=== PATIENT | male | born 1995 | race Caucasian/White ===

== ENCOUNTER 2018-03-30 19:15 | Emergency (ER) | payer OTHER ==
[~2018-03-30] VITALS: Ht 190.5 cm; Wt 133.8 kg
--- OUTSIDE RECORDS SUMMARY | 2018-03-30 19:21 | XMS REPORT ---
Author Author ARMANI KEITH [facility] Address [address] [place] [address] Care Team Providers Care Mail Technician Name Role Phone ARMANI KEITH Unavailable PROBLEMS Type Condition ICD9-CM Code VXO87-RC Code Onset Dates Condition Status SNOMED Code Problem Pain in thoracic spine 724.1 Active 696801299 Problem Sprain and strain of unspecified site of foot 845.10 Active 78333690 Problem Redness or discharge of eye 379.93 Active 75202748 Problem Encounter for removal of sutures V58.32 Active 37997907 Problem Personal history of other allergy, other than to medicinal agents V15.09 Active 132724540 Problem Other malaise and fatigue 780.79 Active 341383447 Problem Allergic rhinitis due to pollen 477.0 Active 55023662 Problem Acute tonsillitis 463 Active 74251609 Problem Need for prophylactic vaccination and inoculation, Influenza V04.81 Active 371449074 Problem Unspecified 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 Active 363595679 Problem Sprain and strain of unspecified site of hand 842.10 Active 50612949 Problem Lipoma of 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.0 Active 10780064 Problem Injury, other and unspecified, knee, leg, ankle, and foot 959.7 Active 465691627 Problem Insomnia, unspecified 780.52 Active 503515643 Problem Dehydration 276.51 Active 80914555 Problem Postnasal drip 784.91 Active 33105103 Problem Allergic rhinitis, unspecified allergic rhinitis trigger, unspecified rhinitis seasonality J30.9 Active 03277089 Problem Other chronic pain G89.29 Active 11149689 Problem Unspecified disorder of skin and subcutaneous tissue 709.9 Active 71914915 Problem Other accident caused by striking against or being struck accidentally by objects or persons E917.9 Active Problem Hip, thigh, leg, and ankle, abrasion or friction burn, infected 916.1 Active Problem Acute pharyngitis 462 Active 710897720 Problem Acute sinusitis, unspecified 461.9 Active 36820365 Problem 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 97441655 Problem Screening examination for venereal disease V74.5 Active 567108753 Problem Esophageal reflux 530.81 Active 504067111 Problem Other acne 706.1 Active 46367525 Problem Other convulsions 780.39 Active 05132117 Problem Sebaceous cyst 706.2 Active 432731281 Problem Pain in soft tissues of limb 729.5 Active 10452691 Problem Allergic rhinitis, due to food 477.1 Active 687298584 Problem Intestinal infection due to other organism, NEC 008.8 Active 87159043 Problem Pain in joint, site unspecified 719.40 Active 63728305 Problem Allergy, unspecified not elsewhere classified 995.3 Active 253312730 ALLERGIES No Known Allergies SOCIAL HISTORY No smoking Hx information available PLAN OF CARE VITAL SIGNS MEDICATIONS No Known Medications RESULTS No Results PROCEDURES No Known procedures IMMUNIZATIONS No Known Immunizations
--- OUTSIDE RECORDS SUMMARY | 2018-03-30 19:22 | XMS REPORT ---
Author ARMAIN Ruiz [facility] e[employer] Address Unknown Phone Unavailable Care Team Providers Care Director Of Outpatient Services Name Role Phone ARMANI KEITH CP Unavailable Allergies, Adverse Reactions, Alerts Substance Reaction Event Type Cephalexin rash Drug Allergy Aspirin dizziness Drug Allergy Amoxicillin Info Not Available Drug Allergy Problems Problem Type Condition Code Onset Dates Condition Status Problem Sprain and strain of unspecified site of foot 845.10 Active Problem Other acne 706.1 Active Problem Encounter for removal of sutures V58.32 Active Problem Pain in thoracic spine 724.1 Active Problem Redness or discharge of eye 379.93 Active Problem Personal history of other allergy, other than to medicinal agents V15.09 Active Problem Other malaise and fatigue 780.79 Active Problem Allergic rhinitis due to pollen 477.0 Active Problem Acute tonsillitis 463 Active Problem Intestinal infection due to other organism, NEC 008.8 Active Problem Need for prophylactic vaccination and inoculation, Influenza V04.81 Active Problem Unspecified 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 Active Problem Sprain and strain of unspecified site of hand 842.10 Active Problem Lipoma of 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.0 Active Problem Postnasal drip 784.91 Active Problem Insomnia, unspecified 780.52 Active Problem Other chronic pain G89.29 Active Problem 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 Problem Other accident caused by striking against or being struck accidentally by objects or persons E917.9 Active Problem Hip, thigh, leg, and ankle, abrasion or friction burn, infected 916.1 Active Problem Allergic rhinitis, unspecified allergic rhinitis trigger, unspecified rhinitis seasonality J30.9 Active Problem Injury, other and unspecified, knee, leg, ankle, and foot 959.7 Active Problem Acute sinusitis, unspecified 461.9 Active Problem Dehydration 276.51 Active Problem Screening examination for venereal disease V74.5 Active Problem Acute pharyngitis 462 Active Assessment Low back pain M54.5 Active Problem Pain in soft tissues of limb 729.5 Active Assessment Allergic rhinitis, unspecified allergic rhinitis trigger, unspecified rhinitis seasonality J30.9 Active Problem Esophageal reflux 530.81 Active Problem Unspecified disorder of skin and subcutaneous tissue 709.9 Active Assessment Other chronic pain G89.29 Active Problem Sebaceous cyst 706.2 Active Problem Allergy, unspecified not elsewhere classified 995.3 Active Problem Allergic rhinitis, due to food 477.1 Active Problem Other convulsions 780.39 Active Problem Pain in joint, site unspecified 719.40 Active Medications Medication Code System Code Instructions Start Date End Date Status Dosage Depakote ER [facility] [address]-72 500 MG Orally 3 times a day 1 tablet Xyzal [facility] [address]-09 5 mg Orally Once a day Aug 28, 2016 Oct 27, 2016 1 tablet in the evening PredniSONE [facility] [address]-04 20 mg Orally Once a day Aug 28, 2016 Sep 02, 2016 2 tablets Naproxen [facility] [address]-14 500 MG Orally every 12 hrs Aug 28, 2016 1 tablet as needed Procedures Procedure Coding System Code Date Office Visit, Est Pt., Level 3 CPT-4 77117 Aug 28, 2016 Vital Signs Date/Time: Aug 28, 2016 Cardiac Monitoring Heart Rate 80 bpm Weight 274.0 lbs Height 74 in BMI 35.18 Index Blood Pressure Diastolic 74 mmHg Blood Pressure Systolic 124 mmHg Results No Known Results Summary Purpose eClinical[employer] Submission
--- OUTSIDE RECORDS SUMMARY | 2018-03-30 19:22 | XMS REPORT ---
Author Author NILE MOELLER Organization [employer] Address Unknown Phone Unavailable Care Team Providers Care Video Game Animator Name Role Phone NILE MOELLER CP Unavailable Allergies, Adverse Reactions, Alerts Substance Reaction Event Type Cephalexin rash Drug Allergy Aspirin dizziness Drug Allergy Amoxicillin Info Not Available Drug Allergy Problems Problem Type Condition Code Onset Dates Condition Status Assessment Acute pharyngitis, unspecified J02.9 Active Assessment Acute upper respiratory infection, unspecified J06.9 Active Problem Sprain and strain of unspecified site of foot 845.10 Active Problem Other acne 706.1 Active Problem Pain in thoracic spine 724.1 Active Problem Encounter for removal of sutures V58.32 Active Problem Redness or discharge of eye 379.93 Active Problem Personal history of other allergy, other than to medicinal agents V15.09 Active Problem Other malaise and fatigue 780.79 Active Problem Allergy, unspecified not elsewhere classified 995.3 Active Problem Allergic rhinitis due to pollen 477.0 Active Problem Allergic rhinitis, due to food 477.1 Active Problem Acute tonsillitis 463 Active Problem Intestinal infection due to other organism, NEC 008.8 Active Problem Lipoma of 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.0 Active Problem Unspecified 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 Active Problem Screening examination for venereal disease V74.5 Active Problem Acute pharyngitis 462 Active Problem Injury, other and unspecified, knee, leg, ankle, and foot 959.7 Active Problem Sprain and strain of unspecified site of hand 842.10 Active Problem 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 Problem Need for prophylactic vaccination and inoculation, Influenza V04.81 Active Problem Postnasal drip 784.91 Active Problem Insomnia, unspecified 780.52 Active Problem Acute sinusitis, unspecified 461.9 Active Problem Dehydration 276.51 Active Assessment Allergic rhinitis J30.9 Active Problem Unspecified disorder of skin and subcutaneous tissue 709.9 Active Assessment Other viral agents as the cause of diseases classified elsewhere B97.89 Active Problem Sebaceous cyst 706.2 Active Problem Hip, thigh, leg, and ankle, abrasion or friction burn, infected 916.1 Active Problem Other accident caused by striking against or being struck accidentally by objects or persons E917.9 Active Problem Other convulsions 780.39 Active Problem Pain in joint, site unspecified 719.40 Active Problem Pain in soft tissues of limb 729.5 Active Problem Esophageal reflux 530.81 Active Medications Medication Code System Code Instructions Start Date End Date Status Dosage Xyzal [facility] [address]-92 5 MG Orally Once a day 1 tablet in the evening Flonase [facility] [address]-43 50 MCG/ACT Nasally 2 times a day for allergies Aug 07, 2015 1 spray in each nostril Depakote ER [facility] [address]-81 500 MG Orally 3 times a day 1 tablet Procedures Procedure Coding System Code Date Office Visit, Est Pt., Level 3 CPT-4 39473 Nov 26, 2015 STREP A ASSAY W/OPTIC CPT-4 43254 Nov 26, 2015 Vital Signs Date/Time: Nov 26, 2015 Temperature 98.2 F Weight 269.6 lbs Height 74 in BMI 34.61 Index Blood Pressure Diastolic 80 mmHg Blood Pressure Systolic 142 mmHg Cardiac Monitoring Heart Rate 86 bpm Results No Known Results Summary Purpose eClinicalWorks Submission
--- OUTSIDE RECORDS SUMMARY | 2018-03-30 19:22 | XMS REPORT ---
Author Author ARMANI KEITH Organization [facility] Address [address] [place] [address] Care Team Providers Care Android Developer Name Role Phone ARMANI KEITH Unavailable PROBLEMS Type Condition ICD9-CM Code ATA22-GC Code Onset Dates Condition Status SNOMED Code Problem Bladder spasms N32.89 Active [id number] ALLERGIES Substance Reaction Event Type Date Status Wasp Venom Unknown Drug Allergy Jul, Active Cephalexin rash Drug Allergy Jul, Active Bactrim DS Unknown Drug Allergy Jul, Active Aspirin dizziness Drug Allergy Jul, Active Amoxicillin Unknown Drug Allergy Jul, Active ENCOUNTERS Encounter Location Date Diagnosis [facility] [address] [address] March, [facility] [address] [address] Feb, Pharyngitis due to other organism J02.8 [facility] [address] [place] [address] Feb, Pharyngitis due to other organism J02.8 [facility] [id number] [place] [address] Feb, Sore throat J02.9 ; Fatigue, unspecified type R53.83 and Strep pharyngitis J02.0 [facility] [id number] [place] [address]72 Feb, Acute nasopharyngitis J00 [facility] [id number] [place] [address]37 -[address]605 Feb, Lower abdominal pain R10.30 [facility] [address] [address] Feb, Bladder spasms N32.89 and Urinary frequency R35.0 [facility] [place] [address] [address] Jan, Strep throat J02.0 [facility] [place] [address] [address] -[address]60 Dec, Seasonal allergic rhinitis, unspecified trigger J30.2 [place] [address] [address] Nov, Acute suppurative otitis media of both ears without spontaneous rupture of tympanic membranes, recurrence not specified H66.003 [facility] [place] [address] [address] Nov, Acute suppurative otitis media of both ears without spontaneous rupture of tympanic membranes, recurrence not specified H66.003 [facility] [place] [address] [address] Nov, Acute suppurative otitis media of both ears without spontaneous rupture of tympanic membranes, recurrence not specified H66.003 [place] [address] [address] Oct, [place] [address] [address] Jul, Seizures R56.9 [place] [address] [address]- [address] 14 Jul, 2017 Seizures R56.9 ; Other chronic pain G89.29 ; Pain in left ankle and joints of left foot M25.572 and Allergic rhinitis, unspecified allergic rhinitis trigger, unspecified rhinitis seasonality J30.9 [facility] [place] [address] 24[address] -9811 07 Jul, 2017 Acute seasonal allergic rhinitis due to other allergen J30.89 [facility] [place] [address] 61362 -[address] Jun, Left foot pain M79.672 and Left lateral ankle pain M25.[address] [address] Aug, Allergic rhinitis, unspecified allergic rhinitis trigger, unspecified rhinitis seasonality J30.9 ; Low back pain M54.5 and Other chronic pain G89.29 [facility] [address] [place] [address]76 Jul, [facility] [address] [place] [address] 46584 -4512 Jul, Low back pain M54.5 and Other chronic pain G89.29 [facility] [address] [address] Jul, Acute maxillary sinusitis, recurrence not specified J01.00 [facility] [address] [address] Jun, Cellulitis of left lower extremity L03.116 [facility] [address] [address]68 -1194 Apr, Wrist pain, left M25.532 [facility] [address] [address]87 March, Low back pain M54.5 ; Fever, unspecified R50.9 and Strep pharyngitis J02.0 [facility] [address] [address] March, Hordeolum externum of left upper eyelid H00.014 and Acute follicular conjunctivitis of left eye H10.[address] [address]67 Jan, Folliculitis L73.9 [facility] [address] 28[address] -[address]67 Jan, Screen for sexually transmitted diseases Z11.3 [place] [id number] [place] [address] 38157- 2480 Nov, [facility] [id number] [place] [address] 63460- 1685 Nov, Gen idiopathic epilepsy, not intractable, 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 [facility] [address] [place] [address] 0[address]01 -2885 Nov, Malaise R53.81 ; Upper respiratory infection J06.9 and Pharyngitis J02.9 [facility] [id number] [place] [address] 14216 -6916 Nov, Acute pharyngitis, unspecified J02.9 ; Acute upper respiratory infection, unspecified J06.9 ; Other viral agents as the cause of diseases classified elsewhere B97.89 and Allergic rhinitis J30.9 [facility] [id number] [place] [address] 59670 -8044 Oct, Testicular pain N50.8 [place] [address] [place] [address] [id number] [place] [address] 87154- 5113 15 Jul, 2015 Sinusitis 473.9 [place] [address] [place] [address] [id number] [place] [address] 75918- 9015 12 Apr, 2015 Back pain 724.5 [place] [address] [place] [id number] [place] [address] 14604- 9475 11 Apr, 2015 [place] [address] [place] [address] [id number] [place] [address] 19842- 0269 14 Feb, 2015 [facility] [id number] [place] [address] 22252- 0929 Feb, [facility] [id number] [place] [address] 94026- 3931 04 Jan, 2015 [facility] [id number] [place] [address] 08942- 9211 Nov, [facility] [id number] [place] [address] 77653- 6961 Nov, [facility] [place] [facility] [address] [id number] [place] [address]- 8533 Nov, [facility] [place] [facility] [address] [id number] [place] [address]- 6582 Nov, [facility] [place] [facility] [address] [facility] [id number] [place] [address]- 8803 Oct, [facility] [place] [facility] [address] [id number] [place] [address]- 3604 Oct, [facility] [place] [facility] [address] [id number] [place] [address]- 4332 Aug, [facility] [place] [facility] [address] [id number] [place] [address]- 0913 Aug, [facility] [place] [facility] [address] [id number] [place] [address]- 9861 Aug, [facility] [place] [facility] [address] [id number] [place] [address]- 2933 Aug, [facility] [place] [facility] [address] [id number] [place] [address]- 5635 Aug, [facility] [place] [facility] [address] [facility] [id number] [place] [address]- 5095 Aug, [facility] [place] [facility] [address] [id number] [place] [address]- 6524 Aug, [facility] [place] [facility] [address] [id number] [place] [address]- 9000 Aug, [facility] [place] [facility] [address] [id number] [place] [address]- 8216 Jun, [facility] [place] [facility] [address] [id number] [place] [address]- 9747 Jun, [facility] [place] [facility] [address] [facility] [id number] [place] [address]- 0088 Jun, [facility] [place] [facility] [address] [id number] [place] [address]- 1926 Jun, [facility] [place] [facility] [address] [id number] [place] [address]- 7031 Jun, [facility] [place] [facility] [address] [id number] [place] [address]- 8935 Jun, [facility] [place] [facility] [address] [id number] [place] [address]- 0208 Jun, [facility] [place] [facility] [address] [id number] [place] [address]- 0010 Jun, [facility] [place] [facility] [address] [id number] [place] [address]- 5240 Jun, [facility] [place] [facility] [address] [id number] [place] [address]- 2322 Jun, [facility] [place] [facility] [address] [id number] [place] [address]- 7030 May, [facility] [place] [facility] [address] [id number] [place] [address]- 3098 May, [facility] [place] [facility] [address] [id number] [place] [address]- 4373 March, [facility] [place] [facility] [address] [id number] [place] [address]- 0253 March, [facility] [place] [facility] [address] [id number] [place] [address]- 5335 March, [facility] [place] [facility] [address] [id number] [place] [address]- 3931 March, [facility] [place] [facility] [address] [id number] [place] [address]27 Feb, [facility] [place] [facility] [address] [id number] [place] 2115 Feb, [facility] [place] [facility] [address] [id number] [place] [address]- 3649 Jan, [facility] [place] [facility] [address] [id number] [place] [address]- 1739 Jan, [facility] [place] [facility] [address] [id number] [place] [address]- 3676 Jan, [facility] [place] [facility] [address] [id number] [place] [address]- 8489 Jan, [facility] [place] [facility] [address] [id number] [place] [address]- 3199 Dec, [facility] [place] [facility] [address] [id number] [place] [address]- 7101 Dec, [facility] [place] [facility] [address] [id number] [place] [address]- 6610 Dec, [facility] [place] [facility] [address] [id number] [place] [address]- 9892 Dec, [facility] [place] [facility] [address] [id number] [place] [address]- 3535 Dec, [facility] [place] [facility] [address] [id number] [place] [address]- 7421 Dec, [facility] [place] [facility] [address] [id number] [place] [address]- 8003 Nov, [facility] [place] [facility] [address] [id number] [place] [address]- 2961 Nov, [facility] [place] [facility] [address] [id number] [place] [address]- 7409 Nov, [facility] [place] [facility] [address] [id number] [place] [address]- 3472 Nov, [facility] [place] [facility] [address] [id number] [place] [address]- 4938 Nov, [facility] [place] [facility] [address] [id number] [place] [address]- 2647 Nov, [facility] [place] [facility] [address] [id number] [place] [address]- 9164 Nov, [facility] [address] [id number] [place] [address]- 7776 Nov, [facility] [address] [id number] [place] [address]- 6293 Nov, [facility] [address] [id number] [place] [address]- 0952 Nov, [facility] [address] [id number] [place] [address]- 7983 Nov, [facility] [address] [id number] [place] [address]- 6282 Nov, [facility] [address] [id number] [place] [address]- 7771 Oct, [facility] [address] [id number] [place] [address]- 9973 Oct, [facility] [address] [id number] [place] [address]- 2243 Oct, [facility] [address] [id number] [place] [address]- 4090 Oct, [facility] [address] [id number] [place] [address]- 4168 Sep, [facility] [address] [id number] [place] [address]- 7216 Sep, [facility] [address] [id number] [place] [address]- 1741 Sep, [facility] [place] [facility] [address] [id number] [place] [address]- 6164 Sep, [facility] [address] [id number] [place] [address]- 9573 Sep, [facility] [address] [id number] [place] [address]- 4193 Sep, [facility] [place] [facility] [address] [id number] [place] [address]- 4558 Sep, [facility] [place] [facility] [address] [id number] [place] [address]- 7346 Sep, [facility] [place] [facility] [address] [id number] [place] [address]- 7905 30 Jul, 2013 [facility] [place] [facility] [address] [id number] [place] [address]- 7679 Jul, [facility] [place] [facility] [address] [id number] [place] [address]- 4538 May, [facility] [place] [facility] [address] [id number] [place] [address]- 8669 Apr, [facility] [place] [facility] [address] [id number] [place] [address]- 4543 Apr, [facility] [place] [facility] [address] [id number] [place] [address]- 2220 Apr, [facility] [place] [facility] [address] [id number] [place] [address]- 1383 Apr, [facility] [place] [facility] [address] [id number] [place] [address]- 0874 Apr, [facility] [place] [facility] [address] [id number] [place] [address]- 7872 Apr, [facility] [place] [facility] [address] [id number] [place] [address]- 0619 Apr, [facility] [place] [facility] [address] [id number] [place] [address]- 9677 March, [facility] [place] [facility] [address] [id number] [place] [address]- 1954 March, [facility] [place] [facility] [address] [id number] [place] [address]- 9176 Jan, [facility] [place] [facility] [address] [id number] [place] [address]- 9336 28 Dec, 2012 [facility] [address] [id number] [place] [address]- 9210 17 Nov, 2012 [facility] [place] [facility] [address] [id number] [place] [address]- 0334 Nov, [facility] [address] [id number] [place] [address]- 3437 Oct, [facility] [place] [facility] [address] [id number] [place] [address]- 1721 Oct, [facility] [place] [facility] [address] [id number] [place] [address]- 2806 Oct, [facility] [place] [facility] [address] [id number] [place] [address]- 6179 Oct, [facility] [address] [id number] [place] [address]- 2397 Oct, [facility] [place] [facility] [address] [id number] [place] [address]- 7882 Oct, [facility] [place] [facility] [address] [id number] [place] [address]- 3952 Sep, [facility] [place] [facility] [address] [id number] [place] [address]- 5846 Sep, [facility] [place] [facility] [address] [id number] [place] [address]- 5539 Sep, [facility] [place] [facility] [address] [id number] [place] [address]- 3848 Sep, [facility] [place] [facility] [address] [id number] [place] [address]- 3162 Sep, [facility] [place] [facility] [address] [id number] [place] [address]- 8676 Sep, [facility] [place] [facility] [address] [id number] [place] [address]- 4749 Sep, [facility] [place] [facility] [address] [id number] [place] [address]- 8880 Sep, [facility] [place] [facility] [address] [id number] [place] [address]- 2375 Sep, [facility] [place] [facility] [address] [id number] [place] 8936 Sep, [facility] [place] [facility] [address] [id number] [place] [address]- 1874 Sep, [facility] [place] [facility] [address] [id number] [place] [address]- 0870 Sep, [facility] [place] [facility] [address] [id number] [place] [address]- 5050 Aug, [facility] [place] [facility] [address] [id number] [place] [address]- 1430 Aug, [facility] [place] [facility] [address] [id number] [place] [address]- 8944 Aug, [facility] [place] [facility] [address] [id number] [place] [address]- 4863 Aug, [facility] [place] [facility] [address] [id number] [place] [address]- 5661 Aug, [facility] [place] [facility] [address] [id number] [place] [address]- 7026 Aug, [facility] [place] [facility] [address] [id number] [place] [address]- 5469 Aug, [facility] [place] [facility] [address] [id number] [place] [address]- 3518 Aug, [facility] [place] [facility] [address] [id number] [place] [address]- 8184 Aug, [facility] [place] [facility] [address] [id number] [place] 4007 Aug, [facility] [place] [facility] [address] [id number] [place] [address]- 1659 Jul, [facility] [place] [facility] [address] [id number] [place] [address]- 2093 Jul, [facility] [place] [facility] [address] [id number] [place] [address]- 3196 Jun, [facility] [place] [facility] [address] [id number] [place] [address]- 3709 Jun, [facility] [place] [facility] [address] [id number] [place] [address]- 9797 Jun, [facility] [place] [facility] [address] [id number] [place] [address]- 2903 May, [facility] [place] [facility] [address] [id number] [place] [address]- 6378 May, [facility] [place] [facility] [address] [id number] [place] [address]- 0568 May, [facility] [place] [facility] [address] [id number] [place] [address]- 5990 May, [facility] [place] [facility] [address] [id number] [place] [address]- 0717 Apr, [facility] [place] [facility] [address] [id number] [place] [address]- 7275 Apr, [facility] [place] [facility] [address] [id number] [place] [address]- 0386 Apr, [facility] [place] [facility] [address] [id number] [place] [address]- 9705 Apr, [facility] [place] [facility] [address] [id number] [place] [address]- 8442 March, [facility] [place] [facility] [address] [id number] [place] [address]- 9776 Jan, [facility] [place] [facility] [address] [id number] [place] [address]- 0776 Dec, [facility] [place] [facility] [address] [address]- 9408 Dec, [facility] [address] [address]- 3067 Oct, [facility] [address] [address]- 9165 Oct, [facility] [id number] [place] [address]- 6196 Oct, [facility] [address] [id number] [address]- 1944 Oct, [facility] [id number] [place] [address], [place] [address]- 8505 Oct, [facility] [address] [address]- 5637 Oct, [facility] [id number] [place] [address]53- 5806 Oct, [facility] [address] [address]- 2595 Oct, [facility] [address] [address]- 1279 Sep, [facility] [address] [address]- 8319 Sep, [facility] [address] [address]- 6063 Sep, [facility] ([facility] [id number] [address] Sep, [facility] ([facility] [id number] [address] Aug, [facility] ([facility] [id number] [address] Jul, 2011 IMMUNIZATIONS Vaccine Route Administration Date Status SOLUMEDROL (UP TO 125 MG) Unknown Aug 06, 2017 Administered SOCIAL HISTORY Never Assessed REASON FOR VISIT CHM f/u, medication refilled, needs neurologist referral, toes and ankle still in pain from previous injury--Fidelia Hernandez MA PLAN OF CARE VITAL SIGNS Height 74 in 2017-08-06 Weight 292.6 lbs 2017-08-06 Temperature 97.7 degrees Fahrenheit 2017-08-06 Heart Rate 82 bpm 2017-08-06 Respiratory Rate 20 2017-08-06 BMI 37.56 kg/m2 2017-08-06 Blood pressure systolic 124 mmHg 2017-08-06 Blood pressure diastolic 86 mmHg 2017-08-06 MEDICATIONS Medication Instructions Dosage Frequency Start Date End Date Duration Status Depakote ER 500 mg Orally 2 times a day 2 tablets 12h Active Naproxen 500 MG Orally every 12 hrs 1 tablet as needed 12h Aug, Active EPINEPHrine 0.3 MG/0.3ML Injection 1 time as needed 0.3 mg IM Active Flonase 50 MCG/ACT Nasally 2 times a day for allergies 1 spray in each nostril Jul, Active Keppra XR 500 mg Orally Once a day 2 tablets 24h Active Xyzal 5 mg Orally Once a day 1 tablet in the evening 24h Jun, Nov, 30 day(s) Active RESULTS No Results PROCEDURES Procedure Date Ordered Result Body Site SOLUMEDROL (UP TO 125 MG) Aug 06, 2017 THER/PROPH/DIAG INJ, SC/IM Aug 06, 2017 INSTRUCTIONS MEDICATIONS ADMINISTERED No Known Medications MEDICAL (GENERAL) HISTORY Type Description Date Medical History seizures Medical History allergic rhinitis Medical History mood disorder Medical History back pain
--- OUTSIDE RECORDS SUMMARY | 2018-03-30 19:22 | XMS REPORT ---
Author Author GUILLERMINA Ortiz [facility] Address [address] [place] [address] Care Team Providers Care Crab Steamer Name Role Phone jeffSALENAGUILLERMINA IRENE Unavailable PROBLEMS Type Condition ICD9-CM Code PLM44-YQ Code Onset Dates Condition Status SNOMED Code Problem Bladder spasms N32.89 Active 599765702 ALLERGIES Substance Reaction Event Type Date Status Cephalexin rash Drug Allergy Jul, Active Aspirin dizziness Drug Allergy Jul, Active Amoxicillin Unknown Drug Allergy Jul, Active ENCOUNTERS Encounter Location Date Diagnosis [place] [address] [address] March, [facility] [address] [address] Feb, Pharyngitis due to other organism J02.8 [facility] [address] [address] Feb, Pharyngitis due to other organism J02.8 [facility] [address] [place] [id number] [place] [address]90 Feb, Sore throat J02.9 ; Fatigue, unspecified type R53.83 and Strep pharyngitis J02.0 [facility] [address] [place] [id number] [place] [address]6625 Feb, Acute nasopharyngitis J00 [facility] [address] [address] Feb, Lower abdominal pain R10.30 [facility] [address] [place] [id number] [place] [address]25 -2431 02 Apr, 2018 Bladder spasms N32.89 and Urinary frequency R35.0 [facility] [address] [place] [id number] [place] [address] -1088 Jan, Strep throat J02.0 [facility] WALK [facility] [place] [address] [address] [place] [id number] [place] [address]28 -1358 Dec, Seasonal allergic rhinitis, unspecified trigger J30.2 [place] [address] [address] Nov, Acute suppurative otitis media of both ears without spontaneous rupture of tympanic membranes, recurrence not specified H66.003 [facility] WALK [place] [address] [address] Nov, Acute suppurative otitis media of both ears without spontaneous rupture of tympanic membranes, recurrence not specified H66.003 [facility] WALK IN [place] [address] [address] Nov, Acute suppurative otitis media of both ears without spontaneous rupture of tympanic membranes, recurrence not specified H66.003 [place] [address] [address] [place] [id number] [place] [address] 22790- 1596 Oct, [place] [address] [address] 21 Jul, 2017 Seizures R56.9 [place] [address] [address] [place] [id number] [place] [address] 25905- 6787 14 Jul, 2017 Seizures R56.9 ; Other chronic pain G89.29 ; Pain in left ankle and joints of left foot M25.572 and Allergic rhinitis, unspecified allergic rhinitis trigger, unspecified rhinitis seasonality J30.9 [facility] WALK [place] [address] 46[address] -[address]42 07 Jul, 2017 Acute seasonal allergic rhinitis due to other allergen J30.89 [facility] WALK [place] [address] [address] [place] [id number] [place] [address]19 -1797 Jun, Left foot pain M79.672 and Left lateral ankle pain M25.572 [place] [id number] [place] [address]98- 4286 Aug, Allergic rhinitis, unspecified allergic rhinitis trigger, unspecified rhinitis seasonality J30.9 ; Low back pain M54.5 and Other chronic pain G89.29 [facility] [address] [place] [address]8 Jul, [facility] [address] [place] [address] 53598 -2570 Jul, Low back pain M54.5 and Other chronic pain G89.29 [facility] [address] [address] Jul, Acute maxillary sinusitis, recurrence not specified J01.00 [facility] [address] [address] Jun, Cellulitis of left lower extremity L03.116 [facility] [address] [address]60 Apr, Wrist pain, left M25.532 [facility] [address] [address] March, Low back pain M54.5 ; Fever, unspecified R50.9 and Strep pharyngitis J02.0 [facility] WALK IN [address] [address] March, Hordeolum externum of left upper eyelid H00.014 and Acute follicular conjunctivitis of left eye H10.[address] [address] Jan, Folliculitis L73.9 [facility] [address] [address]6 Jan, Screen for sexually transmitted diseases Z11.[address] [address]- [address]79 Nov, [facility] [address] [place] [id number] [place] [address] 14413- 4640 Nov, Gen idiopathic epilepsy, not intractable, 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 [facility] WALK IN [facility] [id number] [place] [address]61 -5766 Nov, Malaise R53.81 ; Upper respiratory infection J06.9 and Pharyngitis J02.9 [facility] [address] [place] [id number] [place] [address]127 -5695 Nov, Acute pharyngitis, unspecified J02.9 ; Acute upper respiratory infection, unspecified J06.9 ; Other viral agents as the cause of diseases classified elsewhere B97.89 and Allergic rhinitis J30.9 [facility] [address] [place] [id number] [place] [address] 88429 -1886 Oct, Testicular pain N50.8 [place] [address] [address] [place] [id number] [place] [address] 66184- 9855 15 Jul, 2015 Sinusitis 473.9 [place] [address] [address] [place] [id number] [place] [address] 81192- 2698 12 Apr, 2015 Back pain 724.5 [place] [address] [address] [place] [id number] [place] [address] 33557- 3393 11 Apr, 2015 [place] [address] [place] [id number] [place] [address] 02558- 3550 14 Feb, 2015 [place] [address] [address] [place] [id number] [place] [address] 28954- 3916 13 Feb, 2015 [place] [address] [address]- 2701 04 Jan, 2015 [facility] [address] [place] [id number] [place] [address] 83400- 2676 14 Nov, 2014 [place] [address] [address] [place] [id number] [place] [address] 83394- 7062 Nov, [facility] [place] [facility] [address] [id number] [place] [address]- 1826 Nov, [facility] [place] [facility] [address] [id number] [place] [address]- 3692 Nov, [facility] [place] [facility] [address] [id number] [place] [address]- 6696 Oct, [facility] [place] [facility] [address] [id number] [place] [address]- 7509 Oct, [facility] [place] [facility] [address] [id number] [place] [address]- 9483 Aug, [facility] [place] [facility] [address] [id number] [place] [address]- 9115 Aug, [facility] [place] [facility] [address] [id number] [place] [address]- 0775 Aug, [facility] [place] [facility] [address] [id number] [place] [address]- 4874 Aug, [facility] [place] [facility] [address] [id number] [place] [address]- 0788 Aug, [facility] [place] [facility] [address] [id number], [place] [address]- 8503 Aug, [facility] [place] [facility] [address] [id number], [place] [address]- 1041 Aug, [facility] [place] [facility] [address] [id number], [place] [address]- 4127 Aug, [facility] [place] [facility] [address] [id number] [place] [address]- 7103 Jun, [facility] [place] [facility] [address] [id number], [place] [address]- 0643 Jun, [facility] [place] [facility] [address] [id number], [place] [address]- 1794 Jun, [facility] [place] [facility] [address] [id number], [place] [address]- 3873 Jun, [facility] [place] [facility] [address] [id number] [place] [address]- 4501 Jun, [facility] [place] [facility] [address] [id number] [place] [address]- 5674 Jun, [facility] [place] [facility] [address] [id number] [place] [address]- 5499 Jun, [facility] [place] [facility] [address] [id number] [place] [address]- 0412 Jun, [facility] [place] [facility] [address] [id number] [place] [address]- 2577 Jun, [facility] [place] [facility] [address] [id number] [place] [address]- 2071 Jun, [facility] [place] [facility] [address] [id number] [place] [address]- 8610 May, [facility] [place] [facility] [address] [id number] [place] [address]- 9924 May, [facility] [place] [facility] [address] [id number] [place] [address]- 6750 March, [facility] [place] [facility] [address] [id number] [place] [address]- 9587 March, [facility] [place] [facility] [address] [id number] [place] [address]- 7031 March, [facility] [place] [facility] [address] [id number] [place] [address]- 7542 March, [facility] [place] [facility] [address] [id number] [place] [address]- 1264 Feb, [facility] [place] [facility] [address] [id number] [place] [address]- 4150 Feb, [facility] [place] [facility] [address] [id number] [place] [address]- 5406 Jan, [facility] [place] [facility] [address] [id number] [place] [address]- 7596 Jan, [facility] [place] [facility] [address] [id number] [place] [address]- 3083 Jan, [facility] [place] [facility] [address] [id number] [place] [address]- 8042 Jan, [facility] [place] [facility] [address] [id number] [place] [address]- 1010 Dec, [facility] [place] [facility] [address] [id number] [place] [address]- 2446 Dec, [facility] [place] [facility] [address] [id number] [place] [address]- 3895 Dec, [facility] [place] [facility] [address] [id number] [place] [address]- 8103 Dec, [facility] [place] [facility] [address] [id number] [place] [address]- 4192 Dec, [facility] [place] [facility] [address] [id number] [place] [address]- 9820 Dec, [facility] [place] [facility] [address] [id number] [place] [address]- 6442 Nov, [facility] [place] [facility] [address] [id number] [place] [address]- 7716 Nov, [facility] [place] [facility] [address] [id number] [place] [address]- 3625 Nov, [facility] [place] [facility] [address] [id number] [place] [address]- 4159 Nov, [facility] [place] [facility] [address] [id number] [place] [address]- 2379 Nov, [facility] [place] [facility] [address] [id number] [place] [address]- 5719 Nov, [facility] [place] [facility] [address] [id number], [place] [address]- 8818 Nov, [facility] [address] [id number] [place] [address]- 8296 Nov, [facility] [place] [facility] [address] [id number] [place] 0884 Nov, [facility] [place] [facility] [address] [id number] [place] [address]- 2146 Nov, [facility] [place] [facility] [address] [id number] [place] [address]- 3174 Nov, [facility] [place] [facility] [address] [id number] [place] [address]- 8870 Nov, [facility] [place] [facility] [address] [id number] [place] [address]- 7526 Oct, [facility] [address] [id number] [place] [address]- 2152 Oct, [facility] [place] [facility] [address] [id number] [place] [address]- 6960 Oct, [facility] [place] [facility] [address] [id number] [place] [address]- 4937 Oct, [facility] [place] [facility] [address] [id number] [place] [address]- 8842 Sep, [facility] [place] [facility] [address] [id number] [place] [address]- 3170 Sep, [facility] [place] [facility] [address] [id number] [place] [address]- 7081 Sep, [facility] [place] [facility] [address] [id number] [place] [address]- 3047 Sep, [facility] [place] [facility] [address] [id number] [place] [address]- 2475 Sep, [facility] [place] [facility] [address] [id number] [place] [address]- 8067 Sep, [facility] [place] [facility] [address] [id number] [place] [address]- 5964 Sep, [facility] [address] [id number] [place] [address]- 9838 Sep, [facility] [place] [facility] [address] [id number] [place] [address]- 7317 30 Jul, 2013 [facility] [place] [facility] [address] [id number] [place] [address]- 2839 Jul, [facility] [place] [facility] [address] [id number] [place] [address]- 8958 May, [facility] [address] [id number] [place] [address]- 7037 Apr, [facility] [place] [facility] [address] [id number] [place] [address]- 4516 Apr, [facility] [place] [facility] [address] [id number] [place] [address]- 8953 Apr, [facility] [address] [id number] [place] [address]- 8135 Apr, [facility] [place] [facility] [address] [id number] [place] [address]- 0801 Apr, [facility] [place] [facility] [address] [id number] [place] [address]- 7891 Apr, [facility] [place] [facility] [address] [id number] [place] [address]- 0720 Apr, [facility] [place] [facility] [address] [id number] [place] [address]- 5400 March, [facility] [place] [facility] [address] [id number] [place] [address]- 1287 March, [facility] [place] [facility] [address] [id number] [place] [address]- 2546 Jan, [facility] [place] [facility] [address] [id number] [place] [address]- 0644 Dec, [facility] [place] [facility] [address] [id number] [place] [address]- 6647 Nov, [facility] [place] [facility] [address] [id number] [place] [address]- 1533 Nov, [facility] [place] [facility] [address] [id number] [place] [address]- 7400 Oct, [facility] [place] [facility] [address] [id number] [place] [address]- 0572 Oct, [facility] [place] [facility] [address] [id number] [place] [address]- 4134 Oct, [facility] [place] [facility] [address] [id number] [place] [address]- 2441 Oct, [facility] [place] [facility] [address] [id number] [place] [address]- 3270 Oct, [facility] [place] [facility] [address] [id number] [place] [address]- 4257 Oct, [facility] [place] [facility] [address] [id number] [place] [address]- 4224 Sep, [facility] [place] [facility] [address] [id number] [place] [address]- 0651 Sep, [facility] [place] [facility] [address] [id number], [place] [address]- 7086 Sep, [facility] [place] [facility] [address] [id number], [place] [address]- 5337 Sep, [facility] [place] [facility] [address] [id number] [place] [address]- 6960 Sep, [facility] [place] [facility] [address] [id number] [place] [address]- 5837 Sep, [facility] [place] [facility] [address] [id number] [place] [address]- 0904 Sep, [facility] [place] [facility] [address] [id number] [place] [address]- 0558 Sep, [facility] [place] [facility] [address] [id number] [place] [address]- 6346 Sep, [facility] [place] [facility] [address] [id number] [place] 3616 Sep, [facility] [place] [facility] [address] [id number] [place] [address]- 2749 Sep, [facility] [place] [facility] [address] [id number] [place] [address]- 2299 Sep, [facility] [place] [facility] [address] [id number] [place] [address]- 7290 Aug, [facility] [place] [facility] [address] [id number] [place] [address]- 7785 Aug, [facility] [place] [facility] [address] [id number] [place] [address]- 0416 Aug, [facility] [place] [facility] [address] [id number] [place] [address]- 4421 Aug, [facility] [place] [facility] [address] [id number] [place] [address]- 9242 Aug, [facility] [place] [facility] [address] [facility] [id number] [place] [address]- 9763 Aug, [facility] [place] [facility] [address] [id number] [place] [address]- 5556 Aug, [facility] [place] [facility] [address] [id number], [place] [address]- 0468 Aug, [facility] [place] [facility] [address] [id number] [place] [address]- 8205 Aug, [facility] [place] [facility] [address] [facility] [id number] [place] [address]- 3719 Aug, [facility] [place] [facility] [address] [id number], [place] [address]- 2369 24 Jul, 2012 [facility] [place] [facility] [address] [id number] [place] [address]- 1159 Jul, [facility] [place] [facility] [address] [id number] [place] [address]- 2859 Jun, [facility] [place] [facility] [address] [id number] [place] [address]- 1664 Jun, [facility] [place] [facility] [address] [id number] [place] [address]- 9215 Jun, [facility] [place] [facility] [address] [id number] [place] [address]- 0947 May, [facility] [place] [facility] [address] [id number] [place] [address]- 6883 May, [facility] [place] [facility] [address] [id number] [place] [address]- 3873 May, [facility] [place] [facility] [address] [id number] [place] [address]- 7870 May, [facility] [place] [facility] [address] [id number] [place] [address]- 8196 Apr, [facility] [place] [facility] [address] [id number] [place] [address]- 9823 Apr, [facility] [place] [facility] [address] [id number] [place] [address]- 9802 Apr, [facility] [place] [facility] [address] [id number] [place] [address]- 9948 Apr, [facility] [place] [facility] [address] [id number] [place] [address]- 2365 March, [facility] [place] [facility] [address] [id number] [place] [address]- 8229 Jan, [facility] [place] [facility] [address] [id number] [place] [address]- 9791 Dec, [facility] [place] [facility] [address] [id number], [place] [address]- 8583 Dec, [facility] [address] [facility] [id number], [place] [address]- 6847 Oct, [facility] [address] [facility] [id number][place]- 6136 Oct, [facility] [id number], [place] [address]- 3559 Oct, [facility] [address] [facility] [id number][place] 8679 Oct, [facility] [address] [facility] [id number], [place] [address]- 0548 15 Oct, 2011 [facility] [address] [facility] [id number][place] 3133 Oct, [facility] [id number] 9979 Oct, [facility] [id number], [place] [address]- 4567 Oct, [facility] [id number], [place] [address]- 5962 Sep, [facility] [address] [id number], [place] [address]- 7690 Sep, [facility] [id number], [place] [address]- 0704 Sep, [facility] [address] [id number], [place] [address]- 9423 Sep, [facility] [address] [id number] 3084 Aug, [facility] [id number] 5383 15 Jul, 2011 IMMUNIZATIONS Vaccine Route Administration Date Status DEXAMETHASONE 4MG/ML (PER 1 MG) IM Intramuscular Jul 30, 2017 Administered DEPO MEDROL 40 MG/ML IM Intramuscular Jul 30, 2017 Administered SOCIAL HISTORY Never Assessed REASON FOR VISIT complaining of cough, watery itchy eyes for the past 3 weeks. [email or web address] PLAN OF CARE Activity Details Follow Up prn Reason: VITAL SIGNS Height 74 in 2017-07-30 Weight 293.0 lbs 2017-07-30 Temperature 98.5 degrees Fahrenheit 2017-07-30 Heart Rate 88 bpm 2017-07-30 Respiratory Rate 20 2017-07-30 BMI 37.61 kg/m2 2017-07-30 Blood pressure systolic 134 mmHg 2017-07-30 Blood pressure diastolic 78 mmHg 2017-07-30 MEDICATIONS Medication Instructions Dosage Frequency Start Date End Date Duration Status Xyzal 5 mg Orally Once a day 1 tablet in the evening 24h Jun, Nov, 30 day(s) Active Keppra XR 500 mg Orally Once a day 2 tablets 24h Active Naproxen 500 MG Orally every 12 hrs 1 tablet as needed 12h Aug, Active Depakote ER 500 mg Orally 2 times a day 2 tablets 12h Active RESULTS No Results PROCEDURES Procedure Date Ordered Result Body Site DEPO MEDROL 40 MG/ML Jul 30, 2017 DEXAMETHASONE 4MG/ML (PER 1 MG) Jul 30, 2017 THER/PROPH/DIAG INJ, SC/IM Jul 30, 2017 INSTRUCTIONS MEDICATIONS ADMINISTERED No Known Medications MEDICAL (GENERAL) HISTORY Type Description Date Medical History seizures Medical History allergic rhinitis Medical History mood disorder Medical History back pain
--- OUTSIDE RECORDS SUMMARY | 2018-03-30 19:22 | XMS REPORT ---
Author Author ARMANI KEITH [facility] eClinicalWorks Address Unknown Phone Unavailable Care Team Providers Care Nitroglycerin Nitrator Operator Batch Name Role Phone ARMANI KEITH CP Unavailable Allergies, Adverse Reactions, Alerts Substance Reaction Event Type Cephalexin rash Drug Allergy Aspirin dizziness Drug Allergy Amoxicillin Info Not Available Drug Allergy Problems Problem Type Condition Code Onset Dates Condition Status Assessment Cellulitis of left lower extremity L03.116 Active Problem Sprain and strain of unspecified [...] 461.9 Active Problem Dehydration 276.51 Active Problem Unspecified disorder of skin and subcutaneous tissue 709.9 Active Problem Sebaceous cyst 706.2 Active Problem [...] Instructions Start Date End Date Status Dosage Naproxen Sodium [facility] [address]-51 not defined Flonase [facility] [address]-27 50 MCG/ACT Nasally 2 times a day for allergies Aug 07, 2015 1 spray in each nostril Doxycycline Hyclate [facility] [address]-44 100 MG Orally every 12 hrs Jun 25, 2016 Jul 05, 2016 1 capsule Xyzal [facility] [address]-62 5 MG Orally Once a day 1 tablet in the evening Depakote ER [facility] [address]-93 500 MG Orally 3 times a day 1 tablet Procedures Procedure Coding System Code Date Office Visit, Est Pt., Level 3 CPT-4 28041 Jun 25, 2016 Vital Signs Date/Time: Jun 25, 2016 Cardiac Monitoring Heart Rate 80 bpm Weight 273.0 lbs Height 74 in BMI 35.05 Index Blood Pressure Diastolic 82 mmHg Blood Pressure Systolic 128 mmHg Results No Known Results Summary Purpose eClinicalWorks Submission
--- OUTSIDE RECORDS SUMMARY | 2018-03-30 19:22 | XMS REPORT ---
Author Author MOELLERNILE Mueller Organization [facility] Address [address] [place] [address] Care Team Providers Care Cancer Genetics Assistant Name Role Phone MOELLERMELISSA MuellerELE Unavailable PROBLEMS Type Condition ICD9-CM Code [id number] Code Onset Dates Condition Status SNOMED Code Problem Other acne 706.1 Active 99277906 Assessment Low back pain M54.5 12 Jul, 2016 Active 915685599 Problem Pain in thoracic spine 724.1 Active 765972975 Problem Sprain and strain of unspecified site of foot 845.10 Active 19718182 Problem Encounter for removal of sutures V58.32 Active 66259481 Problem Redness or discharge of eye 379.93 Active 47812144 Problem Personal history of other allergy, other than to medicinal agents V15.09 Active 253077891 Problem Other malaise and fatigue 780.79 Active 174942051 Problem Allergic rhinitis due to pollen 477.0 Active 23784059 Problem Allergic rhinitis, due to food 477.1 Active 582624874 Problem Acute tonsillitis 463 Active 16498351 Problem Intestinal infection due to other organism, NEC 008.8 Active 36099051 Problem Need for prophylactic vaccination and inoculation, Influenza V04.81 Active 721979729 Problem Unspecified 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 Active 323216189 Problem Insomnia, unspecified 780.52 Active 960215204 Problem Lipoma of 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.0 Active 07756456 Problem 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 50359528 Problem Screening examination for venereal disease V74.5 Active 815615891 Problem Hip, thigh, leg, and ankle, abrasion or friction burn, infected 916.1 Active Problem Injury, other and unspecified, knee, leg, ankle, and foot 959.7 Active 246293462 Problem Sprain and strain of unspecified site of hand 842.10 Active 43788487 Problem Dehydration 276.51 Active 93719297 Problem Postnasal drip 784.91 Active 65675786 Problem Acute pharyngitis 462 Active 301091024 Problem Acute sinusitis, unspecified 461.9 Active 43777087 Problem Sebaceous cyst 706.2 Active 932949812 Assessment Other chronic pain G89.29 Jul, Active 83157242 Problem Pain in soft tissues of limb 729.5 Active 73653048 Problem Other accident caused by striking against or being struck accidentally by objects or persons E917.9 Active Problem Unspecified disorder of skin and subcutaneous tissue 709.9 Active 17752236 Problem Pain in joint, site unspecified 719.40 Active 05313335 Problem Allergy, unspecified not elsewhere classified 995.3 Active 015172800 Problem Esophageal reflux 530.81 Active 993129208 Problem Other convulsions 780.39 Active 82213618 ALLERGIES Substance Reaction Event Type Date Status Cephalexin rash Drug Allergy Jul, Active Aspirin dizziness Drug Allergy Jul, Active Amoxicillin Unknown Drug Allergy Jul, Active SOCIAL HISTORY No smoking Hx information available PLAN OF CARE VITAL SIGNS Height 74 in 2016-08-04 Weight 269 lbs 2016-08-04 Heart Rate 88 bpm 2016-08-04 Respiratory Rate 22 2016-08-04 BMI 34.53 kg/m2 2016-08-04 Blood pressure systolic 132 mmHg 2016-08-04 Blood pressure diastolic 88 mmHg 2016-08-04 MEDICATIONS Medication Instructions Dosage Frequency Start Date End Date Duration Status Xyzal 5 MG Orally Once a day 1 tablet in the evening 24h Active PredniSONE 20 mg Orally Once a day 1 tablet 24h Jul, Jul, 05 days Active RESULTS No Results PROCEDURES Procedure Date Ordered Related Diagnosis Body Site Office Visit, Est Pt., Level 3 Aug 04, 2016 IMMUNIZATIONS No Known Immunizations
--- OUTSIDE RECORDS SUMMARY | 2018-03-30 19:23 | XMS REPORT ---
Author Author ANTON MERINO [facility] eClinicalWorks Address Unknown Phone Unavailable Care Team Providers Care Forester Silviculture Name Role Phone ANTON MERINO CP Unavailable Allergies, Adverse Reactions, Alerts Substance Reaction Event Type Cephalexin rash Drug Allergy Aspirin dizziness Drug Allergy Amoxicillin Info Not Available Drug Allergy Problems Problem Type Condition ICD-9 Code Onset Dates Condition Status Assessment Sinusitis 473.9 Active Problem Sprain and strain of unspecified [...] Instructions Start Date End Date Status Dosage Flonase [facility] [address]-33 50 MCG/ACT Nasally 2 times a day for allergies Aug 07, 2015 1 spray in each nostril Doxycycline Hyclate [facility] [address]-57 100 MG Orally every 12 hrs Aug 07, 2015 Aug 17, 2015 1 capsule Xyzal [facility] [address]-31 5 MG Orally Once a day 1 tablet in the evening Depakote ER [facility] [address]-81 500 MG Orally 3 times a day 1 tablet PredniSONE [facility] [address]-13 40 mg Orally Once a day start 08/08/15JulAug 11, 2015 1 tablet with food or milk Procedures Procedure Coding System Code Date SOLUMEDROL (UP TO 125 MG) CPT-4 J2930 Aug 07, 2015 THER/PROPH/DIAG INJ, SC/IM CPT-4 94024 Aug 07, 2015 Office Visit, Est Pt., Level 3 CPT-4 01263 Aug 07, 2015 Vital Signs Date/Time: Aug 07, 2015 Temperature 97.6 F Weight 267.2 lbs Height 74 in BMI 34.30 Index Blood Pressure Diastolic 84 mmHg Blood Pressure Systolic 132 mmHg Cardiac Monitoring Heart Rate 76 bpm Results No Known Results Summary Purpose eClinicalWorks Submission
--- OUTSIDE RECORDS SUMMARY | 2018-03-30 19:23 | XMS REPORT ---
Author Author MARIN GORDON Organization [facility] Address [address] [place] [address] Care Team Providers Care Psychiatric Arnp Name Role Phone MARIN GORDON Unavailable PROBLEMS Type Condition ICD9-CM Code NRS05-VA Code Onset Dates Condition Status SNOMED Code Problem Other acne 706.1 Active 99541126 Assessment Acute maxillary sinusitis, recurrence not specified J01.00 Jul, Active 52506892 Problem Pain in thoracic spine 724.1 Active 633309081 Problem Sprain and strain of unspecified site of foot 845.10 Active 08842799 Problem Encounter for removal of sutures V58.32 Active 12270084 Problem Redness or discharge of eye 379.93 Active 03658875 Problem Personal history of other allergy, other than to medicinal agents V15.09 Active 325136941 Problem Other malaise and fatigue 780.79 Active 978548944 Problem Allergic rhinitis due to pollen 477.0 Active 74424950 Problem Allergic rhinitis, due to food 477.1 Active 481129670 Problem Acute tonsillitis 463 Active 25395663 Problem Intestinal infection due to other organism, NEC 008.8 Active 85680482 Problem Need for prophylactic vaccination and inoculation, Influenza V04.81 Active 392134637 Problem Unspecified 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 Active 627319135 Problem Insomnia, unspecified 780.52 Active 636368168 Problem Lipoma of 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.0 Active 20202323 Problem 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 93639281 Problem Screening examination for venereal disease V74.5 Active 008893824 Problem Hip, thigh, leg, and ankle, abrasion or friction burn, infected 916.1 Active Problem Injury, other and unspecified, knee, leg, ankle, and foot 959.7 Active 846616774 Problem Sprain and strain of unspecified site of hand 842.10 Active 19077946 Problem Dehydration 276.51 Active 45039327 Problem Postnasal drip 784.91 Active 59462734 Problem Acute pharyngitis 462 Active 478153371 Problem Acute sinusitis, unspecified 461.9 Active 54909793 Problem Sebaceous cyst 706.2 Active 988635050 Problem Pain in soft tissues of limb 729.5 Active 81067990 Problem Other accident caused by striking against or being struck accidentally by objects or persons E917.9 Active Problem Unspecified disorder of skin and subcutaneous tissue 709.9 Active 11145068 Problem Pain in joint, site unspecified 719.40 Active 79404084 Problem Allergy, unspecified not elsewhere classified 995.3 Active 487290881 Problem Esophageal reflux 530.81 Active 898603344 Problem Other convulsions 780.39 Active 91642982 ALLERGIES Substance Reaction Event Type Date Status Cephalexin rash Drug Allergy Jul, Active Aspirin dizziness Drug Allergy Jul, Active Amoxicillin Unknown Drug Allergy Jul, Active SOCIAL HISTORY No smoking Hx information available PLAN OF CARE VITAL SIGNS Height 74 in 2016-08-01 Weight 265.0 lbs 2016-08-01 Heart Rate 78 bpm 2016-08-01 Respiratory Rate 22 2016-08-01 BMI 34.02 kg/m2 2016-08-01 Blood pressure systolic 130 mmHg 2016-08-01 Blood pressure diastolic 86 mmHg 2016-08-01 MEDICATIONS Medication Instructions Dosage Frequency Start Date End Date Duration Status Xyzal 5 MG Orally Once a day 1 tablet in the evening 24h Active Azithromycin 250 MG Orally Once a day 2 tablets on the first day, then 1 tablet daily for 4 days 24h Jul, Jul, 5 day(s) Active Depakote ER 500 MG Orally 3 times a day 1 tablet 8h Active Naproxen Sodium Active RESULTS No Results PROCEDURES Procedure Date Ordered Related Diagnosis Body Site Office Visit, Est Pt., Level 3 Aug 01, 2016 SOLUMEDROL (UP TO 125 MG) Aug 01, 2016 THER/PROPH/DIAG INJ, SC/IM Aug 01, 2016 IMMUNIZATIONS Vaccine Route Administration Date Status SOLUMEDROL (UP TO 125 MG) IM Intramuscular Aug 01, 2016 Administered
--- OUTSIDE RECORDS SUMMARY | 2018-03-30 19:23 | XMS REPORT ---
Author Author BELLE GUERRA Organization [employer] Address Unknown Phone Unavailable Care Team Providers Care Building Cleaner Name Role Phone BELLE GUERRA CP Unavailable Allergies, Adverse Reactions, Alerts Substance Reaction Event Type Cephalexin rash Drug Allergy Aspirin dizziness Drug Allergy Amoxicillin Info Not Available Drug Allergy Problems Problem Type Condition Code Onset Dates Condition Status Assessment Malaise R53.81 Active Assessment Upper respiratory infection J06.9 Active Problem Sprain and strain of [...] skin and subcutaneous tissue 709.9 Active Assessment Pharyngitis J02.9 Active Problem Sebaceous cyst 706.2 Active Problem [...] Start Date End Date Status Dosage Flonase [facility] [address]-02 50 MCG/ACT Nasally 2 times a day for allergies Aug 07, 2015 1 spray in each nostril Xyzal [facility] [address]-71 5 MG Orally Once a day 1 tablet in the evening Azithromycin [facility] [address]-32 250 MG Orally Once a day Nov 27, 2015 Dec 02, 2015 2 tablets on the first day, then 1 tablet daily for 4 days Depakote ER [facility] [address]-20 500 MG Orally 3 times a day 1 tablet Procedures Procedure Coding System Code Date Office Visit, Est Pt., Level 3 CPT-4 30742 Nov 27, 2015 STREP A ASSAY W/OPTIC CPT-4 34943 Nov 27, 2015 INFLUENZA ASSAY W/OPTIC CPT-4 76909 Nov 27, 2015 CULTURE, BACTERIA, OTHER CPT-4 41137 Nov 27, 2015 Vital Signs Date/Time: Nov 27, 2015 Temperature 96.7 F Weight 268.6 lbs Height 74 in BMI 34.48 Index Blood Pressure Diastolic 86 mmHg Blood Pressure Systolic 132 mmHg Cardiac Monitoring Heart Rate 100 bpm Results Name Result Date Reference Range Unit Abnormality Flag INFLUENZA A & B (IN HOUSE) ----Exp date [id number] ----INFLUENZA A negative [id number] ----INFLUENZA B negative 20151127 ----Control + [id number] ----Lot # [id number] STREP A (IN HOUSE) ----Exp date [id number] ----Control + [id number] ----Lot # [id number] ----STREP A negative 20151127 Summary Purpose eClinicalWorks Submission
--- OUTSIDE RECORDS SUMMARY | 2018-03-30 19:23 | XMS REPORT ---
Author Author VICKI ASHRAF [facility] eClinicalWorks Address Unknown Phone Unavailable Care Team Providers Care Instructor Of Sociology Name Role Phone VICKI ASHRAF CP Unavailable Allergies, Adverse Reactions, Alerts Substance Reaction Event Type Cephalexin rash Drug Allergy Aspirin dizziness Drug Allergy Amoxicillin Info Not Available Drug Allergy Problems Problem Type Condition Code Onset Dates Condition Status Assessment Testicular pain N50.8 Active Problem Sprain and strain of unspecified [...] Instructions Start Date End Date Status Dosage EPINEPHrine [facility] [address]-23 0.3 MG/0.3ML Injection 1 time as needed 0.3 mg IM Naprosyn [facility] [address]-54 500 MG Orally every 12 hrs Oct 26, 2015Nov 1 tablet as needed Flonase [facility] [address]-61 50 MCG/ACT Nasally 2 times a day for allergies Aug 07, 2015 1 spray in each nostril Naproxen Sodium [facility] [address]-81 not defined Xyzal [facility] [address]-63 5 MG Orally Once a day 1 tablet in the evening Depakote ER [facility] [address]-67 500 MG Orally 3 times a day 1 tablet Procedures Procedure Coding System Code Date Office Visit, Est Pt., Level 3 CPT-4 43052 Oct 26, 2015 URINALYSIS, AUTO, W/O SCOPE CPT-4 40172 Oct 26, 2015 Vital Signs Date/Time: Oct 26, 2015 Temperature 97.3 F Weight 281.0 lbs Height 74 in BMI 36.07 Index Blood Pressure Diastolic 86 mmHg Blood Pressure Systolic 130 mmHg Cardiac Monitoring Heart Rate 64 bpm Results Name Result Date Reference Range Unit Abnormality Flag UA LONG DIP (IN HOUSE) ----CARMEN negative 20151026 ----NIT negative 20151026 ----Exp date 20151026 ----Lot # [id number] ----SG 1.015 20151026 ----KET negative 20151026 ----KIM negative 20151026 ----GLU negative 20151026 ----Odor none 20151026 ----pH 7.5 20151026 ----BLO negative 20151026 ----URO 0.2 20151026 ----Protein negative 20151026 ----Lot # [id number] [id number] ----Exp date 20151026 ----Clarity clear 20151026 ----Color yellow 20151026 Summary Purpose eClinicalWorks Submission
--- OUTSIDE RECORDS SUMMARY | 2018-03-30 19:23 | XMS REPORT ---
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
--- OUTSIDE RECORDS SUMMARY | 2018-03-30 19:25 | XMS REPORT | Continuity of Care Document ---
Author Author [facility] Address Unknown Phone Unavailable Allergies Active Description Code Type Severity Reaction Onset Reported/Identified Relationship to Patient Clinical Status Yes amoxicillin Drug Allergy N/A N/A 08/07/2011 Yes amoxicillin Drug Allergy 08/07/2011 Yes aspirin Drug Allergy 09/27/2012 Yes cephilasporians Drug Allergy 09/27/2012 Medications There is no data. 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 08/07/2011 THANIA WEBB MD.9 ALLERGIC RHINITIS 08/07/2011 JOCELYNN POE DO K 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 08/07/2011 POE JOCELYNN JIMENEZ K 477.9 ALLERGIC RHINITIS 08/07/2011 THANIA WEBB MD 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 08/07/2011 THANIA WEBB MD.9 ALLERGIC RHINITIS 08/07/2011 JOEL CHAN APRNINA R 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 08/07/2011 AMI CHAN APRN R 477.9 ALLERGIC RHINITIS 08/07/2011 THANIA WEBB MD 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 08/07/2011 THANIA WEBB MD.9 ALLERGIC RHINITIS 08/07/2011 ARMANI KEITH APRN 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 08/07/2011 ARMANI KEITH APRN 477.9 ALLERGIC RHINITIS 08/07/2011 ARMANI KEITH APRN 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 08/07/2011 ARMANI KEITH APRN 477.9 ALLERGIC RHINITIS 08/07/2011 THANIA WEBB MD 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 08/07/2011 THANIA WEBB MD.9 ALLERGIC RHINITIS 08/07/2011 THANIA WEBB MD 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 08/07/2011 THANIA WEBB MD.9 ALLERGIC RHINITIS 08/07/2011 ANTON MERINO APRN R 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 08/07/2011 ANTON MERINO APRN 477.9 ALLERGIC RHINITIS 08/07/2011 JOCELYNN POE DO K 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 08/07/2011 ROMÁN POE DOA K 477.9 ALLERGIC RHINITIS 08/07/2011 JOCELYNN POE DO K 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 08/07/2011 JOCELYNN POE DO K 477.9 ALLERGIC RHINITIS 08/07/2011 ARMANI KEITH APRN 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 08/07/2011 ARMANI KEITH APRN 477.9 ALLERGIC RHINITIS 08/07/2011 JOCELYNN POE DO 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 08/07/2011 JOCELYNN POE DO 477.9 ALLERGIC RHINITIS 08/07/2011 THANIA WEBB MD 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 08/07/2011 THANIA EWBB MD 477.9 ALLERGIC RHINITIS 10/07/2011 THANIA WEBB MD 461.9 SINUSITIS ACUTE 10/07/2011 THANIA WEBB MD 466.0 BRONCHITIS, ACUTE 10/07/2011 THANIA WEBB MD 461.9 SINUSITIS ACUTE 10/07/2011 THANIA WEBB MD 466.0 BRONCHITIS, ACUTE 10/07/2011 THANIA WEBB MD 461.9 SINUSITIS ACUTE 10/07/2011 THANIA WEBB MD 466.0 BRONCHITIS, ACUTE 10/07/2011 461.9 SINUSITIS ACUTE 10/07/2011 466.0 BRONCHITIS, ACUTE 10/07/2011 461.9 SINUSITIS ACUTE 10/07/2011 466.0 BRONCHITIS, ACUTE 10/07/2011 461.9 SINUSITIS ACUTE 10/07/2011 466.0 BRONCHITIS, ACUTE 10/07/2011 461.9 SINUSITIS ACUTE 10/07/2011 466.0 BRONCHITIS, ACUTE 10/07/2011 461.9 SINUSITIS ACUTE 10/07/2011 466.0 BRONCHITIS, ACUTE 10/07/2011 JOCELYNN POE DO K 461.9 SINUSITIS ACUTE 10/07/2011 JOCELYNN POE DO K 466.0 BRONCHITIS, ACUTE 10/07/2011 ROMÁN POE DOA K 461.9 SINUSITIS ACUTE 10/07/2011 ROMÁN POE DOA K 466.0 BRONCHITIS, ACUTE 10/07/2011 THANIA WEBB MD 461.9 SINUSITIS ACUTE 10/07/2011 THANIA WEBB MD 466.0 BRONCHITIS, ACUTE 10/07/2011 JOCELYNN POE DO K 461.9 SINUSITIS ACUTE 10/07/2011 JOCELYNN POE DO K 466.0 BRONCHITIS, ACUTE 10/07/2011 THANIA WEBB MD 461.9 SINUSITIS ACUTE 10/07/2011 THANIA WEBB MD 466.0 BRONCHITIS, ACUTE 10/07/2011 DUSTIN CHAHALN, AMI R 461.9 SINUSITIS ACUTE 10/07/2011 DUSTIN HAWKINS, AMI R 466.0 BRONCHITIS, ACUTE 10/07/2011 JON GÓMEZ, THANIA 461.9 SINUSITIS ACUTE 10/07/2011 THANIA WEBB MD 466.0 BRONCHITIS, ACUTE 10/07/2011 ARMANI KEITH APRN 461.9 SINUSITIS ACUTE 10/07/2011 ARMANI KEITH APRN T 466.0 BRONCHITIS, ACUTE 10/07/2011 ARMANI KEITH APRN T 461.9 SINUSITIS ACUTE 10/07/2011 ARMANI KEITH APRN T 466.0 BRONCHITIS, ACUTE 10/07/2011 THANIA WEBB MD 461.9 SINUSITIS ACUTE 10/07/2011 THANIA WEBB MD 466.0 BRONCHITIS, ACUTE 10/07/2011 THANIA WEBB MD 461.9 SINUSITIS ACUTE 10/07/2011 THANIA WEBB MD 466.0 BRONCHITIS, ACUTE 10/07/2011 WILBER HAWKINS ANTON R 461.9 SINUSITIS ACUTE 10/07/2011 WILBER HAWKINS ANTON R 466.0 BRONCHITIS, ACUTE 10/07/2011 POE DO, JOCELYNN K 461.9 SINUSITIS ACUTE 10/07/2011 POE DO, JOCELYNN K 466.0 BRONCHITIS, ACUTE 10/07/2011 POE DO, JOCELYNN K 461.9 SINUSITIS ACUTE 10/07/2011 POE DO, JOCELYNN K 466.0 BRONCHITIS, ACUTE 10/07/2011 ARMANI KEITH APRN T 461.9 SINUSITIS ACUTE 10/07/2011 ARMANI KEITH APRN T 466.0 BRONCHITIS, ACUTE 10/07/2011 POE DO, JOCELYNN K 461.9 SINUSITIS ACUTE 10/07/2011 POE , JOCELYNN K 466.0 BRONCHITIS, ACUTE 10/07/2011 THANIA WEBB MD 461.9 SINUSITIS ACUTE 10/07/2011 THANIA WEBB MD 466.0 BRONCHITIS, ACUTE 10/20/2011 THANIA WEBB MD 462 sore throat 10/20/2011 THANIA WEBB MD 462 sore throat 10/20/2011 THANIA WEBB MD 462 sore throat 10/20/2011 462 sore throat 10/20/2011 462 sore throat 10/20/2011 462 sore throat 10/20/2011 462 sore throat 10/20/2011 462 sore throat 10/20/2011 POE DO, JOCELYNN K 462 sore throat 10/20/2011 POE DO, JOCELYNN K 462 sore throat 10/20/2011 THANIA WEBB MD 462 SORE THROAT 10/20/2011 POE , JOCELYNN K 462 sore throat 10/20/2011 THANIA WEBB MD 462 SORE THROAT 10/20/2011 AMI CHAN APRN R 462 SORE THROAT 10/20/2011 THANIA WEBB MD 462 SORE THROAT 10/20/2011 ARMANI KEITH APRN 462 SORE THROAT 10/20/2011 ARMANI KEITH APRN 462 SORE THROAT 10/20/2011 THANIA WEBB MD 462 SORE THROAT 10/20/2011 THANIA WEBB MD 462 SORE THROAT 10/20/2011 ANTON MERINO APRN R 462 SORE THROAT 10/20/2011 POE DO, JOCELYNN K 462 SORE THROAT 10/20/2011 POE DO, JOCELYNN K 462 SORE THROAT 10/20/2011 ARMANI KEITH APRN 462 SORE THROAT 10/20/2011 POE DO, JOCELYNN K 462 SORE THROAT 10/20/2011 THANIA WEBB MD 462 sore throat 04/20/2012 THANIA WEBB MD 706.1 ACNE 04/20/2012 THANIA WEBB MD 706.1 ACNE 04/20/2012 THANIA WEBB MD 706.1 ACNE 04/20/2012 706.1 ACNE 04/20/2012 706.1 ACNE 04/20/2012 706.1 ACNE 04/20/2012 706.1 ACNE 04/20/2012 706.1 ACNE 04/20/2012 JOCELYNN POE DO 706.1 ACNE 04/20/2012 POE DO JOCELYNN K 706.1 ACNE 04/20/2012 THANIA WEBB MD 706.1 ACNE 04/20/2012 POE JOCELYNN JIMENEZ 706.1 ACNE 04/20/2012 JON GÓMEZ, THANIA 706.1 ACNE 04/20/2012 DUSTIN CRAFT COORDINATOR, AMI R 706.1 ACNE 04/20/2012 JON GÓMEZ, THANIA 706.1 ACNE 04/20/2012 SAGAR HAWKINS, ARMANI Doss 706.1 ACNE 04/20/2012 SAGAR HAWKINS, ARMANI Doss 706.1 ACNE 04/20/2012 THANIA WEBB MD 706.1 ACNE 04/20/2012 JON GÓMEZ, THANIA 706.1 ACNE 04/20/2012 WILBER CRAFT COORDINATOR, ANTON R 706.1 ACNE 04/20/2012 POE , JOCELYNN [place] 706.1 ACNE 04/20/2012 JOCELYNN POE DO 706.1 ACNE 04/20/2012 ARMANI KEITH APRN 706.1 ACNE 04/20/2012 POE JOCELYNN JIMENEZ 706.1 ACNE 04/20/2012 THANIA WEBB MD 706.1 ACNE 04/30/2012 THANIA WEBB MD 276.51 DEHYDRATION 04/30/2012 THANIA WEBB MD 784.91 POSTNASAL DRIP 04/30/2012 THANIA WEBB MD 276.51 DEHYDRATION 04/30/2012 THANIA WEBB MD 784.91 POSTNASAL DRIP 04/30/2012 THANIA WEBB MD 276.51 DEHYDRATION 04/30/2012 THANIA WEBB MD 784.91 POSTNASAL DRIP 04/30/2012 276.51 DEHYDRATION 04/30/2012 784.91 POSTNASAL DRIP 04/30/2012 276.51 DEHYDRATION 04/30/2012 784.91 POSTNASAL DRIP 04/30/2012 276.51 DEHYDRATION 04/30/2012 784.91 POSTNASAL DRIP 04/30/2012 276.51 DEHYDRATION 04/30/2012 784.91 POSTNASAL DRIP 04/30/2012 276.51 DEHYDRATION 04/30/2012 784.91 POSTNASAL DRIP 04/30/2012 JOCELYNN POE DO 276.51 DEHYDRATION 04/30/2012 JOCELYNN POE DO 784.91 POSTNASAL DRIP 04/30/2012 JOCELYNN POE DO 276.51 DEHYDRATION 04/30/2012 JOCELYNN POE DO 784.91 POSTNASAL DRIP 04/30/2012 THANIA WEBB MD 276.51 DEHYDRATION 04/30/2012 THANIA WEBB MD 784.91 POSTNASAL DRIP 04/30/2012 POE DO, JOCELYNN K 276.51 DEHYDRATION 04/30/2012 POE DO, JOCELYNN K 784.91 POSTNASAL DRIP 04/30/2012 THANIA WEBB MD 276.51 DEHYDRATION 04/30/2012 THANIA WEBB MD 784.91 POSTNASAL DRIP 04/30/2012 DUSTIN HAWKINS AMI R 276.51 DEHYDRATION 04/30/2012 DUSTIN HAWKINS AMI R 784.91 POSTNASAL DRIP 04/30/2012 THANIA WEBB MD 276.51 DEHYDRATION 04/30/2012 THANIA WEBB MD 784.91 POSTNASAL DRIP 04/30/2012 ARMANI KEITH APRN 276.51 DEHYDRATION 04/30/2012 ARMANI KEITH APRN 784.91 POSTNASAL DRIP 04/30/2012 ARMANI KEITH APRN 276.51 DEHYDRATION 04/30/2012 ARMANI KEITH APRN 784.91 POSTNASAL DRIP 04/30/2012 THANIA WEBB MD 276.51 DEHYDRATION 04/30/2012 THANIA WEBB MD 784.91 POSTNASAL DRIP 04/30/2012 THANIA WEBB MD 276.51 DEHYDRATION 04/30/2012 THANIA WEBB MD 784.91 POSTNASAL DRIP 04/30/2012 ANTON MERINO APRN R 276.51 DEHYDRATION 04/30/2012 GRAZYNA MERINO APRNIA R 784.91 POSTNASAL DRIP 04/30/2012 POE DO, JOCELYNN K 276.51 DEHYDRATION 04/30/2012 POE DO, JOCELYNN K 784.91 POSTNASAL DRIP 04/30/2012 POE DO, JOCELYNN K 276.51 DEHYDRATION 04/30/2012 POE DO, JOCELYNN K 784.91 POSTNASAL DRIP 04/30/2012 ARMANI KEITH APRN 276.51 DEHYDRATION 04/30/2012 ARMANI KEITH APRN 784.91 POSTNASAL DRIP 04/30/2012 POE DO, JOCELYNN K 276.51 DEHYDRATION 04/30/2012 POE DO, JOCELYNN K 784.91 POSTNASAL DRIP 04/30/2012 THANIA WEBB MD 276.51 DEHYDRATION 04/30/2012 THANIA WEBB MD 784.91 POSTNASAL DRIP 05/31/2012 THANIA WEBB MD 780.52 INSOMNIA UNSPECIFIED 05/31/2012 THANIA WEBB MD 780.52 INSOMNIA UNSPECIFIED 05/31/2012 THANIA WEBB MD 780.52 INSOMNIA UNSPECIFIED 05/31/2012 780.52 INSOMNIA UNSPECIFIED 05/31/2012 780.52 INSOMNIA UNSPECIFIED 05/31/2012 780.52 INSOMNIA UNSPECIFIED 05/31/2012 780.52 INSOMNIA UNSPECIFIED 05/31/2012 780.52 INSOMNIA UNSPECIFIED 05/31/2012 POE DO, JOCELYNN K 780.52 INSOMNIA UNSPECIFIED 05/31/2012 POE DO, JOCELYNN K 780.52 INSOMNIA UNSPECIFIED 05/31/2012 THANIA WEBB MD 780.52 INSOMNIA UNSPECIFIED 05/31/2012 POE DO JOCELYNN K 780.52 INSOMNIA UNSPECIFIED 05/31/2012 THANIA WEBB MD 780.52 INSOMNIA UNSPECIFIED 05/31/2012 AMI CHAN APRN 780.52 INSOMNIA UNSPECIFIED 05/31/2012 THANIA WEBB MD 780.52 INSOMNIA UNSPECIFIED 05/31/2012 ARMANI KEITH APRN 780.52 INSOMNIA UNSPECIFIED 05/31/2012 ARMANI KEITH APRN 780.52 INSOMNIA UNSPECIFIED 05/31/2012 THANIA WEBB MD 780.52 INSOMNIA UNSPECIFIED 05/31/2012 THANIA WEBB MD 780.52 INSOMNIA UNSPECIFIED 05/31/2012 ANTON MERINO APRN 780.52 INSOMNIA UNSPECIFIED 05/31/2012 POE DO JOCELYNN K 780.52 INSOMNIA UNSPECIFIED 05/31/2012 POE DO JCOELYNN K 780.52 INSOMNIA UNSPECIFIED 05/31/2012 ARMANI KEITH APRN 780.52 INSOMNIA UNSPECIFIED 05/31/2012 POE DO, JOCELYNN K 780.52 INSOMNIA UNSPECIFIED 05/31/2012 THANIA WEBB MD 780.52 INSOMNIA UNSPECIFIED 06/18/2012 THANIA WEBB MD 724.1 PAIN IN THORACIC SPINE 06/18/2012 THANIA WEBB MD 724.1 PAIN IN THORACIC SPINE 06/18/2012 THANIA WEBB MD 724.1 PAIN IN THORACIC SPINE 06/18/2012 724.1 PAIN IN THORACIC SPINE 06/18/2012 724.1 PAIN IN THORACIC SPINE 06/18/2012 724.1 PAIN IN THORACIC SPINE 06/18/2012 724.1 PAIN IN THORACIC SPINE 06/18/2012 724.1 PAIN IN THORACIC SPINE 06/18/2012 JOCELYNN POE DO K 724.1 PAIN IN THORACIC SPINE 06/18/2012 POE ROMÁN JIMENEZA K 724.1 PAIN IN THORACIC SPINE 06/18/2012 THANIA WEBB MD 724.1 PAIN IN THORACIC SPINE 06/18/2012 JOCELYNN POE DO K 724.1 PAIN IN THORACIC SPINE 06/18/2012 THANIA WEBB MD 724.1 PAIN IN THORACIC SPINE 06/18/2012 AMI CHAN APRN R 724.1 PAIN IN THORACIC SPINE 06/18/2012 THANIA WEBB MD 724.1 PAIN IN THORACIC SPINE 06/18/2012 ARMANI KEITH APRN 724.1 PAIN IN THORACIC SPINE 06/18/2012 ARMANI KEITH APRN 724.1 PAIN IN THORACIC SPINE 06/18/2012 THANIA WEBB MD 724.1 PAIN IN THORACIC SPINE 06/18/2012 THANIA WEBB MD 724.1 PAIN IN THORACIC SPINE 06/18/2012 ANTON MERINO APRN R 724.1 PAIN IN THORACIC SPINE 06/18/2012 POE ROMÁN JIMENEZA K 724.1 PAIN IN THORACIC SPINE 06/18/2012 JOCELYNN POE DO K 724.1 PAIN IN THORACIC SPINE 06/18/2012 ARMANI KEITH APRN 724.1 PAIN IN THORACIC SPINE 06/18/2012 JOCELYNN POE DO K 724.1 PAIN IN THORACIC SPINE 06/18/2012 THANIA WEBB MD 724.1 PAIN IN THORACIC SPINE 07/13/2012 THANIA WEBB MD 842.10 SPRAIN/STRAIN HAND 07/13/2012 THANIA WEBB MD 842.10 SPRAIN/STRAIN HAND 07/13/2012 THANIA WEBB MD 842.10 SPRAIN/STRAIN HAND 07/13/2012 842.10 SPRAIN/ STRAIN HAND 07/13/2012 842.10 SPRAIN/ STRAIN HAND 07/13/2012 842.10 SPRAIN/ STRAIN HAND 07/13/2012 842.10 SPRAIN/ STRAIN HAND 07/13/2012 842.10 SPRAIN/ STRAIN HAND 07/13/2012 JOCELYNN POE DO 842.10 SPRAIN/STRAIN HAND 07/13/2012 JOCELYNN POE DO 842.10 SPRAIN/STRAIN HAND 07/13/2012 THANIA WEBB MD 842.10 SPRAIN/STRAIN HAND 07/13/2012 JOCELYNN POE DO 842.10 SPRAIN/STRAIN HAND 07/13/2012 THANIA WEBB MD 842.10 SPRAIN/STRAIN HAND 07/13/2012 AMI CHAN APRN R 842.10 SPRAIN/STRAIN HAND 07/13/2012 THANIA WEBB MD 842.10 SPRAIN/STRAIN HAND 07/13/2012 ARMANI KEITH APRN 842.10 SPRAIN/STRAIN HAND 07/13/2012 ARMANI KEITH APRN 842.10 SPRAIN/STRAIN HAND 07/13/2012 THANIA WEBB MD 842.10 SPRAIN/STRAIN HAND 07/13/2012 THANIA WEBB MD 842.10 SPRAIN/STRAIN HAND 07/13/2012 ANTON MERINO APRN 842.10 SPRAIN/STRAIN HAND 07/13/2012 JOCELYNN POE DO 842.10 SPRAIN/STRAIN HAND 07/13/2012 JOCELYNN POE DO 842.10 SPRAIN/STRAIN HAND 07/13/2012 ARMANI KEITH APRN 842.10 SPRAIN/STRAIN HAND 07/13/2012 JOCELYNN POE DO 842.10 SPRAIN/STRAIN HAND 07/13/2012 THANIA WEBB MD 842.10 SPRAIN/STRAIN HAND 07/21/2012 THANIA WEBB MD 845.10 SPRAIN/STRAIN FOOT 07/21/2012 THANIA WEBB MD 845.10 SPRAIN/STRAIN FOOT 07/21/2012 THANIA WEBB MD 845.10 SPRAIN/STRAIN FOOT 07/21/2012 845.10 SPRAIN/ STRAIN FOOT 07/21/2012 845.10 SPRAIN/ STRAIN FOOT 07/21/2012 845.10 SPRAIN/ STRAIN FOOT 07/21/2012 845.10 SPRAIN/ STRAIN FOOT 07/21/2012 845.10 SPRAIN/ STRAIN FOOT 07/21/2012 JOCELYNN POE DO 845.10 SPRAIN/STRAIN FOOT 07/21/2012 JOCELYNN POE DO 845.10 SPRAIN/STRAIN FOOT 07/21/2012 THANIA WEBB MD 845.10 SPRAIN/STRAIN FOOT 07/21/2012 POE DO, JOCELYNN [place] 845.10 SPRAIN/STRAIN FOOT 07/21/2012 THANIA WEBB MD 845.10 SPRAIN/STRAIN FOOT 07/21/2012 AMI CHAN APRN R 845.10 SPRAIN/STRAIN FOOT 07/21/2012 THANIA WEBB MD 845.10 SPRAIN/STRAIN FOOT 07/21/2012 ARMANI KEITH APRN 845.10 SPRAIN/STRAIN FOOT 07/21/2012 ARMANI KEITH APRN 845.10 SPRAIN/STRAIN FOOT 07/21/2012 THANIA WEBB MD 845.10 SPRAIN/STRAIN FOOT 07/21/2012 THANIA WEBB MD 845.10 SPRAIN/STRAIN FOOT 07/21/2012 ANTON MERINO APRN 845.10 SPRAIN/STRAIN FOOT 07/21/2012 POE DO, JOCELYNN [place] 845.10 SPRAIN/STRAIN FOOT 07/21/2012 POE DO, JOCELYNN [place] 845.10 SPRAIN/STRAIN FOOT 07/21/2012 ARMANI KEITH APRN 845.10 SPRAIN/STRAIN FOOT 07/21/2012 POE DO, JOCELYNN [place] 845.10 SPRAIN/STRAIN FOOT 07/21/2012 THANIA WEBB MD 845.10 SPRAIN/STRAIN FOOT 08/16/2012 THANIA WEBB MD 477.0 ALLERGIC RHINITIS DUE TO POLLEN 08/16/2012 THANIA WEBB MD 477.0 ALLERGIC RHINITIS DUE TO POLLEN 08/16/2012 THANIA WEBB MD 477.0 ALLERGIC RHINITIS DUE TO POLLEN 08/16/2012 477.0 ALLERGIC RHINITIS DUE TO POLLEN 08/16/2012 477.0 ALLERGIC RHINITIS DUE TO POLLEN 08/16/2012 477.0 ALLERGIC RHINITIS DUE TO POLLEN 08/16/2012 477.0 ALLERGIC RHINITIS DUE TO POLLEN 08/16/2012 477.0 ALLERGIC RHINITIS DUE TO POLLEN 08/16/2012 JOCELYNN POE DO 477.0 ALLERGIC RHINITIS DUE TO POLLEN 08/16/2012 JOCELYNN POE DO 477.0 ALLERGIC RHINITIS DUE TO POLLEN 08/16/2012 THANIA WEBB MD 477.0 ALLERGIC RHINITIS DUE TO POLLEN 08/16/2012 POE DO, JOCELYNN K 477.0 ALLERGIC RHINITIS DUE TO POLLEN 08/16/2012 JON GÓMEZ, THANIA 477.0 ALLERGIC RHINITIS DUE TO POLLEN 08/16/2012 AMI CHAN APRN 477.0 ALLERGIC RHINITIS DUE TO POLLEN 08/16/2012 JON GÓMEZ, THANIA 477.0 ALLERGIC RHINITIS DUE TO POLLEN 08/16/2012 ARMANI KEITH APRN 477.0 ALLERGIC RHINITIS DUE TO POLLEN 08/16/2012 ARMANI KEITH APRN 477.0 ALLERGIC RHINITIS DUE TO POLLEN 08/16/2012 THANIA WEBB MD 477.0 ALLERGIC RHINITIS DUE TO POLLEN 08/16/2012 JON GÓMEZ, THANIA 477.0 ALLERGIC RHINITIS DUE TO POLLEN 08/16/2012 ANTON MERINO APRN 477.0 ALLERGIC RHINITIS DUE TO POLLEN 08/16/2012 POE DO, JOCELYNN K 477.0 ALLERGIC RHINITIS DUE TO POLLEN 08/16/2012 POE DO, JOCELYNN K 477.0 ALLERGIC RHINITIS DUE TO POLLEN 08/16/2012 ARMANI KEITH APRN 477.0 ALLERGIC RHINITIS DUE TO POLLEN 08/16/2012 POE DO, JOCELYNN K 477.0 ALLERGIC RHINITIS DUE TO POLLEN 08/16/2012 JON GÓMEZ, THANIA 477.0 ALLERGIC RHINITIS DUE TO POLLEN 09/07/2012 THANIA WEBB MD 530.81 GERD 09/07/2012 THANIA WEBB MD 530.81 GERD 09/07/2012 THANIA WEBB MD 530.81 GERD 09/07/2012 530.81 GERD 09/07/2012 530.81 GERD 09/07/2012 530.81 GERD 09/07/2012 530.81 GERD 09/07/2012 530.81 GERD 09/07/2012 POE DO, JOCLEYNN K 530.81 GERD 09/07/2012 POE DO, OJCELYNN K 530.81 GERD 09/07/2012 THANIA WEBB MD 530.81 GERD 09/07/2012 POE DO, JOCELYNN K 530.81 GERD 09/07/2012 THANIA WEBB MD 530.81 GERD 09/07/2012 AMI CHAN APRN R 530.81 GERD 09/07/2012 THANIA WEBB MD 530.81 GERD 09/07/2012 ARMANI KEITH APRN 530.81 GERD 09/07/2012 ARMANI KEITH APRN 530.81 GERD 09/07/2012 THANIA WEBB MD 530.81 GERD 09/07/2012 THANIA WEBB MD 530.81 GERD 09/07/2012 ANTON MERINO APRN 530.81 GERD 09/07/2012 JOCELYNN POE DO K 530.81 GERD 09/07/2012 DEEPIKA JIMENEZ, JOCELYNN K 530.81 GERD 09/07/2012 ARMANI KEITH APRN 530.81 GERD 09/07/2012 DEEPIKA JIMENEZ, JOCELYNN K 530.81 GERD 09/07/2012 THANIA WEBB MD 530.81 GERD 09/14/2012 THANIA WEBB MD V04.81 FLU DX (3 YRS AND ABOVE, IM) 09/14/2012 THANIA WEBB MD V04.81 FLU DX (3 YRS AND ABOVE, IM) 09/14/2012 THANIA WEBB MD V04.81 FLU DX (3 YRS AND ABOVE, IM) 09/14/2012 V04.81 FLU DX (3 YRS AND ABOVE, IM) 09/14/2012 V04.81 FLU DX (3 YRS AND ABOVE, IM) 09/14/2012 V04.81 FLU DX (3 YRS AND ABOVE, IM) 09/14/2012 V04.81 FLU DX (3 YRS AND ABOVE, IM) 09/14/2012 V04.81 FLU DX (3 YRS AND ABOVE, IM) 09/14/2012 JOCELYNN POE DO K V04.81 FLU DX (3 YRS AND ABOVE, IM) 09/14/2012 JOCELYNN POE DO K V04.81 FLU DX (3 YRS AND ABOVE, IM) 09/14/2012 THANIA WEBB MD V04.81 FLU DX (3 YRS AND ABOVE, IM) 09/14/2012 JOCELYNN POE DO V04.81 FLU DX (3 YRS AND ABOVE, IM) 09/14/2012 THANIA WEBB MD V04.81 FLU DX (3 YRS AND ABOVE, IM) 09/14/2012 AMI CHAN APRN V04.81 FLU DX (3 YRS AND ABOVE, IM) 09/14/2012 THANIA WEBB MD V04.81 FLU DX (3 YRS AND ABOVE, IM) 09/14/2012 ARMANI KEITH APRN V04.81 FLU DX (3 YRS AND ABOVE, IM) 09/14/2012 ARMANI KEITH APRN V04.81 FLU DX (3 YRS AND ABOVE, IM) 09/14/2012 THANIA WEBB MD V04.81 FLU DX (3 YRS AND ABOVE, IM) 09/14/2012 THANIA WEBB MD V04.81 FLU DX (3 YRS AND ABOVE, IM) 09/14/2012 WILBER HAWKINS, ANTON Pope V04.81 FLU DX (3 YRS AND ABOVE, IM) 09/14/2012 POE DOROMÁNA K V04.81 FLU DX (3 YRS AND ABOVE, IM) 09/14/2012 POE DO, JOCELYNN K V04.81 FLU DX (3 YRS AND ABOVE, IM) 09/14/2012 SAGAR HAWKINS, ARMANI Doss V04.81 FLU DX (3 YRS AND ABOVE, IM) 09/14/2012 JOCELYNN POE DO K V04.81 FLU DX (3 YRS AND ABOVE, IM) 09/14/2012 THANIA WEBB MD V04.81 FLU DX (3 YRS AND ABOVE, IM) 09/16/2012 THANIA WEBB MD 780.79 fatigue 09/16/2012 THANIA WEBB MD V15.09 PERSONAL HISTORY OF OTHER ALLERGY OTHER THAN TO MEDICINAL AGENTS 09/16/2012 THANIA WEBB MD 780.79 fatigue 09/16/2012 THANIA WEBB MD V15.09 PERSONAL HISTORY OF OTHER ALLERGY OTHER THAN TO MEDICINAL AGENTS 09/16/2012 THANIA WEBB MD 780.79 fatigue 09/16/2012 THANIA WEBB MD V15.09 PERSONAL HISTORY OF OTHER ALLERGY OTHER THAN TO MEDICINAL AGENTS 09/16/2012 780.79 fatigue 09/16/2012 V15.09 PERSONAL HISTORY OF OTHER ALLERGY OTHER THAN TO MEDICINAL AGENTS 09/16/2012 780.79 fatigue 09/16/2012 V15.09 PERSONAL HISTORY OF OTHER ALLERGY OTHER THAN TO MEDICINAL AGENTS 09/16/2012 780.79 fatigue 09/16/2012 V15.09 PERSONAL HISTORY OF OTHER ALLERGY OTHER THAN TO MEDICINAL AGENTS 09/16/2012 780.79 fatigue 09/16/2012 V15.09 PERSONAL HISTORY OF OTHER ALLERGY OTHER THAN TO MEDICINAL AGENTS 09/16/2012 780.79 fatigue 09/16/2012 V15.09 PERSONAL HISTORY OF OTHER ALLERGY OTHER THAN TO MEDICINAL AGENTS 09/16/2012 JOCELYNN POE DO K 780.79 fatigue 09/16/2012 JOCELYNN POE DO K V15.09 PERSONAL HISTORY OF OTHER ALLERGY OTHER THAN TO MEDICINAL AGENTS 09/16/2012 JOCELYNN POE DO 780.79 fatigue 09/16/2012 JOCELYNN POE DO K V15.09 PERSONAL HISTORY OF OTHER ALLERGY OTHER THAN TO MEDICINAL AGENTS 09/16/2012 THANIA WEBB MD 780.79 FATIGUE 09/16/2012 THANIA WEBB MD V15.09 PERSONAL HISTORY OF OTHER ALLERGY OTHER THAN TO MEDICINAL AGENTS 09/16/2012 JOCELYNN POE DO 780.79 fatigue 09/16/2012 JOCELYNN POE DO K V15.09 PERSONAL HISTORY OF OTHER ALLERGY OTHER THAN TO MEDICINAL AGENTS 09/16/2012 THANIA WEBB MD 780.79 FATIGUE 09/16/2012 THANIA WEBB MD V15.09 PERSONAL HISTORY OF OTHER ALLERGY OTHER THAN TO MEDICINAL AGENTS 09/16/2012 AMI CHAN APRN 780.79 FATIGUE 09/16/2012 AMI CHAN APRN V15.09 PERSONAL HISTORY OF OTHER ALLERGY OTHER THAN TO MEDICINAL AGENTS 09/16/2012 THANIA WEBB MD 780.79 FATIGUE 09/16/2012 THANIA WEBB MD V15.09 PERSONAL HISTORY OF OTHER ALLERGY OTHER THAN TO MEDICINAL AGENTS 09/16/2012 ARMANI KEITH APRN 780.79 FATIGUE 09/16/2012 ARMANI KEITH APRN V15.09 PERSONAL HISTORY OF OTHER ALLERGY OTHER THAN TO MEDICINAL AGENTS 09/16/2012 ARMANI KEITH APRN 780.79 FATIGUE 09/16/2012 ARMANI KEITH APRN V15.09 PERSONAL HISTORY OF OTHER ALLERGY OTHER THAN TO MEDICINAL AGENTS 09/16/2012 THANIA WEBB MD 780.79 FATIGUE 09/16/2012 THANIA WEBB MD V15.09 PERSONAL HISTORY OF OTHER ALLERGY OTHER THAN TO MEDICINAL AGENTS 09/16/2012 THANIA WEBB MD 780.79 FATIGUE 09/16/2012 THANIA WEBB MD V15.09 PERSONAL HISTORY OF OTHER ALLERGY OTHER THAN TO MEDICINAL AGENTS 09/16/2012 ANTON MERINO APRN 780.79 FATIGUE 09/16/2012 ANTON MERINO APRN V15.09 PERSONAL HISTORY OF OTHER ALLERGY OTHER THAN TO MEDICINAL AGENTS 09/16/2012 JOCELYNN POE DO 780.79 FATIGUE 09/16/2012 JOCELYNN POE DO V15.09 PERSONAL HISTORY OF OTHER ALLERGY OTHER THAN TO MEDICINAL AGENTS 09/16/2012 JOCELYNN POE DO K 780.79 FATIGUE 09/16/2012 POE DO JOCELYNN K V15.09 PERSONAL HISTORY OF OTHER ALLERGY OTHER THAN TO MEDICINAL AGENTS 09/16/2012 ARMANI KEITH APRN 780.79 FATIGUE 09/16/2012 ARMANI KEITH APRN V15.09 PERSONAL HISTORY OF OTHER ALLERGY OTHER THAN TO MEDICINAL AGENTS 09/16/2012 JOCELYNN POE DO K 780.79 FATIGUE 09/16/2012 ROMÁN POE DOA K V15.09 PERSONAL HISTORY OF OTHER ALLERGY OTHER THAN TO MEDICINAL AGENTS 09/16/2012 THANIA WEBB MD 780.79 fatigue 09/16/2012 THANIA WEBB MD V15.09 PERSONAL HISTORY OF OTHER ALLERGY OTHER THAN TO MEDICINAL AGENTS 09/17/2012 THANIA WEBB MD 379.93 REDNESS OR DISCHARGE OF EYE 09/17/2012 THANIA WEBB MD 379.93 REDNESS OR DISCHARGE OF EYE 09/17/2012 THANIA WEBB MD 379.93 REDNESS OR DISCHARGE OF EYE 09/17/2012 379.93 REDNESS OR DISCHARGE OF EYE 09/17/2012 379.93 REDNESS OR DISCHARGE OF EYE 09/17/2012 379.93 REDNESS OR DISCHARGE OF EYE 09/17/2012 379.93 REDNESS OR DISCHARGE OF EYE 09/17/2012 379.93 REDNESS OR DISCHARGE OF EYE 09/17/2012 JOCELYNN POE DO K 379.93 REDNESS OR DISCHARGE OF EYE 09/17/2012 ROMÁN POE DOA K 379.93 REDNESS OR DISCHARGE OF EYE 09/17/2012 THANIA WEBB MD 379.93 REDNESS OR DISCHARGE OF EYE 09/17/2012 JOCELYNN POE DO 379.93 REDNESS OR DISCHARGE OF EYE 09/17/2012 THANIA WEBB MD 379.93 REDNESS OR DISCHARGE OF EYE 09/17/2012 AMI CHAN APRN 379.93 REDNESS OR DISCHARGE OF EYE 09/17/2012 THANIA WEBB MD 379.93 REDNESS OR DISCHARGE OF EYE 09/17/2012 ARMANI KEITH APRN 379.93 REDNESS OR DISCHARGE OF EYE 09/17/2012 ARMANI KEITH APRN 379.93 REDNESS OR DISCHARGE OF EYE 09/17/2012 THANIA WEBB MD 379.93 REDNESS OR DISCHARGE OF EYE 09/17/2012 THANIA WEBB MD 379.93 REDNESS OR DISCHARGE OF EYE 09/17/2012 ANTON MERINO APRN 379.93 REDNESS OR DISCHARGE OF EYE 09/17/2012 JOCELYNN POE DO K 379.93 REDNESS OR DISCHARGE OF EYE 09/17/2012 ROMÁN POE DOA K 379.93 REDNESS OR DISCHARGE OF EYE 09/17/2012 ARMANI KEITH APRN 379.93 REDNESS OR DISCHARGE OF EYE 09/17/2012 JOCELYNN POE DO K 379.93 REDNESS OR DISCHARGE OF EYE 09/17/2012 THANIA WEBB MD 379.93 REDNESS OR DISCHARGE OF EYE 09/27/2012 THANIA WEBB MD 345.10 GENERALIZED CONVULSIVE EPILEPSY WITHOUT INTRACTABLE EPILEPSY 09/27/2012 THANIA WEBB MD 345.10 GENERALIZED CONVULSIVE EPILEPSY WITHOUT INTRACTABLE EPILEPSY 09/27/2012 THANIA WEBB MD 345.10 GENERALIZED CONVULSIVE EPILEPSY WITHOUT INTRACTABLE EPILEPSY 09/27/2012 345.10 GENERALIZED CONVULSIVE EPILEPSY WITHOUT INTRACTABLE EPILEPSY 09/27/2012 345.10 GENERALIZED CONVULSIVE EPILEPSY WITHOUT INTRACTABLE EPILEPSY 09/27/2012 345.10 GENERALIZED CONVULSIVE EPILEPSY WITHOUT INTRACTABLE EPILEPSY 09/27/2012 345.10 GENERALIZED CONVULSIVE EPILEPSY WITHOUT INTRACTABLE EPILEPSY 09/27/2012 345.10 GENERALIZED CONVULSIVE EPILEPSY WITHOUT INTRACTABLE EPILEPSY 09/27/2012 JOCELYNN POE DO K 345.10 GENERALIZED CONVULSIVE EPILEPSY WITHOUT INTRACTABLE EPILEPSY 09/27/2012 JOCELYNN POE DO K 345.10 GENERALIZED CONVULSIVE EPILEPSY WITHOUT INTRACTABLE EPILEPSY 09/27/2012 THANIA WEBB MD 345.10 GENERALIZED CONVULSIVE EPILEPSY WITHOUT INTRACTABLE EPILEPSY 09/27/2012 JOCELYNN POE DO K 345.10 GENERALIZED CONVULSIVE EPILEPSY WITHOUT INTRACTABLE EPILEPSY 09/27/2012 THANIA WEBB MD 345.10 GENERALIZED CONVULSIVE EPILEPSY WITHOUT INTRACTABLE EPILEPSY 09/27/2012 AMI CHAN APRN 345.10 GENERALIZED CONVULSIVE EPILEPSY WITHOUT INTRACTABLE EPILEPSY 09/27/2012 THANIA WEBB MD 345.10 GENERALIZED CONVULSIVE EPILEPSY WITHOUT INTRACTABLE EPILEPSY 09/27/2012 ARMANI KEITH APRN 345.10 GENERALIZED CONVULSIVE EPILEPSY WITHOUT INTRACTABLE EPILEPSY 09/27/2012 ARMANI KEITH APRN 345.10 GENERALIZED CONVULSIVE EPILEPSY WITHOUT INTRACTABLE EPILEPSY 09/27/2012 THANIA WEBB MD 345.10 GENERALIZED CONVULSIVE EPILEPSY WITHOUT INTRACTABLE EPILEPSY 09/27/2012 THANIA WEBB MD 345.10 GENERALIZED CONVULSIVE EPILEPSY WITHOUT INTRACTABLE EPILEPSY 09/27/2012 ANTON MERINO APRN R 345.10 GENERALIZED CONVULSIVE EPILEPSY WITHOUT INTRACTABLE EPILEPSY 09/27/2012 ROMÁN POE DOA K 345.10 GENERALIZED CONVULSIVE EPILEPSY WITHOUT INTRACTABLE EPILEPSY 09/27/2012 DEEPIKA JIMENEZ, JOCELYNN K 345.10 GENERALIZED CONVULSIVE EPILEPSY WITHOUT INTRACTABLE EPILEPSY 09/27/2012 ARMANI KEITH APRN 345.10 GENERALIZED CONVULSIVE EPILEPSY WITHOUT INTRACTABLE EPILEPSY 09/27/2012 DEEPIKA JIMENEZ JOCELYNN [place] 345.10 GENERALIZED CONVULSIVE EPILEPSY WITHOUT INTRACTABLE EPILEPSY 09/27/2012 THANIA WEBB MD 345.10 GENERALIZED CONVULSIVE EPILEPSY WITHOUT INTRACTABLE EPILEPSY 04/07/2013 719.40 ARTHRAIGIA UNSPEC 04/07/2013 780.39 SEIZURES OTHER 04/07/2013 719.40 ARTHRAIGIA UNSPEC 04/07/2013 780.39 SEIZURES OTHER 04/07/2013 719.40 ARTHRAIGIA UNSPEC 04/07/2013 780.39 SEIZURES OTHER 04/07/2013 719.40 ARTHRAIGIA UNSPEC 04/07/2013 780.39 SEIZURES OTHER 04/07/2013 JOCELYNN POE DO K 719.40 ARTHRAIGIA UNSPEC 04/07/2013 POE JOCELYNN JIMENEZ K 780.39 SEIZURES OTHER 04/07/2013 POE JOCELYNN JIMENEZ K 719.40 ARTHRAIGIA UNSPEC 04/07/2013 POE JOCELYNN JIMENEZ K 780.39 SEIZURES OTHER 04/07/2013 THANIA WEBB MD 719.40 ARTHRAIGIA UNSPEC 04/07/2013 THANIA WEBB MD 780.39 SEIZURES OTHER 04/07/2013 POE JOCELYNN JIMENEZ 719.40 ARTHRAIGIA UNSPEC 04/07/2013 POE OJCELYNN JIMENEZ K 780.39 SEIZURES OTHER 04/07/2013 THANIA WEBB MD 719.40 ARTHRAIGIA UNSPEC 04/07/2013 THANIA WEBB MD 780.39 SEIZURES OTHER 04/07/2013 AMI CHAN APRN 719.40 ARTHRAIGIA UNSPEC 04/07/2013 AMI CHAN APRN 780.39 SEIZURES OTHER 04/07/2013 THANIA WEBB MD 719.40 ARTHRAIGIA UNSPEC 04/07/2013 THANIA WEBB MD 780.39 SEIZURES OTHER 04/07/2013 ARMANI KEITH APRN 719.40 ARTHRAIGIA UNSPEC 04/07/2013 ARMANI KEITH APRN 780.39 SEIZURES OTHER 04/07/2013 ARMANI KEITH APRN 719.40 ARTHRAIGIA UNSPEC 04/07/2013 ARMANI KEITH APRN 780.39 SEIZURES OTHER 04/07/2013 THANIA WEBB MD 719.40 ARTHRAIGIA UNSPEC 04/07/2013 THANIA WEBB MD 780.39 SEIZURES OTHER 04/07/2013 THANIA WEBB MD 719.40 ARTHRAIGIA UNSPEC 04/07/2013 THANIA WEBB MD 780.39 SEIZURES OTHER 04/07/2013 WILBER HAWKINS ANTON R 719.40 ARTHRAIGIA UNSPEC 04/07/2013 WILBER HAWKINS ANTON R 780.39 SEIZURES OTHER 04/07/2013 POE DO, JOCELYNN K 719.40 ARTHRAIGIA UNSPEC 04/07/2013 POE DO, JOCELYNN K 780.39 SEIZURES OTHER 04/07/2013 POE DO, JOCELYNN K 719.40 ARTHRAIGIA UNSPEC 04/07/2013 POE DO, JOCELYNN K 780.39 SEIZURES OTHER 04/07/2013 ARMANI KEITH APRN 719.40 ARTHRAIGIA UNSPEC 04/07/2013 ARMANI KEITH APRN 780.39 SEIZURES OTHER 04/07/2013 POE DO, JOCELYNN K 719.40 ARTHRAIGIA UNSPEC 04/07/2013 POE DO, JOCELYNN K 780.39 SEIZURES OTHER 05/02/2013 008.8 INTESTINAL INFECTION DUE TO OTHER ORGANISM NOT ELSEWHERE CLASSIFIED 05/02/2013 008.8 INTESTINAL INFECTION DUE TO OTHER ORGANISM NOT ELSEWHERE CLASSIFIED 05/02/2013 008.8 INTESTINAL INFECTION DUE TO OTHER ORGANISM NOT ELSEWHERE CLASSIFIED 05/02/2013 POE DO, JOCELYNN K 008.8 INTESTINAL INFECTION DUE TO OTHER ORGANISM NOT ELSEWHERE CLASSIFIED 05/02/2013 POE DO, JOCELYNN K 008.8 INTESTINAL INFECTION DUE TO OTHER ORGANISM NOT ELSEWHERE CLASSIFIED 05/02/2013 THANIA WEBB MD 008.8 INTESTINAL INFECTION DUE TO OTHER ORGANISM NOT ELSEWHERE CLASSIFIED 05/02/2013 POE DO, JOCELYNN K 008.8 INTESTINAL INFECTION DUE TO OTHER ORGANISM NOT ELSEWHERE CLASSIFIED 05/02/2013 THANIA WEBB MD 008.8 INTESTINAL INFECTION DUE TO OTHER ORGANISM NOT ELSEWHERE CLASSIFIED 05/02/2013 AMI CHAN APRN 008.8 INTESTINAL INFECTION DUE TO OTHER ORGANISM NOT ELSEWHERE CLASSIFIED 05/02/2013 THANIA WEBB MD 008.8 INTESTINAL INFECTION DUE TO OTHER ORGANISM NOT ELSEWHERE CLASSIFIED 05/02/2013 ARMANI KEITH APRN 008.8 INTESTINAL INFECTION DUE TO OTHER ORGANISM NOT ELSEWHERE CLASSIFIED 05/02/2013 ARMANI KEITH APRN 008.8 INTESTINAL INFECTION DUE TO OTHER ORGANISM NOT ELSEWHERE CLASSIFIED 05/02/2013 THANIA WEBB MD 008.8 INTESTINAL INFECTION DUE TO OTHER ORGANISM NOT ELSEWHERE CLASSIFIED 05/02/2013 THANIA WEBB MD 008.8 INTESTINAL INFECTION DUE TO OTHER ORGANISM NOT ELSEWHERE CLASSIFIED 05/02/2013 ANTON MERINO APRN 008.8 INTESTINAL INFECTION DUE TO OTHER ORGANISM NOT ELSEWHERE CLASSIFIED 05/02/2013 POE DO, JOCELYNN K 008.8 INTESTINAL INFECTION DUE TO OTHER ORGANISM NOT ELSEWHERE CLASSIFIED 05/02/2013 POE DO, JOCELYNN K 008.8 INTESTINAL INFECTION DUE TO OTHER ORGANISM NOT ELSEWHERE CLASSIFIED 05/02/2013 ARMANI KEITH APRN 008.8 INTESTINAL INFECTION DUE TO OTHER ORGANISM NOT ELSEWHERE CLASSIFIED 05/02/2013 POE DO, JOCELYNN K 008.8 INTESTINAL INFECTION DUE TO OTHER ORGANISM NOT ELSEWHERE CLASSIFIED 05/05/2013 995.3 ALLERGY UNSPECIFIED NOT ELSEWHERE CLASSIFIED 05/05/2013 995.3 ALLERGY UNSPECIFIED NOT ELSEWHERE CLASSIFIED 05/05/2013 POE DO, JOCELYNN K 995.3 ALLERGY UNSPECIFIED NOT ELSEWHERE CLASSIFIED 05/05/2013 POE DO, JOCELYNN K 995.3 ALLERGY UNSPECIFIED NOT ELSEWHERE CLASSIFIED 05/05/2013 THANIA WEBB MD 995.3 ALLERGY UNSPECIFIED NOT ELSEWHERE CLASSIFIED 05/05/2013 POE DO, JOCELYNN K 995.3 ALLERGY UNSPECIFIED NOT ELSEWHERE CLASSIFIED 05/05/2013 TAHNIA WEBB MD 995.3 ALLERGY UNSPECIFIED NOT ELSEWHERE CLASSIFIED 05/05/2013 AMI CHAN APRN 995.3 ALLERGY UNSPECIFIED NOT ELSEWHERE CLASSIFIED 05/05/2013 THANIA WEBB MD 995.3 ALLERGY UNSPECIFIED NOT ELSEWHERE CLASSIFIED 05/05/2013 ARMANI KEITH APRN 995.3 ALLERGY UNSPECIFIED NOT ELSEWHERE CLASSIFIED 05/05/2013 ARMANI KEITH APRN 995.3 ALLERGY UNSPECIFIED NOT ELSEWHERE CLASSIFIED 05/05/2013 THANIA WEBB MD 995.3 ALLERGY UNSPECIFIED NOT ELSEWHERE CLASSIFIED 05/05/2013 THANIA WEBB MD 995.3 ALLERGY UNSPECIFIED NOT ELSEWHERE CLASSIFIED 05/05/2013 LISA MERINO APRNRO [place] 995.3 ALLERGY UNSPECIFIED NOT ELSEWHERE CLASSIFIED 05/05/2013 POE DO, JOCELYNN K 995.3 ALLERGY UNSPECIFIED NOT ELSEWHERE CLASSIFIED 05/05/2013 POE DO, JOCELYNN K 995.3 ALLERGY UNSPECIFIED NOT ELSEWHERE CLASSIFIED 05/05/2013 SAGAR CRAFT COORDINATOR, ARMANI Selam 995.3 ALLERGY UNSPECIFIED NOT ELSEWHERE CLASSIFIED 05/05/2013 POE DO, JOCELYNN K 995.3 ALLERGY UNSPECIFIED NOT ELSEWHERE CLASSIFIED 05/12/2013 916.1 ABRASION OR FRICTION BURN OF HIP THIGH LEG AND ANKLE INFECTED 05/12/2013 959.7 OTHER AND UNSPECIFIED INJURY TO KNEE LEG ANKLE AND FOOT 05/12/2013 E917.9 OTHER ACCIDENT CAUSED BY STRIKING AGAINST OR BEING STRUCK ACCIDENTALLY BY OBJECTS OR PERSONS WITH/WITHOUT SUBSEQUENT FALL 05/12/2013 POE DO, JOCELYNN K 916.1 ABRASION OR FRICTION BURN OF HIP THIGH LEG AND ANKLE INFECTED 05/12/2013 POE DO, JOCELYNN K 959.7 OTHER AND UNSPECIFIED INJURY TO KNEE LEG ANKLE AND FOOT 05/12/2013 POE DO JOCELYNN K E917.9 OTHER ACCIDENT CAUSED BY STRIKING AGAINST OR BEING STRUCK ACCIDENTALLY BY OBJECTS OR PERSONS WITH/WITHOUT SUBSEQUENT FALL 05/12/2013 POE DO, JOCELYNN K 916.1 ABRASION OR FRICTION BURN OF HIP THIGH LEG AND ANKLE INFECTED 05/12/2013 POE DOROMÁNA K 959.7 OTHER AND UNSPECIFIED INJURY TO KNEE LEG ANKLE AND FOOT 05/12/2013 POE DO, JOCELYNN K E917.9 OTHER ACCIDENT CAUSED BY STRIKING AGAINST OR BEING STRUCK ACCIDENTALLY BY OBJECTS OR PERSONS WITH/WITHOUT SUBSEQUENT FALL 05/12/2013 THANIA WEBB MD 916.1 ABRASION OR FRICTION BURN OF HIP THIGH LEG AND ANKLE INFECTED 05/12/2013 THANIA WEBB MD 959.7 OTHER AND UNSPECIFIED INJURY TO KNEE LEG ANKLE AND FOOT 05/12/2013 THANIA WEBB MD E917.9 OTHER ACCIDENT CAUSED BY STRIKING AGAINST OR BEING STRUCK ACCIDENTALLY BY OBJECTS OR PERSONS WITH/WITHOUT SUBSEQUENT FALL 05/12/2013 POE DO JOCELYNN K 916.1 ABRASION OR FRICTION BURN OF HIP THIGH LEG AND ANKLE INFECTED 05/12/2013 OPE ROMÁN JIMENEZA K 959.7 OTHER AND UNSPECIFIED INJURY TO KNEE LEG ANKLE AND FOOT 05/12/2013 POE DO, JOCELYNN K E917.9 OTHER ACCIDENT CAUSED BY STRIKING AGAINST OR BEING STRUCK ACCIDENTALLY BY OBJECTS OR PERSONS WITH/WITHOUT SUBSEQUENT FALL 05/12/2013 THANIA WEBB MD 916.1 ABRASION OR FRICTION BURN OF HIP THIGH LEG AND ANKLE INFECTED 05/12/2013 THANIA WEBB MD 959.7 OTHER AND UNSPECIFIED INJURY TO KNEE LEG ANKLE AND FOOT 05/12/2013 THANIA WEBB MD E917.9 OTHER ACCIDENT CAUSED BY STRIKING AGAINST OR BEING STRUCK ACCIDENTALLY BY OBJECTS OR PERSONS WITH/WITHOUT SUBSEQUENT FALL 05/12/2013 AMI CHAN APRN R 916.1 ABRASION OR FRICTION BURN OF HIP THIGH LEG AND ANKLE INFECTED 05/12/2013 AMI CHAN APRN R 959.7 OTHER AND UNSPECIFIED INJURY TO KNEE LEG ANKLE AND FOOT 05/12/2013 AMI CHAN APRN R E917.9 OTHER ACCIDENT CAUSED BY STRIKING AGAINST OR BEING STRUCK ACCIDENTALLY BY OBJECTS OR PERSONS WITH/WITHOUT SUBSEQUENT FALL 05/12/2013 THANIA WEBB MD 916.1 ABRASION OR FRICTION BURN OF HIP THIGH LEG AND ANKLE INFECTED 05/12/2013 THANIA WEBB MD 959.7 OTHER AND UNSPECIFIED INJURY TO KNEE LEG ANKLE AND FOOT 05/12/2013 THANIA WEBB MD E917.9 OTHER ACCIDENT CAUSED BY STRIKING AGAINST OR BEING STRUCK ACCIDENTALLY BY OBJECTS OR PERSONS WITH/WITHOUT SUBSEQUENT FALL 05/12/2013 ARMANI KEITH APRN 916.1 ABRASION OR FRICTION BURN OF HIP THIGH LEG AND ANKLE INFECTED 05/12/2013 ARMANI KEITH APRN 959.7 OTHER AND UNSPECIFIED INJURY TO KNEE LEG ANKLE AND FOOT 05/12/2013 ARMANI KEITH APRN E917.9 OTHER ACCIDENT CAUSED BY STRIKING AGAINST OR BEING STRUCK ACCIDENTALLY BY OBJECTS OR PERSONS WITH/WITHOUT SUBSEQUENT FALL 05/12/2013 ARMANI KEITH APRN 916.1 ABRASION OR FRICTION BURN OF HIP THIGH LEG AND ANKLE INFECTED 05/12/2013 ARMANI KEITH APRN 959.7 OTHER AND UNSPECIFIED INJURY TO KNEE LEG ANKLE AND FOOT 05/12/2013 ARMANI KEITH APRN E917.9 OTHER ACCIDENT CAUSED BY STRIKING AGAINST OR BEING STRUCK ACCIDENTALLY BY OBJECTS OR PERSONS WITH/WITHOUT SUBSEQUENT FALL 05/12/2013 THANIA WEBB MD 916.1 ABRASION OR FRICTION BURN OF HIP THIGH LEG AND ANKLE INFECTED 05/12/2013 THANIA WEBB MD 959.7 OTHER AND UNSPECIFIED INJURY TO KNEE LEG ANKLE AND FOOT 05/12/2013 THANIA WEBB MD E917.9 OTHER ACCIDENT CAUSED BY STRIKING AGAINST OR BEING STRUCK ACCIDENTALLY BY OBJECTS OR PERSONS WITH/WITHOUT SUBSEQUENT FALL 05/12/2013 THANIA WEBB MD 916.1 ABRASION OR FRICTION BURN OF HIP THIGH LEG AND ANKLE INFECTED 05/12/2013 THANIA WEBB MD 959.7 OTHER AND UNSPECIFIED INJURY TO KNEE LEG ANKLE AND FOOT 05/12/2013 THANIA WEBB MD E917.9 OTHER ACCIDENT CAUSED BY STRIKING AGAINST OR BEING STRUCK ACCIDENTALLY BY OBJECTS OR PERSONS WITH/WITHOUT SUBSEQUENT FALL 05/12/2013 ANTON MERINO APRN R 916.1 ABRASION OR FRICTION BURN OF HIP THIGH LEG AND ANKLE INFECTED 05/12/2013 ANTON MERINO APRN R 959.7 OTHER AND UNSPECIFIED INJURY TO KNEE LEG ANKLE AND FOOT 05/12/2013 ANTON MERINO APRN E917.9 OTHER ACCIDENT CAUSED BY STRIKING AGAINST OR BEING STRUCK ACCIDENTALLY BY OBJECTS OR PERSONS WITH/WITHOUT SUBSEQUENT FALL 05/12/2013 DEEPIKA DO, JOCELYNN K 916.1 ABRASION OR FRICTION BURN OF HIP THIGH LEG AND ANKLE INFECTED 05/12/2013 DEEPIKA JIMENEZ, JOCELYNN K 959.7 OTHER AND UNSPECIFIED INJURY TO KNEE LEG ANKLE AND FOOT 05/12/2013 DEEPIKA DO, JOCELYNN K E917.9 OTHER ACCIDENT CAUSED BY STRIKING AGAINST OR BEING STRUCK ACCIDENTALLY BY OBJECTS OR PERSONS WITH/WITHOUT SUBSEQUENT FALL 05/12/2013 POE DO, JOCELYNN K 916.1 ABRASION OR FRICTION BURN OF HIP THIGH LEG AND ANKLE INFECTED 05/12/2013 DEEPIKA JIMENEZ, JOCELYNN K 959.7 OTHER AND UNSPECIFIED INJURY TO KNEE LEG ANKLE AND FOOT 05/12/2013 POE DO, JOCELYNN K E917.9 OTHER ACCIDENT CAUSED BY STRIKING AGAINST OR BEING STRUCK ACCIDENTALLY BY OBJECTS OR PERSONS WITH/WITHOUT SUBSEQUENT FALL 05/12/2013 ARMANI KEITH APRN 916.1 ABRASION OR FRICTION BURN OF HIP THIGH LEG AND ANKLE INFECTED 05/12/2013 ARMANI KEITH APRN 959.7 OTHER AND UNSPECIFIED INJURY TO KNEE LEG ANKLE AND FOOT 05/12/2013 ARMANI KEITH APRN E917.9 OTHER ACCIDENT CAUSED BY STRIKING AGAINST OR BEING STRUCK ACCIDENTALLY BY OBJECTS OR PERSONS WITH/WITHOUT SUBSEQUENT FALL 05/12/2013 ROMÁN POE DOA K 916.1 ABRASION OR FRICTION BURN OF HIP THIGH LEG AND ANKLE INFECTED 05/12/2013 POE DO, JOCELYNN K 959.7 OTHER AND UNSPECIFIED INJURY TO KNEE LEG ANKLE AND FOOT 05/12/2013 POE DO, JOCELYNN K E917.9 OTHER ACCIDENT CAUSED BY STRIKING AGAINST OR BEING STRUCK ACCIDENTALLY BY OBJECTS OR PERSONS WITH/WITHOUT SUBSEQUENT FALL 06/08/2013 POE DO, JOCELYNN K 729.5 PAIN IN LIMB 06/08/2013 POE DO, JOCELYNN K 729.5 PAIN IN LIMB 06/08/2013 THANIA WEBB MD 729.5 PAIN IN LIMB 06/08/2013 POE DO, JOCELYNN K 729.5 PAIN IN LIMB 06/08/2013 THANIA WEBB MD 729.5 PAIN IN LIMB 06/08/2013 AMI CHAN APRN R 729.5 PAIN IN LIMB 06/08/2013 THANIA WEBB MD 729.5 PAIN IN LIMB 06/08/2013 ARMANI KEITH APRN 729.5 PAIN IN LIMB 06/08/2013 ARMANI KEITH APRN 729.5 PAIN IN LIMB 06/08/2013 THANIA WEBB MD 729.5 PAIN IN LIMB 06/08/2013 THANIA WEBB MD 729.5 PAIN IN LIMB 06/08/2013 ANTON MERINO APRN R 729.5 PAIN IN LIMB 06/08/2013 POE DO, JOCELYNN K 729.5 PAIN IN LIMB 06/08/2013 POE DO, JOCELYNN K 729.5 PAIN IN LIMB 06/08/2013 ARMANI KEITH APRN T 729.5 PAIN IN LIMB 06/08/2013 POE DO, JCOELYNN K 729.5 PAIN IN LIMB 10/11/2013 DEEPIKA JIMENEZ JOCELYNN K 709.9 UNSPECIFIED DISORDER OF SKIN AND SUBCUTANEOUS TISSUE 10/11/2013 THANIA WEBB MD 70Josh.9 UNSPECIFIED DISORDER OF SKIN AND SUBCUTANEOUS TISSUE 10/11/2013 DEEPIKA JIMENEZ JOCELYNN K 709.9 UNSPECIFIED DISORDER OF SKIN AND SUBCUTANEOUS TISSUE 10/11/2013 THANIA WEBB MD.9 UNSPECIFIED DISORDER OF SKIN AND SUBCUTANEOUS TISSUE 10/11/2013 AMI CHAN APRN R 709.9 UNSPECIFIED DISORDER OF SKIN AND SUBCUTANEOUS TISSUE 10/11/2013 THANIA WEBB MD 709.9 UNSPECIFIED DISORDER OF SKIN AND SUBCUTANEOUS TISSUE 10/11/2013 ARMANI KEITH APRN 709.9 UNSPECIFIED DISORDER OF SKIN AND SUBCUTANEOUS TISSUE 10/11/2013 ARMANI KEITH APRN 709.9 UNSPECIFIED DISORDER OF SKIN AND SUBCUTANEOUS TISSUE 10/11/2013 THANIA WEBB MD 709.9 UNSPECIFIED DISORDER OF SKIN AND SUBCUTANEOUS TISSUE 10/11/2013 THANIA WEBB MD 709.9 UNSPECIFIED DISORDER OF SKIN AND SUBCUTANEOUS TISSUE 10/11/2013 ANTON MERINO APRN R 709.9 UNSPECIFIED DISORDER OF SKIN AND SUBCUTANEOUS TISSUE 10/11/2013 DEEPIKA JIMENEZ JOCELYNN K 709.9 UNSPECIFIED DISORDER OF SKIN AND SUBCUTANEOUS TISSUE 10/11/2013 ROMÁN POE DOA K 709.9 UNSPECIFIED DISORDER OF SKIN AND SUBCUTANEOUS TISSUE 10/11/2013 ARMANI KEITH APRN 709.9 UNSPECIFIED DISORDER OF SKIN AND SUBCUTANEOUS TISSUE 10/11/2013 ROMÁN POE DOA K 709.9 UNSPECIFIED DISORDER OF SKIN AND SUBCUTANEOUS TISSUE 11/28/2013 THANIA WBEB MD 461.9 ACUTE SINUSITIS UNSPECIFIED 11/28/2013 AMI CHAN APRN R 461.9 ACUTE SINUSITIS UNSPECIFIED 11/28/2013 THANIA WEBB MD 461.9 ACUTE SINUSITIS UNSPECIFIED 11/28/2013 ARMANI KEITH APRN 461.9 ACUTE SINUSITIS UNSPECIFIED 11/28/2013 ARMANI KEITH APRN 461.9 ACUTE SINUSITIS UNSPECIFIED 11/28/2013 THANIA WEBB MD 461.9 ACUTE SINUSITIS UNSPECIFIED 11/28/2013 THANIA WEBB MD 461.9 ACUTE SINUSITIS UNSPECIFIED 11/28/2013 ANTON MERINO APRN R 461.9 ACUTE SINUSITIS UNSPECIFIED 11/28/2013 ROMÁN POE DOA K 461.9 ACUTE SINUSITIS UNSPECIFIED 11/28/2013 ROMÁN POE DOA K 461.9 ACUTE SINUSITIS UNSPECIFIED 11/28/2013 ARMANI KEITH APRN 461.9 ACUTE SINUSITIS UNSPECIFIED 11/28/2013 ROMÁN POE DOA K 461.9 ACUTE SINUSITIS UNSPECIFIED 01/03/2014 DUSTIN CRAFT COORDINATOR, AMI R 477.1 ALLERGIC RHINITIS DUE TO FOOD 01/03/2014 THANIA WEBB MD 477.1 ALLERGIC RHINITIS DUE TO FOOD 01/03/2014 ARMANI KEITH APRN 477.1 ALLERGIC RHINITIS DUE TO FOOD 01/03/2014 ARMANI KEITH APRN 477.1 ALLERGIC RHINITIS DUE TO FOOD 01/03/2014 THANIA WEBB MD 477.1 ALLERGIC RHINITIS DUE TO FOOD 01/03/2014 THANIA WEBB MD 477.1 ALLERGIC RHINITIS DUE TO FOOD 01/03/2014 ANTON MERINO APRN 477.1 ALLERGIC RHINITIS DUE TO FOOD 01/03/2014 POE DOROMÁNA K 477.1 ALLERGIC RHINITIS DUE TO FOOD 01/03/2014 POE DO JOCELYNN K 477.1 ALLERGIC RHINITIS DUE TO FOOD 01/03/2014 ARMANI KEITH APRN 477.1 ALLERGIC RHINITIS DUE TO FOOD 01/03/2014 POE JOCELYNN JIMENEZ K 477.1 ALLERGIC RHINITIS DUE TO FOOD 05/31/2014 THANIA WEBB MD 214.0 LIPOMA OF SKIN AND SUBCUTANEOUS TISSUE OF FACE 05/31/2014 THANIA WEBB MD 296.90 MOOD DISORDER 05/31/2014 ARMANI KEITH APRN 214.0 LIPOMA OF SKIN AND SUBCUTANEOUS TISSUE OF FACE 05/31/2014 ARMANI KEITH APRN 296.90 MOOD DISORDER 05/31/2014 ARMANI KEITH APRN 214.0 LIPOMA OF SKIN AND SUBCUTANEOUS TISSUE OF FACE 05/31/2014 ARMANI KEITH APRN 296.90 MOOD DISORDER 05/31/2014 THANIA WEBB MD 214.0 LIPOMA OF SKIN AND SUBCUTANEOUS TISSUE OF FACE 05/31/2014 THANIA WEBB MD 296.90 MOOD DISORDER 05/31/2014 THANIA WEBB MD 214.0 LIPOMA OF SKIN AND SUBCUTANEOUS TISSUE OF FACE 05/31/2014 THANIA WEBB MD 296.90 MOOD DISORDER 05/31/2014 ANTON MERINO APRN 214.0 LIPOMA OF SKIN AND SUBCUTANEOUS TISSUE OF FACE 05/31/2014 ANTON MERINO APRN 296.90 MOOD DISORDER 05/31/2014 POE DO, JOCELYNN K 214.0 LIPOMA OF SKIN AND SUBCUTANEOUS TISSUE OF FACE 05/31/2014 POE DO JOCELYNN K 296.90 MOOD DISORDER 05/31/2014 POE DO, JOCELYNN K 214.0 LIPOMA OF SKIN AND SUBCUTANEOUS TISSUE OF FACE 05/31/2014 POE DO, JOCELYNN K 296.90 MOOD DISORDER 05/31/2014 ARMANI KEITH APRN 214.0 LIPOMA OF SKIN AND SUBCUTANEOUS TISSUE OF FACE 05/31/2014 ARMANI KEITH APRN 296.90 MOOD DISORDER 05/31/2014 POE DO, JOCELYNN K 214.0 LIPOMA OF SKIN AND SUBCUTANEOUS TISSUE OF FACE 05/31/2014 POE DO, JOCELYNN K 296.90 MOOD DISORDER 06/28/2014 ARMANI KEITH APRN V74.5 STD SCREEN 06/28/2014 ARMANI KEITH APRN V74.5 STD SCREEN 06/28/2014 THANIA WEBB MD V74.5 STD SCREEN 06/28/2014 THANIA WEBB MD V74.5 STD SCREEN 06/28/2014 ANTON MERINO APRN R V74.5 STD SCREEN 06/28/2014 POE DO, JOCELYNN K V74.5 STD SCREEN 06/28/2014 POE DO, JOCELYNN K V74.5 STD SCREEN 06/28/2014 ARMANI KEITH APRN V74.5 STD SCREEN 06/28/2014 POE DO, JOCELYNN K V74.5 STD SCREEN 07/11/2014 ARMANI KEITH APRN 706.2 SEBACEOUS CYST 07/11/2014 THANIA WEBB MD 706.2 SEBACEOUS CYST 07/11/2014 THANIA WEBB MD 706.2 SEBACEOUS CYST 07/11/2014 ANTON MERINO APRN R 706.2 SEBACEOUS CYST 07/11/2014 POE DO, JOCELYNN K 706.2 SEBACEOUS CYST 07/11/2014 POE DO, JOCELYNN K 706.2 SEBACEOUS CYST 07/11/2014 ARMANI KEITH APRN 706.2 SEBACEOUS CYST 07/11/2014 POE DO, JOCELYNN K 706.2 SEBACEOUS CYST 07/19/2014 THANIA WEBB MD V58.32 SUTURE REMOVAL 07/19/2014 THANIA WEBB MD V58.32 SUTURE REMOVAL 07/19/2014 ANTON MERINO APRN V58.32 SUTURE REMOVAL 07/19/2014 POE DO, JOCELYNN K V58.32 SUTURE REMOVAL 07/19/2014 POE DO, JOCELYNN K V58.32 SUTURE REMOVAL 07/19/2014 ARMANI KEITH APRN V58.32 SUTURE REMOVAL 07/19/2014 JOCELYNN POE DO V58.32 SUTURE REMOVAL 09/14/2014 JON GÓMEZ, THANIA 463 ACUTE TONSILLITIS 09/14/2014 ANTON MERINO APRN 463 ACUTE TONSILLITIS 09/14/2014 JOCELYNN POE DO 463 ACUTE TONSILLITIS 09/14/2014 JOCELYNN POE DO 463 ACUTE TONSILLITIS 09/14/2014 ARMANI KEITH APRN 463 ACUTE TONSILLITIS 09/14/2014 JOCELYNN POE DO 463 ACUTE TONSILLITIS 10/28/2014 JOCELYNN POE DO 462 ACUTE PHARYNGITIS 10/28/2014 ARMANI KEITH APRN 462 ACUTE PHARYNGITIS 10/28/2014 JOCELYNN POE DO 462 ACUTE PHARYNGITIS 02/26/2015 JOCELYNN POE DO V06.1 TDAP DX Procedures Code Description Performed By Performed On Otolaryng Anant Garsia 09/20/2012 [id number] ROUTINE VENIPUNCTURE 09/28/2012 [id number] EEG 09/28/2012 61965 CMP 09/28/2012 [id number] GFR CALC (RESULT ONLY) 09/28/2012 15651 TSH 09/29/[address] HEAD/BRAIN W/O & W/DYE 10/04/2012 02418 ROUTINE VENIPUNCTURE 10/15/2012 38966 DILANTIN 10/16/2012 96787 CMP 10/16/2012 [id number] GFR CALC (RESULT ONLY) 10/16/2012 83891 ROUTINE VENIPUNCTURE 10/18/2012 57225 HEPATITIS PROFILE 10/19/2012 70374 VALPROIC ACID / DEPAKOTE 10/26/2012 13920 ROUTINE VENIPUNCTURE 11/12/2012 26303 CMP 11/12/2012 5148047 GFR CALC (RESULT ONLY) 11/12/2012 06807 VALPROIC ACID / DEPAKOTE 11/13/2012 75786 ROUTINE VENIPUNCTURE 12/06/2012 64619 VALPROIC ACID / DEPAKOTE 12/07/2012 37612 ROUTINE VENIPUNCTURE 04/25/2013 80025 VALPROIC ACID / DEPAKOTE 04/25/2013 50155 THERAPUTIC INJ SQ/IM 05/05/2013 J1040 DEPO MEDROL 80 MG INJ 05/05/2013 39734 XRAY TIBULA FIBULA LEFT 05/12/2013 45905 ROUTINE VENIPUNCTURE 10/11/2013 83171 CBC 10/11/2013 3323141 GFR CALC (RESULT ONLY) 10/11/2013 20640 CMP 10/11/2013 90907 VALPROIC ACID / DEPAKOTE 10/11/2013 Neurology Zach Ford 11/15/2013 47968 ROUTINE VENIPUNCTURE 06/28/2014 06393 SYPHILLIS-[facility] 06/28/2014 91696 HIV ([facility]) 06/28/2014 14093 HEP B SURFACE ANTIGEN ([facility] ) 06/28/2014 41668 GC/CHLAM PROBE ([facility]) 06/28/2014 61531 ROUTINE VENIPUNCTURE 07/11/2014 86587 EXCISION BENIGN LESION 0.6- 1 cm (spcify location in [facility] description) 07/11/2014 21357 VALPROIC ACID / DEPAKOTE 07/11/2014 54179 EXCISION BENIGN LESION 0.6- 1 cm (spcify location in [facility] description) 07/11/2014 12813 VALPROIC ACID / DEPAKOTE 07/11/2014 23325 ROUTINE VENIPUNCTURE 07/19/2014 0414264 GFR CALC (RESULT ONLY) 07/19/2014 36935 CMP 07/19/2014 06412 OXIMETRY 09/18/2014 17377 ROUTINE VENIPUNCTURE 12/01/2014 73688 VALPROIC ACID / DEPAKOTE 12/01/2014 13123 CBC W/MANUAL DIF (order) 12/01/2014 4366768 GFR CALC (RESULT ONLY) 12/01/2014 25794 CMP 12/01/2014 Results There is no data. Encounters ACCT No. Visit Date/Time Discharge Status Pt. Type Provider Facility Loc./Unit Complaint [id number] 02/26/2015 08:30:00 02/26/2015 23:59:59 CLS Outpatient JOCELYNN POE DO [id number] 12/01/2014 12:19:00 12/01/2014 23:59:59 CLS Outpatient ARMANI KEITH APRN [id number] 10/28/2014 12:12:00 10/28/2014 23:59:59 CLS Outpatient JOCELYNN POE DO [id number] 09/18/2014 12:53:00 09/18/2014 23:59:59 CLS Outpatient JOCELYNN POE DO [id number] 09/18/2014 12:09:00 09/18/2014 23:59:59 CLS Outpatient ANTON MERINO APRN [id number] 09/14/2014 09:30:00 09/14/2014 23:59:59 CLS Outpatient THANIA WEBB MD [id number] 07/19/2014 15:33:00 07/19/2014 23:59:59 CLS Outpatient THANIA WEBB MD [id number] 07/11/2014 16:23:00 07/11/2014 23:59:59 CLS Outpatient ARMANI KEITH APRN [id number] 06/28/2014 18:07:00 06/28/2014 23:59:59 CLS Outpatient ARMANI KEITH APRN [id number] 05/31/2014 18:23:00 05/31/2014 23:59:59 CLS Outpatient THANIA WEBB MD [id number] 01/06/2014 10:43:00 01/06/2014 23:59:59 CLS Outpatient DUSTIN HAWKINSAMI [id number] 11/28/2013 15:19:00 11/28/2013 23:59:59 CLS Outpatient THANIA WEBB MD [id number] 11/14/2013 10:21:00 11/14/2013 23:59:59 CLS Outpatient JOCELYNN POE DO [id number] 11/14/2013 08:35:00 11/14/2013 23:59:59 CLS Outpatient THANIA WEBB MD [id number] 10/11/2013 08:28:00 10/11/2013 23:59:59 CLS Outpatient JOCELYNN POE DO [id number] 06/08/2013 17:58:00 06/08/2013 23:59:59 CLS Outpatient JOCELYNN POE DO [id number] 02/18/2013 08:58:00 02/18/2013 23:59:59 CLS Outpatient [id number] 12/06/2012 13:31:00 12/06/2012 23:59:59 CLS Outpatient THANIA WEBB MD [id number] 11/12/2012 13:13:00 11/12/2012 23:59:59 CLS Outpatient THANIA WEBB MD [id number] 10/25/2012 09:18:00 10/25/2012 23:59:59 [place] [id number] 09/17/2012 14:59:00 09/17/2012 23:59:59 CLS Outpatient THANIA WEBB MD [id number] 05/12/2013 09:42:00 Document Registration [id number] 05/05/2013 11:41:00 Document Registration [id number] 05/02/2013 10:33:00 Document Registration [id number] 04/07/2013 13:58:00 Document Registration [id number] 03/25/2018 08:20:00 03/25/2018 23:59:59 CLS Outpatient ARMANI KEITH APRN [facility]
[2018-03-30] MEDS ORDERED: LEVE500T76 (19:56)
[2018-03-30] MEDS ORDERED: LEVO5TAB12 (19:56)
[2018-03-30] MEDS ORDERED: PSEU60TA20 (19:56)
[2018-03-30] MEDS ORDERED: PANT40SU PO (19:56)
[2018-03-30] MEDS ORDERED: DIVA500T7 (19:56)
--- NOTE | 2018-03-30 21:39 | Diagnostic Imaging Report ---
INDICATION: No history available. FINDINGS: The lungs are clear. The heart and vessels normal. There is no effusion or pneumothorax. IMPRESSION: Negative. Dictated by: Dictated on workstation # [id number]
[2018-03-30 21:45] LABS: BASOPHILS # (AUTO) 0.1 10^3/uL (0.0-0.1); BASOPHILS % (AUTO) 1 % (0-10); EOSINOPHILS # (AUTO) 0.2 10^3/uL (0.0-0.3); EOSINOPHILS % (AUTO) 2 % (0-10); HEMATOCRIT 42 % (40-54); HEMOGLOBIN 14.8 G/DL (13.3-17.7); LYMPHOCYTES # (AUTO) 3.2 X 10^3 (1.0-4.0); LYMPHOCYTES % (AUTO) 29 % (12-44); MEAN CORPUSCULAR HEMOGLOBIN 31 PG (25-34); MEAN CORPUSCULAR HGB CONC 35 G/DL (32-36); MEAN CORPUSCULAR VOLUME 88 FL (80-99); MEAN PLATELET VOLUME 10.3 FL (7.4-10.4); MONOCYTES % (AUTO) 9 % (0-12); NEUTROPHILS # (AUTO) 6.5 X 10^3 (1.8-7.8); NEUTROPHILS % (AUTO) 59 % (42-75); PLATELET COUNT 302 10^3/uL (130-400); RED CELL DISTRIBUTION WIDTH 12.2 % (10.0-14.5); WHITE BLOOD COUNT 10.9 10^3/uL (4.3-11.0)
[2018-03-30 21:47] LABS: BILIRUBIN,URINE NEGATIVE (NEGATIVE); CLARITY,URINE CLEAR; COLOR,URINE YELLOW; GLUCOSE, URINE (UA) NEGATIVE (NEGATIVE); KETONES,URINE NEGATIVE (NEGATIVE); LEUKOCYTE ESTERASE ,URINE NEGATIVE (NEGATIVE); NITRITE,URINE NEGATIVE (NEGATIVE); PH,URINE 6 (5-9); PROTEIN,URINE 1+ (NEGATIVE); UROBILINOGEN,URINE NORMAL (NORMAL)
[2018-03-30 21:54] LABS: PROTHROMBIN TIME PATIENT 12.9 SEC (12.2-14.7)
[2018-03-30 21:55] LABS: BACTERIA,URINE NEGATIVE /HPF; WBC,URINE RARE /HPF
[2018-03-30 22:01] LABS: ALANINE AMINOTRANSFERASE 87 U/L (0-55); ALBUMIN 4.6 GM/DL (3.2-4.5); ALKALINE PHOSPHATASE 138 U/L (40-136); BILIRUBIN,TOTAL 0.2 MG/DL (0.1-1.0); BUN/CREATININE RATIO 20; CALCIUM 9.2 MG/DL (8.5-10.1); CARBON DIOXIDE 19 MMOL/L (21-32); CHLORIDE 106 MMOL/L (98-107); GFR ESTIMATED > 60; GLUCOSE 142 MG/DL (70-105); MAGNESIUM 2.4 MG/DL (1.8-2.4); POTASSIUM 4.1 MMOL/L (3.6-5.0); SODIUM 138 MMOL/L (135-145); TOTAL PROTEIN 7.4 GM/DL (6.4-8.2)
[2018-03-30 22:03] LABS: AMPHETAMINE SCREEN, URINE NEGATIVE (NEGATIVE); BARBITURATE SCREEN URINE NEGATIVE (NEGATIVE); BENZODIAZEPINES SCREEN URINE NEGATIVE (NEGATIVE); CANNABINOID SCREEN, URINE NEGATIVE (NEGATIVE); COCAINE SCREEN URINE NEGATIVE (NEGATIVE); METHADONE STAT NEGATIVE (NEGATIVE); METHAMPHETAMINE SCREEN URINE S NEGATIVE (NEGATIVE); OPIATE SCREEN URINE NEGATIVE (NEGATIVE); OXYCODONE STAT NEGATIVE (NEGATIVE); PROPOXYPHENE STAT NEGATIVE (NEGATIVE); TRICYCLIC ANTIDEPRESSANTS SCRE POSITIVE (NEGATIVE)
[2018-03-30 22:18] LABS: VALPROIC ACID 44.8 UG/ML (50.0-100.0)
[2018-03-30 22:21] LABS: TSH (THYROID ANALYZER) 1.41 UIU/ML (0.35-4.94)
--- NOTE | 2018-03-30 22:42 | ED General ---
General Chief Complaint: Psych/Social Disorder Stated Complaint: POSSIBLE ANXIETY Nursing Triage Note: C/O 3-4 ANXIETY EPIZODES OVER LAST WEEK. REPORTS INCREASED STRESS. Nursing Sepsis Screen: No Definite Risk Source of Information: Patient, Family Exam Limitations: No Limitations History of Present Illness Date Seen by Provider: March 30, 2018 Time Seen by Provider: 20:47 Initial Comments This 23-year-old gentleman presents to the emergency room accompanied by his with complaints of feeling dizzy, disoriented, shaky, palpitations and chest pain with accompanied memory deficit. Patient has had 4 of these similar events since March 20. He has a history of "nocturnal seizures" and describes these as an absence type seizure. He does not typically have these while awake and is wondering if his symptoms may be related to seizure. Patient was with his at a childbirth class this evening. He was not feeling well and left the room. He then ended up in the ER waiting room unaware of how he got there. He actually states he does not remember anything between leaving the classroom and arriving in the exam room of the ER. His cognition seems a bit dull at the beginning of the interview and clearing with time. He is feeling a little dizzy, shaking, and disoriented. He is technically alert and oriented 3. He states for a brief time this evening he felt like his hands were not working properly. He does see Dr. Ford, neurologist, and has an appointment within the next few weeks. He is on medications including Depakote. believes he has generally been anxious about the impending of their child. Patient does not know if he has had any true syncope. has not witnessed any true syncope. Patient denies any drug or alcohol use. Allergies and Home Medications Allergies Coded Allergies: Cephalosporins (Verified Allergy, Unknown, 03/30/18) Penicillins (Verified Allergy, Unknown, 03/30/18) Home Medications Pantoprazole Sodium 40 Mg , 40 MG PO DAILY, (Reported) Patient Home Medication List Home Medication List Reviewed: Yes Review of Systems Constitutional: see HPI EENTM: no symptoms reported Respiratory: no symptoms reported Cardiovascular: see HPI Gastrointestinal: no symptoms reported Genitourinary: no symptoms reported Musculoskeletal: no symptoms reported Skin: no symptoms reported Psychiatric/Neurological: See HPI Hematologic/Lymphatic: No Symptoms Reported Past Ccurggf-Vydakt-Ztmrle Hx Patient Social History Alcohol Use: Denies Use Recreational Drug Use: No Smoking Status: Current Everyday Smoker Type Used: Electronic/Vapor 2nd Hand Smoke Exposure: Yes Recent Foreign Travel: No Contact w/Someone Who Travel: No Recent Infectious Disease Expo: No Recent Hopitalizations: No Immunizations Up To Date Tetanus Booster (TDap): Unknown Seasonal Allergies Seasonal Allergies: Yes Past Medical History Surgeries: No Respiratory: No Cardiac: No Neurological: Yes Seizure Disorder Genitourinary: No Gastrointestinal: Yes Gastroesophageal Reflux Musculoskeletal: No Endocrine: No HEENT: No Cancer: No Psychosocial: Yes Anxiety Integumentary: No Blood Disorders: No Physical Exam Vital Signs Vital Signs - First Documented 03/30/18 19:35 Temp 97.8 Pulse 95 Resp 18 B/P (MAP) 146/74 (98) Pulse Ox 99 O2 Delivery Room Air Capillary Refill : Less Than 3 Seconds General Appearance: No Apparent Distress, WD/WN, Obese HEENT: PERRL/EOMI, TMs Normal, Normal ENT Inspection, Pharynx Normal Neck: Normal Inspection Respiratory: Lungs Clear, Normal Breath Sounds, No Accessory Muscle Use, No Respiratory Distress Cardiovascular: Regular Rate, Rhythm, No Edema, No Murmur Gastrointestinal: Normal Bowel Sounds, Non Tender, Soft Extremity: Normal Inspection, No Pedal Edema Neurologic/Psychiatric: Alert, Oriented x3, No Motor/Sensory Deficits, Normal Mood/Affect, captain/check airman II-XII Norm as Tested, Other (Admission initially dulled. Finger to nose normal. No focal neurologic deficits) Skin: Normal Color, Warm/Dry Progress/Results/Core Measures Suspected Sepsis Recent Fever Within 48 Hours: No Infection Criteria Present: None New/Unexplained Altered Menta: No Sepsis Screen: No Definite Risk SIRS Temperature:97.8 Pulse: 95 Respiratory Rate: 18 Laboratory Tests 03/30/18 21:35: White Blood Count 10.9 Blood Pressure 146 /74 Mean: 98 Laboratory Tests 03/30/18 21:35: Creatinine 0.80, INR Comment 1.0, Platelet Count 302, Total Bilirubin 0.2 Results/Orders Lab Results Laboratory Tests Test 03/30/18 21:35 Range/Units White Blood Count 10.9 4.3-11.0 10^3/uL Red Blood Count 4.80 4.35-5.85 10^6/uL Hemoglobin 14.8 13.3-17.7 G/DL Hematocrit 42 40-54 % Mean Corpuscular Volume 88 80-99 FL Mean Corpuscular Hemoglobin 31 25-34 PG Mean Corpuscular Hemoglobin Concent 35 32-36 G/DL Red Cell Distribution Width 12.2 10.0-14.5 % Platelet Count 302 130-400 10^3/uL Mean Platelet Volume 10.3 7.4-10.4 FL Neutrophils (%) (Auto) 59 42-75 % Lymphocytes (%) (Auto) 29 12-44 % Monocytes (%) (Auto) 9 0-12 % Eosinophils (%) (Auto) 2 0-10 % Basophils (%) (Auto) 1 0-10 % Neutrophils # (Auto) 6.5 1.8-7.8 X 10^3 Lymphocytes # (Auto) 3.2 1.0-4.0 X 10^3 Monocytes # (Auto) 1.0 0.0-1.0 X 10^3 Eosinophils # (Auto) 0.2 0.0-0.3 10^3/uL Basophils # (Auto) 0.1 0.0-0.1 10^3/uL Prothrombin Time 12.9 12.2-14.7 SEC INR Comment 1.0 0.8-1.4 Activated Partial Thromboplast Time 24 24-35 SEC Urine Color YELLOW Urine Clarity CLEAR Urine pH 6 5-9 Urine Specific [place] 1.025 H 1.016-1.022 Urine Protein 1+ H NEGATIVE Urine Glucose (UA) NEGATIVE NEGATIVE Urine Ketones NEGATIVE NEGATIVE Urine Nitrite NEGATIVE NEGATIVE Urine Bilirubin NEGATIVE NEGATIVE Urine Urobilinogen NORMAL NORMAL MG/DL Urine Leukocyte Esterase NEGATIVE NEGATIVE Urine RBC (Auto) NEGATIVE NEGATIVE Urine RBC NONE /HPF Urine WBC RARE /HPF Urine Crystals NONE /LPF Urine Bacteria NEGATIVE /HPF Urine Casts NONE /LPF Urine Mucus NEGATIVE /LPF Urine Culture Indicated NO Sodium Level 138 135-145 MMOL/L Potassium Level 4.1 3.6-5.0 MMOL/L Chloride Level 106 98-107 MMOL/L Carbon Dioxide Level 19 L 21-32 MMOL/L Anion Gap 13 5-14 MMOL/L Blood Urea Nitrogen 16 7-18 MG/DL Creatinine 0.80 0.60-1.30 MG/DL Estimat Glomerular Filtration Rate > 60 BUN/Creatinine Ratio 20 Glucose Level 142 H 70-105 MG/DL Calcium Level 9.2 8.5-10.1 MG/DL Magnesium Level 2.4 1.8-2.4 MG/DL Total Bilirubin 0.2 0.1-1.0 MG/DL Aspartate Amino Transf (AST/SGOT) 51 H 5-34 U/L Alanine Aminotransferase (ALT/SGPT) 87 H 0-55 U/L Alkaline Phosphatase 138 H 40-136 U/L Myoglobin 44.0 10.0-92.0 NG/ML Troponin I < 0.30 <0.30 NG/ML Total Protein 7.4 6.4-8.2 GM/DL Albumin 4.6 H 3.2-4.5 GM/DL TSH [place] Testing 1.41 0.35-4.94 UIU/ML Urine Opiates Screen NEGATIVE NEGATIVE Urine Oxycodone Screen NEGATIVE NEGATIVE Urine Methadone Screen NEGATIVE NEGATIVE Urine Propoxyphene Screen NEGATIVE NEGATIVE Urine Barbiturates Screen NEGATIVE NEGATIVE Valproic Acid (Depakene) Level 44.8 L 50.0-100.0 UG/ML Ur Tricyclic Antidepressants Screen POSITIVE H NEGATIVE Urine Phencyclidine Screen NEGATIVE NEGATIVE Urine Amphetamines Screen NEGATIVE NEGATIVE Urine Methamphetamines Screen NEGATIVE NEGATIVE Urine Benzodiazepines Screen NEGATIVE NEGATIVE Urine Cocaine Screen NEGATIVE NEGATIVE Urine Cannabinoids Screen NEGATIVE NEGATIVE Serum Alcohol < 10 <10 MG/DL My Orders Orders - STANISLAV JOE MD Cbc With Automated Diff (03/30/18 21:04) Magnesium (03/30/18 21:04) Chest 1 View, Ap/Pa Only (03/30/18 21:04) Ekg Tracing (03/30/18 21:04) Cardiac Profile 1 (03/30/18 21:04) Comprehensive Metabolic Panel (03/30/18 21:04) Myoglobin Serum (03/30/18 21:04) Protime With Inr (03/30/18 21:04) Partial Thromboplastin Time (03/30/18 21:04) O2 (03/30/18 21:04) Monitor-Rhythm Ecg Trace Only (03/30/18 21:04) Saline Lock/Iv-Start (03/30/18 21:04) Alcohol (03/30/18 21:04) Drug Screen Stat (Urine) (03/30/18 21:04) Thyroid Analyzer (03/30/18 21:10) Ua Culture If Indicated (03/30/18 21:10) Valproic Acid (03/30/18 21:10) Vital Signs/I&O Capillary Refill : Less Than 3 Seconds Blood Pressure Mean: 98 Progress Note : Progress Note Workup was unremarkable. Patient remained alert and oriented throughout the ER stay and dulled cognition improved. The exact cause of his symptoms is uncertain but may be related to an atypical seizure. Close follow-up with his primary care provider and neurologist was recommended. ECG Initial ECG Impression Date: March 30, 2018 Initial ECG Impression Time: 21:39 Initial ECG Rate: 86 Initial ECG Rhythm: Normal Sinus Initial ECG Intervals: Normal Initial ECG Impression: Normal Comment Normal sinus rhythm with no ST elevation or depression. No abnormal intervals or axis deviation. Diagnostic Imaging Diagonstic Imaging: Xray Plain Films/CT/US/NM/MRI: chest Comments Chest x-ray viewed by me and report reviewed. See report below: NAME: SD [facility] REC#: [id number] PT STATUS: REG ER : 1995 PHYSICIAN: STANISLAV JOE MD ADMIT DATE: 03/30/18/ER Signed Date of Exam: 03/30/18 CHEST 1 VIEW, AP/PA ONLY INDICATION: No history available. FINDINGS: The lungs are clear. The heart and vessels normal. There is no effusion or pneumothorax. IMPRESSION: Negative. Dictated by: Dictated on workstation # [id number] Dict: 03/30/182131 Trans: 03/30/182201 Interpreted by: SRUTHI YBARRA Electronically signed by: SRUTHI YBARRA 03/30/182201 Departure Impression Primary Impression: Altered mental status Qualified Codes: R41.82 - Altered mental status, unspecified Additional Impressions: Palpitations Chest discomfort Seizure disorder Elevated liver enzymes Disposition: HOME, SELF-CARE Condition: Improved Departure-Patient Inst. Decision time for Depature: 22:40 Referrals: [facility] ([place]P/Family) Primary Care Physician Patient Instructions: Palpitations Add. Discharge Instructions: Continue your current medications as prescribed. Follow-up with your neurologist as soon as possible. Return to the emergency room if symptoms worsen. Follow up with your primary care provider soon as possible. Discuss the possibility of a cardiac workup including quality assurance monitor final to evaluate your palpitations. Have your liver markers monitored by your primary care provider. Communicate your low Depakote level with your neurologist. All discharge instructions reviewed with patient and/or family. Voiced understanding. Copy Copies To 1: JOCELYNN POE JOSHUA T MD March 30, 2018 22:42
[2018-03-30 22:47] VITALS: BP 139/89
== END 2018-03-30 22:47 | disposition home or self-care (01) ==
LOC: EDUNIT# 19:15 → ER 19:18
DX: R41.82 Altered mental status, unspecified (principal); R00.2 Palpitations; R07.89 Other chest pain; G40.909 Epilepsy, unspecified, not intractable, without status epilepticus; R94.5 Abnormal results of liver function studies; K21.9 Gastro-esophageal reflux disease without esophagitis; F41.9 Anxiety disorder, unspecified; F17.290 Nicotine dependence, other tobacco product, uncomplicated; Z88.0 Allergy status to penicillin
CPT/HCPCS: 36415; 71045; 80053; 80164; 80306; 80320; 81000; 83735; 83874; 84443; 84484; 85025; 85610; 85730; 93005; 93041

== ENCOUNTER 2018-04-13 14:59 | Emergency (ER) | payer OTHER ==
[~2018-04-13] VITALS: Ht 195.6 cm; Wt 133.8 kg
[~2018-04-13 14:59] MED LIST: DIVA500T7; LEVE500T76; LEVO5TAB12; PANT40SU PO; PSEU60TA20
--- OUTSIDE RECORDS SUMMARY | 2018-04-13 15:09 | XMS REPORT | Continuity of Care Document ---
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 fraction) 42 % 40-54 Automated erythrocyte mean corpuscular volume 88 [foz_us] 80-99 Automated erythrocyte mean corpuscular hemoglobin (mass per erythrocyte) 31 pg 25-34 Automated erythrocyte mean corpuscular hemoglobin concentration measurement ( mass/volume) 35 g/dL 32-36 Automated erythrocyte distribution width ratio 12.2 % 10.0-14.5 Automated blood platelet count (count/volume) 302 10*3/uL 130-400 Automated blood platelet mean volume measurement 10.3 [foz_us] 7.4-10.4 Automated blood neutrophils/100 leukocytes 59 % 42-75 Automated blood lymphocytes/100 leukocytes 29 % 12-44 Blood monocytes/100 leukocytes 9 % 0-12 Automated blood eosinophils/100 leukocytes 2 % 0-10 Automated blood basophils/100 leukocytes 1 % 0-10 Blood neutrophils automated count (number/volume) 6.5 10*3 1.8-7.8 Blood lymphocytes automated count (number/volume) 3.2 10*3 1.0-4.0 Blood monocytes automated count (number/volume) 1.0 10*3 0.0-1.0 Automated eosinophil count 0.2 10*3/uL 0.0-0.3 Automated blood basophil count (count/volume) 0.1 10*3/uL 0.0-0.1 PT panel in platelet poor plasma by coagulation assay - 03/30/18 21:35 Prothrombin time (PT) in platelet poor plasma by coagulation assay 12.9 s 12.2-14.7 INR in platelet poor plasma or blood by coagulation assay 1.0 0.8-1.4 Complete urinalysis with reflex to culture - 03/30/18 21:35 Urine color determination YELLOW NRG Urine clarity determination CLEAR NRG Urine pH measurement by test strip 6 5-9 Specific gravity of urine by test strip 1.025 1.016- 1.022 Urine protein assay by test strip, semi-quantitative 1+ NEGATIVE Urine glucose detection by automated test strip NEGATIVE NEGATIVE Erythrocytes detection in urine sediment by light microscopy NEGATIVE NEGATIVE Urine ketones detection by automated test strip NEGATIVE NEGATIVE Urine nitrite detection by test strip NEGATIVE NEGATIVE Urine total bilirubin detection by test strip NEGATIVE NEGATIVE Urine urobilinogen measurement by automated test strip (mass/volume) NORMAL NORMAL Urine leukocyte esterase detection by dipstick NEGATIVE NEGATIVE Automated urine sediment erythrocyte count by microscopy (number/high power field) NONE NRG Automated urine sediment leukocyte count by microscopy (number/high power field ) RARE NRG Bacteria detection in urine sediment by light microscopy NEGATIVE NRG Crystals detection in urine sediment by light microscopy NONE NRG Casts detection in urine sediment by light microscopy NONE NRG Mucus detection in urine sediment by light microscopy NEGATIVE NRG Complete urinalysis with reflex to culture NO NRG Activated partial thromboplastin time (aPTT) in platelet poor plasma bycoagulation assay - 03/30/18 21:35 Activated partial thromboplastin time (aPTT) in platelet poor plasma bycoagulation assay 24 s 24-35 Comprehensive metabolic panel - 03/30/18 21:35 Serum or plasma sodium measurement (moles/volume) 138 mmol/L 135-145 Serum or plasma potassium measurement (moles/volume) 4.1 mmol/L 3.6-5.0 Serum or plasma chloride measurement (moles/volume) 106 mmol/L 98-107 Carbon dioxide 19 mmol/L 21-32 Serum or plasma anion gap determination (moles/volume) 13 mmol/L 5-14 Serum or plasma urea nitrogen measurement (mass/volume) 16 mg/dL 7-18 Serum or plasma creatinine measurement (mass/volume) 0.80 mg/dL 0.60-1.30 Serum or plasma urea nitrogen/creatinine mass ratio 20 NRG Serum or plasma creatinine measurement with calculation of estimated glomerular filtration rate > NRG Serum or plasma glucose measurement (mass/volume) 142 mg/dL 70-105 Serum or plasma calcium measurement (mass/volume) 9.2 mg/dL 8.5-10.1 Serum or plasma total bilirubin measurement (mass/volume) 0.2 mg/dL 0.1-1.0 Serum or plasma alkaline phosphatase measurement (enzymatic activity/volume) 138 U/L 40-136 Serum or plasma aspartate aminotransferase measurement (enzymatic activity/ volume) 51 U/L 5-34 Serum or plasma alanine aminotransferase measurement (enzymatic activity/volume ) 87 U/L 0-55 Serum or plasma protein measurement (mass/volume) 7.4 g/dL 6.4-8.2 Serum or plasma albumin measurement (mass/volume) 4.6 g/dL 3.2-4.5 Magnesium - 03/30/18 21:35 Magnesium 2.4 mg/dL 1.8-2.4 Urine drug screening test - 03/30/18 21:35 Urine phencyclidine detection by screening method NEGATIVE NEGATIVE Urine benzodiazepines detection by screening method NEGATIVE NEGATIVE Urine cocaine detection NEGATIVE NEGATIVE Urine amphetamines detection by screening method NEGATIVE NEGATIVE Urine methamphetamine detection by screening method NEGATIVE NEGATIVE Urine cannabinoids detection by screening method NEGATIVE NEGATIVE Urine opiates detection by screening method NEGATIVE NEGATIVE Urine barbiturates detection NEGATIVE NEGATIVE Screening urine tricyclic antidepressants detection POSITIVE NEGATIVE Urine methadone detection by screening method NEGATIVE NEGATIVE Urine oxycodone detection NEGATIVE NEGATIVE Urine propoxyphene detection NEGATIVE NEGATIVE Serum or plasma thyrotropin measurement by detection limit <=0.05 miu/l (units/ volume) - 03/30/18 21:35 Serum or plasma thyrotropin measurement by detection limit <=0.05 miu/l (units/ volume) 1.41 u[iU]/mL 0.35-4.94 [id number] - 03/30/18 21:35 [id number] 44.8 ug/mL 50.0-100.0 Serum or plasma troponin i.cardiac measurement (mass/volume) - 03/30/18 21:35 Serum or plasma troponin i.cardiac measurement (mass/volume) < ng/ mL <0.30 Serum or plasma ethanol measurement (mass/volume) - 05/08/18 21:35 Serum or plasma ethanol measurement (mass/volume) < mg/dL <10 Myoglobin, serum - 03/30/18 21:35 Myoglobin, serum 44.0 ng/mL 10.0-92.0 Encounters ACCT No. Visit Date/Time Discharge Status Pt. Type Provider Facility Loc./Unit Complaint [id number] 02/26/2015 08:30:00 02/26/2015 23:59:59 CLS Outpatient JOCELYNN POE DO [id number] 12/01/2014 12:19:00 12/01/2014 23:59:59 CLS Outpatient ARMANI KEITH APRN [id number] 10/28/2014 12:12:00 10/28/2014 23:59:59 CLS Outpatient JOCELYNN POE DO [id number] 09/18/2014 12:53:00 09/18/2014 23:59:59 CLS Outpatient JOCELYNN POE DO [id number] 09/18/2014 12:09:00 09/18/2014 23:59:59 CLS Outpatient ANTON MERINO APRN [id number] 09/14/2014 09:30:00 09/14/2014 23:59:59 CLS Outpatient THANIA WEBB MD [id number] 07/19/2014 15:33:00 07/19/2014 23:59:59 CLS Outpatient THANIA WEBB MD [id number] 07/11/2014 16:23:00 07/11/2014 23:59:59 CLS Outpatient ARMANI KEITH APRN [id number] 06/28/2014 18:07:00 06/28/2014 23:59:59 CLS Outpatient ARMANI KEITH APRN [id number] 05/31/2014 18:23:00 05/31/2014 23:59:59 CLS Outpatient THANIA WEBB MD [id number] 01/06/2014 10:43:00 01/06/2014 23:59:59 CLS Outpatient AMI CHAN APRN [id number] 11/28/2013 15:19:00 11/28/2013 23:59:59 CLS Outpatient THANIA WEBB MD [id number] 11/14/2013 10:21:00 11/14/2013 23:59:59 CLS Outpatient JOCELYNN POE DO [id number] 11/14/2013 08:35:00 11/14/2013 23:59:59 CLS Outpatient THANIA WEBB MD [id number] 10/11/2013 08:28:00 10/11/2013 23:59:59 CLS Outpatient JOCELYNN POE DO [id number] 06/08/2013 17:58:00 06/08/2013 23:59:59 CLS Outpatient JOCELYNN POE DO [id number] 02/18/2013 08:58:00 02/18/2013 23:59:59 CLS Outpatient [id number] 12/06/2012 13:31:00 12/06/2012 23:59:59 CLS Outpatient THANIA WEBB MD [id number] 11/12/2012 13:13:00 11/12/2012 23:59:59 CLS Outpatient THANIA WEBB MD [id number] 10/25/2012 09:18:00 10/25/2012 23:59:59 [place] [id number] 09/17/2012 14:59:00 09/17/2012 23:59:59 CLS Outpatient THANIA WEBB MD [id number] 05/12/2013 09:42:00 Document Registration [id number] 05/05/2013 11:41:00 Document Registration [id number] 05/02/2013 10:33:00 Document Registration [id number] 04/07/2013 13:58:00 Document Registration [id number] 03/30/2018 19:18:00 03/30/2018 22:47:00 DIS Outpatient HEATH GÓMEZ, STANISLAV Doss [facility] ER POSSIBLE ANXIETY [id number] 03/25/2018 08:20:00 03/25/2018 23:59:59 CLS Outpatient ARMANI KEITH APRN [facility]
[2018-04-13] MEDS ORDERED: PROP10TA8 PO (16:00)
[2018-04-13] MEDS ORDERED: FEXO-14 PO (16:00)
[2018-04-13] MEDS ORDERED: NORT10CA PO (16:00)
--- NOTE | 2018-04-13 16:22 | ED General ---
General Chief Complaint: Respiratory Problems Stated Complaint: POSS ALLERGIC REACTION/SOA Nursing Triage Note: PATIENT STATES THAT LAST NIGHT AFTER WORK HIS THROAT HURT. IT WAS WRSE THIS MORNIGN SO HE CALED INTO WORK. HE WOKE UP FROM A [place] THIS AFTERNOON AND STATES TAHT IT FELT LIKE HIS "THROAT WAS SWELLING UP." HE STATES HE WAS WHEEZING AND COUGHED UP PHELGM WITH BLOODY STREAKS. HE HAS BEEN USING PROAIR FOR THE LAST HOUR AND DENIES STRUGGLING TO BREATHE AT THIS TIME. Nursing Sepsis Screen: No Definite Risk Source of Information: Patient Exam Limitations: No Limitations History of Present Illness Date Seen by Provider: April 13, 2018 Time Seen by Provider: 15:07 Initial Comments Patient presents to the emergency room with fear that he is having some type of allergic reaction. He reports having swollen and sore throat today. He was also having some difficulty breathing. He noted some wheezing. He does have history of bronchitis and he is a smoker. He contacted staff at [facility] who prompted him to use his inhaler and present for evaluation. Patient states inhaler has helped significantly with the shortness of air. He still feels like his throat is swollen and sore. He is afebrile. He denies any itching or rash. Patient reports he has had multiple cases of strep pharyngitis in the past and is considered a carrier. He has used a variety of antibiotics to treat strep infections. Allergies and Home Medications Allergies Coded Allergies: Cephalosporins (Verified Allergy, Unknown, 03/30/18) Penicillins (Verified Allergy, Unknown, 03/30/18) Home Medications Pantoprazole Sodium 40 Mg , 40 MG PO DAILY, (Reported) Propranolol HCl Unknown Strength Tablet, Unknown Dose PO BID, (Reported) Patient Home Medication List Home Medication List Reviewed: Yes Review of Systems Constitutional: no symptoms reported EENTM: see HPI Respiratory: see HPI Cardiovascular: no symptoms reported Gastrointestinal: no symptoms reported Genitourinary: no symptoms reported Musculoskeletal: no symptoms reported Skin: no symptoms reported Psychiatric/Neurological: No Symptoms Reported Hematologic/Lymphatic: No Symptoms Reported Immunological/Allergic: no symptoms reported Past Gcojzbc-Yxnisc-Ullcvb Hx Patient Social History Alcohol Use: Denies Use Recreational Drug Use: No Smoking Status: Current Everyday Smoker Type Used: Electronic/Vapor 2nd Hand Smoke Exposure: Yes Recent Foreign Travel: No Contact w/Someone Who Travel: No Recent Infectious Disease Expo: No Recent Hopitalizations: No Physical Abuse: No Sexual Abuse: No Immunizations Up To Date Tetanus Booster (TDap): Unknown Seasonal Allergies Seasonal Allergies: Yes Past Medical History Surgeries: No Respiratory: Yes (ASTHMA A KID, episodes of bronchitis) Asthma Cardiac: No Neurological: Yes Seizure Disorder Genitourinary: No Gastrointestinal: Yes Gastroesophageal Reflux Musculoskeletal: No Endocrine: No HEENT: No Cancer: No Psychosocial: Yes Anxiety Nursing Suicide Risk Score: 0 Integumentary: No Blood Disorders: No Physical Exam Vital Signs Vital Signs - First Documented 04/13/18 15:01 Temp 97.1 Pulse 89 Resp 18 B/P (MAP) 138/99 (112) Pulse Ox 99 Capillary Refill : Less Than 3 Seconds General Appearance: No Apparent Distress, WD/WN HEENT: PERRL/EOMI, TMs Normal, Normal ENT Inspection, Tonsillar Enlargement Neck: Normal Inspection, Supple Respiratory: Lungs Clear, Normal Breath Sounds, No Accessory Muscle Use, No Respiratory Distress Cardiovascular: Regular Rate, Rhythm, No Edema, No Murmur Gastrointestinal: Non Tender, Soft Extremity: Normal Inspection, No Pedal Edema Neurologic/Psychiatric: Alert, Oriented x3, No Motor/Sensory Deficits, thread clipper II- XII Norm as Tested, Other (Mildly anxious) Skin: Normal Color, Warm/Dry; No Rash Progress/Results/Core Measures Suspected Sepsis Recent Fever Within 48 Hours: No Infection Criteria Present: Suspected New Infection New/Unexplained Altered Menta: No Sepsis Screen: No Definite Risk SIRS Temperature:97.1 Pulse: 89 Respiratory Rate: 18 Blood Pressure 138 /99 Mean: 112 Results/Orders Lab Results Laboratory Tests Test 04/13/18 15:19 Range/Units Group A Streptococcus Screen NEGATIVE NEGATIVE Micro Results Microbiology 04/13/18 Throat Culture - Preliminary, Resulted No Beta Strep isolated My Orders Orders - STANISLAV JOE MD Rapid Strep A Screen (04/13/18 15:22) Vital Signs/I&O Capillary Refill : Less Than 3 Seconds Blood Pressure Mean: 112 Progress Note : Progress Note Rapid strep test was negative. Departure Impression Primary Impression: Dyspnea Qualified Codes: R06.00 - Dyspnea, unspecified Additional Impression: Sore throat Disposition: 01 HOME, SELF-CARE Condition: Improved Departure-Patient Inst. Decision time for Depature: 16:10 Referrals: [facility] (PCP/Family) Primary Care Physician Patient Instructions: Sore Throat in Adults Add. Discharge Instructions: Discontinue smoking completely as soon as possible. You may continue to use your inhaler up to 4 puffs and a four-hour period of time as needed for wheezing and shortness of breath. Please follow-up with your primary care provider within the next couple of weeks. Return to care more promptly if you have worsening symptoms. If your suspicious allergies may be contributing to your symptoms, try an over- the-counter allergy medication such as Claritin (loratadine) or Zyrtec ( cetirizine). A throat culture will be performed as a backup to your rapid strep test. Results should be available by Thursday morning. You may contact your doctor or the ER to obtain results. All discharge instructions reviewed with patient and/or family. Voiced understanding. STANISLAV JOE MD April 13, 2018 16:22
[2018-04-13 16:44] VITALS: BP 138/99
== END 2018-04-13 16:43 | disposition home or self-care (01) ==
LOC: EDUNIT# 14:59 → ER 15:01
DX: R06.00 Dyspnea, unspecified (principal); J02.9 Acute pharyngitis, unspecified; J45.909 Unspecified asthma, uncomplicated; G40.909 Epilepsy, unspecified, not intractable, without status epilepticus; K21.9 Gastro-esophageal reflux disease without esophagitis; F41.9 Anxiety disorder, unspecified; F17.210 Nicotine dependence, cigarettes, uncomplicated; Z88.0 Allergy status to penicillin; Z88.5 Allergy status to narcotic agent
CPT/HCPCS: 87430; 99282

== ENCOUNTER 2018-04-28 05:36 | Outpatient (CLI) | payer OTHER ==
[~2018-04-28] VITALS: Ht 195.6 cm; Wt 133.8 kg
[~2018-04-28 05:36] MED LIST changes: +FEXO-14 PO; +NORT10CA PO; +PROP10TA8 PO
[2018-04-28] MEDS ORDERED: DIVA500T PO (13:25)
[2018-04-28] MEDS ORDERED: FEXO-46 PO (13:36)
[2018-04-28] MEDS ORDERED: PANT20TA3 PO (13:36)
[2018-04-28] MEDS ORDERED: NORT25CA PO (13:36)
== END 2018-04-28 13:42 ==
LOC: PREOP 05:36
PROVIDERS: ATTEND Otolaryngology Otolaryngology/Facial Plastic Surgery
DX: Z01.818 Encounter for other preprocedural examination (principal)

== ENCOUNTER 2018-04-30 06:59 | Day surgery (SDC) | payer OTHER ==
[~2018-04-30] VITALS: Ht 190.5 cm; Wt 133.8 kg
[~2018-04-30 06:59] MED LIST changes: +DIVA500T PO; +FEXO-46 PO; +NORT25CA PO; +PANT20TA3 PO
[2018-04-30 07:10] VITALS: BP 141/93
[2018-04-30] MEDS: LACTATED RINGERS 1,000 ML IV PRN ×2 (07:30→09:00)
[2018-04-30] MEDS ORDERED: FAMOTIDINE 20MG/2ML IV (PEPCID) IV ONE (08:00)
--- NOTE | 2018-04-30 08:16 | Progress Note-Pre Operative ---
Pre-Operative Progress Note H&P Reviewed The H&P was reviewed, patient examined and no changes noted. Date Seen by Provider: Apr 30, 2018 Time Seen by Provider: 08:00 Date H&P Reviewed: Apr 30, 2018 Time H&P Reviewed: 08:00 Pre-Operative Diagnosis: t/a hyper with uas, rec tons JHONNY KAUR MD Apr 30, 2018 8:16 am
[2018-04-30] MEDS ORDERED: proPOfol 200 MG/20 ML (DIPRIVAN) VIAL IV ONE ×2 (08:31→09:46)
[2018-04-30] MEDS ORDERED: fentaNYL INJECTION 100 MCG/2 ML AMP ONE (08:31)
[2018-04-30] MEDS ORDERED: MIDAZOLAM 2 MG/2 ML (VERSED) VIAL ONE (08:31)
[2018-04-30] MEDS ORDERED: DEXAMETHASONE 10 MG/ML (DECADRON) 1 ML VIAL ONE (08:31)
[2018-04-30] MEDS ORDERED: ONDANSETRON 4 MG/2 ML (SDV) Z0FRAN ONE (08:31)
[2018-04-30] MEDS ORDERED: LIDOCAINE PF 2% 5 ML (XYLOCAINE) VIAL ONE (08:31)
[2018-04-30] MEDS ORDERED: SEVOFLURANE (ULTANE) 15 ML INHAL SOLN ONE ×2 (08:31→09:46)
[2018-04-30] MEDS ORDERED: NS IV 1000 ML 1,000 ML IV SCH (09:31)
--- NOTE | 2018-04-30 09:31 | Progress Note-Post Operative ---
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 Specimen(s) collected/removed tonsils JHONNY KAUR MD Apr 30, 2018 9:31 am
[2018-04-30] MEDS ORDERED: morphine INJ 10 MG/ML 1ML (SYR OR VIAL) ONE (09:37)
[2018-04-30] MEDS ORDERED: HYDROcodone/APAP 7.5MG-325 MG/15 ML (LORTAB) UDC PO PRN (09:45)
[2018-04-30] MEDS ORDERED: APAP 325 MG/10.15 ML LIQ (TYLENOL) UDC PO PRN (09:45)
[2018-04-30] MEDS ORDERED: SUCCINYLCHOLINE INJ 100 MG/5 ML SYR ONE (09:46)
[2018-04-30] MEDS ORDERED: KETOROLAC 30 MG/ML VIAL ONE (09:47)
--- NOTE | 2018-04-30 10:15 | Anesthesia-General Post-Op ---
General Patient Condition Mental Status/LOC: Same as Preop Cardiovascular: Satisfactory Nausea/Vomiting: Absent Respiratory: Satisfactory Pain: Controlled Complications: Absent Post Op Complications Complications None Follow Up Care/Instructions Patient Instructions None needed. Anesthesia/Patient Condition Patient Condition Patient is doing well, no complaints, stable vital signs, no apparent adverse anesthesia problems. No complications reported per nursing. D/C home per [facility] Criteria: Yes RADHA PIMENTEL CRNA Apr 30, 2018 10:15
[2018-04-30 10:35] VITALS: BP 127/74
[2018-04-30 11:05] VITALS: BP 131/87
[2018-04-30 11:35] VITALS: BP 145/78
[2018-04-30] MEDS ORDERED: AZIT200S47 PO (12:44)
[2018-04-30] MEDS ORDERED: HYDR15SO8 PO (12:44)
[2018-04-30] MEDS ORDERED: TETRACAINESUCKERS MT (12:44)
[2018-04-30] MEDS ORDERED: DEXAINTSOL PO (12:44)
[2018-04-30 13:15] VITALS: BP 145/78
== END 2018-04-30 13:15 | disposition home or self-care (01) ==
LOC: SDC 06:59
PROVIDERS: ATTEND Otolaryngology Otolaryngology/Facial Plastic Surgery
DX: J35.01 Chronic tonsillitis (principal); R56.9 Unspecified convulsions; Z79.899 Other long term (current) drug therapy
CPT/HCPCS: 87081; 88304

== ENCOUNTER 2019-01-06 08:02 | Outpatient (RCR) | payer OTHER ==
[~2019-01-06 08:02] MED LIST changes: +AZIT200S47 PO; +DEXAINTSOL PO; +DIVA-76; -DIVA500T7; +HYDR15SO8 PO; -LEVE500T76; +LEVE500T95; +TETRACAINESUCKERS MT
== END 2019-04-06 | disposition home or self-care (01) ==
LOC: CARD 08:02
PROVIDERS: ATTEND Family Medicine
DX: G40.A09 Absence epileptic syndrome, not intractable, without status epilepticus (principal)
CPT/HCPCS: 93225; 93226

== ENCOUNTER 2020-02-01 16:00 | Emergency (ER) | payer SELFPAY ==
[~2020-02-01] VITALS: Ht 190 cm; Wt 127.0 kg
[~2020-02-01 16:00] MED LIST changes: -NORT10CA PO; +NRT10C PO; -PSEU60TA20; +PSEU60TA21
[2020-02-01] MEDS ORDERED: [UNRECOGNIZED DRUG - REMARK] (16:28)
[2020-02-01] MEDS ORDERED: PRD10T (16:28)
--- NOTE | 2020-02-01 16:29 | NUR ---
TAKING MUCINEX AND CHLORTABS OTC MED. STATES TAKES EYE GTTS AND NOSE SPRAY
--- NOTE | 2020-02-01 16:34 | ED Cough/URI ---
General Chief Complaint: Cough/Cold/Flu Symptoms Stated Complaint: FEVER, COUGH, BODY ACHES Nursing Triage Note: PT TO ED FROM [facility] HAS HAD FEVER, COUGH, SORE THROAT AND BODY ACHES FOR APPROX 2 WEEKS, WAS SEEN BY DR RIBEIRO AT [facility] ON THURSDAY AND PRESCRIBED PREDNISONE AND ZYZOL. HAS HAD INTERMITTENT FEVER. HAD VISIT BY MOTHER IN LAW ON 01/05/2020-01/08/2020 MOTHER IN LAW FROM [facility]. PT STATES HAS SOME SOA Sepsis Screen: No Definite Risk Source: patient History of Present Illness Date Seen by Provider: Feb 01, 2020 Time Seen by Provider: 16:00 Initial Comments PT ARRIVES VIA POV--DROVE HIMSELF HERE FROM WORK, WHERE HE HAS BEEN ALL DAY AND ALL WEEK PT REPORTEDLY WAS SENT HERE BY THE HEALTH DEPT FOR POSSIBLE CORONAVIRUS PT STATES HE HAS BEEN SICK FOR ABOUT 12-14 DAYS WITH "SINUS INFECTION" SYMPTOMS--INITIALLY HAD A LOW GRADE SUBJECTIVE FEVER, SORE THROAT, BODY ACHES SINUS PRESSURE, NASAL CONGESTION AND COLORED DRAINAGE, ALONG WITH A PRODUCTIVE COUGH WITH YELLOW-GREEN SPUTUM. HAS NOT HAD FEVER IN OVER A WEEK NO LONGER HAS A SORE THROAT STILL WITH BODY ACHES AND SWEATS STATES HE FELT A LITTLE SHORT OF BREATH LAST NIGHT, AND HAS A HISTORY OF ASTHMA, BUT HAS NOT USED AN INHALER IN A LONG TIME, AND COULD NOT FIND HIS OLD INHALER. DOES NOT FEEL SHORT OF BREATH NOW NO CHEST PAIN WENT TO SEE DR. RIBEIRO ON THURSDAY FOR THESE SYMPTOMS, AND WAS GIVEN RX FOR PREDNISONE AND ZYZAL. ALL FAMILY MEMBERS ARE ILL WITH SORE THROATS, AND MILDER SYMPTOMS PT'S GIRLFRIEND'S MOTHER CAME "JUST TO VISIT" LAST MONTH--WAS HERE FROM 01/05- 01/08/20 VISITING FROM [facility] ( IN AN [place] TO HIGH NUMBER OF ZHANG VIRUS CASES) SHE WAS SICK WITH COLD SYMPTOMS--COUGH, CONGESTION AND FEVER --WAS SICK BEFORE SHE LEFT [place]--HAD BEEN SICK SINCE AROUND THE FIRST OF DECEMBER. SHE WAS SICK THE ENTIRE TIME SHE WAS HERE. SHE WAS NOT TESTED FOR ANYTHING. ALL PT'S FAMILY ARE NOW ILL, AND THEY HAVE "SELF QUARANTINED" THEMSELVES, AND ONLY HAVE MILD SYMPTOMS PT HAS CONTINUED TO WORK EVERY DAY THROUGHOUT ILLNESS PT CALLED HIS MOTHER TODAY, AND INFORMED HER OF THE ABOVE, WHO THEN CALLED THE HEALTH DEPARTMENT, AND TOLD PT TO COME HERE. PT WAS NOT SEEN BY ANYONE AT THE HEALTH DEPT, ONLY TALKED TO THEM ON THE PHONE. PT STATES THAT MOST OF THE CONTACT WITH THE HEALTH DEPT WAS BY HIS MOTHER. PCP: DR. RIBEIRO Allergies and Home Medications Allergies Coded Allergies: Cephalosporins (Verified Allergy, Unknown, 03/30/18) Penicillins (Verified Allergy, Unknown, 03/30/18) aspirin (Verified Allergy, Unknown, 04/28/18) cephalexin (Verified Allergy, Unknown, 04/28/18) sulfamethoxazole (Verified Allergy, Unknown, 04/28/18) trimethoprim (Verified Allergy, Unknown, 04/28/18) Home Medications Divalproex Sodium 500 Mg Tablet.dr, 1,000 MG PO BID, (Reported) take 2 (500mg) tabs Doxycycline Hyclate 100 Mg Tablet, 100 MG PO BID Prescribed by: LYN NAVAS on 02/01/201736 Nortriptyline HCl 25 Mg Capsule, 25 MG PO HS, (Reported) Pantoprazole Sodium 20 Mg Tablet.dr, 20 MG PO DAILY, (Reported) Prednisone 10 Mg Tab, 10 MG DAILY, (Reported) Triamcinolone Acetonide 10.8 Ml Riga, 2 SPRAYS NS BID Prescribed by: LYN NAVAS on 02/01/201736 Patient Home Medication List Home Medication List Reviewed: Yes Review of Systems Review of Systems Constitutional: see HPI, diaphoresis, fever EENTM: see HPI, nose congestion, throat pain Respiratory: see HPI, cough, phlegm, short of breath (VERY MILD YESTERDAY, NOT TODAY ); No wheezing Cardiovascular: no symptoms reported; No chest pain Gastrointestinal: no symptoms reported Genitourinary: no symptoms reported Musculoskeletal: see HPI (BODY ACHES) Skin: no symptoms reported Psychiatric/Neurological: No Symptoms Reported; Denies Headache Hematologic/Lymphatic: No Symptoms Reported Immunological/Allergic: no symptoms reported Past Qzpeizd-[id number]-[id number] Hx Past Med/Social Hx: Reviewed and Corrections made Patient Social History Smoking Status: Former Smoker Type Used: Cigarettes, Electronic/Vapor Former Smoker, Quit: Nov 23, 2017 2nd Hand Smoke Exposure: Yes Recent Foreign Travel: No Contact w/Someone Who Travel: No Recent Infectious Disease Expo: Yes (POSSIBLE) Recent Hopitalizations: No Immunizations Up To Date Tetanus Booster (TDap): Unknown Seasonal Allergies Seasonal Allergies: Yes Past Medical History Surgeries: No Respiratory: Yes (ASTHMA A KID, episodes of bronchitis) Asthma Cardiac: No Neurological: Yes Seizure Disorder Reproductive Disorders: No Genitourinary: No Gastrointestinal: Yes Gastroesophageal Reflux Musculoskeletal: Yes Fractures Endocrine: No 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 0.0oz. [id number]; 35.00 BMI Method:Stated General Appearance: WD/WN, no apparent distress, other (PT IS VERY NON-CHALANT, CONSTANTLY TEXTING ON PHONE THROUGHOUT HISTORY AND EXAM, DOES NOT APPEAR ILL AT ALL, NO COUGH AT ANY TIME. NO DYSPNEA. ) HEENT: PERRL/EOMI, TMs normal, pharynx normal; No photophobia, No pharyngeal erythema, No tonsillar exudate; other (NASAL CONGESTION, MILD CLEAR POST NASAL DRAINAGE. 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, no motor/sensory deficits, alert, normal mood/affect, oriented x 3 Skin: normal color, warm/dry Progress/Results/Core Measures Suspected Sepsis Recent Fever Within 48 Hours: No Infection Criteria Present: Suspected New Infection New/Unexplained Altered Menta: No Sepsis Screen: No Definite Risk SIRS Temperature: Pulse: 96 Respiratory Rate: 18 Laboratory Tests 02/01/20 16:30: White Blood Count 7.7 Blood Pressure 149 /97 Mean: 114 Laboratory Tests 02/01/20 16:30: Creatinine 0.87, Platelet Count 214, Total Bilirubin 0.3 Results/Orders Lab Results Laboratory Tests Test 02/01/20 16:12 02/01/20 16:30 Range/Units Group A Streptococcus Screen NEGATIVE NEGATIVE White Blood Count 7.7 4.3-11.0 10^3/uL Red Blood Count 5.08 4.35-5.85 10^6/uL Hemoglobin 15.3 13.3-17.7 G/DL Hematocrit 45 40-54 % Mean Corpuscular Volume 89 80-99 FL Mean Corpuscular Hemoglobin 30 25-34 PG Mean Corpuscular Hemoglobin Concent 34 32-36 G/DL Red Cell Distribution Width 12.7 10.0-14.5 % Platelet Count 214 130-400 10^3/uL Mean Platelet Volume 11.3 H 7.4-10.4 FL Neutrophils (%) (Auto) 73 42-75 % Lymphocytes (%) (Auto) 22 12-44 % Monocytes (%) (Auto) 4 0-12 % Eosinophils (%) (Auto) 0 0-10 % Basophils (%) (Auto) 1 0-10 % Neutrophils # (Auto) 5.7 1.8-7.8 X 10^3 Lymphocytes # (Auto) 1.7 1.0-4.0 X 10^3 Monocytes # (Auto) 0.3 0.0-1.0 X 10^3 Eosinophils # (Auto) 0.0 0.0-0.3 10^3/uL Basophils # (Auto) 0.0 0.0-0.1 10^3/uL Sodium Level 138 135-145 MMOL/L Potassium Level 4.8 3.6-5.0 MMOL/L Chloride Level 104 98-107 MMOL/L Carbon Dioxide Level 24 21-32 MMOL/L Anion Gap 10 5-14 MMOL/L Blood Urea Nitrogen 11 7-18 MG/DL Creatinine 0.87 0.60-1.30 MG/DL Estimat Glomerular Filtration Rate > 60 BUN/Creatinine Ratio 13 Glucose Level 96 70-105 MG/DL Calcium Level 9.5 8.5-10.1 MG/DL Corrected Calcium 8.5-10.1 MG/DL Total Bilirubin 0.3 0.1-1.0 MG/DL Aspartate Amino Transf (AST/SGOT) 37 H 5-34 U/L Alanine Aminotransferase (ALT/SGPT) 81 H 0-55 U/L Alkaline Phosphatase 129 40-136 U/L Total Protein 7.3 6.4-8.2 GM/DL Albumin 4.7 H 3.2-4.5 GM/DL Monoscreen NEGATIVE NEGATIVE Micro Results Microbiology 02/01/20 Influenza Types A,B Antigen (LOI) - Final, Complete My Orders Orders - ELOISELYN Toledo DO Cbc With Automated Diff (02/01/20 16:20) Comprehensive Metabolic Panel (02/01/20 16:20) Monotest (02/01/20 16:20) Rapid Strep A Screen (02/01/20 16:20) Influenza A And B Antigens (02/01/20 16:20) Vital Signs/I&O 02/01/20 02/01/20 16:00 17:51 Temp 36.8 Pulse 96 83 Resp 18 18 B/P (MAP) 149/97 (114) 120/89 (114) Pulse Ox 99 99 O2 Delivery Room Air Capillary Refill : Less Than 3 Seconds Blood Pressure Mean: 114 Progress Note : Progress Note ALL CDC RECOMMENDED PRECAUTIONS TAKEN PRIOR TO AND IMMEDIATELY AFTER ENTERING PT'S ROOM. EDER PETERSON WITH INFECTION CONTROL, WAS HERE PRIOR TO AND THROUGHOUT PT'S ER STAY, TO ENSURE THAT PROPER TESTING WAS DONE AND PROTOCOLS WERE FOLLOWED. SHE MAINTAINED CONTACT WITH [facility] THROUGHOUT PT'S VISIT. VITALS ALL STABLE, O2 SATS 98-99% ON ROOM AIR NO COUGH OR DYSPNEA AT ANY TIME NO DETERIORATION IN PT'S CONDITION DURING ER STAY Diagnostic Imaging Comments CXR-- Departure Communication (Admissions) 1715--KRISTEN RN ON PHONE WITH TICKET DISPATCHER FROM [facility]. 1725-- I SPOKE WITH [facility] TICKET DISPATCHER WELL, AND HE AND I AGREE, THAT PT DOES NOT WARRANT ANY ADDITIONAL TESTING, PT'S SYMPTOMS ARE VERY MILD, PT HAS BEEN FEVER FREE FOR OVER A WEEK, AND PT'S GIRLFRIEND'S MOTHER DID NOT HAVE A CONFIRMED CASE OF CORONAVIRUS. OFFERED ADDITIONAL TESTING TO PT, AND HE DECLINES--DOES NOT FEEL THAT IT IS NECESSARY. [facility] TICKET DISPATCHER ON SPEAKER PHONE WITH PT DURING THIS CONVERSATION. PT STATES HE IS ONLY HERE BECAUSE HIS MOTHER MADE HIM COME HERE. Impression Primary Impression: Upper respiratory infection Disposition: HOME, SELF-CARE Condition: Stable Departure-Patient Inst. Referrals: [facility] (PCP/Family) Primary Care Physician Patient Instructions: Bacterial Upper Respiratory Infection, Adult (DC), Viral Upper Respiratory Infection, Adult (DC) Add. Discharge Instructions: HOME, REST TYLENOL 1 GRAM/ MOTRIN 800 MG 4 TIMES A DAY NEEDED FOR PAIN OR FEVER CONTINUE PREDNISONE PRESCRIBED, AND CONTINUE ZYZAL DAILY. FOLLOW UP WITH DR. RIBEIRO IN 4-5 DAYS IF NO BETTER, RETURN TO ER IF WORSE All discharge instructions reviewed with patient and/or family. Voiced understanding. Scripts Triamcinolone Acetonide (Nasacort) 10.8 Ml Riga 2 SPRAYS NS BID, #1 SPRAY Prov: LYN NAVAS DO 02/01/20 Doxycycline Hyclate (Doxycycline Hyclate) 100 Mg Tablet 100 MG PO BID, #30 TAB 0 Refills Prov: LYN NAVAS DO 02/01/20 LYN NAVAS DO Feb 01, 2020 16:34
[2020-02-01 16:43] LABS: BASOPHILS % (AUTO) 1 % (0-10); EOSINOPHILS % (AUTO) 0 % (0-10); HEMATOCRIT 45 % (40-54); HEMOGLOBIN 15.3 G/DL (13.3-17.7); LYMPHOCYTES # (AUTO) 1.7 X 10^3 (1.0-4.0); LYMPHOCYTES % (AUTO) 22 % (12-44); MEAN CORPUSCULAR HEMOGLOBIN 30 PG (25-34); MEAN CORPUSCULAR HGB CONC 34 G/DL (32-36); MEAN CORPUSCULAR VOLUME 89 FL (80-99); MEAN PLATELET VOLUME 11.3 FL (7.4-10.4); MONOCYTES # (AUTO) 0.3 X 10^3 (0.0-1.0); MONOCYTES % (AUTO) 4 % (0-12); NEUTROPHILS # (AUTO) 5.7 X 10^3 (1.8-7.8); NEUTROPHILS % (AUTO) 73 % (42-75); PLATELET COUNT 214 10^3/uL (130-400); RED CELL DISTRIBUTION WIDTH 12.7 % (10.0-14.5); WHITE BLOOD COUNT 7.7 10^3/uL (4.3-11.0)
[2020-02-01 17:06] LABS: ALANINE AMINOTRANSFERASE 81 U/L (0-55); ALBUMIN 4.7 GM/DL (3.2-4.5); ALKALINE PHOSPHATASE 129 U/L (40-136); BILIRUBIN,TOTAL 0.3 MG/DL (0.1-1.0); BUN/CREATININE RATIO 13; CALCIUM 9.5 MG/DL (8.5-10.1); CARBON DIOXIDE 24 MMOL/L (21-32); CHLORIDE 104 MMOL/L (98-107); CREATININE SERUM 0.87 MG/DL (0.60-1.30); GFR ESTIMATED > 60; GLUCOSE 96 MG/DL (70-105); POTASSIUM 4.8 MMOL/L (3.6-5.0); SODIUM 138 MMOL/L (135-145); TOTAL PROTEIN 7.3 GM/DL (6.4-8.2)
[2020-02-01] MEDS ORDERED: DOXY100T2 PO (17:37)
[2020-02-01] MEDS ORDERED: TRIA10.8 NS (17:37)
--- NOTE | 2020-02-01 17:47 | NUR ---
Notified prior to patient arrival that patient was suspect of Coronavirus. Patient instructed to wait in car and call hospital and notify us before coming in to get a mask. Patient presented to Registration. Registration handed him a mask and notified me. His chair he sat in was cleaned with Vyrox wipes. Patient was escorted to Room 10 and placed in isolation. After testing and history gathered, [facility] was called to screen for testing for Coronavirus. Due to Patient history and lack of symptoms consistent with Coronavirus it was determined this was not a suspected case of Coronavirus and did not require further testing. Patient notified of this by myself, Dr Rai and Nicko Miner from [facility] (on phone) Patient verbalized understanding and he did not want further testing.
[2020-02-01 17:51] VITALS: BP 120/89
--- OUTSIDE RECORDS SUMMARY | 2020-02-03 17:02 | XMS REPORT ---
Author Author Derek KEITH Organization [facility] Address [address] [place] [address] Care Team Providers Care Wafer Fab Technician Name Role Phone ARMANI KEITH Unavailable PROBLEMS Type Condition ICD9-CM Code SSQ99-EM Code Onset Dates Condition S tatus SNOMED Code Problem Bladder spasms N32.89 Active 85898 7006 Problem Seasonal allergic rhinitis due to other allergic trigger J30.89 Active 049064945 Problem Anxiety F41.9 Active 55759039 Problem Seasonal allergic rhinitis, unspecified trigger J3 0.2 Active 986087452 Problem Seasonal allergic rhinitis, unspecified trigger J3 0.2 Active 974257373 Problem Mood disorder F39 Active 842147 05 Problem 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 12570049 Problem Migraine with aura and without status migrainosu s, not intractable G43.109 Active 9709817 Problem Migraine with aura and without status migrainosu s, not intractable G43.109 Active 5655068 ALLERGIES No Information ENCOUNTERS Encounter Location Date Diagnosis [place] [address] [address] Nov, [facility] IN [facility] [address] [place] [id number] [address] [place] [address] Nov, Acute non-recurrent frontal sinusitis J01.10 [facility] [address] [address] Oct, [facility] WALK IN [facility] [address] [place] [id number] [address] [place] [address] Aug, Seasonal allergic rhinitis, unspecified trigger J30.2 [facility] [address] [address] 03 Aug, 2019 Sore throat J02.9 and Obesity, Class II, BMI 35-39.9, no comorbidity E66.9 [facility] [address] [address] May, 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 and Migraine with aura and without status migrainosus, not intractable G43.109 [place] [address] [address] Apr, [place] [address] [address] March, [facility] WALK IN [facility] [address] [place] [id number] [place] [address] Feb, Acute midline low back pain without sciatica M54.5 [place] [address] [address] Feb, Seizures R56.9 [place] [address] [address] Jan, [place] [address] [address] Jan, Bronchitis J40 and Pleurisy R09.1 [facility] WALK IN [facility] [address] [place] [id number] [address] [place] [address] Jan, Acute bronchitis, unspecifie d organism J20.9 and Fever R50.9 [place] [address] [address] Jan, [place] [address] [address] Jan, Seizures R56.9 [place] [address] [address] Nov, [place] [address] [address] Nov, [place] [address] [address] Nov, 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 and Palpitations R00.2 [facility] [address] [address] Nov, [facility] [address] [place] [address] Oct, [facility] [address] [address] Sep, [facility] [address] [address] Aug, Seizures R56.9 and Mood disorder F39 [place] [address] [address] Jul, Dysuria R30.0 and Bladder spasms N32.89 [place] [address] [address] Jul, [facility] [address] [address] March, Elevated liver enzymes R74.8 and Abnorma l CBC R79.89 [facility] [address] [address] March, Encounter for immunization Z23 [facility] [address] [address] March, [facility] [address] [address] March, [facility] [address] [address] March, Elevated liver enzymes R74.8 and Abnorma l CBC R79.89 [facility] [address] [address] March, Anxiety F41.9 ; Bronchitis J40 and Seaso nal allergic rhinitis due to other allergic trigger J30.89 [facility] [address] [address] March, [facility] [address] [place] [address] Feb, [facility] [address] [address] Feb, Pharyngitis due to other organism J02.8 [place] [address] [address] Feb, Pharyngitis due to other organism J02.8 [facility] [place] [address] [address] Feb, Sore throat J02.9 ; Fatigue, unspecified type R53.83 and Strep pharyngitis J02.0 [facility] N [address] [address] Feb, Acute nasopharyngitis J00 [facility] N [address] [address] Feb, Lower abdominal pain R10.30 [facility] N [address] [address] Feb, Bladder spasms N32.89 and Ur inary frequency R35.0 [facility] N [address] [address] Jan, Strep throat J02.0 [facility] N [address] [address] Dec, Seasonal allergic rhinitis, unspecified trigger J30.2 [place] [address] [id number] [place] [address] Nov, Acute suppurative otitis media of both e ars without spontaneous rupture of tympanic membranes, recurrence not specified H66.003 [facility] N [address] [address] Nov, Acute suppurative otitis med ia of both ears without spontaneous rupture of tympanic membranes, recurrence not specified H66.003 [facility] [address] [address] Nov, Acute suppurative otitis med ia of both ears without spontaneous rupture of tympanic membranes, recurrence not specified H66.003 [place] [address] [address] Oct, [place] [address] [address] 21 Jul, 2017 Seizures R56.9 [place] [address] [address] 14 Jul, 2017 Seizures R56.9 ; Other chronic pain G89. 29 ; Pain in left ankle and joints of left foot M25.572 and Allergic rhinitis, unspecified allergic rhinitis trigger, unspecified rhinitis seasonality J30.9 [facility] [place] [address] [address] 07 Jul, 2017 Acute seasonal allergic rhin itis due to other allergen J30.89 [facility] [place] [address] [address] Jun, Left foot pain M79.672 and L eft lateral ankle pain M25.572 [place] [address] [address] Aug, Allergic rhinitis, unspecified allergic rhinitis trigger, unspecified rhinitis seasonality J30.9 ; Low back pain M54.5 and Other chronic pain G89.29 [facility] [place] [id number] [place] [address] Jul, [facility] IN [address] [address] 12 Jul, 2016 Low back pain M54.5 and Othe r chronic pain G89.29 [facility] IN [address] [address] 09 Jul, 2016 Acute maxillary sinusitis, r ecurrence not specified J01.00 [facility] [place] [address] [address] Jun, Cellulitis of left lower ext remity L03.116 [facility] WALK IN [address] [address] Apr, Wrist pain, left M25.532 [facility] WALK IN [address] [address] March, Low back pain M54.5 ; Fever, unspecified R50.9 and Strep pharyngitis J02.0 [facility] WALK IN [address] [address] March, Hordeolum externum of left u pper eyelid H00.014 and Acute follicular conjunctivitis of left eye H10.012 [place] [address] [address] Jan, Folliculitis L73.9 [facility] IN [address] [address] Jan, Screen for sexually transmit yayo diseases Z11.3 [place] [address] [address] Nov, [place] [address] [address] Nov, Gen idiopathic epilepsy, not intractable , 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 [facility] IN [address] [address] Nov, Malaise R53.81 ; Upper respi ratory infection J06.9 and Pharyngitis J02.9 [facility] IN [address] [address] Nov, Acute pharyngitis, unspecifi ed J02.9 ; Acute upper respiratory infection, unspecified J06.9 ; Other viral agents as the cause of diseases classified elsewhere B97.89 and Allergic rhinitis J30.9 [facility] WALK IN [address] [place] [address] 04 Oct, 2015 Testicular pain N50.8 [facility] [address] [address] 15 Jul, 2015 Sinusitis 473.9 [facility] [address] [place] [id number] [place] [address] 12 Apr, 2015 Back pain 724.5 [facility] [address] [address] 11 Apr[facility] [address] [facility] [address] [place] [id number] [place] [address] Feb, [facility] [address] [address] Feb, [facility] [address] [address] Jan, [facility] [address] [address] Nov, [facility] [address] [place] [id number] [place] [address] Nov, [facility] [address] [address] Nov, [facility] [address] [address] Nov, [facility] [address] [address] Oct, [facility] [address] [place] [id number] [place] [address] Oct, [facility] [address] [address] Aug, [facility] [address] [address] Aug, [facility] [address] [address] Aug, [facility] [address] [address] Aug, [facility] [place] [facility] [address] [facility] [id number] [facility] [address] Aug, [facility] [place] [facility] [address] [facility] [id number] [facility] [place] [address] Aug, [facility] [place] [facility] [address] [facility] [id number] [facility] [address] Aug, [facility] [place] [facility] [address] [facility] [id number] [place] [address] Aug, [facility] [place] [facility] [address] [facility] [id number] [facility] [address] Jun, [facility] [place] [facility] [address] [facility] [id number] [place] [address] Jun, [facility] [place] [facility] [address] [id number] [place] [address] Jun, [facility] [place] [facility] [address] [id number] [place] [address] Jun, [facility] [place] [facility] [address] [facility] [id number] [facility] [address] Jun, [facility] [place] [facility] [address] [id number] [facility] [address] Jun, [facility] [place] [facility] [address] [id number] [place] [address] Jun, [facility] [place] [facility] [address] [id number] [facility] [place] [address] Jun, [facility] [place] [facility] [address] [facility] [id number] [facility] [address] Jun, [facility] [place] [facility] [address] [id number] [place] [address] Jun, [facility] [place] [facility] [address] [facility] [id number] [facility] [address] May, [facility] [place] [facility] [address] [id number] [facility] [address] May, [facility] [place] [facility] [address] [id number] [place] [address] March, [facility] [place] [facility] [address] [id number] [place] [address] March, [facility] [place] [facility] [address] [id number] [place] [address] March, [facility] [place] [facility] [address] [id number] [place] [address] March, [facility] [place] [facility] [address] [id number] [place] [address] Feb, [facility] [place] [facility] [address] [id number] [place] [address] Feb, [facility] [place] [facility] [address] [id number] [place] [address] Jan, [facility] [place] [facility] [address] [id number] [place] [address] Jan, [facility] [place] [facility] [address] [id number] [place] [address] Jan, [facility] [place] [facility] [address] [id number] [place] [address] Jan, [facility] [place] [facility] [address] [id number] [place] [address] Dec, [facility] [place] [facility] [address] [id number] [place] [address] Dec, [facility] [place] [facility] [address] [id number] [place] [address] Dec, [facility] [place] [facility] [address] [id number] [place] [address] Dec, [facility] [place] [facility] [address] [id number] [place] [address] Dec, [facility] [place] [facility] [address] [id number] [place] [address] Dec, [facility] [place] [facility] [address] [id number] [place] [address] Nov, [facility] [place] [facility] [address] [id number] [place] [address] Nov, [facility] [place] [facility] [address] [id number] [place] [address] Nov, [facility] [place] [facility] [address] [id number] [place] [address] Nov, [facility] [place] [facility] [address] [id number] [place] [address] Nov, [facility] [place] [facility] [address] [id number] [place] [address] Nov, [facility] [place] [facility] [address] [id number] [place] [address] Nov, [facility] [place] [facility] [address] [id number] [place] [address] Nov, [facility] [place] [facility] [address] [id number] [place] [address] Nov, [facility] [place] [facility] [address] [id number] [place] [address] Nov, [facility] [place] [facility] [address] [id number] [place] [address] Nov, [facility] [place] [facility] [address] [id number] [place] [address] Nov, [facility] [place] [facility] [address] [id number] [place] [address] Oct, [facility] [place] [facility] [address] [id number] [place] [address] Oct, [facility] [place] [facility] [address] [id number] [place] [address] Oct, [facility] [place] [facility] [address] [id number] [place] [address] Oct, [facility] [place] [facility] [address] [id number] [place] [address] Sep, [facility] [place] [facility] [address] [id number] [place] [address] 29 Sep, 2013 [facility] [place] [facility] [address] [id number] [place] [address] Sep, [facility] [place] [facility] [address] [id number] [place] [address] Sep, [facility] [place] [facility] [address] [id number] [place] [address] Sep, [facility] [place] [facility] [address] [id number] [place] [address] Sep, [facility] [place] [facility] [address] [id number] [place] [address] Sep, [facility] [place] [facility] [address] [id number] [place] [address] Sep, [facility] [place] [facility] [address] [id number] [place] [address] 30 Jul, 2013 [facility] [place] [facility] [address] [id number] [place] [address] Jul, [facility] [place] [facility] [address] [id number] [place] [address] May, [facility] [place] [facility] [address] [id number] [place] [address] Apr, [facility] [place] [facility] [address] [id number] [place] [address] 24 Apr, 2013 [facility] [place] [facility] [address] [id number] [place] [address] Apr, [facility] [place] [facility] [address] [id number] [place] [address] Apr, [facility] [place] [facility] [address] [place] [id number] [place] [address] Apr, [facility] [place] [facility] [address] [id number] [place] [address] 10 Apr, 2013 [facility] [place] [facility] [address] [id number] [place] [address] Apr, [facility] [place] [facility] [address] [id number] [place] [address] March, [facility] [address] [id number] [place] [address] March, [facility] [place] [facility] [address] [id number] [place] [address] Jan, [facility] [address] [id number] [place] [address] Dec, [facility] [place] [facility] [address] [id number] [place] [address] Nov, [facility] [place] [address] [id number] [place] [address] Nov, [facility] [place] [facility] [address] [id number] [place] [address] Oct, [facility] [address] [place] [id number] [place] [address] Oct, [facility] [place] [facility] [address] [id number] [place] [address] Oct, [facility] [address] [place] [id number] [place] [address] Oct, [facility] [place] [facility] [address] [id number] [place] [address] Oct, [facility] [address] [id number] [place] [address] Oct, [facility] [place] [facility] [address] [id number] [place] [address] Sep, [facility] [place] [facility] [address] [id number] [place] [address] Sep, [facility] [place] [facility] [address] [id number] [place] [address] Sep, [facility] [place] [facility] [address] [id number] [place] [address] Sep, [facility] [place] [facility] [address] [id number] [place] [address] Sep, [facility] [place] [facility] [address] [id number] [place] [address] Sep, [facility] [place] [facility] [address] [id number] [place] [address] Sep, [facility] [place] [facility] [address] [id number] [place] [address] Sep, [facility] [place] [facility] [address] [id number] [place] [address] Sep, [facility] [place] [facility] [address] [id number] [place] [address] Sep, [facility] [place] [facility] [address] [id number] [place] [address] Sep, [facility] [place] [facility] [address] [id number] [place] [address] Sep, [facility] [place] [facility] [address] [id number] [place] [address] Aug, [facility] [place] [facility] [address] [id number] [place] [address] Aug, [facility] [place] [facility] [address] [id number] [place] [address] Aug, [facility] [place] [facility] [address] [id number] [place] [address] Aug, [facility] [place] [facility] [address] [id number] [place] [address] Aug, [facility] [place] [facility] [address] [id number] [place] [address] Aug, [facility] [address] [id number] [place] [address] Aug, [facility] [address] [id number] [place] [address] Aug, [facility] [address] [id number] [place] [address] Aug, [facility] [address] [id number] [place] [address] Aug, [facility] [id number] [place] [address] Jul, [facility] [address] [id number] [place] [address] Jul, [facility] [address] [id number] [place] [address] Jun, [facility] [address] [id number] [place] [address] Jun, [facility] [address] [id number] [place] [address] Jun, [facility] [address] [id number] [place] [address] May, [facility] [address] [id number] [place] [address] May, [facility] [address] [id number] [place] [address] May, [facility] [address] [id number] [place] [address] May, [facility] [address] [id number] [place] [address] Apr, [facility] [address] [id number] [place] [address] Apr, [facility] [address] [id number] [place] [address] Apr, [facility] [address] [id number] [place] [address] Apr, [facility] [address] [id number] [place] [address] March, [facility] [address] [id number] [place] [address] Jan, [facility] [address] [id number] [place] [address] Dec, [facility] [id number] [place] [address] Dec, [facility] [address] [address] Oct, [facility] [id number] [place] [address] Oct, [facility] [address] [address] Oct, [facility] [address] [address] Oct, [facility] [address] [address] Oct, [facility] [address] [address] Oct, [facility] [address] [address] Oct, [facility] [address] [address] Oct, [facility] [address] [address] Sep, [facility] [address] [address] Sep, [facility] [address] [address] Sep, [facility] [address] [address] Sep, [facility] [address] [address] Aug, [facility] [address] [address] 15 Jul, 2011 IMMUNIZATIONS No Known Immunizations SOCIAL HISTORY Never Assessed REASON FOR VISIT PLAN OF CARE VITAL SIGNS MEDICATIONS Unknown Medications RESULTS No Results PROCEDURES No Known procedures INSTRUCTIONS MEDICATIONS ADMINISTERED No Known Medications MEDICAL (GENERAL) HISTORY Type Description Date Medical History seizures Medical History allergic rhinitis Medical History mood disorder Medical History back pain Surgical History tonsillectomy Hospitalization History Seizure activity - [facility]. 07/2018
--- OUTSIDE RECORDS SUMMARY | 2020-02-03 17:02 | XMS REPORT ---
Author Author Derek KEITH Organization [facility] Address [address] [place] [address] Care Team Providers Care Gatekeeper Name Role Phone ARMANI KEITH Unavailable PROBLEMS Type Condition ICD9-CM Code ADI86-QM Code Onset Dates Condition S tatus SNOMED Code Problem Bladder spasms N32.89 Active 81164 7006 Problem Seasonal allergic rhinitis due to other allergic trigger J30.89 Active 166037290 Problem Anxiety F41.9 Active 21671096 Problem Seasonal allergic rhinitis, unspecified trigger J3 0.2 Active 488920536 Problem Seasonal allergic rhinitis, unspecified trigger J3 0.2 Active 889202328 Problem Mood disorder F39 Active 989093 05 Problem 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 IN [facility] [address] [place] [id number] [address] [place] [address] Nov, Acute non-recurrent frontal sinusitis J01.10 [facility] [address] [address] Oct, [facility] [address] [place] [id number] [address] [place] [address] Aug, Seasonal allergic rhinitis, unspecified trigger J30.2 [facility] [address] [address] Aug, Sore throat J02.9 and Obesity, Class II, BMI 35-39.9, no comorbidity E66.9 [facility] [address] [address] May, 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 and Migraine with aura and without status migrainosus, not intractable G43.109 [place] [address] [address] Apr, [place] [address] [address] March, [facility] [address] [place] [id number] [address] [place] [address] Feb, Acute midline low back pain without sciatica M54.5 [place] [address] [address] Feb, Seizures R56.9 [place] [address] [address] Jan, [place] [address] [address] Jan, Bronchitis J40 and Pleurisy R09.1 [facility] [address] [place] [id number] [address] [place] [address] Jan, Acute bronchitis, unspecifie d organism J20.9 and Fever R50.9 [place] [address] [address] Jan, [place] [address] [address] Jan, Seizures R56.9 [place] [address] [address] Nov, [place] [address] [address] Nov, [place] [address] [address] Nov, 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 and Palpitations R00.2 [facility] [address] [address] Nov, [facility] [address] [place] [address] Oct, [facility] [address] [address] Sep, [facility] [address] [address] Aug, Seizures R56.9 and Mood disorder F39 [place] [address] [address] Jul, Dysuria R30.0 and Bladder spasms N32.89 [place] [address] [address] Jul, [facility] [address] [address] March, Elevated liver enzymes R74.8 and Abnorma l CBC R79.89 [facility] [address] [address] March, Encounter for immunization Z23 [facility] [address] [address] March, [facility] [address] [address] March, [facility] [address] [address] March, Elevated liver enzymes R74.8 and Abnorma l CBC R79.89 [facility] [address] [address] March, Anxiety F41.9 ; Bronchitis J40 and Seaso nal allergic rhinitis due to other allergic trigger J30.89 [facility] [address] [address] March, [facility] [address] [place] [address] Feb, [facility] [address] [address] Feb, Pharyngitis due to other organism J02.8 [place] [address] [address] Feb, Pharyngitis due to other organism J02.8 [facility] [address] [address] Feb, Sore throat J02.9 ; Fatigue, unspecified type R53.83 and Strep pharyngitis J02.0 [facility] N [address] [address] Feb, Acute nasopharyngitis J00 [facility] N [address] [address] Feb, Lower abdominal pain R10.30 [facility] N [address] [address] Feb, Bladder spasms N32.89 and Ur inary frequency R35.0 [facility] N [address] [address] Jan, Strep throat J02.0 [facility] N [address] [address] Dec, Seasonal allergic rhinitis, unspecified trigger J30.2 [place] [address] [id number] [place] [address] Nov, Acute suppurative otitis media of both e ars without spontaneous rupture of tympanic membranes, recurrence not specified H66.003 [facility] N [address] [address] Nov, Acute suppurative otitis med ia of both ears without spontaneous rupture of tympanic membranes, recurrence not specified H66.003 [facility] [address] [address] Nov, Acute suppurative otitis med ia of both ears without spontaneous rupture of tympanic membranes, recurrence not specified H66.003 [place] [address] [address] Oct, [place] [address] [address] 21 Jul, 2017 Seizures R56.9 [place] [address] [address] 14 Jul, 2017 Seizures R56.9 ; Other chronic pain G89. 29 ; Pain in left ankle and joints of left foot M25.572 and Allergic rhinitis, unspecified allergic rhinitis trigger, unspecified rhinitis seasonality J30.[address] [facility] [place] [address] [address] 07 Jul, 2017 Acute seasonal allergic rhin itis due to other allergen J30.89 [facility] [place] [address] [address] Jun, Left foot pain M79.672 and L eft lateral ankle pain M25.572 [place] [address] [address] Aug, Allergic rhinitis, unspecified allergic rhinitis trigger, unspecified rhinitis seasonality J30.9 ; Low back pain M54.5 and Other chronic pain G89.29 [facility] N [place] [id number] [place] [address] Jul, [facility] [address] [address] 12 Jul, 2016 Low back pain M54.5 and Othe r chronic pain G89.29 [facility] [address] [address] 09 Jul, 2016 Acute maxillary sinusitis, r ecurrence not specified J01.[address] [facility] [place] [address] [address] Jun, Cellulitis of left lower ext remity L03.116 [facility] W[facility] IN [address] [address] Apr, Wrist pain, left M25.532 [facility] IN [address] [address] March, Low back pain M54.5 ; Fever, unspecified R50.9 and Strep pharyngitis J02.0 [facility] IN [address] [address] March, Hordeolum externum of left u pper eyelid H00.014 and Acute follicular conjunctivitis of left eye H10.012 [place] [address] [address] Jan, Folliculitis L73.[address] [facility] IN [address] [address] Jan, Screen for sexually transmit yayo diseases Z11.3 [place] [address] [address] Nov, [place] [address] [address] Nov, Gen idiopathic epilepsy, not intractable , 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 [facility] IN [address] [address] Nov, Malaise R53.81 ; Upper respi ratory infection J06.9 and Pharyngitis J02.[address] [facility] IN [address] [address] Nov, Acute pharyngitis, unspecifi ed J02.9 ; Acute upper respiratory infection, unspecified J06.9 ; Other viral agents as the cause of diseases classified elsewhere B97.89 and Allergic rhinitis J30.9 [facility] IN [address] [place] [address] 04 Oct, 2015 Testicular pain N50.8 [facility] [address] [address] 15 Jul, 2015 Sinusitis 473.9 [facility] [address] [place] [id number] [place] [address] 12 Apr, 2015 Back pain 724.5 [facility] [address] [address] 11 Apr, 2015 [facility] [address] [place] [id number] [place] [address] Feb, [facility] [address] [address] Feb, [facility] [address] [address] Jan, [facility] [address] [address] Nov, [facility] [address] [place] [id number] [place] [address] Nov, [facility] [address] [address] Nov, [facility] [address] [address] Nov, [facility] [address] [address] Oct, [facility] [address] [place] [id number] [place] [address] Oct, [facility] [address] [address] Aug, [facility] [address] [address] Aug, [facility] [address] [address] Aug, [facility] [address] [address] Aug, [facility] [place] [facility] [address] [facility] [id number] [facility] [place] [address] Aug, [facility] [place] [facility] [address] [facility] [id number] [facility] [place] [address] Aug, [facility] [place] [facility] [address] [facility] [id number] [facility] [place] [address] Aug, [facility] [place] [facility] [address] [facility] [id number] [place] [address] Aug, [facility] [place] [facility] [address] [facility] [id number] [facility] [place] [address] Jun, [facility] [place] [facility] [address] [facility] [id number] [place] [address] Jun, [facility] [place] [facility] [address] [id number] [place] [address] Jun, [facility] [place] [facility] [address] [id number] [place] [address] Jun, [facility] [place] [facility] [address] [facility] [id number] [facility] [place] [address] Jun, [facility] [place] [facility] [address] [id number] [facility] [place] [address] Jun, [facility] [place] [facility] [address] [id number] [place] [address] Jun, [facility] [place] [facility] [address] [id number] [facility] [place] [address] Jun, [facility] [place] [facility] [address] [facility] [id number] [facility] [place] [address] Jun, [facility] [place] [facility] [address] [id number] [place] [address] Jun, [facility] [place] [facility] [address] [facility] [id number] [facility] [place] [address] May, [facility] [place] [facility] [address] [id number] [facility] [place] [address] May, [facility] [place] [facility] [address] [id number] [place] [address] March, [facility] [place] [facility] [address] [id number] [place] [address] March, [facility] [place] [facility] [address] [id number] [place] [address] March, [facility] [place] [facility] [address] [id number] [place] [address] March, [facility] [place] [facility] [address] [id number] [place] [address] Feb, [facility] [place] [facility] [address] [id number] [place] [address] Feb, [facility] [place] [facility] [address] [id number] [place] [address] Jan, [facility] [place] [facility] [address] [id number] [place] [address] Jan, [facility] [place] [facility] [address] [id number] [place] [address] Jan, [facility] [place] [facility] [address] [id number] [place] [address] Jan, [facility] [place] [facility] [address] [id number] [place] [address] Dec, [facility] [place] [facility] [address] [id number] [place] [address] Dec, [facility] [place] [facility] [address] [id number] [place] [address] Dec, [facility] [place] [facility] [address] [id number] [place] [address] Dec, [facility] [place] [facility] [address] [id number] [place] [address] Dec, [facility] [place] [facility] [address] [id number] [place] [address] Dec, [facility] [place] [facility] [address] [id number] [place] [address] Nov, [facility] [place] [facility] [address] [id number] [place] [address] Nov, [facility] [place] [facility] [address] [id number] [place] [address] Nov, [facility] [place] [facility] [address] [id number] [place] [address] Nov, [facility] [place] [facility] [address] [id number] [place] [address] Nov, [facility] [place] [facility] [address] [id number] [place] [address] Nov, [facility] [place] [facility] [address] [id number] [place] [address] Nov, [facility] [place] [facility] [address] [id number] [place] [address] Nov, [facility] [place] [facility] [address] [id number] [place] [address] Nov, [facility] [place] [facility] [address] [id number] [place] [address] Nov, [facility] [place] [facility] [address] [id number] [place] [address] Nov, [facility] [place] [facility] [address] [id number] [place] [address] Nov, [facility] [place] [facility] [address] [id number] [place] [address] Oct, [facility] [place] [facility] [address] [id number] [place] [address] Oct, [facility] [place] [facility] [address] [id number] [place] [address] Oct, [facility] [place] [facility] [address] [id number] [place] [address] Oct, [facility] [place] [facility] [address] [id number] [place] [address] Sep, [facility] [place] [facility] [address] [id number] [place] [address] 29 Sep, 2013 [facility] [place] [facility] [address] [id number] [place] [address] Sep, [facility] [place] [facility] [address] [id number] [place] [address] Sep, [facility] [place] [facility] [address] [id number] [place] [address] Sep, [facility] [place] [facility] [address] [id number] [place] [address] Sep, [facility] [place] [facility] [address] [id number] [place] [address] Sep, [facility] [place] [facility] [address] [id number] [place] [address] Sep, [facility] [place] [facility] [address] [id number] [place] [address] 30 Jul, 2013 [facility] [place] [facility] [address] [id number] [place] [address] Jul, [facility] [place] [facility] [address] [id number] [place] [address] May, [facility] [place] [facility] [address] [id number] [place] [address] Apr, [facility] [place] [facility] [address] [id number] [place] [address] 24 Apr, 2013 [facility] [place] [facility] [address] [id number] [place] [address] Apr, [facility] [place] [facility] [address] [id number] [place] [address] Apr, [facility] [place] [facility] [address] [place] [id number] [place] [address] Apr, [facility] [place] [facility] [address] [id number] [place] [address] 10 Apr, 2013 [facility] [place] [facility] [address] [id number] [place] [address] Apr, [facility] [place] [facility] [address] [id number] [place] [address] March, [facility] [address] [id number] [place] [address] March, [facility] [place] [facility] [address] [id number] [place] [address] Jan, [facility] [address] [id number] [place] [address] Dec, [facility] [place] [facility] [address] [id number] [place] [address] Nov, [facility] [address] [id number] [place] [address] Nov, [facility] [place] [facility] [address] [id number] [place] [address] Oct, [facility] [address] [place] [id number] [place] [address] Oct, [facility] [place] [facility] [address] [id number] [place] [address] Oct, [facility] [address] [place] [id number] [place] [address] Oct, [facility] [place] [facility] [address] [id number] [place] [address] Oct, [facility] [address] [id number] [place] [address] Oct, [facility] [place] [facility] [address] [id number] [place] [address] Sep, [facility] [place] [facility] [address] [id number] [place] [address] Sep, [facility] [place] [facility] [address] [id number] [place] [address] Sep, [facility] [place] [facility] [address] [id number] [place] [address] Sep, [facility] [place] [facility] [address] [id number] [place] [address] Sep, [facility] [place] [facility] [address] [id number] [place] [address] Sep, [facility] [place] [facility] [address] [id number] [place] [address] Sep, [facility] [place] [facility] [address] [id number] [place] [address] Sep, [facility] [place] [facility] [address] [id number] [place] [address] Sep, [facility] [place] [facility] [address] [id number] [place] [address] Sep, [facility] [place] [facility] [address] [id number] [place] [address] Sep, [facility] [place] [facility] [address] [id number] [place] [address] Sep, [facility] [place] [facility] [address] [id number] [place] [address] Aug, [facility] [place] [facility] [address] [id number] [place] [address] Aug, [facility] [place] [facility] [address] [id number] [place] [address] Aug, [facility] [place] [facility] [address] [id number] [place] [address] Aug, [facility] [place] [facility] [address] [id number] [place] [address] Aug, [facility] [place] [facility] [address] [id number] [place] [address] Aug, [facility] [place] [facility] [address] [id number] [place] [address] Aug, [facility] [place] [facility] [address] [id number] [place] [address] Aug, [facility] [place] [facility] [address] [id number] [place] [address] Aug, [facility] [place] [facility] [address] [id number] [place] [address] Aug, [facility] [place] [facility] [address] [id number] [place] [address] Jul, [facility] [place] [facility] [address] [id number] [place] [address] Jul, [facility] [place] [facility] [address] [id number] [place] [address] Jun, [facility] [place] [facility] [address] [id number] [place] [address] Jun, [facility] [place] [facility] [address] [id number] [place] [address] Jun, [facility] [place] [facility] [address] [id number] [place] [address] May, [facility] [place] [facility] [address] [id number] [place] [address] May, [facility] [place] [facility] [address] [id number] [place] [address] May, [facility] [address] [id number] [place] [address] May, [facility] [address] [id number] [place] [address] Apr, [facility] [address] [id number] [place] [address] Apr, [facility] [address] [id number] [place] [address] Apr, [facility] [address] [id number] [place] [address] Apr, [facility] [address] [id number] [place] [address] March, [facility] [address] [id number] [place] [address] Jan, [facility] [address] [id number] [place] [address] Dec, [facility] [id number] [place] [address] Dec, [facility] [address] [address] Oct, [facility] [id number] [place] [address] Oct, [facility] [address] [address] Oct, [facility] [address] [address] Oct, [facility] [address] [address] Oct, [facility] [address] [address] Oct, [facility] [address] [address] Oct, [facility] [address] [address] Oct, [facility] [address] [address] Sep, [facility] [address] [address] Sep, [facility] [address] [address] Sep, [facility] [address] [address] Sep, [facility] [address] [address] Aug, [facility] [address] [address] 15 Jul, 2011 IMMUNIZATIONS No Known Immunizations [...] History tonsillectomy Hospitalization History Seizure activity - [facility]. 07/2018
--- OUTSIDE RECORDS SUMMARY | 2020-02-03 17:02 | XMS REPORT ---
Author Author Derek Ramirez Organization [facility] Address [address] [place] [address] Care Team Providers Care Plastic And Reconstructive Surgeon Name Role Phone AMI Ramirez Unavailable PROBLEMS Type Condition ICD9-CM Code [id number] Code Onset Dates Condition S tatus SNOMED Code Problem Bladder spasms N32.89 Active 08073 7006 Problem Seasonal allergic rhinitis due to other allergic trigger J30.89 Active 343555940 Problem Anxiety F41.9 Active 48651516 Problem Seasonal allergic rhinitis, unspecified trigger J3 0.2 Active 956276329 Problem Seasonal allergic rhinitis, unspecified trigger J3 0.2 Active 988218604 Problem Mood disorder F39 Active 117287 05 Problem 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 12031346 Problem Migraine with aura and without status migrainosu s, not intractable G43.109 Active 8336940 Problem Migraine with aura and without status migrainosu s, not intractable G43.109 Active 7950734 ALLERGIES No Information ENCOUNTERS Encounter Location Date Diagnosis [facility] [address] [address] Nov, [facility] WALK IN [facility] [address] [facility] [id number] [address] [place] [address] Nov, Acute non-recurrent frontal sinusitis J01.10 [facility] [address] [place] [id number] [place] [address] Oct, [facility] WALK IN [facility] [address] [facility] [id number] [address] [place] [address] Aug, Seasonal allergic rhinitis, unspecified trigger J30.2 [facility] [address] [address] Aug, Sore throat J02.9 and Obesity, Class II, BMI 35-39.9, no comorbidity E66.9 [place] [address] [address] May, 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 and Migraine with aura and without status migrainosus, not intractable G43.109 [place] [address] [address] Apr, [place] [address] [address] March, [facility] WALK IN [place] [address] [address] Feb, Acute midline low back pain without sciatica M54.5 [place] [address] [address] Feb, Seizures R56.9 [place] [address] [address] Jan, [place] [address] [address] Jan, Bronchitis J40 and Pleurisy R09.1 [facility] WALK IN [place] [address] [address] [place] [id number] [address] [place] [address] Jan, Acute bronchitis, unspecifie d organism J20.9 and Fever R50.9 [place] [address] [address] Jan, [place] [address] [address] Jan, Seizures R56.9 [place] [address] [address] Nov, [place] [address] [address] Nov, [place] [address] [address] Nov, 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 and Palpitations R00.2 [place] [address] [address] Nov, [facility] [address] [address] Oct, [place] [address] [address] Sep, [place] [address] [address] Aug, Seizures R56.9 and Mood disorder F39 [address] [address] Jul, Dysuria R30.0 and Bladder spasms N32.89 [place] [address] [address] Jul, [place] [address] [address] March, Elevated liver enzymes R74.8 and Abnorma l CBC R79.[address] [address] March, Encounter for immunization Z23 [address] [address] March, [place] [address] [address] March, [place] [address] [address] March, Elevated liver enzymes R74.8 and Abnorma l CBC R79.[address] [address] March, Anxiety F41.9 ; Bronchitis J40 and Seaso nal allergic rhinitis due to other allergic trigger J30.[address] [address] March, [place] [address] [id number] [place] [address] Feb, [place] [address] [address] Feb, Pharyngitis due to other organism J02.8 [place] [address] [address] Feb, Pharyngitis due to other organism J02.8 [facility] [address] [place] [id number] [place] [address] Feb, Sore throat J02.9 ; Fatigue, unspecified type R53.83 and Strep pharyngitis J02.0 [facility] [address] [place] [id number] [place] [address] Feb, Acute nasopharyngitis J00 [facility] N [address] [address] Feb, Lower abdominal pain R10.30 [facility] N [address] [address] Feb, Bladder spasms N32.89 and Ur inary frequency R35.0 [facility] [address] [place] [id number] [place] [address] Jan, Strep throat J02.0 [facility] [address] [place] [id number] [place] [address] Dec, Seasonal allergic rhinitis, unspecified trigger J30.2 [place] [address] [id number] [place] [address] Nov, Acute suppurative otitis media of both e ars without spontaneous rupture of tympanic membranes, recurrence not specified H66.003 [facility] [address] [place] [id number] [place] [address] Nov, Acute suppurative otitis med ia of both ears without spontaneous rupture of tympanic membranes, recurrence not specified H66.003 [facility] [place] [address] [address] [place] [id number] [place] [address] Nov, Acute suppurative otitis med ia of both ears without spontaneous rupture of tympanic membranes, recurrence not specified H66.003 [place] [address] [address] Oct, [place] [address] [address] 21 Jul, 2017 Seizures R56.9 [place] [address] [address] 14 Jul, 2017 Seizures R56.9 ; Other chronic pain G89. 29 ; Pain in left ankle and joints of left foot M25.572 and Allergic rhinitis, unspecified allergic rhinitis trigger, unspecified rhinitis seasonality J30.9 [facility] [address] [address] 07 Jul, 2017 Acute seasonal allergic rhin itis due to other allergen J30.89 [facility] IN [place] [address] [address] Jun, Left foot pain M79.672 and L eft lateral ankle pain M25.572 [place] [address] [address] Aug, Allergic rhinitis, unspecified allergic rhinitis trigger, unspecified rhinitis seasonality J30.9 ; Low back pain M54.5 and Other chronic pain G89.29 [facility] N [address] [address] Jul, [facility] [address] [place] [address] 12 Jul, 2016 Low back pain M54.5 and Othe r chronic pain G89.29 [facility] [address] [place] [address] 09 Jul, 2016 Acute maxillary sinusitis, r ecurrence not specified J01.00 [facility] [address] [place] [id number] [place] [address] Jun, Cellulitis of left lower ext remity L03.116 [facility] WALK IN [address] [address] Apr, Wrist pain, left M25.532 [facility] WALK IN [address] [address] March, Low back pain M54.5 ; Fever, unspecified R50.9 and Strep pharyngitis J02.0 [facility] WALK IN [address] [address] March, Hordeolum externum of left u pper eyelid H00.014 and Acute follicular conjunctivitis of left eye H10.[address] [address] Jan, Folliculitis L73.9 [facility] [place] [address] [address] Jan, Screen for sexually transmit yayo diseases Z11.3 [place] [address] [address] Nov, [address] [address] Nov, Gen idiopathic epilepsy, not intractable , 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 [facility] [place] [address] [address] Nov, Malaise R53.81 ; Upper respi ratory infection J06.9 and Pharyngitis J02.9 [facility] IN [address] [address] Nov, Acute pharyngitis, unspecifi ed J02.9 ; Acute upper respiratory infection, unspecified J06.9 ; Other viral agents as the cause of diseases classified elsewhere B97.89 and Allergic rhinitis J30.9 [facility] [address] [facility] [id number] [address] [place] [address] 04 Oct, 2015 Testicular pain N50.8 [facility] [address] [place] [id number] [place] [address] 15 Jul, 2015 Sinusitis 473.9 [facility] [address] [place] [id number] [place] [address] 12 Apr, 2015 Back pain 724.5 [facility] [address] [address] Apr, [facility] [address] [place] [id number] [place] [address] Feb, [facility] [address] [address] Feb, [facility] [address] [place] [id number] [place] [address] Jan, [facility] [address] [address] Nov, [facility] [address] [place] [id number] [place] [address] Nov, [facility] [address] [place] [id number] [place] [address] Nov, [facility] [address] [place] [id number] [place] [address] Nov, [facility] [address] [place] [id number] [place] [address] Oct, [facility] [address] [place] [id number] [place] [address] Oct, [facility] [address] [place] [id number] [place] [address] Aug, [facility] [address] [place] [id number] [place] [address] Aug, [facility] [address] [place] [id number] [place] [address] Aug, [facility] [address] [id number] [place] [address] Aug, [facility] [address] [facility] [id number] [place] [address] Aug, [facility] [address] [facility] [id number] [place] [address] Aug, [facility] [address] [facility] [id number] [place] [address] Aug, [facility] [address] [facility] [id number] [place] [address] Aug, [facility] [address] [facility] [id number] [place] [address] Jun, [facility] [address] [id number] [place] [address] Jun, [facility] [address] [id number] [place] [address] Jun, [facility] [address] [id number] [place] [address] Jun, [facility] [address] [facility] [id number] [place] [address] Jun, [facility] [address] [id number] [place] [address] Jun, [facility] [address] [id number] [place] [address] Jun, [facility] [address] [facility] [id number] [place] [address] Jun, [facility] [address] [facility] [id number] [place] [address] Jun, [facility] [address] [id number] [place] [address] Jun, [facility] [address] [id number] [place] [address] May, [facility] [address] [id number] [place] [address] May, [facility] [address] [facility] [id number] [place] [address] March, [facility] [address] [facility] [id number] [facility] [address] March, [facility] [address] [facility] [id number] [place] [address] March, [facility] [address] [id number] [place] [address] March, [facility] [address] [facility] [id number] [place] [address] Feb, [facility] [address] [id number] [place] [address] Feb, [facility] [address] [id number] [place] [address] Jan, [facility] [address] [id number] [place] [address] Jan, [facility] [address] [id number] [place] [address] Jan, [facility] [address] [id number] [place] [address] Jan, [facility] [address] [id number] [place] [address] Dec, [facility] [address] [id number] [place] [address] Dec, [facility] [address] [id number] [place] [address] Dec, [facility] [address] [id number] [place] [address] Dec, [facility] [address] [id number] [place] [address] Dec, [facility] [address] [id number] [place] [address] Dec, [facility] [address] [id number] [place] [address] Nov, [facility] [address] [id number] [place] [address] Nov, [facility] [address] [id number] [place] [address] Nov, [facility] [address] [id number] [place] [address] Nov, [facility] [address] [id number] [place] [address] Nov, [facility] [address] [id number] [place] [address] Nov, [facility] [address] [id number] [place] [address] Nov, [facility] [address] [id number] [place] [address] Nov, [facility] [address] [id number] [place] [address] Nov, [facility] [address] [id number] [place] [address] Nov, [facility] [address] [id number] [place] [address] Nov, [facility] [address] [id number] [place] [address] Nov, [facility] [address] [id number] [place] [address] Oct, [facility] [address] [id number] [place] [address] Oct, [facility] [address] [id number] [place] [address] Oct, [facility] [address] [id number] [place] [address] Oct, [facility] [address] [id number] [place] [address] Sep, [facility] [address] [id number] [place] [address] Sep, [facility] [address] [id number] [place] [address] Sep, [facility] [address] [id number] [place] [address] Sep, [facility] [address] [id number] [place] [address] Sep, [facility] [address] [id number] [place] [address] Sep, [facility] [address] [id number] [place] [address] Sep, [facility] [address] [id number] [place] [address] Sep, [facility] [address] [id number] [place] [address] 30 Jul, 2013 [facility] [address] [id number] [place] [address] Jul, [facility] [address] [id number] [place] [address] 17 May, 2013 [facility] [address] [id number] [place] [address] Apr, [facility] [address] [id number] [place] [address] 24 Apr, 2013 [facility] [address] [id number] [place] [address] Apr, [facility] [address] [id number] [place] [address] Apr, [facility] [address] [id number] [place] [address] Apr, [facility] [address] [id number] [place] [address] 10 Apr, 2013 [facility] [address] [id number] [place] [address] Apr, [facility] [address] [id number] [place] [address] March, [facility] [address] [id number] [place] [address] March, [facility] [address] [id number] [place] [address] Jan, [facility] [address] [id number] [place] [address] Dec, [facility] [address] [id number] [place] [address] Nov, [facility] [address] [id number] [place] [address] Nov, [facility] [address] [id number] [place] [address] Oct, [facility] [address] [id number] [place] [address] Oct, [facility] [address] [id number] [place] [address] Oct, [facility] [address] [id number] [place] [address] Oct, [facility] [address] [id number] [place] [address] Oct, [facility] [address] [id number] [place] [address] Oct, [facility] [address] [id number] [place] [address] Sep, [facility] [address] [id number] [place] [address] Sep, [facility] [address] [id number] [place] [address] Sep, [facility] [address] [id number] [place] [address] Sep, [facility] [address] [id number] [place] [address] Sep, [facility] [address] [id number] [place] [address] Sep, [facility] [address] [id number] [place] [address] Sep, [facility] [address] [id number] [place] [address] Sep, [facility] [address] [id number] [place] [address] Sep, [facility] [address] [id number] [place] [address] Sep, [facility] [address] [id number] [place] [address] Sep, [facility] [address] [id number] [place] [address] Sep, [facility] [address] [id number] [place] [address] Aug, [facility] [address] [id number] [place] [address] Aug, [facility] [address] [id number] [place] [address] Aug, [facility] [address] [id number] [place] [address] Aug, [facility] [address] [id number] [place] [address] Aug, [facility] [address] [id number] [place] [address] Aug, [facility] [id number] [place] [address] Aug, [facility] [address] [id number] [place] [address] Aug, [facility] [address] [id number] [place] [address] Aug, [facility] [address] [id number] [place] [address] Aug, [facility] [address] [id number] [place] [address] Jul, [facility] [address] [id number] [place] [address] Jul, [facility] [address] [id number] [place] [address] Jun, [facility] [address] [id number] [place] [address] Jun, [facility] [address] [id number] [place] [address] Jun, [facility] [address] [id number] [place] [address] May, [facility] [address] [id number] [place] [address] May, [facility] [address] [id number] [place] [address] May, [facility] [address] [id number] [place] [address] May, [facility] [address] [id number] [place] [address] Apr, [facility] [address] [id number] [place] [address] Apr, [facility] [address] [id number] [place] [address] Apr, [facility] [address] [id number] [place] [address] Apr, [facility] [address] [id number] [place] [address] March, [facility] [address] [id number] [place] [address] Jan, [facility] [address] [id number] [place] [address] Dec, [facility] [id number] [place] [address] Dec, [facility] [id number] [place] [address] Oct, [facility] [id number] [place] [address] Oct, [facility] [id number] [place] [address] Oct, [facility] [id number] [place] [address] Oct, [facility] [id number] [place] [address] Oct, [facility] [id number] [place] [address] Oct, [facility] [id number] [place] [address] Oct, [facility] [id number] [place] [address] Oct, [facility] [id number] [place] [address] Sep, [facility] [id number] [place] [address] Sep, [facility] [id number] [place] [address] 15 Sep, 2011 [facility] [id number] [place] [address] 15 Sep, 2011 [facility] [id number] [place] [address] Aug, [facility] [id number] [place] [address] 15 Jul, 2011 IMMUNIZATIONS No Known Immunizations SOCIAL HISTORY Never Assessed REASON FOR VISIT PLAN OF CARE VITAL SIGNS Height 74 in 2014-01-06 Weight 244.6 lbs 2014-01-06 Temperature 98.3 degrees Fahrenheit 2014-01-06 Heart Rate 72 bpm 2014-01-06 Respiratory Rate 18 2014-01-06 Blood pressure systolic 136 mmHg 2014-01-06 Blood pressure diastolic 78 mmHg 2014-01-06 MEDICATIONS Unknown Medications RESULTS No Results PROCEDURES No Known procedures INSTRUCTIONS MEDICATIONS ADMINISTERED No Known Medications MEDICAL (GENERAL) HISTORY Type Description Date Medical History seizures Medical History allergic rhinitis Medical History mood disorder Medical History back pain Surgical History tonsillectomy Hospitalization History Seizure activity - [facility] ER. 07/2018
--- OUTSIDE RECORDS SUMMARY | 2020-02-03 17:02 | XMS REPORT ---
Author Author Derek MULLER Organization [facility] Address [address] [place] [address] Care Team Providers Care Prover Name Role Phone DYLAN MULLER Unavailable PROBLEMS Type Condition ICD9-CM Code CTH30-YT Code Onset Dates Condition S tatus SNOMED Code Problem Bladder spasms N32.89 Active 74119 7006 Problem Seasonal allergic rhinitis due to other allergic trigger J30.89 Active 612328488 Problem Anxiety F41.9 Active 51314032 Problem Seasonal allergic rhinitis, unspecified trigger J3 0.2 Active 377057834 Problem Seasonal allergic rhinitis, unspecified trigger J3 0.2 Active 498693691 Problem Mood disorder F39 Active 170090 05 Problem 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 IN [facility] [address] [place] [id number] [address] [place] [address] Nov, Acute non-recurrent frontal sinusitis J01.10 [facility] [address] [address] Oct, 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 and Migraine with aura and without status migrainosus, not intractable G43.109 [place] [address] [address] Apr, [place] [address] [address] March, [facility] WALK IN [facility] [address] [address] Feb, Acute midline low back pain without sciatica M54.5 [place] [address] [address] Feb, Seizures R56.9 [place] [address] [address] Jan, [place] [address] [address] Jan, Bronchitis J40 and Pleurisy R09.1 [facility] WALK IN [facility] [address] [place] [address] Jan, Acute bronchitis, unspecifie d organism J20.9 and Fever R50.9 [place] [address] [address] Jan, [place] [address] [address] Jan, Seizures R56.9 [place] [address] [address] Nov, [place] [address] [address] Nov, [place] [address] [address] Nov, 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 and Palpitations R00.2 [facility] [address] [address] Nov, [facility] [address] [address] Oct, [facility] [address] [address] Sep, [facility] [address] [place] [address] Aug, Seizures R56.9 and Mood disorder F39 [place] [address] [address] Jul, Dysuria R30.0 and Bladder spasms N32.89 [place] [address] [address] Jul, [place] [address] [address] March, Elevated liver enzymes R74.8 and Abnorma l CBC R79.89 [place] [address] [address] March, Encounter for immunization Z23 [place] [address] [address] March, [facility] [address] [address] March, [facility] [address] [address] March, Elevated liver enzymes R74.8 and Abnorma l CBC R79.89 [place] [address] [address] March, Anxiety F41.9 ; Bronchitis J40 and Seaso nal allergic rhinitis due to other allergic trigger J30.89 [facility] [address] [address] March, [place] [address] [id number] [place] [address] Feb, [place] [address] [address] Feb, Pharyngitis due to other organism J02.8 [place] [address] [place] [id number] [place] [address] Feb, Pharyngitis due to other organism J02.8 [facility] [place] [address] [address] Feb, Sore throat J02.9 ; Fatigue, unspecified type R53.83 and Strep pharyngitis J02.0 [facility] [place] [id number] [place] [address] Feb, Acute nasopharyngitis J00 [facility] [place] [address] [address] Feb, Lower abdominal pain R10.30 [facility] [place] [address] [address] Feb, Bladder spasms N32.89 and Ur inary frequency R35.0 [facility] W[facility] IN [place] [address] [address] [place] [id number] [place] [address] Jan, Strep throat J02.0 [facility] [place] [address] [address] Dec, Seasonal allergic rhinitis, unspecified trigger J30.2 [place] [address] [id number] [place] [address] Nov, Acute suppurative otitis media of both e ars without spontaneous rupture of tympanic membranes, recurrence not specified H66.003 [facility] [place] [id number] [place] [address] Nov, Acute suppurative otitis med ia of both ears without spontaneous rupture of tympanic membranes, recurrence not specified H66.003 [facility] [address] [place] [id number] [place] [address] Nov, Acute suppurative otitis med ia of both ears without spontaneous rupture of tympanic membranes, recurrence not specified H66.003 [place] [address] [address] Oct, [place] [address] [address] 21 Jul, 2017 Seizures R56.9 [place] [address] [address] 14 Jul, 2017 Seizures R56.9 ; Other chronic pain G89. 29 ; Pain in left ankle and joints of left foot M25.572 and Allergic rhinitis, unspecified allergic rhinitis trigger, unspecified rhinitis seasonality J30.9 [facility] IN [place] [address] [address] 07 Jul, 2017 Acute seasonal allergic rhin itis due to other allergen J30.89 [facility] IN [place] [address] [address] Jun, Left foot pain M79.672 and L eft lateral ankle pain M25.572 [place] [address] [address] Aug, Allergic rhinitis, unspecified allergic rhinitis trigger, unspecified rhinitis seasonality J30.9 ; Low back pain M54.5 and Other chronic pain G89.29 [facility] [place] [id number] [place] [address] Jul, [facility] W[facility] IN [address] [address] 12 Jul, 2016 Low back pain M54.5 and Othe r chronic pain G89.29 [facility] IN [address] [address] 09 Jul, 2016 Acute maxillary sinusitis, r ecurrence not specified J01.00 [facility] IN [address] [address] Jun, Cellulitis of left lower ext remity L03.116 [facility] WALK IN [address] [address] Apr, Wrist pain, left M25.532 [facility] WALK IN [address] [address] March, Low back pain M54.5 ; Fever, unspecified R50.9 and Strep pharyngitis J02.[address] [facility] IN [address] [address] March, Hordeolum externum of left u pper eyelid H00.014 and Acute follicular conjunctivitis of left eye H10.[address] [address] Jan, Folliculitis L73.[address] [facility] IN [address] [address] Jan, Screen for sexually transmit yayo diseases Z11.[address] [address] Nov, [address] [address] Nov, Gen idiopathic epilepsy, not intractable , 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 [facility] IN [address] [address] Nov, Malaise R53.81 ; Upper respi ratory infection J06.9 and Pharyngitis J02.[address] [facility] IN [address] [address] Nov, Acute pharyngitis, unspecifi ed J02.9 ; Acute upper respiratory infection, unspecified J06.9 ; Other viral agents as the cause of diseases classified elsewhere B97.89 and Allergic rhinitis J30.9 [facility] [address] [facility] [id number] [address] [place] [address] 04 Oct, 2015 Testicular pain N50.8 [facility] [address] [place] [id number] [place] [address] 15 Jul, 2015 Sinusitis 473.9 [facility] [address] [place] [id number] [place] [address] 12 Apr, 2015 Back pain 724.5 [facility] [address] [place] [id number] [place] [address] 11 Apr, 2015 [facility] [address] [place] [id number] [place] [address] Feb, [facility] [address] [place] [id number] [place] [address] Feb, [facility] [address] [place] [id number] [place] [address] Jan, [facility] [address] [place] [id number] [place] [address] Nov, [facility] [address] [place] [id number] [place] [address] Nov, [facility] [address] [place] [id number] [place] [address] Nov, [facility] [address] [place] [id number] [place] [address] Nov, [facility] [address] [place] [id number] [place] [address] Oct, [facility] [address] [place] [id number] [place] [address] Oct, [facility] [address] [place] [id number] [place] [address] Aug, [facility] [address] [place] [id number] [place] [address] Aug, [facility] [address] [place] [id number] [place] [address] Aug, [facility] [address] [id number] [facility] [place] [address] Aug, [facility] [address] [id number] [place] [address] Aug, [facility] [address] [facility] [id number] [place] [address] Aug, [facility] [address] [facility] [id number] [place] [address] Aug, [facility] [address] [facility] [id number] [facility] [place] [address] Aug, [facility] [address] [facility] [id number] [place] [address] Jun, [facility] [address] [facility] [id number] [place] [address] Jun, [facility] [address] [id number] [place] [address] Jun, [facility] [address] [facility] [id number] [place] [address] Jun, [facility] [address] [facility] [id number] [place] [address] Jun, [facility] [address] [facility] [id number] [place] [address] Jun, [facility] [address] [id number] [place] [address] Jun, [facility] [address] [facility] [id number] [place] [address] Jun, [facility] [address] [facility] [id number] [place] [address] Jun, [facility] [address] [id number] [place] [address] Jun, [facility] [address] [facility] [id number] [place] [address] May, [facility] [address] [id number] [place] [address] May, [facility] [address] [id number] [place] [address] March, [facility] [address] [id number] [place] [address] March, [facility] [address] [id number] [place] [address] March, [facility] [address] [id number] [place] [address] March, [facility] [address] [id number] [place] [address] Feb, [facility] [address] [id number] [place] [address] Feb, [facility] [address] [id number] [place] [address] Jan, [facility] [address] [id number] [place] [address] Jan, [facility] [address] [id number] [place] [address] Jan, [facility] [address] [id number] [place] [address] Jan, [facility] [address] [id number] [place] [address] Dec, [facility] [address] [id number] [place] [address] Dec, [facility] [address] [id number] [place] [address] Dec, [facility] [address] [id number] [place] [address] Dec, [facility] [address] [id number] [place] [address] Dec, [facility] [address] [id number] [place] [address] Dec, [facility] [address] [id number] [place] [address] Nov, [facility] [address] [id number] [place] [address] Nov, [facility] [address] [id number] [place] [address] Nov, [facility] [address] [id number] [place] [address] Nov, [facility] [address] [id number] [place] [address] Nov, [facility] [address] [id number] [place] [address] Nov, [facility] [address] [id number] [place] [address] Nov, [facility] [address] [id number] [place] [address] Nov, [facility] [address] [id number] [place] [address] Nov, [facility] [address] [id number] [place] [address] Nov, [facility] [address] [id number] [place] [address] Nov, [facility] [address] [id number] [place] [address] Nov, [facility] [address] [id number] [place] [address] Oct, [facility] [address] [id number] [place] [address] Oct, [facility] [address] [id number] [place] [address] Oct, [facility] [address] [id number] [place] [address] Oct, [facility] [address] [id number] [place] [address] Sep, [facility] [address] [id number] [place] [address] Sep, [facility] [address] [id number] [place] [address] Sep, [facility] [address] [id number] [place] [address] Sep, [facility] [address] [id number] [place] [address] Sep, [facility] [address] [id number] [place] [address] Sep, [facility] [address] [id number] [place] [address] Sep, [facility] [address] [id number] [place] [address] Sep, [facility] [address] [id number] [place] [address] 30 Jul, 2013 [facility] [address] [id number] [place] [address] Jul, [facility] [address] [id number] [place] [address] May, [facility] [address] [id number] [place] [address] Apr, [facility] [address] [id number] [place] [address] 24 Apr, 2013 [facility] [address] [id number] [place] [address] 20 Apr, 2013 [facility] [address] [id number] [place] [address] Apr, [facility] [address] [place] [id number] [place] [address] 13 Apr, 2013 [facility] [address] [id number] [place] [address] 10 Apr, 2013 [facility] [address] [id number] [place] [address] Apr, [facility] [address] [id number] [place] [address] March, [facility] [address] [id number] [place] [address] March, [facility] [address] [id number] [place] [address] Jan, [facility] [address] [id number] [place] [address] Dec, [facility] [address] [id number] [place] [address] Nov, [facility] [address] [id number] [place] [address] Nov, [facility] [address] [id number] [place] [address] Oct, [facility] [address] [id number] [place] [address] Oct, [facility] [address] [id number] [place] [address] Oct, [facility] [address] [id number] [place] [address] Oct, [facility] [address] [id number] [place] [address] Oct, [facility] [address] [id number] [place] [address] Oct, [facility] [address] [id number] [place] [address] Sep, [facility] [address] [id number] [place] [address] Sep, [facility] [address] [id number] [place] [address] Sep, [facility] [address] [id number] [place] [address] Sep, [facility] [address] [id number] [place] [address] Sep, [facility] [address] [id number] [place] [address] Sep, [facility] [address] [id number] [place] [address] Sep, [facility] [address] [id number] [place] [address] Sep, [facility] [address] [id number] [place] [address] Sep, [facility] [address] [id number] [place] [address] Sep, [facility] [address] [id number] [place] [address] Sep, [facility] [address] [id number] [place] [address] Sep, [facility] [address] [id number] [place] [address] Aug, [facility] [address] [id number] [place] [address] Aug, [facility] [address] [id number] [place] [address] Aug, [facility] [address] [id number] [place] [address] Aug, [facility] [address] [id number] [place] [address] Aug, [facility] [address] [id number] [place] [address] Aug, [facility] [address] [place] [id number] [place] [address] Aug, [facility] [address] [id number] [place] [address] Aug, [facility] [address] [id number] [place] [address] Aug, [facility] [address] [id number] [place] [address] Aug, [facility] [address] [id number] [place] [address] Jul, [facility] [address] [id number] [place] [address] Jul, [facility] [address] [id number] [place] [address] Jun, [facility] [address] [id number] [place] [address] Jun, [facility] [address] [id number] [place] [address] Jun, [facility] [address] [id number] [place] [address] May, [facility] [address] [id number] [place] [address] May, [facility] [address] [id number] [place] [address] May, [facility] [address] [id number] [place] [address] May, [facility] [address] [id number] [place] [address] Apr, [facility] [address] [id number] [place] [address] Apr, [facility] [address] [id number] [place] [address] Apr, [facility] [address] [id number] [place] [address] Apr, [facility] [address] [id number] [place] [address] March, [facility] [address] [id number] [place] [address] Jan, [facility] [address] [id number] [place] [address] Dec, [facility] [id number] [place] [address] Dec, [facility] [id number] [place] [address] Oct, [facility] [id number] [place] [address] Oct, [facility] [address] [address] Oct, [facility] [address] [address] Oct, [facility] [address] [address] Oct, [facility] [address] [address] Oct, [facility] [address] [address] Oct, [facility] [address] [address] Oct, [facility] [address] [address] Sep, [facility] [address] [address] Sep, [facility] [address] [address] Sep, [facility] [address] [address] Sep, [facility] [address] [address] Aug, [facility] [address] [address] 15 Jul, 2011 IMMUNIZATIONS No Known Immunizations [...] History tonsillectomy Hospitalization History Seizure activity - [facility]. 07/2018
--- OUTSIDE RECORDS SUMMARY | 2020-02-03 17:03 | XMS REPORT ---
Author Author Derek KEITH Organization [facility] Address [address] [place] [address] Care Team Providers Care Superintendent Distribution Name Role Phone ARMANI KEITH Unavailable PROBLEMS Type Condition ICD9-CM Code [id number] Code Onset Dates Condition S tatus SNOMED Code Problem Bladder spasms N32.89 Active 37947 7006 Problem Seasonal allergic rhinitis due to other allergic trigger J30.89 Active 628842279 Problem Anxiety F41.9 Active 75238921 Problem Seasonal allergic rhinitis, unspecified trigger J3 0.2 Active 308036454 Problem Seasonal allergic rhinitis, unspecified trigger J3 0.2 Active 168116839 Problem Mood disorder F39 Active 828240 05 Problem 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 78321267 Problem Migraine with aura and without status migrainosu s, not intractable G43.109 Active 9088490 Problem Migraine with aura and without status migrainosu s, not intractable G43.109 Active 4500317 ALLERGIES No Information ENCOUNTERS Encounter Location Date Diagnosis [facility] [id number] [place] [address] Oct, [facility] [address] [facility] [id number] [address] [place] [address] Aug, Seasonal allergic rhinitis, unspecified trigger J30.2 [facility] [id number] [place] [address] Aug, Sore throat J02.9 and Obesity, Class II, BMI 35-39.9, no comorbidity E66.9 [facility] [id number] [place] [address] May, 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 [address] [facility] [id number] [address] [place] [address] Feb, Acute midline low back pain without sciatica M54.5 [facility] [address] [address] Feb, Seizures R56.9 [facility] [address] [address] Jan, [facility] [address] [address] Jan, Bronchitis J40 and Pleurisy R09.[address] 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 and Palpitations R00.2 [facility] [address] [address] Nov, [facility] [address] [address] Oct, [facility] [address] [address] Sep, [facility] [address] [address] Aug, Seizures R56.9 and Mood disorder F39 [facility] [address] [address] Jul, Dysuria R30.0 and Bladder spasms N32.89 [facility] [address] [address] Jul, [facility] [address] [address] March, Elevated liver enzymes R74.8 and Abnorma l CBC R79.89 [place] [address] [address] March, Encounter for immunization Z23 [facility] [address] [address] March, [facility] [address] [address] March, [facility] [address] [address] March, Elevated liver enzymes R74.8 and Abnorma l CBC R79.89 [place] [address] [address] March, Anxiety F41.9 ; Bronchitis J40 and Seaso nal allergic rhinitis due to other allergic trigger J30.89 [facility] [address] [address] March, [facility] [address] [address] Feb, [facility] [address] [address] Feb, Pharyngitis due to other organism J02.8 [facility] [address] [address] Feb, Pharyngitis due to other organism J02.8 [facility] [address] [address] Feb, Sore throat J02.9 ; Fatigue, unspecified type R53.83 and Strep pharyngitis J02.0 [facility] [address] [address] Feb, Acute nasopharyngitis J00 [facility] [address] [address] Feb, Lower abdominal pain R10.30 [facility] N [address] [address] Feb, Bladder spasms N32.89 and Ur inary frequency R35.0 [facility] [address] [address] Jan, Strep throat J02.0 [facility] [address] [address] Dec, Seasonal allergic rhinitis, unspecified trigger J30.2 [place] [address] [address] Nov, Acute suppurative otitis media of both e ars without spontaneous rupture of tympanic membranes, recurrence not specified H66.003 [facility] N [address] [address] Nov, Acute suppurative otitis med ia of both ears without spontaneous rupture of tympanic membranes, recurrence not specified H66.003 [facility] N [address] [address] Nov, Acute suppurative otitis med ia of both ears without spontaneous rupture of tympanic membranes, recurrence not specified H66.003 [place] [address] [address] Oct, [place] [address] [address] 21 Jul, 2017 Seizures R56.9 [place] [address] [address] 14 Jul, 2017 Seizures R56.9 ; Other chronic pain G89. 29 ; Pain in left ankle and joints of left foot M25.572 and Allergic rhinitis, unspecified allergic rhinitis trigger, unspecified rhinitis seasonality J30.9 [facility] [address] [address] 07 Jul, 2017 Acute seasonal allergic rhin itis due to other allergen J30.89 [facility] [address] [address] Jun, Left foot pain M79.672 and L eft lateral ankle pain M25.[address] [address] Aug, Allergic rhinitis, unspecified allergic rhinitis trigger, unspecified rhinitis seasonality J30.9 ; Low back pain M54.5 and Other chronic pain G89.29 [facility] [address] [address] Jul, [facility] [address] [address] 12 Jul, 2016 Low back pain M54.5 and Othe r chronic pain G89.29 [facility] [address] [address] Jul, Acute maxillary sinusitis, r ecurrence not specified J01.00 [facility] [address] [address] Jun, Cellulitis of left lower ext remity L03.116 [facility] [address] [address] Apr, Wrist pain, left M25.532 [facility] [address] [id number] [address] [place] [address] March, Low back pain M54.5 ; Fever, unspecified R50.9 and Strep pharyngitis J02.[address] [facility] [place] [address] [address] March, Hordeolum externum of left u pper eyelid H00.014 and Acute follicular conjunctivitis of left eye H10.012 [place] [address] [address] Jan, Folliculitis L73.[address] [facility] [place] [address] [address] Jan, Screen for sexually transmit yayo diseases Z11.3 [place] [address] [address] Nov, [place] [address] [address] Nov, Gen idiopathic epilepsy, not intractable , 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 [facility] [place] [address] [address] Nov, Malaise R53.81 ; Upper respi ratory infection J06.9 and Pharyngitis J02.9 [facility] [place] [address] [address] Nov, Acute pharyngitis, unspecifi ed J02.9 ; Acute upper respiratory infection, unspecified J06.9 ; Other viral agents as the cause of diseases classified elsewhere B97.89 and Allergic rhinitis J30.9 [facility] [address] [address] 04 Oct, 2015 Testicular pain N50.8 [place] [address] [address] 15 Jul, 2015 Sinusitis 473.9 [place] [address] [address] Apr, Back pain 724.5 [facility] [address] [id number] [place] [address] Apr, [facility] [id number] [place] [address] 14 Feb, 2015 [facility] [id number] [place] [address] Feb, [facility] [id number] [place] [address] Jan, [facility] [address] [id number] [place] [address] Nov, [facility] [id number] [place] [address] Nov, [facility] [id number] [place] [address] Nov, [facility] [id number] [place] [address] Nov, [facility] [id number] [place] [address] Oct, [facility] [id number] [place] [address] Oct, [facility] [id number] [place] [address] Aug, [facility] [id number] [place] [address] Aug, [facility] [id number] [place] [address] Aug, [facility] [id number] [place] [address] Aug, [facility] [id number] [place] [address] Aug, [facility] [id number] [place] [address] Aug, [facility] [address] [id number] [place] [address] Aug, [facility] [address] [facility] [id number] [place] [address] Aug, [facility] [address] [facility] [id number] [place] [address] Jun, [facility] [address] [facility] [id number] [place] [address] Jun, [facility] [address] [facility] [id number] [place] [address] Jun, [facility] [address] [id number] [place] [address] Jun, [facility] [address] [id number] [place] [address] Jun, [facility] [address] [id number] [place] [address] Jun, [facility] [address] [facility] [id number] [place] [address] Jun, [facility] [address] [id number] [place] [address] Jun, [facility] [address] [id number] [place] [address] Jun, [facility] [address] [id number] [place] [address] Jun, [facility] [address] [facility] [id number] [place] [address] May, [facility] [address] [facility] [id number] [place] [address] May, [facility] [address] [id number] [place] [address] March, [facility] [address] [id number] [place] [address] March, [facility] [address] [id number] [place] [address] March, [facility] [address] [id number] [place] [address] March, [facility] [address] [id number] [place] [address] Feb, [facility] [address] [id number] [place] [address] Feb, [facility] [address] [id number] [place] [address] Jan, [facility] [address] [id number] [place] [address] Jan, [facility] [address] [id number] [place] [address] Jan, [facility] [address] [id number] [place] [address] Jan, [facility] [address] [id number] [place] [address] Dec, [facility] [address] [id number] [place] [address] Dec, [facility] [address] [id number] [place] [address] Dec, [facility] [address] [id number] [place] [address] Dec, [facility] [address] [id number] [place] [address] Dec, [facility] [address] [id number] [place] [address] Dec, [facility] [address] [id number] [place] [address] Nov, [facility] [address] [id number] [place] [address] Nov, [facility] [address] [id number] [place] [address] Nov, [facility] [address] [id number] [place] [address] Nov, [facility] [address] [id number] [place] [address] Nov, [facility] [address] [id number] [place] [address] Nov, [facility] [address] [id number] [place] [address] Nov, [facility] [address] [id number] [place] [address] Nov, [facility] [address] [id number] [place] [address] Nov, [facility] [address] [id number] [place] [address] Nov, [facility] [address] [id number] [place] [address] Nov, [facility] [address] [id number] [place] [address] Nov, [facility] [address] [id number] [place] [address] Oct, [facility] [address] [id number] [place] [address] Oct, [facility] [address] [id number] [place] [address] Oct, [facility] [address] [id number] [place] [address] Oct, [facility] [address] [id number] [place] [address] Sep, [facility] [address] [id number] [place] [address] Sep, [facility] [address] [id number] [place] [address] Sep, [facility] [address] [id number] [place] [address] Sep, [facility] [address] [id number] [place] [address] Sep, [facility] [address] [id number] [facility] [address] Sep, [facility] [address] [id number] [place] [address] Sep, [facility] [address] [id number] [facility] [address] Sep, [facility] [address] [facility] [id number] [facility] [address] 30 Jul, 2013 [facility] [address] [id number] [place] [address] Jul, [facility] [address] [id number] [place] [address] May, [facility] [address] [id number] [place] [address] Apr, [facility] [address] [id number] [place] [address] 24 Apr, 2013 [facility] [address] [id number] [place] [address] Apr, [facility] [address] [id number] [place] [address] Apr, [facility] [address] [id number] [place] [address] Apr, [facility] [address] [id number] [place] [address] Apr, [facility] [address] [id number] [place] [address] Apr, [facility] [address] [id number] [place] [address] March, [facility] [address] [id number] [place] [address] March, [facility] [address] [id number] [place] [address] Jan, [facility] [address] [id number] [place] [address] Dec, [facility] [address] [id number] [place] [address] Nov, [facility] [address] [id number] [place] [address] Nov, [facility] [address] [id number] [place] [address] Oct, [facility] [address] [id number] [place] [address] Oct, [facility] [address] [id number] [place] [address] Oct, [facility] [address] [id number] [place] [address] Oct, [facility] [address] [id number] [place] [address] Oct, [facility] [address] [id number] [place] [address] Oct, [facility] [address] [id number] [place] [address] Sep, [facility] [address] [id number] [place] [address] Sep, [facility] [address] [id number] [place] [address] Sep, [facility] [address] [id number] [place] [address] Sep, [facility] [id number] [place] [address] Sep, [facility] [address] [id number] [place] [address] Sep, [facility] [address] [id number] [place] [address] Sep, [facility] [address] [id number] [place] [address] Sep, [facility] [address] [id number] [place] [address] Sep, [facility] [address] [id number] [place] [address] Sep, [facility] [address] [id number] [place] [address] Sep, [facility] [address] [id number] [place] [address] Sep, [facility] [address] [id number] [place] [address] Aug, [facility] [address] [id number] [place] [address] Aug, [facility] [id number] [place] [address] Aug, [facility] [address] [id number] [place] [address] Aug, [facility] [address] [id number] [place] [address] Aug, [facility] [address] [id number] [place] [address] Aug, [facility] [address] [id number] [place] [address] Aug, [facility] [address] [id number] [place] [address] Aug, [facility] [address] [id number] [place] [address] Aug, [facility] [id number] [place] [address] 16 Aug, 2012 [facility] [address] [id number] [place] [address] 24 Jul, 2012 [facility] [address] [id number] [place] [address] Jul, [facility] [address] [facility] [id number] [place] [address] Jun, [facility] [address] [id number] [place] [address] Jun, [facility] [address] [id number] [place] [address] Jun, [facility] [address] [id number] [place] [address] May, [facility] [address] [facility] [id number] [place] [address] May, [facility] [address] [id number] [place] [address] May, [facility] [address] [id number] [place] [address] May, [facility] [address] [id number] [place] [address] Apr, [facility] [address] [id number] [place] [address] Apr, [facility] [address] [id number] [place] [address] Apr, [facility] [address] [id number] [place] [address] Apr, [facility] [address] [id number] [place] [address] March, [facility] [address] [id number] [place] [address] Jan, [facility] [address] [id number] [place] [address] Dec, [facility] [address] [id number] [place] [address] Dec, [facility] [address] [id number] [place] [address] Oct, [facility] [id number] [place] [address] 27 Oct, 2011 [facility] [id number] [place] [address] Oct, [facility] [id number] [place] [address] Oct, [facility] [address] [address] 15 Oct, 2011 [facility] [address] [address] 15 Oct, 2011 [facility] [address] [address] Oct, [facility] [address] [address] Oct, [facility] [address] [address] Sep, [facility] [address] [address] Sep, [facility] [id number] [place] [address] Sep, [facility] [address] [address] Sep, [facility] [address] [address] Aug, [facility] [address] [address] 15 Jul, 2011 IMMUNIZATIONS No Known Immunizations SOCIAL HISTORY Never Assessed REASON FOR VISIT PLAN OF CARE VITAL SIGNS Height 74 in 2014-05-31 Weight 248.7 lbs 2014-05-31 Temperature 97.6 degrees Fahrenheit 2014-05-31 Heart Rate 84 bpm 2014-05-31 Respiratory Rate 18 2014-05-31 Blood pressure systolic 124 mmHg 2014-05-31 Blood pressure diastolic 74 mmHg 2014-05-31 MEDICATIONS Unknown Medications RESULTS No Results PROCEDURES No Known procedures INSTRUCTIONS MEDICATIONS ADMINISTERED No Known Medications MEDICAL (GENERAL) HISTORY Type Description Date Medical History seizures Medical History allergic rhinitis Medical History mood disorder Medical History back pain Surgical History tonsillectomy Hospitalization History Seizure activity - [facility]. 07/2018
--- OUTSIDE RECORDS SUMMARY | 2020-02-03 17:03 | XMS REPORT ---
Author Author Derek KEITH Organization [facility] Address [address] [place] [address] Care Team Providers Care Program Evaluator Name Role Phone ARMANI KEITH Unavailable PROBLEMS Type Condition ICD9-CM Code [id number] Code Onset Dates Condition S tatus SNOMED Code Problem Bladder spasms N32.89 Active 34478 7006 Problem Seasonal allergic rhinitis due to other allergic trigger J30.89 Active 188221047 Problem Anxiety F41.9 Active 58503584 Problem Seasonal allergic rhinitis, unspecified trigger J3 0.2 Active 831106445 Problem Seasonal allergic rhinitis, unspecified trigger J3 0.2 Active 213900857 Problem Mood disorder F39 Active 970937 05 Problem 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 64671325 Problem Migraine with aura and without status migrainosu s, not intractable G43.109 Active 2584641 Problem Migraine with aura and without status migrainosu s, not intractable G43.109 Active 5157833 ALLERGIES No Information ENCOUNTERS Encounter Location Date Diagnosis [place] [address] [place] [address] Dec, [facility] [address] [id number] [place] [address] Nov, [facility] IN [facility] [address] [facility] [id number] [address] [place] [address] Nov, Acute non-recurrent frontal sinusitis J01.10 [facility] [address] [id number] [place] [address] Oct, [facility] [address] [facility] [id number] [address] [place] [address] Aug, Seasonal allergic rhinitis, unspecified trigger J30.2 [facility] [address] [address] Aug, Sore throat J02.9 and Obesity, Class II, BMI 35-39.9, no comorbidity E66.9 [place] [address] [address] May, 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 and Migraine with aura and without status migrainosus, not intractable G43.109 [place] [address] [address] Apr, [place] [address] [address] March, [facility] [place] [address] [address] Feb, Acute midline low back pain without sciatica M54.5 [place] [address] [address] Feb, Seizures R56.9 [place] [address] [address] Jan, [place] [address] [address] Jan, Bronchitis J40 and Pleurisy R09.1 [facility] [place] [address] [address] [place] [id number] [place] [address] Jan, Acute bronchitis, unspecifie d organism J20.9 and Fever R50.9 [place] [address] [address] Jan, [place] [address] [address] Jan, Seizures R56.9 [place] [address] [address] Nov, [place] [address] [address] Nov, [place] [address] [place] [id number] Nov, 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 and Palpitations R00.2 [place] [address] [place] [id number] Nov, [facility] [address] [address] Oct, [place] [address] [address] Sep, [place] [address] [place] [address] Aug, Seizures R56.9 and Mood disorder F39 [place] [address] [address] Jul, Dysuria R30.0 and Bladder spasms N32.89 [place] [address] [address] Jul, [place] [address] [address] March, Elevated liver enzymes R74.8 and Abnorma l CBC R79.89 [place] [address] [address] March, Encounter for immunization Z23 [address] [address] March, [place] [address] [address] March, [place] [address] [address] March, Elevated liver enzymes R74.8 and Abnorma l CBC R79.89 [place] [address] [address] March, Anxiety F41.9 ; Bronchitis J40 and Seaso nal allergic rhinitis due to other allergic trigger J30.89 [place] [address] [place] [id number] [place] [address] March, [facility] [address] [address] Feb, [facility] [address] [address] Feb, Pharyngitis due to other organism J02.8 [facility] [address] [address] Feb, Pharyngitis due to other organism J02.8 [facility] N [place] [id number] [place] [address] Feb, Sore throat J02.9 ; Fatigue, unspecified type R53.83 and Strep pharyngitis J02.0 [facility] N [place] [id number] [address] [place] [address] Feb, Acute nasopharyngitis J00 [facility] N [place] [id number] [place] [address] Feb, Lower abdominal pain R10.30 [facility] [address] [place] [address] Feb, Bladder spasms N32.89 and Ur inary frequency R35.0 [facility] [address] [place] [id number] [place] [address] Jan, Strep throat J02.0 [facility] [address] [place] [id number] [place] [address] Dec, Seasonal allergic rhinitis, unspecified trigger J30.2 [place] [address] [address] Nov, Acute suppurative otitis media of both e ars without spontaneous rupture of tympanic membranes, recurrence not specified H66.003 [facility] N [place] [id number] [place] [address] Nov, Acute suppurative otitis med ia of both ears without spontaneous rupture of tympanic membranes, recurrence not specified H66.003 [facility] [place] [address] [address] Nov, Acute suppurative otitis med ia of both ears without spontaneous rupture of tympanic membranes, recurrence not specified H66.003 [place] [address] [address] Oct, [place] [address] [address] 21 Jul, 2017 Seizures R56.9 [place] [address] [address] 14 Jul, 2017 Seizures R56.9 ; Other chronic pain G89. 29 ; Pain in left ankle and joints of left foot M25.572 and Allergic rhinitis, unspecified allergic rhinitis trigger, unspecified rhinitis seasonality J30.9 [facility] [address] [address] 07 Jul, 2017 Acute seasonal allergic rhin itis due to other allergen J30.89 [facility] [address] [address] Jun, Left foot pain M79.672 and L eft lateral ankle pain M25.572 [place] [address] [address] Aug, Allergic rhinitis, unspecified allergic rhinitis trigger, unspecified rhinitis seasonality J30.9 ; Low back pain M54.5 and Other chronic pain G89.29 [facility] N [place] [id number] [place] [address] Jul, [facility] [address] [place] [address] 12 Jul, 2016 Low back pain M54.5 and Othe r chronic pain G89.29 [facility] [address] [place] [address] 09 Jul, 2016 Acute maxillary sinusitis, r ecurrence not specified J01.00 [facility] [address] [address] Jun, Cellulitis of left lower ext remity L03.116 [facility] [address] [address] Apr, Wrist pain, left M25.532 [facility] [address] [address] March, Low back pain M54.5 ; Fever, unspecified R50.9 and Strep pharyngitis J02.0 [facility] IN [address] [address] March, Hordeolum externum of left u pper eyelid H00.014 and Acute follicular conjunctivitis of left eye H10.012 [place] [address] [address] Jan, Folliculitis L73.9 [facility] IN [address] [address] Jan, Screen for sexually transmit yayo diseases Z11.3 [place] [address] [address] Nov, [place] [address] [address] Nov, Gen idiopathic epilepsy, not intractable , 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 [facility] [place] [id number] [address] [place] [address] Nov, Malaise R53.81 ; Upper respi ratory infection J06.9 and Pharyngitis J02.9 [facility] [place] [id number] [address] [place] [address] Nov, Acute pharyngitis, unspecifi ed J02.9 ; Acute upper respiratory infection, unspecified J06.9 ; Other viral agents as the cause of diseases classified elsewhere B97.89 and Allergic rhinitis J30.9 [facility] [address] [facility] [id number] [address] [place] [address] Oct, Testicular pain N50.8 [facility] [address] [place] [id number] [place] [address] 15 Jul, 2015 Sinusitis 473.9 [facility] [address] [address] 12 Apr, 2015 Back pain 724.5 [facility] [address] [address] 11 Apr, 2015 [facility] [address] [address] Feb, [facility] [address] [address] Feb, [facility] [address] [address] Jan, [facility] [address] [address] Nov, [facility] [address] [address] Nov, [facility] [address] [address] Nov, [facility] [address] [address] Nov, [facility] [address] [address] Oct, [facility] [address] [address] Oct, [facility] [address] [address] Aug, [facility] [address] [address] Aug, [facility] [address] [place] [address] Aug, [facility] [address] [id number] [facility] [address] Aug, [facility] [address] [facility] [id number] [facility] [address] Aug, [facility] [address] [id number] [place] [address] Aug, [facility] [address] [facility] [id number] [place] [address] Aug, [facility] [address] [facility] [id number] [facility] [address] Aug, [facility] [address] [id number] [place] [address] Jun, [facility] [address] [id number] [place] [address] Jun, [facility] [address] [id number] [place] [address] Jun, [facility] [address] [facility] [id number] [place] [address] Jun, [facility] [address] [id number] [place] [address] Jun, [facility] [address] [id number] [place] [address] Jun, [facility] [address] [id number] [place] [address] Jun, [facility] [address] [facility] [id number] [place] [address] Jun, [facility] [address] [id number] [place] [address] Jun, [facility] [address] [facility] [id number] [place] [address] Jun, [facility] [address] [id number] [place] [address] May, [facility] [address] [id number] [place] [address] May, [facility] [address] [id number] [place] [address] March, [facility] [address] [id number] [place] [address] March, [facility] [address] [id number] [place] [address] March, [facility] [address] [id number] [place] [address] March, [facility] [address] [id number] [place] [address] Feb, [facility] [address] [id number] [place] [address] Feb, [facility] [address] [id number] [place] [address] Jan, [facility] [address] [id number] [place] [address] Jan, [facility] [address] [id number] [place] [address] Jan, [facility] [address] [id number] [place] [address] Jan, [facility] [address] [id number] [place] [address] Dec, [facility] [address] [id number] [place] [address] Dec, [facility] [address] [id number] [place] [address] Dec, [facility] [address] [id number] [place] [address] Dec, [facility] [address] [id number] [place] [address] Dec, [facility] [address] [id number] [place] [address] Dec, [facility] [address] [id number] [place] [address] Nov, [facility] [address] [id number] [place] [address] Nov, [facility] [address] [id number] [place] [address] Nov, [facility] [address] [id number] [place] [address] Nov, [facility] [address] [id number] [place] [address] Nov, [facility] [address] [id number] [place] [address] Nov, [facility] [address] [id number] [place] [address] Nov, [facility] [address] [id number] [place] [address] Nov, [facility] [address] [id number] [place] [address] Nov, [facility] [address] [id number] [place] [address] Nov, [facility] [address] [id number] [place] [address] Nov, [facility] [address] [id number] [place] [address] Nov, [facility] [address] [id number] [place] [address] Oct, [facility] [address] [id number] [place] [address] Oct, [facility] [address] [id number] [place] [address] Oct, [facility] [address] [id number] [place] [address] Oct, [facility] [address] [id number] [place] [address] Sep, [facility] [address] [id number] [place] [address] Sep, [facility] [address] [id number] [place] [address] Sep, [facility] [address] [id number] [place] [address] Sep, [facility] [address] [id number] [place] [address] Sep, [facility] [address] [id number] [place] [address] Sep, [facility] [address] [id number] [place] [address] Sep, [facility] [address] [id number] [place] [address] Sep, [facility] [address] [id number] [place] [address] 30 Jul, 2013 [facility] [address] [id number] [place] [address] Jul, [facility] [address] [id number] [place] [address] May, [facility] [address] [id number] [place] [address] Apr, [facility] [address] [id number] [place] [address] 24 Apr, 2013 [facility] [address] [id number] [place] [address] Apr, [facility] [address] [id number] [place] [address] Apr, [facility] [address] [id number] [place] [address] Apr, [facility] [address] [id number] [place] [address] Apr, [facility] [address] [id number] [place] [address] Apr, [facility] [address] [id number] [place] [address] March, [facility] [address] [id number] [place] [address] March, [facility] [address] [id number] [place] [address] Jan, [facility] [address] [id number] [place] [address] Dec, [facility] [address] [id number] [place] [address] Nov, [facility] [address] [id number] [place] [address] Nov, [facility] [address] [place] [id number] [place] [address] Oct, [facility] [address] [id number] [place] [address] Oct, [facility] [address] [place] [id number] [place] [address] Oct, [facility] [address] [id number] [place] [address] Oct, [facility] [address] [place] [id number] [place] [address] Oct, [facility] [address] [id number] [place] [address] Oct, [facility] [address] [id number] [place] [address] Sep, [facility] [address] [id number] [place] [address] Sep, [facility] [address] [id number] [place] [address] Sep, [facility] [address] [id number] [place] [address] Sep, [facility] [address] [id number] [place] [address] Sep, [facility] [address] [id number] [place] [address] Sep, [facility] [address] [id number] [place] [address] Sep, [facility] [address] [id number] [place] [address] Sep, [facility] [address] [id number] [place] [address] Sep, [facility] [address] [id number] [place] [address] Sep, [facility] [address] [id number] [place] [address] Sep, [facility] [address] [id number] [place] [address] Sep, [facility] [address] [id number] [place] [address] Aug, [facility] [address] [id number] [place] [address] Aug, [facility] [address] [id number] [place] [address] Aug, [facility] [address] [id number] [place] [address] Aug, [facility] [address] [id number] [place] [address] Aug, [facility] [address] [id number] [place] [address] Aug, [facility] [address] [id number] [place] [address] Aug, [facility] [address] [id number] [place] [address] Aug, [facility] [address] [facility] [id number] [place] [address] Aug, [facility] [address] [id number] [place] [address] Aug, [facility] [address] [id number] [place] [address] Jul, [facility] [address] [id number] [place] [address] Jul, [facility] [address] [id number] [place] [address] Jun, [facility] [address] [id number] [place] [address] Jun, [facility] [address] [id number] [place] [address] Jun, [facility] [address] [id number] [place] [address] May, [facility] [address] [id number] [place] [address] May, [facility] [address] [id number] [place] [address] May, [facility] [address] [id number] [place] [address] May, [facility] [address] [id number] [place] [address] Apr, [facility] [address] [id number] [place] [address] Apr, [facility] [address] [id number] [place] [address] Apr, [facility] [address] [id number] [place] [address] Apr, [facility] [address] [id number] [place] [address] March, [facility] [address] [id number] [place] [address] Jan, [facility] [id number] [place] [address] Dec, [facility] [id number] [place] [address] Dec, [facility] [id number] [place] [address] Oct, [facility] [id number] [place] [address] Oct, [facility] [id number] [place] [address] Oct, [facility] [id number] [place] [address] Oct, [facility] [id number] [place] [address] Oct, [facility] [id number] [place] [address] 15 Oct, 2011 [facility] [id number] [place] [address] Oct, [facility] [id number] [place] [address] 05 Oct, 2011 [facility] [id number] [place] [address] Sep, [facility] [id number] [place] [address] 28 Sep, 2011 [facility] [id number] [place] [address] 15 Sep, 2011 [facility] [id number] [place] [address] 15 Sep, 2011 [facility] [id number] [place] [address] Aug, [facility] [id number] [place] [address] 15 Jul, 2011 IMMUNIZATIONS No Known Immunizations [...] History tonsillectomy Hospitalization History Seizure activity - [facility] ER. 07/2018
--- OUTSIDE RECORDS SUMMARY | 2020-02-03 17:03 | XMS REPORT ---
Author Author Derek KEITH Organization [facility] Address [address] [place] [address] Care Team Providers Care Bowl Turner Name Role Phone ARMANI KEITH Unavailable PROBLEMS Type Condition ICD9-CM Code VJT08-LV Code Onset Dates Condition S tatus SNOMED Code Problem Bladder spasms N32.89 Active 17739 7006 Problem Migraine with aura and without status migrainosu s, not intractable G43.109 Active 3106601 Problem Migraine with aura and without status migrainosu s, not intractable G43.109 Active 2373899 Problem Seasonal allergic rhinitis due to other allergic trigger J30.89 Active 749162724 Problem Anxiety F41.9 Active 05875468 Problem Mood disorder F39 Active 918459 05 Problem 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 [id number] [address] [place] [address] Apr, [facility] [address] [facility] [id number] [address] [place] [address] March, [facility] [address] [facility] [id number] [address] [place] [address] Feb, Acute midline low back pain without sciatica M54.5 [facility] [address] [facility] [id number] [address] [place] [address] Feb, Seizures R56.9 [facility] [address] [place] [id number] [address] [place] [address] Jan, [facility] [address] [place] [id number] [place] [address] 14 Jan, 2019 Bronchitis J40 and Pleurisy R09.1 [facility] [address] [facility] [id number] [address] [place] [address] 12 Jan, 2019 Acute bronchitis, unspecifie d organism J20.9 and Fever R50.9 [facility] [address] [address] Jan, [facility] [address] [address] Jan, Seizures R56.9 [facility] [address] [place] [id number] [place] [address] Nov, [facility] [address] [address] Nov, [facility] [address] [address] Nov, Nonintractable absence epile psy without status epilepticus G40.A09 and Palpitations R00.2 [place] [address] [address] Nov, [facility] [address] [address] Oct, [facility] [address] [address] Sep, [facility] [address] [address] Aug, Seizures R56.9 and Mood diso rder F39 [facility] [address] [place] [id number] [address] [place] [address] 18 Jul, 2018 Dysuria R30.0 and Bladder sp asms N32.89 [place] [address] [place] [address] Jul, [facility] [address] [id number] [address] [place] [address] March, Elevated liver enzymes R74.8 and Abnormal CBC R79.89 [facility] [address] [facility] [id number] [address] [place] [address] March, Encounter for immunization Z 23 [facility] [address] [facility] [id number] [address] [place] [address] March, [facility] [address] [facility] [id number] [address] [place] [address] March, [facility] [address] [facility] [id number] [address] [place] [address] March, Elevated liver enzymes R74.8 and Abnormal CBC R79.89 [facility] [address] [facility] [id number] [address] [place] [address] March, Anxiety F41.9 ; Bronchitis J 40 and Seasonal allergic rhinitis due to other allergic trigger J30.89 [facility] [address] [facility] [id number] [address] [place] [address] March, [facility] [address] [facility] [id number] [address] [place] [address] Feb, [facility] [address] [facility] [id number] [address] [place] [address] Feb, Pharyngitis due to other org anism J02.8 [facility] [address] [facility] [id number] [address] [place] [address] Feb, Pharyngitis due to other org anism J02.8 [facility] [address] [facility] [id number] [address] [place] [address] Feb, Sore throat J02.9 ; Fatigue, unspecified type R53.83 and Strep pharyngitis J02.0 [facility] [address] [facility] [id number] [address] [place] [address] Feb, Acute nasopharyngitis J00 [facility] [address] [address] Feb, Lower abdominal pain R10.30 [facility] [place] [address] [address] Feb, Bladder spasms N32.89 and Ur inary frequency R35.0 [facility] [address] [address] Jan, Strep throat J02.0 [facility] [place] [address] [address] Dec, Seasonal allergic rhinitis, unspecified trigger J30.2 [place] [address] [address] Nov, Acute suppurative otitis med ia of both ears without spontaneous rupture of tympanic membranes, recurrence not specified H66.003 [facility] [place] [address] [address] Nov, Acute suppurative otitis med ia of both ears without spontaneous rupture of tympanic membranes, recurrence not specified H66.003 [facility] [place] [address] [address] Nov, Acute suppurative otitis med ia of both ears without spontaneous rupture of tympanic membranes, recurrence not specified H66.003 [place] [address] [place] [id number] [address] [place] [address] Oct, [place] [address] [address] Jul, Seizures R56.9 [place] [address] [address] 14 Jul, 2017 Seizures R56.9 ; Other chron ic pain G89.29 ; Pain in left ankle and joints of left foot M25.572 and Allergic rhinitis, unspecified allergic rhinitis trigger, unspecified rhinitis seasonality J30.9 [facility] [address] [address] 07 Jul, 2017 Acute seasonal allergic rhin itis due to other allergen J30.89 [facility] [address] [place] [id number] [place] [address] Jun, Left foot pain M79.672 and L eft lateral ankle pain M25.572 [facility] [address] [address] Aug, Allergic rhinitis, unspecifi ed allergic rhinitis trigger, unspecified rhinitis seasonality J30.9 ; Low back pain M54.5 and Other chronic pain G89.29 [facility] [address] [place] [address] Jul, [facility] [address] [place] [address] Jul, Low back pain M54.5 and Othe r chronic pain G89.29 [facility] [address] [place] [address] Jul, Acute maxillary sinusitis, r ecurrence not specified J01.00 [facility] [address] [place] [address] Jun, Cellulitis of left lower ext remity L03.116 [facility] [address] [place] [address] Apr, Wrist pain, left M25.532 [facility] [address] [place] [address] March, Low back pain M54.5 ; Fever, unspecified R50.9 and Strep pharyngitis J02.0 [facility] [address] [place] [address] March, Hordeolum externum of left u pper eyelid H00.014 and Acute follicular conjunctivitis of left eye H10.012 [place] [address] [address] Jan, Folliculitis L73.9 [facility] [place] [address] [address] Jan, Screen for sexually transmit yayo diseases Z11.3 [place] [address] [address] Nov, [place] [address] [address] Nov, Gen idiopathic epilepsy, not intractable, 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 [place] [address] [address] Nov, Malaise R53.81 ; Upper respi ratory infection J06.9 and Pharyngitis J02.9 [place] [address] [address] Nov, Acute pharyngitis, unspecifi ed J02.9 ; Acute upper respiratory infection, unspecified J06.9 ; Other viral agents as the cause of diseases classified elsewhere B97.89 and Allergic rhinitis J30.9 [place] [address] [address] Oct, Testicular pain N50.8 [place] [address] [address] 15 Jul, 2015 Sinusitis 473.9 [place] [address] [address] 12 Apr, 2015 Back pain 724.5 [place] [address] [address] 11 Apr, 2015 [place] [address] [address] 14 Feb, 2015 [facility] [address] [id number] [address] [place] [address], [place] [address] Feb, [facility] [address] [id number] [address] [place] [address], [place] [address] Jan, [facility] [address] [id number] [address] [place] [address], [place] [address] Nov, [facility] [address] [id number] [address] [place] [address], [place] [address] Nov, [facility] [address] [id number] [address] [place] [address], [place] [address] Nov, [facility] [address] [id number] [address] [place] [address], [place] [address] Nov, [facility] [address] [id number] [address] [place] [address], [place] [address] Oct, [facility] [address] [id number] [address] [place] [address], [place] [address] Oct, [facility] [address] [id number] [address] [place] [address], [place] [address] Aug, [facility] [address] [id number] [address] [place] [address] Aug, [facility] [address] [id number] [address] [place] [address] Aug, [facility] [address] [id number] [address] [place] [address] Aug, [facility] [address] [id number] [address] [place] [address], [place] [address] Aug, [facility] [address] [id number] [address] [place] [address], [place] [address] Aug, [facility] [address] [id number] [address] [place] [address] Aug, [facility] [address] [id number] [address] [place] [address] Aug, [facility] [address] [id number] [address] [place] [address], [place] [address] Jun, [facility] [address] [id number] [address] [place] [address], [place] [address] Jun, [facility] [address] [id number] [address] [place] [address], [place] [address] Jun, [facility] [address] [id number] [address] [place] [address], [place] [address] Jun, [facility] [address] [id number] [address] [place] [address], [place] [address] Jun, [facility] [address] [id number] [address] [place] [address], [place] [address] Jun, [facility] [address] [id number] [address] [place] [address], [place] [address] Jun, [facility] [address] [id number] [address] [place] [address], [place] [address] Jun, [facility] [address] [id number] [address] [place] [address], [place] [address] Jun, [facility] [address] [id number] [address] [place] [address], [place] [address] Jun, [facility] [address] [id number] [address] [place] [address], [place] [address] May, [facility] [address] [id number] [address] [place] [address], [place] [address] May, [facility] [address] [id number] [address] [place] [address], [place] [address] March, [facility] [place] [facility] [address] [id number] [address] [place] [address], [place] [address] March, [facility] [address] [id number] [address] [place] [address], [place] [address] March, [facility] [place] [facility] [address] [id number] [address] [place] [address], [place] [address] March, [facility] [address] [id number] [address] [place] [address], [place] [address] Feb, [facility] [place] [facility] [address] [id number] [address] [place] [address], [place] [address] Feb, [facility] [address] [id number] [address] [place] [address], [place] [address] Jan, [facility] [address] [id number] [address] [place] [address], [place] [address] Jan, [facility] [address] [id number] [address] [place] [address], [place] [address] Jan, [facility] [address] [id number] [address] [place] [address], [place] [address] Jan, [facility] [address] [id number] [address] [place] [address], [place] [address] Dec, [facility] [address] [id number] [address] [place] [address], [place] [address] Dec, [facility] [address] [id number] [address] [place] [address], [place] [address] Dec, [facility] [address] [id number] [address] [place] [address], [place] [address] Dec, [facility] [address] [id number] [address] [place] [address], [place] [address] Dec, [facility] [address] [id number] [address] [place] [address], [place] [address] Dec, [facility] [place] [facility] [address] [id number] [address] [place] [address], [place] [address] Nov, [facility] [place] [facility] [address] [id number] [address] [place] [address], [place] [address] Nov, [facility] [place] [facility] [address] [id number] [address] [place] [address], [place] [address] Nov, [facility] [address] [id number] [address] [place] [address], [place] [address] Nov, [facility] [address] [id number] [address] [place] [address], [place] [address] Nov, [facility] [address] [id number] [address] [place] [address], [place] [address] Nov, [facility] [address] [id number] [address] [place] [address], [place] [address] Nov, [facility] [address] [id number] [address] [place] [address], [place] [address] Nov, [facility] [address] [id number] [address] [place] [address], [place] [address] Nov, [facility] [address] [id number] [address] [place] [address], [place] [address] Nov, [facility] [address] [id number] [address] [place] [address], [place] [address] Nov, [facility] [address] [id number] [address] [place] [address], [place] [address] Nov, [facility] [address] [id number] [address] [place] [address], [place] [address] Oct, [facility] [address] [id number] [address] [place] [address], [place] [address] Oct, [facility] [address] [id number] [address] [place] [address], [place] [address] Oct, [facility] [address] [id number] [address] [place] [address], [place] [address] Oct, [facility] [address] [id number] [address] [place] [address], [place] [address] Sep, [facility] [address] [id number] [address] [place] [address], [place] [address] Sep, [facility] [address] [id number] [address] [place] [address], [place] [address] Sep, [facility] [address] [id number] [address] [place] [address], [place] [address] Sep, [facility] [address] [id number] [address] [place] [address], [place] [address] Sep, [facility] [address] [id number] [address] [place] [address], [place] [address] Sep, [facility] [address] [id number] [address] [place] [address], [place] [address] Sep, [facility] [address] [id number] [address] [place] [address], [place] [address] 18 Sep, 2013 [facility] [address] [id number] [address] [place] [address], [place] [address] 30 Jul, 2013 [facility] [address] [id number] [address] [place] [address], [place] [address] 26 Jul, 2013 [facility] [address] [id number] [address] [place] [address], [place] [address] 17 May, 2013 [facility] [address] [id number] [address] [place] [address], [place] [address] 26 Apr, 2013 [facility] [address] [id number] [address] [place] [address], [place] [address] 24 Apr, 2013 [facility] [address] [id number] [address] [place] [address], [place] [address] 20 Apr, 2013 [facility] [address] [id number] [address] [place] [address], [place] [address] Apr, [facility] [address] [id number] [address] [place] [address], [place] [address] 13 Apr, 2013 [facility] [address] [id number] [address] [place] [address], [place] [address] 10 Apr, 2013 [facility] [address] [id number] [address] [place] [address], [place] [address] Apr, [facility] [address] [id number] [address] [place] [address], [place] [address] March, [facility] [address] [id number] [address] [place] [address], [place] [address] March, [facility] [address] [id number] [address] [place] [address], [place] [address] Jan, [facility] [address] [id number] [address] [place] [address], [place] [address] Dec, [facility] [address] [id number] [address] [place] [address], [place] [address] Nov, [facility] [address] [id number] [address] [place] [address], [place] [address] Nov, [facility] [address] [id number] [address] [place] [address], [place] [address] Oct, [facility] [address] [id number] [address] [place] [address], [place] [address] Oct, [facility] [address] [id number] [address] [place] [address], [place] [address] Oct, [facility] [address] [id number] [address] [place] [address], [place] [address] Oct, [facility] [address] [id number] [address] [place] [address], [place] [address] Oct, [facility] [address] [id number] [address] [place] [address], [place] [address] Oct, [facility] [address] [id number] [address] [place] [address], [place] [address] Sep, [facility] [address] [id number] [address] [place] [address], [place] [address] Sep, [facility] [address] [id number] [address] [place] [address], [place] [address] Sep, [facility] [address] [id number] [address] [place] [address], [place] [address] Sep, [facility] [address] [id number] [address] [place] [address], [place] [address] Sep, [facility] [address] [id number] [address] [place] [address], [place] [address] Sep, [facility] [address] [id number] [address] [place] [address], [place] [address] Sep, [facility] [address] [id number] [address] [place] [address], [place] [address] Sep, [facility] [address] [id number] [address] [place] [address], [place] [address] Sep, [facility] [address] [id number] [address] [place] [address], [place] [address] Sep, [facility] [address] [id number] [address] [place] [address], [place] [address] Sep, [facility] [address] [id number] [address] [place] [address], [place] [address] Sep, [facility] [address] [id number] [address] [place] [address], [place] [address] Aug, [facility] [address] [id number] [address] [place] [address] Aug, [facility] [address] [id number] [address] [place] [address], [place] [address] Aug, [facility] [address] [id number] [address] [place] [id number] Aug, [facility] [address] [id number] [address] [place] [address] Aug, [facility] [address] [id number] [address] [place] [address] Aug, [facility] [address] [id number] [address] [place] [id number] Aug, [facility] [address] [id number] [address] [place] [address], [place] [address] Aug, [facility] [address] [id number] [address] [place] [address], [place] [address] Aug, [facility] [address] [id number] [address] [place] [address], [place] [address] Aug, [facility] [address] [id number] [address] [place] [address], [place] [address] 24 Jul, 2012 [facility] [address] [id number] [address] [place] [address], [place] [address] Jul, [facility] [address] [id number] [address] [place] [address], [place] [address] Jun, [facility] [address] [id number] [address] [place] [address], [place] [address] Jun, [facility] [address] [id number] [address] [place] [address], [place] [address] Jun, [facility] [address] [id number] [address] [place] [address], [place] [address] May, [facility] [address] [id number] [address] [place] [address], [place] [address] May, [facility] [address] [id number] [address] [place] [address], [place] [address] May, [facility] [address] [id number] [address] [place] [address], [place] [address] May, [facility] [address] [id number] [address] [place] [address], [place] [address] Apr, [facility] [address] [id number] [address] [place] [address], [place] [address] Apr, [facility] [address] [id number] [address] [place] [address], [place] [address] Apr, [facility] [address] [id number] [address] [place] [address], [place] [address] Apr, [facility] [address] [id number] [address] [place] [address], [place] [address] March, [facility] [address] [id number] [address] [place] [address], [place] [address] Jan, [facility] [address] [id number] [address] [place] [address], [place] [address] Dec, [facility] [address] [id number] [address] [place] [address], [place] [address] Dec, [facility] [address] [id number] [address] [place] [address], [place] [address] Oct, [facility] [address] [id number] [address] [place] [address], [place] [address] Oct, [facility] [address] [id number] [address] [place] [address], [place] [address] Oct, [facility] [address] [id number] [address] [place] [address], [place] [address] Oct, [facility] [address] [id number] [address] [place] [address], [place] [address] 15 Oct, 2011 [facility] [address] [id number] [address] [place] [address], [place] [address] Oct, [facility] [address] [id number] [address] [place] [address], [place] [address] Oct, [facility] [address] [id number] [address] [place] [address], [place] [address] 05 Oct, 2011 [facility] [address] [id number] [address] [place] [address], [place] [address] Sep, [facility] [address] [id number] [address] [place] [address], [place] [address] 28 Sep, 2011 [facility] [address] [id number] [address] [place] [address], [place] [address] 15 Sep, 2011 [facility] [address] [id number] [address] [place] [id number] 15 Sep, 2011 [facility] [address] [facility] [id number] [address] [place] [phone] 11 Aug, 2011 [facility] [address] [facility] [id number] [address] [place] [phone] 15 Jul, 2011 IMMUNIZATIONS No Known Immunizations SOCIAL HISTORY Never Assessed REASON FOR VISIT PLAN OF CARE VITAL SIGNS MEDICATIONS No Known Medications RESULTS No Results PROCEDURES No Known procedures INSTRUCTIONS MEDICATIONS ADMINISTERED No Known Medications MEDICAL (GENERAL) HISTORY Type Description Date Medical History seizures Medical History allergic rhinitis Medical History mood disorder Medical History back pain Surgical History tonsillectomy Hospitalization History Seizure activity - [facility]. 07/2018
--- OUTSIDE RECORDS SUMMARY | 2020-02-03 17:03 | XMS REPORT ---
Author Author Derek RIBEIRO Organization [facility] Address [address] [place] [address] Care Team Providers Care Loan Representative Name Role Phone HOSSEIN RIBEIRO Unavailable PROBLEMS Type Condition ICD9-CM Code FAZ85-YR Code Onset Dates Condition S tatus SNOMED Code Problem Bladder spasms N32.89 Active 07947 7006 Problem Seasonal allergic rhinitis due to other allergic trigger J30.89 Active 422659788 Problem Anxiety F41.9 Active 67863706 Problem Seasonal allergic rhinitis, unspecified trigger J3 0.2 Active 257705461 Problem Seasonal allergic rhinitis, unspecified trigger J3 0.2 Active 306775546 Problem Mood disorder F39 Active 976339 05 Problem 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 83964416 Problem Migraine with aura and without status migrainosu s, not intractable G43.109 Active 3367494 Problem Migraine with aura and without status migrainosu s, not intractable G43.109 Active 3383102 ALLERGIES No Information ENCOUNTERS Encounter Location Date Diagnosis [facility] [address] [address] Nov, [facility] [address] [facility] [id number] [address] [place] [address] Nov, Acute non-recurrent frontal sinusitis J01.10 [facility] [address] [id number] [place] [address] Oct, [facility] [address] [facility] [id number] [address] [place] [address] Aug, Seasonal allergic rhinitis, unspecified trigger J30.2 [facility] [address] [address] Aug, Sore throat J02.9 and Obesity, Class II, BMI 35-39.9, no comorbidity E66.9 [place] [address] [address] May, 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 and Migraine with aura and without status migrainosus, not intractable G43.109 [place] [address] [address] Apr, [place] [address] [address] March, [facility] [address] [place] [address] Feb, Acute midline low back pain without sciatica M54.5 [place] [address] [address] Feb, Seizures R56.9 [place] [address] [address] Jan, [place] [address] [address] Jan, Bronchitis J40 and Pleurisy R09.1 [facility] [address] [place] [id number] [address] [place] [address] Jan, Acute bronchitis, unspecifie d organism J20.9 and Fever R50.9 [place] [address] [address] Jan, [place] [address] [address] Jan, Seizures R56.9 [place] [address] [address] Nov, [place] [address] [address] Nov, [place] [address] [address] Nov, 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 and Palpitations R00.2 [facility] [address] [address] Nov, [facility] [address] [place] [id number] Oct, [facility] [address] [address] Sep, [facility] [address] [place] [address] Aug, Seizures R56.9 and Mood disorder F39 [place] [address] [address] Jul, Dysuria R30.0 and Bladder spasms N32.89 [place] [address] [address] Jul, [place] [address] [address] March, Elevated liver enzymes R74.8 and Abnorma l CBC R79.89 [place] [address] [address] March, Encounter for immunization Z23 [place] [address] [address] March, [place] [address] [address] March, [facility] [address] [address] March, Elevated liver enzymes R74.8 and Abnorma l CBC R79.89 [place] [address] [address] March, Anxiety F41.9 ; Bronchitis J40 and Seaso nal allergic rhinitis due to other allergic trigger J30.89 [facility] [address] [address] March, [place] [address] [id number] [place] [address] Feb, [place] [address] [address] Feb, Pharyngitis due to other organism J02.8 [place] [address] [address] Feb, Pharyngitis due to other organism J02.8 [facility] [address] [address] Feb, Sore throat J02.9 ; Fatigue, unspecified type R53.83 and Strep pharyngitis J02.0 [facility] [address] [address] Feb, Acute nasopharyngitis J00 [facility] [address] [address] Feb, Lower abdominal pain R10.30 [facility] [address] [address] Feb, Bladder spasms N32.89 and Ur inary frequency R35.0 [facility] N [place] [id number] [address] [place] [address] Jan, Strep throat J02.0 [facility] [address] [address] Dec, Seasonal allergic rhinitis, unspecified trigger J30.2 [place] [address] [id number] [place] [address] Nov, Acute suppurative otitis media of both e ars without spontaneous rupture of tympanic membranes, recurrence not specified H66.003 [facility] N [place] [id number] [address] [place] [address] Nov, Acute suppurative otitis med ia of both ears without spontaneous rupture of tympanic membranes, recurrence not specified H66.003 [facility] [address] [address] Nov, Acute suppurative otitis med ia of both ears without spontaneous rupture of tympanic membranes, recurrence not specified H66.003 [place] [address] [address] Oct, [place] [address] [address] 21 Jul, 2017 Seizures R56.9 [place] [address] [address] 14 Jul, 2017 Seizures R56.9 ; Other chronic pain G89. 29 ; Pain in left ankle and joints of left foot M25.572 and Allergic rhinitis, unspecified allergic rhinitis trigger, unspecified rhinitis seasonality J30.9 [facility] [place] [address] [address] 07 Jul, 2017 Acute seasonal allergic rhin itis due to other allergen J30.89 [facility] [place] [address] [address] Jun, Left foot pain M79.672 and L eft lateral ankle pain M25.572 [place] [address] [address] Aug, Allergic rhinitis, unspecified allergic rhinitis trigger, unspecified rhinitis seasonality J30.9 ; Low back pain M54.5 and Other chronic pain G89.29 [facility] N [address] [address] Jul, [facility] [address] [address] 12 Jul, 2016 Low back pain M54.5 and Othe r chronic pain G89.29 [facility] [address] [address] 09 Jul, 2016 Acute maxillary sinusitis, r ecurrence not specified J01.00 [facility] [place] [address] [place] [address] Jun, Cellulitis of left lower ext remity L03.116 [facility] [address] [address] Apr, Wrist pain, left M25.532 [facility] [address] [address] March, Low back pain M54.5 ; Fever, unspecified R50.9 and Strep pharyngitis J02.0 [facility] [place] [address] [address] March, Hordeolum externum of left u pper eyelid H00.014 and Acute follicular conjunctivitis of left eye H10.012 [place] [address] [address] Jan, Folliculitis L73.9 [facility] [place] [address] [address] Jan, Screen for sexually transmit yayo diseases Z11.3 [place] [address] [address] Nov, [place] [address] [address] Nov, Gen idiopathic epilepsy, not intractable , 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 [facility] [address] [address] Nov, Malaise R53.81 ; Upper respi ratory infection J06.9 and Pharyngitis J02.9 [facility] [address] [address] Nov, Acute pharyngitis, unspecifi ed J02.9 ; Acute upper respiratory infection, unspecified J06.9 ; Other viral agents as the cause of diseases classified elsewhere B97.89 and Allergic rhinitis J30.9 [facility] [address] [place] [address] [place] [address] 04 Oct, 2015 Testicular pain N50.8 [facility] [address] [address] 15 Jul, 2015 Sinusitis 473.9 [facility] [address] [place] [id number] [place] [address] 12 Apr, 2015 Back pain 724.5 [facility] [address] [address] 11 Apr, 2015 [facility] [address] [place] [id number] [place] [address] Feb, [facility] [address] [address] Feb, [facility] [address] [place] [id number] [place] [address] Jan, [facility] [address] [address] Nov, [facility] [address] [place] [id number] [place] [address] Nov, [facility] [address] [address] Nov, [facility] [address] [place] [id number] [place] [address] Nov, [facility] [address] [place] [id number] [place] [address] Oct, [facility] [address] [place] [id number] [place] [address] Oct, [facility] [address] [place] [id number] [place] [address] Aug, [facility] [address] [place] [id number] [place] [address] Aug, [facility] [address] [place] [id number] [place] [address] Aug, [facility] [address] [place] [address] Aug, [facility] [address] [id number] [place] [address] Aug, [facility] [address] [facility] [id number] [place] [address] Aug, [facility] [address] [id number] [place] [address] Aug, [facility] [address] [facility] [id number] [place] [address] Aug, [facility] [address] [id number] [place] [address] Jun, [facility] [address] [id number] [place] [address] Jun, [facility] [address] [id number] [place] [address] Jun, [facility] [address] [id number] [place] [address] Jun, [facility] [address] [facility] [id number] [place] [address] Jun, [facility] [address] [id number] [place] [address] Jun, [facility] [address] [id number] [place] [address] Jun, [facility] [address] [id number] [place] [address] Jun, [facility] [address] [id number] [place] [address] Jun, [facility] [address] [id number] [place] [address] Jun, [facility] [address] [id number] [place] [address] May, [facility] [address] [id number] [place] [address] May, [facility] [address] [id number] [place] [address] March, [facility] [address] [id number] [place] [address] March, [facility] [address] [id number] [place] [address] March, [facility] [address] [id number] [place] [address] March, [facility] [address] [id number] [place] [address] Feb, [facility] [address] [id number] [place] [address] Feb, [facility] [address] [id number] [place] [address] Jan, [facility] [address] [id number] [place] [address] Jan, [facility] [address] [id number] [place] [address] Jan, [facility] [address] [id number] [place] [address] Jan, [facility] [address] [id number] [place] [address] Dec, [facility] [address] [id number] [place] [address] Dec, [facility] [address] [id number] [place] [address] Dec, [facility] [address] [id number] [place] [address] Dec, [facility] [address] [id number] [place] [address] Dec, [facility] [address] [id number] [place] [address] Dec, [facility] [address] [id number] [place] [address] Nov, [facility] [address] [facility] [id number] [place] [address] Nov, [facility] [address] [id number] [place] [address] Nov, [facility] [address] [id number] [place] [address] Nov, [facility] [address] [id number] [place] [address] Nov, [facility] [address] [id number] [place] [address] Nov, [facility] [address] [id number] [place] [address] Nov, [facility] [address] [id number] [place] [address] Nov, [facility] [address] [id number] [place] [address] Nov, [facility] [address] [id number] [place] [address] Nov, [facility] [address] [id number] [place] [address] Nov, [facility] [address] [id number] [place] [address] Nov, [facility] [address] [id number] [place] [address] Oct, [facility] [address] [id number] [place] [address] Oct, [facility] [address] [id number] [place] [address] Oct, [facility] [address] [id number] [place] [address] Oct, [facility] [address] [id number] [place] [address] Sep, [facility] [address] [id number] [place] [address] 29 Sep, 2013 [facility] [address] [id number] [place] [address] Sep, [facility] [address] [id number] [place] [address] Sep, [facility] [address] [id number] [place] [address] Sep, [facility] [address] [id number] [place] [address] Sep, [facility] [address] [id number] [place] [address] Sep, [facility] [address] [id number] [place] [address] Sep, [facility] [address] [id number] [place] [address] 30 Jul, 2013 [facility] [address] [id number] [place] [address] Jul, [facility] [address] [id number] [place] [address] May, [facility] [address] [id number] [place] [address] Apr, [facility] [address] [id number] [place] [address] 24 Apr, 2013 [facility] [address] [id number] [place] [address] Apr, [facility] [address] [id number] [place] [address] Apr, [facility] [address] [place] [id number] [place] [address] Apr, [facility] [address] [id number] [place] [address] 10 Apr, 2013 [facility] [address] [id number] [place] [address] Apr, [facility] [address] [id number] [place] [address] March, [facility] [address] [id number] [place] [address] March, [facility] [address] [id number] [place] [address] Jan, [facility] [address] [id number] [place] [address] Dec, [facility] [address] [id number] [place] [address] Nov, [facility] [address] [id number] [place] [address] Nov, [facility] [address] [id number] [place] [address] Oct, [facility] [address] [place] [id number] [place] [address] Oct, [facility] [address] [id number] [place] [address] Oct, [facility] [address] [place] [id number] [place] [address] Oct, [facility] [address] [id number] [place] [address] Oct, [facility] [address] [place] [id number] [place] [address] Oct, [facility] [address] [id number] [place] [address] Sep, [facility] [address] [id number] [place] [address] Sep, [facility] [address] [id number] [place] [address] Sep, [facility] [address] [place] [id number] [place] [address] Sep, [facility] [address] [id number] [place] [address] Sep, [facility] [address] [id number] [place] [address] Sep, [facility] [address] [id number] [place] [address] Sep, [facility] [address] [id number] [place] [address] Sep, [facility] [address] [id number] [place] [address] Sep, [facility] [address] [id number] [place] [address] Sep, [facility] [address] [id number] [place] [address] Sep, [facility] [address] [id number] [place] [address] Sep, [facility] [address] [id number] [place] [address] Aug, [facility] [address] [id number] [place] [address] Aug, [facility] [address] [id number] [place] [address] Aug, [facility] [address] [id number] [place] [address] Aug, [facility] [address] [id number] [place] [address] Aug, [facility] [address] [id number] [place] [address] Aug, [facility] [address] [id number] [place] [address] Aug, [facility] [address] [id number] [place] [address] Aug, [facility] [address] [id number] [place] [address] Aug, [facility] [address] [id number] [place] [address] Aug, [facility] [address] [id number] [place] [address] Jul, [facility] [address] [id number] [place] [address] Jul, [facility] [address] [id number] [place] [address] Jun, [facility] [address] [id number] [place] [address] Jun, [facility] [address] [id number] [place] [address] Jun, [facility] [address] [id number] [place] [address] May, [facility] [address] [id number] [place] [address] May, [facility] [address] [id number] [place] [address] May, [facility] [address] [id number] [place] [address] May, [facility] [address] [id number] [place] [address] Apr, [facility] [address] [id number] [place] [address] Apr, [facility] [address] [id number] [place] [address] Apr, [facility] [address] [id number] [place] [address] Apr, [facility] [address] [id number] [place] [address] March, [facility] [address] [id number] [place] [address] Jan, [facility] [address] [id number] [place] [address] Dec, [facility] [id number] [place] [address] Dec, [facility] [id number] [place] [address] Oct, [facility] [id number] [place] [address] Oct, [facility] [id number] [place] [address] Oct, [facility] [id number] [place] [address] Oct, [facility] [address] [address] Oct, [facility] [id number] [place] [address] Oct, [facility] [address] [address] Oct, [facility] [id number] [place] [address] Oct, [facility] [address] [address] Sep, [facility] [id number] [place] [address] Sep, [facility] [address] [address] Sep, [facility] [id number] [place] [address] Sep, [facility] [address] [address] Aug, [facility] [id number] [place] [address] 15 Jul, 2011 IMMUNIZATIONS No Known Immunizations [...] History tonsillectomy Hospitalization History Seizure activity - [facility]. 07/2018
--- OUTSIDE RECORDS SUMMARY | 2020-02-03 17:04 | XMS REPORT ---
Author Author Derek KEITH Organization [facility] Address [address] [place] [address] Care Team Providers Care Senior Compensation Analyst Name Role Phone ARMANI KEITH Unavailable PROBLEMS Type Condition ICD9-CM Code COV32-JZ Code Onset Dates Condition S tatus SNOMED Code Problem Bladder spasms N32.89 Active 58824 7006 Problem Migraine with aura and without status migrainosu s, not intractable G43.109 Active 6964255 Problem Migraine with aura and without status migrainosu s, not intractable G43.109 Active 8853189 Problem Seasonal allergic rhinitis due to other allergic trigger J30.89 Active 011757709 Problem Anxiety F41.9 Active 96823278 Problem Mood disorder F39 Active 037433 05 Problem 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 13646743 ALLERGIES No Information ENCOUNTERS Encounter Location Date Diagnosis [facility] [address] [address] May, Nonintractable absence epile psy without status epilepticus G40.A09 and Migraine with aura and without status migrainosus, not intractable G43.109 [facility] [address] [facility] [id number] [address] [place] [address] Apr, [facility] [address] [facility] [id number] [address] [place] [phone] March, [facility] [address] [facility] [id number] [address] [place] [address] Feb, Acute midline low back pain without sciatica M54.5 [facility] [address] [facility] [id number] [address] [place] [address] Feb, Seizures R56.9 [facility] [address] [place] [id number] [address] [place] [id number] Jan, [facility] [address] [place] [id number] [place] [id number] 14 Jan, 2019 Bronchitis J40 and Pleurisy R09.1 [facility] [address] [facility] [id number] [address] [place] [address] 12 Jan, 2019 Acute bronchitis, unspecifie d organism J20.9 and Fever R50.9 [facility] [address] [address] Jan, [facility] [address] [address] Jan, Seizures R56.9 [facility] [address] [place] [id number] [place] [address] Nov, [facility] [address] [address] Nov, [facility] [address] [address] Nov, Nonintractable absence epile psy without status epilepticus G40.A09 and Palpitations R00.2 [place] [address] [address] Nov, [facility] [address] [address] Oct, [facility] [address] [address] Sep, [facility] [address] [address] Aug, Seizures R56.9 and Mood diso rder F39 [facility] [address] [place] [id number] [address] [place] [id number] 18 Jul, 2018 Dysuria R30.0 and Bladder sp asms N32.89 [place] [address] [place] [address] Jul, [facility] [address] [id number] [address] [place] [address] March, Elevated liver enzymes R74.8 and Abnormal CBC R79.89 [facility] [address] [facility] [id number] [address] [place] [address] March, Encounter for immunization Z 23 [facility] [address] [facility] [id number] [address] [place] [address] March, [facility] [address] [facility] [id number] [address] [place] [address] March, [facility] [address] [facility] [id number] [address] [place] [address] March, Elevated liver enzymes R74.8 and Abnormal CBC R79.89 [facility] [address] [facility] [id number] [address] [place] [address] March, Anxiety F41.9 ; Bronchitis J 40 and Seasonal allergic rhinitis due to other allergic trigger J30.89 [facility] [address] [facility] [id number] [address] [place] [address] March, [facility] [address] [facility] [id number] [address] [place] [address] Feb, [facility] [address] [facility] [id number] [address] [place] [address] Feb, Pharyngitis due to other org anism J02.8 [facility] [address] [facility] [id number] [address] [place] [address] Feb, Pharyngitis due to other org anism J02.8 [facility] [address] [facility] [id number] [address] [place] [address] Feb, Sore throat J02.9 ; Fatigue, unspecified type R53.83 and Strep pharyngitis J02.0 [facility] [address] [facility] [id number] [address] [place] [address] Feb, Acute nasopharyngitis J00 [facility] [address] [address] Feb, Lower abdominal pain R10.30 [facility] [place] [address] [address] Feb, Bladder spasms N32.89 and Ur inary frequency R35.0 [facility] [address] [address] Jan, Strep throat J02.0 [facility] [place] [address] [address] Dec, Seasonal allergic rhinitis, unspecified trigger J30.2 [place] [address] [address] Nov, Acute suppurative otitis med ia of both ears without spontaneous rupture of tympanic membranes, recurrence not specified H66.003 [facility] [place] [address] [address] Nov, Acute suppurative otitis med ia of both ears without spontaneous rupture of tympanic membranes, recurrence not specified H66.003 [facility] [place] [address] [address] Nov, Acute suppurative otitis med ia of both ears without spontaneous rupture of tympanic membranes, recurrence not specified H66.003 [place] [address] [place] [id number] [place] [address] Oct, [place] [address] [address] Jul, Seizures R56.9 [place] [address] [address] 14 Jul, 2017 Seizures R56.9 ; Other chron ic pain G89.29 ; Pain in left ankle and joints of left foot M25.572 and Allergic rhinitis, unspecified allergic rhinitis trigger, unspecified rhinitis seasonality J30.9 [facility] [address] [address] 07 Jul, 2017 Acute seasonal allergic rhin itis due to other allergen J30.89 [facility] [address] [place] [id number] [place] [address] Jun, Left foot pain M79.672 and L eft lateral ankle pain M25.572 [facility] [address] [address] Aug, Allergic rhinitis, unspecifi ed allergic rhinitis trigger, unspecified rhinitis seasonality J30.9 ; Low back pain M54.5 and Other chronic pain G89.29 [facility] [address] [place] [address] Jul, [facility] [address] [place] [address] Jul, Low back pain M54.5 and Othe r chronic pain G89.[address] [facility] [address] [place] [address] Jul, Acute maxillary sinusitis, r ecurrence not specified J01.00 [facility] [address] [place] [address] Jun, Cellulitis of left lower ext remity L03.116 [facility] [address] [place] [address] Apr, Wrist pain, left M25.532 [facility] [address] [place] [address] March, Low back pain M54.5 ; Fever, unspecified R50.9 and Strep pharyngitis J02.0 [facility] [address] [place] [address] March, Hordeolum externum of left u pper eyelid H00.014 and Acute follicular conjunctivitis of left eye H10.012 [place] [address] [address] Jan, Folliculitis L73.9 [facility] [place] [address] [address] Jan, Screen for sexually transmit yayo diseases Z11.3 [place] [address] [address] Nov, [place] [address] [address] Nov, Gen idiopathic epilepsy, not intractable, 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 [place] [address] [address] Nov, Malaise R53.81 ; Upper respi ratory infection J06.9 and Pharyngitis J02.9 [place] [address] [address] Nov, Acute pharyngitis, unspecifi ed J02.9 ; Acute upper respiratory infection, unspecified J06.9 ; Other viral agents as the cause of diseases classified elsewhere B97.89 and Allergic rhinitis J30.9 [place] [address] [address] Oct, Testicular pain N50.8 [place] [address] [address] 15 Jul, 2015 Sinusitis 473.9 [place] [address] [address] 12 Apr, 2015 Back pain 724.5 [place] [address] [address] 11 Apr, 2015 [place] [address] [address] 14 Feb, 2015 [facility] [address] [id number] [address] [place] [address], [place] [address] Feb, [facility] [address] [id number] [address] [place] [address], [place] [address] Jan, [facility] [address] [id number] [address] [place] [address], [place] [address] Nov, [facility] [address] [id number] [address] [place] [address], [place] [address] Nov, [facility] [address] [id number] [address] [place] [address], [place] [address] Nov, [facility] [address] [id number] [address] [place] [address], [place] [address] Nov, [facility] [address] [id number] [address] [place] [address], [place] [address] Oct, [facility] [address] [id number] [address] [place] [address], [place] [address] Oct, [facility] [address] [id number] [address] [place] [address], [place] [address] Aug, [facility] [address] [id number] [address] [place] [address] Aug, [facility] [address] [id number] [address] [place] [address] Aug, [facility] [address] [id number] [address] [place] [address] Aug, [facility] [address] [id number] [address] [place] [address], [place] [address] Aug, [facility] [address] [id number] [address] [place] [address], [place] [address] Aug, [facility] [address] [id number] [address] [place] [address] Aug, [facility] [address] [id number] [address] [place] [address] Aug, [facility] [address] [id number] [address] [place] [address], [place] [address] Jun, [facility] [address] [id number] [address] [place] [address], [place] [address] Jun, [facility] [address] [id number] [address] [place] [address], [place] [address] Jun, [facility] [address] [id number] [address] [place] [address], [place] [address] Jun, [facility] [address] [id number] [address] [place] [address], [place] [address] Jun, [facility] [address] [id number] [address] [place] [address], [place] [address] Jun, [facility] [address] [id number] [address] [place] [address], [place] [address] Jun, [facility] [address] [id number] [address] [place] [address], [place] [address] Jun, [facility] [address] [id number] [address] [place] [address], [place] [address] Jun, [facility] [address] [id number] [address] [place] [address], [place] [address] Jun, [facility] [address] [id number] [address] [place] [address], [place] [address] May, [facility] [address] [id number] [address] [place] [address], [place] [address] May, [facility] [address] [id number] [address] [place] [address], [place] [address] March, [facility] [place] [facility] [address] [id number] [address] [place] [address], [place] [address] March, [facility] [address] [id number] [address] [place] [address], [place] [address] March, [facility] [place] [facility] [address] [id number] [address] [place] [address], [place] [address] March, [facility] [address] [id number] [address] [place] [address], [place] [address] Feb, [facility] [place] [facility] [address] [id number] [address] [place] [address], [place] [address] Feb, [facility] [address] [id number] [address] [place] [address], [place] [address] Jan, [facility] [address] [id number] [address] [place] [address], [place] [address] Jan, [facility] [address] [id number] [address] [place] [address], [place] [address] Jan, [facility] [address] [id number] [address] [place] [address], [place] [address] Jan, [facility] [address] [id number] [address] [place] [address], [place] [address] Dec, [facility] [address] [id number] [address] [place] [address], [place] [address] Dec, [facility] [address] [id number] [address] [place] [address], [place] [address] Dec, [facility] [address] [id number] [address] [place] [address], [place] [address] Dec, [facility] [address] [id number] [address] [place] [address], [place] [address] Dec, [facility] [address] [id number] [address] [place] [address], [place] [address] Dec, [facility] [place] [facility] [address] [id number] [address] [place] [address], [place] [address] Nov, [facility] [place] [facility] [address] [id number] [address] [place] [address], [place] [address] Nov, [facility] [place] [facility] [address] [id number] [address] [place] [address], [place] [address] Nov, [facility] [address] [id number] [address] [place] [address], [place] [address] Nov, [facility] [address] [id number] [address] [place] [address], [place] [address] Nov, [facility] [address] [id number] [address] [place] [address], [place] [address] Nov, [facility] [address] [id number] [address] [place] [address], [place] [address] Nov, [facility] [address] [id number] [address] [place] [address], [place] [address] Nov, [facility] [address] [id number] [address] [place] [address], [place] [address] Nov, [facility] [address] [id number] [address] [place] [address], [place] [address] Nov, [facility] [address] [id number] [address] [place] [address], [place] [address] Nov, [facility] [address] [id number] [address] [place] [address], [place] [address] Nov, [facility] [address] [id number] [address] [place] [address], [place] [address] Oct, [facility] [address] [id number] [address] [place] [address], [place] [address] Oct, [facility] [address] [id number] [address] [place] [address], [place] [address] Oct, [facility] [address] [id number] [address] [place] [address], [place] [address] Oct, [facility] [address] [id number] [address] [place] [address], [place] [address] Sep, [facility] [address] [id number] [address] [place] [address], [place] [address] Sep, [facility] [address] [id number] [address] [place] [address], [place] [address] Sep, [facility] [address] [id number] [address] [place] [address], [place] [address] Sep, [facility] [address] [id number] [address] [place] [address], [place] [address] Sep, [facility] [address] [id number] [address] [place] [address], [place] [address] Sep, [facility] [address] [id number] [address] [place] [address], [place] [address] Sep, [facility] [address] [id number] [address] [place] [address], [place] [address] 18 Sep, 2013 [facility] [address] [id number] [address] [place] [address], [place] [address] 30 Jul, 2013 [facility] [address] [id number] [address] [place] [address], [place] [address] 26 Jul, 2013 [facility] [address] [id number] [address] [place] [address], [place] [address] 17 May, 2013 [facility] [address] [id number] [address] [place] [address], [place] [address] 26 Apr, 2013 [facility] [address] [id number] [address] [place] [address], [place] [address] 24 Apr, 2013 [facility] [address] [id number] [address] [place] [address], [place] [address] 20 Apr, 2013 [facility] [address] [id number] [address] [place] [address], [place] [address] Apr, [facility] [address] [id number] [address] [place] [address], [place] [address] 13 Apr, 2013 [facility] [address] [id number] [address] [place] [address], [place] [address] 10 Apr, 2013 [facility] [address] [id number] [address] [place] [address], [place] [address] Apr, [facility] [address] [id number] [address] [place] [address], [place] [address] March, [facility] [address] [id number] [address] [place] [address], [place] [address] March, [facility] [address] [id number] [address] [place] [address], [place] [address] Jan, [facility] [address] [id number] [address] [place] [address], [place] [address] Dec, [facility] [address] [id number] [address] [place] [address], [place] [address] Nov, [facility] [address] [id number] [address] [place] [address], [place] [address] Nov, [facility] [address] [id number] [address] [place] [address], [place] [address] Oct, [facility] [address] [id number] [address] [place] [address], [place] [address] Oct, [facility] [address] [id number] [address] [place] [address], [place] [address] Oct, [facility] [address] [id number] [address] [place] [address], [place] [address] Oct, [facility] [address] [id number] [address] [place] [address], [place] [address] Oct, [facility] [address] [id number] [address] [place] [address], [place] [address] Oct, [facility] [address] [id number] [address] [place] [address], [place] [address] Sep, [facility] [address] [id number] [address] [place] [address], [place] [address] Sep, [facility] [address] [id number] [address] [place] [address], [place] [address] Sep, [facility] [address] [id number] [address] [place] [address], [place] [address] Sep, [facility] [address] [id number] [address] [place] [address], [place] [address] Sep, [facility] [address] [id number] [address] [place] [address], [place] [address] Sep, [facility] [address] [id number] [address] [place] [address], [place] [address] Sep, [facility] [address] [id number] [address] [place] [address], [place] [id number] Sep, [facility] [address] [id number] [address] [place] [address], [place] [id number] Sep, [facility] [address] [id number] [address] [place] [address], [place] [id number] Sep, [facility] [address] [id number] [address] [place] [address], [place] [id number] Sep, [facility] [address] [id number] [address] [place] [address], [place] [id number] Sep, [facility] [address] [id number] [address] [place] [address], [place] [id number] Aug, [facility] [address] [id number] [address] [place] [id number] Aug, [facility] [address] [id number] [address] [place] [address], [place] [id number] Aug, [facility] [address] [id number] [address] [place] [id number] Aug, [facility] [address] [id number] [address] [place] [id number] Aug, [facility] [address] [id number] [address] [place] [id number] Aug, [facility] [address] [id number] [address] [place] [id number] Aug, [facility] [address] [id number] [address] [place] [address], [place] [id number] Aug, [facility] [address] [id number] [address] [place] [address], [place] [id number] Aug, [facility] [address] [id number] [address] [place] [address], [place] [id number] Aug, [facility] [address] [id number] [address] [place] [address], [place] [id number] 24 Jul, 2012 [facility] [address] [id number] [address] [place] [address], [place] [id number] Jul, [facility] [address] [id number] [address] [place] [address], [place] [id number] Jun, [facility] [address] [id number] [address] [place] [address], [place] [id number] Jun, [facility] [address] [id number] [address] [place] [address], [place] [id number] Jun, [facility] [address] [id number] [address] [place] [address], [place] [id number] May, [facility] [address] [id number] [address] [place] [address], [place] [id number] May, [facility] [address] [id number] [address] [place] [address], [place] [id number] May, [facility] [address] [id number] [address] [place] [address], [place] [id number] May, [facility] [address] [id number] [address] [place] [address], [place] [id number] Apr, [facility] [address] [id number] [address] [place] [address], [place] [id number] Apr, [facility] [address] [id number] [address] [place] [address], [place] [id number] Apr, [facility] [address] [id number] [address] [place] [address], [place] [id number] Apr, [facility] [address] [id number] [address] [place] [address], [place] [id number] March, [facility] [address] [id number] [address] [place] [address], [place] [id number] Jan, [facility] [address] [id number] [address] [place] [address], [place] [id number] Dec, [facility] [address] [id number] [address] [place] [address], [place] [id number] Dec, [facility] [address] [id number] [address] [place] [address], [place] [id number] Oct, [facility] [address] [id number] [address] [place] [address], [place] [id number] Oct, [facility] [address] [id number] [address] [place] [address], [place] [id number] Oct, [facility] [address] [id number] [address] [place] [address], [place] [id number] Oct, [facility] [address] [id number] [address] [place] [address], [place] [id number] 15 Oct, 2011 [facility] [address] [id number] [address] [place] [address], [place] [id number] Oct, [facility] [address] [id number] [address] [place] [address], [place] [id number] Oct, [facility] [address] [id number] [address] [place] [address], [place] [id number] 05 Oct, 2011 [facility] [address] [id number] [address] [place] [address], [place] [id number] Sep, [facility] [address] [id number] [address] [place] [address], [place] [id number] 28 Sep, 2011 [facility] [address] [id number] [address] [place] [address], [place] [id number] 15 Sep, 2011 [facility] [address] [id number] [address] [place] [id number] 15 Sep, 2011 [facility] [address] [facility] [id number] [address] [place] [id number] 11 Aug, 2011 [facility] [address] [facility] [id number] [address] [place] [id number] 15 Jul, 2011 IMMUNIZATIONS Vaccine Route Administration Date Status FLU Vaccine (History) Unknown Sep 18, 2014 Administer ed SOCIAL HISTORY Never Assessed REASON FOR VISIT PLAN OF CARE VITAL SIGNS Height 74 in 2014-09-18 Weight 251.69 lbs 2014-09-18 Temperature 98.4 degrees Fahrenheit 2014-09-18 Heart Rate 77 bpm 2014-09-18 Respiratory Rate 16 2014-09-18 Blood pressure systolic 102 mmHg 2014-09-18 Blood pressure diastolic 70 mmHg 2014-09-18 MEDICATIONS No Known Medications RESULTS No Results PROCEDURES Procedure Date Ordered Result Body Site MEASURE BLOOD OXYGEN LEVEL Sep 18, 2014 INSTRUCTIONS MEDICATIONS ADMINISTERED No Known Medications MEDICAL (GENERAL) HISTORY Type Description Date Medical History seizures Medical History allergic rhinitis Medical History mood disorder Medical History back pain Surgical History tonsillectomy Hospitalization History Seizure activity - [facility]. 07/2018
--- OUTSIDE RECORDS SUMMARY | 2020-02-03 17:04 | XMS REPORT ---
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 Design Engineer Name Role Phone ARMANI KEITH Unavailable PROBLEMS Type Condition ICD9-CM Code [id number] Code Onset Dates Condition S tatus SNOMED Code Problem Bladder spasms N32.89 Active 54882 7006 Problem Migraine with aura and without status migrainosu s, not intractable G43.109 Active 5788537 Problem Migraine with aura and without status migrainosu s, not intractable G43.109 Active 2567685 Problem Seasonal allergic rhinitis due to other allergic trigger J30.89 Active 010552926 Problem Anxiety F41.9 Active 35211924 Problem Mood disorder F39 Active 542626 05 Problem 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 [id number] ALLERGIES No Information ENCOUNTERS Encounter Location Date Diagnosis [facility] [address] [address] May, Nonintractable absence epile psy without status epilepticus G40.A09 and Migraine with aura and without status migrainosus, not intractable G43.109 [facility] [address] [facility]] [id number] [address] [place] [address] Apr, [facility] [address] [facility]] [id number] [address] [place] [address] March, [facility] [address] [facility]NOTE [facility]] [id number] [address] [place] [address] Feb, Acute midline low back pain without sciatica M54.5 [facility] [address] [facility]] [id number] [address] [place] [address] Feb, Seizures R56.9 [facility] [address] [place] [id number] [address] [place] [address] Jan, [facility] [address] [place] [id number] [place] [address] 14 Jan, 2019 Bronchitis J40 and Pleurisy R09.1 [facility] [address] [facility]] [id number] [address] [place] [address] 12 Jan, 2019 Acute bronchitis, unspecifie d organism J20.9 and Fever R50.9 [facility] [address] [address] Jan, [facility] [address] [address] Jan, Seizures R56.9 [facility] [address] [place] [id number] [place] [address] Nov, [facility] [address] [address] Nov, [facility] [address] [address] Nov, Nonintractable absence epile psy without status epilepticus G40.A09 and Palpitations R00.2 [place] [address] [address] Nov, [facility] [address] [address] Oct, [facility] [address] [address] Sep, [facility] [address] [address] Aug, Seizures R56.9 and Mood diso rder F39 [facility] [address] [place] [id number] [address] [place] [address] 18 Jul, 2018 Dysuria R30.0 and Bladder sp asms N32.89 [place] [address] [place] [address] Jul, [facility] [address] [id number] [address] [place] [address] March, Elevated liver enzymes R74.8 and Abnormal CBC R79.89 [facility] [address] [facility]] [id number] [address] [place] [address] March, Encounter for immunization Z 23 [facility] [address] [facility]] [id number] [address] [place] [address] March, [facility] [address] [facility]] [id number] [address] [place] [address] March, [facility] [address] [facility]] [id number] [address] [place] [address] March, Elevated liver enzymes R74.8 and Abnormal CBC R79.89 [facility] [address] [facility]] [id number] [address] [place] [address] March, Anxiety F41.9 ; Bronchitis J 40 and Seasonal allergic rhinitis due to other allergic trigger J30.89 [facility] [address] [facility] 3] [id number] [address] [place] [address] March, [facility] [address] [facility]] [id number] [address] [place] [address] Feb, [facility] [address] [facility]] [id number] [address] [place] [address] Feb, Pharyngitis due to other org anism J02.8 [facility] [address] [facility]] [id number] [address] [place] [address] Feb, Pharyngitis due to other org anism J02.8 [facility] [address] [facility]] [id number] [address] [place] [address] Feb, Sore throat J02.9 ; Fatigue, unspecified type R53.83 and Strep pharyngitis J02.0 [facility] [address] [facility]] [id number] [address] [place] [address] Feb, Acute nasopharyngitis J00 [facility] [address] [address] Feb, Lower abdominal pain R10.30 [facility] WALK IN [place] [address] [address] Feb, Bladder spasms N32.89 and Ur inary frequency R35.0 [facility] [address] [address] Jan, Strep throat J02.0 [facility] WALK IN [place] [address] [address] Dec, Seasonal allergic rhinitis, unspecified trigger J30.2 [place] [address] [address] Nov, Acute suppurative otitis med ia of both ears without spontaneous rupture of tympanic membranes, recurrence not specified H66.003 [facility] WALK IN [place] [address] [address] Nov, Acute suppurative otitis med ia of both ears without spontaneous rupture of tympanic membranes, recurrence not specified H66.003 [facility] WALK IN [place] [address] [address] Nov, Acute suppurative otitis med ia of both ears without spontaneous rupture of tympanic membranes, recurrence not specified H66.003 [place] [address] [place] [id number] [address] [place] [address] Oct, [place] [address] [address] Jul, Seizures R56.9 [place] [address] [address] 14 Jul, 2017 Seizures R56.9 ; Other chron ic pain G89.29 ; Pain in left ankle and joints of left foot M25.572 and Allergic rhinitis, unspecified allergic rhinitis trigger, unspecified rhinitis seasonality J30.9 [facility] [place] [facility] [address] [address] 07 Jul, 2017 Acute seasonal allergic rhin itis due to other allergen J30.89 [facility] [place] [facility] N [place] [id number] [place] [address] Jun, Left foot pain M79.672 and L eft lateral ankle pain M25.572 [facility] [address] [address] Aug, Allergic rhinitis, unspecifi ed allergic rhinitis trigger, unspecified rhinitis seasonality J30.9 ; Low back pain M54.5 and Other chronic pain G89.29 [facility] [place] [facility] [address] [place] [address] Jul, [facility] [place] [facility] [address] [place] [address] Jul, Low back pain M54.5 and Othe r chronic pain G89.29 [facility] [facility] [address] [place] [address] Jul, Acute maxillary sinusitis, r ecurrence not specified J01.00 [facility] [place] [facility] [address] [place] [address] Jun, Cellulitis of left lower ext remity L03.116 [facility] [facility] [address] [place] [address] Apr, Wrist pain, left M25.532 [facility] [facility] [address] [place] [address] March, Low back pain M54.5 ; Fever, unspecified R50.9 and Strep pharyngitis J02.0 [facility] [place] [facility] [address] [place] [address] March, Hordeolum externum of left u pper eyelid H00.014 and Acute follicular conjunctivitis of left eye H10.012 [place] [address] [address] Jan, Folliculitis L73.9 [facility] IN [place] [address] [address] Jan, Screen for sexually transmit yayo diseases Z11.3 [place] [address] [address] Nov, [place] [address] [address] Nov, Gen idiopathic epilepsy, not intractable, 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 [place] [address] [address] Nov, Malaise R53.81 ; Upper respi ratory infection J06.9 and Pharyngitis J02.9 [place] [address] [address] Nov, Acute pharyngitis, unspecifi ed J02.9 ; Acute upper respiratory infection, unspecified J06.9 ; Other viral agents as the cause of diseases classified elsewhere B97.89 and Allergic rhinitis J30.9 [place] [address] [address] Oct, Testicular pain N50.8 [place] [address] [address] 15 Jul, 2015 Sinusitis 473.9 [place] [address] [address] 12 Apr, 2015 Back pain 724.5 [place] [address] [address] 11 Apr, 2015 [place] [address] [address] 14 Feb, 2015 [facility] [address] [id number] [address] [place] [address], [place] [address] Feb, [facility] [address] [id number] [address] [place] [address], [place] [address] Jan, [facility] [address] [id number] [address] [place] [address], [place] [address] Nov, [facility] [address] [id number] [address] [place] [address], [place] [address] Nov, [facility] [address] [id number] [address] [place] [address], [place] [address] Nov, [facility] [address] [id number] [address] [place] [address], [place] [address] Nov, [facility] [address] [id number] [address] [place] [address], [place] [address] Oct, [facility] [address] [id number] [address] [place] [address], [place] [address] Oct, [facility] [address] [id number] [address] [place] [address], [place] [address] Aug, [facility] [address] [id number] [address] [place] [address] Aug, [facility] [address] [id number] [address] [place] [address] Aug, [facility] [address] [id number] [address] [place] [address] Aug, [facility] [address] [id number] [address] [place] [address], [place] [address] Aug, [facility] [address] [id number] [address] [place] [address], [place] [address] Aug, [facility] [address] [id number] [address] [place] [address] Aug, [facility] [address] [id number] [address] [place] [address] Aug, [facility] [address] [id number] [address] [place] [address], [place] [address] Jun, [facility] [address] [id number] [address] [place] [address], [place] [address] Jun, [facility] [address] [id number] [address] [place] [address], [place] [address] Jun, [facility] [address] [id number] [address] [place] [address], [place] [address] Jun, [facility] [address] [id number] [address] [place] [address], [place] [address] Jun, [facility] [address] [id number] [address] [place] [address], [place] [address] Jun, [facility] [address] [id number] [address] [place] [address], [place] [address] Jun, [facility] [address] [id number] [address] [place] [address], [place] [address] Jun, [facility] [address] [id number] [address] [place] [address], [place] [address] Jun, [facility] [address] [id number] [address] [place] [address], [place] [address] Jun, [facility] [address] [id number] [address] [place] [address], [place] [address] May, [facility] [address] [id number] [address] [place] [address], [place] [address] May, [facility] [address] [id number] [address] [place] [address], [place] [address] March, [facility] [place] [facility] [address] [id number] [address] [place] [address], [place] [address] March, [facility] [address] [id number] [address] [place] [address], [place] [address] March, [facility] [place] [facility] [address] [id number] [address] [place] [address], [place] [address] March, [facility] [address] [id number] [address] [place] [address], [place] [address] Feb, [facility] [place] [facility] [address] [id number] [address] [place] [address], [place] [address] Feb, [facility] [address] [id number] [address] [place] [address], [place] [address] Jan, [facility] [address] [id number] [address] [place] [address], [place] [address] Jan, [facility] [address] [id number] [address] [place] [address], [place] [address] Jan, [facility] [address] [id number] [address] [place] [address], [place] [address] Jan, [facility] [address] [id number] [address] [place] [address], [place] [address] Dec, [facility] [address] [id number] [address] [place] [address], [place] [address] Dec, [facility] [address] [id number] [address] [place] [address], [place] [address] Dec, [facility] [address] [id number] [address] [place] [address], [place] [address] Dec, [facility] [address] [id number] [address] [place] [address], [place] [address] Dec, [facility] [address] [id number] [address] [place] [address], [place] [address] Dec, [facility] [place] [facility] [address] [id number] [address] [place] [address], [place] [address] Nov, [facility] [place] [facility] [address] [id number] [address] [place] [address], [place] [address] Nov, [facility] [place] [facility] [address] [id number] [address] [place] [address], [place] [address] Nov, [facility] [address] [id number] [address] [place] [address], [place] [address] Nov, [facility] [address] [id number] [address] [place] [address], [place] [address] Nov, [facility] [address] [id number] [address] [place] [address], [place] [address] Nov, [facility] [address] [id number] [address] [place] [address], [place] [address] Nov, [facility] [address] [id number] [address] [place] [address], [place] [address] Nov, [facility] [address] [id number] [address] [place] [address], [place] [address] Nov, [facility] [address] [id number] [address] [place] [address], [place] [address] Nov, [facility] [address] [id number] [address] [place] [address], [place] [address] Nov, [facility] [address] [id number] [address] [place] [address], [place] [address] Nov, [facility] [address] [id number] [address] [place] [address], [place] [address] Oct, [facility] [address] [id number] [address] [place] [address], [place] [address] Oct, [facility] [address] [id number] [address] [place] [address], [place] [address] Oct, [facility] [address] [id number] [address] [place] [address], [place] [address] Oct, [facility] [address] [id number] [address] [place] [address], [place] [address] Sep, [facility] [address] [id number] [address] [place] [address], [place] [address] Sep, [facility] [address] [id number] [address] [place] [address], [place] [address] Sep, [facility] [address] [id number] [address] [place] [address], [place] [address] Sep, [facility] [address] [id number] [address] [place] [address], [place] [address] Sep, [facility] [address] [id number] [address] [place] [address], [place] [address] Sep, [facility] [address] [id number] [address] [place] [address], [place] [address] Sep, [facility] [address] [id number] [address] [place] [address], [place] [address] 18 Sep, 2013 [facility] [address] [id number] [address] [place] [address], [place] [address] 30 Jul, 2013 [facility] [address] [id number] [address] [place] [address], [place] [address] 26 Jul, 2013 [facility] [address] [id number] [address] [place] [address], [place] [address] 17 May, 2013 [facility] [address] [id number] [address] [place] [address], [place] [address] 26 Apr, 2013 [facility] [address] [id number] [address] [place] [address], [place] [address] 24 Apr, 2013 [facility] [address] [id number] [address] [place] [address], [place] [address] 20 Apr, 2013 [facility] [address] [id number] [address] [place] [address], [place] [address] Apr, [facility] [address] [id number] [address] [place] [address], [place] [address] 13 Apr, 2013 [facility] [address] [id number] [address] [place] [address], [place] [address] 10 Apr, 2013 [facility] [address] [id number] [address] [place] [address], [place] [address] Apr, [facility] [address] [id number] [address] [place] [address], [place] [address] March, [facility] [address] [id number] [address] [place] [address], [place] [address] March, [facility] [address] [id number] [address] [place] [address], [place] [address] Jan, [facility] [address] [id number] [address] [place] [address], [place] [address] Dec, [facility] [address] [id number] [address] [place] [address], [place] [address] Nov, [facility] [address] [id number] [address] [place] [address], [place] [address] Nov, [facility] [address] [id number] [address] [place] [address], [place] [address] Oct, [facility] [address] [id number] [address] [place] [address], [place] [address] Oct, [facility] [address] [id number] [address] [place] [address], [place] [id number] Oct, [facility] [address] [id number] [address] [place] [address], [place] [id number] Oct, [facility] [address] [id number] [address] [place] [address], [place] [id number] Oct, [facility] [address] [id number] [address] [place] [address], [place] [id number] Oct, [facility] [address] [id number] [address] [place] [address], [place] [id number] Sep, [facility] [address] [id number] [address] [place] [address], [place] [id number] Sep, [facility] [address] [id number] [address] [place] [address], [place] [id number] Sep, [facility] [address] [id number] [address] [place] [address], [place] [id number] Sep, [facility] [address] [id number] [address] [place] [address], [place] [id number] Sep, [facility] [address] [id number] [address] [place] [address], [place] [id number] Sep, [facility] [address] [id number] [address] [place] [address], [place] [id number] Sep, [facility] [address] [id number] [address] [place] [address], [place] [id number] Sep, [facility] [address] [id number] [address] [place] [address], [place] [id number] Sep, [facility] [address] [id number] [address] [place] [address], [place] [address] Sep, [facility] [address] [id number] [address] [place] [address], [place] [address] Sep, [facility] [address] [id number] [address] [place] [address], [place] [id number] Sep, [facility] [address] [id number] [address] [place] [address], [place] [id number] Aug, [facility] [address] [id number] [address] [place] [id number] Aug, [facility] [address] [id number] [address] [place] [address], [place] [id number] Aug, [facility] [address] [id number] [address] [place] [id number] Aug, [facility] [address] [id number] [address] [place] [id number] Aug, [facility] [address] [id number] [address] [place] [id number] Aug, [facility] [address] [id number] [address] [place] [id number] Aug, [facility] [address] [id number] [address] [place] [address], [place] [address] Aug, [facility] [address] [id number] [address] [place] [address], [place] [id number] Aug, [facility] [address] [id number] [address] [place] [address], [place] [id number] Aug, [facility] [address] [id number] [address] [place] [address], [place] [id number] 24 Jul, 2012 [facility] [address] [id number] [address] [place] [address], [place] [id number] Jul, [facility] [address] [id number] [address] [place] [address], [place] [id number] Jun, [facility] [address] [id number] [address] [place] [address], [place] [id number] Jun, [facility] [address] [id number] [address] [place] [address], [place] [id number] Jun, [facility] [address] [id number] [address] [place] [address], [place] [id number] May, [facility] [address] [id number] [address] [place] [address], [place] [id number] May, [facility] [address] [id number] [address] [place] [address], [place] [id number] May, [facility] [address] [id number] [address] [place] [address], [place] [id number] May, [facility] [address] [id number] [address] [place] [address], [place] [id number] Apr, [facility] [address] [id number] [address] [place] [address], [place] [address] Apr, [facility] [address] [id number] [address] [place] [address], [place] [id number] Apr, [facility] [address] [id number] [address] [place] [address], [place] [id number] Apr, [facility] [address] [id number] [address] [place] [address], [place] [id number] March, [facility] [address] [id number] [address] [place] [address], [place] [id number] Jan, [facility] [address] [id number] [address] [place] [address], [place] [id number] Dec, [facility] [address] [id number] [address] [place] [address], [place] [id number] Dec, [facility] [address] [id number] [address] [place] [address], [place] [id number] Oct, [facility] [address] [id number] [address] [place] [address], [place] [id number] Oct, [facility] [address] [id number] [address] [place] [address], [place] [id number] Oct, [facility] [address] [id number] [address] [place] [address], [place] [id number] Oct, [facility] [address] [id number] [address] [place] [address], [place] [id number] 15 Oct, 2011 [facility] [address] [id number] [address] [place] [address], [place] [id number] Oct, [facility] [address] [id number] [address] [place] [address], [place] [id number] Oct, [facility] [address] [id number] [address] [place] [address], [place] [id number] 05 Oct, 2011 [facility] [address] [id number] [address] [place] [address], [place] [id number] Sep, [facility] [address] [id number] [address] [place] [address], [place] [id number] 28 Sep, 2011 [facility] [address] [id number] [address] [place] [address], [place] [id number] 15 Sep, 2011 [facility] [address] [id number] [address] [place] [id number] 15 Sep, 2011 [facility] [address] [facility]NOTE 3] [id number] [address] [place] [id number] 11 Aug, 2011 [facility] [address] [facility]NOTE 3] [id number] [address] [place] [id number] 15 Jul, 2011 IMMUNIZATIONS No Known Immunizations SOCIAL HISTORY Never Assessed REASON FOR VISIT PLAN OF CARE VITAL SIGNS Height 74 in 2014-07-11 Weight 246 lbs 2014-07-11 Temperature 97.4 degrees Fahrenheit 2014-07-11 Heart Rate 84 bpm 2014-07-11 Respiratory Rate 18 2014-07-11 Blood pressure systolic 112 mmHg 2014-07-11 Blood pressure diastolic 80 mmHg 2014-07-11 MEDICATIONS No Known Medications RESULTS No Results PROCEDURES Procedure Date Ordered Result Body Site ASSAY, DIPROPYLACETIC ACID Jul 11, 2014 EXC TR-EXT B9 DASH 0.6-1 CM Jul 11, 2014 VENIPUNCT, ROUTINE* Jul 11, 2014 INSTRUCTIONS MEDICATIONS ADMINISTERED No Known Medications MEDICAL (GENERAL) HISTORY Type Description Date Medical History seizures Medical History allergic rhinitis Medical History mood disorder Medical History back pain Surgical History tonsillectomy Hospitalization History Seizure activity - [facility]. 07/2018
--- OUTSIDE RECORDS SUMMARY | 2020-02-03 17:04 | XMS REPORT ---
Author Author Derek Marley Doctor Organization [facility] Address Unknown Phone Unavailable Care Team Providers Care Fishing Guide Name Role Phone Migration, Doctor Unavailable Unavailable PROBLEMS Type Condition ICD9-CM Code YYS67-EN Code Onset Dates Condition S tatus SNOMED Code Problem Bladder spasms N32.89 Active 32133 7006 Problem Migraine with aura and without status migrainosu s, not intractable G43.109 Active 3869600 Problem Migraine with aura and without status migrainosu s, not intractable G43.109 Active 1639590 Problem Seasonal allergic rhinitis due to other allergic trigger J30.89 Active 496363185 Problem Anxiety F41.9 Active 97469066 Problem Mood disorder F39 Active 452256 05 Problem 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 90721805 ALLERGIES No Information ENCOUNTERS Encounter Location Date Diagnosis [facility] [place] [address] [facility] [id number] [address] [place] [address] May, Nonintractable absence epile psy without status epilepticus G40.A09 and Migraine with aura and without status migrainosus, not intractable G43.109 [facility] [place] [address] [facility] [id number] [address] [place] [address] Apr, [facility] [place] [address] [facility] [id number] [address] [place] [address] March, [facility] [address] [facility] [id number] [address] [place] [address] Feb, Acute midline low back pain without sciatica M54.5 [facility] [place] [address] [facility] [id number] [address] [place] [address] Feb, Seizures R56.9 [facility] [place] [address] [facility] [id number] [address] [place] [address] Jan, [facility] [place] [address] [address] 14 Jan, 2019 Bronchitis J40 and Pleurisy R09.1 [facility] [address] [place] [id number] [place] [address] 12 Jan, 2019 Acute bronchitis, unspecifie d organism J20.9 and Fever R50.9 [facility] [place] [address] [address] Jan, [facility] [place] [address] [address] Jan, Seizures R56.9 [place] [address] [address] Nov, [facility] [place] [address] [address] Nov, [facility] [place] [address] [address] Nov, Nonintractable absence epile psy without status epilepticus G40.A09 and Palpitations R00.2 [place] [address] [address] Nov, [facility] [place] [address] [address] Oct, [facility] [place] [address] [address] Sep, [facility] [place] [address] [address] Aug, Seizures R56.9 and Mood diso rder F39 [place] [address] [address] 18 Jul, 2018 Dysuria R30.0 and Bladder sp asms N32.89 [facility] [place] [address] [address] Jul, [place] [address] [id number] [address] [place] [address] March, Elevated liver enzymes R74.8 and Abnormal CBC R79.89 [facility] [place] [address] [facility] [id number] [address] [place] [address] March, Encounter for immunization Z 23 [facility] [place] [address] [facility] [id number] [address] [place] [address] March, [facility] [place] [address] [facility] [id number] [address] [place] [address] March, [facility] [place] [address] [facility] [id number] [address] [place] [address] March, Elevated liver enzymes R74.8 and Abnormal CBC R79.89 [facility] [place] [address] [facility] [id number] [address] [place] [address] March, Anxiety F41.9 ; Bronchitis J 40 and Seasonal allergic rhinitis due to other allergic trigger J30.89 [facility] [place] [address] [facility] [id number] [address] [place] [address] March, [facility] [place] [address] [facility] [id number] [address] [place] [address] Feb, [facility] [place] [address] [facility] [id number] [address] [place] [address] Feb, Pharyngitis due to other org anism J02.8 [facility] [place] [address] [facility] [id number] [address] [place] [address] Feb, Pharyngitis due to other org anism J02.8 [facility] [address] [facility] [id number] [address] [place] [address] Feb, Sore throat J02.9 ; Fatigue, unspecified type R53.83 and Strep pharyngitis J02.0 [facility] [address] [facility] [id number] [address] [place] [address] Feb, Acute nasopharyngitis J00 [facility] [address] [address] Feb, Lower abdominal pain R10.30 [facility] [place] [address] [address] Feb, Bladder spasms N32.89 and Ur inary frequency R35.0 [facility] [place] [address] [address] Jan, Strep throat J02.0 [facility] [place] [address] [address] Dec, Seasonal allergic rhinitis, unspecified trigger J30.2 [place] [address] [address] Nov, Acute suppurative otitis med ia of both ears without spontaneous rupture of tympanic membranes, recurrence not specified H66.003 [facility] [place] [address] [address] Nov, Acute suppurative otitis med ia of both ears without spontaneous rupture of tympanic membranes, recurrence not specified H66.003 [facility] [place] [address] [address] Nov, Acute suppurative otitis med ia of both ears without spontaneous rupture of tympanic membranes, recurrence not specified H66.003 [place] [address] [address] Oct, [place] [address] [address] Jul, Seizures R56.9 [place] [address] [address] 14 Jul, 2017 Seizures R56.9 ; Other chron ic pain G89.29 ; Pain in left ankle and joints of left foot M25.572 and Allergic rhinitis, unspecified allergic rhinitis trigger, unspecified rhinitis seasonality J30.9 [facility] [address] [address] 07 Jul, 2017 Acute seasonal allergic rhin itis due to other allergen J30.89 [facility] N [address] [address] Jun, Left foot pain M79.672 and L eft lateral ankle pain M25.[address] [address] Aug, Allergic rhinitis, unspecifi ed allergic rhinitis trigger, unspecified rhinitis seasonality J30.9 ; Low back pain M54.5 and Other chronic pain G89.29 [facility] [address] [place] [address] Jul, [facility] [address] [address] Jul, Low back pain M54.5 and Othe r chronic pain G89.29 [facility] [address] [place] [address] Jul, Acute maxillary sinusitis, r ecurrence not specified J01.00 [facility] [address] [place] [address] Jun, Cellulitis of left lower ext remity L03.116 [facility] [address] [address] Apr, Wrist pain, left M25.532 [facility] [address] [address] March, Low back pain M54.5 ; Fever, unspecified R50.9 and Strep pharyngitis J02.0 [facility] [address] [place] [address] March, Hordeolum externum of left u pper eyelid H00.014 and Acute follicular conjunctivitis of left eye H10.012 [facility] [place] [address] [address] Jan, Folliculitis L73.9 [facility] [place] [address] [address] Jan, Screen for sexually transmit yayo diseases Z11.3 [place] [address] [address] Nov, [place] [address] [address] Nov, Gen idiopathic epilepsy, not intractable, 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 [place] [address] [address] Nov, Malaise R53.81 ; Upper respi ratory infection J06.9 and Pharyngitis J02.9 [place] [address] [address] Nov, Acute pharyngitis, unspecifi ed J02.9 ; Acute upper respiratory infection, unspecified J06.9 ; Other viral agents as the cause of diseases classified elsewhere B97.89 and Allergic rhinitis J30.9 [place] [address] [address] 04 Oct, 2015 Testicular pain N50.8 [place] [address] [address] 15 Jul, 2015 Sinusitis 473.9 [place] [address] [address] 12 Apr, 2015 Back pain 724.5 [place] [address] [address] 11 Apr, 2015 [place] [address] [address] 14 Feb, 2015 [place] [address] [address] Feb, [facility] [address] [id number] [address] [place] [address], [place] [address] Jan, [facility] [address] [id number] [address] [place] [address], [place] [address] Nov, [facility] [address] [id number] [address] [place] [address], [place] [address] Nov, [facility] [address] [id number] [address] [place] [address] Nov, [facility] [address] [id number] [address] [place] [address], [place] [address] Nov, [facility] [address] [id number] [address] [place] [address], [place] [address] Oct, [facility] [address] [id number] [address] [place] [address], [place] [address] Oct, [facility] [address] [id number] [address] [place] [address], [place] [address] Aug, [facility] [address] [id number] [address] [place] [address], [place] [address] Aug, [facility] [address] [id number] [address] [place] [address], [place] [address] Aug, [facility] [address] [id number] [address] [place] [address], [place] [address] Aug, [facility] [address] [id number] [address] [place] [address] Aug, [facility] [address] [id number] [address] [place] [address], [place] [address] Aug, [facility] [address] [id number] [address] [place] [address], [place] [address] Aug, [facility] [address] [id number] [address] [place] [address], [place] [address] Aug, [facility] [address] [id number] [facility] [place] [address] Jun, [facility] [address] [id number] [address] [place] [address], [place] [address] Jun, [facility] [address] [id number] [facility] [place] [address] Jun, [facility] [address] [id number] [address] [place] [address], [place] [address] Jun, [facility] [address] [id number] [address] [place] [address], [place] [address] Jun, [facility] [address] [id number] [address] [place] [address], [place] [address] Jun, [facility] [address] [id number] [address] [place] [address], [place] [address] Jun, [facility] [address] [id number] [address] [place] [address], [place] [address] Jun, [facility] [address] [id number] [address] [place] [address], [place] [address] Jun, [facility] [address] [id number] [address] [place] [address], [place] [address] Jun, [facility] [address] [id number] [address] [place] [address], [place] [address] May, [facility] [address] [id number] [address] [place] [address], [place] [address] May, [facility] [address] [id number] [address] [place] [address], [place] [address] March, [facility] [address] [id number] [address] [place] [address], [place] [address] March, [facility] [address] [id number] [address] [place] [address], [place] [address] March, [facility] [address] [id number] [address] [place] [address], [place] [address] March, [facility] [address] [id number] [address] [place] [address], [place] [address] Feb, [facility] [address] [id number] [address] [place] [address], [place] [address] Feb, [facility] [address] [id number] [address] [place] [address], [place] [address] Jan, [facility] [address] [id number] [address] [place] [address], [place] [address] Jan, [facility] [address] [id number] [address] [place] [address], [place] [address] Jan, [facility] [address] [id number] [address] [place] [address], [place] [address] Jan, [facility] [address] [id number] [address] [place] [address], [place] [address] 18 Dec, 2013 [facility] [address] [id number] [address] [place] [address], [place] [address] 18 Dec, 2013 [facility] [address] [id number] [address] [place] [address], [place] [address] 14 Dec, 2013 [facility] [address] [id number] [address] [place] [address], [place] [address] Dec, [facility] [address] [id number] [address] [place] [address], [place] [address] Dec, [facility] [address] [id number] [address] [place] [address], [place] [address] Dec, [facility] [address] [id number] [address] [place] [address], [place] [address] Nov, [facility] [address] [id number] [address] [place] [address], [place] [address] Nov, [facility] [address] [id number] [address] [place] [address], [place] [address] Nov, [facility] [address] [id number] [address] [place] [address], [place] [address] Nov, [facility] [address] [id number] [address] [place] [address], [place] [address] Nov, [facility] [address] [id number] [address] [place] [address], [place] [address] Nov, [facility] [address] [id number] [address] [place] [address], [place] [address] Nov, [facility] [address] [id number] [address] [place] [address], [place] [address] Nov, [facility] [address] [id number] [address] [place] [address], [place] [address] Nov, [facility] [address] [id number] [address] [place] [address], [place] [address] Nov, [facility] [address] [id number] [address] [place] [address], [place] [address] Nov, [facility] [address] [id number] [address] [place] [address], [place] [address] Nov, [facility] [address] [id number] [address] [place] [address], [place] [address] Oct, [facility] [address] [id number] [address] [place] [address], [place] [address] Oct, [facility] [address] [id number] [address] [place] [address], [place] [address] Oct, [facility] [address] [id number] [address] [place] [address], [place] [address] Oct, [facility] [address] [id number] [address] [place] [address], [place] [address] Sep, [facility] [address] [id number] [address] [place] [address], [place] [address] Sep, [facility] [address] [id number] [address] [place] [address], [place] [address] Sep, [facility] [address] [id number] [address] [place] [address], [place] [address] Sep, [facility] [address] [id number] [address] [place] [address], [place] [address] Sep, [facility] [address] [id number] [address] [place] [address], [place] [address] Sep, [facility] [address] [id number] [address] [place] [address], [place] [address] Sep, [facility] [address] [id number] [address] [place] [address], [place] [address] Sep, [facility] [address] [id number] [address] [place] [address], [place] [address] 30 Jul, 2013 [facility] [address] [id number] [address] [place] [address], [place] [address] 26 Jul, 2013 [facility] [address] [id number] [address] [place] [address], [place] [address] May, [facility] [address] [id number] [address] [place] [address], [place] [address] Apr, [facility] [address] [id number] [address] [place] [address], [place] [address] 24 Apr, 2013 [facility] [address] [id number] [address] [place] [address], [place] [address] Apr, [facility] [address] [id number] [address] [place] [address] Apr, [facility] [address] [id number] [address] [place] [address], [place] [address] Apr, [facility] [address] [id number] [address] [place] [address] 10 Apr, 2013 [facility] [address] [id number] [address] [place] [address] 03 Apr, 2013 [facility] [address] [id number] [address] [place] [address] March, [facility] [address] [id number] [address] [place] [address], [place] [address] March, [facility] [address] [id number] [address] [place] [address], [place] [address] Jan, [facility] [address] [id number] [address] [place] [address], [place] [address] Dec, [facility] [address] [id number] [address] [place] [address], [place] [address] Nov, [facility] [address] [id number] [address] [place] [address], [place] [address] Nov, [facility] [address] [id number] [address] [place] [address], [place] [address] Oct, [facility] [address] [id number] [address] [place] [address], [place] [address] Oct, [facility] [address] [id number] [address] [place] [address], [place] [address] Oct, [facility] [address] [id number] [address] [place] [address], [place] [address] Oct, [facility] [address] [id number] [address] [place] [address], [place] [address] Oct, [facility] [address] [id number] [address] [place] [address], [place] [address] Oct, [facility] [address] [id number] [address] [place] [address], [place] [address] Sep, [facility] [address] [id number] [address] [place] [address], [place] [address] Sep, [facility] [address] [id number] [address] [place] [address], [place] [address] Sep, [facility] [address] [id number] [address] [place] [address], [place] [address] Sep, [facility] [address] [id number] [address] [place] [address], [place] [address] Sep, [facility] [address] [id number] [address] [place] [address], [place] [address] Sep, [facility] [address] [id number] [address] [place] [address], [place] [address] Sep, [facility] [address] [id number] [address] [place] [address], [place] [address] Sep, [facility] [address] [id number] [address] [place] [address], [place] [address] Sep, [facility] [address] [id number] [address] [place] [address], [place] [address] Sep, [facility] [address] [id number] [address] [place] [address], [place] [address] Sep, [facility] [address] [id number] [address] [place] [address], [place] [address] Sep, [facility] [address] [id number] [address] [place] [address], [place] [address] Aug, [facility] [address] [id number] [address] [place] [address], [place] [address] Aug, [facility] [address] [id number] [address] [place] [address], [place] [address] Aug, [facility] [address] [id number] [address] [place] [address], [place] [address] Aug, [facility] [address] [id number] [address] [place] [address], [place] [address] Aug, [facility] [address] [id number] [address] [place] [address], [place] [address] Aug, [facility] [address] [id number] [address] [place] [address], [place] [address] Aug, [facility] [address] [id number] [address] [place] [address], [place] [address] Aug, [facility] [address] [id number] [address] [place] [address], [place] [address] Aug, [facility] [address] [id number] [address] [place] [address], [place] [address] Aug, [facility] [address] [id number] [address] [place] [address], [place] [address] Jul, [facility] [address] [id number] [address] [place] [address], [place] [address] Jul, [facility] [address] [id number] [address] [place] [address], [place] [address] Jun, [facility] [address] [id number] [address] [place] [address], [place] [address] Jun, [facility] [address] [id number] [address] [place] [address], [place] [address] Jun, [facility] [address] [id number] [address] [place] [address], [place] [address] May, [facility] [address] [id number] [address] [place] [address], [place] [address] May, [facility] [address] [id number] [address] [place] [address], [place] [address] May, [facility] [address] [id number] [address] [place] [address], [place] [address] May, [facility] [address] [id number] [address] [place] [address], [place] [address] Apr, [facility] [address] [id number] [address] [place] [address], [place] [address] Apr, [facility] [address] [id number] [address] [place] [address], [place] [address] Apr, [facility] [address] [id number] [address] [place] [address], [place] [address] Apr, [facility] [address] [id number] [address] [place] [address], [place] [address] March, [facility] [address] [id number] [address] [place] [address], [place] [address] Jan, [facility] [address] [id number] [address] [place] [address], [place] [address] Dec, [facility] [address] [id number] [address] [place] [address], [place] [id number] Dec, [facility] [address] [id number] [address] [place] [address], [place] [address] Oct, [facility] [address] [id number] [address] [place] [address], [place] [address] 27 Oct, 2011 [facility] [address] [id number] [address] [place] [address], [place] [address] 23 Oct, 2011 [facility] [address] [id number] [address] [place] [address], [place] [address] Oct, [facility] [address] [id number] [address] [place] [address], [place] [address] 15 Oct, 2011 [facility] [address] [id number] [address] [place] [address], [place] [address] 15 Oct, 2011 [facility] [address] [id number] [address] [place] [address], [place] [address] 13 Oct, 2011 [facility] [address] [id number] [address] [place] [address], [place] [address] 05 Oct, 2011 [facility] [address] [id number] [address] [place] [address], [place] [address] 28 Sep, 2011 [facility] [address] [id number] [address] [place] [address], [place] [address] 28 Sep, 2011 [facility] [address] [id number] [address] [place] [address], [place] [address] 15 Sep, 2011 [facility] [address] [id number] [address] [place] [address], [place] [address] Sep, [facility] [place] [address] [facility] [id number] [address] [place] [id number] Aug, [facility] [place] [address] [facility] [id number] [address] [place] [id number] 15 Jul, 2011 IMMUNIZATIONS Vaccine Route Administration [...] History tonsillectomy Hospitalization History Seizure activity - [facility]. 07/2018
--- OUTSIDE RECORDS SUMMARY | 2020-02-03 17:04 | XMS REPORT ---
Author Author Derek MERINO Organization [facility] Address [address] [place] [address] Care Team Providers Care Mat Machine Tender Name Role Phone ANTON MERINO Unavailable PROBLEMS Type Condition ICD9-CM Code JFI40-CE Code Onset Dates Condition S tatus SNOMED Code Problem Bladder spasms N32.89 Active 63372 7006 Problem Migraine with aura and without status migrainosu s, not intractable G43.109 Active 8704675 Problem Migraine with aura and without status migrainosu s, not intractable G43.109 Active 6465631 Problem Seasonal allergic rhinitis due to other allergic trigger J30.89 Active 448093843 Problem Anxiety F41.9 Active 41165610 Problem Mood disorder F39 Active 266248 05 Problem 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 [id number] [address] [place] [address] May, Nonintractable absence epile psy without status epilepticus G40.A09 and Migraine with aura and without status migrainosus, not intractable G43.109 [facility] [address] [facility] [id number] [address] [place] [address] Apr, [facility] [address] [facility] [id number] [address] [place] [address] March, [facility] [address] [facility] [id number] [address] [place] [address] Feb, Acute midline low back pain without sciatica M54.5 [facility] [address] [facility] [id number] [address] [place] [address] Feb, Seizures R56.9 [facility] [address] [place] [id number] [address] [place] [address] Jan, [facility] [address] [address] 14 Jan, 2019 Bronchitis J40 and Pleurisy R09.1 [facility] [address] [place] [id number] [address] [place] [address] 12 Jan, 2019 Acute bronchitis, unspecifie d organism J20.9 and Fever R50.9 [facility] [address] [address] Jan, [facility] [address] [address] Jan, Seizures R56.9 [facility] [address] [address] Nov, [facility] [address] [address] Nov, [facility] [address] [address] Nov, Nonintractable absence epile psy without status epilepticus G40.A09 and Palpitations R00.2 [facility] [address] [place] [id number] [address] [place] [address] Nov, [facility] [address] [address] Oct, [facility] [address] [address] Sep, [facility] [address] [address] Aug, Seizures R56.9 and Mood diso rder F39 [facility] [address] [place] [id number] [address] [place] [address] 18 Jul, 2018 Dysuria R30.0 and Bladder sp asms N32.89 [facility] [address] [place] [address] Jul, [facility] [address] [facility] [id number] [address] [place] [address] March, Elevated liver enzymes R74.8 and Abnormal CBC R79.89 [facility] [address] [facility] [id number] [address] [place] [address] March, Encounter for immunization Z 23 [facility] [address] [facility] [id number] [address] [place] [address] March, [facility] [address] [facility] [id number] [address] [place] [address] March, [facility] [address] [facility] [id number] [address] [place] [address] March, Elevated liver enzymes R74.8 and Abnormal CBC R79.89 [facility] [address] [facility] [id number] [address] [place] [address] March, Anxiety F41.9 ; Bronchitis J 40 and Seasonal allergic rhinitis due to other allergic trigger J30.89 [facility] [address] [facility] [id number] [address] [place] [address] March, [facility] [address] [facility] [id number] [address] [place] [address] Feb, [facility] [address] [facility] [id number] [address] [place] [address] Feb, Pharyngitis due to other org anism J02.8 [facility] [address] [facility] [id number] [address] [place] [address] Feb, Pharyngitis due to other org anism J02.8 [facility] [address] [facility] [id number] [address] [place] [address] Feb, Sore throat J02.9 ; Fatigue, unspecified type R53.83 and Strep pharyngitis J02.0 [facility] [address] [place] [id number] [address] [place] [address] 07 Feb, 2018 Acute nasopharyngitis J00 [facility] [address] [address] 04 Feb, 2018 Lower abdominal pain R10.30 [facility] [place] [address] [address] 02 Feb, 2018 Bladder spasms N32.89 and Ur inary frequency R35.0 [facility] [address] [address] Jan, Strep throat J02.0 [facility] [place] [address] [address] Dec, Seasonal allergic rhinitis, unspecified trigger J30.2 [place] [address] [address] Nov, Acute suppurative otitis med ia of both ears without spontaneous rupture of tympanic membranes, recurrence not specified H66.003 [facility] [place] [address] [address] Nov, Acute suppurative otitis med ia of both ears without spontaneous rupture of tympanic membranes, recurrence not specified H66.003 [facility] [place] [address] [address] Nov, Acute suppurative otitis med ia of both ears without spontaneous rupture of tympanic membranes, recurrence not specified H66.003 [place] [address] [place] [id number] [address] [place] [address] Oct, [place] [address] [address] 21 Jul, 2017 Seizures R56.9 [place] [address] [place] [id number] [place] [address] 14 Jul, 2017 Seizures R56.9 ; Other chron ic pain G89.29 ; Pain in left ankle and joints of left foot M25.572 and Allergic rhinitis, unspecified allergic rhinitis trigger, unspecified rhinitis seasonality J30.9 [facility] [place] [address] [place] [address] 07 Jul, 2017 Acute seasonal allergic rhin itis due to other allergen J30.89 [facility] [place] [facility] [address] [place] [address] Jun, Left foot pain M79.672 and L eft lateral ankle pain M25.572 [facility] [address] [address] Aug, Allergic rhinitis, unspecifi ed allergic rhinitis trigger, unspecified rhinitis seasonality J30.9 ; Low back pain M54.5 and Other chronic pain G89.29 [facility] [place] [facility] [address] [place] [address] Jul, [facility] [address] [place] [address] Jul, Low back pain M54.5 and Othe r chronic pain G89.29 [facility] [place] [facility] [address] [place] [address] Jul, Acute maxillary sinusitis, r ecurrence not specified J01.00 [facility] [place] [facility] [address] [place] [address] Jun, Cellulitis of left lower ext remity L03.116 [facility] [address] [place] [address] Apr, Wrist pain, left M25.532 [facility] [address] [place] [address] March, Low back pain M54.5 ; Fever, unspecified R50.9 and Strep pharyngitis J02.0 [facility] [address] [place] [address] 06 May, 2016 Hordeolum externum of left u pper eyelid H00.014 and Acute follicular conjunctivitis of left eye H10.012 [place] [address] [address] Jan, Folliculitis L73.9 [facility] [place] [address] [address] Jan, Screen for sexually transmit yayo diseases Z11.3 [place] [address] [address] Nov, [place] [address] [address] Nov, Gen idiopathic epilepsy, not intractable, 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 [facility] [place] [address] [address] Nov, Malaise R53.81 ; Upper respi ratory infection J06.9 and Pharyngitis J02.9 [facility] [place] [address] [address] Nov, Acute pharyngitis, unspecifi ed J02.9 ; Acute upper respiratory infection, unspecified J06.9 ; Other viral agents as the cause of diseases classified elsewhere B97.89 and Allergic rhinitis J30.9 [facility] [place] [address] [address] 04 Oct, 2015 Testicular pain N50.8 [place] [address] [address] 15 Jul, 2015 Sinusitis 473.9 [place] [address] [address] 12 Apr, 2015 Back pain 724.5 [place] [address] [address] 11 Apr, 2015 [place] [address] [address] Feb, [facility] [address] [id number] [address] [place] [address], [place] [address] Feb, [facility] [address] [id number] [address] [place] [address], [place] [address] Jan, [facility] [address] [id number] [address] [place] [address], [place] [address] Nov, [facility] [address] [id number] [address] [place] [address], [place] [address] Nov, [facility] [address] [id number] [address] [place] [address], [place] [address] Nov, [facility] [address] [id number] [address] [place] [address], [place] [address] Nov, [facility] [address] [id number] [address] [place] [address], [place] [address] Oct, [facility] [address] [id number] [address] [place] [address], [place] [address] Oct, [facility] [address] [id number] [address] [place] [address], [place] [address] Aug, [facility] [address] [id number] [address] [place] [address] Aug, [facility] [address] [id number] [address] [place] [address], [place] [address] Aug, [facility] [address] [id number] [address] [place] [address] Aug, [facility] [address] [id number] [address] [place] [address], [place] [address] Aug, [facility] [address] [id number] [address] [place] [address], [place] [address] Aug, [facility] [address] [id number] [address] [place] [address], [place] [address] Aug, [facility] [address] [id number] [address] [place] [address], [place] [address] Aug, [facility] [address] [id number] [address] [place] [address], [place] [address] Jun, [facility] [address] [id number] [address] [place] [address], [place] [address] Jun, [facility] [address] [id number] [address] [place] [address], [place] [address] Jun, [facility] [address] [id number] [address] [place] [address], [place] [address] Jun, [facility] [address] [id number] [address] [place] [address], [place] [address] Jun, [facility] [address] [id number] [address] [place] [address], [place] [address] Jun, [facility] [address] [id number] [address] [place] [address], [place] [address] Jun, [facility] [address] [id number] [address] [place] [address], [place] [address] Jun, [facility] [address] [id number] [address] [place] [address], [place] [address] Jun, [facility] [address] [id number] [address] [place] [address], [place] [address] Jun, [facility] [address] [id number] [address] [place] [address], [place] [address] May, [facility] [address] [id number] [address] [place] [address], [place] [address] May, [facility] [address] [id number] [address] [place] [address], [place] [address] March, [facility] [address] [id number] [address] [place] [address], [place] [address] March, [facility] [address] [id number] [address] [place] [address], [place] [address] March, [facility] [address] [id number] [address] [place] [address], [place] [address] March, [facility] [address] [id number] [address] [place] [address], [place] [address] Feb, [facility] [address] [id number] [address] [place] [address], [place] [address] Feb, [facility] [address] [id number] [address] [place] [address], [place] [address] Jan, [facility] [address] [id number] [address] [place] [address], [place] [address] Jan, [facility] [address] [id number] [address] [place] [address], [place] [address] Jan, [facility] [address] [id number] [address] [place] [address], [place] [address] Jan, [facility] [address] [id number] [address] [place] [address], [place] [address] Dec, [facility] [address] [id number] [address] [place] [address], [place] [address] Dec, [facility] [address] [id number] [address] [place] [address], [place] [address] Dec, [facility] [address] [id number] [address] [place] [address], [place] [address] Dec, [facility] [address] [id number] [address] [place] [address], [place] [address] Dec, [facility] [address] [id number] [address] [place] [address], [place] [address] Dec, [facility] [address] [id number] [address] [place] [address], [place] [address] Nov, [facility] [address] [id number] [address] [place] [address], [place] [address] Nov, [facility] [address] [id number] [address] [place] [address] Nov, [facility] [address] [id number] [address] [place] [address], [place] [address] Nov, [facility] [address] [id number] [address] [place] [address], [place] [address] Nov, [facility] [address] [id number] [address] [place] [address], [place] [address] Nov, [facility] [address] [id number] [address] [place] [address], [place] [address] Nov, [facility] [address] [id number] [address] [place] [address], [place] [address] Nov, [facility] [address] [id number] [address] [place] [address], [place] [address] Nov, [facility] [address] [id number] [address] [place] [address], [place] [address] Nov, [facility] [address] [id number] [address] [place] [address], [place] [address] Nov, [facility] [address] [id number] [address] [place] [address], [place] [address] Nov, [facility] [address] [id number] [address] [place] [address], [place] [address] Oct, [facility] [address] [id number] [address] [place] [address], [place] [address] Oct, [facility] [address] [id number] [address] [place] [address], [place] [address] Oct, [facility] [address] [id number] [address] [place] [address], [place] [address] Oct, [facility] [address] [id number] [address] [place] [address], [place] [address] Sep, [facility] [address] [id number] [address] [place] [address], [place] [address] Sep, [facility] [address] [id number] [address] [place] [address], [place] [address] Sep, [facility] [address] [id number] [address] [place] [address], [place] [address] Sep, [facility] [address] [id number] [address] [place] [address], [place] [address] Sep, [facility] [address] [id number] [address] [place] [address], [place] [address] Sep, [facility] [address] [id number] [address] [place] [address], [place] [address] Sep, [facility] [address] [id number] [address] [place] [address], [place] [address] Sep, [facility] [address] [id number] [address] [place] [address], [place] [address] 30 Jul, 2013 [facility] [address] [id number] [address] [place] [address], [place] [address] Jul, [facility] [address] [id number] [address] [place] [address], [place] [address] May, [facility] [address] [id number] [address] [place] [address], [place] [address] Apr, [facility] [address] [id number] [address] [place] [address], [place] [address] 24 Apr, 2013 [facility] [address] [id number] [address] [place] [address], [place] [address] Apr, [facility] [address] [id number] [address] [place] [address], [place] [address] Apr, [facility] [address] [id number] [address] [place] [address], [place] [address] Apr, [facility] [address] [id number] [address] [place] [address], [place] [address] 10 Apr, 2013 [facility] [address] [id number] [address] [place] [address] [address] Apr, [facility] [address] [id number] [address] [place] [address], [place] [address] March, [facility] [address] [id number] [address] [place] [address], [place] [address] March, [facility] [address] [id number] [address] [place] [address], [place] [address] Jan, [facility] [address] [id number] [address] [place] [address], [place] [address] Dec, [facility] [address] [id number] [address] [place] [address], [place] [address] Nov, [facility] [address] [id number] [address] [place] [address], [place] [address] Nov, [facility] [address] [id number] [address] [place] [address], [place] [address] Oct, [facility] [address] [id number] [address] [place] [address], [place] [address] Oct, [facility] [address] [id number] [address] [place] [address], [place] [address] Oct, [facility] [address] [id number] [address] [place] [address], [place] [address] Oct, [facility] [place] [address] [id number] [address] [place] [address], [place] [address] Oct, [facility] [address] [id number] [address] [place] [address], [place] [address] Oct, [facility] [address] [id number] [address] [place] [address], [place] [address] Sep, [facility] [address] [id number] [address] [place] [address], [place] [address] Sep, [facility] [address] [id number] [address] [place] [address], [place] [address] Sep, [facility] [address] [id number] [address] [place] [address], [place] [address] Sep, [facility] [address] [id number] [address] [place] [address], [place] [address] Sep, [facility] [address] [id number] [address] [place] [address], [place] [address] Sep, [facility] [address] [id number] [address] [place] [address], [place] [address] Sep, [facility] [address] [id number] [address] [place] [address], [place] [address] Sep, [facility] [address] [id number] [address] [place] [address], [place] [address] Sep, [facility] [address] [id number] [address] [place] [address], [place] [address] Sep, [facility] [address] [id number] [address] [place] [address], [place] [address] Sep, [facility] [address] [id number] [address] [place] [address], [place] [address] Sep, [facility] [address] [id number] [address] [place] [address], [place] [address] Aug, [facility] [address] [id number] [address] [place] [address], [place] [address] Aug, [facility] [address] [id number] [address] [place] [address], [place] [address] Aug, [facility] [address] [id number] [address] [place] [address], [place] [address] Aug, [facility] [address] [id number] [address] [place] [address], [place] [address] Aug, [facility] [address] [id number] [address] [place] [address], [place] [address] Aug, [facility] [address] [id number] [address] [place] [address], [place] [address] Aug, [facility] [address] [id number] [address] [place] [address], [place] [address] Aug, [facility] [facility] [address] [id number] [address] [place] [address], [place] [address] Aug, [facility] [address] [id number] [address] [place] [address], [place] [address] Aug, [facility] [address] [id number] [address] [place] [address], [place] [address] Jul, [facility] [address] [id number] [address] [place] [address], [place] [address] Jul, [facility] [address] [id number] [address] [place] [address], [place] [address] Jun, [facility] [address] [id number] [address] [place] [address], [place] [address] Jun, [facility] [address] [id number] [address] [place] [address], [place] [address] Jun, [facility] [address] [id number] [address] [place] [address], [place] [address] May, [facility] [address] [id number] [address] [place] [address], [place] [address] May, [facility] [address] [id number] [address] [place] [address], [place] [address] May, [facility] [address] [id number] [address] [place] [address], [place] [address] May, [facility] [address] [id number] [address] [place] [address], [place] [address] Apr, [facility] [address] [id number] [address] [place] [address], [place] [address] Apr, [facility] [address] [id number] [address] [place] [address], [place] [address] Apr, [facility] [address] [id number] [address] [place] [address], [place] [address] Apr, [facility] [address] [id number] [address] [place] [address], [place] [address] March, [facility] [address] [id number] [address] [place] [address], [place] [address] Jan, [facility] [address] [id number] [address] [place] [address], [place] [address] Dec, [facility] [address] [id number] [address] [place] [address], [place] [address] Dec, [facility] [address] [id number] [address] [place] [address], [place] [address] Oct, [facility] [address] [id number] [address] [place] [address], [place] [address] Oct, [facility] [address] [id number] [address] [place] [address], [place] [address] Oct, [facility] [address] [id number] [address] [place] [address], [place] [address] Oct, [facility] [address] [id number] [address] [place] [address], [place] [address] 15 Oct, 2011 [facility] [address] [id number] [address] [place] [address], [place] [address] 15 Oct, 2011 [facility] [address] [id number] [address] [place] [address], [place] [address] Oct, [facility] [address] [id number] [address] [place] [address], [place] [address] 05 Oct, 2011 [facility] [address] [id number] [address] [place] [address], [place] [address] Sep, [facility] [address] [id number] [address] [place] [address], [place] [address] 28 Sep, 2011 [facility] [address] [id number] [address] [place] [address], [place] [address] 15 Sep, 2011 [facility] [place] [address] [facility] [id number] [address] [place] [address] 15 Sep, 2011 [facility] [address] [facility] [id number] [address] [place] [id number] 11 Aug, 2011 [facility] [address] [facility] [id number] [address] [place] [id number] 15 Jul, 2011 IMMUNIZATIONS Vaccine Route Administration [...] History tonsillectomy Hospitalization History Seizure activity - [facility]. 07/2018
--- OUTSIDE RECORDS SUMMARY | 2020-02-03 17:05 | XMS REPORT ---
Author Author Derek KEITH Organization [facility] Address [address] [place] [address] Care Team Providers Care Night Guard Name Role Phone ARMANI KEITH Unavailable PROBLEMS Type Condition ICD9-CM Code XBR38-CH Code Onset Dates Condition S tatus SNOMED Code Problem Bladder spasms N32.89 Active 13278 7006 Problem Migraine with aura and without status migrainosu s, not intractable G43.109 Active 1953035 Problem Migraine with aura and without status migrainosu s, not intractable G43.109 Active 1116597 Problem Seasonal allergic rhinitis due to other allergic trigger J30.89 Active 457201476 Problem Anxiety F41.9 Active 65514725 Problem Mood disorder F39 Active 047453 05 Problem 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 02569942 ALLERGIES No Information ENCOUNTERS Encounter Location Date Diagnosis [facility] [address] [address] May, Nonintractable absence epile psy without status epilepticus G40.A09 and Migraine with aura and without status migrainosus, not intractable G43.109 [facility] [address] [facility] [id number] [address] [place] [id number] Apr, [facility] [address] [facility] [id number] [address] [place] [id number] March, [facility] [address] [facility] [id number] [address] [place] [address] Feb, Acute midline low back pain without sciatica M54.5 [facility] [address] [facility] [id number] [address] [place] [address] Feb, Seizures R56.9 [facility] [address] [place] [id number] [address] [place] [id number] Jan, [facility] [address] [place] [id number] [place] [id number] 14 Jan, 2019 Bronchitis J40 and Pleurisy R09.1 [facility] [address] [facility] [id number] [address] [place] [id number] 12 Jan, 2019 Acute bronchitis, unspecifie d organism J20.9 and Fever R50.9 [facility] [address] [address] Jan, [facility] [address] [address] Jan, Seizures R56.9 [facility] [address] [place] [id number] [place] [address] Nov, [facility] [address] [address] Nov, [facility] [address] [address] Nov, Nonintractable absence epile psy without status epilepticus G40.A09 and Palpitations R00.2 [place] [address] [address] Nov, [facility] [address] [address] Oct, [facility] [address] [address] Sep, [facility] [address] [address] Aug, Seizures R56.9 and Mood diso rder F39 [facility] [address] [place] [id number] [address] [place] [id number] 18 Jul, 2018 Dysuria R30.0 and Bladder sp asms N32.89 [place] [address] [place] [address] Jul, [facility] [address] [id number] [address] [place] [address] March, Elevated liver enzymes R74.8 and Abnormal CBC R79.89 [facility] [address] [facility] [id number] [address] [place] [address] March, Encounter for immunization Z 23 [facility] [address] [facility] [id number] [address] [place] [id number] March, [facility] [address] [facility] [id number] [address] [place] [address] March, [facility] [address] [facility] [id number] [address] [place] [id number] March, Elevated liver enzymes R74.8 and Abnormal CBC R79.89 [facility] [address] [facility] [id number] [address] [place] [address] March, Anxiety F41.9 ; Bronchitis J 40 and Seasonal allergic rhinitis due to other allergic trigger J30.89 [facility] [address] [facility] [id number] [address] [place] [id number] March, [facility] [address] [facility] [id number] [address] [place] [id number] Feb, [facility] [address] [facility] [id number] [address] [place] [id number] Feb, Pharyngitis due to other org anism J02.8 [facility] [address] [facility] [id number] [address] [place] [id number] Feb, Pharyngitis due to other org anism J02.8 [facility] [address] [facility] [id number] [address] [place] [id number] Feb, Sore throat J02.9 ; Fatigue, unspecified type R53.83 and Strep pharyngitis J02.0 [facility] [address] [facility] [id number] [address] [place] [address] Feb, Acute nasopharyngitis J00 [facility] [address] [address] Feb, Lower abdominal pain R10.30 [facility] [place] [address] [address] Feb, Bladder spasms N32.89 and Ur inary frequency R35.0 [facility] [address] [address] Jan, Strep throat J02.0 [facility] [place] [address] [address] Dec, Seasonal allergic rhinitis, unspecified trigger J30.2 [place] [address] [address] Nov, Acute suppurative otitis med ia of both ears without spontaneous rupture of tympanic membranes, recurrence not specified H66.003 [facility] [place] [address] [address] Nov, Acute suppurative otitis med ia of both ears without spontaneous rupture of tympanic membranes, recurrence not specified H66.003 [facility] [place] [address] [address] Nov, Acute suppurative otitis med ia of both ears without spontaneous rupture of tympanic membranes, recurrence not specified H66.003 [place] [address] [place] [id number] [address] [place] [address] Oct, [place] [address] [address] Jul, Seizures R56.9 [place] [address] [address] 14 Jul, 2017 Seizures R56.9 ; Other chron ic pain G89.29 ; Pain in left ankle and joints of left foot M25.572 and Allergic rhinitis, unspecified allergic rhinitis trigger, unspecified rhinitis seasonality J30.9 [facility] [address] [address] 07 Jul, 2017 Acute seasonal allergic rhin itis due to other allergen J30.89 [facility] [address] [place] [id number] [place] [address] Jun, Left foot pain M79.672 and L eft lateral ankle pain M25.572 [facility] [address] [address] Aug, Allergic rhinitis, unspecifi ed allergic rhinitis trigger, unspecified rhinitis seasonality J30.9 ; Low back pain M54.5 and Other chronic pain G89.29 [facility] [address] [place] [address] Jul, [facility] [address] [place] [address] Jul, Low back pain M54.5 and Othe r chronic pain G89.[address] [facility] [address] [place] [address] Jul, Acute maxillary sinusitis, r ecurrence not specified J01.[address] [facility] [address] [place] [address] Jun, Cellulitis of left lower ext remity L03.[address] [facility] [address] [place] [address] Apr, Wrist pain, left M25.[address] [facility] [address] [place] [address] March, Low back pain M54.5 ; Fever, unspecified R50.9 and Strep pharyngitis J02.[address] [facility] [address] [place] [address] March, Hordeolum externum of left u pper eyelid H00.014 and Acute follicular conjunctivitis of left eye H10.012 [place] [address] [address] Jan, Folliculitis L73.9 [facility] [place] [address] [address] Jan, Screen for sexually transmit yayo diseases Z11.3 [place] [address] [address] Nov, [place] [address] [address] Nov, Gen idiopathic epilepsy, not intractable, 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 [place] [address] [address] Nov, Malaise R53.81 ; Upper respi ratory infection J06.9 and Pharyngitis J02.9 [place] [address] [address] Nov, Acute pharyngitis, unspecifi ed J02.9 ; Acute upper respiratory infection, unspecified J06.9 ; Other viral agents as the cause of diseases classified elsewhere B97.89 and Allergic rhinitis J30.9 [place] [address] [address] Oct, Testicular pain N50.8 [place] [address] [address] 15 Jul, 2015 Sinusitis 473.9 [place] [address] [address] 12 Apr, 2015 Back pain 724.5 [place] [address] [address] 11 Apr, 2015 [place] [address] [address] 14 Feb, 2015 [facility] [address] [id number] [address] [place] [address], [place] [address] Feb, [facility] [address] [id number] [address] [place] [address], [place] [address] Jan, [facility] [address] [id number] [address] [place] [address], [place] [address] Nov, [facility] [address] [id number] [address] [place] [address], [place] [address] Nov, [facility] [address] [id number] [address] [place] [address], [place] [address] Nov, [facility] [address] [id number] [address] [place] [address], [place] [address] Nov, [facility] [address] [id number] [address] [place] [address], [place] [address] Oct, [facility] [address] [id number] [address] [place] [address], [place] [address] Oct, [facility] [address] [id number] [address] [place] [address], [place] [address] Aug, [facility] [address] [id number] [address] [place] [phone] Aug, [facility] [address] [id number] [address] [place] [phone] Aug, [facility] [address] [id number] [address] [place] [phone] Aug, [facility] [address] [id number] [address] [place] [address], [place] [address] Aug, [facility] [address] [id number] [address] [place] [address], [place] [address] Aug, [facility] [address] [id number] [address] [place] [phone] Aug, [facility] [address] [id number] [address] [place] [id number] Aug, [facility] [address] [id number] [address] [place] [address], [place] [address] Jun, [facility] [address] [id number] [address] [place] [address], [place] [address] Jun, [facility] [address] [id number] [address] [place] [address], [place] [address] Jun, [facility] [address] [id number] [address] [place] [address], [place] [address] Jun, [facility] [address] [id number] [address] [place] [address], [place] [address] Jun, [facility] [address] [id number] [address] [place] [address], [place] [address] Jun, [facility] [address] [id number] [address] [place] [address], [place] [address] Jun, [facility] [address] [id number] [address] [place] [address], [place] [address] Jun, [facility] [address] [id number] [address] [place] [address], [place] [address] Jun, [facility] [address] [id number] [address] [place] [address], [place] [address] Jun, [facility] [address] [id number] [address] [place] [address], [place] [address] May, [facility] [address] [id number] [address] [place] [address], [place] [address] May, [facility] [address] [id number] [address] [place] [address], [place] [address] March, [facility] [place] [facility] [address] [id number] [address] [place] [address], [place] [address] March, [facility] [address] [id number] [address] [place] [address], [place] [address] March, [facility] [place] [facility] [address] [id number] [address] [place] [address], [place] [address] March, [facility] [address] [id number] [address] [place] [address], [place] [address] Feb, [facility] [place] [facility] [address] [id number] [address] [place] [address], [place] [address] Feb, [facility] [address] [id number] [address] [place] [address], [place] [address] Jan, [facility] [address] [id number] [address] [place] [address], [place] [address] Jan, [facility] [address] [id number] [address] [place] [address], [place] [address] Jan, [facility] [address] [id number] [address] [place] [address], [place] [address] Jan, [facility] [address] [id number] [address] [place] [address], [place] [address] Dec, [facility] [address] [id number] [address] [place] [address], [place] [address] Dec, [facility] [address] [id number] [address] [place] [address], [place] [address] Dec, [facility] [address] [id number] [address] [place] [address], [place] [address] Dec, [facility] [address] [id number] [address] [place] [address], [place] [address] Dec, [facility] [address] [id number] [address] [place] [address], [place] [address] Dec, [facility] [place] [facility] [address] [id number] [address] [place] [address], [place] [address] Nov, [facility] [place] [facility] [address] [id number] [address] [place] [address], [place] [address] Nov, [facility] [place] [facility] [address] [id number] [address] [place] [address], [place] [address] Nov, [facility] [address] [id number] [address] [place] [address], [place] [address] Nov, [facility] [address] [id number] [address] [place] [address], [place] [address] Nov, [facility] [address] [id number] [address] [place] [address], [place] [address] Nov, [facility] [address] [id number] [address] [place] [address], [place] [address] Nov, [facility] [address] [id number] [address] [place] [address], [place] [address] Nov, [facility] [address] [id number] [address] [place] [address], [place] [address] Nov, [facility] [address] [id number] [address] [place] [address], [place] [address] Nov, [facility] [address] [id number] [address] [place] [address], [place] [address] Nov, [facility] [address] [id number] [address] [place] [address], [place] [address] Nov, [facility] [address] [id number] [address] [place] [address], [place] [address] Oct, [facility] [address] [id number] [address] [place] [address], [place] [address] Oct, [facility] [address] [id number] [address] [place] [address], [place] [address] Oct, [facility] [address] [id number] [address] [place] [address], [place] [address] Oct, [facility] [address] [id number] [address] [place] [address], [place] [address] Sep, [facility] [address] [id number] [address] [place] [address], [place] [address] Sep, [facility] [address] [id number] [address] [place] [address], [place] [address] Sep, [facility] [address] [id number] [address] [place] [address], [place] [address] Sep, [facility] [address] [id number] [address] [place] [address], [place] [address] Sep, [facility] [address] [id number] [address] [place] [address], [place] [address] Sep, [facility] [address] [id number] [address] [place] [address], [place] [address] Sep, [facility] [address] [id number] [address] [place] [address], [place] [address] 18 Sep, 2013 [facility] [address] [id number] [address] [place] [address], [place] [address] 30 Jul, 2013 [facility] [address] [id number] [address] [place] [address], [place] [address] 26 Jul, 2013 [facility] [address] [id number] [address] [place] [address], [place] [address] 17 May, 2013 [facility] [address] [id number] [address] [place] [address], [place] [address] 26 Apr, 2013 [facility] [address] [id number] [address] [place] [address], [place] [address] 24 Apr, 2013 [facility] [address] [id number] [address] [place] [address], [place] [address] 20 Apr, 2013 [facility] [address] [id number] [address] [place] [address], [place] [address] Apr, [facility] [address] [id number] [address] [place] [address], [place] [address] 13 Apr, 2013 [facility] [address] [id number] [address] [place] [address], [place] [address] 10 Apr, 2013 [facility] [address] [id number] [address] [place] [address], [place] [address] Apr, [facility] [address] [id number] [address] [place] [address], [place] [address] March, [facility] [address] [id number] [address] [place] [address], [place] [address] March, [facility] [address] [id number] [address] [place] [address], [place] [address] Jan, [facility] [address] [id number] [address] [place] [address], [place] [address] Dec, [facility] [address] [id number] [address] [place] [address], [place] [address] Nov, [facility] [address] [id number] [address] [place] [address], [place] [address] Nov, [facility] [address] [id number] [address] [place] [address], [place] [address] Oct, [facility] [address] [id number] [address] [place] [address], [place] [address] Oct, [facility] [address] [id number] [address] [place] [address], [place] [address] Oct, [facility] [address] [id number] [address] [place] [address], [place] [address] Oct, [facility] [address] [id number] [address] [place] [address], [place] [address] Oct, [facility] [address] [id number] [address] [place] [address], [place] [address] Oct, [facility] [address] [id number] [address] [place] [address], [place] [address] Sep, [facility] [address] [id number] [address] [place] [address], [place] [address] Sep, [facility] [address] [id number] [address] [place] [address], [place] [address] Sep, [facility] [address] [id number] [address] [place] [address], [place] [address] Sep, [facility] [address] [id number] [address] [place] [address], [place] [address] Sep, [facility] [address] [id number] [address] [place] [address], [place] [address] Sep, [facility] [address] [id number] [address] [place] [address], [place] [address] Sep, [facility] [address] [id number] [address] [place] [address], [place] [address] Sep, [facility] [address] [id number] [address] [place] [address], [place] [address] Sep, [facility] [address] [id number] [address] [place] [address], [place] [address] Sep, [facility] [address] [id number] [address] [place] [address], [place] [address] Sep, [facility] [address] [id number] [address] [place] [address], [place] [address] Sep, [facility] [address] [id number] [address] [place] [address], [place] [address] Aug, [facility] [address] [id number] [address] [place] [id number] Aug, [facility] [address] [id number] [address] [place] [address], [place] [address] Aug, [facility] [address] [id number] [address] [place] [id number] Aug, [facility] [address] [id number] [address] [place] [id number] Aug, [facility] [address] [id number] [address] [place] [address] Aug, [facility] [address] [id number] [address] [place] [id number] Aug, [facility] [address] [id number] [address] [place] [address], [place] [address] Aug, [facility] [address] [id number] [address] [place] [address], [place] [address] Aug, [facility] [address] [id number] [address] [place] [address], [place] [address] Aug, [facility] [address] [id number] [address] [place] [address], [place] [address] 24 Jul, 2012 [facility] [address] [id number] [address] [place] [address], [place] [address] Jul, [facility] [address] [id number] [address] [place] [address], [place] [address] Jun, [facility] [address] [id number] [address] [place] [address], [place] [address] Jun, [facility] [address] [id number] [address] [place] [address], [place] [address] Jun, [facility] [address] [id number] [address] [place] [address], [place] [address] May, [facility] [address] [id number] [address] [place] [address], [place] [address] May, [facility] [address] [id number] [address] [place] [address], [place] [address] May, [facility] [address] [id number] [address] [place] [address], [place] [address] May, [facility] [address] [id number] [address] [place] [address], [place] [address] Apr, [facility] [address] [id number] [address] [place] [address], [place] [address] Apr, [facility] [address] [id number] [address] [place] [address], [place] [address] Apr, [facility] [address] [id number] [address] [place] [address], [place] [address] Apr, [facility] [address] [id number] [address] [place] [address], [place] [address] March, [facility] [address] [id number] [address] [place] [address], [place] [address] Jan, [facility] [address] [id number] [address] [place] [address], [place] [address] Dec, [facility] [address] [id number] [address] [place] [address], [place] [address] Dec, [facility] [address] [id number] [address] [place] [address], [place] [address] Oct, [facility] [address] [id number] [address] [place] [address], [place] [address] Oct, [facility] [address] [id number] [address] [place] [address], [place] [address] Oct, [facility] [address] [id number] [address] [place] [address], [place] [address] Oct, [facility] [address] [id number] [address] [place] [address], [place] [address] 15 Oct, 2011 [facility] [address] [id number] [address] [place] [address], [place] [id number] Oct, [facility] [address] [id number] [address] [place] [address], [place] [address] Oct, [facility] [address] [id number] [address] [place] [address], [place] [id number] 05 Oct, 2011 [facility] [address] [id number] [address] [place] [address], [place] [address] Sep, [facility] [address] [id number] [address] [place] [address], [place] [address] 28 Sep, 2011 [facility] [address] [id number] [address] [place] [address], [place] [address] 15 Sep, 2011 [facility] [address] [id number] [address] [place] [id number] 15 Sep, 2011 [facility] [address] [facility] [id number] [address] [place] [id number] Aug, [facility] [address] [facility] [id number] [address] [place] [id number] 15 Jul, 2011 IMMUNIZATIONS No Known Immunizations SOCIAL HISTORY Never Assessed REASON FOR VISIT PLAN OF CARE VITAL SIGNS MEDICATIONS No Known Medications RESULTS No Results PROCEDURES Procedure Date Ordered Result Body Site BL SMEAR W/DIFF WBC COUNT Dec 01, 2014 ASSAY, DIPROPYLACETIC ACID Dec 01, 2014 COMPREHEN METABOLIC PANEL Dec 01, 2014 MANUAL CELL COUNT, EACH Dec 01, 2014 VENIPUNCT, ROUTINE* Dec 01, 2014 INSTRUCTIONS MEDICATIONS ADMINISTERED No Known Medications MEDICAL (GENERAL) HISTORY Type Description Date Medical History seizures Medical History allergic rhinitis Medical History mood disorder Medical History back pain Surgical History tonsillectomy Hospitalization History Seizure activity - [facility]. 07/2018
--- OUTSIDE RECORDS SUMMARY | 2020-02-03 17:05 | XMS REPORT ---
Author Author Derek KEITH Organization [facility] Address [address] [place] [address] Care Team Providers Care Aviation Consultant Name Role Phone ARMANI KEITH Unavailable PROBLEMS Type Condition ICD9-CM Code KEG48-UT Code Onset Dates Condition S tatus SNOMED Code Problem Bladder spasms N32.89 Active 06136 7006 Problem Migraine with aura and without status migrainosu s, not intractable G43.109 Active 6797537 Problem Migraine with aura and without status migrainosu s, not intractable G43.109 Active 5935616 Problem Seasonal allergic rhinitis due to other allergic trigger J30.89 Active 255802595 Problem Anxiety F41.9 Active 31019920 Problem Mood disorder F39 Active 145878 05 Problem 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 10524632 ALLERGIES No Information ENCOUNTERS Encounter Location Date Diagnosis [facility] [address] [address] May, Nonintractable absence epile psy without status epilepticus G40.A09 and Migraine with aura and without status migrainosus, not intractable G43.109 [facility] [address] [facility] [id number] [address] [place] [address] Apr, [facility] [address] [facility] [id number] [address] [place] [address] March, [facility] [address] [facility] [id number] [address] [place] [address] Feb, Acute midline low back pain without sciatica M54.5 [facility] [address] [facility] [id number] [address] [place] [address] Feb, Seizures R56.9 [facility] [address] [place] [id number] [address] [place] [address] Jan, [facility] [address] [place] [id number] [place] [id number] 14 Jan, 2019 Bronchitis J40 and Pleurisy R09.1 [facility] [address] [facility] [id number] [address] [place] [address] 12 Jan, 2019 Acute bronchitis, unspecifie d organism J20.9 and Fever R50.9 [facility] [address] [address] Jan, [facility] [address] [address] Jan, Seizures R56.9 [facility] [address] [place] [id number] [place] [address] Nov, [facility] [address] [address] Nov, [facility] [address] [address] Nov, Nonintractable absence epile psy without status epilepticus G40.A09 and Palpitations R00.2 [place] [address] [address] Nov, [facility] [address] [address] Oct, [facility] [address] [address] Sep, [facility] [address] [address] Aug, Seizures R56.9 and Mood diso rder F39 [facility] [address] [place] [id number] [address] [place] [address] 18 Jul, 2018 Dysuria R30.0 and Bladder sp asms N32.89 [place] [address] [place] [address] Jul, [facility] [address] [id number] [address] [place] [address] March, Elevated liver enzymes R74.8 and Abnormal CBC R79.89 [facility] [address] [facility] [id number] [address] [place] [address] March, Encounter for immunization Z 23 [facility] [address] [facility] [id number] [address] [place] [address] March, [facility] [address] [facility] [id number] [address] [place] [address] March, [facility] [address] [facility] [id number] [address] [place] [address] March, Elevated liver enzymes R74.8 and Abnormal CBC R79.89 [facility] [address] [facility] [id number] [address] [place] [address] March, Anxiety F41.9 ; Bronchitis J 40 and Seasonal allergic rhinitis due to other allergic trigger J30.89 [facility] [address] [facility] [id number] [address] [place] [address] March, [facility] [address] [facility] [id number] [address] [place] [address] Feb, [facility] [address] [facility] [id number] [address] [place] [address] Feb, Pharyngitis due to other org anism J02.8 [facility] [address] [facility] [id number] [address] [place] [address] Feb, Pharyngitis due to other org anism J02.8 [facility] [address] [facility] [id number] [address] [place] [address] Feb, Sore throat J02.9 ; Fatigue, unspecified type R53.83 and Strep pharyngitis J02.0 [facility] [address] [facility] [id number] [address] [place] [address] Feb, Acute nasopharyngitis J00 [facility] [address] [address] Feb, Lower abdominal pain R10.30 [facility] [place] [address] [address] Feb, Bladder spasms N32.89 and Ur inary frequency R35.0 [facility] [address] [address] Jan, Strep throat J02.0 [facility] [place] [address] [address] Dec, Seasonal allergic rhinitis, unspecified trigger J30.2 [place] [address] [address] Nov, Acute suppurative otitis med ia of both ears without spontaneous rupture of tympanic membranes, recurrence not specified H66.003 [facility] [place] [address] [address] Nov, Acute suppurative otitis med ia of both ears without spontaneous rupture of tympanic membranes, recurrence not specified H66.003 [facility] [place] [address] [address] Nov, Acute suppurative otitis med ia of both ears without spontaneous rupture of tympanic membranes, recurrence not specified H66.003 [place] [address] [place] [id number] [address] [place] [address] Oct, [place] [address] [address] Jul, Seizures R56.9 [place] [address] [address] 14 Jul, 2017 Seizures R56.9 ; Other chron ic pain G89.29 ; Pain in left ankle and joints of left foot M25.572 and Allergic rhinitis, unspecified allergic rhinitis trigger, unspecified rhinitis seasonality J30.9 [facility] N [address] [address] 07 Jul, 2017 Acute seasonal allergic rhin itis due to other allergen J30.89 [facility] [address] [place] [id number] [place] [address] Jun, Left foot pain M79.672 and L eft lateral ankle pain M25.572 [facility] [address] [address] Aug, Allergic rhinitis, unspecifi ed allergic rhinitis trigger, unspecified rhinitis seasonality J30.9 ; Low back pain M54.5 and Other chronic pain G89.29 [facility] [address] [place] [address] Jul, [facility] [address] [place] [address] Jul, Low back pain M54.5 and Othe r chronic pain G89.29 [facility] [address] [place] [address] Jul, Acute maxillary sinusitis, r ecurrence not specified J01.00 [facility] [address] [place] [address] Jun, Cellulitis of left lower ext remity L03.116 [facility] [address] [place] [address] Apr, Wrist pain, left M25.532 [facility] [address] [place] [address] March, Low back pain M54.5 ; Fever, unspecified R50.9 and Strep pharyngitis J02.0 [facility] [address] [place] [address] March, Hordeolum externum of left u pper eyelid H00.014 and Acute follicular conjunctivitis of left eye H10.012 [place] [address] [address] Jan, Folliculitis L73.9 [facility] [place] [address] [address] Jan, Screen for sexually transmit yayo diseases Z11.3 [place] [address] [address] Nov, [place] [address] [address] Nov, Gen idiopathic epilepsy, not intractable, 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 [place] [address] [address] Nov, Malaise R53.81 ; Upper respi ratory infection J06.9 and Pharyngitis J02.9 [place] [address] [address] Nov, Acute pharyngitis, unspecifi ed J02.9 ; Acute upper respiratory infection, unspecified J06.9 ; Other viral agents as the cause of diseases classified elsewhere B97.89 and Allergic rhinitis J30.9 [place] [address] [address] Oct, Testicular pain N50.8 [place] [address] [address] 15 Jul, 2015 Sinusitis 473.9 [place] [address] [address] 12 Apr, 2015 Back pain 724.5 [place] [address] [address] 11 Apr, 2015 [place] [address] [address] 14 Feb, 2015 [facility] [address] [id number] [address] [place] [address], [place] [address] Feb, [facility] [address] [id number] [address] [place] [address], [place] [address] Jan, [facility] [address] [id number] [address] [place] [address], [place] [address] Nov, [facility] [address] [id number] [address] [place] [address], [place] [address] Nov, [facility] [address] [id number] [address] [place] [address], [place] [address] Nov, [facility] [address] [id number] [address] [place] [address], [place] [address] Nov, [facility] [address] [id number] [address] [place] [address], [place] [address] Oct, [facility] [address] [id number] [address] [place] [address], [place] [address] Oct, [facility] [address] [id number] [address] [place] [address], [place] [address] Aug, [facility] [address] [id number] [address] [place] [address] Aug, [facility] [address] [id number] [address] [place] [address] Aug, [facility] [address] [id number] [address] [place] [address] Aug, [facility] [address] [id number] [address] [place] [address], [place] [address] Aug, [facility] [address] [id number] [address] [place] [address], [place] [address] Aug, [facility] [address] [id number] [address] [place] [address] Aug, [facility] [address] [id number] [address] [place] [address] Aug, [facility] [address] [id number] [address] [place] [address], [place] [address] Jun, [facility] [address] [id number] [address] [place] [address], [place] [address] Jun, [facility] [address] [id number] [address] [place] [address], [place] [address] Jun, [facility] [address] [id number] [address] [place] [address], [place] [address] Jun, [facility] [address] [id number] [address] [place] [address], [place] [address] Jun, [facility] [address] [id number] [address] [place] [address], [place] [address] Jun, [facility] [address] [id number] [address] [place] [address], [place] [address] Jun, [facility] [address] [id number] [address] [place] [address], [place] [address] Jun, [facility] [address] [id number] [address] [place] [address], [place] [address] Jun, [facility] [address] [id number] [address] [place] [address], [place] [address] Jun, [facility] [address] [id number] [address] [place] [address], [place] [address] May, [facility] [address] [id number] [address] [place] [address], [place] [address] May, [facility] [address] [id number] [address] [place] [address], [place] [address] March, [facility] [place] [facility] [address] [id number] [address] [place] [address], [place] [address] March, [facility] [address] [id number] [address] [place] [address], [place] [address] March, [facility] [place] [facility] [address] [id number] [address] [place] [address], [place] [address] March, [facility] [address] [id number] [address] [place] [address], [place] [address] Feb, [facility] [place] [facility] [address] [id number] [address] [place] [address], [place] [address] Feb, [facility] [address] [id number] [address] [place] [address], [place] [address] Jan, [facility] [address] [id number] [address] [place] [address], [place] [address] Jan, [facility] [address] [id number] [address] [place] [address], [place] [address] Jan, [facility] [address] [id number] [address] [place] [address], [place] [address] Jan, [facility] [address] [id number] [address] [place] [address], [place] [address] Dec, [facility] [address] [id number] [address] [place] [address], [place] [address] Dec, [facility] [address] [id number] [address] [place] [address], [place] [address] Dec, [facility] [address] [id number] [address] [place] [address], [place] [address] Dec, [facility] [address] [id number] [address] [place] [address], [place] [address] Dec, [facility] [address] [id number] [address] [place] [address], [place] [address] Dec, [facility] [place] [facility] [address] [id number] [address] [place] [address], [place] [address] Nov, [facility] [place] [facility] [address] [id number] [address] [place] [address], [place] [address] Nov, [facility] [place] [facility] [address] [id number] [address] [place] [address], [place] [address] Nov, [facility] [address] [id number] [address] [place] [address], [place] [address] Nov, [facility] [address] [id number] [address] [place] [address], [place] [address] Nov, [facility] [address] [id number] [address] [place] [address], [place] [address] Nov, [facility] [address] [id number] [address] [place] [address], [place] [address] Nov, [facility] [address] [id number] [address] [place] [address], [place] [address] Nov, [facility] [address] [id number] [address] [place] [address], [place] [address] Nov, [facility] [address] [id number] [address] [place] [address], [place] [address] Nov, [facility] [address] [id number] [address] [place] [address], [place] [address] Nov, [facility] [address] [id number] [address] [place] [address], [place] [address] Nov, [facility] [address] [id number] [address] [place] [address], [place] [address] Oct, [facility] [address] [id number] [address] [place] [address], [place] [address] Oct, [facility] [address] [id number] [address] [place] [address], [place] [address] Oct, [facility] [address] [id number] [address] [place] [address], [place] [address] Oct, [facility] [address] [id number] [address] [place] [address], [place] [address] Sep, [facility] [address] [id number] [address] [place] [address], [place] [address] Sep, [facility] [address] [id number] [address] [place] [address], [place] [address] Sep, [facility] [address] [id number] [address] [place] [address], [place] [address] Sep, [facility] [address] [id number] [address] [place] [address], [place] [address] Sep, [facility] [address] [id number] [address] [place] [address], [place] [address] Sep, [facility] [address] [id number] [address] [place] [address], [place] [address] Sep, [facility] [address] [id number] [address] [place] [address], [place] [address] 18 Sep, 2013 [facility] [address] [id number] [address] [place] [address], [place] [address] 30 Jul, 2013 [facility] [address] [id number] [address] [place] [address], [place] [address] 26 Jul, 2013 [facility] [address] [id number] [address] [place] [address], [place] [address] 17 May, 2013 [facility] [address] [id number] [address] [place] [address], [place] [address] 26 Apr, 2013 [facility] [address] [id number] [address] [place] [address], [place] [address] 24 Apr, 2013 [facility] [address] [id number] [address] [place] [address], [place] [address] 20 Apr, 2013 [facility] [address] [id number] [address] [place] [address], [place] [address] Apr, [facility] [address] [id number] [address] [place] [address], [place] [address] 13 Apr, 2013 [facility] [address] [id number] [address] [place] [address], [place] [address] 10 Apr, 2013 [facility] [address] [id number] [address] [place] [address], [place] [address] Apr, [facility] [address] [id number] [address] [place] [address], [place] [address] March, [facility] [address] [id number] [address] [place] [address], [place] [address] March, [facility] [address] [id number] [address] [place] [address], [place] [address] Jan, [facility] [address] [id number] [address] [place] [address], [place] [address] Dec, [facility] [address] [id number] [address] [place] [address], [place] [address] Nov, [facility] [address] [id number] [address] [place] [address], [place] [address] Nov, [facility] [address] [id number] [address] [place] [address], [place] [address] Oct, [facility] [address] [id number] [address] [place] [address], [place] [address] Oct, [facility] [address] [id number] [address] [place] [address], [place] [address] Oct, [facility] [address] [id number] [address] [place] [address], [place] [address] Oct, [facility] [address] [id number] [address] [place] [address], [place] [address] Oct, [facility] [address] [id number] [address] [place] [address], [place] [address] Oct, [facility] [address] [id number] [address] [place] [address], [place] [address] Sep, [facility] [address] [id number] [address] [place] [address], [place] [address] Sep, [facility] [address] [id number] [address] [place] [address], [place] [address] Sep, [facility] [address] [id number] [address] [place] [address], [place] [address] Sep, [facility] [address] [id number] [address] [place] [address], [place] [address] Sep, [facility] [address] [id number] [address] [place] [address], [place] [address] Sep, [facility] [address] [id number] [address] [place] [address], [place] [address] Sep, [facility] [address] [id number] [address] [place] [address], [place] [address] Sep, [facility] [address] [id number] [address] [place] [address], [place] [address] Sep, [facility] [address] [id number] [address] [place] [address], [place] [address] Sep, [facility] [address] [id number] [address] [place] [address], [place] [address] Sep, [facility] [address] [id number] [address] [place] [address], [place] [address] Sep, [facility] [address] [id number] [address] [place] [address], [place] [address] Aug, [facility] [address] [id number] [address] [place] [id number] Aug, [facility] [address] [id number] [address] [place] [address], [place] [address] Aug, [facility] [address] [id number] [address] [place] [id number] Aug, [facility] [address] [id number] [address] [place] [id number] Aug, [facility] [address] [id number] [address] [place] [id number] Aug, [facility] [address] [id number] [address] [place] [id number] Aug, [facility] [address] [id number] [address] [place] [address], [place] [address] Aug, [facility] [address] [id number] [address] [place] [address], [place] [address] Aug, [facility] [address] [id number] [address] [place] [address], [place] [address] Aug, [facility] [address] [id number] [address] [place] [address], [place] [address] 24 Jul, 2012 [facility] [address] [id number] [address] [place] [address], [place] [address] Jul, [facility] [address] [id number] [address] [place] [address], [place] [address] Jun, [facility] [address] [id number] [address] [place] [address], [place] [address] Jun, [facility] [address] [id number] [address] [place] [address], [place] [address] Jun, [facility] [address] [id number] [address] [place] [address], [place] [address] May, [facility] [address] [id number] [address] [place] [address], [place] [address] May, [facility] [address] [id number] [address] [place] [address], [place] [address] May, [facility] [address] [id number] [address] [place] [address], [place] [address] May, [facility] [address] [id number] [address] [place] [address], [place] [address] Apr, [facility] [address] [id number] [address] [place] [address], [place] [address] Apr, [facility] [address] [id number] [address] [place] [address], [place] [id number] Apr, [facility] [address] [id number] [address] [place] [address], [place] [address] Apr, [facility] [address] [id number] [address] [place] [address], [place] [address] March, [facility] [address] [id number] [address] [place] [address], [place] [address] Jan, [facility] [address] [id number] [address] [place] [address], [place] [address] Dec, [facility] [address] [id number] [address] [place] [address], [place] [address] Dec, [facility] [address] [id number] [address] [place] [address], [place] [address] Oct, [facility] [address] [id number] [address] [place] [address], [place] [address] Oct, [facility] [address] [id number] [address] [place] [address], [place] [address] Oct, [facility] [address] [id number] [address] [place] [address], [place] [address] Oct, [facility] [address] [id number] [address] [place] [address], [place] [address] 15 Oct, 2011 [facility] [address] [id number] [address] [place] [address], [place] [address] Oct, [facility] [address] [id number] [address] [place] [address], [place] [address] Oct, [facility] [address] [id number] [address] [place] [address], [place] [address] 05 Oct, 2011 [facility] [address] [id number] [address] [place] [address], [place] [address] Sep, [facility] [address] [id number] [address] [place] [address], [place] [address] 28 Sep, 2011 [facility] [address] [id number] [address] [place] [address], [place] [address] 15 Sep, 2011 [facility] [address] [id number] [address] [place] [id number] 15 Sep, 2011 [facility] [address] [facility] [id number] [address] [place] [id number] 11 Aug, 2011 [facility] [address] [facility] [id number] [address] [place] [id number] 15 Jul, 2011 IMMUNIZATIONS No Known Immunizations SOCIAL HISTORY Never Assessed REASON FOR VISIT PLAN OF CARE VITAL SIGNS Height 74 in 2012-05-31 Weight 189 lbs 2012-05-31 Temperature 98.3 degrees Fahrenheit 2012-05-31 Heart Rate 64 bpm 2012-05-31 Respiratory Rate 16 2012-05-31 Blood pressure systolic 112 mmHg 2012-05-31 Blood pressure diastolic 70 mmHg 2012-05-31 MEDICATIONS No Known Medications RESULTS No Results PROCEDURES No Known procedures INSTRUCTIONS MEDICATIONS ADMINISTERED No Known Medications MEDICAL (GENERAL) HISTORY Type Description Date Medical History seizures Medical History allergic rhinitis Medical History mood disorder Medical History back pain Surgical History tonsillectomy Hospitalization History Seizure activity - [facility] ER. 07/2018
--- OUTSIDE RECORDS SUMMARY | 2020-02-03 17:05 | XMS REPORT ---
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 Name Role Phone Migration, Doctor Unavailable Unavailable PROBLEMS Type Condition ICD9-CM Code [id number] Code Onset Dates Condition S tatus SNOMED Code Problem Bladder spasms N32.89 Active 01745 7006 Problem Migraine with aura and without status migrainosu s, not intractable G43.109 Active 7547727 Problem Migraine with aura and without status migrainosu s, not intractable G43.109 Active 3139184 Problem Seasonal allergic rhinitis due to other allergic trigger J30.89 Active 620774345 Problem Anxiety F41.9 Active 27011203 Problem Mood disorder F39 Active 818384 05 Problem 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 32409801 ALLERGIES No Information ENCOUNTERS Encounter Location Date Diagnosis [facility] [address] [facility] [id number] [address] [place] [address] May, Nonintractable absence epile psy without status epilepticus G40.A09 and Migraine with aura and without status migrainosus, not intractable G43.109 [facility] [address] [facility] [id number] [address] [place] [address] Apr, [facility] [address] [facility] [id number] [address] [place] [address] March, [facility] [address] [facility] [id number] [address] [place] [address] Feb, Acute midline low back pain without sciatica M54.5 [facility] [address] [facility] [id number] [address] [place] [address] Feb, Seizures R56.9 [facility] [address] [facility] [id number] [address] [place] [address] Jan, [facility] [address] [address] 14 Jan, 2019 Bronchitis J40 and Pleurisy R09.1 [facility] [address] [place] [id number] [place] [address] 12 Jan, 2019 Acute bronchitis, unspecifie d organism J20.9 and Fever R50.9 [facility] [address] [address] Jan, [facility] [address] [address] Jan, Seizures R56.9 [place] [address] [address] Nov, [facility] [address] [address] Nov, [facility] [address] [address] Nov, Nonintractable absence epile psy without status epilepticus G40.A09 and Palpitations R00.2 [place] [address] [address] Nov, [facility] [address] [address] Oct, [facility] [address] [address] Sep, [facility] [address] [address] Aug, Seizures R56.9 and Mood diso rder F39 [place] [address] [address] 18 Jul, 2018 Dysuria R30.0 and Bladder sp asms N32.89 [facility] [address] [address] Jul, [place] [address] [id number] [address] [place] [address] March, Elevated liver enzymes R74.8 and Abnormal CBC R79.89 [facility] [address] [facility] [id number] [address] [place] [address] March, Encounter for immunization Z 23 [facility] [address] [facility] [id number] [address] [place] [address] March, [facility] [address] [facility] [id number] [address] [place] [address] March, [facility] [address] [facility] [id number] [address] [place] [address] March, Elevated liver enzymes R74.8 and Abnormal CBC R79.89 [facility] [address] [facility] [id number] [address] [place] [address] March, Anxiety F41.9 ; Bronchitis J 40 and Seasonal allergic rhinitis due to other allergic trigger J30.89 [facility] [address] [facility] [id number] [address] [place] [address] March, [facility] [address] [facility] [id number] [address] [place] [address] Feb, [facility] [address] [facility] [id number] [address] [place] [address] Feb, Pharyngitis due to other org anism J02.8 [facility] [address] [facility] [id number] [address] [place] [address] Feb, Pharyngitis due to other org anism J02.8 [facility] [address] [facility] [id number] [address] [place] [address] Feb, Sore throat J02.9 ; Fatigue, unspecified type R53.83 and Strep pharyngitis J02.0 [facility] [address] [facility] [id number] [address] [place] [address] Feb, Acute nasopharyngitis J00 [facility] [address] [address] Feb, Lower abdominal pain R10.30 [facility] [place] [address] [address] Feb, Bladder spasms N32.89 and Ur inary frequency R35.0 [facility] [place] [address] [address] Jan, Strep throat J02.0 [facility] [place] [address] [address] Dec, Seasonal allergic rhinitis, unspecified trigger J30.2 [place] [address] [address] Nov, Acute suppurative otitis med ia of both ears without spontaneous rupture of tympanic membranes, recurrence not specified H66.003 [facility] [place] [address] [address] Nov, Acute suppurative otitis med ia of both ears without spontaneous rupture of tympanic membranes, recurrence not specified H66.003 [facility] [place] [address] [address] Nov, Acute suppurative otitis med ia of both ears without spontaneous rupture of tympanic membranes, recurrence not specified H66.003 [place] [address] [address] Oct, [place] [address] [address] Jul, Seizures R56.9 [place] [address] [address] 14 Jul, 2017 Seizures R56.9 ; Other chron ic pain G89.29 ; Pain in left ankle and joints of left foot M25.572 and Allergic rhinitis, unspecified allergic rhinitis trigger, unspecified rhinitis seasonality J30.9 [facility] [address] [address] 07 Jul, 2017 Acute seasonal allergic rhin itis due to other allergen J30.89 [facility] N [address] [address] Jun, Left foot pain M79.672 and L eft lateral ankle pain M25.[address] [address] Aug, Allergic rhinitis, unspecifi ed allergic rhinitis trigger, unspecified rhinitis seasonality J30.9 ; Low back pain M54.5 and Other chronic pain G89.29 [facility] [address] [place] [address] Jul, [facility] [address] [address] Jul, Low back pain M54.5 and Othe r chronic pain G89.29 [facility] [address] [place] [address] Jul, Acute maxillary sinusitis, r ecurrence not specified J01.00 [facility] [address] [place] [address] Jun, Cellulitis of left lower ext remity L03.116 [facility] [address] [address] Apr, Wrist pain, left M25.532 [facility] [address] [address] March, Low back pain M54.5 ; Fever, unspecified R50.9 and Strep pharyngitis J02.0 [facility] [address] [place] [address] March, Hordeolum externum of left u pper eyelid H00.014 and Acute follicular conjunctivitis of left eye H10.012 [facility] [address] [address] Jan, Folliculitis L73.9 [facility] [place] [address] [address] Jan, Screen for sexually transmit yayo diseases Z11.3 [place] [address] [address] Nov, [place] [address] [address] Nov, Gen idiopathic epilepsy, not intractable, 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 [place] [address] [address] Nov, Malaise R53.81 ; Upper respi ratory infection J06.9 and Pharyngitis J02.9 [place] [address] [address] Nov, Acute pharyngitis, unspecifi ed J02.9 ; Acute upper respiratory infection, unspecified J06.9 ; Other viral agents as the cause of diseases classified elsewhere B97.89 and Allergic rhinitis J30.9 [place] [address] [address] 04 Oct, 2015 Testicular pain N50.8 [place] [address] [address] 15 Jul, 2015 Sinusitis 473.9 [place] [address] [address] 12 Apr, 2015 Back pain 724.5 [place] [address] [address] 11 Apr, 2015 [place] [address] [address] 14 Feb, 2015 [place] [address] [address] Feb, [facility] [address] [id number] [address] [place] [address], [place] [address] Jan, [facility] [address] [id number] [address] [place] [address], [place] [address] Nov, [facility] [address] [id number] [address] [place] [address], [place] [address] Nov, [facility] [address] [id number] [address] [place] [address] Nov, [facility] [address] [id number] [address] [place] [address], [place] [address] Nov, [facility] [address] [id number] [address] [place] [address], [place] [address] Oct, [facility] [address] [id number] [address] [place] [address], [place] [address] Oct, [facility] [address] [id number] [address] [place] [address], [place] [address] Aug, [facility] [address] [id number] [address] [place] [address], [place] [address] Aug, [facility] [address] [id number] [address] [place] [address], [place] [address] Aug, [facility] [address] [id number] [address] [place] [address], [place] [address] Aug, [facility] [address] [id number] [address] [place] [address] Aug, [facility] [address] [id number] [address] [place] [address], [place] [address] Aug, [facility] [address] [id number] [address] [place] [address], [place] [address] Aug, [facility] [address] [id number] [address] [place] [address], [place] [address] Aug, [facility] [address] [id number] [facility] [place] [address] Jun, [facility] [address] [id number] [address] [place] [address], [place] [address] Jun, [facility] [address] [id number] [facility] [place] [address] Jun, [facility] [address] [id number] [address] [place] [address], [place] [address] Jun, [facility] [address] [id number] [address] [place] [address], [place] [address] Jun, [facility] [address] [id number] [address] [place] [address], [place] [address] Jun, [facility] [address] [id number] [address] [place] [address], [place] [address] Jun, [facility] [address] [id number] [address] [place] [address], [place] [address] Jun, [facility] [address] [id number] [address] [place] [address], [place] [address] Jun, [facility] [address] [id number] [address] [place] [address], [place] [address] Jun, [facility] [address] [id number] [address] [place] [address], [place] [address] May, [facility] [address] [id number] [address] [place] [address], [place] [address] May, [facility] [address] [id number] [address] [place] [address], [place] [address] March, [facility] [address] [id number] [address] [place] [address], [place] [address] March, [facility] [address] [id number] [address] [place] [address], [place] [address] March, [facility] [address] [id number] [address] [place] [address], [place] [address] March, [facility] [address] [id number] [address] [place] [address], [place] [address] Feb, [facility] [address] [id number] [address] [place] [address], [place] [address] Feb, [facility] [address] [id number] [address] [place] [address], [place] [address] Jan, [facility] [address] [id number] [address] [place] [address], [place] [address] Jan, [facility] [address] [id number] [address] [place] [address], [place] [address] Jan, [facility] [address] [id number] [address] [place] [address], [place] [address] Jan, [facility] [address] [id number] [address] [place] [address], [place] [address] 18 Dec, 2013 [facility] [address] [id number] [address] [place] [address], [place] [address] 18 Dec, 2013 [facility] [address] [id number] [address] [place] [address], [place] [address] 14 Dec, 2013 [facility] [address] [id number] [address] [place] [address], [place] [address] Dec, [facility] [address] [id number] [address] [place] [address], [place] [address] Dec, [facility] [address] [id number] [address] [place] [address], [place] [address] Dec, [facility] [address] [id number] [address] [place] [address], [place] [address] Nov, [facility] [address] [id number] [address] [place] [address], [place] [address] Nov, [facility] [address] [id number] [address] [place] [address], [place] [address] Nov, [facility] [address] [id number] [address] [place] [address], [place] [address] Nov, [facility] [address] [id number] [address] [place] [address], [place] [address] Nov, [facility] [address] [id number] [address] [place] [address], [place] [address] Nov, [facility] [address] [id number] [address] [place] [address], [place] [address] Nov, [facility] [address] [id number] [address] [place] [address], [place] [address] Nov, [facility] [address] [id number] [address] [place] [address], [place] [address] Nov, [facility] [address] [id number] [address] [place] [address], [place] [address] Nov, [facility] [address] [id number] [address] [place] [address], [place] [address] Nov, [facility] [address] [id number] [address] [place] [address], [place] [address] Nov, [facility] [address] [id number] [address] [place] [address], [place] [address] Oct, [facility] [address] [id number] [address] [place] [address], [place] [address] Oct, [facility] [address] [id number] [address] [place] [address], [place] [address] Oct, [facility] [address] [id number] [address] [place] [address], [place] [address] Oct, [facility] [address] [id number] [address] [place] [address], [place] [address] Sep, [facility] [address] [id number] [address] [place] [address], [place] [address] Sep, [facility] [address] [id number] [address] [place] [address], [place] [address] Sep, [facility] [address] [id number] [address] [place] [address], [place] [address] Sep, [facility] [address] [id number] [address] [place] [address], [place] [address] Sep, [facility] [address] [id number] [address] [place] [address], [place] [address] Sep, [facility] [address] [id number] [address] [place] [address], [place] [address] Sep, [facility] [address] [id number] [address] [place] [address], [place] [address] Sep, [facility] [address] [id number] [address] [place] [address], [place] [address] 30 Jul, 2013 [facility] [address] [id number] [address] [place] [address], [place] [address] 26 Jul, 2013 [facility] [address] [id number] [address] [place] [address], [place] [address] May, [facility] [address] [id number] [address] [place] [address], [place] [address] Apr, [facility] [address] [id number] [address] [place] [address], [place] [address] 24 Apr, 2013 [facility] [address] [id number] [address] [place] [address], [place] [address] Apr, [facility] [address] [id number] [address] [place] [address] Apr, [facility] [address] [id number] [address] [place] [address], [place] [address] Apr, [facility] [address] [id number] [address] [place] [address] 10 Apr, 2013 [facility] [address] [id number] [address] [place] [address] 03 Apr, 2013 [facility] [address] [id number] [address] [place] [address] March, [facility] [address] [id number] [address] [place] [address], [place] [address] March, [facility] [address] [id number] [address] [place] [address], [place] [address] Jan, [facility] [address] [id number] [address] [place] [address], [place] [address] Dec, [facility] [address] [id number] [address] [place] [address], [place] [address] Nov, [facility] [address] [id number] [address] [place] [address], [place] [address] Nov, [facility] [address] [id number] [address] [place] [address], [place] [address] Oct, [facility] [address] [id number] [address] [place] [address], [place] [address] Oct, [facility] [address] [id number] [address] [place] [address], [place] [address] Oct, [facility] [address] [id number] [address] [place] [address], [place] [address] Oct, [facility] [address] [id number] [address] [place] [address], [place] [address] Oct, [facility] [address] [id number] [address] [place] [address], [place] [address] Oct, [facility] [address] [id number] [address] [place] [address], [place] [address] Sep, [facility] [address] [id number] [address] [place] [address], [place] [address] Sep, [facility] [address] [id number] [address] [place] [address], [place] [address] Sep, [facility] [address] [id number] [address] [place] [address], [place] [address] Sep, [facility] [address] [id number] [address] [place] [address], [place] [address] Sep, [facility] [address] [id number] [address] [place] [address], [place] [id number] Sep, [facility] [address] [id number] [address] [place] [address], [place] [id number] Sep, [facility] [address] [id number] [address] [place] [address], [place] [address] Sep, [facility] [address] [id number] [address] [place] [address], [place] [id number] Sep, [facility] [address] [id number] [address] [place] [address], [place] [address] Sep, [facility] [address] [id number] [address] [place] [address], [place] [address] Sep, [facility] [address] [id number] [address] [place] [address], [place] [address] Sep, [facility] [address] [id number] [address] [place] [address], [place] [id number] Aug, [facility] [address] [id number] [address] [place] [address], [place] [address] Aug, [facility] [address] [id number] [address] [place] [address], [place] [id number] Aug, [facility] [address] [id number] [address] [place] [address], [place] [id number] Aug, [facility] [address] [id number] [address] [place] [address], [place] [id number] Aug, [facility] [address] [id number] [address] [place] [address], [place] [id number] Aug, [facility] [address] [id number] [address] [place] [address], [place] [id number] Aug, [facility] [address] [id number] [address] [place] [address], [place] [id number] Aug, [facility] [address] [id number] [address] [place] [address], [place] [id number] Aug, [facility] [address] [id number] [address] [place] [address], [place] [id number] Aug, [facility] [address] [id number] [address] [place] [address], [place] [id number] Jul, [facility] [address] [id number] [address] [place] [address], [place] [address] Jul, [facility] [address] [id number] [address] [place] [address], [place] [id number] Jun, [facility] [address] [id number] [address] [place] [address], [place] [id number] Jun, [facility] [address] [id number] [address] [place] [address], [place] [id number] Jun, [facility] [address] [id number] [address] [place] [address], [place] [id number] May, [facility] [address] [id number] [address] [place] [address], [place] [address] May, [facility] [address] [id number] [address] [place] [address], [place] [address] May, [facility] [address] [id number] [address] [place] [address], [place] [id number] May, [facility] [address] [id number] [address] [place] [address], [place] [address] Apr, [facility] [address] [id number] [address] [place] [address], [place] [id number] Apr, [facility] [address] [id number] [address] [place] [address], [place] [id number] Apr, [facility] [address] [id number] [address] [place] [address], [place] [id number] Apr, [facility] [address] [id number] [address] [place] [address], [place] [id number] March, [facility] [address] [id number] [address] [place] [address], [place] [address] Jan, [facility] [address] [id number] [address] [place] [address], [place] [address] Dec, [facility] [address] [id number] [address] [place] [address], [place] [address] Dec, [facility] [address] [id number] [address] [place] [address], [place] [id number] Oct, [facility] [address] [id number] [address] [place] [address], [place] [id number] 27 Oct, 2011 [facility] [address] [id number] [address] [place] [address], [place] [id number] 23 Oct, 2011 [facility] [address] [id number] [address] [place] [address], [place] [id number] Oct, [facility] [address] [id number] [address] [place] [address], [place] [id number] 15 Oct, 2011 [facility] [address] [id number] [address] [place] [address], [place] [id number] 15 Oct, 2011 [facility] [address] [id number] [address] [place] [address], [place] [id number] 13 Oct, 2011 [facility] [address] [id number] [address] [place] [address], [place] [id number] 05 Oct, 2011 [facility] [address] [id number] [address] [place] [address], [place] [id number] 28 Sep, 2011 [facility] [address] [id number] [address] [place] [address], [place] [id number] 28 Sep, 2011 [facility] [address] [id number] [address] [place] [address], [place] [id number] 15 Sep, 2011 [facility] [address] [id number] [address] [place] [address], [place] [id number] Sep, [facility] [address] [facility] [id number] [address] [place] [id number] Aug, [facility] [address] [facility] [id number] [address] [place] [id number] 15 Jul, 2011 IMMUNIZATIONS No Known Immunizations [...] History tonsillectomy Hospitalization History Seizure activity - [facility]. 07/2018
--- OUTSIDE RECORDS SUMMARY | 2020-02-03 17:05 | XMS REPORT ---
Author Author Derek GRANADOS Organization [facility] Address [address] [place] [address] Care Team Providers Care Supervisor Machine Workers Name Role Phone THANIA GRANADOS Unavailable PROBLEMS Type Condition ICD9-CM Code XMH30-QD Code Onset Dates Condition S tatus SNOMED Code Problem Bladder spasms N32.89 Active 58201 7006 Problem Migraine with aura and without status migrainosu s, not intractable G43.109 Active 9375729 Problem Migraine with aura and without status migrainosu s, not intractable G43.109 Active 4902268 Problem Seasonal allergic rhinitis due to other allergic trigger J30.89 Active 306537813 Problem Anxiety F41.9 Active 89682191 Problem Mood disorder F39 Active 522330 05 Problem 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 39676774 ALLERGIES Substance Reaction Event Type Date Status Sulfamethoxazole-TMP DS other Drug Allergy Jan, Acti ve Cephalexin rash Drug Allergy Jan, Active Amoxicillin Unknown Drug Allergy Jan, Active ENCOUNTERS Encounter Location Date Diagnosis [facility] [address] [place] [place] [id number] [address] [place] [address] May, Nonintractable absence epile psy without status epilepticus G40.A09 and Migraine with aura and without status migrainosus, not intractable G43.109 [facility] [address] [facility] [id number] [address] [place] [address] Apr, [facility] [address] [id number] [address] [place] [address] March, [facility] [address] [facility] [id number] [address] [place] [address] Feb, Acute midline low back pain without sciatica M54.5 [facility] [address] [facility] [id number] [address] [place] [address] Feb, Seizures R56.9 [facility] [address] [facility] [id number] [address] [place] [address] Jan, [facility] [address] [facility] [id number] [address] [place] [address] 14 Jan, 2019 Bronchitis J40 and Pleurisy R09.1 [facility] [address] [facility] [id number] [address] [place] [address] 12 Jan, 2019 Acute bronchitis, unspecifie d organism J20.9 and Fever R50.9 [facility] [address] [facility] [id number] [address] [place] [address] Jan, [facility] [address] [facility] [id number] [address] [place] [address] Jan, Seizures R56.9 [facility] [address] [facility] [id number] [address] [place] [address] Nov, [facility] [address] [facility] [id number] [address] [place] [address] Nov, [facility] [address] [id number] [address] [place] [address] Nov, Nonintractable absence epile psy without status epilepticus G40.A09 and Palpitations R00.2 [facility] [address] [facility] [id number] [address] [place] [address] Nov, [facility] [address] [facility] [id number] [address] [place] [address] Oct, [facility] [address] [place] [id number] [address] [place] [address] Sep, [facility] [address] [facility] [id number] [address] [place] [address] Aug, Seizures R56.9 and Mood diso rder F39 [facility] [address] [facility] [id number] [address] [place] [address] Jul, Dysuria R30.0 and Bladder sp asms N32.89 [facility] [address] [facility] [id number] [address] [place] [address] Jul, [facility] [address] [facility] [id number] [address] [place] [address] March, Elevated liver enzymes R74.8 and Abnormal CBC R79.89 [facility] [address] [facility] [id number] [address] [place] [address] March, Encounter for immunization Z 23 [facility] [address] [facility] [id number] [place] [address] March, [facility] [address] [facility] [id number] [address] [place] [address] March, [facility] [address] [place] [id number] [place] [address] March, Elevated liver enzymes R74.8 and Abnormal CBC R79.89 [facility] [address] [facility] [id number] [address] [place] [address] March, Anxiety F41.9 ; Bronchitis J 40 and Seasonal allergic rhinitis due to other allergic trigger J30.89 [facility] [address] [facility] [id number] [address] [place] [address] March, [facility] [address] [facility] [id number] [address] [place] [address] Feb, [facility] [address] [facility] [id number] [address] [place] [address] Feb, Pharyngitis due to other org anism J02.8 [facility] [address] [facility] [id number] [address] [place] [address] Feb, Pharyngitis due to other org anism J02.8 [facility] [address] [facility] [id number] [address] [place] [address] Feb, Sore throat J02.9 ; Fatigue, unspecified type R53.83 and Strep pharyngitis J02.0 [facility] [address] [address] Feb, Acute nasopharyngitis J00 [facility] [address] [address] Feb, Lower abdominal pain R10.30 [facility] [address] [address] Feb, Bladder spasms N32.89 and Ur inary frequency R35.0 [facility] [address] [address] Jan, Strep throat J02.0 [facility] [address] [address] Dec, Seasonal allergic rhinitis, unspecified trigger J30.2 [place] [address] [address] Nov, Acute suppurative otitis med ia of both ears without spontaneous rupture of tympanic membranes, recurrence not specified H66.003 [facility] [address] [address] Nov, Acute suppurative otitis med ia of both ears without spontaneous rupture of tympanic membranes, recurrence not specified H66.003 [facility] [address] [address] Nov, Acute suppurative otitis med ia of both ears without spontaneous rupture of tympanic membranes, recurrence not specified H66.003 [place] [address] [address] Oct, [place] [address] [address] Jul, Seizures R56.9 [place] [address] [address] 14 Jul, 2017 Seizures R56.9 ; Other chron ic pain G89.29 ; Pain in left ankle and joints of left foot M25.572 and Allergic rhinitis, unspecified allergic rhinitis trigger, unspecified rhinitis seasonality J30.9 [facility] [address] [place] [address] 07 Jul, 2017 Acute seasonal allergic rhin itis due to other allergen J30.89 [facility] [address] [place] [address] Jun, Left foot pain M79.672 and L eft lateral ankle pain M25.[address] [address] Aug, Allergic rhinitis, unspecifi ed allergic rhinitis trigger, unspecified rhinitis seasonality J30.9 ; Low back pain M54.5 and Other chronic pain G89.29 [facility] [address] [place] [address] Jul, [facility] [address] [address] Jul, Low back pain M54.5 and Othe r chronic pain G89.29 [facility] [address] [address] Jul, Acute maxillary sinusitis, r ecurrence not specified J01.00 [facility] [address] [place] [address] Jun, Cellulitis of left lower ext remity L03.116 [facility] [address] [address] Apr, Wrist pain, left M25.532 [facility] [address] [address] March, Low back pain M54.5 ; Fever, unspecified R50.9 and Strep pharyngitis J02.0 [facility] [place] [id number] [address] March, Hordeolum externum of left u pper eyelid H00.014 and Acute follicular conjunctivitis of left eye H10.012 [place] [address] [address] Jan, Folliculitis L73.[address] [facility] [place] [address] [address] Jan, Screen for sexually transmit yayo diseases Z11.3 [place] [address] [address] Nov, [place] [address] [address] Nov, Gen idiopathic epilepsy, not intractable, 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 [place] [address] [address] Nov, Malaise R53.81 ; Upper respi ratory infection J06.9 and Pharyngitis J02.9 [place] [address] [address] Nov, Acute pharyngitis, unspecifi ed J02.9 ; Acute upper respiratory infection, unspecified J06.9 ; Other viral agents as the cause of diseases classified elsewhere B97.89 and Allergic rhinitis J30.9 [place] [address] [address] 04 Oct, 2015 Testicular pain N50.8 [place] [address] [address] 15 Jul, 2015 Sinusitis 473.9 [place] [address] [address] 12 Apr, 2015 Back pain 724.5 [place] [address] [address] Apr, [facility] [address] [id number] [address] [place] [address], [place] [address] Feb, [facility] [address] [id number] [address] [place] [address] Feb, [facility] [address] [id number] [address] [place] [address], [place] [address] Jan, [facility] [address] [id number] [address] [place] [address] Nov, [facility] [address] [id number] [address] [place] [address], [place] [address] Nov, [facility] [address] [id number] [address] [place] [address] Nov, [facility] [address] [id number] [address] [place] [address] Nov, [facility] [address] [id number] [address] [place] [address] Oct, [facility] [address] [id number] [address] [place] [address] Oct, [facility] [address] [id number] [address] [place] [address] Aug, [facility] [address] [id number] [address] [place] [address] Aug, [facility] [address] [id number] [address] [place] [address] Aug, [facility] [address] [id number] [address] [place] [address] Aug, [facility] [address] [id number] [address] [place] [address] Aug, [facility] [address] [id number] [address] [place] [address], [place] [address] Aug, [facility] [address] [id number] [facility] [place] [address] Aug, [facility] [address] [id number] [address] [place] [address], [place] [address] Aug, [facility] [address] [id number] [address] [place] [address], [place] [address] Jun, [facility] [address] [id number] [address] [place] [address], [place] [address] Jun, [facility] [address] [id number] [address] [place] [address], [place] [address] Jun, [facility] [address] [id number] [address] [place] [address], [place] [address] Jun, [facility] [address] [id number] [address] [place] [address], [place] [address] Jun, [facility] [address] [id number] [address] [place] [address], [place] [address] Jun, [facility] [address] [id number] [address] [place] [address], [place] [address] Jun, [facility] [address] [id number] [address] [place] [address], [place] [address] Jun, [facility] [address] [id number] [address] [place] [address], [place] [address] Jun, [facility] [address] [id number] [address] [place] [address], [place] [address] Jun, [facility] [address] [id number] [address] [place] [address], [place] [address] May, [facility] [address] [id number] [address] [place] [address], [place] [address] May, [facility] [address] [id number] [address] [place] [address], [place] [address] March, [facility] [address] [id number] [address] [place] [address], [place] [address] March, [facility] [address] [id number] [address] [place] [address], [place] [address] March, [facility] [address] [id number] [address] [place] [address], [place] [address] March, [facility] [address] [id number] [address] [place] [address], [place] [address] Feb, [facility] [address] [id number] [address] [place] [address], [place] [address] Feb, [facility] [address] [id number] [address] [place] [address], [place] [address] Jan, [facility] [address] [id number] [address] [place] [address], [place] [address] Jan, [facility] [address] [id number] [address] [place] [address], [place] [address] Jan, [facility] [address] [id number] [address] [place] [address], [place] [address] Jan, [facility] [address] [id number] [address] [place] [address], [place] [address] Dec, [facility] [address] [id number] [address] [place] [address], [place] [address] Dec, [facility] [address] [id number] [address] [place] [address], [place] [address] Dec, [facility] [address] [id number] [address] [place] [address], [place] [address] Dec, [facility] [address] [id number] [address] [place] [address], [place] [address] Dec, [facility] [address] [id number] [address] [place] [address], [place] [address] Dec, [facility] [address] [id number] [address] [place] [address], [place] [address] Nov, [facility] [address] [id number] [address] [place] [address], [place] [address] Nov, [facility] [address] [id number] [address] [place] [address], [place] [address] Nov, [facility] [address] [id number] [address] [place] [address], [place] [address] Nov, [facility] [address] [id number] [address] [place] [address], [place] [address] Nov, [facility] [address] [id number] [address] [place] [address], [place] [address] Nov, [facility] [address] [id number] [address] [place] [address], [place] [address] Nov, [facility] [address] [id number] [address] [place] [address], [place] [address] Nov, [facility] [address] [id number] [address] [place] [address], [place] [address] Nov, [facility] [address] [id number] [address] [place] [address], [place] [address] Nov, [facility] [address] [id number] [address] [place] [address], [place] [address] Nov, [facility] [address] [id number] [address] [place] [address], [place] [address] Nov, [facility] [address] [id number] [address] [place] [address], [place] [address] Oct, [facility] [address] [id number] [address] [place] [address], [place] [address] Oct, [facility] [address] [id number] [address] [place] [address], [place] [address] Oct, [facility] [address] [id number] [address] [place] [address], [place] [address] Oct, [facility] [address] [id number] [address] [place] [address], [place] [address] Sep, [facility] [address] [id number] [address] [place] [address], [place] [address] Sep, [facility] [address] [id number] [address] [place] [address], [place] [address] Sep, [facility] [address] [id number] [address] [place] [address], [place] [address] Sep, [facility] [address] [id number] [address] [place] [address], [place] [address] Sep, [facility] [address] [id number] [address] [place] [address], [place] [address] Sep, [facility] [address] [id number] [address] [place] [address], [place] [address] Sep, [facility] [address] [id number] [address] [place] [address], [place] [address] Sep, [facility] [address] [id number] [address] [place] [address], [place] [address] 30 Jul, 2013 [facility] [address] [id number] [address] [place] [address], [place] [address] Jul, [facility] [address] [id number] [address] [place] [address] May, [facility] [address] [id number] [address] [place] [address] Apr, [facility] [address] [id number] [address] [place] [address] 24 Apr, 2013 [facility] [address] [id number] [address] [place] [address], [place] [address] Apr, [facility] [address] [id number] [address] [place] [address] Apr, [facility] [address] [id number] [address] [place] [address] Apr, [facility] [address] [id number] [address] [place] [address] Apr, [facility] [address] [id number] [address] [place] [address], [place] [address] Apr, [facility] [address] [id number] [address] [place] [address], [place] [address] March, [facility] [address] [id number] [address] [place] [address], [place] [address] March, [facility] [address] [id number] [address] [place] [address], [place] [address] Jan, [facility] [address] [id number] [address] [place] [address], [place] [address] Dec, [facility] [address] [id number] [address] [place] [address], [place] [address] Nov, [facility] [address] [id number] [address] [place] [address], [place] [address] Nov, [facility] [address] [id number] [address] [place] [address], [place] [address] Oct, [facility] [address] [id number] [address] [place] [address], [place] [address] Oct, [facility] [address] [id number] [address] [place] [address], [place] [address] Oct, [facility] [address] [id number] [address] [place] [address], [place] [address] Oct, [facility] [address] [id number] [address] [place] [address], [place] [address] Oct, [facility] [address] [id number] [address] [place] [address], [place] [address] Oct, [facility] [address] [id number] [address] [place] [address], [place] [address] Sep, [facility] [address] [id number] [address] [place] [address], [place] [address] Sep, [facility] [address] [id number] [address] [place] [address], [place] [address] Sep, [facility] [address] [id number] [address] [place] [address], [place] [address] Sep, [facility] [address] [id number] [address] [place] [address], [place] [address] Sep, [facility] [address] [id number] [address] [place] [address], [place] [address] Sep, [facility] [address] [id number] [address] [place] [address], [place] [address] Sep, [facility] [address] [id number] [address] [place] [address], [place] [address] Sep, [facility] [address] [id number] [address] [place] [address], [place] [address] Sep, [facility] [address] [id number] [address] [place] [address], [place] [address] Sep, [facility] [address] [id number] [address] [place] [address], [place] [address] Sep, [facility] [address] [id number] [address] [place] [address], [place] [address] Sep, [facility] [address] [id number] [address] [place] [address], [place] [address] Aug, [facility] [address] [id number] [address] [place] [address], [place] [address] Aug, [facility] [address] [id number] [address] [place] [address], [place] [address] Aug, [facility] [address] [id number] [address] [place] [address], [place] [address] Aug, [facility] [address] [id number] [address] [place] [address], [place] [address] Aug, [facility] [address] [id number] [address] [place] [address], [place] [address] Aug, [facility] [address] [id number] [address] [place] [address], [place] [address] Aug, [facility] [address] [id number] [address] [place] [address], [place] [address] Aug, [facility] [address] [id number] [address] [place] [address], [place] [address] Aug, [facility] [address] [id number] [address] [place] [address], [place] [address] Aug, [facility] [address] [id number] [address] [place] [address], [place] [address] Jul, [facility] [address] [id number] [address] [place] [address], [place] [address] Jul, [facility] [address] [id number] [address] [place] [address], [place] [address] Jun, [facility] [address] [id number] [address] [place] [address], [place] [address] Jun, [facility] [address] [id number] [address] [place] [address], [place] [address] Jun, [facility] [address] [id number] [address] [place] [address], [place] [address] May, [facility] [address] [id number] [address] [place] [address], [place] [address] May, [facility] [address] [id number] [place] [id number] May, [facility] [address] [id number] [address] [place] [address], [place] [address] May, [facility] [address] [id number] [address] [place] [address], [place] [address] Apr, [facility] [address] [id number] [address] [place] [address], [place] [address] Apr, [facility] [address] [id number] [address] [place] [address], [place] [address] Apr, [facility] [address] [id number] [address] [place] [address], [place] [address] Apr, [facility] [address] [id number] [address] [place] [address], [place] [address] March, [facility] [address] [id number] [address] [place] [address], [place] [address] Jan, [facility] [address] [id number] [address] [place] [address], [place] [address] Dec, [facility] [address] [id number] [address] [place] [address], [place] [address] Dec, [facility] [address] [id number] [address] [place] [address], [place] [address] Oct, [facility] [address] [id number] [address] [place] [address], [place] [address] Oct, [facility] [address] [id number] [address] [place] [address], [place] [address] Oct, [facility] [address] [id number] [address] [place] [address], [place] [address] Oct, [facility] [address] [id number] [address] [place] [address], [place] [address] 15 Oct, 2011 [facility] [address] [id number] [address] [place] [address], [place] [address] 15 Oct, 2011 [facility] [address] [id number] [address] [place] [address], [place] [address] 13 Oct, 2011 [facility] [address] [id number] [address] [place] [address], [place] [address] 05 Oct, 2011 [facility] [address] [id number] [address] [place] [address], [place] [address] Sep, [facility] [address] [id number] [address] [place] [address], [place] [address] Sep, [facility] [address] [facility] [id number] [address] [place] [id number] Sep, [facility] [address] [facility] [id number] [address] [place] [phone] Sep, [facility] [address] [facility] [id number] [address] [place] [id number] Aug, [facility] [address] [facility] [id number] [address] [place] [id number] Jul, IMMUNIZATIONS No Known Immunizations SOCIAL HISTORY Never Assessed REASON FOR VISIT Congestion, Coughing up thick yellow mucous, Shortness of breath, wheezing, Chil ls, Fever, Body aches. Symptoms started yesterday. Has taken over the counter [place] cold and flu medication. PLAN OF CARE Activity Details Follow Up if not improving with PCP or reg follow up Reason: VITAL SIGNS Height 74 in 2019-02-01 Weight 311 lbs 2019-02-01 Temperature 98.3 degrees Fahrenheit 2019-02-01 Heart Rate 107 bpm 2019-02-01 Respiratory Rate 20 2019-02-01 Oximetry on room air:98 % 2019-02-01 BMI 39.93 kg/m2 2019-02-01 Blood pressure systolic 123 mmHg 2019-02-01 Blood pressure diastolic 81 mmHg 2019-02-01 MEDICATIONS Medication Instructions Dosage Frequency Start Date End Date Duration S tatus ProAir HFA 108 (90 Base) MCG/ACT Inhalation every 6 hrs 2 puffs as needed 6h March, Active Depakote ER 500 mg Orally 2 times a day 2 tablets 12h Active Pantoprazole Sodium 20 mg Orally Once a day 1 tablet 24h 30 Active Nortriptyline HCl 25 MG Orally Once a day 1 capsule 24h Aug, 30 day(s) Active PredniSONE 20 MG Orally Once a day 2 tablet 24h Jan, 5 days Active Azithromycin 500 MG Orally Once a day 1 tablet 24h Jan, 3 days Active Flonase 50 MCG/ACT Nasally Once a day 1 spray in each nostril 24h 30 Active RESULTS Name Result Date Reference Range INFLUENZA A & B (IN HOUSE) INFLUENZA A negative INFLUENZA B negative Control + Lot # [id number] Exp date 2021-09-07 PROCEDURES Procedure Date Ordered Result Body Site INFLUENZA ASSAY W/OPTIC February 01, 2019 INSTRUCTIONS MEDICATIONS ADMINISTERED No Known Medications MEDICAL (GENERAL) HISTORY Type Description Date Medical History seizures Medical History allergic rhinitis Medical History mood disorder Medical History back pain Surgical History tonsillectomy Hospitalization History Seizure activity - [facility]. 07/2018
--- OUTSIDE RECORDS SUMMARY | 2020-02-03 17:06 | XMS REPORT ---
Author Author Derek KEITH Organization [facility] Address [address] [place] [address] Care Team Providers Care Is Support Analyst Name Role Phone ARMANI KEITH Unavailable PROBLEMS Type Condition ICD9-CM Code QIH90-VR Code Onset Dates Condition S tatus SNOMED Code Problem Bladder spasms N32.89 Active 14607 7006 Problem Migraine with aura and without status migrainosu s, not intractable G43.109 Active 8996655 Problem Migraine with aura and without status migrainosu s, not intractable G43.109 Active 8292173 Problem Seasonal allergic rhinitis due to other allergic trigger J30.89 Active 082287842 Problem Anxiety F41.9 Active 47989265 Problem Mood disorder F39 Active 735781 05 Problem 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 94005206 ALLERGIES No Information ENCOUNTERS Encounter Location Date Diagnosis [facility] [address] [address] May, Nonintractable absence epile psy without status epilepticus G40.A09 and Migraine with aura and without status migrainosus, not intractable G43.109 [facility] [address] [facility] [id number] [address] [place] [address] Apr, [facility] [address] [facility] [id number] [address] [place] [address] March, [facility] [address] [facility] [id number] [address] [place] [address] Feb, Acute midline low back pain without sciatica M54.5 [facility] [address] [facility] [id number] [address] [place] [address] Feb, Seizures R56.9 [facility] [address] [place] [id number] [address] [place] [address] Jan, [facility] [address] [place] [id number] [place] [address] 14 Jan, 2019 Bronchitis J40 and Pleurisy R09.1 [facility] [address] [facility] [id number] [address] [place] [address] 12 Jan, 2019 Acute bronchitis, unspecifie d organism J20.9 and Fever R50.9 [facility] [address] [address] Jan, [facility] [address] [address] Jan, Seizures R56.9 [facility] [address] [place] [id number] [place] [address] Nov, [facility] [address] [address] Nov, [facility] [address] [address] Nov, Nonintractable absence epile psy without status epilepticus G40.A09 and Palpitations R00.2 [place] [address] [address] Nov, [facility] [address] [address] Oct, [facility] [address] [address] Sep, [facility] [address] [address] Aug, Seizures R56.9 and Mood diso rder F39 [facility] [address] [place] [id number] [address] [place] [address] 18 Jul, 2018 Dysuria R30.0 and Bladder sp asms N32.89 [place] [address] [place] [address] Jul, [facility] [address] [id number] [address] [place] [address] March, Elevated liver enzymes R74.8 and Abnormal CBC R79.89 [facility] [address] [facility] [id number] [address] [place] [address] March, Encounter for immunization Z 23 [facility] [address] [facility] [id number] [address] [place] [address] March, [facility] [address] [facility] [id number] [address] [place] [address] March, [facility] [address] [facility] [id number] [address] [place] [address] March, Elevated liver enzymes R74.8 and Abnormal CBC R79.89 [facility] [address] [facility] [id number] [address] [place] [address] March, Anxiety F41.9 ; Bronchitis J 40 and Seasonal allergic rhinitis due to other allergic trigger J30.89 [facility] [address] [facility] [id number] [address] [place] [address] March, [facility] [address] [facility] [id number] [address] [place] [address] Feb, [facility] [address] [facility] [id number] [address] [place] [address] Feb, Pharyngitis due to other org anism J02.8 [facility] [address] [facility] [id number] [address] [place] [address] Feb, Pharyngitis due to other org anism J02.8 [facility] [address] [facility] [id number] [address] [place] [address] Feb, Sore throat J02.9 ; Fatigue, unspecified type R53.83 and Strep pharyngitis J02.0 [facility] [address] [facility] [id number] [address] [place] [address] Feb, Acute nasopharyngitis J00 [facility] [address] [address] Feb, Lower abdominal pain R10.30 [facility] [place] [address] [address] Feb, Bladder spasms N32.89 and Ur inary frequency R35.0 [facility] [address] [address] Jan, Strep throat J02.0 [facility] [place] [address] [address] Dec, Seasonal allergic rhinitis, unspecified trigger J30.2 [place] [address] [address] Nov, Acute suppurative otitis med ia of both ears without spontaneous rupture of tympanic membranes, recurrence not specified H66.003 [facility] [place] [address] [address] Nov, Acute suppurative otitis med ia of both ears without spontaneous rupture of tympanic membranes, recurrence not specified H66.003 [facility] [place] [address] [address] Nov, Acute suppurative otitis med ia of both ears without spontaneous rupture of tympanic membranes, recurrence not specified H66.003 [place] [address] [place] [id number] [address] [place] [address] Oct, [place] [address] [address] Jul, Seizures R56.9 [place] [address] [address] 14 Jul, 2017 Seizures R56.9 ; Other chron ic pain G89.29 ; Pain in left ankle and joints of left foot M25.572 and Allergic rhinitis, unspecified allergic rhinitis trigger, unspecified rhinitis seasonality J30.9 [facility] [address] [address] 07 Jul, 2017 Acute seasonal allergic rhin itis due to other allergen J30.89 [facility] N [place] [id number] [place] [address] Jun, Left foot pain M79.672 and L eft lateral ankle pain M25.572 [facility] [address] [address] Aug, Allergic rhinitis, unspecifi ed allergic rhinitis trigger, unspecified rhinitis seasonality J30.9 ; Low back pain M54.5 and Other chronic pain G89.29 [facility] [address] [place] [address] Jul, [facility] [address] [place] [address] Jul, Low back pain M54.5 and Othe r chronic pain G89.29 [facility] [address] [place] [address] Jul, Acute maxillary sinusitis, r ecurrence not specified J01.00 [facility] [address] [place] [address] Jun, Cellulitis of left lower ext remity L03.116 [facility] [address] [place] [address] Apr, Wrist pain, left M25.532 [facility] [address] [place] [address] March, Low back pain M54.5 ; Fever, unspecified R50.9 and Strep pharyngitis J02.0 [facility] [address] [place] [address] March, Hordeolum externum of left u pper eyelid H00.014 and Acute follicular conjunctivitis of left eye H10.012 [place] [address] [address] Jan, Folliculitis L73.9 [facility] [place] [address] [address] Jan, Screen for sexually transmit yayo diseases Z11.3 [place] [address] [address] Nov, [place] [address] [address] Nov, Gen idiopathic epilepsy, not intractable, 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 [place] [address] [address] Nov, Malaise R53.81 ; Upper respi ratory infection J06.9 and Pharyngitis J02.9 [place] [address] [address] Nov, Acute pharyngitis, unspecifi ed J02.9 ; Acute upper respiratory infection, unspecified J06.9 ; Other viral agents as the cause of diseases classified elsewhere B97.89 and Allergic rhinitis J30.9 [place] [address] [address] Oct, Testicular pain N50.8 [place] [address] [address] 15 Jul, 2015 Sinusitis 473.9 [place] [address] [address] 12 Apr, 2015 Back pain 724.5 [place] [address] [address] 11 Apr, 2015 [place] [address] [address] 14 Feb, 2015 [facility] [address] [id number] [address] [place] [address], [place] [address] Feb, [facility] [address] [id number] [address] [place] [address], [place] [address] Jan, [facility] [address] [id number] [address] [place] [address], [place] [address] Nov, [facility] [address] [id number] [address] [place] [address], [place] [address] Nov, [facility] [address] [id number] [address] [place] [address], [place] [address] Nov, [facility] [address] [id number] [address] [place] [address], [place] [address] Nov, [facility] [address] [id number] [address] [place] [address], [place] [address] Oct, [facility] [address] [id number] [address] [place] [address], [place] [address] Oct, [facility] [address] [id number] [address] [place] [address], [place] [address] Aug, [facility] [address] [id number] [address] [place] [address] Aug, [facility] [address] [id number] [address] [place] [address] Aug, [facility] [address] [id number] [address] [place] [address] Aug, [facility] [address] [id number] [address] [place] [address], [place] [address] Aug, [facility] [address] [id number] [address] [place] [address], [place] [address] Aug, [facility] [address] [id number] [address] [place] [address] Aug, [facility] [address] [id number] [address] [place] [address] Aug, [facility] [address] [id number] [address] [place] [address], [place] [address] Jun, [facility] [address] [id number] [address] [place] [address], [place] [address] Jun, [facility] [address] [id number] [address] [place] [address], [place] [address] Jun, [facility] [address] [id number] [address] [place] [address], [place] [address] Jun, [facility] [address] [id number] [address] [place] [address], [place] [address] Jun, [facility] [address] [id number] [address] [place] [address], [place] [address] Jun, [facility] [address] [id number] [address] [place] [address], [place] [address] Jun, [facility] [address] [id number] [address] [place] [address], [place] [address] Jun, [facility] [address] [id number] [address] [place] [address], [place] [address] Jun, [facility] [address] [id number] [address] [place] [address], [place] [address] Jun, [facility] [address] [id number] [address] [place] [address], [place] [address] May, [facility] [address] [id number] [address] [place] [address], [place] [address] May, [facility] [address] [id number] [address] [place] [address], [place] [address] March, [facility] [place] [facility] [address] [id number] [address] [place] [address], [place] [address] March, [facility] [address] [id number] [address] [place] [address], [place] [address] March, [facility] [place] [facility] [address] [id number] [address] [place] [address], [place] [address] March, [facility] [address] [id number] [address] [place] [address], [place] [address] Feb, [facility] [place] [facility] [address] [id number] [address] [place] [address], [place] [address] Feb, [facility] [address] [id number] [address] [place] [address], [place] [address] Jan, [facility] [address] [id number] [address] [place] [address], [place] [address] Jan, [facility] [address] [id number] [address] [place] [address], [place] [address] Jan, [facility] [address] [id number] [address] [place] [address], [place] [address] Jan, [facility] [address] [id number] [address] [place] [address], [place] [address] Dec, [facility] [address] [id number] [address] [place] [address], [place] [address] Dec, [facility] [address] [id number] [address] [place] [address], [place] [address] Dec, [facility] [address] [id number] [address] [place] [address], [place] [address] Dec, [facility] [address] [id number] [address] [place] [address], [place] [address] Dec, [facility] [address] [id number] [address] [place] [address], [place] [address] Dec, [facility] [place] [facility] [address] [id number] [address] [place] [address], [place] [address] Nov, [facility] [place] [facility] [address] [id number] [address] [place] [address], [place] [address] Nov, [facility] [place] [facility] [address] [id number] [address] [place] [address], [place] [address] Nov, [facility] [address] [id number] [address] [place] [address], [place] [address] Nov, [facility] [address] [id number] [address] [place] [address], [place] [address] Nov, [facility] [address] [id number] [address] [place] [address], [place] [address] Nov, [facility] [address] [id number] [address] [place] [address], [place] [address] Nov, [facility] [address] [id number] [address] [place] [address], [place] [address] Nov, [facility] [address] [id number] [address] [place] [address], [place] [address] Nov, [facility] [address] [id number] [address] [place] [address], [place] [address] Nov, [facility] [address] [id number] [address] [place] [address], [place] [address] Nov, [facility] [address] [id number] [address] [place] [address], [place] [address] Nov, [facility] [address] [id number] [address] [place] [address], [place] [address] Oct, [facility] [address] [id number] [address] [place] [address], [place] [address] Oct, [facility] [address] [id number] [address] [place] [address], [place] [address] Oct, [facility] [address] [id number] [address] [place] [address], [place] [address] Oct, [facility] [address] [id number] [address] [place] [address], [place] [address] Sep, [facility] [address] [id number] [address] [place] [address], [place] [address] Sep, [facility] [address] [id number] [address] [place] [address], [place] [address] Sep, [facility] [address] [id number] [address] [place] [address], [place] [address] Sep, [facility] [address] [id number] [address] [place] [address], [place] [address] Sep, [facility] [address] [id number] [address] [place] [address], [place] [address] Sep, [facility] [address] [id number] [address] [place] [address], [place] [address] Sep, [facility] [address] [id number] [address] [place] [address], [place] [address] 18 Sep, 2013 [facility] [address] [id number] [address] [place] [address], [place] [address] 30 Jul, 2013 [facility] [address] [id number] [address] [place] [address], [place] [address] 26 Jul, 2013 [facility] [address] [id number] [address] [place] [address], [place] [address] 17 May, 2013 [facility] [address] [id number] [address] [place] [address], [place] [address] 26 Apr, 2013 [facility] [address] [id number] [address] [place] [address], [place] [address] 24 Apr, 2013 [facility] [address] [id number] [address] [place] [address], [place] [address] 20 Apr, 2013 [facility] [address] [id number] [address] [place] [address], [place] [address] Apr, [facility] [address] [id number] [address] [place] [address], [place] [address] 13 Apr, 2013 [facility] [address] [id number] [address] [place] [address], [place] [address] 10 Apr, 2013 [facility] [address] [id number] [address] [place] [address], [place] [address] Apr, [facility] [address] [id number] [address] [place] [address], [place] [address] March, [facility] [address] [id number] [address] [place] [address], [place] [address] March, [facility] [address] [id number] [address] [place] [address], [place] [address] Jan, [facility] [address] [id number] [address] [place] [address], [place] [address] Dec, [facility] [address] [id number] [address] [place] [address], [place] [address] Nov, [facility] [address] [id number] [address] [place] [address], [place] [address] Nov, [facility] [address] [id number] [address] [place] [address], [place] [address] Oct, [facility] [address] [id number] [address] [place] [address], [place] [address] Oct, [facility] [address] [id number] [address] [place] [address], [place] [address] Oct, [facility] [address] [id number] [address] [place] [address], [place] [id number] Oct, [facility] [address] [id number] [address] [place] [address], [place] [id number] Oct, [facility] [address] [id number] [address] [place] [address], [place] [address] Oct, [facility] [address] [id number] [address] [place] [address], [place] [address] Sep, [facility] [address] [id number] [address] [place] [address], [place] [id number] Sep, [facility] [address] [id number] [address] [place] [address], [place] [address] Sep, [facility] [address] [id number] [address] [place] [address], [place] [address] Sep, [facility] [address] [id number] [address] [place] [address], [place] [address] Sep, [facility] [address] [id number] [address] [place] [address], [place] [address] Sep, [facility] [address] [id number] [address] [place] [address], [place] [address] Sep, [facility] [address] [id number] [address] [place] [address], [place] [address] Sep, [facility] [address] [id number] [address] [place] [address], [place] [address] Sep, [facility] [address] [id number] [address] [place] [address], [place] [address] Sep, [facility] [address] [id number] [address] [place] [address], [place] [address] Sep, [facility] [address] [id number] [address] [place] [address], [place] [address] Sep, [facility] [address] [id number] [address] [place] [address], [place] [address] Aug, [facility] [address] [id number] [address] [place] [id number] Aug, [facility] [address] [id number] [address] [place] [address], [place] [address] Aug, [facility] [address] [id number] [address] [place] [id number] Aug, [facility] [address] [id number] [address] [place] [id number] Aug, [facility] [address] [id number] [address] [place] [id number] Aug, [facility] [address] [id number] [address] [place] [id number] Aug, [facility] [address] [id number] [address] [place] [address], [place] [address] Aug, [facility] [address] [id number] [address] [place] [address], [place] [address] Aug, [facility] [address] [id number] [address] [place] [address], [place] [address] Aug, [facility] [address] [id number] [address] [place] [address], [place] [id number] 24 Jul, 2012 [facility] [address] [id number] [address] [place] [address], [place] [address] Jul, [facility] [address] [id number] [address] [place] [address], [place] [address] Jun, [facility] [address] [id number] [address] [place] [address], [place] [address] Jun, [facility] [address] [id number] [address] [place] [address], [place] [address] Jun, [facility] [address] [id number] [address] [place] [address], [place] [address] May, [facility] [address] [id number] [address] [place] [address], [place] [address] May, [facility] [address] [id number] [address] [place] [address], [place] [address] May, [facility] [address] [id number] [address] [place] [address], [place] [address] May, [facility] [address] [id number] [address] [place] [address], [place] [address] Apr, [facility] [address] [id number] [address] [place] [address], [place] [id number] Apr, [facility] [address] [id number] [address] [place] [address], [place] [id number] Apr, [facility] [address] [id number] [address] [place] [address], [place] [id number] Apr, [facility] [address] [id number] [address] [place] [address], [place] [id number] March, [facility] [address] [id number] [address] [place] [address], [place] [id number] Jan, [facility] [address] [id number] [address] [place] [address], [place] [id number] Dec, [facility] [address] [id number] [address] [place] [address], [place] [id number] Dec, [facility] [address] [id number] [address] [place] [address], [place] [id number] Oct, [facility] [address] [id number] [address] [place] [address], [place] [id number] Oct, [facility] [address] [id number] [address] [place] [address], [place] [id number] Oct, [facility] [address] [id number] [address] [place] [address], [place] [id number] Oct, [facility] [address] [id number] [address] [place] [address], [place] [id number] 15 Oct, 2011 [facility] [address] [id number] [address] [place] [address], [place] [id number] Oct, [facility] [address] [id number] [address] [place] [address], [place] [address] Oct, [facility] [address] [id number] [address] [place] [address], [place] [id number] 05 Oct, 2011 [facility] [address] [id number] [address] [place] [address], [place] [id number] Sep, [facility] [address] [id number] [address] [place] [address], [place] [id number] 28 Sep, 2011 [facility] [address] [id number] [address] [place] [address], [place] [id number] 15 Sep, 2011 [facility] [address] [id number] [address] [place] [id number] 15 Sep, 2011 [facility] [address] [facility] [id number] [address] [place] [id number] 11 Aug, 2011 [facility] [address] [facility] [id number] [address] [place] [id number] 15 Jul, 2011 IMMUNIZATIONS No Known Immunizations [...] History tonsillectomy Hospitalization History Seizure activity - [facility]. 07/2018
--- OUTSIDE RECORDS SUMMARY | 2020-02-03 17:06 | XMS REPORT ---
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 47532142 Problem Bladder spasms N32.89 Active 86912 7006 Problem Anxiety F41.9 Active 61297339 Problem Seasonal allergic rhinitis due to other allergic trigger J30.89 Active 732442572 ALLERGIES Substance Reaction Event Type Date Status Aspirin Unknown Drug Allergy Feb, Active Cephilasporians Unknown Non Drug Allergy Feb, Active ENCOUNTERS Encounter Location Date Diagnosis [facility] [address] [id number] [address] [place] [address] Apr, [facility] [address] [id number] [address] [place] [address] March, [facility] [address] [id number] [address] [place] [address] Feb, Acute midline low back pain without sciatica M54.5 [facility] [address] [id number] [address] [place] [address] Feb, Seizures R56.9 [facility] [address] [facility] [id number] [address] [place] [address] Jan, [facility] [address] [id number] [address] [place] [address] Jan, Bronchitis J40 and Pleurisy R09.1 [facility] [address] [facility] [id number] [address] [place] [address] Jan, Acute bronchitis, unspecifie d organism J20.9 and Fever R50.9 [facility] [address] [facility] [id number] [address] [place] [address] Jan, [facility] [id number] [place] [phone] Jan, Seizures R56.9 [facility] [address] [id number] [address] [place] [address] Nov, [facility] [id number] [place] [phone] Nov, [facility] [address] [id number] [address] [place] [address] Nov, Nonintractable absence epile psy without status epilepticus G40.A09 and Palpitations R00.2 [facility] [address] [id number] [address] [place] [address] Nov, [facility] [id number] [place] [address] Oct, [facility] [address] [id number] [address] [place] [address] Sep, [facility] [id number] [place] [address] Aug, Seizures R56.9 and Mood diso rder F39 [facility] [address] [id number] [address] [place] [address] Jul, Dysuria R30.0 and Bladder sp asms N32.89 [facility] [address] [id number] [address] [place] [address] Jul, [facility] [address] [address] March, Elevated liver enzymes R74.8 and Abnormal CBC R79.89 [facility] [address] [id number] [address] [place] [address] March, Encounter for immunization Z 23 [facility] [address] [id number] [address] [place] [address] March, [facility] [address] [address] March, [facility] [id number] [place] [address] March, Elevated liver enzymes R74.8 and Abnormal CBC R79.89 [place] [address] [address] March, Anxiety F41.9 ; Bronchitis J 40 and Seasonal allergic rhinitis due to other allergic trigger J30.89 [place] [address] [address] March, [facility] [id number] [place] [address] Feb, [facility] [address] [address] Feb, Pharyngitis due to other org anism J02.8 [facility] [address] [id number] [address] [place] [address] Feb, Pharyngitis due to other org anism J02.8 [facility] [address] [id number] [address] [place] [address] Feb, Sore throat J02.9 ; Fatigue, unspecified type R53.83 and Strep pharyngitis J02.0 [facility] [address] [id number] [address] [place] [address] Feb, Acute nasopharyngitis J00 [facility] [address] [id number] [address] [place] [address] Feb, Lower abdominal pain R10.30 [facility] [address] [facility] [id number] [address] [place] [address] Feb, Bladder spasms N32.89 and Ur inary frequency R35.0 [facility] [place] [id number] [place] [address] Jan, Strep throat J02.0 [facility] [place] [id number] [place] [address] Dec, Seasonal allergic rhinitis, unspecified trigger J30.2 [place] [address] [address] Nov, Acute suppurative otitis med ia of both ears without spontaneous rupture of tympanic membranes, recurrence not specified H66.003 [facility] [place] [address] [address] Nov, Acute suppurative otitis med ia of both ears without spontaneous rupture of tympanic membranes, recurrence not specified H66.003 [facility] [place] [address] [address] Nov, Acute suppurative otitis med ia of both ears without spontaneous rupture of tympanic membranes, recurrence not specified H66.003 [place] [address] [address] Oct, [place] [address] [address] 21 Jul, 2017 Seizures R56.9 [place] [address] [address] 14 Jul, 2017 Seizures R56.9 ; Other chron ic pain G89.29 ; Pain in left ankle and joints of left foot M25.572 and Allergic rhinitis, unspecified allergic rhinitis trigger, unspecified rhinitis seasonality J30.9 [facility] [place] [address] [address] 07 Jul, 2017 Acute seasonal allergic rhin itis due to other allergen J30.89 [facility] [place] [id number] [place] [address] Jun, Left foot pain M79.672 and L eft lateral ankle pain M25.572 [place] [address] [address] Aug, Allergic rhinitis, unspecifi ed allergic rhinitis trigger, unspecified rhinitis seasonality J30.9 ; Low back pain M54.5 and Other chronic pain G89.29 [facility] [address] [address] Jul, [facility] [address] [address] Jul, Low back pain M54.5 and Othe r chronic pain G89.29 [facility] [address] [place] [address] Jul, Acute maxillary sinusitis, r ecurrence not specified J01.00 [facility] [address] [address] Jun, Cellulitis of left lower ext remity L03.116 [facility] [place] [address] [address] Apr, Wrist pain, left M25.532 [facility] [place] [address] [address] March, Low back pain M54.5 ; Fever, unspecified R50.9 and Strep pharyngitis J02.0 [facility] [place] [address] [address] March, Hordeolum externum of left u pper eyelid H00.014 and Acute follicular conjunctivitis of left eye H10.012 [place] [address] [address] Jan, Folliculitis L73.9 [facility] [place] [address] [address] Jan, Screen for sexually transmit yayo diseases Z11.3 [place] [address] [id number] [address] [place] [address] Nov, [facility] [address] [facility] [id number] [address] [place] [address] Nov, Gen idiopathic epilepsy, not intractable, 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 [facility] [address] [facility] [id number] [address] [place] [address] Nov, Malaise R53.81 ; Upper respi ratory infection J06.9 and Pharyngitis J02.9 [facility] [address] [facility] [id number] [address] [place] [address] Nov, Acute pharyngitis, unspecifi ed J02.9 ; Acute upper respiratory infection, unspecified J06.9 ; Other viral agents as the cause of diseases classified elsewhere B97.89 and Allergic rhinitis J30.9 [facility] [address] [id number] [address] [place] [address] Oct, Testicular pain N50.8 [facility] [address] [facility] [id number] [address] [place] [address] 15 Jul, 2015 Sinusitis 473.9 [facility] [address] [facility] [id number] [address] [place] [address] 12 Apr, 2015 Back pain 724.5 [facility] [address] [facility] [id number] [address] [place] [address] Apr, [facility] [address] [facility] [id number] [address] [place] [address] 14 Feb, 2015 [facility] [address] [facility] [id number] [address] [place] [address] Feb, [facility] [address] [id number] [address] [place] [address] 04 Jan, 2015 [facility] [address] [id number] [address] [place] [address] Nov, [facility] [address] [id number] [address] [place] [address], [place] [address] Nov, [facility] [address] [id number] [address] [place] [address], [place] [address] Nov, [facility] [address] [id number] [address] [place] [address], [place] [address] Nov, [facility] [address] [id number] [address] [place] [address], [place] [address] Oct, [facility] [address] [id number] [address] [place] [address], [place] [address] Oct, [facility] [address] [id number] [address] [place] [address], [place] [address] Aug, [facility] [address] [id number] [address] [place] [address], [place] [address] Aug, [facility] [address] [id number] [address] [place] [address], [place] [address] Aug, [facility] [address] [id number] [address] [place] [address], [place] [address] Aug, [facility] [address] [id number] [address] [place] [address], [place] [address] Aug, [facility] [address] [id number] [address] [place] [address], [place] [address] Aug, [facility] [address] [id number] [address] [place] [address], [place] [address] Aug, [facility] [address] [id number] [address] [place] [address], [place] [address] Aug, [facility] [address] [id number] [address] [place] [address], [place] [address] Jun, [facility] [address] [id number] [address] [place] [address], [place] [address] Jun, [facility] [address] [id number] [address] [place] [address], [place] [address] Jun, [facility] [address] [id number] [address] [place] [address], [place] [address] Jun, [facility] [address] [id number] [address] [place] [address], [place] [address] Jun, [facility] [address] [id number] [address] [place] [address], [place] [address] Jun, [facility] [address] [id number] [address] [place] [address], [place] [address] Jun, [facility] [address] [id number] [address] [place] [address], [place] [address] Jun, [facility] [address] [id number] [address] [place] [address], [place] [address] Jun, [facility] [address] [id number] [address] [place] [address], [place] [address] Jun, [facility] [address] [id number] [address] [place] [address], [place] [address] May, [facility] [address] [id number] [address] [place] [address], [place] [address] May, [facility] [address] [id number] [address] [place] [address], [place] [address] March, [facility] [address] [id number] [address] [place] [address], [place] [address] March, [facility] [address] [id number] [address] [place] [address], [place] [address] March, [facility] [address] [id number] [address] [place] [address], [place] [address] March, [facility] [address] [id number] [address] [place] [address], [place] [address] Feb, [facility] [address] [id number] [address] [place] [address], [place] [address] Feb, [facility] [address] [id number] [address] [place] [address], [place] [address] Jan, [facility] [address] [id number] [address] [place] [address], [place] [address] Jan, [facility] [address] [id number] [address] [place] [address], [place] [address] Jan, [facility] [address] [id number] [address] [place] [address], [place] [address] Jan, [facility] [address] [id number] [address] [place] [address], [place] [address] Dec, [facility] [address] [id number] [address] [place] [address], [place] [address] Dec, [facility] [address] [id number] [address] [place] [address], [place] [address] Dec, [facility] [address] [id number] [address] [place] [address], [place] [address] Dec, [facility] [address] [id number] [address] [place] [address], [place] [address] Dec, [facility] [address] [id number] [address] [place] [address], [place] [address] Dec, [facility] [address] [id number] [address] [place] [address], [place] [address] Nov, [facility] [address] [id number] [address] [place] [address], [place] [address] Nov, [facility] [address] [id number] [address] [place] [address], [place] [address] Nov, [facility] [address] [id number] [address] [place] [address], [place] [address] Nov, [facility] [address] [id number] [address] [place] [address], [place] [address] Nov, [facility] [address] [id number] [address] [place] [address], [place] [address] Nov, [facility] [address] [id number] [address] [place] [address], [place] [address] Nov, [facility] [address] [id number] [address] [place] [address], [place] [address] Nov, [facility] [address] [id number] [address] [place] [address], [place] [address] Nov, [facility] [address] [id number] [address] [place] [address], [place] [address] Nov, [facility] [address] [id number] [address] [place] [address], [place] [address] Nov, [facility] [address] [id number] [address] [place] [address], [place] [address] Nov, [facility] [address] [id number] [address] [place] [address], [place] [address] Oct, [facility] [address] [id number] [address] [place] [address], [place] [address] Oct, [facility] [address] [id number] [address] [place] [address], [place] [address] Oct, [facility] [address] [id number] [address] [place] [address], [place] [address] Oct, [facility] [address] [id number] [address] [place] [address], [place] [address] Sep, [facility] [address] [id number] [address] [place] [address], [place] [address] Sep, [facility] [address] [id number] [address] [place] [address], [place] [address] Sep, [facility] [address] [id number] [address] [place] [address], [place] [address] Sep, [facility] [address] [id number] [address] [place] [address], [place] [address] Sep, [facility] [address] [id number] [address] [place] [address], [place] [address] Sep, [facility] [address] [id number] [address] [place] [address], [place] [address] Sep, [facility] [address] [id number] [address] [place] [address], [place] [address] Sep, [facility] [address] [id number] [address] [place] [address], [place] [address] 30 Jul, 2013 [facility] [address] [id number] [address] [place] [address], [place] [address] Jul, [facility] [address] [id number] [address] [place] [address], [place] [address] May, [facility] [address] [id number] [address] [place] [address], [place] [address] Apr, [facility] [address] [id number] [address] [place] [address], [place] [address] Apr, [facility] [address] [id number] [address] [place] [address], [place] [address] Apr, [facility] [address] [id number] [address] [place] [address], [place] [address] Apr, [facility] [address] [id number] [address] [place] [address], [place] [address] Apr, [facility] [address] [id number] [address] [place] [address], [place] [address] Apr, [facility] [address] [id number] [address] [place] [address], [place] [address] Apr, [facility] [address] [id number] [address] [place] [address], [place] [address] March, [facility] [address] [id number] [address] [place] [address], [place] [address] March, [facility] [address] [id number] [address] [place] [address], [place] [address] Jan, [facility] [address] [id number] [address] [place] [address], [place] [address] 28 Dec, 2012 [facility] [address] [id number] [address] [place] [address], [place] [address] 17 Nov, 2012 [facility] [address] [id number] [address] [place] [address], [place] [address] Nov, [facility] [address] [id number] [address] [place] [address], [place] [address] Oct, [facility] [address] [id number] [address] [place] [address], [place] [address] Oct, [facility] [address] [id number] [address] [place] [address], [place] [address] Oct, [facility] [address] [id number] [address] [place] [address], [place] [address] Oct, [facility] [address] [id number] [address] [place] [address], [place] [address] Oct, [facility] [address] [id number] [address] [place] [address], [place] [address] Oct, [facility] [address] [id number] [address] [place] [address], [place] [address] Sep, [facility] [address] [id number] [address] [place] [address], [place] [address] Sep, [facility] [address] [id number] [address] [place] [address], [place] [address] Sep, [facility] [address] [id number] [address] [place] [address], [place] [address] Sep, [facility] [address] [id number] [address] [place] [address], [place] [address] Sep, [facility] [address] [id number] [address] [place] [address], [place] [address] Sep, [facility] [address] [id number] [address] [place] [address], [place] [address] Sep, [facility] [address] [id number] [address] [place] [address], [place] [address] Sep, [facility] [address] [id number] [address] [place] [address], [place] [address] Sep, [facility] [address] [id number] [address] [place] [address], [place] [address] Sep, [facility] [address] [id number] [address] [place] [address], [place] [address] Sep, [facility] [address] [id number] [address] [place] [address], [place] [address] Sep, [facility] [address] [id number] [address] [place] [address], [place] [address] Aug, [facility] [address] [id number] [address] [place] [address], [place] [address] Aug, [facility] [address] [id number] [address] [place] [id number] Aug, [facility] [address] [id number] [address] [place] [id number] Aug, [facility] [address] [id number] [address] [place] [id number] Aug, [facility] [address] [id number] [address] [place] [address] Aug, [facility] [address] [id number] [address] [place] [id number] Aug, [facility] [address] [id number] [address] [place] [id number] Aug, [facility] [address] [id number] [address] [place] [id number] Aug, [facility] [address] [id number] [address] [place] [id number] Aug, [facility] [address] [id number] [address] [place] [address] Jul, [facility] [address] [id number] [address] [place] [address], [place] [address] Jul, [facility] [address] [id number] [address] [place] [address], [place] [address] Jun, [facility] [address] [id number] [address] [place] [address], [place] [address] Jun, [facility] [address] [id number] [address] [place] [address], [place] [address] Jun, [facility] [address] [id number] [address] [place] [address], [place] [phone] May, [facility] [address] [id number] [address] [place] [address], [place] [phone] May, [facility] [address] [id number] [address] [place] [address], [place] [phone] May, [facility] [address] [id number] [address] [place] [address], [place] [phone] May, [facility] [address] [id number] [address] [place] [address], [place] [phone] Apr, [facility] [address] [id number] [address] [place] [address], [place] [phone] Apr, [facility] [address] [id number] [address] [place] [address], [place] [phone] Apr, [facility] [address] [id number] [address] [place] [address], [place] [phone] Apr, [facility] [address] [id number] [address] [place] [address], [place] [phone] March, [facility] [address] [id number] [address] [place] [address], [place] [phone] Jan, [facility] [address] [id number] [address] [place] [address], [place] [phone] Dec, [facility] [address] [id number] [address] [place] [phone] Dec, [facility] [address] [id number] [address] [place] [phone] Oct, [facility] [address] [id number] [address] [place] [phone] Oct, [facility] [address] [id number] [address] [place] [phone] Oct, [facility] [address] [id number] [address] [place] [phone] Oct, [facility] [address] [id number] [address] [place] [phone] 15 Oct, 2011 [facility] [address] [id number] [address] [place] [phone] Oct, [facility] [address] [id number] [address] [place] [phone] Oct, [facility] [address] [id number] [address] [place] [phone] 05 Oct, 2011 [facility] [address] [id number] [address] [place] [phone] 28 Sep, 2011 [facility] [address] [id number] [address] [place] [phone] Sep, [facility] [address] [id number] [address] [place] [phone] 15 Sep, 2011 [facility] [address] [id number] [address] [place] [phone] 15 Sep, 2011 [facility] [address] [id number] [address] [place] [phone] Aug, [facility] [address] [id number] [address] [place] [phone] 15 Jul, 2011 IMMUNIZATIONS No Known Immunizations SOCIAL HISTORY Never Assessed REASON FOR VISIT EMR-Antonio PLAN OF CARE VITAL SIGNS MEDICATIONS Medication Instructions Dosage Frequency Start Date End Date Duration S robert Levaquin 500 mg 1 tablet by Oral route every 24 hours for 10 days Aug, Active Flonase 50 mcg/actuation take 1 sprays b y Nasal route 2 times per day in each nostril Aug, Active Mobic 7.5 mg take 1 Tablet by Oral route 1 time per day May, Active Zithromax Z-Haris 250 mg 2 tablet by Oral route 1 time per day for 1 days then take 1 tab daily on days 2-5 Aug, Active PredniSONE 20 mg 2 tablet by Oral route 1 time per day for 5 days Dec, Active Fluoxetine 20 mg 1 capsule by Oral route 1 time per day Jun, Active EPINEPHrine 0.3 mg/0.3 mL 0.3 mg by Intramuscular rout e 1 time per dayPRN Apr, Active Patanol 0.1 % take 1 drop by Ophthalmic route 2 times per day May, Active minocycline 100 mg 1 tablet by Oral route 1 time per d ay for 30 day(s) Jun, Active Valproic Acid 500 mg 1 Capsule by Oral route 2 times per day Jun, Active ProAir HFA 90 mcg/actuation 2 puffs by I nhalation route 4 times per day for 30 day(s) Jan, Active Azithromycin 250 mg 2 Tablet by Oral rou te on day 1 then take 1 daily for 4 days Nov, Active MethylPREDNISolone 4 mg by Oral route ev asher day for 6 days as directed per dose pack Oct, Active SudoGest 60 mg take 1 tablet by Oral route as needed 2 times per day Apr, Active Bactrim DS 800-160 mg 1 tablet by Oral route 2 times p er day for 10 day(s) Dec, Active RESULTS No Results PROCEDURES No Known procedures INSTRUCTIONS MEDICATIONS ADMINISTERED No Known Medications MEDICAL (GENERAL) HISTORY Type Description Date Medical History seizures Medical History allergic rhinitis Medical History mood disorder Medical History back pain Surgical History tonsillectomy Hospitalization History Seizure activity - [facility]. 07/2018
--- OUTSIDE RECORDS SUMMARY | 2020-02-03 17:06 | XMS REPORT ---
Author Author Derek KEITH Organization [facility] Address [address] [place] [address] Care Team Providers Care Software Engineer Kernel Name Role Phone ARMANI KEITH Unavailable PROBLEMS Type Condition ICD9-CM Code UOF39-RH Code Onset Dates Condition S tatus SNOMED Code Problem Bladder spasms N32.89 Active 76055 7006 Problem Migraine with aura and without status migrainosu s, not intractable G43.109 Active 6080524 Problem Migraine with aura and without status migrainosu s, not intractable G43.109 Active 9537986 Problem Seasonal allergic rhinitis due to other allergic trigger J30.89 Active 998144084 Problem Anxiety F41.9 Active 25384591 Problem Mood disorder F39 Active 790979 05 Problem 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 47836423 ALLERGIES No Information ENCOUNTERS Encounter Location Date Diagnosis [facility] [address] [address] May, Nonintractable absence epile psy without status epilepticus G40.A09 and Migraine with aura and without status migrainosus, not intractable G43.109 [facility] [address] [facility] [id number] [address] [place] [address] Apr, [facility] [address] [facility] [id number] [address] [place] [address] March, [facility] [address] [facility] [id number] [address] [place] [address] Feb, Acute midline low back pain without sciatica M54.5 [facility] [address] [facility] [id number] [address] [place] [address] Feb, Seizures R56.9 [facility] [address] [place] [id number] [address] [place] [address] Jan, [facility] [address] [place] [id number] [place] [address] 14 Jan, 2019 Bronchitis J40 and Pleurisy R09.1 [facility] [address] [facility] [id number] [address] [place] [address] 12 Jan, 2019 Acute bronchitis, unspecifie d organism J20.9 and Fever R50.9 [facility] [address] [address] Jan, [facility] [address] [address] Jan, Seizures R56.9 [facility] [address] [place] [id number] [place] [address] Nov, [facility] [address] [address] Nov, [facility] [address] [address] Nov, Nonintractable absence epile psy without status epilepticus G40.A09 and Palpitations R00.2 [place] [address] [address] Nov, [facility] [address] [address] Oct, [facility] [address] [address] Sep, [facility] [address] [address] Aug, Seizures R56.9 and Mood diso rder F39 [facility] [address] [place] [id number] [address] [place] [address] 18 Jul, 2018 Dysuria R30.0 and Bladder sp asms N32.89 [place] [address] [place] [address] Jul, [facility] [address] [id number] [address] [place] [address] March, Elevated liver enzymes R74.8 and Abnormal CBC R79.89 [facility] [address] [facility] [id number] [address] [place] [address] March, Encounter for immunization Z 23 [facility] [address] [facility] [id number] [address] [place] [address] March, [facility] [address] [facility] [id number] [address] [place] [address] March, [facility] [address] [facility] [id number] [address] [place] [address] March, Elevated liver enzymes R74.8 and Abnormal CBC R79.89 [facility] [address] [facility] [id number] [address] [place] [address] March, Anxiety F41.9 ; Bronchitis J 40 and Seasonal allergic rhinitis due to other allergic trigger J30.89 [facility] [address] [facility] [id number] [address] [place] [address] March, [facility] [address] [facility] [id number] [address] [place] [address] Feb, [facility] [address] [facility] [id number] [address] [place] [address] Feb, Pharyngitis due to other org anism J02.8 [facility] [address] [facility] [id number] [address] [place] [address] Feb, Pharyngitis due to other org anism J02.8 [facility] [address] [facility] [id number] [address] [place] [address] Feb, Sore throat J02.9 ; Fatigue, unspecified type R53.83 and Strep pharyngitis J02.0 [facility] [address] [facility] [id number] [address] [place] [address] Feb, Acute nasopharyngitis J00 [facility] [address] [address] Feb, Lower abdominal pain R10.30 [facility] [place] [address] [address] Feb, Bladder spasms N32.89 and Ur inary frequency R35.0 [facility] [address] [address] Jan, Strep throat J02.0 [facility] [place] [address] [address] Dec, Seasonal allergic rhinitis, unspecified trigger J30.2 [place] [address] [address] Nov, Acute suppurative otitis med ia of both ears without spontaneous rupture of tympanic membranes, recurrence not specified H66.003 [facility] [place] [address] [address] Nov, Acute suppurative otitis med ia of both ears without spontaneous rupture of tympanic membranes, recurrence not specified H66.003 [facility] [place] [address] [address] Nov, Acute suppurative otitis med ia of both ears without spontaneous rupture of tympanic membranes, recurrence not specified H66.003 [place] [address] [place] [id number] [address] [place] [address] Oct, [place] [address] [address] Jul, Seizures R56.9 [place] [address] [address] 14 Jul, 2017 Seizures R56.9 ; Other chron ic pain G89.29 ; Pain in left ankle and joints of left foot M25.572 and Allergic rhinitis, unspecified allergic rhinitis trigger, unspecified rhinitis seasonality J30.9 [facility] [address] [address] 07 Jul, 2017 Acute seasonal allergic rhin itis due to other allergen J30.89 [facility] [address] [place] [id number] [place] [address] Jun, Left foot pain M79.672 and L eft lateral ankle pain M25.572 [facility] [address] [address] Aug, Allergic rhinitis, unspecifi ed allergic rhinitis trigger, unspecified rhinitis seasonality J30.9 ; Low back pain M54.5 and Other chronic pain G89.29 [facility] [address] [place] [address] Jul, [facility] [address] [place] [address] Jul, Low back pain M54.5 and Othe r chronic pain G89.29 [facility] [address] [place] [address] Jul, Acute maxillary sinusitis, r ecurrence not specified J01.00 [facility] [address] [place] [address] Jun, Cellulitis of left lower ext remity L03.116 [facility] [address] [place] [address] Apr, Wrist pain, left M25.532 [facility] [address] [place] [address] March, Low back pain M54.5 ; Fever, unspecified R50.9 and Strep pharyngitis J02.0 [facility] [address] [place] [address] March, Hordeolum externum of left u pper eyelid H00.014 and Acute follicular conjunctivitis of left eye H10.012 [place] [address] [address] Jan, Folliculitis L73.9 [facility] [place] [address] [address] Jan, Screen for sexually transmit yayo diseases Z11.3 [place] [address] [address] Nov, [place] [address] [address] Nov, Gen idiopathic epilepsy, not intractable, 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 [place] [address] [address] Nov, Malaise R53.81 ; Upper respi ratory infection J06.9 and Pharyngitis J02.9 [place] [address] [address] Nov, Acute pharyngitis, unspecifi ed J02.9 ; Acute upper respiratory infection, unspecified J06.9 ; Other viral agents as the cause of diseases classified elsewhere B97.89 and Allergic rhinitis J30.9 [place] [address] [address] Oct, Testicular pain N50.8 [place] [address] [address] 15 Jul, 2015 Sinusitis 473.9 [place] [address] [address] 12 Apr, 2015 Back pain 724.5 [place] [address] [address] 11 Apr, 2015 [place] [address] [address] 14 Feb, 2015 [facility] [address] [id number] [address] [place] [address], [place] [address] Feb, [facility] [address] [id number] [address] [place] [address], [place] [address] Jan, [facility] [address] [id number] [address] [place] [address], [place] [address] Nov, [facility] [address] [id number] [address] [place] [address], [place] [address] Nov, [facility] [address] [id number] [address] [place] [address], [place] [address] Nov, [facility] [address] [id number] [address] [place] [address], [place] [address] Nov, [facility] [address] [id number] [address] [place] [address], [place] [address] Oct, [facility] [address] [id number] [address] [place] [address], [place] [address] Oct, [facility] [address] [id number] [address] [place] [address], [place] [address] Aug, [facility] [address] [id number] [address] [place] [address] Aug, [facility] [address] [id number] [address] [place] [address] Aug, [facility] [address] [id number] [address] [place] [address] Aug, [facility] [address] [id number] [address] [place] [address], [place] [address] Aug, [facility] [address] [id number] [address] [place] [address], [place] [address] Aug, [facility] [address] [id number] [address] [place] [address] Aug, [facility] [address] [id number] [address] [place] [address] Aug, [facility] [address] [id number] [address] [place] [address], [place] [address] Jun, [facility] [address] [id number] [address] [place] [address], [place] [address] Jun, [facility] [address] [id number] [address] [place] [address], [place] [address] Jun, [facility] [address] [id number] [address] [place] [address], [place] [address] Jun, [facility] [address] [id number] [address] [place] [address], [place] [address] Jun, [facility] [address] [id number] [address] [place] [address], [place] [address] Jun, [facility] [address] [id number] [address] [place] [address], [place] [address] Jun, [facility] [address] [id number] [address] [place] [address], [place] [address] Jun, [facility] [address] [id number] [address] [place] [address], [place] [address] Jun, [facility] [address] [id number] [address] [place] [address], [place] [address] Jun, [facility] [address] [id number] [address] [place] [address], [place] [address] May, [facility] [address] [id number] [address] [place] [address], [place] [address] May, [facility] [address] [id number] [address] [place] [address], [place] [address] March, [facility] [place] [facility] [address] [id number] [address] [place] [address], [place] [address] March, [facility] [address] [id number] [address] [place] [address], [place] [address] March, [facility] [place] [facility] [address] [id number] [address] [place] [address], [place] [address] March, [facility] [address] [id number] [address] [place] [address], [place] [address] Feb, [facility] [place] [facility] [address] [id number] [address] [place] [address], [place] [address] Feb, [facility] [address] [id number] [address] [place] [address], [place] [address] Jan, [facility] [address] [id number] [address] [place] [address], [place] [address] Jan, [facility] [address] [id number] [address] [place] [address], [place] [address] Jan, [facility] [address] [id number] [address] [place] [address], [place] [address] Jan, [facility] [address] [id number] [address] [place] [address], [place] [address] Dec, [facility] [address] [id number] [address] [place] [address], [place] [address] Dec, [facility] [address] [id number] [address] [place] [address], [place] [address] Dec, [facility] [address] [id number] [address] [place] [address], [place] [address] Dec, [facility] [address] [id number] [address] [place] [address], [place] [address] Dec, [facility] [address] [id number] [address] [place] [address], [place] [address] Dec, [facility] [place] [facility] [address] [id number] [address] [place] [address], [place] [address] Nov, [facility] [place] [facility] [address] [id number] [address] [place] [address], [place] [address] Nov, [facility] [place] [facility] [address] [id number] [address] [place] [address], [place] [address] Nov, [facility] [address] [id number] [address] [place] [address], [place] [address] Nov, [facility] [address] [id number] [address] [place] [address], [place] [address] Nov, [facility] [address] [id number] [address] [place] [address], [place] [address] Nov, [facility] [address] [id number] [address] [place] [address], [place] [address] Nov, [facility] [address] [id number] [address] [place] [address], [place] [address] Nov, [facility] [address] [id number] [address] [place] [address], [place] [address] Nov, [facility] [address] [id number] [address] [place] [address], [place] [address] Nov, [facility] [address] [id number] [address] [place] [address], [place] [address] Nov, [facility] [address] [id number] [address] [place] [address], [place] [address] Nov, [facility] [address] [id number] [address] [place] [address], [place] [address] Oct, [facility] [address] [id number] [address] [place] [address], [place] [address] Oct, [facility] [address] [id number] [address] [place] [address], [place] [address] Oct, [facility] [address] [id number] [address] [place] [address], [place] [address] Oct, [facility] [address] [id number] [address] [place] [address], [place] [address] Sep, [facility] [address] [id number] [address] [place] [address], [place] [address] Sep, [facility] [address] [id number] [address] [place] [address], [place] [address] Sep, [facility] [address] [id number] [address] [place] [address], [place] [address] Sep, [facility] [address] [id number] [address] [place] [address], [place] [address] Sep, [facility] [address] [id number] [address] [place] [address], [place] [address] Sep, [facility] [address] [id number] [address] [place] [address], [place] [address] Sep, [facility] [address] [id number] [address] [place] [address], [place] [address] 18 Sep, 2013 [facility] [address] [id number] [address] [place] [address], [place] [address] 30 Jul, 2013 [facility] [address] [id number] [address] [place] [address], [place] [address] 26 Jul, 2013 [facility] [address] [id number] [address] [place] [address], [place] [address] 17 May, 2013 [facility] [address] [id number] [address] [place] [address], [place] [address] 26 Apr, 2013 [facility] [address] [id number] [address] [place] [address], [place] [address] 24 Apr, 2013 [facility] [address] [id number] [address] [place] [address], [place] [address] 20 Apr, 2013 [facility] [address] [id number] [address] [place] [address], [place] [address] Apr, [facility] [address] [id number] [address] [place] [address], [place] [address] 13 Apr, 2013 [facility] [address] [id number] [address] [place] [address], [place] [address] 10 Apr, 2013 [facility] [address] [id number] [address] [place] [address], [place] [address] Apr, [facility] [address] [id number] [address] [place] [address], [place] [address] March, [facility] [address] [id number] [address] [place] [address], [place] [address] March, [facility] [address] [id number] [address] [place] [address], [place] [address] Jan, [facility] [address] [id number] [address] [place] [address], [place] [address] Dec, [facility] [address] [id number] [address] [place] [address], [place] [address] Nov, [facility] [address] [id number] [address] [place] [address], [place] [address] Nov, [facility] [address] [id number] [address] [place] [address], [place] [address] Oct, [facility] [address] [id number] [address] [place] [address], [place] [address] Oct, [facility] [address] [id number] [address] [place] [address], [place] [address] Oct, [facility] [address] [id number] [address] [place] [address], [place] [address] Oct, [facility] [address] [id number] [address] [place] [address], [place] [address] Oct, [facility] [address] [id number] [address] [place] [address], [place] [address] Oct, [facility] [address] [id number] [address] [place] [address], [place] [address] Sep, [facility] [address] [id number] [address] [place] [address], [place] [address] Sep, [facility] [address] [id number] [address] [place] [address], [place] [address] Sep, [facility] [address] [id number] [address] [place] [address], [place] [address] Sep, [facility] [address] [id number] [address] [place] [address], [place] [address] Sep, [facility] [address] [id number] [address] [place] [address], [place] [address] Sep, [facility] [address] [id number] [address] [place] [address], [place] [address] Sep, [facility] [address] [id number] [address] [place] [address], [place] [address] Sep, [facility] [address] [id number] [address] [place] [address], [place] [address] Sep, [facility] [address] [id number] [address] [place] [address], [place] [address] Sep, [facility] [address] [id number] [address] [place] [address], [place] [address] Sep, [facility] [address] [id number] [address] [place] [address], [place] [address] Sep, [facility] [address] [id number] [address] [place] [address], [place] [address] Aug, [facility] [address] [id number] [address] [place] [address] Aug, [facility] [address] [id number] [address] [place] [address], [place] [address] Aug, [facility] [address] [id number] [address] [place] [address] Aug, [facility] [address] [id number] [address] [place] [address] Aug, [facility] [address] [id number] [address] [place] [address] Aug, [facility] [address] [id number] [address] [place] [address] Aug, [facility] [address] [id number] [address] [place] [address], [place] [address] Aug, [facility] [address] [id number] [address] [place] [address], [place] [address] Aug, [facility] [address] [id number] [address] [place] [address], [place] [address] Aug, [facility] [address] [id number] [address] [place] [address], [place] [id number] 24 Jul, 2012 [facility] [address] [id number] [address] [place] [address], [place] [address] Jul, [facility] [address] [id number] [address] [place] [address], [place] [id number] Jun, [facility] [address] [id number] [address] [place] [address], [place] [address] Jun, [facility] [address] [id number] [address] [place] [address], [place] [address] Jun, [facility] [address] [id number] [address] [place] [address], [place] [address] May, [facility] [address] [id number] [address] [place] [address], [place] [address] May, [facility] [address] [id number] [address] [place] [address], [place] [address] May, [facility] [address] [id number] [address] [place] [address], [place] [address] May, [facility] [address] [id number] [address] [place] [address], [place] [address] Apr, [facility] [address] [id number] [address] [place] [address], [place] [address] Apr, [facility] [address] [id number] [address] [place] [address], [place] [address] Apr, [facility] [address] [id number] [address] [place] [address], [place] [address] Apr, [facility] [address] [id number] [address] [place] [address], [place] [address] March, [facility] [address] [id number] [address] [place] [address], [place] [address] Jan, [facility] [address] [id number] [address] [place] [address], [place] [address] Dec, [facility] [address] [id number] [address] [place] [address], [place] [id number] Dec, [facility] [address] [id number] [address] [place] [address], [place] [id number] Oct, [facility] [address] [id number] [address] [place] [address], [place] [id number] Oct, [facility] [address] [id number] [address] [place] [address], [place] [id number] Oct, [facility] [address] [id number] [address] [place] [address], [place] [id number] Oct, [facility] [address] [id number] [address] [place] [address], [place] [id number] 15 Oct, 2011 [facility] [address] [id number] [address] [place] [address], [place] [id number] Oct, [facility] [address] [id number] [address] [place] [address], [place] [id number] Oct, [facility] [address] [id number] [address] [place] [address], [place] [id number] 05 Oct, 2011 [facility] [address] [id number] [address] [place] [address], [place] [id number] Sep, [facility] [address] [id number] [address] [place] [address], [place] [id number] 28 Sep, 2011 [facility] [address] [id number] [address] [place] [address], [place] [id number] 15 Sep, 2011 [facility] [address] [id number] [address] [place] [id number] 15 Sep, 2011 [facility] [address] [facility] [id number] [address] [place] [id number] 11 Aug, 2011 [facility] [address] [facility] [id number] [address] [place] [id number] 15 Jul, 2011 IMMUNIZATIONS No Known Immunizations [...] History tonsillectomy Hospitalization History Seizure activity - [facility]. 07/2018
--- OUTSIDE RECORDS SUMMARY | 2020-02-03 17:06 | XMS REPORT ---
Author Author Derek WEBB Organization [facility] Address [address] [place] [address] Care Team Providers Care Principal Programmer Name Role Phone THANIA WEBB Unavailable PROBLEMS Type Condition ICD9-CM Code CAQ53-OC Code Onset Dates Condition S tatus SNOMED Code Problem Bladder spasms N32.89 Active 72202 7006 Problem Migraine with aura and without status migrainosu s, not intractable G43.109 Active 0318690 Problem Migraine with aura and without status migrainosu s, not intractable G43.109 Active 6735663 Problem Seasonal allergic rhinitis due to other allergic trigger J30.89 Active 945685984 Problem Anxiety F41.9 Active 41951855 Problem Mood disorder F39 Active 780167 05 Problem 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 [id number] [address] [place] [phone] May, Nonintractable absence epile psy without status epilepticus G40.A09 and Migraine with aura and without status migrainosus, not intractable G43.109 [facility] [address] [facility] [id number] [address] [place] [phone] Apr, [facility] [address] [facility] [id number] [address] [place] [phone] March, [facility] [address] [facility] [id number] [address] [place] [phone] Feb, Acute midline low back pain without sciatica M54.5 [facility] [address] [facility] [id number] [address] [place] [phone] Feb, Seizures R56.9 [facility] [address] [place] [id number] [address] [place] [phone] Jan, [facility] [address] [id number] 14 Jan, 2019 Bronchitis J40 and Pleurisy R09.1 [facility] [address] [place] [id number] [address] [place] [address] 12 Jan, 2019 Acute bronchitis, unspecifie d organism J20.9 and Fever R50.9 [facility] [address] [address] Jan, [facility] [address] [address] Jan, Seizures R56.9 [facility] [address] [address] Nov, [facility] [address] [address] Nov, [facility] [address] [address] Nov, Nonintractable absence epile psy without status epilepticus G40.A09 and Palpitations R00.2 [facility] [address] [place] [id number] [address] [place] [address] Nov, [facility] [address] [address] Oct, [facility] [address] [address] Sep, [facility] [address] [address] Aug, Seizures R56.9 and Mood diso rder F39 [facility] [address] [place] [id number] [address] [place] [phone] 18 Jul, 2018 Dysuria R30.0 and Bladder sp asms N32.89 [facility] [id number] [place] [address] Jul, [facility] [address] [facility] [id number] [address] [place] [phone] March, Elevated liver enzymes R74.8 and Abnormal CBC R79.89 [facility] [address] [facility] [id number] [address] [place] [phone] March, Encounter for immunization Z 23 [facility] [address] [facility] [id number] [address] [place] [phone] March, [facility] [address] [facility] [id number] [address] [place] [phone] March, [facility] [address] [facility] [id number] [address] [place] [phone] March, Elevated liver enzymes R74.8 and Abnormal CBC R79.89 [facility] [address] [facility] [id number] [address] [place] [phone] March, Anxiety F41.9 ; Bronchitis J 40 and Seasonal allergic rhinitis due to other allergic trigger J30.89 [facility] [address] [facility] [id number] [address] [place] [phone] March, [facility] [address] [facility] [id number] [address] [place] [id number] Feb, [facility] [address] [facility] [id number] [address] [place] [address] Feb, Pharyngitis due to other org anism J02.8 [facility] [address] [facility] [id number] [address] [place] [phone] Feb, Pharyngitis due to other org anism J02.8 [facility] [address] [facility] [id number] [address] [place] [address] Feb, Sore throat J02.9 ; Fatigue, unspecified type R53.83 and Strep pharyngitis J02.0 [facility] [address] [place] [id number] [address] [place] [phone] 07 Feb, 2018 Acute nasopharyngitis J00 [facility] [address] [address] 04 Feb, 2018 Lower abdominal pain R10.30 [facility] [place] [address] [address] 02 Feb, 2018 Bladder spasms N32.89 and Ur inary frequency R35.0 [facility] [address] [address] Jan, Strep throat J02.0 [facility] [place] [address] [address] Dec, Seasonal allergic rhinitis, unspecified trigger J30.2 [place] [address] [address] Nov, Acute suppurative otitis med ia of both ears without spontaneous rupture of tympanic membranes, recurrence not specified H66.003 [facility] [place] [address] [address] Nov, Acute suppurative otitis med ia of both ears without spontaneous rupture of tympanic membranes, recurrence not specified H66.003 [facility] [place] [address] [address] Nov, Acute suppurative otitis med ia of both ears without spontaneous rupture of tympanic membranes, recurrence not specified H66.003 [place] [address] [place] [id number] [address] [place] [phone] Oct, [place] [address] [address] 21 Jul, 2017 Seizures R56.9 [place] [address] [place] [id number] [place] [address] 14 Jul, 2017 Seizures R56.9 ; Other chron ic pain G89.29 ; Pain in left ankle and joints of left foot M25.572 and Allergic rhinitis, unspecified allergic rhinitis trigger, unspecified rhinitis seasonality J30.9 [facility] [address] [address] 07 Jul, 2017 Acute seasonal allergic rhin itis due to other allergen J30.89 [facility] [address] [place] [address] Jun, Left foot pain M79.672 and L eft lateral ankle pain M25.572 [facility] [address] [address] Aug, Allergic rhinitis, unspecifi ed allergic rhinitis trigger, unspecified rhinitis seasonality J30.9 ; Low back pain M54.5 and Other chronic pain G89.29 [facility] [address] [place] [address] Jul, [facility] [address] [place] [address] Jul, Low back pain M54.5 and Othe r chronic pain G89.29 [facility] [address] [place] [address] Jul, Acute maxillary sinusitis, r ecurrence not specified J01.00 [facility] [address] [place] [address] Jun, Cellulitis of left lower ext remity L03.116 [facility] [address] [place] [address] Apr, Wrist pain, left M25.532 [facility] [address] [place] [address] March, Low back pain M54.5 ; Fever, unspecified R50.9 and Strep pharyngitis J02.0 [facility] [address] [place] [address] 06 May, 2016 Hordeolum externum of left u pper eyelid H00.014 and Acute follicular conjunctivitis of left eye H10.012 [place] [address] [address] Jan, Folliculitis L73.9 [facility] [place] [address] [address] Jan, Screen for sexually transmit yayo diseases Z11.3 [place] [address] [address] Nov, [place] [address] [address] Nov, Gen idiopathic epilepsy, not intractable, 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 [facility] [place] [address] [address] Nov, Malaise R53.81 ; Upper respi ratory infection J06.9 and Pharyngitis J02.9 [facility] [place] [address] [address] Nov, Acute pharyngitis, unspecifi ed J02.9 ; Acute upper respiratory infection, unspecified J06.9 ; Other viral agents as the cause of diseases classified elsewhere B97.89 and Allergic rhinitis J30.9 [facility] [place] [address] [address] 04 Oct, 2015 Testicular pain N50.8 [place] [address] [address] 15 Jul, 2015 Sinusitis 473.9 [place] [address] [address] 12 Apr, 2015 Back pain 724.5 [place] [address] [address] 11 Apr, 2015 [place] [address] [address] Feb, [facility] [address] [id number] [address] [place] [address], [place] [address] Feb, [facility] [address] [id number] [address] [place] [address], [place] [address] Jan, [facility] [address] [id number] [address] [place] [address], [place] [address] Nov, [facility] [address] [id number] [address] [place] [address], [place] [address] Nov, [facility] [address] [id number] [address] [place] [address], [place] [address] Nov, [facility] [address] [id number] [address] [place] [address], [place] [address] Nov, [facility] [address] [id number] [address] [place] [address], [place] [address] Oct, [facility] [address] [id number] [address] [place] [address], [place] [address] Oct, [facility] [address] [id number] [address] [place] [address], [place] [address] Aug, [facility] [address] [id number] [address] [place] [address] Aug, [facility] [address] [id number] [address] [place] [address], [place] [address] Aug, [facility] [address] [id number] [address] [place] [address] Aug, [facility] [address] [id number] [address] [place] [address], [place] [address] Aug, [facility] [address] [id number] [address] [place] [address], [place] [address] Aug, [facility] [address] [id number] [address] [place] [address], [place] [address] Aug, [facility] [address] [id number] [address] [place] [address], [place] [address] Aug, [facility] [address] [id number] [address] [place] [address], [place] [address] Jun, [facility] [address] [id number] [address] [place] [address], [place] [address] Jun, [facility] [address] [id number] [address] [place] [address], [place] [address] Jun, [facility] [address] [id number] [address] [place] [address], [place] [address] Jun, [facility] [address] [id number] [address] [place] [address], [place] [address] Jun, [facility] [address] [id number] [address] [place] [address], [place] [address] Jun, [facility] [address] [id number] [address] [place] [address], [place] [address] Jun, [facility] [address] [id number] [address] [place] [address], [place] [address] Jun, [facility] [address] [id number] [address] [place] [address], [place] [id number] Jun, [facility] [address] [id number] [address] [place] [address], [place] [address] Jun, [facility] [address] [id number] [address] [place] [address], [place] [address] May, [facility] [address] [id number] [address] [place] [address], [place] [address] May, [facility] [address] [id number] [address] [place] [address], [place] [address] March, [facility] [address] [id number] [address] [place] [address], [place] [address] March, [facility] [address] [id number] [address] [place] [address], [place] [address] March, [facility] [address] [id number] [address] [place] [address], [place] [address] March, [facility] [address] [id number] [address] [place] [address], [place] [address] Feb, [facility] [address] [id number] [address] [place] [address], [place] [address] Feb, [facility] [address] [id number] [address] [place] [address], [place] [address] Jan, [facility] [address] [id number] [address] [place] [address], [place] [address] Jan, [facility] [address] [id number] [address] [place] [address], [place] [address] Jan, [facility] [address] [id number] [address] [place] [address], [place] [address] Jan, [facility] [address] [id number] [address] [place] [address], [place] [address] Dec, [facility] [address] [id number] [address] [place] [address], [place] [address] Dec, [facility] [address] [id number] [address] [place] [address], [place] [id number] Dec, [facility] [address] [id number] [address] [place] [address], [place] [address] Dec, [facility] [address] [id number] [address] [place] [address], [place] [address] Dec, [facility] [address] [id number] [address] [place] [address], [place] [address] Dec, [facility] [address] [id number] [address] [place] [address], [place] [address] Nov, [facility] [address] [id number] [address] [place] [address], [place] [address] Nov, [facility] [address] [id number] [address] [place] [phone] Nov, [facility] [address] [id number] [address] [place] [address], [place] [address] Nov, [facility] [address] [id number] [address] [place] [address], [place] [address] Nov, [facility] [address] [id number] [address] [place] [address], [place] [address] Nov, [facility] [address] [id number] [address] [place] [address], [place] [address] Nov, [facility] [address] [id number] [address] [place] [address], [place] [address] Nov, [facility] [address] [id number] [address] [place] [address], [place] [address] Nov, [facility] [address] [id number] [address] [place] [address], [place] [address] Nov, [facility] [address] [id number] [address] [place] [address], [place] [address] Nov, [facility] [address] [id number] [address] [place] [address], [place] [address] Nov, [facility] [address] [id number] [address] [place] [address], [place] [id number] Oct, [facility] [address] [id number] [address] [place] [address], [place] [address] Oct, [facility] [address] [id number] [address] [place] [address], [place] [id number] Oct, [facility] [address] [id number] [address] [place] [address], [place] [address] Oct, [facility] [address] [id number] [address] [place] [address], [place] [address] Sep, [facility] [address] [id number] [address] [place] [address], [place] [address] Sep, [facility] [address] [id number] [address] [place] [address], [place] [address] Sep, [facility] [address] [id number] [address] [place] [address], [place] [address] Sep, [facility] [address] [id number] [address] [place] [address], [place] [address] Sep, [facility] [address] [id number] [address] [place] [address], [place] [address] Sep, [facility] [address] [id number] [address] [place] [address], [place] [address] Sep, [facility] [address] [id number] [address] [place] [address], [place] [address] Sep, [facility] [address] [id number] [address] [place] [address], [place] [address] 30 Jul, 2013 [facility] [address] [id number] [address] [place] [address], [place] [address] Jul, [facility] [address] [id number] [address] [place] [address], [place] [address] May, [facility] [address] [id number] [address] [place] [address], [place] [address] Apr, [facility] [address] [id number] [address] [place] [address], [place] [id number] 24 Apr, 2013 [facility] [address] [id number] [address] [place] [address], [place] [address] Apr, [facility] [address] [id number] [address] [place] [address], [place] [address] Apr, [facility] [address] [id number] [address] [place] [address], [place] [address] Apr, [facility] [address] [id number] [address] [place] [address], [place] [address] 10 Apr, 2013 [facility] [address] [id number] [address] [place] [address] [address] Apr, [facility] [address] [id number] [address] [place] [address], [place] [address] March, [facility] [address] [id number] [address] [place] [address], [place] [id number] March, [facility] [address] [id number] [address] [place] [address], [place] [address] Jan, [facility] [address] [id number] [address] [place] [address], [place] [address] Dec, [facility] [address] [id number] [address] [place] [address], [place] [address] Nov, [facility] [address] [id number] [address] [place] [address], [place] [address] Nov, [facility] [address] [id number] [address] [place] [address], [place] [address] Oct, [facility] [address] [id number] [address] [place] [address], [place] [address] Oct, [facility] [address] [id number] [address] [place] [address], [place] [address] Oct, [facility] [address] [id number] [address] [place] [address], [place] [id number] Oct, [facility] [address] [id number] [address] [place] [address], [place] [id number] Oct, [facility] [address] [id number] [address] [place] [address], [place] [id number] Oct, [facility] [address] [id number] [address] [place] [address], [place] [id number] Sep, [facility] [address] [id number] [address] [place] [address], [place] [id number] Sep, [facility] [address] [id number] [address] [place] [address], [place] [id number] Sep, [facility] [address] [id number] [address] [place] [address], [place] [id number] Sep, [facility] [address] [id number] [address] [place] [address], [place] [id number] Sep, [facility] [address] [id number] [address] [place] [address], [place] [id number] Sep, [facility] [address] [id number] [address] [place] [address], [place] [id number] Sep, [facility] [address] [id number] [address] [place] [address], [place] [id number] Sep, [facility] [address] [id number] [address] [place] [address], [place] [id number] Sep, [facility] [address] [id number] [address] [place] [address], [place] [id number] Sep, [facility] [address] [id number] [address] [place] [address], [place] [id number] Sep, [facility] [address] [id number] [address] [place] [address], [place] [id number] Sep, [facility] [address] [id number] [address] [place] [address], [place] [id number] Aug, [facility] [address] [id number] [address] [place] [address], [place] [id number] Aug, [facility] [address] [id number] [address] [place] [address], [place] [id number] Aug, [facility] [address] [id number] [address] [place] [address], [place] [id number] Aug, [facility] [address] [id number] [address] [place] [address], [place] [id number] Aug, [facility] [address] [id number] [address] [place] [address], [place] [id number] Aug, [facility] [address] [id number] [address] [place] [address], [place] [id number] Aug, [facility] [address] [id number] [address] [place] [address], [place] [id number] Aug, [facility] [address] [id number] [address] [place] [address], [place] [id number] Aug, [facility] [address] [id number] [address] [place] [address], [place] [id number] Aug, [facility] [address] [id number] [address] [place] [address], [place] [id number] Jul, [facility] [address] [id number] [address] [place] [address], [place] [id number] Jul, [facility] [address] [id number] [address] [place] [address], [place] [id number] Jun, [facility] [address] [id number] [address] [place] [address], [place] [id number] Jun, [facility] [address] [id number] [address] [place] [address], [place] [id number] Jun, [facility] [address] [id number] [address] [place] [address], [place] [id number] May, [facility] [address] [id number] [address] [place] [address], [place] [id number] May, [facility] [address] [id number] [address] [place] [address], [place] [id number] May, [facility] [address] [id number] [address] [place] [address], [place] [id number] May, [facility] [address] [id number] [address] [place] [address], [place] [id number] Apr, [facility] [address] [id number] [address] [place] [address], [place] [id number] Apr, [facility] [address] [id number] [address] [place] [address], [place] [id number] Apr, [facility] [address] [id number] [address] [place] [address], [place] [id number] Apr, [facility] [address] [id number] [address] [place] [address], [place] [id number] March, [facility] [address] [id number] [address] [place] [address], [place] [id number] Jan, [facility] [address] [id number] [address] [place] [address], [place] [id number] Dec, [facility] [address] [id number] [address] [place] [address], [place] [id number] Dec, [facility] [address] [id number] [address] [place] [address], [place] [id number] Oct, [facility] [address] [id number] [address] [place] [address], [place] [id number] Oct, [facility] [address] [id number] [address] [place] [address], [place] [id number] Oct, [facility] [address] [id number] [address] [place] [address], [place] [id number] Oct, [facility] [address] [id number] [address] [place] [address], [place] [id number] 15 Oct, 2011 [facility] [address] [id number] [address] [place] [address], [place] [id number] 15 Oct, 2011 [facility] [address] [id number] [address] [place] [address], [place] [id number] Oct, [facility] [address] [id number] [address] [place] [address], [place] [id number] 05 Oct, 2011 [facility] [address] [id number] [address] [place] [address], [place] [id number] Sep, [facility] [address] [id number] [address] [place] [address], [place] [id number] 28 Sep, 2011 [facility] [address] [id number] [address] [place] [address], [place] [id number] 15 Sep, 2011 [facility] [address] [facility] [id number] [address] [place] [id number] 15 Sep, 2011 [facility] [address] [facility] [id number] [address] [place] [id number] 11 Aug, 2011 [facility] [address] [facility] [id number] [address] [place] [id number] 15 Jul, 2011 IMMUNIZATIONS No Known Immunizations [...] History tonsillectomy Hospitalization History Seizure activity - [facility]. 07/2018
--- OUTSIDE RECORDS SUMMARY | 2020-02-03 17:07 | XMS REPORT ---
Author Author Derek KEITH Organization [facility] Address [address] [place] [address] Care Team Providers Care Healthcare Insurance Sales Agent Name Role Phone ARMANI KEITH Unavailable PROBLEMS Type Condition ICD9-CM Code ZTA41-DV Code Onset Dates Condition S tatus SNOMED Code Problem Mood disorder F39 Active 339671 05 Problem Anxiety F41.9 Active 10400181 Problem Seasonal allergic rhinitis due to other allergic trigger J30.89 Active 461259775 Problem Bladder spasms N32.89 Active 75733 7006 ALLERGIES No Information ENCOUNTERS Encounter Location Date Diagnosis [id number] [id number] [address] [place] [address] Oct, [place] [place] [id number] [place] [address] Sep, [place] [place] [id number] [place] [address] Aug, Seizures R56.9 and Mood diso rder F39 [place] [address] [place] [id number] [address] [place] [address] Jul, Dysuria R30.0 and Bladder sp asms N32.89 [place] [place] [id number] [address] [place] [address] Jul, [place] [address] [place] [id number] [address] [place] [address] March, Elevated liver enzymes R74.8 and Abnormal CBC R79.89 [place] [address] [place] [id number] [address] [place] [address] March, Encounter for immunization Z 23 [place] [address] [place] [id number] [address] [place] [address] March, [facility] [address] [facility] [id number] [address] [place] [address] March, [facility] [address] [facility] [id number] [address] [place] [address] March, Elevated liver enzymes R74.8 and Abnormal CBC R79.89 [place] [address] [address] March, Anxiety F41.9 ; Bronchitis J 40 and Seasonal allergic rhinitis due to other allergic trigger J30.89 [facility] [address] [facility] [id number] [address] [place] [phone] March, [facility] [address] [place] [id number] [place] [address] Feb, [facility] [address] [place] [id number] [place] [address] Feb, Pharyngitis due to other org anism J02.8 [facility] [address] [place] [id number] [address] [place] [phone] Feb, Pharyngitis due to other org anism J02.8 [facility] [address] [address] Feb, Sore throat J02.9 ; Fatigue, unspecified type R53.83 and Strep pharyngitis J02.0 [facility] [address] [place] [id number] [address] [place] [phone] Feb, Acute nasopharyngitis J00 [facility] [address] [place] [id number] [address] [place] [address] Feb, Lower abdominal pain R10.30 [facility] [address] [place] [id number] [place] [address] Feb, Bladder spasms N32.89 and Ur inary frequency R35.0 [facility] [address] [place] [id number] [place] [address] Jan, Strep throat J02.0 [facility] [place] [address] [facility] [id number] [address] [place] [address] Dec, Seasonal allergic rhinitis, unspecified trigger J30.2 [place] [address] [facility] [id number] [address] [place] [address] Nov, Acute suppurative otitis med ia of both ears without spontaneous rupture of tympanic membranes, recurrence not specified H66.003 [facility] [place] [address] [address] [facility] [id number] [address] [place] [phone] Nov, Acute suppurative otitis med ia of both ears without spontaneous rupture of tympanic membranes, recurrence not specified H66.003 [facility] [place] [address] [place] [id number] [place] [address] Nov, Acute suppurative otitis med ia of both ears without spontaneous rupture of tympanic membranes, recurrence not specified H66.003 [place] [address] [place] [address] Oct, [place] [address] [address] 21 Jul, 2017 Seizures R56.9 [place] [address] [place] [id number] [place] [address] 14 Jul, 2017 Seizures R56.9 ; Other chron ic pain G89.29 ; Pain in left ankle and joints of left foot M25.572 and Allergic rhinitis, unspecified allergic rhinitis trigger, unspecified rhinitis seasonality J30.9 [facility] [place] [address] [address] [facility] [id number] [address] [place] [phone] 07 Jul, 2017 Acute seasonal allergic rhin itis due to other allergen J30.89 [facility] [place] [address] [address] [facility] [id number] [address] [place] [address] Jun, Left foot pain M79.672 and L eft lateral ankle pain M25.572 [place] [address] [address] Aug, Allergic rhinitis, unspecifi ed allergic rhinitis trigger, unspecified rhinitis seasonality J30.9 ; Low back pain M54.5 and Other chronic pain G89.29 [facility] [address] Jul, [facility] [address] [address] Jul, Low back pain M54.5 and Othe r chronic pain G89.29 [facility] N [address] [address] Jul, Acute maxillary sinusitis, r ecurrence not specified J01.00 [facility] [place] [address] [address] Jun, Cellulitis of left lower ext remity L03.116 [facility] N [address] [address] Apr, Wrist pain, left M25.532 [facility] [place] [address] [address] March, Low back pain M54.5 ; Fever, unspecified R50.9 and Strep pharyngitis J02.0 [facility] [place] [address] [address] March, Hordeolum externum of left u pper eyelid H00.014 and Acute follicular conjunctivitis of left eye H10.012 [place] [address] [address] Jan, Folliculitis L73.9 [facility] [place] [address] [address] Jan, Screen for sexually transmit yayo diseases Z11.3 [place] [address] [address] Nov, [facility] [address] [facility] [id number] [address] [place] [address] Nov, Gen idiopathic epilepsy, not intractable, 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 [facility] [address] [facility] [id number] [address] [place] [address] Nov, Malaise R53.81 ; Upper respi ratory infection J06.9 and Pharyngitis J02.9 [facility] [address] [facility] [id number] [address] [place] [address] 04 Nov, 2015 Acute pharyngitis, unspecifi ed J02.9 ; Acute upper respiratory infection, unspecified J06.9 ; Other viral agents as the cause of diseases classified elsewhere B97.89 and Allergic rhinitis J30.9 [facility] [address] [place] [id number] [address] [place] [address] 04 Oct, 2015 Testicular pain N50.8 [facility] [address] [place] [id number] [address] [place] [address] 15 Jul, 2015 Sinusitis 473.9 [facility] [address] [address] 12 Apr, 2015 Back pain 724.5 [facility] [address] [facility] [id number] [address] [place] [address] 11 Apr, 2015 [facility] [address] [place] [phone] 14 Feb, 2015 [facility] [address] [facility] [id number] [address] [place] [id number] 13 Feb, 2015 [facility] [address] [place] [id number] [address] [place] [address] 04 Jan, 2015 [facility] [address] [place] [id number] [address] [place] [address] 14 Nov, 2014 [facility] [address] [place] [id number] [address] [place] [address] Nov, [facility] [address] [id number] [address] [place] [address], [place] [address] Nov, [facility] [address] [id number] [address] [place] [address], [place] [address] Nov, [facility] [address] [id number] [address] [place] [address], [place] [address] Oct, [facility] [address] [id number] [address] [place] [address], [place] [address] Oct, [facility] [address] [id number] [address] [place] [address], [place] [address] Aug, [facility] [address] [id number] [address] [place] [address], [place] [address] Aug, [facility] [address] [id number] [address] [place] [address], [place] [address] Aug, [facility] [address] [id number] [address] [place] [address], [place] [address] Aug, [facility] [address] [id number] [address] [place] [address], [place] [address] Aug, [facility] [address] [id number] [address] [place] [address], [place] [address] Aug, [facility] [address] [id number] [address] [place] [address], [place] [address] Aug, [facility] [address] [id number] [address] [place] [address], [place] [address] Aug, [facility] [address] [id number] [address] [place] [address], [place] [address] Jun, [facility] [address] [id number] [address] [place] [address], [place] [address] Jun, [facility] [address] [id number] [address] [place] [address], [place] [address] Jun, [facility] [address] [id number] [address] [place] [address], [place] [address] Jun, [facility] [address] [id number] [address] [place] [address], [place] [address] Jun, [facility] [address] [id number] [address] [place] [address], [place] [address] Jun, [facility] [address] [id number] [address] [place] [address], [place] [address] Jun, [facility] [address] [id number] [address] [place] [address], [place] [address] Jun, [facility] [address] [id number] [address] [place] [address], [place] [address] Jun, [facility] [address] [id number] [address] [place] [address], [place] [address] Jun, [facility] [address] [id number] [address] [place] [address], [place] [address] May, [facility] [address] [id number] [address] [place] [address], [place] [address] May, [facility] [address] [id number] [address] [place] [address], [place] [address] March, [facility] [address] [id number] [address] [place] [address], [place] [address] March, [facility] [address] [id number] [address] [place] [address], [place] [address] March, [facility] [address] [id number] [address] [place] [address], [place] [address] March, [facility] [address] [id number] [address] [place] [address], [place] [address] Feb, [facility] [address] [id number] [address] [place] [address], [place] [address] Feb, [facility] [address] [id number] [address] [place] [address], [place] [address] Jan, [facility] [address] [id number] [address] [place] [address], [place] [address] Jan, [facility] [address] [id number] [address] [place] [address], [place] [address] Jan, [facility] [address] [id number] [address] [place] [address], [place] [address] Jan, [facility] [address] [id number] [address] [place] [address], [place] [address] Dec, [facility] [address] [id number] [address] [place] [address], [place] [address] Dec, [facility] [address] [id number] [address] [place] [address], [place] [address] Dec, [facility] [address] [id number] [address] [place] [address], [place] [address] Dec, [facility] [address] [id number] [address] [place] [address], [place] [address] Dec, [facility] [address] [id number] [address] [place] [address], [place] [address] Dec, [facility] [address] [id number] [address] [place] [address], [place] [address] Nov, [facility] [address] [id number] [address] [place] [address], [place] [address] Nov, [facility] [address] [id number] [address] [place] [address], [place] [address] Nov, [facility] [address] [id number] [address] [place] [address], [place] [address] Nov, [facility] [address] [id number] [address] [place] [address], [place] [address] Nov, [facility] [address] [id number] [address] [place] [address], [place] [address] Nov, [facility] [address] [id number] [address] [place] [address], [place] [address] Nov, [facility] [address] [id number] [address] [place] [address], [place] [address] Nov, [facility] [address] [id number] [address] [place] [address], [place] [address] Nov, [facility] [address] [id number] [address] [place] [address], [place] [address] Nov, [facility] [address] [id number] [address] [place] [address], [place] [address] Nov, [facility] [address] [id number] [address] [place] [address], [place] [address] Nov, [facility] [address] [id number] [address] [place] [address], [place] [address] Oct, [facility] [address] [id number] [address] [place] [address], [place] [address] Oct, [facility] [address] [id number] [address] [place] [address], [place] [address] Oct, [facility] [address] [id number] [address] [place] [address], [place] [address] Oct, [facility] [address] [id number] [address] [place] [address], [place] [address] Sep, [facility] [address] [id number] [address] [place] [address], [place] [address] Sep, [facility] [address] [id number] [address] [place] [address], [place] [address] Sep, [facility] [address] [id number] [address] [place] [address], [place] [address] Sep, [facility] [address] [id number] [address] [place] [address], [place] [address] Sep, [facility] [address] [id number] [address] [place] [address], [place] [address] Sep, [facility] [address] [id number] [address] [place] [address], [place] [address] Sep, [facility] [address] [id number] [address] [place] [address], [place] [address] Sep, [facility] [address] [id number] [address] [place] [address], [place] [address] 30 Jul, 2013 [facility] [address] [id number] [address] [place] [address], [place] [address] Jul, [facility] [address] [id number] [address] [place] [address], [place] [address] May, [facility] [address] [id number] [address] [place] [address], [place] [address] Apr, [facility] [address] [id number] [address] [place] [address], [place] [address] Apr, [facility] [address] [id number] [address] [place] [address], [place] [address] Apr, [facility] [address] [id number] [address] [place] [address], [place] [address] Apr, [facility] [address] [id number] [address] [place] [address], [place] [address] Apr, [facility] [address] [id number] [address] [place] [address], [place] [address] Apr, [facility] [address] [id number] [address] [place] [address], [place] [address] Apr, [facility] [address] [id number] [address] [place] [address], [place] [address] March, [facility] [address] [id number] [address] [place] [address], [place] [address] March, [facility] [address] [id number] [address] [place] [address], [place] [address] Jan, [facility] [address] [id number] [address] [place] [address], [place] [address] Dec, [facility] [address] [id number] [address] [place] [address], [place] [address] Nov, [facility] [address] [id number] [address] [place] [address], [place] [address] Nov, [facility] [address] [id number] [address] [place] [address], [place] [address] Oct, [facility] [address] [id number] [address] [place] [address], [place] [address] Oct, [facility] [address] [id number] [address] [place] [address], [place] [address] Oct, [facility] [address] [id number] [address] [place] [address], [place] [address] Oct, [facility] [address] [id number] [address] [place] [address], [place] [address] Oct, [facility] [address] [id number] [address] [place] [address], [place] [address] Oct, [facility] [address] [id number] [address] [place] [address], [place] [address] Sep, [facility] [address] [id number] [address] [place] [address], [place] [address] Sep, [facility] [address] [id number] [address] [place] [address], [place] [address] Sep, [facility] [address] [id number] [address] [place] [address], [place] [address] Sep, [facility] [address] [id number] [address] [place] [address], [place] [address] Sep, [facility] [address] [id number] [address] [place] [address], [place] [address] Sep, [facility] [address] [id number] [address] [place] [address], [place] [address] Sep, [facility] [address] [id number] [address] [place] [address] Sep, [facility] [address] [id number] [address] [place] [address], [place] [address] Sep, [facility] [address] [id number] [address] [place] [address] Sep, [facility] [address] [id number] [address] [place] [phone] Sep, [facility] [address] [id number] [address] [place] [phone] Sep, [facility] [address] [id number] [address] [place] [address], [place] [address] Aug, [facility] [address] [id number] [address] [place] [id number] Aug, [facility] [address] [id number] [address] [place] [phone] Aug, [facility] [address] [id number] [address] [place] [id number] Aug, [facility] [address] [id number] [address] [place] [phone] Aug, [facility] [address] [id number] [address] [place] [phone] Aug, [facility] [address] [id number] [address] [place] [id number] Aug, [facility] [address] [id number] [address] [place] [phone] Aug, [facility] [address] [id number] [address] [place] [phone] Aug, [facility] [address] [id number] [address] [place] [phone] Aug, [facility] [address] [id number] [address] [place] [id number] 24 Jul, 2012 [facility] [address] [id number] [address] [place] [address], [place] [address] Jul, [facility] [address] [id number] [address] [place] [address], [place] [address] Jun, [facility] [address] [id number] [address] [place] [address], [place] [address] Jun, [facility] [address] [id number] [address] [place] [address], [place] [address] Jun, [facility] [address] [id number] [address] [place] [address], [place] [address] May, [facility] [address] [id number] [address] [place] [address], [place] [address] May, [facility] [address] [id number] [address] [place] [address], [place] [address] May, [facility] [address] [id number] [address] [place] [address], [place] [address] May, [facility] [address] [id number] [address] [place] [address], [place] [address] Apr, [facility] [address] [id number] [address] [place] [address], [place] [address] Apr, [facility] [address] [id number] [address] [place] [address], [place] [address] Apr, [facility] [address] [id number] [address] [place] [address], [place] [address] Apr, [facility] [address] [id number] [address] [place] [address], [place] [address] March, [facility] [address] [id number] [address] [place] [address], [place] [address] Jan, [facility] [address] [id number] [address] [place] [address], [place] [address] Dec, [facility] [address] [id number] [address] [place] [address], [place] [address] Dec, [facility] [address] [id number] [address] [place] [id number] Oct, [facility] [address] [id number] [address] [place] [phone] Oct, [facility] [address] [id number] [address] [place] [id number] Oct, [facility] [address] [id number] [address] [place] [phone] Oct, [facility] [address] [id number] [address] [place] [id number] Oct, [facility] [address] [id number] [address] [place] [id number] Oct, [facility] [address] [id number] [address] [place] [phone] Oct, [facility] [address] [id number] [address] [place] [id number] Oct, [facility] [address] [id number] [address] [place] [phone] Sep, [facility] [address] [id number] [address] [place] [phone] Sep, [facility] [address] [address] [id number] [address] [place] [phone] Sep, [facility] [address] [id number] [address] [place] [phone] Sep, [facility] [address] [id number] [address] [place] [id number] Aug, [facility] [address] [id number] [address] [place] [phone] Jul, IMMUNIZATIONS No Known Immunizations SOCIAL HISTORY Never Assessed REASON FOR VISIT Returned call PLAN OF CARE VITAL SIGNS MEDICATIONS Unknown Medications RESULTS No Results PROCEDURES No Known procedures INSTRUCTIONS MEDICATIONS ADMINISTERED No Known Medications MEDICAL (GENERAL) HISTORY Type Description Date Medical History seizures Medical History allergic rhinitis Medical History mood disorder Medical History back pain Surgical History No know Surgical history Hospitalization History Seizure activity - [facility]. 07/2018
--- OUTSIDE RECORDS SUMMARY | 2020-02-03 17:07 | XMS REPORT ---
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 92042533 Problem Bladder spasms N32.89 Active 53423 7006 Problem Anxiety F41.9 Active 06334163 Problem Seasonal allergic rhinitis due to other allergic trigger J30.89 Active [id number] ALLERGIES No Information ENCOUNTERS Encounter Location Date Diagnosis [facility] [address] [facility] [id number] [address] [place] [id number] Jan, [facility] [address] [facility] [id number] [address] [place] [address] Jan, Seizures R56.9 [facility] [address] [facility] [id number] [address] [place] [address] Nov, [facility] [address] [facility] [id number] [address] [place] [address] Nov, [facility] [address] [facility] [id number] [address] [place] [address] Nov, Nonintractable absence epile psy without status epilepticus G40.A09 and Palpitations R00.2 [facility] [address] [facility] [id number] [address] [place] [id number] Nov, [facility] [address] [facility] [id number] [address] [place] [address] Oct, [facility] [address] [facility] [id number] [address] [place] [address] Sep, [facility] [address] [place] [id number] [address] [place] [address] Aug, Seizures R56.9 and Mood diso rder F39 [place] [id number] [place] [id number] [place] [id number] Jul, Dysuria R30.0 and Bladder sp asms N32.89 [facility] [address] [place] [id number] [place] [address] Jul, [facility] [address] [address] March, Elevated liver enzymes R74.8 and Abnormal CBC R79.89 [place] [address] [address] March, Encounter for immunization Z 23 [facility] [address] [place] [id number] [place] [address] March, [facility] [address] [address] March, [facility] [address] [address] March, Elevated liver enzymes R74.8 and Abnormal CBC R79.89 [place] [address] [address] March, Anxiety F41.9 ; Bronchitis J 40 and Seasonal allergic rhinitis due to other allergic trigger J30.89 [facility] [address] [place] [id number] [address] [place] [address] March, [facility] [address] [place] [id number] [address] [place] [address] Feb, [facility] [address] [place] [id number] [place] [address] Feb, Pharyngitis due to other org anism J02.8 [facility] [address] [place] [id number] [address] [place] [address] Feb, Pharyngitis due to other org anism J02.8 [facility] [address] Feb, Sore throat J02.9 ; Fatigue, unspecified type R53.83 and Strep pharyngitis J02.0 [facility] [address] [address] Feb, Acute nasopharyngitis J00 [facility] [address] [address] Feb, Lower abdominal pain R10.30 [facility] [address] [address] Feb, Bladder spasms N32.89 and Ur inary frequency R35.0 [facility] [place] [address] [address] Jan, Strep throat J02.0 [facility] [address] [address] Dec, Seasonal allergic rhinitis, unspecified trigger J30.2 [place] [address] [address] [place] [id number] [address] [place] [address] Nov, Acute suppurative otitis med ia of both ears without spontaneous rupture of tympanic membranes, recurrence not specified H66.003 [facility] W[facility] IN [facility]ARE [facility] [place] [id number] [address] [place] [address] Nov, Acute suppurative otitis med ia of both ears without spontaneous rupture of tympanic membranes, recurrence not specified H66.003 [facility] IN [facility] N [address] [address] Nov, Acute suppurative otitis med ia of both ears without spontaneous rupture of tympanic membranes, recurrence not specified H66.003 [place] [address] [place] [id number] [address] [place] [address] Oct, [place] [address] [place] [id number] [address] [place] [address] 21 Jul, 2017 Seizures R56.9 [place] [address] [address] 14 Jul, 2017 Seizures R56.9 ; Other chron ic pain G89.29 ; Pain in left ankle and joints of left foot M25.572 and Allergic rhinitis, unspecified allergic rhinitis trigger, unspecified rhinitis seasonality J30.9 [facility] [address] [address] 07 Jul, 2017 Acute seasonal allergic rhin itis due to other allergen J30.89 [facility] [place] [address] [address] Jun, Left foot pain M79.672 and L eft lateral ankle pain M25.[address] [address] Aug, Allergic rhinitis, unspecifi ed allergic rhinitis trigger, unspecified rhinitis seasonality J30.9 ; Low back pain M54.5 and Other chronic pain G89.29 [facility] [address] [address] Jul, [facility] [address] [address] 12 Jul, 2016 Low back pain M54.5 and Othe r chronic pain G89.29 [facility] [place] [id number] [address] [place] [address] 09 Jul, 2016 Acute maxillary sinusitis, r ecurrence not specified J01.00 [facility] [address] [place] [address] Jun, Cellulitis of left lower ext remity L03.116 [facility] [address] [place] [address] Apr, Wrist pain, left M25.532 [facility] [address] [address] March, Low back pain M54.5 ; Fever, unspecified R50.9 and Strep pharyngitis J02.0 [facility] WALK IN [place] [address] [address] March, Hordeolum externum of left u pper eyelid H00.014 and Acute follicular conjunctivitis of left eye H10.012 [place] [address] [address] Jan, Folliculitis L73.9 [facility] W[facility] IN [place] [address] [address] Jan, Screen for sexually transmit yayo diseases Z11.3 [place] [address] [address] Nov, [place] [address] [address] Nov, Gen idiopathic epilepsy, not intractable, 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 [facility] [place] [address] [address] Nov, Malaise R53.81 ; Upper respi ratory infection J06.9 and Pharyngitis J02.9 [facility] [place] [address] [address] Nov, Acute pharyngitis, unspecifi ed J02.9 ; Acute upper respiratory infection, unspecified J06.9 ; Other viral agents as the cause of diseases classified elsewhere B97.89 and Allergic rhinitis J30.9 [facility] [place] [address] [address] 04 Oct, 2015 Testicular pain N50.8 [place] [address] [address] 15 Jul, 2015 Sinusitis 473.9 [facility] [address] [id number] [address] [place] [address], [place] [address] 12 Apr, 2015 Back pain 724.5 [facility] [address] [id number] [address] [place] [address], [place] [address] 11 Apr, 2015 [facility] [address] [id number] [address] [place] [address], [place] [address] Feb, [facility] [address] [id number] [address] [place] [address], [place] [address] Feb, [facility] [address] [id number] [address] [place] [address], [place] [address] Jan, [facility] [address] [id number] [address] [place] [address], [place] [address] Nov, [facility] [address] [id number] [address] [place] [address], [place] [address] Nov, [facility] [address] [id number] [address] [place] [address], [place] [address] Nov, [facility] [address] [id number] [address] [place] [address], [place] [address] Nov, [facility] [address] [id number] [address] [place] [address], [place] [address] Oct, [facility] [address] [id number] [address] [place] [address], [place] [address] Oct, [facility] [address] [id number] [address] [place] [address], [place] [address] Aug, [facility] [address] [id number] [address] [place] [address], [place] [address] Aug, [facility] [address] [id number] [address] [place] [address], [place] [address] Aug, [facility] [address] [id number] [address] [place] [address] Aug, [facility] [address] [id number] [address] [place] [address] Aug, [facility] [address] [id number] [address] [place] [address], [place] [address] Aug, [facility] [address] [id number] [address] [place] [address], [place] [address] Aug, [facility] [address] [id number] [address] [place] [address], [place] [address] Aug, [facility] [address] [id number] [address] [place] [address], [place] [address] Jun, [facility] [address] [id number] [address] [place] [address], [place] [address] Jun, [facility] [address] [id number] [address] [place] [address], [place] [address] Jun, [facility] [address] [id number] [address] [place] [address], [place] [address] Jun, [facility] [address] [id number] [address] [place] [address], [place] [address] Jun, [facility] [address] [id number] [address] [place] [address], [place] [address] Jun, [facility] [address] [id number] [address] [place] [address], [place] [address] Jun, [facility] [address] [id number] [address] [place] [address], [place] [address] Jun, [facility] [address] [id number] [address] [place] [address], [place] [address] Jun, [facility] [address] [id number] [address] [place] [address], [place] [address] Jun, [facility] [address] [id number] [address] [place] [address], [place] [address] May, [facility] [address] [id number] [address] [place] [address], [place] [address] May, [facility] [address] [id number] [address] [place] [address], [place] [address] March, [facility] [address] [id number] [address] [place] [address], [place] [address] March, [facility] [address] [id number] [address] [place] [address], [place] [address] March, [facility] [address] [id number] [address] [place] [address], [place] [address] March, [facility] [address] [id number] [address] [place] [address], [place] [address] Feb, [facility] [address] [id number] [address] [place] [address], [place] [address] Feb, [facility] [address] [id number] [address] [place] [address], [place] [address] Jan, [facility] [address] [id number] [address] [place] [address], [place] [address] Jan, [facility] [address] [id number] [address] [place] [address], [place] [address] Jan, [facility] [address] [id number] [address] [place] [address], [place] [address] Jan, [facility] [address] [id number] [address] [place] [address], [place] [address] Dec, [facility] [address] [id number] [address] [place] [address], [place] [address] 18 Dec, 2013 [facility] [address] [id number] [address] [place] [address], [place] [address] Dec, [facility] [address] [id number] [address] [place] [address], [place] [address] 14 Dec, 2013 [facility] [address] [id number] [address] [place] [address], [place] [address] Dec, [facility] [address] [id number] [address] [place] [address], [place] [address] Dec, [facility] [address] [id number] [address] [place] [address], [place] [address] Nov, [facility] [address] [id number] [address] [place] [address], [place] [address] Nov, [facility] [address] [id number] [address] [place] [address], [place] [address] Nov, [facility] [address] [id number] [address] [place] [address], [place] [address] Nov, [facility] [address] [id number] [address] [place] [address], [place] [address] Nov, [facility] [address] [id number] [address] [place] [address], [place] [address] Nov, [facility] [address] [id number] [address] [place] [address], [place] [address] Nov, [facility] [address] [id number] [address] [place] [address], [place] [address] Nov, [facility] [address] [id number] [address] [place] [address], [place] [address] Nov, [facility] [address] [id number] [address] [place] [address], [place] [address] Nov, [facility] [address] [id number] [address] [place] [address], [place] [address] Nov, [facility] [address] [id number] [address] [place] [address], [place] [address] Nov, [facility] [address] [id number] [address] [place] [address], [place] [address] Oct, [facility] [address] [id number] [address] [place] [address], [place] [address] Oct, [facility] [address] [id number] [address] [place] [address], [place] [address] Oct, [facility] [address] [id number] [address] [place] [address], [place] [address] 17 Oct, 2013 [facility] [address] [id number] [address] [place] [address], [place] [address] Sep, [facility] [address] [id number] [address] [place] [address], [place] [address] Sep, [facility] [address] [id number] [address] [place] [address], [place] [address] Sep, [facility] [address] [id number] [address] [place] [address], [place] [address] Sep, [facility] [address] [id number] [address] [place] [address], [place] [address] Sep, [facility] [address] [id number] [address] [place] [address], [place] [address] Sep, [facility] [address] [id number] [address] [place] [address], [place] [address] Sep, [facility] [address] [id number] [address] [place] [address], [place] [address] Sep, [facility] [address] [id number] [address] [place] [address], [place] [address] 30 Jul, 2013 [facility] [address] [id number] [address] [place] [address], [place] [address] Jul, [facility] [address] [id number] [address] [place] [address], [place] [address] May, [facility] [address] [id number] [address] [place] [address], [place] [address] Apr, [facility] [address] [id number] [address] [place] [address], [place] [address] 24 Apr, 2013 [facility] [address] [id number] [address] [place] [address], [place] [address] Apr, [facility] [address] [id number] [address] [place] [address] 13 Apr, 2013 [facility] [address] [id number] [address] [place] [address], [place] [address] Apr, [facility] [address] [id number] [address] [place] [address], [place] [address] Apr, [facility] [address] [id number] [address] [place] [address], [place] [address] Apr, [facility] [address] [id number] [address] [place] [address], [place] [address] March, [facility] [address] [id number] [address] [place] [address], [place] [address] March, [facility] [address] [id number] [address] [place] [address], [place] [address] Jan, [facility] [address] [id number] [address] [place] [address], [place] [address] Dec, [facility] [address] [id number] [address] [place] [address], [place] [address] Nov, [facility] [address] [id number] [address] [place] [address], [place] [address] Nov, [facility] [address] [id number] [address] [place] [address], [place] [address] Oct, [facility] [address] [id number] [address] [place] [address], [place] [address] Oct, [facility] [address] [id number] [address] [place] [address], [place] [address] Oct, [facility] [address] [id number] [address] [place] [address], [place] [address] Oct, [facility] [address] [id number] [address] [place] [address], [place] [address] Oct, [facility] [address] [id number] [address] [place] [address], [place] [address] Oct, [facility] [address] [id number] [address] [place] [address], [place] [address] Sep, [facility] [address] [id number] [address] [place] [address], [place] [address] Sep, [facility] [address] [id number] [address] [place] [address], [place] [address] Sep, [facility] [address] [id number] [address] [place] [address], [place] [address] Sep, [facility] [address] [id number] [address] [place] [address], [place] [address] Sep, [facility] [address] [id number] [address] [place] [address], [place] [address] Sep, [facility] [address] [id number] [address] [place] [address], [place] [address] Sep, [facility] [address] [id number] [address] [place] [address], [place] [address] Sep, [facility] [address] [id number] [address] [place] [address], [place] [address] Sep, [facility] [address] [id number] [address] [place] [address], [place] [address] Sep, [facility] [address] [id number] [address] [place] [address], [place] [address] Sep, [facility] [address] [id number] [address] [place] [id number] Sep, [facility] [address] [id number] [address] [place] [address] Aug, [facility] [address] [id number] [address] [place] [address], [place] [address] Aug, [facility] [address] [id number] [address] [place] [address], [place] [address] Aug, [facility] [address] [id number] [address] [place] [address], [place] [address] Aug, [facility] [address] [id number] [address] [place] [address], [place] [address] Aug, [facility] [address] [id number] [address] [place] [address], [place] [address] Aug, [facility] [address] [id number] [address] [place] [address], [place] [address] Aug, [facility] [address] [id number] [address] [place] [address], [place] [address] Aug, [facility] [address] [id number] [address] [place] [address], [place] [address] Aug, [facility] [address] [id number] [address] [place] [address], [place] [address] Aug, [facility] [address] [id number] [address] [place] [address], [place] [address] Jul, [facility] [address] [id number] [address] [place] [address], [place] [address] Jul, [facility] [address] [id number] [address] [place] [address], [place] [address] Jun, [facility] [address] [id number] [address] [place] [address], [place] [address] Jun, [facility] [address] [id number] [address] [place] [address], [place] [address] Jun, [facility] [address] [id number] [address] [place] [address], [place] [address] May, [facility] [address] [id number] [address] [place] [address], [place] [address] May, [facility] [address] [id number] [address] [place] [address], [place] [address] May, [facility] [address] [id number] [address] [place] [address], [place] [address] May, [facility] [address] [id number] [address] [place] [address], [place] [address] Apr, [facility] [address] [id number] [address] [place] [address], [place] [address] Apr, [facility] [address] [id number] [address] [place] [address], [place] [address] Apr, [facility] [address] [id number] [address] [place] [address], [place] [address] Apr, [facility] [address] [id number] [address] [place] [address], [place] [address] March, [facility] [address] [id number] [address] [place] [address], [place] [address] Jan, [facility] [address] [id number] [address] [place] [address], [place] [address] Dec, [facility] [address] [id number] [address] [place] [address], [place] [address] Dec, [facility] [address] [id number] [address] [place] [address], [place] [address] Oct, [facility] [address] [id number] [address] [place] [address], [place] [address] Oct, [facility] [address] [id number] [address] [place] [address], [place] [address] Oct, [facility] [address] [id number] [address] [place] [address], [place] [address] 19 Oct, 2011 [facility] [address] [id number] [address] [place] [address], [place] [id number] 15 Oct, 2011 [facility] [address] [id number] [address] [place] [address], [place] [id number] 15 Oct, 2011 [facility] [address] [id number] [address] [place] [address], [place] [id number] 13 Oct, 2011 [facility] [address] [id number] [address] [place] [address], [place] [id number] 05 Oct, 2011 [facility] [address] [id number] [address] [place] [id number] Sep, [facility] [address] [facility] [id number] [address] [place] [id number] Sep, [facility] [address] [facility] [id number] [address] [place] [id number] Sep, [facility] [address] [facility] [id number] [address] [place] [phone] Sep, [facility] [address] [facility] [id number] [address] [place] [id number] Aug, [facility] [address] [facility] [id number] [address] [place] [phone] Jul, IMMUNIZATIONS No Known Immunizations SOCIAL HISTORY Never Assessed REASON FOR VISIT EMR-[facility] [place] PLAN OF CARE VITAL SIGNS MEDICATIONS Unknown Medications RESULTS No Results PROCEDURES No Known procedures INSTRUCTIONS MEDICATIONS ADMINISTERED No Known Medications MEDICAL (GENERAL) HISTORY Type Description Date Medical History seizures Medical History allergic rhinitis Medical History mood disorder Medical History back pain Surgical History No know Surgical history Hospitalization History Seizure activity - [facility]. 07/2018
--- OUTSIDE RECORDS SUMMARY | 2020-02-03 17:07 | XMS REPORT ---
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 Name Role Phone ARMANI KEITH Unavailable PROBLEMS Type Condition ICD9-CM Code TWG10-CI Code Onset Dates Condition S tatus SNOMED Code Problem Mood disorder F39 Active 705978 05 Problem Anxiety F41.9 Active 45780325 Problem Seasonal allergic rhinitis due to other allergic trigger J30.89 Active 358319904 Problem Bladder spasms N32.89 Active 06035 7006 ALLERGIES No Information ENCOUNTERS Encounter Location Date Diagnosis [place] [address] [address] Sep, [place] [address] [address] Aug, Seizures R56.9 and Mood diso rder F39 [place] [address] [address] 18 Jul, 2018 Dysuria R30.0 and Bladder sp asms N32.89 [place] [address] [address] [place] [id number] [place] [address] Jul, [place] [address] [address] [place] [id number] [place] [address] March, Elevated liver enzymes R74.8 and Abnormal CBC R79.89 [place] [address] [address] [place] [id number] [address] [place] [address] March, Encounter for immunization Z 23 [place] [address] [address] [place] [id number] [address] [place] [address] March, [place] [address] [address] March, [facility] [address] [place] [id number] [address] [place] [address] March, Elevated liver enzymes R74.8 and Abnormal CBC R79.89 [facility] [address] [place] [id number] [place] [address] March, Anxiety F41.9 ; Bronchitis J 40 and Seasonal allergic rhinitis due to other allergic trigger J30.89 [facility] [address] [place] [id number] [address] [place] [address] March, [facility] [address] [place] [id number] [place] [address] Feb, [facility] [address] [address] Feb, Pharyngitis due to other org anism J02.8 [facility] [address] [address] Feb, Pharyngitis due to other org anism J02.8 [facility] [address] [address] Feb, Sore throat J02.9 ; Fatigue, unspecified type R53.83 and Strep pharyngitis J02.0 [facility] [address] [address] Feb, Acute nasopharyngitis J00 [facility] [address] [place] [id number] [place] [address] Feb, Lower abdominal pain R10.30 [facility] [address] [place] [id number] [place] [address] Feb, Bladder spasms N32.89 and Ur inary frequency R35.0 [facility] [address] [place] [id number] [address] [place] [address] Jan, Strep throat J02.0 [facility] [address] [address] Dec, Seasonal allergic rhinitis, unspecified trigger J30.2 [place] [address] [address] Nov, Acute suppurative otitis med ia of both ears without spontaneous rupture of tympanic membranes, recurrence not specified H66.003 [facility] [place] [address] [address] Nov, Acute suppurative otitis med ia of both ears without spontaneous rupture of tympanic membranes, recurrence not specified H66.003 [facility] [place] [address] [address] Nov, Acute suppurative otitis med ia of both ears without spontaneous rupture of tympanic membranes, recurrence not specified H66.003 [place] [address] [address] Oct, [place] [address] [address] 21 Jul, 2017 Seizures R56.9 [place] [address] [address] 14 Jul, 2017 Seizures R56.9 ; Other chron ic pain G89.29 ; Pain in left ankle and joints of left foot M25.572 and Allergic rhinitis, unspecified allergic rhinitis trigger, unspecified rhinitis seasonality J30.9 [facility] [place] [address] [address] 07 Jul, 2017 Acute seasonal allergic rhin itis due to other allergen J30.89 [facility] [place] [address] [address] 02 Jun, 2017 Left foot pain M79.672 and L eft lateral ankle pain M25.572 [place] [address] [address] Aug, Allergic rhinitis, unspecifi ed allergic rhinitis trigger, unspecified rhinitis seasonality J30.9 ; Low back pain M54.5 and Other chronic pain G89.29 [facility] [address] [address] Jul, [facility] N [address] [address] Jul, Low back pain M54.5 and Othe r chronic pain G89.29 [facility] [address] [place] [address] Jul, Acute maxillary sinusitis, r ecurrence not specified J01.00 [facility] [address] [place] [address] Jun, Cellulitis of left lower ext remity L03.116 [facility] [address] [address] Apr, Wrist pain, left M25.532 [facility] [address] [address] March, Low back pain M54.5 ; Fever, unspecified R50.9 and Strep pharyngitis J02.0 [facility] [address] [address] March, Hordeolum externum of left u pper eyelid H00.014 and Acute follicular conjunctivitis of left eye H10.012 [place] [address] [address] Jan, Folliculitis L73.9 [facility] [address] [address] Jan, Screen for sexually transmit yayo diseases Z11.3 [place] [address] [address] Nov, [place] [address] [address] Nov, Gen idiopathic epilepsy, not intractable, 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 [facility] [address] [facility] [id number] [address] [place] [address] Nov, Malaise R53.81 ; Upper respi ratory infection J06.9 and Pharyngitis J02.9 [facility] IN [facility] [address] [facility] [id number] [address] [place] [address] Nov, Acute pharyngitis, unspecifi ed J02.9 ; Acute upper respiratory infection, unspecified J06.9 ; Other viral agents as the cause of diseases classified elsewhere B97.89 and Allergic rhinitis J30.9 [facility] [address] [facility] [id number] [address] [place] [address] 04 Oct, 2015 Testicular pain N50.8 [place] [address] [address] [place] [id number] [place] [address] 15 Jul, 2015 Sinusitis 473.9 [facility] [address] [place] [id number] [place] [address] 12 Apr, 2015 Back pain 724.5 [place] [address] [place] [id number] [address] [place] [address] 11 Apr, 2015 [facility] [address] [place] [id number] [place] [phone] 14 Feb, 2015 [facility] [address] [place] [id number] [place] [address] Feb, [facility] [address] [facility] [id number] [address] [place] [address] Jan, [facility] [address] [place] [id number] [address] [place] [address] Nov, [facility] [address] [place] [id number] [place] [address] Nov, [facility] [address] [place] [id number] [place] [address] Nov, [facility] [address] [id number] [address] [place] [address], [place] [address] Nov, [facility] [address] [id number] [address] [place] [address], [place] [address] Oct, [facility] [address] [id number] [address] [place] [address], [place] [address] Oct, [facility] [address] [id number] [address] [place] [address], [place] [address] Aug, [facility] [address] [id number] [address] [place] [address], [place] [address] Aug, [facility] [address] [id number] [address] [place] [address], [place] [address] Aug, [facility] [address] [id number] [address] [place] [address], [place] [address] Aug, [facility] [address] [id number] [address] [place] [address], [place] [address] Aug, [facility] [address] [id number] [address] [place] [address], [place] [address] Aug, [facility] [address] [id number] [address] [place] [address], [place] [address] Aug, [facility] [address] [id number] [address] [place] [address], [place] [address] Aug, [facility] [address] [id number] [address] [place] [address], [place] [address] Jun, [facility] [address] [id number] [address] [place] [address], [place] [address] Jun, [facility] [address] [id number] [address] [place] [address], [place] [address] Jun, [facility] [address] [id number] [address] [place] [address], [place] [address] Jun, [facility] [address] [id number] [address] [place] [address], [place] [address] Jun, [facility] [address] [id number] [address] [place] [address], [place] [address] Jun, [facility] [address] [id number] [address] [place] [address], [place] [address] Jun, [facility] [address] [id number] [address] [place] [address], [place] [address] Jun, [facility] [address] [id number] [address] [place] [address], [place] [address] Jun, [facility] [address] [id number] [address] [place] [address], [place] [address] Jun, [facility] [address] [id number] [address] [place] [address], [place] [address] May, [facility] [address] [id number] [address] [place] [address], [place] [address] May, [facility] [address] [id number] [address] [place] [address], [place] [address] March, [facility] [address] [id number] [address] [place] [address], [place] [address] March, [facility] [address] [id number] [address] [place] [address], [place] [address] March, [facility] [address] [id number] [address] [place] [address], [place] [address] March, [facility] [address] [id number] [address] [place] [address], [place] [address] Feb, [facility] [address] [id number] [address] [place] [address], [place] [address] Feb, [facility] [address] [id number] [address] [place] [address], [place] [address] Jan, [facility] [address] [id number] [address] [place] [address], [place] [address] Jan, [facility] [address] [id number] [facility] [place] [address] Jan, [facility] [address] [id number] [address] [place] [address], [place] [address] Jan, [facility] [address] [id number] [address] [place] [address], [place] [address] 18 Dec, 2013 [facility] [address] [id number] [address] [place] [address], [place] [address] Dec, [facility] [address] [id number] [address] [place] [address], [place] [address] Dec, [facility] [address] [id number] [address] [place] [address], [place] [address] Dec, [facility] [address] [id number] [address] [place] [address], [place] [address] Dec, [facility] [address] [id number] [address] [place] [address], [place] [address] Dec, [facility] [address] [id number] [address] [place] [address], [place] [address] Nov, [facility] [address] [id number] [address] [place] [address], [place] [address] Nov, [facility] [address] [id number] [address] [place] [address], [place] [address] Nov, [facility] [address] [id number] [address] [place] [address], [place] [address] Nov, [facility] [address] [id number] [address] [place] [address], [place] [address] Nov, [facility] [address] [id number] [address] [place] [address], [place] [address] Nov, [facility] [address] [id number] [address] [place] [address], [place] [address] Nov, [facility] [address] [id number] [address] [place] [address], [place] [address] Nov, [facility] [address] [id number] [address] [place] [address], [place] [address] Nov, [facility] [address] [id number] [address] [place] [address], [place] [address] Nov, [facility] [address] [id number] [address] [place] [address], [place] [address] Nov, [facility] [address] [id number] [address] [place] [address], [place] [address] Nov, [facility] [address] [id number] [address] [place] [address], [place] [address] Oct, [facility] [address] [id number] [address] [place] [address], [place] [address] Oct, [facility] [address] [id number] [address] [place] [address], [place] [address] Oct, [facility] [address] [id number] [address] [place] [address], [place] [address] Oct, [facility] [address] [id number] [address] [place] [address], [place] [address] Sep, [facility] [address] [id number] [address] [place] [address], [place] [address] Sep, [facility] [address] [id number] [address] [place] [address], [place] [address] Sep, [facility] [address] [id number] [address] [place] [address], [place] [address] Sep, [facility] [address] [id number] [address] [place] [address], [place] [address] Sep, [facility] [address] [id number] [address] [place] [address], [place] [address] Sep, [facility] [address] [id number] [address] [place] [address], [place] [address] 18 Sep, 2013 [facility] [address] [id number] [address] [place] [address], [place] [address] 18 Sep, 2013 [facility] [address] [id number] [address] [place] [address], [place] [address] 30 Jul, 2013 [facility] [address] [id number] [address] [place] [address], [place] [address] 26 Jul, 2013 [facility] [address] [id number] [address] [place] [address], [place] [address] 17 May, 2013 [facility] [address] [id number] [address] [place] [address], [place] [address] Apr, [facility] [address] [id number] [address] [place] [address], [place] [address] 24 Apr, 2013 [facility] [address] [id number] [address] [place] [address], [place] [address] Apr, [facility] [address] [id number] [address] [place] [address], [place] [address] Apr, [facility] [address] [id number] [address] [place] [address], [place] [address] Apr, [facility] [address] [id number] [address] [place] [address], [place] [address] Apr, [facility] [address] [id number] [address] [place] [address], [place] [address] Apr, [facility] [address] [id number] [address] [place] [address], [place] [address] March, [facility] [address] [id number] [address] [place] [address], [place] [address] March, [facility] [address] [id number] [address] [place] [address], [place] [address] Jan, [facility] [address] [id number] [address] [place] [address], [place] [address] Dec, [facility] [address] [id number] [address] [place] [address], [place] [address] Nov, [facility] [address] [id number] [address] [place] [address], [place] [address] Nov, [facility] [address] [id number] [address] [place] [address], [place] [address] Oct, [facility] [address] [id number] [address] [place] [address], [place] [address] Oct, [facility] [address] [id number] [address] [place] [address], [place] [address] Oct, [facility] [address] [id number] [address] [place] [address], [place] [address] Oct, [facility] [address] [id number] [address] [place] [address], [place] [address] Oct, [facility] [address] [id number] [address] [place] [address], [place] [address] Oct, [facility] [address] [id number] [address] [place] [address], [place] [address] Sep, [facility] [address] [id number] [address] [place] [address], [place] [address] Sep, [facility] [address] [id number] [address] [place] [address], [place] [address] Sep, [facility] [address] [id number] [address] [place] [address], [place] [address] Sep, [facility] [address] [id number] [address] [place] [address], [place] [address] Sep, [facility] [address] [id number] [address] [place] [address], [place] [address] Sep, [facility] [address] [id number] [address] [place] [address], [place] [address] Sep, [facility] [address] [id number] [address] [place] [address], [place] [address] Sep, [facility] [address] [id number] [address] [place] [address] Sep, [facility] [address] [id number] [address] [place] [address], [place] [address] Sep, [facility] [address] [id number] [address] [place] [address] Sep, [facility] [address] [id number] [address] [place] [address] Sep, [facility] [address] [id number] [address] [place] [address] Aug, [facility] [address] [id number] [address] [place] [address], [place] [address] Aug, [facility] [address] [id number] [address] [place] [id number] Aug, [facility] [address] [id number] [address] [place] [phone] Aug, [facility] [address] [id number] [address] [place] [phone] Aug, [facility] [address] [id number] [address] [place] [phone] Aug, [facility] [address] [id number] [address] [place] [id number] Aug, [facility] [address] [id number] [address] [place] [id number] Aug, [facility] [address] [id number] [address] [place] [id number] Aug, [facility] [address] [id number] [address] [place] [phone] Aug, [facility] [address] [id number] [address] [place] [id number] 24 Jul, 2012 [facility] [address] [id number] [address] [place] [id number] 06 Jul, 2012 [facility] [address] [id number] [facility] [place] [address] Jun, [facility] [address] [id number] [address] [place] [address], [place] [id number] Jun, [facility] [address] [id number] [address] [place] [address], [place] [id number] Jun, [facility] [address] [id number] [address] [place] [address], [place] [id number] May, [facility] [address] [id number] [address] [place] [address], [place] [id number] May, [facility] [address] [id number] [address] [place] [address], [place] [id number] May, [facility] [address] [id number] [address] [place] [address], [place] [id number] May, [facility] [address] [id number] [address] [place] [address], [place] [id number] Apr, [facility] [address] [id number] [address] [place] [address], [place] [id number] Apr, [facility] [address] [id number] [address] [place] [address], [place] [id number] Apr, [facility] [address] [id number] [address] [place] [address], [place] [id number] Apr, [facility] [address] [id number] [address] [place] [address], [place] [id number] March, [facility] [address] [id number] [address] [place] [address], [place] [id number] Jan, [facility] [address] [id number] [address] [place] [address], [place] [id number] Dec, [facility] [address] [id number] [address] [place] [address], [place] [id number] Dec, [facility] [address] [id number] [address] [place] [address], [place] [id number] Oct, [facility] [address] [id number] [address] [place] [id number] Oct, [facility] [address] [id number] [address] [place] [id number] Oct, [facility] [address] [id number] [address] [place] [id number] Oct, [facility] [address] [id number] [address] [place] [phone] Oct, [facility] [address] [id number] [address] [place] [phone] Oct, [facility] [address] [id number] [address] [place] [phone] Oct, [facility] [address] [id number] [address] [place] [phone] Oct, [facility] [address] [id number] [address] [place] [phone] Sep, [facility] [address] [id number] [address] [place] [phone] Sep, [facility] [address] [id number] [address] [place] [id number] Sep, [facility] [address] [id number] [address] [place] [id number] Sep, [facility] [address] [id number] [address] [place] [id number] Aug, [facility] [address] [id number] [address] [place] [id number] Jul, IMMUNIZATIONS No Known Immunizations SOCIAL HISTORY Never Assessed REASON FOR VISIT Referral PLAN OF CARE VITAL SIGNS MEDICATIONS Unknown Medications RESULTS No Results PROCEDURES No Known procedures INSTRUCTIONS MEDICATIONS ADMINISTERED No Known Medications MEDICAL (GENERAL) HISTORY Type Description Date Medical History seizures Medical History allergic rhinitis Medical History mood disorder Medical History back pain Surgical History No know Surgical history Hospitalization History Seizure activity - [facility]. 07/2018
--- OUTSIDE RECORDS SUMMARY | 2020-02-03 17:07 | XMS REPORT ---
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 77258039 Problem Bladder spasms N32.89 Active 79030 7006 Problem Anxiety F41.9 Active 46273552 Problem Seasonal allergic rhinitis due to other allergic trigger J30.89 Active [id number] ALLERGIES No Information ENCOUNTERS Encounter Location Date Diagnosis [facility] [address] [facility] [id number] [address] [place] [id number] 09 Feb, 2019 Acute midline low back pain without sciatica M54.5 [facility] [address] [facility] [id number] [address] [place] [id number] Feb, Seizures R56.9 [facility] [address] [facility] [id number] [address] [place] [id number] Jan, [facility] [address] [facility] [id number] [address] [place] [id number] 14 Jan, 2019 Bronchitis J40 and Pleurisy R09.1 [facility] [address] [facility] [id number] [address] [place] [id number] 12 Jan, 2019 Acute bronchitis, unspecifie d organism J20.9 and Fever R50.9 [facility] [address] [facility] [id number] [address] [place] [id number] 04 Jan, 2019 [facility] [address] [facility] [id number] [address] [place] [id number] Jan, Seizures R56.9 [facility] [address] [facility] [id number] [address] [place] [id number] Nov, [facility] [address] [place] [id number] [place] [id number] Nov, [facility] [address] [place] [id number] [place] [id number] Nov, Nonintractable absence epile psy without status epilepticus G40.A09 and Palpitations R00.2 [facility] [address] [place] [id number] [place] [id number] Nov, [facility] [address] [place] [id number] [address] [place] [id number] Oct, [facility] [address] [place] [id number] [place] [id number] Sep, [facility] [address] [address] Aug, Seizures R56.9 and Mood diso rder F39 [facility] [address] [place] [id number] [place] [id number] Jul, Dysuria R30.0 and Bladder sp asms N32.89 [place] [address] [place] [id number] [place] [id number] Jul, [facility] [address] [place] [id number] [place] [id number] March, Elevated liver enzymes R74.8 and Abnormal CBC R79.89 [facility] [address] [place] [id number] [place] [id number] March, Encounter for immunization Z 23 [facility] [address] [place] [id number] [place] [phone] March, [facility] [address] [place] [id number] [address] [place] [phone] March, [facility] [address] [place] [id number] [place] [phone] March, Elevated liver enzymes R74.8 and Abnormal CBC R79.89 [facility] [address] [id number] March, Anxiety F41.9 ; Bronchitis J 40 and Seasonal allergic rhinitis due to other allergic trigger J30.89 [facility] [address] [address] March, [facility] [address] [address] Feb, [facility] [address] [address] Feb, Pharyngitis due to other org anism J02.8 [place] [address] [address] Feb, Pharyngitis due to other org anism J02.8 [facility] Formerly named [facility] [address] [address] Feb, Sore throat J02.9 ; Fatigue, unspecified type R53.83 and Strep pharyngitis J02.0 [facility] Formerly named [facility] [address] [address] Feb, Acute nasopharyngitis J00 [facility] Formerly named [facility] [address] [address] Feb, Lower abdominal pain R10.30 [facility] Formerly named [facility] [address] [address] Feb, Bladder spasms N32.89 and Ur inary frequency R35.0 [facility] Formerly named [facility] [address] [address] Jan, Strep throat J02.0 [facility] Formerly named [facility] [address] [address] Dec, Seasonal allergic rhinitis, unspecified trigger J30.2 [place] [address] [place] [id number] [place] [address] Nov, Acute suppurative otitis med ia of both ears without spontaneous rupture of tympanic membranes, recurrence not specified H66.003 [facility] [place] [address] [address] Nov, Acute suppurative otitis med ia of both ears without spontaneous rupture of tympanic membranes, recurrence not specified H66.003 [facility] [place] [address] [address] Nov, Acute suppurative otitis med ia of both ears without spontaneous rupture of tympanic membranes, recurrence not specified H66.003 [place] [address] [address] Oct, [place] [address] [address] 21 Jul, 2017 Seizures R56.9 [place] [address] [address] 14 Jul, 2017 Seizures R56.9 ; Other chron ic pain G89.29 ; Pain in left ankle and joints of left foot M25.572 and Allergic rhinitis, unspecified allergic rhinitis trigger, unspecified rhinitis seasonality J30.9 [facility] [place] [address] [address] 07 Jul, 2017 Acute seasonal allergic rhin itis due to other allergen J30.89 [facility] [place] [address] [place] [id number] [place] [address] 02 Jun, 2017 Left foot pain M79.672 and L eft lateral ankle pain M25.572 [place] [address] [address] 06 Aug, 2016 Allergic rhinitis, unspecifi ed allergic rhinitis trigger, unspecified rhinitis seasonality J30.9 ; Low back pain M54.5 and Other chronic pain G89.29 [facility] [place] [address] [address] Jul, [facility] Formerly named [facility] [address] [place] [id number] [place] [id number] Jul, Low back pain M54.5 and Othe r chronic pain G89.29 [facility] [place] [address] [address] Jul, Acute maxillary sinusitis, r ecurrence not specified J01.00 [facility] Formerly named [facility] [address] [address] Jun, Cellulitis of left lower ext remity L03.116 [facility] [place] [address] [address] Apr, Wrist pain, left M25.532 [facility] [address] [address] March, Low back pain M54.5 ; Fever, unspecified R50.9 and Strep pharyngitis J02.0 [facility] [place] [address] [address] March, Hordeolum externum of left u pper eyelid H00.014 and Acute follicular conjunctivitis of left eye H10.012 [place] [address] [address] Jan, Folliculitis L73.9 [facility] [place] [address] [address] Jan, Screen for sexually transmit yayo diseases Z11.3 [place] [address] [address] Nov, [place] [address] [address] Nov, Gen idiopathic epilepsy, not intractable, 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 [facility] [place] [address] [address] 05 Nov, 2015 Malaise R53.81 ; Upper respi ratory infection J06.9 and Pharyngitis J02.9 [facility] [address] [facility] [id number] [address] [place] [address] 04 Nov, 2015 Acute pharyngitis, unspecifi ed J02.9 ; Acute upper respiratory infection, unspecified J06.9 ; Other viral agents as the cause of diseases classified elsewhere B97.89 and Allergic rhinitis J30.9 [facility] [address] [facility] [id number] [address] [place] [id number] 04 Oct, 2015 Testicular pain N50.8 [facility] [address] [facility] [id number] [address] [place] [address] 15 Jul, 2015 Sinusitis 473.9 [facility] [address] [place] [id number] [place] [id number] 12 Apr, 2015 Back pain 724.5 [facility] [address] [place] [id number] [address] [place] [id number] 11 Apr, 2015 [facility] [address] [place] [id number] [place] [id number] Feb, [facility] [address] [facility] [id number] [address] [place] [address] Feb, [facility] [address] [facility] [id number] [address] [place] [id number] Jan, [facility] [address] [place] [id number] [address] [place] [phone] Nov, [facility] [address] [facility] [id number] [address] [place] [id number] Nov, [facility] [address] [facility] [id number] [address] [place] [id number] Nov, [facility] [address] [place] [id number] [place] [id number] Nov, [facility] [address] [id number] [address] [place] [address], [place] [id number] Oct, [facility] [address] [id number] [address] [place] [address], [place] [id number] Oct, [facility] [address] [id number] [address] [place] [address], [place] [id number] Aug, [facility] [address] [id number] [address] [place] [address], [place] [id number] Aug, [facility] [address] [id number] [address] [place] [address], [place] [id number] Aug, [facility] [address] [id number] [address] [place] [address], [place] [address] Aug, [facility] [address] [id number] [address] [place] [address], [place] [address] Aug, [facility] [address] [id number] [address] [place] [address], [place] [id number] Aug, [facility] [address] [id number] [address] [place] [address], [place] [id number] Aug, [facility] [address] [id number] [address] [place] [address], [place] [id number] Aug, [facility] [address] [id number] [address] [place] [address], [place] [id number] Jun, [facility] [address] [id number] [address] [place] [address], [place] [id number] Jun, [facility] [address] [id number] [address] [place] [address], [place] [id number] Jun, [facility] [address] [id number] [address] [place] [address], [place] [id number] Jun, [facility] [address] [id number] [address] [place] [address], [place] [id number] Jun, [facility] [address] [id number] [address] [place] [address], [place] [id number] Jun, [facility] [address] [id number] [facility] [place] [address] Jun, [facility] [address] [id number] [address] [place] [address], [place] [id number] Jun, [facility] [address] [id number] [address] [place] [address], [place] [id number] Jun, [facility] [address] [id number] [address] [place] [address], [place] [address] Jun, [facility] [address] [id number] [address] [place] [address], [place] [id number] May, [facility] [address] [id number] [address] [place] [address], [place] [id number] May, [facility] [address] [id number] [address] [place] [address], [place] [id number] March, [facility] [address] [id number] [address] [place] [address], [place] [id number] March, [facility] [address] [id number] [address] [place] [address], [place] [id number] March, [facility] [address] [id number] [address] [place] [address], [place] [address] March, [facility] [address] [id number] [address] [place] [address], [place] [id number] Feb, [facility] [address] [id number] [address] [place] [address], [place] [id number] Feb, [facility] [address] [id number] [address] [place] [address], [place] [id number] Jan, [facility] [address] [id number] [address] [place] [address], [place] [id number] Jan, [facility] [address] [id number] [address] [place] [address], [place] [id number] Jan, [facility] [address] [id number] [address] [place] [address], [place] [address] Jan, [facility] [address] [id number] [address] [place] [address], [place] [id number] Dec, [facility] [address] [id number] [address] [place] [address], [place] [id number] 18 Dec, 2013 [facility] [address] [id number] [address] [place] [address], [place] [id number] 14 Dec, 2013 [facility] [address] [id number] [address] [place] [address], [place] [id number] Dec, [facility] [address] [id number] [address] [place] [address], [place] [id number] Dec, [facility] [address] [id number] [address] [place] [address], [place] [id number] Dec, [facility] [address] [id number] [address] [place] [address], [place] [address] Nov, [facility] [address] [id number] [address] [place] [address], [place] [address] Nov, [facility] [address] [id number] [address] [place] [address], [place] [id number] Nov, [facility] [address] [id number] [address] [place] [address], [place] [id number] Nov, [facility] [address] [id number] [address] [place] [address], [place] [id number] Nov, [facility] [address] [id number] [address] [place] [address], [place] [id number] Nov, [facility] [address] [id number] [address] [place] [address], [place] [address] Nov, [facility] [address] [id number] [address] [place] [address], [place] [id number] Nov, [facility] [address] [id number] [address] [place] [address], [place] [id number] Nov, [facility] [address] [id number] [address] [place] [address], [place] [id number] Nov, [facility] [address] [id number] [address] [place] [address], [place] [id number] Nov, [facility] [address] [id number] [address] [place] [address], [place] [id number] Nov, [facility] [address] [id number] [address] [place] [address], [place] [id number] Oct, [facility] [address] [id number] [address] [place] [address], [place] [id number] Oct, [facility] [address] [id number] [address] [place] [address], [place] [id number] Oct, [facility] [address] [id number] [address] [place] [address], [place] [id number] Oct, [facility] [address] [id number] [address] [place] [address], [place] [id number] Sep, [facility] [address] [id number] [address] [place] [address], [place] [id number] Sep, [facility] [address] [id number] [address] [place] [id number] Sep, [facility] [address] [id number] [address] [place] [id number] Sep, [facility] [address] [id number] [address] [place] [id number] Sep, [facility] [address] [id number] [address] [place] [address], [place] [id number] Sep, [facility] [address] [id number] [address] [place] [address], [place] [id number] Sep, [facility] [address] [id number] [address] [place] [id number] Sep, [facility] [address] [id number] [address] [place] [id number] 30 Jul, 2013 [facility] [address] [id number] [address] [place] [address], [place] [id number] Jul, [facility] [address] [id number] [address] [place] [address], [place] [id number] May, [facility] [address] [id number] [address] [place] [address], [place] [id number] Apr, [facility] [address] [id number] [address] [place] [address], [place] [id number] 24 Apr, 2013 [facility] [address] [id number] [address] [place] [address], [place] [id number] Apr, [facility] [address] [id number] [address] [place] [address], [place] [address] Apr, [facility] [address] [id number] [address] [place] [address], [place] [id number] Apr, [facility] [address] [id number] [address] [place] [address], [place] [id number] Apr, [facility] [address] [id number] [address] [place] [address], [place] [id number] Apr, [facility] [address] [id number] [address] [place] [address], [place] [id number] March, [facility] [address] [id number] [address] [place] [address], [place] [id number] March, [facility] [address] [id number] [address] [place] [address], [place] [id number] Jan, [facility] [address] [id number] [address] [place] [address], [place] [address] Dec, [facility] [address] [id number] [address] [place] [address], [place] [address] Nov, [facility] [address] [id number] [address] [place] [address], [place] [address] Nov, [facility] [address] [id number] [facility] [place] [address] Oct, [facility] [address] [id number] [address] [place] [address], [place] [id number] Oct, [facility] [address] [id number] [address] [place] [address], [place] [id number] Oct, [facility] [address] [id number] [address] [place] [address], [place] [id number] Oct, [facility] [address] [id number] [address] [place] [address], [place] [id number] Oct, [facility] [address] [id number] [address] [place] [address], [place] [id number] Oct, [facility] [address] [id number] [address] [place] [address], [place] [id number] Sep, [facility] [address] [id number] [address] [place] [address], [place] [id number] Sep, [facility] [address] [id number] [address] [place] [address], [place] [id number] Sep, [facility] [address] [id number] [address] [place] [address], [place] [id number] Sep, [facility] [address] [id number] [address] [place] [address], [place] [id number] Sep, [facility] [address] [id number] [address] [place] [address], [place] [id number] Sep, [facility] [address] [id number] [address] [place] [address], [place] [id number] Sep, [facility] [address] [id number] [address] [place] [address], [place] [id number] Sep, [facility] [address] [id number] [address] [place] [address], [place] [id number] Sep, [facility] [address] [id number] [address] [place] [address] [address] Sep, [facility] [address] [id number] [address] [place] [address], [place] [id number] Sep, [facility] [address] [id number] [address] [place] [address], [place] [id number] Sep, [facility] [address] [id number] [address] [place] [address], [place] [id number] Aug, [facility] [address] [id number] [address] [place] [address], [place] [id number] Aug, [facility] [address] [id number] [address] [place] [address], [place] [id number] Aug, [facility] [address] [id number] [address] [place] [address], [place] [id number] Aug, [facility] [address] [id number] [address] [place] [address], [place] [id number] Aug, [facility] [address] [id number] [address] [place] [address], [place] [id number] Aug, [facility] [address] [id number] [address] [place] [address], [place] [id number] Aug, [facility] [address] [id number] [address] [place] [address], [place] [id number] Aug, [facility] [address] [id number] [address] [place] [id number] Aug, [facility] [address] [id number] [address] [place] [id number] Aug, [facility] [address] [id number] [address] [place] [address], [place] [id number] Jul, [facility] [address] [id number] [address] [place] [id number] Jul, [facility] [address] [id number] [address] [place] [address], [place] [id number] Jun, [facility] [address] [id number] [address] [place] [address], [place] [id number] Jun, [facility] [address] [id number] [address] [place] [address], [place] [id number] Jun, [facility] [address] [id number] [address] [place] [address], [place] [id number] May, [facility] [address] [id number] [address] [place] [address], [place] [id number] May, [facility] [address] [id number] [address] [place] [address], [place] [id number] May, [facility] [address] [id number] [address] [place] [address], [place] [id number] May, [facility] [address] [id number] [address] [place] [address], [place] [id number] Apr, [facility] [address] [id number] [address] [place] [address], [place] [id number] Apr, [facility] [address] [id number] [address] [place] [address], [place] [id number] Apr, [facility] [address] [id number] [address] [place] [address], [place] [id number] Apr, [facility] [address] [id number] [address] [place] [address], [place] [id number] March, [facility] [facility] [address] [id number] [address] [place] [address], [place] [id number] Jan, [facility] [address] [id number] [address] [place] [address], [place] [id number] Dec, [facility] [address] [id number] [address] [place] [address], [place] [id number] Dec, [facility] [address] [id number] [address] [place] [address], [place] [id number] Oct, [facility] [address] [id number] [address] [place] [address], [place] [id number] Oct, [facility] [address] [id number] [address] [place] [id number] 23 Oct, 2011 [facility] [address] [id number] [address] [place] [id number] Oct, [facility] [address] [id number] [address] [place] [id number] 15 Oct, 2011 [facility] [address] [id number] [address] [place] [id number] Oct, [facility] [address] [id number] [address] [place] [id number] Oct, [facility] [address] [id number] [address] [place] [id number] Oct, [facility] [address] [id number] [address] [place] [id number] Sep, [facility] [address] [id number] [address] [place] [id number] Sep, [facility] [address] [id number] [address] [place] [id number] Sep, [facility] [address] [id number] [address] [place] [id number] Sep, [facility] [address] [id number] [address] [place] [id number] Aug, [facility] [address] [id number] [address] [place] [id number] 15 Jul, 2011 IMMUNIZATIONS No Known Immunizations SOCIAL HISTORY Never Assessed REASON FOR VISIT EMR-[facility] [place]AN OF CARE VITAL SIGNS MEDICATIONS No Known Medications RESULTS No Results PROCEDURES No Known procedures INSTRUCTIONS MEDICATIONS ADMINISTERED No Known Medications MEDICAL (GENERAL) HISTORY Type Description Date Medical History seizures Medical History allergic rhinitis Medical History mood disorder Medical History back pain Surgical History tonsillectomy Hospitalization History Seizure activity - [facility]. 07/2018
--- OUTSIDE RECORDS SUMMARY | 2020-02-03 17:07 | XMS REPORT ---
Author Author Derek KEITH Organization [facility] [place] Address [address] [place] [address] Care Team Providers Care Manager Pet Name Role Phone ARMANI KEITH Unavailable PROBLEMS Type Condition ICD9-CM Code ICA29-AY Code Onset Dates Condition S tatus SNOMED Code Problem Mood disorder F39 Active 481176 05 Problem Anxiety F41.9 Active 87046069 Problem Seasonal allergic rhinitis due to other allergic trigger J30.89 Active 438197196 Problem Bladder spasms N32.89 Active 98822 7006 ALLERGIES Substance Reaction Event Type Date Status Sulfamethoxazole-TMP DS other Drug Allergy Aug, Acti ve Cephalexin rash Drug Allergy Aug, Active Amoxicillin Unknown Drug Allergy Aug, Active ENCOUNTERS Encounter Location Date Diagnosis [place] [id number] [place] [id number] [place] [address] Aug, Seizures R56.9 and Mood diso rder F39 [place] [address] [place] [id number] [place] [address] Jul, Dysuria R30.0 and Bladder sp asms N32.89 [place] [address] [place] [id number] [place] [address] Jul, [place] [address] [place] [id number] [place] [address] March, Elevated liver enzymes R74.8 and Abnormal CBC R79.89 [place] [address] [place] [id number] [address] [place] [address] March, Encounter for immunization Z 23 [place] [address] [place] [id number] [address] [place] [address] March, [place] [address] [address] March, [facility] [place] [address] [facility] [id number] [address] [place] [address] March, Elevated liver enzymes R74.8 and Abnormal CBC R79.89 [facility] [place] [address] [facility] [id number] [address] [place] [address] March, Anxiety F41.9 ; Bronchitis J 40 and Seasonal allergic rhinitis due to other allergic trigger J30.89 [facility] [place] [address] [facility] [id number] [address] [place] [address] March, [facility] [place] [address] [facility] [id number] [address] [place] [address] Feb, [facility] [place] [address] [facility] [id number] [address] [place] [address] Feb, Pharyngitis due to other org anism J02.8 [facility] [place] [address] [place] [id number] [address] [place] [address] Feb, Pharyngitis due to other org anism J02.8 [facility] [address] [place] [id number] [address] [place] [address] Feb, Sore throat J02.9 ; Fatigue, unspecified type R53.83 and Strep pharyngitis J02.0 [facility] [address] [facility] [id number] [address] [place] [address] Feb, Acute nasopharyngitis J00 [facility] [address] [facility] [id number] [address] [place] [address] Feb, Lower abdominal pain R10.30 [facility] [address] [facility] [id number] [address] [place] [address] Feb, Bladder spasms N32.89 and Ur inary frequency R35.0 [facility] [address] [facility] [id number] [address] [place] [address] Jan, Strep throat J02.0 [facility] [address] [address] Dec, Seasonal allergic rhinitis, unspecified trigger J30.2 [place] [address] [address] Nov, Acute suppurative otitis med ia of both ears without spontaneous rupture of tympanic membranes, recurrence not specified H66.003 [facility] [place] [address] [address] Nov, Acute suppurative otitis med ia of both ears without spontaneous rupture of tympanic membranes, recurrence not specified H66.003 [facility] [place] [address] [address] Nov, Acute suppurative otitis med ia of both ears without spontaneous rupture of tympanic membranes, recurrence not specified H66.003 [place] [address] [address] Oct, [place] [address] [address] 21 Jul, 2017 Seizures R56.9 [place] [address] [address] 14 Jul, 2017 Seizures R56.9 ; Other chron ic pain G89.29 ; Pain in left ankle and joints of left foot M25.572 and Allergic rhinitis, unspecified allergic rhinitis trigger, unspecified rhinitis seasonality J30.9 [facility] [place] [address] [address] 07 Jul, 2017 Acute seasonal allergic rhin itis due to other allergen J30.89 [facility] [place] [address] [address] 02 Jun, 2017 Left foot pain M79.672 and L eft lateral ankle pain M25.572 [place] [address] [address] Aug, Allergic rhinitis, unspecifi ed allergic rhinitis trigger, unspecified rhinitis seasonality J30.9 ; Low back pain M54.5 and Other chronic pain G89.29 [facility] N [address] [address] Jul, [facility] N [address] [address] Jul, Low back pain M54.5 and Othe r chronic pain G89.29 [facility] [address] [place] [address] Jul, Acute maxillary sinusitis, r ecurrence not specified J01.00 [facility] [address] [place] [address] Jun, Cellulitis of left lower ext remity L03.116 [facility] [address] [address] Apr, Wrist pain, left M25.532 [facility] [address] [address] March, Low back pain M54.5 ; Fever, unspecified R50.9 and Strep pharyngitis J02.0 [facility] [address] [address] March, Hordeolum externum of left u pper eyelid H00.014 and Acute follicular conjunctivitis of left eye H10.012 [place] [address] [address] Jan, Folliculitis L73.9 [facility] [address] [address] Jan, Screen for sexually transmit yayo diseases Z11.3 [place] [address] [address] Nov, [place] [address] [address] Nov, Gen idiopathic epilepsy, not intractable, 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 [facility] WALK IN [facility] [address] [place] [id number] [address] [place] [address] 05 Nov, 2015 Malaise R53.81 ; Upper respi ratory infection J06.9 and Pharyngitis J02.9 [facility] WALK IN [facility] [address] [place] [id number] [address] [place] [address] Nov, Acute pharyngitis, unspecifi ed J02.9 ; Acute upper respiratory infection, unspecified J06.9 ; Other viral agents as the cause of diseases classified elsewhere B97.89 and Allergic rhinitis J30.9 [facility] [address] [place] [id number] [address] [place] [address] 04 Oct, 2015 Testicular pain N50.8 [place] [address] [place] [id number] [place] [address] 15 Jul, 2015 Sinusitis 473.9 [facility] [place] [address] [place] [id number] [place] [address] 12 Apr, 2015 Back pain 724.5 [place] [address] [place] [id number] [place] [address] 11 Apr, 2015 [facility] [place] [address] [place] [address] 14 Feb, 2015 [facility] [place] [address] [place] [address] 13 Feb, 2015 [facility] [place] [address] [place] [id number] [address] [place] [address] 04 Jan, 2015 [facility] [place] [address] [place] [id number] [place] [address] 14 Nov, 2014 [facility] [place] [address] [place] [id number] [address] [place] [address] 14 Nov, 2014 [facility] [place] [address] [place] [id number] [place] [address] Nov, [facility] [address] [id number] [address] [place] [address], [place] [address] Nov, [facility] [address] [id number] [address] [place] [address], [place] [address] Oct, [facility] [address] [id number] [address] [place] [address], [place] [address] Oct, [facility] [address] [id number] [address] [place] [address], [place] [address] Aug, [facility] [address] [id number] [address] [place] [address], [place] [address] Aug, [facility] [address] [id number] [address] [place] [address], [place] [address] Aug, [facility] [address] [id number] [address] [place] [address], [place] [address] Aug, [facility] [address] [id number] [address] [place] [address], [place] [address] Aug, [facility] [address] [id number] [address] [place] [address], [place] [address] Aug, [facility] [address] [id number] [address] [place] [address], [place] [address] Aug, [facility] [address] [id number] [address] [place] [address], [place] [address] Aug, [facility] [address] [id number] [address] [place] [address] Jun, [facility] [address] [id number] [address] [place] [address], [place] [address] Jun, [facility] [address] [id number] [address] [place] [address], [place] [address] Jun, [facility] [address] [id number] [address] [place] [address], [place] [address] Jun, [facility] [address] [id number] [address] [place] [address], [place] [address] Jun, [facility] [address] [id number] [address] [place] [address], [place] [address] Jun, [facility] [address] [id number] [address] [place] [address], [place] [address] Jun, [facility] [address] [id number] [address] [place] [address], [place] [address] Jun, [facility] [address] [id number] [address] [place] [address], [place] [address] Jun, [facility] [address] [id number] [address] [place] [address], [place] [address] Jun, [facility] [address] [id number] [address] [place] [address], [place] [address] May, [facility] [address] [id number] [address] [place] [address], [place] [address] May, [facility] [address] [id number] [address] [place] [address], [place] [address] March, [facility] [address] [id number] [address] [place] [address], [place] [address] March, [facility] [address] [id number] [address] [place] [address], [place] [address] March, [facility] [address] [id number] [address] [place] [address], [place] [address] March, [facility] [address] [id number] [address] [place] [address], [place] [address] Feb, [facility] [address] [id number] [address] [place] [address], [place] [address] Feb, [facility] [address] [id number] [address] [place] [address], [place] [address] Jan, [facility] [address] [id number] [address] [place] [address], [place] [address] Jan, [facility] [address] [id number] [address] [place] [address], [place] [address] Jan, [facility] [address] [id number] [address] [place] [address], [place] [address] Jan, [facility] [address] [id number] [address] [place] [address], [place] [address] Dec, [facility] [address] [id number] [address] [place] [address], [place] [address] Dec, [facility] [address] [id number] [address] [place] [address], [place] [address] Dec, [facility] [address] [id number] [address] [place] [address], [place] [address] Dec, [facility] [address] [id number] [address] [place] [address], [place] [address] Dec, [facility] [address] [id number] [address] [place] [address], [place] [address] Dec, [facility] [address] [id number] [address] [place] [address], [place] [address] Nov, [facility] [address] [id number] [address] [place] [address], [place] [address] Nov, [facility] [address] [id number] [address] [place] [address], [place] [address] Nov, [facility] [address] [id number] [address] [place] [address], [place] [address] Nov, [facility] [address] [id number] [address] [place] [address], [place] [address] Nov, [facility] [address] [id number] [address] [place] [address], [place] [address] Nov, [facility] [address] [id number] [address] [place] [address], [place] [address] Nov, [facility] [address] [id number] [address] [place] [address], [place] [address] Nov, [facility] [address] [id number] [address] [place] [address], [place] [address] Nov, [facility] [address] [id number] [address] [place] [address], [place] [address] Nov, [facility] [address] [id number] [address] [place] [address], [place] [address] Nov, [facility] [address] [id number] [address] [place] [address], [place] [address] Nov, [facility] [address] [id number] [address] [place] [address], [place] [address] Oct, [facility] [address] [id number] [address] [place] [address], [place] [address] Oct, [facility] [address] [id number] [address] [place] [address], [place] [address] Oct, [facility] [address] [id number] [address] [place] [address], [place] [address] Oct, [facility] [address] [id number] [address] [place] [address], [place] [address] Sep, [facility] [address] [id number] [address] [place] [address], [place] [address] Sep, [facility] [address] [id number] [address] [place] [address], [place] [address] Sep, [facility] [address] [id number] [address] [place] [address], [place] [address] Sep, [facility] [address] [id number] [address] [place] [address], [place] [address] Sep, [facility] [address] [id number] [address] [place] [address], [place] [address] Sep, [facility] [address] [id number] [address] [place] [address], [place] [address] 18 Sep, 2013 [facility] [address] [id number] [address] [place] [address], [place] [address] Sep, [facility] [address] [id number] [address] [place] [address], [place] [address] 30 Jul, 2013 [facility] [address] [id number] [address] [place] [address], [place] [address] Jul, [facility] [address] [id number] [address] [place] [address], [place] [address] May, [facility] [address] [id number] [address] [place] [address], [place] [address] Apr, [facility] [address] [id number] [address] [place] [address], [place] [address] 24 Apr, 2013 [facility] [address] [id number] [address] [place] [address], [place] [address] Apr, [facility] [address] [id number] [address] [place] [address], [place] [address] Apr, [facility] [address] [id number] [address] [place] [address], [place] [address] Apr, [facility] [address] [id number] [address] [place] [address], [place] [address] Apr, [facility] [address] [id number] [address] [place] [address], [place] [address] Apr, [facility] [address] [id number] [address] [place] [address], [place] [address] March, [facility] [address] [id number] [address] [place] [address], [place] [address] March, [facility] [address] [id number] [address] [place] [address], [place] [address] Jan, [facility] [address] [id number] [address] [place] [address], [place] [address] Dec, [facility] [address] [id number] [address] [place] [address], [place] [address] Nov, [facility] [address] [id number] [address] [place] [address], [place] [address] Nov, [facility] [address] [id number] [address] [place] [address], [place] [address] Oct, [facility] [address] [id number] [address] [place] [address], [place] [address] Oct, [facility] [address] [id number] [address] [place] [address], [place] [address] Oct, [facility] [address] [id number] [address] [place] [address], [place] [address] Oct, [facility] [address] [id number] [address] [place] [address], [place] [address] Oct, [facility] [address] [id number] [address] [place] [address], [place] [address] Oct, [facility] [address] [id number] [address] [place] [address], [place] [address] Sep, [facility] [address] [id number] [address] [place] [address], [place] [address] Sep, [facility] [address] [id number] [address] [place] [address], [place] [address] Sep, [facility] [address] [id number] [address] [place] [address], [place] [address] Sep, [facility] [address] [id number] [address] [place] [address], [place] [address] Sep, [facility] [address] [id number] [address] [place] [address], [place] [address] Sep, [facility] [address] [id number] [address] [place] [address], [place] [address] Sep, [facility] [address] [id number] [address] [place] [address], [place] [address] Sep, [facility] [address] [id number] [address] [place] [address], [place] [address] Sep, [facility] [address] [id number] [address] [place] [address], [place] [address] Sep, [facility] [address] [id number] [address] [place] [address], [place] [address] Sep, [facility] [address] [id number] [address] [place] [address], [place] [address] Sep, [facility] [address] [id number] [address] [place] [address], [place] [address] Aug, [facility] [address] [id number] [address] [place] [address], [place] [address] Aug, [facility] [address] [id number] [address] [place] [address], [place] [address] Aug, [facility] [address] [id number] [address] [place] [address], [place] [address] Aug, [facility] [address] [id number] [address] [place] [address], [place] [address] Aug, [facility] [address] [id number] [address] [place] [address], [place] [address] Aug, [facility] [address] [id number] [address] [place] [address], [place] [address] Aug, [facility] [address] [id number] [address] [place] [address], [place] [address] Aug, [facility] [address] [id number] [address] [place] [address] Aug, [facility] [address] [id number] [address] [place] [address], [place] [address] Aug, [facility] [address] [id number] [address] [place] [address], [place] [address] 24 Jul, 2012 [facility] [address] [id number] [address] [place] [address], [place] [address] Jul, [facility] [address] [id number] [address] [place] [address], [place] [address] Jun, [facility] [address] [id number] [address] [place] [address], [place] [address] Jun, [facility] [address] [id number] [address] [place] [address], [place] [address] Jun, [facility] [address] [id number] [address] [place] [address], [place] [address] May, [facility] [address] [id number] [address] [place] [address], [place] [address] May, [facility] [address] [id number] [address] [place] [address], [place] [address] May, [facility] [address] [id number] [address] [place] [address], [place] [address] May, [facility] [address] [id number] [address] [place] [address], [place] [address] Apr, [facility] [address] [id number] [address] [place] [address], [place] [address] Apr, [facility] [address] [id number] [address] [place] [address], [place] [address] Apr, [facility] [address] [id number] [address] [place] [address], [place] [address] Apr, [facility] [address] [id number] [address] [place] [address], [place] [address] March, [facility] [address] [id number] [address] [place] [address], [place] [address] Jan, [facility] [address] [id number] [address] [place] [address], [place] [address] Dec, [facility] [address] [id number] [address] [place] [address], [place] [address] Dec, [facility] [address] [id number] [address] [place] [address] 27 Oct, 2011 [facility] [place] [address] [id number] [address] [place] [address] 27 Oct, 2011 [facility] [place] [address] [id number] [address] [place] [address] Oct, [facility] [facility] [place] [address] [id number] [address] [place] [id number] Oct, [facility] [place] [address] [id number] [address] [place] [phone] 15 Oct, 2011 [facility] [place] [address] [id number] [address] [place] [phone] Oct, [facility] [place] [address] [id number] [address] [place] [phone] Oct, [facility] [place] [address] [id number] [address] [place] [phone] Oct, [facility] [place] [address] [id number] [address] [place] [phone] Sep, [facility] [place] [address] [id number] [address] [place] [phone] Sep, [facility] [place] [address] [id number] [address] [place] [phone] Sep, [facility] [place] [address] [id number] [address] [place] [phone] Sep, [facility] [place] [address] [id number] [address] [place] [phone] Aug, [facility] [place] [address] [id number] [address] [place] [phone] Jul, IMMUNIZATIONS No Known Immunizations SOCIAL HISTORY Never Assessed REASON FOR VISIT 2 mo follow up, PT reports random moments of bladder spasms, pt notes has been d oing well. PT notes frequent urination -Arpit EUCEDA PLAN OF CARE VITAL SIGNS Height 74 in 2018-08-23 Weight 302.9 lbs 2018-08-23 Temperature 98.2 degrees Fahrenheit 2018-08-23 Heart Rate 105 bpm 2018-08-23 Respiratory Rate 20 2018-08-23 Oximetry 99 % 2018-08-23 BMI 38.89 kg/m2 2018-08-23 Blood pressure systolic 122 mmHg 2018-08-23 Blood pressure diastolic 76 mmHg 2018-08-23 MEDICATIONS Medication Instructions Dosage Frequency Start Date End Date Duration S tatus Pantoprazole Sodium 20 mg Orally Once a day 1 tablet 24h 30 Active Ciprofloxacin HCl 250 MG Orally every 12 hrs 1 tablet 12h 3 day(s) Not-Taking ProAir HFA 108 (90 Base) MCG/ACT Inhalation every 6 hrs 2 puffs as needed 6h March, Active Naproxen 500 MG Orally every 12 hrs 1 tablet as needed 12h Aug, 016 Active Nortriptyline HCl 25 MG Orally Once a day 1 capsule 24h Aug, 30 day(s) Active Depakote ER 500 mg Orally 2 times a day 2 tablets 12h Active Flonase 50 MCG/ACT Nasally Once a day 1 spray in each nostril 24h Feb, 30 day(s) Active EPINEPHrine 0.3 MG/0.3ML Injection 1 time as needed 0.3 mg IM Active RESULTS No Results PROCEDURES No Known procedures INSTRUCTIONS MEDICATIONS ADMINISTERED No Known Medications MEDICAL (GENERAL) HISTORY Type Description Date Medical History seizures Medical History allergic rhinitis Medical History mood disorder Medical History back pain Surgical History No know Surgical history Hospitalization History Seizure activity - [facility] ER. 07/2018
--- OUTSIDE RECORDS SUMMARY | 2020-02-03 17:08 | XMS REPORT ---
Author Author Derek KEITH Organization [facility] Address [address] [place] [address] Care Team Providers Care Family Nurse Practitioner Name Role Phone ARMANI KEITH Unavailable PROBLEMS Type Condition ICD9-CM Code WFM61-SA Code Onset Dates Condition S tatus SNOMED Code Problem Anxiety F41.9 Active 89831311 Problem Seasonal allergic rhinitis due to other allergic trigger J30.89 Active 406918876 Problem Bladder spasms N32.89 Active 10328 7006 ALLERGIES No Information ENCOUNTERS Encounter Location Date Diagnosis [id number] [facility] [id number] [address] [place] [address] March, Elevated liver enzymes R74.8 and Abnormal CBC R79.89 [facility] [address] [facility] [id number] [address] [place] [address] March, Encounter for immunization Z 23 [facility] [address] [facility] [id number] [address] [place] [address] March, [facility] [address] [facility] [id number] [address] [place] [address] March, [facility] [address] [facility] [id number] [address] [place] [address] March, Elevated liver enzymes R74.8 and Abnormal CBC R79.89 [facility] [address] [facility] [id number] [address] [place] [address] March, Anxiety F41.9 ; Bronchitis J 40 and Seasonal allergic rhinitis due to other allergic trigger J30.89 [facility] [address] [facility] [id number] [address] [place] [address] March, [facility] [address] [facility] [id number] [address] [place] [address] Feb, [place] [address] [address] Feb, Pharyngitis due to other org anism J02.8 [place] [address] [address] Feb, Pharyngitis due to other org anism J02.8 [facility] [address] [address] Feb, Sore throat J02.9 ; Fatigue, unspecified type R53.83 and Strep pharyngitis J02.0 [facility] [address] [address] Feb, Acute nasopharyngitis J00 [facility] [place] [address] [address] Feb, Lower abdominal pain R10.30 [facility] [place] [address] [address] Feb, Bladder spasms N32.89 and Ur inary frequency R35.0 [facility] [place] [address] [address] Jan, Strep throat J02.0 [facility] [place] [address] [address] Dec, Seasonal allergic rhinitis, unspecified trigger J30.2 [place] [address] [address] Nov, Acute suppurative otitis med ia of both ears without spontaneous rupture of tympanic membranes, recurrence not specified H66.003 [facility] N [address] [address] Nov, Acute suppurative otitis med ia of both ears without spontaneous rupture of tympanic membranes, recurrence not specified H66.003 [facility] [address] [place] [address] Nov, Acute suppurative otitis med ia of both ears without spontaneous rupture of tympanic membranes, recurrence not specified H66.003 [place] [address] [address] Oct, [place] [address] [address] 21 Jul, 2017 Seizures R56.9 [place] [address] [address] 14 Jul, 2017 Seizures R56.9 ; Other chron ic pain G89.29 ; Pain in left ankle and joints of left foot M25.572 and Allergic rhinitis, unspecified allergic rhinitis trigger, unspecified rhinitis seasonality J30.9 [facility] [place] [address] [address] 07 Jul, 2017 Acute seasonal allergic rhin itis due to other allergen J30.89 [facility] [place] [address] [address] Jun, Left foot pain M79.672 and L eft lateral ankle pain M25.572 [place] [address] [address] Aug, Allergic rhinitis, unspecifi ed allergic rhinitis trigger, unspecified rhinitis seasonality J30.9 ; Low back pain M54.5 and Other chronic pain G89.29 [facility] N [address] [address] Jul, [facility] N [address] [address] 12 Jul, 2016 Low back pain M54.5 and Othe r chronic pain G89.29 [facility] [place] [address] [address] 09 Jul, 2016 Acute maxillary sinusitis, r ecurrence not specified J01.00 [facility] [address] [address] Jun, Cellulitis of left lower ext remity L03.116 [facility] [place] [address] [address] Apr, Wrist pain, left M25.532 [facility] [place] [address] [address] March, Low back pain M54.5 ; Fever, unspecified R50.9 and Strep pharyngitis J02.0 [facility] [place] [address] [address] March, Hordeolum externum of left u pper eyelid H00.014 and Acute follicular conjunctivitis of left eye H10.012 [place] [address] [address] Jan, Folliculitis L73.9 [facility] [place] [address] [address] Jan, Screen for sexually transmit yayo diseases Z11.3 [place] [address] [address] Nov, [place] [address] [address] Nov, Gen idiopathic epilepsy, not intractable, 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 [facility] [place] [address] [address] Nov, Malaise R53.81 ; Upper respi ratory infection J06.9 and Pharyngitis J02.9 [facility] [place] [address] [address] Nov, Acute pharyngitis, unspecifi ed J02.9 ; Acute upper respiratory infection, unspecified J06.9 ; Other viral agents as the cause of diseases classified elsewhere B97.89 and Allergic rhinitis J30.9 [facility] [address] [id number] [address] [place] [address] 04 Oct, 2015 Testicular pain N50.8 [facility] [address] [id number] [address] [place] [address] 15 Jul, 2015 Sinusitis 473.9 [facility] [address] [id number] [address] [place] [address] 12 Apr, 2015 Back pain 724.5 [facility] [address] [id number] [address] [place] [address] 11 Apr, 2015 [facility] [address] [id number] [address] [place] [address] Feb, [facility] [address] [id number] [address] [place] [address] Feb, [facility] [address] [id number] [address] [place] [address] Jan, [facility] [address] [id number] [address] [place] [address] Nov, [facility] [address] [id number] [address] [place] [address] Nov, [facility] [address] [id number] [address] [place] [address] Nov, [facility] [address] [id number] [address] [place] [address] Nov, [facility] [address] [id number] [address] [place] [address] Oct, [facility] [address] [id number] [address] [place] [address] Oct, [facility] [address] [id number] [address] [place] [address] Aug, [facility] [address] [id number] [address] [place] [address] Aug, [facility] [address] [id number] [facility] [place] [address] Aug, [facility] [address] [id number] [facility] [place] [address] Aug, [facility] [address] [id number] [facility] [place] [address] Aug, [facility] [address] [id number] [address] [place] [address], [place] [address] Aug, [facility] [address] [id number] [address] [place] [address], [place] [address] Aug, [facility] [address] [id number] [address] [place] [address], [place] [address] Aug, [facility] [address] [id number] [address] [place] [address], [place] [address] Jun, [facility] [address] [id number] [address] [place] [address], [place] [address] Jun, [facility] [address] [id number] [address] [place] [address], [place] [address] Jun, [facility] [address] [id number] [address] [place] [address], [place] [address] Jun, [facility] [address] [id number] [address] [place] [address], [place] [address] Jun, [facility] [address] [id number] [address] [place] [address], [place] [address] Jun, [facility] [address] [id number] [address] [place] [address], [place] [address] Jun, [facility] [address] [id number] [address] [place] [address], [place] [address] Jun, [facility] [address] [id number] [address] [place] [address], [place] [address] Jun, [facility] [address] [id number] [address] [place] [address], [place] [address] Jun, [facility] [address] [id number] [address] [place] [address], [place] [address] May, [facility] [address] [id number] [address] [place] [address], [place] [address] May, [facility] [address] [id number] [address] [place] [address], [place] [address] March, [facility] [address] [id number] [address] [place] [address], [place] [address] March, [facility] [address] [id number] [address] [place] [address], [place] [address] March, [facility] [address] [id number] [address] [place] [address], [place] [address] March, [facility] [address] [id number] [address] [place] [address], [place] [address] Feb, [facility] [address] [id number] [address] [place] [address], [place] [address] Feb, [facility] [address] [id number] [address] [place] [address], [place] [address] Jan, [facility] [address] [id number] [address] [place] [address], [place] [address] Jan, [facility] [address] [id number] [address] [place] [address], [place] [address] Jan, [facility] [address] [id number] [address] [place] [address], [place] [address] Jan, [facility] [address] [id number] [address] [place] [address], [place] [address] Dec, [facility] [address] [id number] [address] [place] [address], [place] [address] Dec, [facility] [address] [id number] [address] [place] [address], [place] [address] Dec, [facility] [address] [id number] [address] [place] [address], [place] [address] 14 Dec, 2013 [facility] [address] [id number] [address] [place] [address], [place] [address] 11 Dec, 2013 [facility] [address] [id number] [address] [place] [address], [place] [id number] 11 Dec, 2013 [facility] [address] [id number] [address] [place] [address], [place] [address] Nov, [facility] [address] [id number] [address] [place] [address], [place] [address] Nov, [facility] [address] [id number] [address] [place] [address], [place] [address] Nov, [facility] [address] [id number] [address] [place] [address], [place] [address] Nov, [facility] [address] [id number] [address] [place] [address], [place] [address] Nov, [facility] [address] [id number] [address] [place] [address], [place] [address] Nov, [facility] [address] [id number] [address] [place] [address], [place] [address] Nov, [facility] [address] [id number] [address] [place] [address], [place] [address] Nov, [facility] [address] [id number] [address] [place] [address], [place] [address] Nov, [facility] [address] [id number] [address] [place] [address], [place] [address] Nov, [facility] [address] [id number] [address] [place] [address], [place] [address] Nov, [facility] [address] [id number] [address] [place] [address], [place] [address] Nov, [facility] [address] [id number] [address] [place] [address], [place] [address] Oct, [facility] [address] [id number] [address] [place] [address], [place] [address] Oct, [facility] [address] [id number] [address] [place] [address], [place] [address] Oct, [facility] [address] [id number] [address] [place] [address], [place] [address] Oct, [facility] [address] [id number] [address] [place] [address], [place] [address] Sep, [facility] [address] [id number] [address] [place] [address], [place] [address] Sep, [facility] [address] [id number] [address] [place] [address], [place] [address] Sep, [facility] [address] [id number] [address] [place] [address], [place] [address] Sep, [facility] [address] [id number] [address] [place] [address], [place] [address] Sep, [facility] [address] [id number] [address] [place] [address], [place] [address] Sep, [facility] [address] [id number] [address] [place] [address], [place] [address] Sep, [facility] [address] [id number] [address] [place] [address], [place] [address] Sep, [facility] [address] [id number] [address] [place] [address], [place] [address] 30 Jul, 2013 [facility] [address] [id number] [address] [place] [address], [place] [address] Jul, [facility] [address] [id number] [address] [place] [address], [place] [address] May, [facility] [address] [id number] [address] [place] [address], [place] [address] Apr, [facility] [address] [id number] [address] [place] [address] [place] [id number] 24 Apr, 2013 [facility] [address] [id number] [address] [place] [address], [place] [address] 20 Apr, 2013 [facility] [address] [id number] [address] [place] [address], [place] [address] Apr, [facility] [address] [id number] [address] [place] [address], [place] [address] Apr, [facility] [address] [id number] [address] [place] [address], [place] [address] 10 Apr, 2013 [facility] [address] [id number] [address] [place] [address], [place] [address] Apr, [facility] [address] [id number] [address] [place] [address], [place] [address] March, [facility] [address] [id number] [address] [place] [address], [place] [address] March, [facility] [address] [id number] [address] [place] [address], [place] [address] Jan, [facility] [address] [id number] [address] [place] [address], [place] [address] Dec, [facility] [address] [id number] [address] [place] [address], [place] [address] Nov, [facility] [address] [id number] [address] [place] [address], [place] [address] Nov, [facility] [address] [id number] [address] [place] [address], [place] [address] Oct, [facility] [address] [id number] [address] [place] [address], [place] [address] Oct, [facility] [address] [id number] [address] [place] [address], [place] [address] Oct, [facility] [address] [id number] [address] [place] [address], [place] [address] Oct, [facility] [address] [id number] [address] [place] [address], [place] [address] Oct, [facility] [address] [id number] [address] [place] [address], [place] [address] Oct, [facility] [address] [id number] [address] [place] [address], [place] [address] Sep, [facility] [address] [id number] [address] [place] [address], [place] [address] Sep, [facility] [address] [id number] [address] [place] [address], [place] [address] Sep, [facility] [address] [id number] [address] [place] [address], [place] [address] Sep, [facility] [address] [id number] [address] [place] [address], [place] [address] Sep, [facility] [address] [id number] [address] [place] [address], [place] [address] Sep, [facility] [address] [id number] [address] [place] [address], [place] [address] Sep, [facility] [address] [id number] [address] [place] [address], [place] [address] Sep, [facility] [address] [id number] [address] [place] [address], [place] [address] Sep, [facility] [address] [id number] [address] [place] [address], [place] [address] Sep, [facility] [address] [id number] [address] [place] [address], [place] [address] Sep, [facility] [address] [id number] [address] [place] [address], [place] [address] Sep, [facility] [address] [id number] [address] [place] [address], [place] [address] Aug, [facility] [address] [id number] [address] [place] [address], [place] [address] Aug, [facility] [address] [id number] [address] [place] [address], [place] [address] Aug, [facility] [address] [id number] [address] [place] [address], [place] [address] Aug, [facility] [address] [id number] [address] [place] [address], [place] [address] Aug, [facility] [address] [id number] [address] [place] [address], [place] [address] Aug, [facility] [address] [id number] [address] [place] [address], [place] [id number] Aug, [facility] [address] [id number] [address] [place] [address], [place] [id number] Aug, [facility] [address] [id number] [address] [place] [address], [place] [id number] Aug, [facility] [address] [id number] [address] [place] [address], [place] [id number] Aug, [facility] [address] [id number] [address] [place] [address], [place] [id number] Jul, [facility] [address] [id number] [address] [place] [address], [place] [id number] Jul, [facility] [address] [id number] [address] [place] [address], [place] [id number] Jun, [facility] [address] [id number] [address] [place] [address], [place] [id number] Jun, [facility] [address] [id number] [address] [place] [address], [place] [id number] Jun, [facility] [address] [id number] [address] [place] [address], [place] [id number] May, [facility] [address] [id number] [address] [place] [address], [place] [id number] May, [facility] [address] [id number] [address] [place] [address], [place] [id number] May, [facility] [address] [id number] [address] [place] [address], [place] [id number] May, [facility] [address] [id number] [address] [place] [address], [place] [id number] Apr, [facility] [address] [id number] [address] [place] [address], [place] [id number] Apr, [facility] [address] [id number] [address] [place] [address], [place] [id number] Apr, [facility] [address] [id number] [address] [place] [address], [place] [id number] Apr, [facility] [address] [id number] [address] [place] [address], [place] [id number] March, [facility] [address] [id number] [address] [place] [address], [place] [id number] Jan, [facility] [address] [id number] [address] [place] [address], [place] [id number] Dec, [facility] [address] [id number] [address] [place] [address], [place] [id number] Dec, [facility] [address] [id number] [address] [place] [address], [place] [id number] Oct, [facility] [address] [id number] [address] [place] [address], [place] [id number] Oct, [facility] [address] [id number] [address] [place] [address], [place] [id number] Oct, [facility] [address] [id number] [address] [place] [address], [place] [id number] Oct, [facility] [address] [id number] [address] [place] [address], [place] [id number] 15 Oct, 2011 [facility] [address] [id number] [address] [place] [address], [place] [id number] Oct, [facility] [address] [id number] [address] [place] [id number] Oct, [facility] [address] [id number] [address] [place] [id number] Oct, [facility] [address] [id number] [address] [place] [id number] Sep, [facility] [address] [id number] [address] [place] [id number] Sep, [facility] [address] [id number] [address] [place] [id number] Sep, [facility] [address] [id number] [address] [place] [id number] Sep, [facility] [address] [facility] [id number] [address] [place] [id number] Aug, [facility] [address] [id number] [address] [place] [id number] Jul, IMMUNIZATIONS Vaccine Route Administration Date Status TDAP (BOOSTRIX) IM Intramuscular April 21, 2018 Administered SOCIAL HISTORY Never Assessed REASON FOR VISIT tdap -MS PLAN OF CARE VITAL SIGNS MEDICATIONS Unknown Medications RESULTS No Results PROCEDURES Procedure Date Ordered Result Body Site TDAP (BOOSTRIX) April 21, 2018 SINGLE IMMUNIZATION ADMIN April 21, 2018 INSTRUCTIONS MEDICATIONS ADMINISTERED No Known Medications MEDICAL (GENERAL) HISTORY Type Description Date Medical History seizures Medical History allergic rhinitis Medical History mood disorder Medical History back pain
--- OUTSIDE RECORDS SUMMARY | 2020-02-03 17:08 | XMS REPORT ---
Author Author Derek KEITH Organization [facility] [place] Address [address] [place] [address] Care Team Providers Care Office Rental Clerk Name Role Phone ARMANI KEITH Unavailable PROBLEMS Type Condition ICD9-CM Code IUK02-CO Code Onset Dates Condition S tatus SNOMED Code Problem Anxiety F41.9 Active 95373749 Problem Seasonal allergic rhinitis due to other allergic trigger J30.89 Active 295194078 Problem Bladder spasms N32.89 Active 39323 7006 ALLERGIES No Information ENCOUNTERS Encounter Location Date Diagnosis [place] [id number] [address] Aug, [facility] [place] [address] [place] [id number] [address] [place] [id number] Jul, Dysuria R30.0 and Bladder sp asms N32.89 [facility] [place] [address] [place] [id number] [address] [place] [id number] Jul, [facility] [place] [address] [place] [id number] [address] [place] [id number] March, Elevated liver enzymes R74.8 and Abnormal CBC R79.89 [facility] [place] [address] [place] [id number] March, Encounter for immunization Z 23 [facility] [place] [address] [facility] [id number] [address] [place] [id number] March, [facility] [place] [address] [place] [id number] [address] [place] [id number] March, [facility] [place] [address] [place] [id number] [address] [place] [id number] March, Elevated liver enzymes R74.8 and Abnormal CBC R79.89 [place] [address] [address] [facility] [id number] [address] [place] [phone] March, Anxiety F41.9 ; Bronchitis J 40 and Seasonal allergic rhinitis due to other allergic trigger J30.89 [facility] [place] [address] [facility] [id number] [address] [place] [phone] March, [facility] [place] [address] [facility] [id number] [address] [place] [phone] Feb, [facility] [place] [address] [facility] [id number] [address] [place] [phone] Feb, Pharyngitis due to other org anism J02.8 [place] [address] [place] [id number] [place] [address] Feb, Pharyngitis due to other org anism J02.8 [facility] [address] [address] Feb, Sore throat J02.9 ; Fatigue, unspecified type R53.83 and Strep pharyngitis J02.0 [facility] [address] [address] Feb, Acute nasopharyngitis J00 [facility] [address] [place] [id number] [place] [address] Feb, Lower abdominal pain R10.30 [facility] [address] [place] [id number] [address] [place] [address] Feb, Bladder spasms N32.89 and Ur inary frequency R35.0 [facility] [address] [place] [id number] [address] [place] [phone] Jan, Strep throat J02.0 [facility] [address] [place] [id number] [place] [id number] Dec, Seasonal allergic rhinitis, unspecified trigger J30.2 [facility] [place] [address] [place] [id number] [place] [address] Nov, Acute suppurative otitis med ia of both ears without spontaneous rupture of tympanic membranes, recurrence not specified H66.003 [facility] [place] [address] [place] [id number] [place] [address] Nov, Acute suppurative otitis med ia of both ears without spontaneous rupture of tympanic membranes, recurrence not specified H66.003 [facility] [place] [address] [place] [id number] [place] [address] Nov, Acute suppurative otitis med ia of both ears without spontaneous rupture of tympanic membranes, recurrence not specified H66.003 [place] [address] [address] Oct, [place] [address] [address] 21 Jul, 2017 Seizures R56.9 [place] [address] [address] 14 Jul, 2017 Seizures R56.9 ; Other chron ic pain G89.29 ; Pain in left ankle and joints of left foot M25.572 and Allergic rhinitis, unspecified allergic rhinitis trigger, unspecified rhinitis seasonality J30.9 [facility] [place] [address] [address] 07 Jul, 2017 Acute seasonal allergic rhin itis due to other allergen J30.89 [facility] [place] [address] [place] [id number] [address] [place] [address] Jun, Left foot pain M79.672 and L eft lateral ankle pain M25.572 [place] [address] [address] Aug, Allergic rhinitis, unspecifi ed allergic rhinitis trigger, unspecified rhinitis seasonality J30.9 ; Low back pain M54.5 and Other chronic pain G89.29 [facility] [place] [address] [address] Jul, [facility] [address] [address] Jul, Low back pain M54.5 and Othe r chronic pain G89.29 [facility] [place] [address] [address] Jul, Acute maxillary sinusitis, r ecurrence not specified J01.00 [facility] [place] [address] [address] Jun, Cellulitis of left lower ext remity L03.116 [facility] [address] [address] Apr, Wrist pain, left M25.532 [facility] [address] [address] March, Low back pain M54.5 ; Fever, unspecified R50.9 and Strep pharyngitis J02.0 [facility] [place] [address] [address] March, Hordeolum externum of left u pper eyelid H00.014 and Acute follicular conjunctivitis of left eye H10.012 [place] [address] [address] Jan, Folliculitis L73.9 [facility] [place] [address] [address] Jan, Screen for sexually transmit yayo diseases Z11.3 [place] [address] [address] Nov, [place] [address] [address] Nov, Gen idiopathic epilepsy, not intractable, 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 [facility] [place] [address] [address] Nov, Malaise R53.81 ; Upper respi ratory infection J06.9 and Pharyngitis J02.9 [facility] [address] [facility] [id number] [address] [place] [phone] 04 Nov, 2015 Acute pharyngitis, unspecifi ed J02.9 ; Acute upper respiratory infection, unspecified J06.9 ; Other viral agents as the cause of diseases classified elsewhere B97.89 and Allergic rhinitis J30.9 [facility] [address] [facility] [id number] [address] [place] [phone] 04 Oct, 2015 Testicular pain N50.8 [facility] [place] [address] [facility] [id number] [address] [place] [address] 15 Jul, 2015 Sinusitis 473.9 [facility] [place] [address] [place] [id number] [place] [id number] 12 Apr, 2015 Back pain 724.5 [facility] [place] [address] [facility] [id number] [address] [place] [id number] 11 Apr, 2015 [facility] [place] [address] [facility] [id number] [address] [place] [phone] Feb, [facility] [place] [address] [facility] [id number] [address] [place] [phone] Feb, [facility] [place] [address] [facility] [id number] [address] [place] [phone] Jan, [facility] [place] [address] [facility] [id number] [address] [place] [phone] Nov, [facility] [place] [address] [facility] [id number] [address] [place] [phone] Nov, [facility] [place] [address] [facility] [id number] [address] [place] [phone] Nov, [facility] [place] [address] [facility] [id number] [address] [place] [phone] Nov, [facility] [place] [address] [facility] [id number] [address] [place] [phone] Oct, [facility] [address] [id number] [address] [place] [address], [place] [address] Oct, [facility] [address] [id number] [address] [place] [address], [place] [address] Aug, [facility] [address] [id number] [address] [place] [address], [place] [address] Aug, [facility] [address] [id number] [address] [place] [address], [place] [address] Aug, [facility] [address] [id number] [address] [place] [address], [place] [address] Aug, [facility] [address] [id number] [address] [place] [address], [place] [address] Aug, [facility] [address] [id number] [address] [place] [address], [place] [address] Aug, [facility] [address] [id number] [address] [place] [address], [place] [address] Aug, [facility] [address] [id number] [address] [place] [address], [place] [address] Aug, [facility] [address] [id number] [address] [place] [address], [place] [address] Jun, [facility] [address] [id number] [address] [place] [address], [place] [address] Jun, [facility] [address] [id number] [address] [place] [address], [place] [address] Jun, [facility] [address] [id number] [address] [place] [address], [place] [address] Jun, [facility] [address] [id number] [address] [place] [address], [place] [address] Jun, [facility] [address] [id number] [address] [place] [address], [place] [address] Jun, [facility] [address] [id number] [address] [place] [address], [place] [address] Jun, [facility] [address] [id number] [address] [place] [address], [place] [address] Jun, [facility] [address] [id number] [address] [place] [address], [place] [address] Jun, [facility] [address] [id number] [address] [place] [address], [place] [address] Jun, [facility] [address] [id number] [address] [place] [address], [place] [address] May, [facility] [address] [id number] [address] [place] [address], [place] [address] May, [facility] [address] [id number] [address] [place] [address], [place] [address] March, [facility] [address] [id number] [address] [place] [address], [place] [address] March, [facility] [address] [id number] [address] [place] [address], [place] [address] March, [facility] [address] [id number] [address] [place] [address], [place] [address] March, [facility] [address] [id number] [address] [place] [address], [place] [address] Feb, [facility] [address] [id number] [address] [place] [address], [place] [address] Feb, [facility] [address] [id number] [address] [place] [address], [place] [address] Jan, [facility] [address] [id number] [address] [place] [address], [place] [address] Jan, [facility] [address] [id number] [address] [place] [address], [place] [address] Jan, [facility] [address] [id number] [address] [place] [address], [place] [address] Jan, [facility] [address] [id number] [address] [place] [address], [place] [address] Dec, [facility] [address] [id number] [address] [place] [address], [place] [address] Dec, [facility] [address] [id number] [address] [place] [address], [place] [address] Dec, [facility] [address] [id number] [address] [place] [address], [place] [address] Dec, [facility] [address] [id number] [address] [place] [address], [place] [address] Dec, [facility] [address] [id number] [address] [place] [address], [place] [address] Dec, [facility] [address] [id number] [address] [place] [address], [place] [address] Nov, [facility] [address] [id number] [address] [place] [address], [place] [address] Nov, [facility] [address] [id number] [address] [place] [address], [place] [address] Nov, [facility] [address] [id number] [address] [place] [address], [place] [address] Nov, [facility] [address] [id number] [address] [place] [address], [place] [address] Nov, [facility] [address] [id number] [address] [place] [address], [place] [address] Nov, [facility] [address] [id number] [address] [place] [address], [place] [address] Nov, [facility] [address] [id number] [address] [place] [address], [place] [address] Nov, [facility] [address] [id number] [address] [place] [address], [place] [address] Nov, [facility] [address] [id number] [address] [place] [address], [place] [address] Nov, [facility] [address] [id number] [address] [place] [address], [place] [address] Nov, [facility] [address] [id number] [address] [place] [address], [place] [address] Nov, [facility] [address] [id number] [address] [place] [address], [place] [address] Oct, [facility] [address] [id number] [address] [place] [address], [place] [address] Oct, [facility] [address] [id number] [address] [place] [address], [place] [address] Oct, [facility] [address] [id number] [address] [place] [address], [place] [address] Oct, [facility] [address] [id number] [address] [place] [address], [place] [address] Sep, [facility] [address] [id number] [address] [place] [address], [place] [address] Sep, [facility] [address] [id number] [address] [place] [address], [place] [address] Sep, [facility] [address] [id number] [address] [place] [address], [place] [address] Sep, [facility] [address] [id number] [address] [place] [address], [place] [address] Sep, [facility] [address] [id number] [address] [place] [address], [place] [address] Sep, [facility] [address] [id number] [address] [place] [address], [place] [address] Sep, [facility] [address] [id number] [address] [place] [address], [place] [address] Sep, [facility] [address] [id number] [address] [place] [address], [place] [address] 30 Jul, 2013 [facility] [address] [id number] [address] [place] [address], [place] [address] Jul, [facility] [address] [id number] [address] [place] [address], [place] [address] May, [facility] [address] [id number] [address] [place] [address], [place] [address] Apr, [facility] [address] [id number] [address] [place] [address], [place] [address] Apr, [facility] [address] [id number] [address] [place] [address], [place] [address] Apr, [facility] [address] [id number] [address] [place] [address], [place] [address] Apr, [facility] [address] [id number] [address] [place] [address], [place] [address] Apr, [facility] [address] [id number] [address] [place] [address], [place] [address] Apr, [facility] [address] [id number] [address] [place] [address], [place] [address] Apr, [facility] [address] [id number] [address] [place] [address], [place] [address] March, [facility] [address] [id number] [address] [place] [address], [place] [address] March, [facility] [address] [id number] [address] [place] [address], [place] [address] Jan, [facility] [address] [id number] [address] [place] [address], [place] [address] Dec, [facility] [address] [id number] [address] [place] [address], [place] [address] Nov, [facility] [address] [id number] [address] [place] [address], [place] [address] Nov, [facility] [address] [id number] [address] [place] [address], [place] [address] Oct, [facility] [address] [id number] [address] [place] [address], [place] [address] Oct, [facility] [address] [id number] [address] [place] [address], [place] [address] Oct, [facility] [address] [id number] [address] [place] [address], [place] [address] Oct, [facility] [address] [id number] [address] [place] [address], [place] [address] Oct, [facility] [address] [id number] [address] [place] [address], [place] [address] Oct, [facility] [address] [id number] [address] [place] [address], [place] [address] Sep, [facility] [address] [id number] [address] [place] [address], [place] [address] Sep, [facility] [address] [id number] [address] [place] [address], [place] [address] Sep, [facility] [address] [id number] [address] [place] [address], [place] [address] Sep, [facility] [address] [id number] [address] [place] [address], [place] [address] Sep, [facility] [address] [id number] [address] [place] [address], [place] [address] Sep, [facility] [address] [id number] [address] [place] [address], [place] [address] Sep, [facility] [address] [id number] [address] [place] [address], [place] [address] Sep, [facility] [address] [id number] [address] [place] [address], [place] [address] Sep, [facility] [address] [id number] [address] [place] [address], [place] [address] Sep, [facility] [address] [id number] [address] [place] [address], [place] [address] Sep, [facility] [address] [id number] [address] [place] [address], [place] [address] Sep, [facility] [address] [id number] [address] [place] [address], [place] [address] Aug, [facility] [address] [id number] [address] [place] [address], [place] [address] Aug, [facility] [address] [id number] [address] [place] [address], [place] [address] Aug, [facility] [address] [id number] [address] [place] [address], [place] [address] Aug, [facility] [address] [id number] [address] [place] [address], [place] [address] Aug, [facility] [address] [id number] [address] [place] [address], [place] [address] Aug, [facility] [address] [id number] [address] [place] [address], [place] [address] Aug, [facility] [address] [id number] [address] [place] [address], [place] [address] Aug, [facility] [address] [id number] [address] [place] [address], [place] [address] Aug, [facility] [address] [id number] [address] [place] [address], [place] [address] Aug, [facility] [address] [id number] [address] [place] [address], [place] [address] 24 Jul, 2012 [facility] [address] [id number] [address] [place] [address], [place] [address] Jul, [facility] [address] [id number] [address] [place] [address], [place] [address] Jun, [facility] [address] [id number] [address] [place] [address], [place] [address] Jun, [facility] [address] [id number] [address] [place] [address], [place] [address] Jun, [facility] [address] [id number] [address] [place] [address], [place] [address] May, [facility] [address] [id number] [address] [place] [address], [place] [address] May, [facility] [address] [id number] [address] [place] [address], [place] [address] May, [facility] [address] [id number] [address] [place] [address], [place] [address] May, [facility] [address] [id number] [address] [place] [address], [place] [address] Apr, [facility] [address] [id number] [address] [place] [address], [place] [address] Apr, [facility] [address] [id number] [address] [place] [address], [place] [address] Apr, [facility] [address] [id number] [address] [place] [address], [place] [address] Apr, [facility] [address] [id number] [address] [place] [address], [place] [address] March, [facility] [address] [id number] [address] [place] [address], [place] [address] Jan, [facility] [address] [id number] [address] [place] [address], [place] [address] Dec, [facility] [address] [id number] [address] [place] [address], [place] [address] Dec, [facility] [address] [id number] [address] [place] [address], [place] [address] Oct, [facility] [address] [id number] [address] [place] [address], [place] [address] Oct, [facility] [address] [id number] [address] [place] [id number] 23 Oct, 2011 [facility] [place] [address] [id number] [address] [place] [id number] 19 Oct, 2011 [facility] [place] [address] [id number] [address] [place] [id number] 15 Oct, 2011 [facility] [place] [address] [id number] 25 [place] [id number] 15 Oct, 2011 [facility], [place], [facility] [address] [id number] [address] [place] [id number] Oct, [facility], [place], [facility] [address] [id number] [address] [place] [id number] 05 Oct, 2011 [facility], [place], [facility] [address] [id number] [address] [place] [id number] 28 Sep, 2011 [facility], [place], [facility] [address] [id number] [address] [place] [id number] 28 Sep, 2011 [facility], [place], [facility] [address] [id number] [address] [place] [id number] Sep, [facility], [place], [facility] [address] [id number] [address] [place] [id number] Sep, [facility], [place], [facility] [address] [id number] [address] [place] [id number] Aug, [facility], [place], [facility] [address] [id number] [address] [place] [id number] 15 Jul, 2011 IMMUNIZATIONS No Known Immunizations SOCIAL HISTORY Never Assessed REASON FOR VISIT Requests return call/ PLAN OF CARE VITAL SIGNS MEDICATIONS Unknown Medications RESULTS No Results PROCEDURES No Known procedures INSTRUCTIONS MEDICATIONS ADMINISTERED No Known Medications MEDICAL (GENERAL) HISTORY Type Description Date Medical History seizures Medical History allergic rhinitis Medical History mood disorder Medical History back pain Surgical History No Surgical history information
--- OUTSIDE RECORDS SUMMARY | 2020-02-03 17:08 | XMS REPORT ---
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 [id number] [address] [place] [address] March, Elevated liver enzymes R74.8 and Abnormal CBC R79.89 [facility] [address] [facility] [id number] [address] [place] [address] March, Encounter for immunization Z 23 [facility] [address] [facility] [id number] [address] [place] [address] March, [facility] [address] [facility] [id number] [address] [place] [address] March, [facility] [address] [facility] [id number] [address] [place] [address] March, Elevated liver enzymes R74.8 and Abnormal CBC R79.89 [facility] [address] [facility] [id number] [address] [place] [address] March, Anxiety F41.9 ; Bronchitis J 40 and Seasonal allergic rhinitis due to other allergic trigger J30.89 [facility] [address] [facility] [id number] [address] [place] [address] March, [facility] [address] [facility] [id number] [address] [place] [address] Feb, [place] [address] [address] Feb, Pharyngitis due to other org anism J02.8 [place] [address] [address] Feb, Pharyngitis due to other org anism J02.8 [facility] [address] [address] Feb, Sore throat J02.9 ; Fatigue, unspecified type R53.83 and Strep pharyngitis J02.0 [facility] N [address] [address] Feb, Acute nasopharyngitis J00 [facility] [place] [address] [address] Feb, Lower abdominal pain R10.30 [facility] [place] [address] [address] Feb, Bladder spasms N32.89 and Ur inary frequency R35.0 [facility] [place] [address] [address] Jan, Strep throat J02.0 [facility] [place] [address] [address] Dec, Seasonal allergic rhinitis, unspecified trigger J30.2 [place] [address] [address] Nov, Acute suppurative otitis med ia of both ears without spontaneous rupture of tympanic membranes, recurrence not specified H66.003 [facility] N [address] [address] Nov, Acute suppurative otitis med ia of both ears without spontaneous rupture of tympanic membranes, recurrence not specified H66.003 [facility] [address] [place] [address] Nov, Acute suppurative otitis med ia of both ears without spontaneous rupture of tympanic membranes, recurrence not specified H66.003 [place] [address] [address] Oct, [place] [address] [address] 21 Jul, 2017 Seizures R56.9 [place] [address] [address] 14 Jul, 2017 Seizures R56.9 ; Other chron ic pain G89.29 ; Pain in left ankle and joints of left foot M25.572 and Allergic rhinitis, unspecified allergic rhinitis trigger, unspecified rhinitis seasonality J30.9 [facility] [place] [address] [address] 07 Jul, 2017 Acute seasonal allergic rhin itis due to other allergen J30.89 [facility] [place] [address] [address] Jun, Left foot pain M79.672 and L eft lateral ankle pain M25.572 [place] [address] [address] Aug, Allergic rhinitis, unspecifi ed allergic rhinitis trigger, unspecified rhinitis seasonality J30.9 ; Low back pain M54.5 and Other chronic pain G89.29 [facility] N [address] [address] Jul, [facility] N [address] [address] 12 Jul, 2016 Low back pain M54.5 and Othe r chronic pain G89.29 [facility] [place] [address] [address] 09 Jul, 2016 Acute maxillary sinusitis, r ecurrence not specified J01.00 [facility] [address] [address] Jun, Cellulitis of left lower ext remity L03.116 [facility] [place] [address] [address] Apr, Wrist pain, left M25.532 [facility] [place] [address] [address] March, Low back pain M54.5 ; Fever, unspecified R50.9 and Strep pharyngitis J02.0 [facility] [place] [address] [address] March, Hordeolum externum of left u pper eyelid H00.014 and Acute follicular conjunctivitis of left eye H10.012 [place] [address] [address] Jan, Folliculitis L73.9 [facility] [place] [address] [address] Jan, Screen for sexually transmit yayo diseases Z11.3 [place] [address] [address] Nov, [place] [address] [address] Nov, Gen idiopathic epilepsy, not intractable, 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 [facility] [place] [address] [address] Nov, Malaise R53.81 ; Upper respi ratory infection J06.9 and Pharyngitis J02.9 [facility] [place] [address] [address] Nov, Acute pharyngitis, unspecifi ed J02.9 ; Acute upper respiratory infection, unspecified J06.9 ; Other viral agents as the cause of diseases classified elsewhere B97.89 and Allergic rhinitis J30.9 [facility] [address] [id number] [address] [place] [address] 04 Oct, 2015 Testicular pain N50.8 [facility] [address] [id number] [address] [place] [address] 15 Jul, 2015 Sinusitis 473.9 [facility] [address] [id number] [address] [place] [address] 12 Apr, 2015 Back pain 724.5 [facility] [address] [id number] [address] [place] [address] 11 Apr, 2015 [facility] [address] [id number] [address] [place] [address] Feb, [facility] [address] [id number] [address] [place] [address] Feb, [facility] [address] [id number] [address] [place] [address] Jan, [facility] [address] [id number] [address] [place] [address] Nov, [facility] [address] [id number] [address] [place] [address] Nov, [facility] [address] [id number] [address] [place] [address] Nov, [facility] [address] [id number] [address] [place] [address] Nov, [facility] [address] [id number] [address] [place] [address] Oct, [facility] [address] [id number] [address] [place] [address] Oct, [facility] [address] [id number] [address] [place] [address] Aug, [facility] [address] [id number] [address] [place] [address] Aug, [facility] [address] [id number] [facility] [place] [address] Aug, [facility] [address] [id number] [facility] [place] [address] Aug, [facility] [address] [id number] [facility] [place] [address] Aug, [facility] [address] [id number] [address] [place] [address], [place] [address] Aug, [facility] [address] [id number] [address] [place] [address], [place] [address] Aug, [facility] [address] [id number] [address] [place] [address], [place] [address] Aug, [facility] [address] [id number] [address] [place] [address], [place] [address] Jun, [facility] [address] [id number] [address] [place] [address], [place] [address] Jun, [facility] [address] [id number] [address] [place] [address], [place] [address] Jun, [facility] [address] [id number] [address] [place] [address], [place] [address] Jun, [facility] [address] [id number] [address] [place] [address], [place] [address] Jun, [facility] [address] [id number] [address] [place] [address], [place] [address] Jun, [facility] [address] [id number] [address] [place] [address], [place] [address] Jun, [facility] [address] [id number] [address] [place] [address], [place] [address] Jun, [facility] [address] [id number] [address] [place] [address], [place] [address] Jun, [facility] [address] [id number] [address] [place] [address], [place] [address] Jun, [facility] [address] [id number] [address] [place] [address], [place] [address] May, [facility] [address] [id number] [address] [place] [address], [place] [address] May, [facility] [address] [id number] [address] [place] [address], [place] [address] March, [facility] [address] [id number] [address] [place] [address], [place] [address] March, [facility] [address] [id number] [address] [place] [address], [place] [address] March, [facility] [address] [id number] [address] [place] [address], [place] [address] March, [facility] [address] [id number] [address] [place] [address], [place] [address] Feb, [facility] [address] [id number] [address] [place] [address], [place] [address] Feb, [facility] [address] [id number] [address] [place] [address], [place] [address] Jan, [facility] [address] [id number] [address] [place] [address], [place] [address] Jan, [facility] [address] [id number] [address] [place] [address], [place] [address] Jan, [facility] [address] [id number] [address] [place] [address], [place] [address] Jan, [facility] [address] [id number] [address] [place] [address], [place] [address] Dec, [facility] [address] [id number] [address] [place] [address], [place] [address] Dec, [facility] [address] [id number] [address] [place] [address], [place] [address] Dec, [facility] [address] [id number] [address] [place] [address], [place] [address] 14 Dec, 2013 [facility] [address] [id number] [address] [place] [address], [place] [address] 11 Dec, 2013 [facility] [address] [id number] [address] [place] [address], [place] [address] 11 Dec, 2013 [facility] [address] [id number] [address] [place] [address], [place] [address] Nov, [facility] [address] [id number] [address] [place] [address], [place] [address] Nov, [facility] [address] [id number] [address] [place] [address], [place] [address] Nov, [facility] [address] [id number] [address] [place] [address], [place] [address] Nov, [facility] [address] [id number] [address] [place] [address], [place] [address] Nov, [facility] [address] [id number] [address] [place] [address], [place] [address] Nov, [facility] [address] [id number] [address] [place] [address], [place] [address] Nov, [facility] [address] [id number] [address] [place] [address], [place] [address] Nov, [facility] [address] [id number] [address] [place] [address], [place] [address] Nov, [facility] [address] [id number] [address] [place] [address], [place] [address] Nov, [facility] [address] [id number] [address] [place] [address], [place] [address] Nov, [facility] [address] [id number] [address] [place] [address], [place] [address] Nov, [facility] [address] [id number] [address] [place] [address], [place] [address] Oct, [facility] [address] [id number] [address] [place] [address], [place] [address] Oct, [facility] [address] [id number] [address] [place] [address], [place] [address] Oct, [facility] [address] [id number] [address] [place] [address], [place] [address] Oct, [facility] [address] [id number] [address] [place] [address], [place] [address] Sep, [facility] [address] [id number] [address] [place] [address], [place] [address] Sep, [facility] [address] [id number] [address] [place] [address], [place] [address] Sep, [facility] [address] [id number] [address] [place] [address], [place] [address] Sep, [facility] [address] [id number] [address] [place] [address], [place] [address] Sep, [facility] [address] [id number] [address] [place] [address], [place] [address] Sep, [facility] [address] [id number] [address] [place] [address], [place] [address] Sep, [facility] [address] [id number] [address] [place] [address], [place] [address] Sep, [facility] [address] [id number] [address] [place] [address], [place] [address] 30 Jul, 2013 [facility] [address] [id number] [address] [place] [address], [place] [address] Jul, [facility] [address] [id number] [address] [place] [address], [place] [address] May, [facility] [address] [id number] [address] [place] [address], [place] [address] Apr, [facility] [address] [id number] [address] [place] [address] [place] [address] 24 Apr, 2013 [facility] [address] [id number] [address] [place] [address], [place] [address] 20 Apr, 2013 [facility] [address] [id number] [address] [place] [address], [place] [address] Apr, [facility] [address] [id number] [address] [place] [address], [place] [address] Apr, [facility] [address] [id number] [address] [place] [address], [place] [address] 10 Apr, 2013 [facility] [address] [id number] [address] [place] [address], [place] [address] Apr, [facility] [address] [id number] [address] [place] [address], [place] [address] March, [facility] [address] [id number] [address] [place] [address], [place] [address] March, [facility] [address] [id number] [address] [place] [address], [place] [address] Jan, [facility] [address] [id number] [address] [place] [address], [place] [address] Dec, [facility] [address] [id number] [address] [place] [address], [place] [address] Nov, [facility] [address] [id number] [address] [place] [address], [place] [address] Nov, [facility] [address] [id number] [address] [place] [address], [place] [address] Oct, [facility] [address] [id number] [address] [place] [address], [place] [address] Oct, [facility] [address] [id number] [address] [place] [address], [place] [address] Oct, [facility] [address] [id number] [address] [place] [address], [place] [address] Oct, [facility] [address] [id number] [address] [place] [address], [place] [address] Oct, [facility] [address] [id number] [address] [place] [address], [place] [address] Oct, [facility] [address] [id number] [address] [place] [address], [place] [address] Sep, [facility] [address] [id number] [address] [place] [address], [place] [address] Sep, [facility] [address] [id number] [address] [place] [address], [place] [address] Sep, [facility] [address] [id number] [address] [place] [address], [place] [address] Sep, [facility] [address] [id number] [address] [place] [address], [place] [address] Sep, [facility] [address] [id number] [address] [place] [address], [place] [address] Sep, [facility] [address] [id number] [address] [place] [address], [place] [address] Sep, [facility] [address] [id number] [address] [place] [address], [place] [address] Sep, [facility] [address] [id number] [address] [place] [address], [place] [address] Sep, [facility] [address] [id number] [address] [place] [address], [place] [address] Sep, [facility] [address] [id number] [address] [place] [address], [place] [address] Sep, [facility] [address] [id number] [address] [place] [address], [place] [address] Sep, [facility] [address] [id number] [address] [place] [address], [place] [address] Aug, [facility] [address] [id number] [address] [place] [address], [place] [address] Aug, [facility] [address] [id number] [address] [place] [address], [place] [address] Aug, [facility] [address] [id number] [address] [place] [address], [place] [address] Aug, [facility] [address] [id number] [address] [place] [address], [place] [address] Aug, [facility] [address] [id number] [address] [place] [address], [place] [address] Aug, [facility] [address] [id number] [address] [place] [address], [place] [address] Aug, [facility] [address] [id number] [address] [place] [address], [place] [address] Aug, [facility] [address] [id number] [address] [place] [address], [place] [address] Aug, [facility] [address] [id number] [address] [place] [address], [place] [address] Aug, [facility] [address] [id number] [address] [place] [address], [place] [address] Jul, [facility] [address] [id number] [address] [place] [address], [place] [address] Jul, [facility] [address] [id number] [address] [place] [address], [place] [address] Jun, [facility] [address] [id number] [address] [place] [address], [place] [address] Jun, [facility] [address] [id number] [address] [place] [address], [place] [address] Jun, [facility] [address] [id number] [address] [place] [address], [place] [address] May, [facility] [address] [id number] [address] [place] [address], [place] [address] May, [facility] [address] [id number] [address] [place] [address], [place] [address] May, [facility] [address] [id number] [address] [place] [address], [place] [address] May, [facility] [address] [id number] [address] [place] [address], [place] [address] Apr, [facility] [address] [id number] [address] [place] [address], [place] [address] Apr, [facility] [address] [id number] [address] [place] [address], [place] [address] Apr, [facility] [address] [id number] [address] [place] [address], [place] [address] Apr, [facility] [address] [id number] [address] [place] [address], [place] [address] March, [facility] [address] [id number] [address] [place] [address], [place] [address] Jan, [facility] [address] [id number] [address] [place] [address], [place] [address] Dec, [facility] [address] [id number] [address] [place] [address], [place] [address] Dec, [facility] [address] [id number] [address] [place] [address], [place] [address] Oct, [facility] [address] [id number] [address] [place] [address], [place] [address] Oct, [facility] [address] [id number] [address] [place] [address], [place] [address] Oct, [facility] [address] [id number] [address] [place] [address], [place] [address] Oct, [facility] [address] [id number] [address] [place] [address], [place] [address] 15 Oct, 2011 [facility] [address] [id number] [address] [place] [address], [place] [address] Oct, [facility] [address] [id number] [address] [place] [address] Oct, [facility] [address] [id number] [address] [place] [address] Oct, [facility] [address] [id number] [address] [place] [address] Sep, [facility] [address] [id number] [address] [place] [phone] Sep, [facility] [address] [id number] [address] [place] [address] Sep, [facility] [address] [id number] [address] [place] [address] Sep, [facility] [address] [facility] [id number] [address] [place] [address] Aug, [facility] [address] [facility] [id number] [address] [place] [address] Jul, IMMUNIZATIONS No Known Immunizations SOCIAL HISTORY Never Assessed REASON FOR VISIT Lab (walk-in)--[facility] PLAN OF CARE VITAL SIGNS MEDICATIONS Unknown Medications RESULTS No Results PROCEDURES Procedure Date Ordered Result Body Site COMPREHEN METABOLIC PANEL April 21, 2018 COMPLETE CBC W/AUTO DIFF WBC April 21, 2018 VENIPUNCT, ROUTINE* April 21, 2018 INSTRUCTIONS MEDICATIONS ADMINISTERED No Known Medications MEDICAL (GENERAL) HISTORY Type Description Date Medical History seizures Medical History allergic rhinitis Medical History mood disorder Medical History back pain
--- OUTSIDE RECORDS SUMMARY | 2020-02-03 17:08 | XMS REPORT ---
Author Author Derek MCCOY Organization [facility] Address [address] [place] [address] Care Team Providers Care Assistant Spa Director Name Role Phone JHONNY MCCOY Unavailable PROBLEMS Type Condition ICD9-CM Code [id number] Code Onset Dates Condition S tatus SNOMED Code Problem Mood disorder F39 Active 545813 05 Problem Anxiety F41.9 Active 10080955 Problem Seasonal allergic rhinitis due to other allergic trigger J30.89 Active 471163194 Problem Bladder spasms N32.89 Active 91521 7006 ALLERGIES Substance Reaction Event Type Date Status Sulfamethoxazole-TMP DS other Drug Allergy Jul, Acti ve Cephalexin rash Drug Allergy Jul, Active Amoxicillin Unknown Drug Allergy Jul, Active ENCOUNTERS Encounter Location Date Diagnosis [place] [id number] [address] Aug, Seizures R56.9 and Mood diso rder F39 [place] [address] [address] Jul, Dysuria R30.0 and Bladder sp asms N32.89 [place] [address] [address] Jul, [facility] [address] [address] March, Elevated liver enzymes R74.8 and Abnormal CBC R79.89 [facility] [address] [address] March, Encounter for immunization Z 23 [facility] [address] [place] [id number] [address] [place] [address] March, [facility] [address] [address] March, [facility] [address] [facility] [id number] [address] [place] [address] March, Elevated liver enzymes R74.8 and Abnormal CBC R79.89 [facility] [address] [facility] [id number] [address] [place] [address] March, Anxiety F41.9 ; Bronchitis J 40 and Seasonal allergic rhinitis due to other allergic trigger J30.89 [facility] [address] [facility] [id number] [address] [place] [address] March, [facility] [address] [facility] [id number] [address] Feb, [facility] [address] [place] [id number] [place] [address] Feb, Pharyngitis due to other org anism J02.8 [place] [address] [place] [id number] [place] [address] Feb, Pharyngitis due to other org anism J02.8 [facility] [address] [address] Feb, Sore throat J02.9 ; Fatigue, unspecified type R53.83 and Strep pharyngitis J02.0 [facility] [address] [place] [id number] [address] [place] [address] Feb, Acute nasopharyngitis J00 [facility] [address] [place] [id number] [address] [place] [address] Feb, Lower abdominal pain R10.30 [facility] [place] [id number] [place] [address] Feb, Bladder spasms N32.89 and Ur inary frequency R35.0 [facility] [address] [place] [id number] [address] [place] [address] Jan, Strep throat J02.0 [facility] [place] [address] [place] [id number] [place] [address] Dec, Seasonal allergic rhinitis, unspecified trigger J30.2 [place] [address] [address] Nov, Acute suppurative otitis med ia of both ears without spontaneous rupture of tympanic membranes, recurrence not specified H66.003 [facility]ALK [place] [address] [address] Nov, Acute suppurative otitis med ia of both ears without spontaneous rupture of tympanic membranes, recurrence not specified H66.003 [facility] [place] [address] [address] Nov, Acute suppurative otitis med ia of both ears without spontaneous rupture of tympanic membranes, recurrence not specified H66.003 [place] [address] [address] Oct, [place] [address] [address] 21 Jul, 2017 Seizures R56.9 [place] [address] [address] 14 Jul, 2017 Seizures R56.9 ; Other chron ic pain G89.29 ; Pain in left ankle and joints of left foot M25.572 and Allergic rhinitis, unspecified allergic rhinitis trigger, unspecified rhinitis seasonality J30.9 [facility] [place] [address] [address] 07 Jul, 2017 Acute seasonal allergic rhin itis due to other allergen J30.89 [facility] [place] [address] [address] Jun, Left foot pain M79.672 and L eft lateral ankle pain M25.572 [place] [address] [address] 06 Oct, 2016 Allergic rhinitis, unspecifi ed allergic rhinitis trigger, unspecified rhinitis seasonality J30.9 ; Low back pain M54.5 and Other chronic pain G89.29 [facility] [address] [address] Jul, [facility] [address] [address] Jul, Low back pain M54.5 and Othe r chronic pain G89.29 [facility] [address] [address] Jul, Acute maxillary sinusitis, r ecurrence not specified J01.00 [facility] [address] [place] [address] Jun, Cellulitis of left lower ext remity L03.116 [facility] [address] [address] Apr, Wrist pain, left M25.532 [facility] [address] [address] March, Low back pain M54.5 ; Fever, unspecified R50.9 and Strep pharyngitis J02.0 [facility] [address] [address] March, Hordeolum externum of left u pper eyelid H00.014 and Acute follicular conjunctivitis of left eye H10.012 [place] [address] [address] Jan, Folliculitis L73.9 [facility] WALK IN [address] [address] Jan, Screen for sexually transmit yayo diseases Z11.3 [place] [address] [address] Nov, [place] [address] [address] Nov, Gen idiopathic epilepsy, not intractable, 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 [facility] WALK IN [facility] [address] [place] [id number] [address] [place] [address] 05 Nov, 2015 Malaise R53.81 ; Upper respi ratory infection J06.9 and Pharyngitis J02.9 [facility] WALK IN [facility] [address] [place] [id number] [address] [place] [address] Nov, Acute pharyngitis, unspecifi ed J02.9 ; Acute upper respiratory infection, unspecified J06.9 ; Other viral agents as the cause of diseases classified elsewhere B97.89 and Allergic rhinitis J30.9 [facility] IN [facility] [address] [place] [id number] [address] [place] [address] 04 Oct, 2015 Testicular pain N50.8 [place] [address] [address] 15 Jul, 2015 Sinusitis 473.9 [facility] [address] [place] [id number] [place] [address] 12 Apr, 2015 Back pain 724.5 [place] [address] [place] [id number] [place] [address] 11 Apr, 2015 [facility] [address] [place] [id number] [place] [address] 14 Feb, 2015 [facility] [address] [place] [id number] [address] [place] [address] 13 Feb, 2015 [facility] [address] [place] [id number] [address] [place] [address] 04 Jan, 2015 [facility] [address] [address] 14 Nov, 2014 [facility] [address] [place] [id number] [address] [place] [address] 14 Nov, 2014 [facility] [address] [place] [id number] [place] [address] Nov, [facility] [address] [id number] [address] [place] [address], [place] [address] Nov, [facility] [address] [id number] [address] [place] [address], [place] [address] Oct, [facility] [address] [id number] [address] [place] [address], [place] [address] Oct, [facility] [address] [id number] [address] [place] [address], [place] [address] Aug, [facility] [address] [id number] [address] [place] [address], [place] [address] Aug, [facility] [address] [id number] [address] [place] [address], [place] [address] Aug, [facility] [address] [id number] [address] [place] [address], [place] [address] Aug, [facility] [address] [id number] [address] [place] [address], [place] [address] Aug, [facility] [address] [id number] [address] [place] [address], [place] [address] Aug, [facility] [address] [id number] [address] [place] [address], [place] [address] Aug, [facility] [address] [id number] [address] [place] [address], [place] [address] Aug, [facility] [address] [id number] [address] [place] [address], [place] [address] Jun, [facility] [address] [id number] [address] [place] [address], [place] [address] Jun, [facility] [address] [id number] [address] [place] [address], [place] [address] Jun, [facility] [address] [id number] [address] [place] [address], [place] [address] Jun, [facility] [address] [id number] [address] [address] Jun, [facility] [address] [id number] [address] [place] [address], [place] [address] Jun, [facility] [address] [id number] [address] [place] [address], [place] [address] Jun, [facility] [address] [id number] [address] [place] [address], [place] [address] Jun, [facility] [address] [id number] [address] [place] [address], [place] [address] Jun, [facility] [address] [id number] [address] [place] [address], [place] [address] Jun, [facility] [address] [id number] [address] [place] [address], [place] [address] May, [facility] [address] [id number] [address] [place] [address], [place] [address] May, [facility] [address] [id number] [address] [place] [address], [place] [address] March, [facility] [address] [id number] [address] [place] [address], [place] [address] March, [facility] [address] [id number] [address] [place] [address], [place] [address] March, [facility] [address] [id number] [address] [place] [address], [place] [address] March, [facility] [address] [id number] [address] [place] [address], [place] [address] Feb, [facility] [address] [id number] [address] [place] [address], [place] [address] Feb, [facility] [address] [id number] [address] [place] [address], [place] [address] Jan, [facility] [address] [id number] [address] [place] [address], [place] [address] Jan, [facility] [address] [id number] [address] [address] Jan, [facility] [address] [id number] [address] [place] [address], [place] [address] Jan, [facility] [address] [id number] [address] [place] [address], [place] [address] Dec, [facility] [address] [id number] [address] [place] [address], [place] [address] Dec, [facility] [address] [id number] [address] [place] [address], [place] [address] Dec, [facility] [address] [id number] [address] [place] [address], [place] [address] Dec, [facility] [address] [id number] [address] [place] [address], [place] [address] Dec, [facility] [address] [id number] [address] [place] [address], [place] [address] Dec, [facility] [address] [id number] [address] [place] [address], [place] [address] Nov, [facility] [address] [id number] [address] [place] [address], [place] [address] Nov, [facility] [address] [id number] [address] [place] [address], [place] [address] Nov, [facility] [address] [id number] [address] [place] [address], [place] [address] Nov, [facility] [address] [id number] [address] [place] [address], [place] [address] Nov, [facility] [address] [id number] [address] [place] [address], [place] [address] Nov, [facility] [address] [id number] [address] [place] [address], [place] [address] Nov, [facility] [address] [id number] [address] [place] [address], [place] [address] Nov, [facility] [address] [id number] [address] [place] [address], [place] [address] Nov, [facility] [address] [id number] [address] [place] [address], [place] [address] Nov, [facility] [address] [id number] [address] [place] [address], [place] [address] Nov, [facility] [address] [id number] [address] [place] [address], [place] [address] Nov, [facility] [address] [id number] [address] [place] [address], [place] [address] Oct, [facility] [address] [id number] [address] [place] [address], [place] [address] Oct, [facility] [address] [id number] [address] [place] [address], [place] [address] Oct, [facility] [address] [id number] [address] [place] [address], [place] [address] Oct, [facility] [address] [id number] [address] [place] [address], [place] [address] Sep, [facility] [address] [id number] [address] [place] [address], [place] [address] Sep, [facility] [address] [id number] [address] [place] [address], [place] [address] Sep, [facility] [address] [id number] [address] [place] [address], [place] [address] Sep, [facility] [address] [id number] [address] [place] [address], [place] [address] Sep, [facility] [address] [id number] [address] [place] [address], [place] [address] Sep, [facility] [address] [id number] [address] [place] [address], [place] [address] Sep, [facility] [address] [id number] [address] [place] [address], [place] [address] Sep, [facility] [address] [id number] [address] [place] [address], [place] [address] 30 Jul, 2013 [facility] [address] [id number] [address] [place] [address], [place] [address] Jul, [facility] [address] [id number] [address] [place] [address], [place] [address] May, [facility] [address] [id number] [address] [place] [address], [place] [address] Apr, [facility] [address] [id number] [address] [place] [address], [place] [address] Apr, [facility] [address] [id number] [address] [place] [address], [place] [address] Apr, [facility] [address] [id number] [address] [place] [address], [place] [address] Apr, [facility] [address] [id number] [address] [place] [address], [place] [address] Apr, [facility] [address] [id number] [address] [place] [address], [place] [address] Apr, [facility] [address] [id number] [address] [place] [address], [place] [address] Apr, [facility] [address] [id number] [address] [place] [address], [place] [address] March, [facility] [address] [id number] [address] [place] [address], [place] [address] March, [facility] [address] [id number] [address] [place] [address], [place] [address] Jan, [facility] [address] [id number] [address] [place] [address], [place] [address] Dec, [facility] [address] [id number] [address] [place] [address], [place] [address] Nov, [facility] [address] [id number] [address] [place] [address], [place] [address] Nov, [facility] [address] [id number] [address] [place] [address], [place] [address] Oct, [facility] [address] [id number] [address] [place] [address], [place] [address] Oct, [facility] [address] [id number] [address] [place] [address], [place] [address] Oct, [facility] [address] [id number] [address] [place] [address], [place] [address] Oct, [facility] [address] [id number] [address] [place] [address], [place] [address] Oct, [facility] [address] [id number] [address] [place] [address], [place] [address] Oct, [facility] [address] [id number] [address] [place] [address], [place] [address] Sep, [facility] [address] [id number] [address] [place] [address], [place] [address] Sep, [facility] [address] [id number] [address] [place] [address], [place] [address] Sep, [facility] [address] [id number] [address] [place] [address], [place] [address] Sep, [facility] [address] [id number] [address] [place] [address], [place] [address] Sep, [facility] [address] [id number] [address] [place] [address], [place] [address] Sep, [facility] [address] [id number] [address] [place] [address], [place] [address] Sep, [facility] [address] [id number] [address] [place] [address], [place] [address] Sep, [facility] [address] [id number] [address] [place] [address], [place] [address] Sep, [facility] [address] [id number] [address] [place] [address], [place] [id number] Sep, [facility] [address] [id number] [address] [place] [address], [place] [id number] Sep, [facility] [address] [id number] [address] [place] [address], [place] [address] Sep, [facility] [address] [id number] [address] [place] [address], [place] [id number] Aug, [facility] [address] [id number] [address] [place] [address], [place] [address] Aug, [facility] [address] [id number] [address] [place] [address], [place] [address] Aug, [facility] [address] [id number] [address] [place] [address], [place] [id number] Aug, [facility] [address] [id number] [address] [place] [address], [place] [address] Aug, [facility] [address] [id number] [address] [place] [address], [place] [address] Aug, [facility] [address] [id number] [address] [place] [address], [place] [address] Aug, [facility] [address] [id number] [address] [place] [address], [place] [address] Aug, [facility] [address] [id number] [address] [place] [address], [place] [address] Aug, [facility] [address] [id number] [address] [place] [address], [place] [address] Aug, [facility] [address] [id number] [address] [place] [address], [place] [id number] 24 Jul, 2012 [facility] [address] [id number] [address] [place] [address], [place] [address] Jul, [facility] [address] [id number] [address] [place] [address], [place] [address] Jun, [facility] [address] [id number] [address] [place] [address], [place] [address] Jun, [facility] [address] [id number] [address] [place] [address], [place] [address] Jun, [facility] [address] [id number] [address] [place] [address], [place] [address] May, [facility] [address] [id number] [address] [place] [address], [place] [address] May, [facility] [address] [id number] [address] [place] [address], [place] [address] May, [facility] [address] [id number] [address] [place] [address], [place] [address] May, [facility] [address] [id number] [address] [place] [address], [place] [address] Apr, [facility] [address] [id number] [address] [place] [address], [place] [address] Apr, [facility] [address] [id number] [address] [place] [address], [place] [address] Apr, [facility] [address] [id number] [address] [place] [address], [place] [address] Apr, [facility] [address] [id number] [address] [place] [address], [place] [address] March, [facility] [address] [id number] [address] [place] [address], [place] [address] Jan, [facility] [address] [id number] [address] [place] [address], [place] [address] Dec, [facility] [address] [id number] [address] [place] [address], [place] [address] Dec, [facility] [address] [id number] [address] [place] [id number] 27 Oct, 2011 [facility] [address] [id number] [address] [place] [id number] Oct, [facility] [address] [id number] [address] [place] [id number] Oct, [facility] [address] [id number] [address] [place] [id number] Oct, [facility] [address] [id number] [address] [place] [id number] 15 Oct, 2011 [facility] [address] [id number] [address] [place] [id number] Oct, [facility] [address] [id number] [address] [place] [id number] Oct, [facility] [address] [id number] [address] [place] [id number] Oct, [facility] [address] [id number] [address] [place] [id number] Sep, [facility] [address] [address] [id number] [address] [place] [phone] Sep, [facility] [address] [id number] [address] [place] [phone] Sep, [facility] [address] [id number] [address] [place] [phone] Sep, [facility] [address] [id number] [address] [place] [id number] Aug, [facility] [address] [id number] [address] [place] [phone] Jul, IMMUNIZATIONS No Known Immunizations SOCIAL HISTORY Never Assessed REASON FOR VISIT bladder spasms-twooden,RMA, hurts when sitting and gibson when urinating and devonte ent had some blood in his urine, his bladder is constantly hurting. PLAN OF CARE Activity Details Follow Up prn Reason: VITAL SIGNS Height 74 in 2018-08-10 Weight 300.2 lbs 2018-08-10 Temperature 97.9 degrees Fahrenheit 2018-08-10 Heart Rate 75 bpm 2018-08-10 Respiratory Rate 20 2018-08-10 Oximetry on room air:100 % 2018-08-10 BMI 38.54 kg/m2 2018-08-10 Blood pressure systolic 122 mmHg 2018-08-10 Blood pressure diastolic 94 mmHg 2018-08-10 MEDICATIONS Medication Instructions Dosage Frequency Start Date End Date Duration S tatus Pantoprazole Sodium 20 mg Orally Once a day 1 tablet 24h Feb 30 day(s) Active Naproxen 500 MG Orally every 12 hrs 1 tablet as needed 12h 06 Aug, 016 Active EPINEPHrine 0.3 MG/0.3ML Injection 1 time as needed 0.3 mg IM Active Tolterodine Tartrate 1 MG Orally Twice a day 1 tablet 12h Jul, Jul, 3 days Active Depakote ER 500 mg Orally 2 times a day 2 tablets 12h Active Flonase 50 MCG/ACT Nasally Once a day 1 spray in each nostril 24h Feb, 30 day(s) Active ProAir HFA 108 (90 Base) MCG/ACT Inhalation every 6 hrs 2 puffs as needed 6h March, Active Ciprofloxacin HCl 250 MG Orally every 12 hrs 1 tablet 12h 3 day(s) Active RESULTS Name Result Date Reference Range UA LONG DIP (IN HOUSE) Lot # [id number] Exp date 02/2019 Clarity clear Color yellow Odor none GLU negative KIM 1+ KET trace SG negative BLO negative pH 6.0 Protein 2+ URO 1.0 NIT negative CARMEN negative Lot # Exp date PROCEDURES Procedure Date Ordered Result Body Site URINALYSIS, AUTO, W/O SCOPE Aug 10, 2018 INSTRUCTIONS MEDICATIONS ADMINISTERED No Known Medications MEDICAL (GENERAL) HISTORY Type Description Date Medical History seizures Medical History allergic rhinitis Medical History mood disorder Medical History back pain Surgical History No know Surgical history Hospitalization History Seizure activity - [facility] ER. 07/2018
--- OUTSIDE RECORDS SUMMARY | 2020-02-03 17:09 | XMS REPORT ---
Author Author Derek KEITH Organization [facility] Address [address] [place] [address] Care Team Providers Care Basketball Assembler Name Role Phone ARMANI KEITH Unavailable PROBLEMS Type Condition ICD9-CM Code YHP50-VK Code Onset Dates Condition S tatus SNOMED Code Problem Anxiety F41.9 Active 65333264 Problem Seasonal allergic rhinitis due to other allergic trigger J30.89 Active 484294131 Problem Bladder spasms N32.89 Active 11270 7006 ALLERGIES No Information ENCOUNTERS Encounter Location Date Diagnosis [place] [id number] [facility] [id number] [address] [place] [address] March, Elevated liver enzymes R74.8 and Abnormal CBC R79.89 [facility] [address] [facility] [id number] [address] [place] [address] March, Encounter for immunization Z 23 [facility] [address] [facility] [id number] [address] [place] [address] March, [facility] [address] [facility] [id number] [address] [place] [address] March, [facility] [address] [facility] [id number] [address] [place] [address] March, Elevated liver enzymes R74.8 and Abnormal CBC R79.89 [facility] [address] [facility] [id number] [address] [place] [address] March, Anxiety F41.9 ; Bronchitis J 40 and Seasonal allergic rhinitis due to other allergic trigger J30.89 [facility] [address] [facility] [id number] [address] [place] [address] March, [facility] [address] [facility] [id number] [address] [place] [address] Feb, [place] [address] [address] Feb, Pharyngitis due to other org anism J02.8 [place] [address] [address] Feb, Pharyngitis due to other org anism J02.8 [facility] [address] [address] Feb, Sore throat J02.9 ; Fatigue, unspecified type R53.83 and Strep pharyngitis J02.0 [facility] [address] [address] Feb, Acute nasopharyngitis J00 [facility] [place] [address] [address] Feb, Lower abdominal pain R10.30 [facility] [place] [address] [address] Feb, Bladder spasms N32.89 and Ur inary frequency R35.0 [facility] [place] [address] [address] Jan, Strep throat J02.0 [facility] [place] [address] [address] Dec, Seasonal allergic rhinitis, unspecified trigger J30.2 [place] [address] [address] Nov, Acute suppurative otitis med ia of both ears without spontaneous rupture of tympanic membranes, recurrence not specified H66.003 [facility] [address] [address] Nov, Acute suppurative otitis med ia of both ears without spontaneous rupture of tympanic membranes, recurrence not specified H66.003 [facility] [address] [place] [address] Nov, Acute suppurative otitis med ia of both ears without spontaneous rupture of tympanic membranes, recurrence not specified H66.003 [place] [address] [address] Oct, [place] [address] [address] 21 Jul, 2017 Seizures R56.9 [place] [address] [address] 14 Jul, 2017 Seizures R56.9 ; Other chron ic pain G89.29 ; Pain in left ankle and joints of left foot M25.572 and Allergic rhinitis, unspecified allergic rhinitis trigger, unspecified rhinitis seasonality J30.9 [facility] [place] [address] [address] 07 Jul, 2017 Acute seasonal allergic rhin itis due to other allergen J30.89 [facility] [place] [address] [address] Jun, Left foot pain M79.672 and L eft lateral ankle pain M25.572 [place] [address] [address] Aug, Allergic rhinitis, unspecifi ed allergic rhinitis trigger, unspecified rhinitis seasonality J30.9 ; Low back pain M54.5 and Other chronic pain G89.29 [facility] [address] [address] Jul, [facility] [address] [address] 12 Jul, 2016 Low back pain M54.5 and Othe r chronic pain G89.29 [facility] [place] [address] [address] 09 Jul, 2016 Acute maxillary sinusitis, r ecurrence not specified J01.00 [facility] [address] [address] Jun, Cellulitis of left lower ext remity L03.116 [facility] [place] [address] [address] Apr, Wrist pain, left M25.532 [facility] [place] [address] [address] March, Low back pain M54.5 ; Fever, unspecified R50.9 and Strep pharyngitis J02.0 [facility] [place] [address] [address] March, Hordeolum externum of left u pper eyelid H00.014 and Acute follicular conjunctivitis of left eye H10.012 [place] [address] [address] Jan, Folliculitis L73.9 [facility] [place] [address] [address] Jan, Screen for sexually transmit yayo diseases Z11.3 [place] [address] [address] Nov, [place] [address] [address] Nov, Gen idiopathic epilepsy, not intractable, 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 [facility] [place] [address] [address] Nov, Malaise R53.81 ; Upper respi ratory infection J06.9 and Pharyngitis J02.9 [facility] [place] [address] [address] Nov, Acute pharyngitis, unspecifi ed J02.9 ; Acute upper respiratory infection, unspecified J06.9 ; Other viral agents as the cause of diseases classified elsewhere B97.89 and Allergic rhinitis J30.9 [facility] [address] [id number] [address] [place] [address] 04 Oct, 2015 Testicular pain N50.8 [facility] [address] [id number] [address] [place] [address] 15 Jul, 2015 Sinusitis 473.9 [facility] [address] [id number] [address] [place] [address] 12 Apr, 2015 Back pain 724.5 [facility] [address] [id number] [address] [place] [address] 11 Apr, 2015 [facility] [address] [id number] [address] [place] [address] Feb, [facility] [address] [id number] [address] [place] [address] Feb, [facility] [address] [id number] [address] [place] [address] Jan, [facility] [address] [id number] [address] [place] [address] Nov, [facility] [address] [id number] [address] [place] [address] Nov, [facility] [address] [id number] [address] [place] [address] Nov, [facility] [address] [id number] [address] [place] [address] Nov, [facility] [address] [id number] [address] [place] [address] Oct, [facility] [address] [id number] [address] [place] [address] Oct, [facility] [address] [id number] [address] [place] [address] Aug, [facility] [address] [id number] [address] [place] [address] Aug, [facility] [address] [id number] [facility] [place] [address] Aug, [facility] [address] [id number] [facility] [place] [address] Aug, [facility] [address] [id number] [facility] [place] [address] Aug, [facility] [address] [id number] [address] [place] [address], [place] [address] Aug, [facility] [address] [id number] [address] [place] [address], [place] [address] Aug, [facility] [address] [id number] [address] [place] [address], [place] [address] Aug, [facility] [address] [id number] [address] [place] [address], [place] [address] Jun, [facility] [address] [id number] [address] [place] [address], [place] [address] Jun, [facility] [address] [id number] [address] [place] [address], [place] [address] Jun, [facility] [address] [id number] [address] [place] [address], [place] [address] Jun, [facility] [address] [id number] [address] [place] [address], [place] [address] Jun, [facility] [address] [id number] [address] [place] [address], [place] [address] Jun, [facility] [address] [id number] [address] [place] [address], [place] [address] Jun, [facility] [address] [id number] [address] [place] [address], [place] [address] Jun, [facility] [address] [id number] [address] [place] [address], [place] [address] Jun, [facility] [address] [id number] [address] [place] [address], [place] [address] Jun, [facility] [address] [id number] [address] [place] [address], [place] [address] May, [facility] [address] [id number] [address] [place] [address], [place] [address] May, [facility] [address] [id number] [address] [place] [address], [place] [address] March, [facility] [address] [id number] [address] [place] [address], [place] [address] March, [facility] [address] [id number] [address] [place] [address], [place] [address] March, [facility] [address] [id number] [address] [place] [address], [place] [address] March, [facility] [address] [id number] [address] [place] [address], [place] [address] Feb, [facility] [address] [id number] [address] [place] [address], [place] [address] Feb, [facility] [address] [id number] [address] [place] [address], [place] [address] Jan, [facility] [address] [id number] [address] [place] [address], [place] [address] Jan, [facility] [address] [id number] [address] [place] [address], [place] [address] Jan, [facility] [address] [id number] [address] [place] [address], [place] [address] Jan, [facility] [address] [id number] [address] [place] [address], [place] [address] Dec, [facility] [address] [id number] [address] [place] [address], [place] [address] Dec, [facility] [address] [id number] [address] [place] [address], [place] [address] Dec, [facility] [address] [id number] [address] [place] [address], [place] [address] 14 Dec, 2013 [facility] [address] [id number] [address] [place] [address], [place] [address] 11 Dec, 2013 [facility] [address] [id number] [address] [place] [address], [place] [address] 11 Dec, 2013 [facility] [address] [id number] [address] [place] [address], [place] [address] Nov, [facility] [address] [id number] [address] [place] [address], [place] [address] Nov, [facility] [address] [id number] [address] [place] [address], [place] [address] Nov, [facility] [address] [id number] [address] [place] [address], [place] [address] Nov, [facility] [address] [id number] [address] [place] [address], [place] [address] Nov, [facility] [address] [id number] [address] [place] [address], [place] [address] Nov, [facility] [address] [id number] [address] [place] [address], [place] [address] Nov, [facility] [address] [id number] [address] [place] [address], [place] [address] Nov, [facility] [address] [id number] [address] [place] [address], [place] [address] Nov, [facility] [address] [id number] [address] [place] [address], [place] [address] Nov, [facility] [address] [id number] [address] [place] [address], [place] [address] Nov, [facility] [address] [id number] [address] [place] [address], [place] [address] Nov, [facility] [address] [id number] [address] [place] [address], [place] [address] Oct, [facility] [address] [id number] [address] [place] [address], [place] [address] Oct, [facility] [address] [id number] [address] [place] [address], [place] [address] Oct, [facility] [address] [id number] [address] [place] [address], [place] [address] Oct, [facility] [address] [id number] [address] [place] [address], [place] [address] Sep, [facility] [address] [id number] [address] [place] [address], [place] [address] Sep, [facility] [address] [id number] [address] [place] [address], [place] [address] Sep, [facility] [address] [id number] [address] [place] [address], [place] [address] Sep, [facility] [address] [id number] [address] [place] [address], [place] [address] Sep, [facility] [address] [id number] [address] [place] [address], [place] [address] Sep, [facility] [address] [id number] [address] [place] [address], [place] [address] Sep, [facility] [address] [id number] [address] [place] [address], [place] [address] Sep, [facility] [address] [id number] [address] [place] [address], [place] [address] 30 Jul, 2013 [facility] [address] [id number] [address] [place] [address], [place] [address] Jul, [facility] [address] [id number] [address] [place] [address], [place] [address] May, [facility] [address] [id number] [address] [place] [address], [place] [address] Apr, [facility] [address] [id number] [address] [place] [address] [place] [address] 24 Apr, 2013 [facility] [address] [id number] [address] [place] [address], [place] [address] 20 Apr, 2013 [facility] [address] [id number] [address] [place] [address], [place] [address] Apr, [facility] [address] [id number] [address] [place] [address], [place] [address] Apr, [facility] [address] [id number] [address] [place] [address], [place] [address] 10 Apr, 2013 [facility] [address] [id number] [address] [place] [address], [place] [address] Apr, [facility] [address] [id number] [address] [place] [address], [place] [address] March, [facility] [address] [id number] [address] [place] [address], [place] [address] March, [facility] [address] [id number] [address] [place] [address], [place] [address] Jan, [facility] [address] [id number] [address] [place] [address], [place] [address] Dec, [facility] [address] [id number] [address] [place] [address], [place] [address] Nov, [facility] [address] [id number] [address] [place] [address], [place] [address] Nov, [facility] [address] [id number] [address] [place] [address], [place] [address] Oct, [facility] [address] [id number] [address] [place] [address], [place] [address] Oct, [facility] [address] [id number] [address] [place] [address], [place] [address] Oct, [facility] [address] [id number] [address] [place] [address], [place] [address] Oct, [facility] [address] [id number] [address] [place] [address], [place] [address] Oct, [facility] [address] [id number] [address] [place] [address], [place] [address] Oct, [facility] [address] [id number] [address] [place] [address], [place] [address] Sep, [facility] [address] [id number] [address] [place] [address], [place] [address] Sep, [facility] [address] [id number] [address] [place] [address], [place] [address] Sep, [facility] [address] [id number] [address] [place] [address], [place] [address] Sep, [facility] [address] [id number] [address] [place] [address], [place] [address] Sep, [facility] [address] [id number] [address] [place] [address], [place] [address] Sep, [facility] [address] [id number] [address] [place] [address], [place] [address] Sep, [facility] [address] [id number] [address] [place] [address], [place] [address] Sep, [facility] [address] [id number] [address] [place] [address], [place] [address] Sep, [facility] [address] [id number] [address] [place] [address], [place] [address] Sep, [facility] [address] [id number] [address] [place] [address], [place] [address] Sep, [facility] [address] [id number] [address] [place] [address], [place] [address] Sep, [facility] [address] [id number] [address] [place] [address], [place] [address] Aug, [facility] [address] [id number] [address] [place] [address], [place] [address] Aug, [facility] [address] [id number] [address] [place] [address], [place] [address] Aug, [facility] [address] [id number] [address] [place] [address], [place] [address] Aug, [facility] [address] [id number] [address] [place] [address], [place] [address] Aug, [facility] [address] [id number] [address] [place] [address], [place] [address] Aug, [facility] [address] [id number] [address] [place] [address], [place] [address] Aug, [facility] [address] [id number] [address] [place] [address], [place] [address] Aug, [facility] [address] [id number] [address] [place] [address], [place] [address] Aug, [facility] [address] [id number] [address] [place] [address], [place] [address] Aug, [facility] [address] [id number] [address] [place] [address], [place] [address] Jul, [facility] [address] [id number] [address] [place] [address], [place] [address] Jul, [facility] [address] [id number] [address] [place] [address], [place] [address] Jun, [facility] [address] [id number] [address] [place] [address], [place] [address] Jun, [facility] [address] [id number] [address] [place] [address], [place] [address] Jun, [facility] [address] [id number] [address] [place] [address], [place] [address] May, [facility] [address] [id number] [address] [place] [address], [place] [address] May, [facility] [address] [id number] [address] [place] [address], [place] [address] May, [facility] [address] [id number] [address] [place] [address], [place] [address] May, [facility] [address] [id number] [address] [place] [address], [place] [address] Apr, [facility] [address] [id number] [address] [place] [address], [place] [address] Apr, [facility] [address] [id number] [address] [place] [address], [place] [address] Apr, [facility] [address] [id number] [address] [place] [address], [place] [address] Apr, [facility] [address] [id number] [address] [place] [address], [place] [address] March, [facility] [address] [id number] [address] [place] [address], [place] [address] Jan, [facility] [address] [id number] [address] [place] [address], [place] [address] Dec, [facility] [address] [id number] [address] [place] [address], [place] [address] Dec, [facility] [address] [id number] [address] [place] [address], [place] [address] Oct, [facility] [address] [id number] [address] [place] [address], [place] [address] Oct, [facility] [address] [id number] [address] [place] [address], [place] [address] Oct, [facility] [address] [id number] [address] [place] [address], [place] [address] Oct, [facility] [address] [id number] [address] [place] [address], [place] [address] 15 Oct, 2011 [facility] [address] [id number] [address] [place] [address], [place] [address] Oct, [facility] [address] [id number] [address] [place] [address] Oct, [facility] [address] [id number] [address] [place] [address] Oct, [facility] [address] [id number] [address] [place] [id number] Sep, [facility] [address] [id number] [address] [place] [address] Sep, [facility] [address] [id number] [address] [place] [address] Sep, [facility] [address] [id number] [address] [place] [address] Sep, [facility] [address] [facility] [id number] [address] [place] [address] Aug, [facility] [address] [id number] [address] [place], [place] [address] 15 Jul, 2011 IMMUNIZATIONS No Known Immunizations SOCIAL HISTORY Never Assessed REASON FOR VISIT Triage--ADaviedRN PLAN OF CARE VITAL SIGNS MEDICATIONS Unknown Medications RESULTS No Results PROCEDURES No Known procedures INSTRUCTIONS MEDICATIONS ADMINISTERED No Known Medications MEDICAL (GENERAL) HISTORY Type Description Date Medical History seizures Medical History allergic rhinitis Medical History mood disorder Medical History back pain
--- OUTSIDE RECORDS SUMMARY | 2020-02-03 17:09 | XMS REPORT ---
Author Author Derek KEITH Organization [facility] Address [address] [place] [address] Care Team Providers Care Test Borer Name Role Phone ARMANI KEITH Unavailable PROBLEMS Type Condition ICD9-CM Code WTR75-WA Code Onset Dates Condition S tatus SNOMED Code Problem Anxiety F41.9 Active 34537270 Problem Seasonal allergic rhinitis due to other allergic trigger J30.89 Active 206117070 Problem Bladder spasms N32.89 Active 34624 7006 ALLERGIES No Information ENCOUNTERS Encounter Location Date Diagnosis [id number] [facility] [id number] [address] [place] [address] March, Elevated liver enzymes R74.8 and Abnormal CBC R79.89 [facility] [address] [facility] [id number] [address] [place] [address] March, Encounter for immunization Z 23 [facility] [address] [facility] [id number] [address] [place] [address] March, [facility] [address] [facility] [id number] [address] [place] [address] March, [facility] [address] [facility] [id number] [address] [place] [address] March, Elevated liver enzymes R74.8 and Abnormal CBC R79.89 [facility] [address] [facility] [id number] [address] [place] [address] March, Anxiety F41.9 ; Bronchitis J 40 and Seasonal allergic rhinitis due to other allergic trigger J30.89 [facility] [address] [facility] [id number] [address] [place] [address] March, [facility] [address] [facility] [id number] [address] [place] [address] Feb, [place] [address] [address] Feb, Pharyngitis due to other org anism J02.8 [place] [address] [address] Feb, Pharyngitis due to other org anism J02.8 [facility] [address] [address] Feb, Sore throat J02.9 ; Fatigue, unspecified type R53.83 and Strep pharyngitis J02.0 [facility] [address] [address] Feb, Acute nasopharyngitis J00 [facility] [place] [address] [address] Feb, Lower abdominal pain R10.30 [facility] [place] [address] [address] Feb, Bladder spasms N32.89 and Ur inary frequency R35.0 [facility] [place] [address] [address] Jan, Strep throat J02.0 [facility] [place] [address] [address] Dec, Seasonal allergic rhinitis, unspecified trigger J30.2 [place] [address] [address] Nov, Acute suppurative otitis med ia of both ears without spontaneous rupture of tympanic membranes, recurrence not specified H66.003 [facility] [address] [address] Nov, Acute suppurative otitis med ia of both ears without spontaneous rupture of tympanic membranes, recurrence not specified H66.003 [facility] [address] [place] [address] Nov, Acute suppurative otitis med ia of both ears without spontaneous rupture of tympanic membranes, recurrence not specified H66.003 [place] [address] [address] Oct, [place] [address] [address] 21 Jul, 2017 Seizures R56.9 [place] [address] [address] 14 Jul, 2017 Seizures R56.9 ; Other chron ic pain G89.29 ; Pain in left ankle and joints of left foot M25.572 and Allergic rhinitis, unspecified allergic rhinitis trigger, unspecified rhinitis seasonality J30.9 [facility] [place] [address] [address] 07 Jul, 2017 Acute seasonal allergic rhin itis due to other allergen J30.89 [facility] [place] [address] [address] Jun, Left foot pain M79.672 and L eft lateral ankle pain M25.572 [place] [address] [address] Aug, Allergic rhinitis, unspecifi ed allergic rhinitis trigger, unspecified rhinitis seasonality J30.9 ; Low back pain M54.5 and Other chronic pain G89.29 [facility] N [address] [address] Jul, [facility] N [address] [address] 12 Jul, 2016 Low back pain M54.5 and Othe r chronic pain G89.29 [facility] [place] [address] [address] 09 Jul, 2016 Acute maxillary sinusitis, r ecurrence not specified J01.00 [facility] [address] [address] Jun, Cellulitis of left lower ext remity L03.116 [facility] [place] [address] [address] Apr, Wrist pain, left M25.532 [facility] [place] [address] [address] March, Low back pain M54.5 ; Fever, unspecified R50.9 and Strep pharyngitis J02.0 [facility] [place] [address] [address] March, Hordeolum externum of left u pper eyelid H00.014 and Acute follicular conjunctivitis of left eye H10.012 [place] [address] [address] Jan, Folliculitis L73.9 [facility] [place] [address] [address] Jan, Screen for sexually transmit yayo diseases Z11.3 [place] [address] [address] Nov, [place] [address] [address] Nov, Gen idiopathic epilepsy, not intractable, 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 [facility] [place] [address] [address] Nov, Malaise R53.81 ; Upper respi ratory infection J06.9 and Pharyngitis J02.9 [facility] [place] [address] [address] Nov, Acute pharyngitis, unspecifi ed J02.9 ; Acute upper respiratory infection, unspecified J06.9 ; Other viral agents as the cause of diseases classified elsewhere B97.89 and Allergic rhinitis J30.9 [facility] [address] [id number] [address] [place] [address] 04 Oct, 2015 Testicular pain N50.8 [facility] [address] [id number] [address] [place] [address] 15 Jul, 2015 Sinusitis 473.9 [facility] [address] [id number] [address] [place] [address] 12 Apr, 2015 Back pain 724.5 [facility] [address] [id number] [address] [place] [address] 11 Apr, 2015 [facility] [address] [id number] [address] [place] [address] Feb, [facility] [address] [id number] [address] [place] [address] Feb, [facility] [address] [id number] [address] [place] [address] Jan, [facility] [address] [id number] [address] [place] [address] Nov, [facility] [address] [id number] [address] [place] [address] Nov, [facility] [address] [id number] [address] [place] [address] Nov, [facility] [address] [id number] [address] [place] [address] Nov, [facility] [address] [id number] [address] [place] [address] Oct, [facility] [address] [id number] [address] [place] [address] Oct, [facility] [address] [id number] [address] [place] [address] Aug, [facility] [address] [id number] [address] [place] [address] Aug, [facility] [address] [id number] [facility] [address] Aug, [facility] [address] [id number] [facility] [address] Aug, [facility] [address] [id number] [facility] [address] Aug, [facility] [address] [id number] [address] [place] [address], [place] [address] Aug, [facility] [address] [id number] [address] [place] [address], [place] [address] Aug, [facility] [address] [id number] [address] [place] [address], [place] [address] Aug, [facility] [address] [id number] [address] [place] [address], [place] [address] Jun, [facility] [address] [id number] [address] [place] [address], [place] [address] Jun, [facility] [address] [id number] [address] [place] [address], [place] [address] Jun, [facility] [address] [id number] [address] [place] [address], [place] [address] Jun, [facility] [address] [id number] [address] [place] [address], [place] [address] Jun, [facility] [address] [id number] [address] [place] [address], [place] [address] Jun, [facility] [address] [id number] [address] [place] [address], [place] [address] Jun, [facility] [address] [id number] [address] [place] [address], [place] [address] Jun, [facility] [address] [id number] [address] [place] [address], [place] [address] Jun, [facility] [address] [id number] [address] [place] [address], [place] [address] Jun, [facility] [address] [id number] [address] [place] [address], [place] [address] May, [facility] [address] [id number] [address] [place] [address], [place] [address] May, [facility] [address] [id number] [address] [place] [address], [place] [address] March, [facility] [address] [id number] [address] [place] [address], [place] [address] March, [facility] [address] [id number] [address] [place] [address], [place] [address] March, [facility] [address] [id number] [address] [place] [address], [place] [address] March, [facility] [address] [id number] [address] [place] [address], [place] [address] Feb, [facility] [address] [id number] [address] [place] [address], [place] [address] Feb, [facility] [address] [id number] [address] [place] [address], [place] [address] Jan, [facility] [address] [id number] [address] [place] [address], [place] [address] Jan, [facility] [address] [id number] [address] [place] [address], [place] [address] Jan, [facility] [address] [id number] [address] [place] [address], [place] [address] Jan, [facility] [address] [id number] [address] [place] [address], [place] [address] Dec, [facility] [address] [id number] [address] [place] [address], [place] [address] Dec, [facility] [address] [id number] [address] [place] [address], [place] [address] Dec, [facility] [address] [id number] [address] [place] [address], [place] [address] 14 Dec, 2013 [facility] [address] [id number] [address] [place] [address], [place] [address] 11 Dec, 2013 [facility] [address] [id number] [address] [place] [address], [place] [address] 11 Dec, 2013 [facility] [address] [id number] [address] [place] [address], [place] [address] Nov, [facility] [address] [id number] [address] [place] [address], [place] [address] Nov, [facility] [address] [id number] [address] [place] [address], [place] [address] Nov, [facility] [address] [id number] [address] [place] [address], [place] [address] Nov, [facility] [address] [id number] [address] [place] [address], [place] [address] Nov, [facility] [address] [id number] [address] [place] [address], [place] [address] Nov, [facility] [address] [id number] [address] [place] [address], [place] [address] Nov, [facility] [address] [id number] [address] [place] [address], [place] [address] Nov, [facility] [address] [id number] [address] [place] [address], [place] [address] Nov, [facility] [address] [id number] [address] [place] [address], [place] [address] Nov, [facility] [address] [id number] [address] [place] [address], [place] [address] Nov, [facility] [address] [id number] [address] [place] [address], [place] [address] Nov, [facility] [address] [id number] [address] [place] [address], [place] [address] Oct, [facility] [address] [id number] [address] [place] [address], [place] [address] Oct, [facility] [address] [id number] [address] [place] [address], [place] [address] Oct, [facility] [address] [id number] [address] [place] [address], [place] [address] Oct, [facility] [address] [id number] [address] [place] [address], [place] [address] Sep, [facility] [address] [id number] [address] [place] [address], [place] [address] Sep, [facility] [address] [id number] [address] [place] [address], [place] [address] Sep, [facility] [address] [id number] [address] [place] [address], [place] [address] Sep, [facility] [address] [id number] [address] [place] [address], [place] [address] Sep, [facility] [address] [id number] [address] [place] [address], [place] [address] Sep, [facility] [address] [id number] [address] [place] [address], [place] [address] Sep, [facility] [address] [id number] [address] [place] [address], [place] [address] Sep, [facility] [address] [id number] [address] [place] [address], [place] [address] 30 Jul, 2013 [facility] [address] [id number] [address] [place] [address], [place] [address] Jul, [facility] [address] [id number] [address] [place] [address], [place] [address] May, [facility] [address] [id number] [address] [place] [address], [place] [address] Apr, [facility] [address] [id number] [address] [place] [address] [place] [address] 24 Apr, 2013 [facility] [address] [id number] [address] [place] [address], [place] [address] 20 Apr, 2013 [facility] [address] [id number] [address] [place] [address], [place] [address] Apr, [facility] [address] [id number] [address] [place] [address], [place] [address] Apr, [facility] [address] [id number] [address] [place] [address], [place] [address] 10 Apr, 2013 [facility] [address] [id number] [address] [place] [address], [place] [address] Apr, [facility] [address] [id number] [address] [place] [address], [place] [address] March, [facility] [address] [id number] [address] [place] [address], [place] [address] March, [facility] [address] [id number] [address] [place] [address], [place] [address] Jan, [facility] [address] [id number] [address] [place] [address], [place] [address] Dec, [facility] [address] [id number] [address] [place] [address], [place] [address] Nov, [facility] [address] [id number] [address] [place] [address], [place] [address] Nov, [facility] [address] [id number] [address] [place] [address], [place] [address] Oct, [facility] [address] [id number] [address] [place] [address], [place] [address] Oct, [facility] [address] [id number] [address] [place] [address], [place] [address] Oct, [facility] [address] [id number] [address] [place] [address], [place] [address] Oct, [facility] [address] [id number] [address] [place] [address], [place] [address] Oct, [facility] [address] [id number] [address] [place] [address], [place] [address] Oct, [facility] [address] [id number] [address] [place] [address], [place] [address] Sep, [facility] [address] [id number] [address] [place] [address], [place] [address] Sep, [facility] [address] [id number] [address] [place] [address], [place] [address] Sep, [facility] [address] [id number] [address] [place] [address], [place] [address] Sep, [facility] [address] [id number] [address] [place] [address], [place] [address] Sep, [facility] [address] [id number] [address] [place] [address], [place] [address] Sep, [facility] [address] [id number] [address] [place] [address], [place] [address] Sep, [facility] [address] [id number] [address] [place] [address], [place] [address] Sep, [facility] [address] [id number] [address] [place] [address], [place] [address] Sep, [facility] [address] [id number] [address] [place] [address], [place] [address] Sep, [facility] [address] [id number] [address] [place] [address], [place] [address] Sep, [facility] [address] [id number] [address] [place] [address], [place] [address] Sep, [facility] [address] [id number] [address] [place] [address], [place] [address] Aug, [facility] [address] [id number] [address] [place] [address], [place] [address] Aug, [facility] [address] [id number] [address] [place] [address], [place] [address] Aug, [facility] [address] [id number] [address] [place] [address], [place] [address] Aug, [facility] [address] [id number] [address] [place] [address], [place] [address] Aug, [facility] [address] [id number] [address] [place] [address], [place] [address] Aug, [facility] [address] [id number] [address] [place] [address], [place] [address] Aug, [facility] [address] [id number] [address] [place] [address], [place] [address] Aug, [facility] [address] [id number] [address] [place] [address], [place] [address] Aug, [facility] [address] [id number] [address] [place] [address], [place] [address] Aug, [facility] [address] [id number] [address] [place] [address], [place] [address] Jul, [facility] [address] [id number] [address] [place] [address], [place] [address] Jul, [facility] [address] [id number] [address] [place] [address], [place] [address] Jun, [facility] [address] [id number] [address] [place] [address], [place] [address] Jun, [facility] [address] [id number] [address] [place] [address], [place] [address] Jun, [facility] [address] [id number] [address] [place] [address], [place] [address] May, [facility] [address] [id number] [address] [place] [address], [place] [address] May, [facility] [address] [id number] [address] [place] [address], [place] [address] May, [facility] [address] [id number] [address] [place] [address], [place] [address] May, [facility] [address] [id number] [address] [place] [address], [place] [address] Apr, [facility] [address] [id number] [address] [place] [address], [place] [address] Apr, [facility] [address] [id number] [address] [place] [address], [place] [address] Apr, [facility] [address] [id number] [address] [place] [address], [place] [address] Apr, [facility] [address] [id number] [address] [place] [address], [place] [address] March, [facility] [address] [id number] [address] [place] [address], [place] [address] Jan, [facility] [address] [id number] [address] [place] [address], [place] [address] Dec, [facility] [address] [id number] [address] [place] [address], [place] [address] Dec, [facility] [address] [id number] [address] [place] [address], [place] [address] Oct, [facility] [address] [id number] [address] [place] [address], [place] [address] Oct, [facility] [address] [id number] [address] [place] [address], [place] [address] Oct, [facility] [address] [id number] [address] [place] [address], [place] [address] Oct, [facility] [address] [id number] [address] [place] [address], [place] [address] 15 Oct, 2011 [facility] [address] [id number] [address] [place] [address], [place] [address] Oct, [facility] [address] [id number] [address] [place] [id number] Oct, [facility] [address] [id number] [address] [place] [id number] Oct, [facility] [address] [id number] [address] [place] [id number] Sep, [facility] [address] [id number] [address] [place] [id number] Sep, [facility] [address] [id number] [address] [place] [id number] Sep, [facility] [address] [id number] [address] [place] [id number] Sep, [facility] [address] [facility] [id number] [address] [place] [id number] Aug, [facility] [address] [id number] [address] [place] [id number] Jul, IMMUNIZATIONS No Known Immunizations SOCIAL HISTORY Never Assessed REASON FOR VISIT PLAN OF CARE VITAL SIGNS MEDICATIONS Unknown Medications RESULTS No Results PROCEDURES No Known procedures INSTRUCTIONS MEDICATIONS ADMINISTERED No Known Medications MEDICAL (GENERAL) HISTORY Type Description Date Medical History seizures Medical History allergic rhinitis Medical History mood disorder Medical History back pain
--- OUTSIDE RECORDS SUMMARY | 2020-02-03 17:09 | XMS REPORT ---
Author Author Derek KEITH Organization [facility] Address [address] [place] [address] Care Team Providers Care Accessibility Lift Technician Name Role Phone ARMANI KEITH Unavailable PROBLEMS Type Condition ICD9-CM Code SCM13-WZ Code Onset Dates Condition S tatus SNOMED Code Problem Anxiety F41.9 Active 57759267 Problem Seasonal allergic rhinitis due to other allergic trigger J30.89 Active 245056052 Problem Bladder spasms N32.89 Active 76103 7006 ALLERGIES No Information ENCOUNTERS Encounter Location Date Diagnosis [place] [id number] [facility] [id number] [address] [place] [address] March, Elevated liver enzymes R74.8 and Abnormal CBC R79.89 [facility] [address] [facility] [id number] [address] [place] [address] March, Encounter for immunization Z 23 [facility] [address] [facility] [id number] [address] [place] [address] March, [facility] [address] [facility] [id number] [address] [place] [address] March, [facility] [address] [facility] [id number] [address] [place] [address] March, Elevated liver enzymes R74.8 and Abnormal CBC R79.89 [facility] [address] [facility] [id number] [address] [place] [address] March, Anxiety F41.9 ; Bronchitis J 40 and Seasonal allergic rhinitis due to other allergic trigger J30.89 [facility] [address] [facility] [id number] [address] [place] [address] March, [facility] [address] [facility] [id number] [address] [place] [address] Feb, [place] [address] [address] Feb, Pharyngitis due to other org anism J02.8 [place] [address] [address] Feb, Pharyngitis due to other org anism J02.8 [facility] [address] [address] Feb, Sore throat J02.9 ; Fatigue, unspecified type R53.83 and Strep pharyngitis J02.0 [facility] [address] [address] Feb, Acute nasopharyngitis J00 [facility] [place] [address] [address] Feb, Lower abdominal pain R10.30 [facility] [place] [address] [address] Feb, Bladder spasms N32.89 and Ur inary frequency R35.0 [facility] [place] [address] [address] Jan, Strep throat J02.0 [facility] [place] [address] [address] Dec, Seasonal allergic rhinitis, unspecified trigger J30.2 [place] [address] [address] Nov, Acute suppurative otitis med ia of both ears without spontaneous rupture of tympanic membranes, recurrence not specified H66.003 [facility] [address] [address] Nov, Acute suppurative otitis med ia of both ears without spontaneous rupture of tympanic membranes, recurrence not specified H66.003 [facility] [address] [place] [address] Nov, Acute suppurative otitis med ia of both ears without spontaneous rupture of tympanic membranes, recurrence not specified H66.003 [place] [address] [address] Oct, [place] [address] [address] 21 Jul, 2017 Seizures R56.9 [place] [address] [address] 14 Jul, 2017 Seizures R56.9 ; Other chron ic pain G89.29 ; Pain in left ankle and joints of left foot M25.572 and Allergic rhinitis, unspecified allergic rhinitis trigger, unspecified rhinitis seasonality J30.9 [facility] [place] [address] [address] 07 Jul, 2017 Acute seasonal allergic rhin itis due to other allergen J30.89 [facility] [place] [address] [address] Jun, Left foot pain M79.672 and L eft lateral ankle pain M25.572 [place] [address] [address] Aug, Allergic rhinitis, unspecifi ed allergic rhinitis trigger, unspecified rhinitis seasonality J30.9 ; Low back pain M54.5 and Other chronic pain G89.29 [facility] [address] [address] Jul[facility] [address] [address] 12 Jul, 2016 Low back pain M54.5 and Othe r chronic pain G89.29 [facility] [place] [address] [address] 09 Jul, 2016 Acute maxillary sinusitis, r ecurrence not specified J01.00 [facility] [address] [address] Jun, Cellulitis of left lower ext remity L03.116 [facility] [place] [address] [address] Apr, Wrist pain, left M25.532 [facility] [place] [address] [address] March, Low back pain M54.5 ; Fever, unspecified R50.9 and Strep pharyngitis J02.0 [facility] [place] [address] [address] March, Hordeolum externum of left u pper eyelid H00.014 and Acute follicular conjunctivitis of left eye H10.012 [place] [address] [address] Jan, Folliculitis L73.9 [facility] [place] [address] [address] Jan, Screen for sexually transmit yayo diseases Z11.3 [place] [address] [address] Nov, [place] [address] [address] Nov, Gen idiopathic epilepsy, not intractable, 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 [facility] [place] [address] [address] Nov, Malaise R53.81 ; Upper respi ratory infection J06.9 and Pharyngitis J02.9 [facility] [place] [address] [address] Nov, Acute pharyngitis, unspecifi ed J02.9 ; Acute upper respiratory infection, unspecified J06.9 ; Other viral agents as the cause of diseases classified elsewhere B97.89 and Allergic rhinitis J30.9 [facility] [address] [id number] [address] [place] [address] 04 Oct, 2015 Testicular pain N50.8 [facility] [address] [id number] [address] [place] [address] 15 Jul, 2015 Sinusitis 473.9 [facility] [address] [id number] [address] [place] [address] 12 Apr, 2015 Back pain 724.5 [facility] [address] [id number] [address] [place] [address] 11 Apr, 2015 [facility] [address] [id number] [address] [place] [address] Feb, [facility] [address] [id number] [address] [place] [address] Feb, [facility] [address] [id number] [address] [place] [address] Jan, [facility] [address] [id number] [address] [place] [address] Nov, [facility] [address] [id number] [address] [place] [address] Nov, [facility] [address] [id number] [address] [place] [address] Nov, [facility] [address] [id number] [address] [place] [address] Nov, [facility] [address] [id number] [address] [place] [address] Oct, [facility] [address] [id number] [address] [place] [address] Oct, [facility] [address] [id number] [address] [place] [address] Aug, [facility] [address] [id number] [address] [place] [address] Aug, [facility] [address] [id number] [facility] [place] [address] Aug, [facility] [address] [id number] [facility] [place] [address] Aug, [facility] [address] [id number] [facility] [place] [address] Aug, [facility] [address] [id number] [address] [place] [address], [place] [address] Aug, [facility] [address] [id number] [address] [place] [address], [place] [address] Aug, [facility] [address] [id number] [address] [place] [address], [place] [address] Aug, [facility] [address] [id number] [address] [place] [address], [place] [address] Jun, [facility] [address] [id number] [address] [place] [address], [place] [address] Jun, [facility] [address] [id number] [address] [place] [address], [place] [address] Jun, [facility] [address] [id number] [address] [place] [address], [place] [address] Jun, [facility] [address] [id number] [address] [place] [address], [place] [address] Jun, [facility] [address] [id number] [address] [place] [address], [place] [address] Jun, [facility] [address] [id number] [address] [place] [address], [place] [address] Jun, [facility] [address] [id number] [address] [place] [address], [place] [address] Jun, [facility] [address] [id number] [address] [place] [address], [place] [address] Jun, [facility] [address] [id number] [address] [place] [address], [place] [address] Jun, [facility] [address] [id number] [address] [place] [address], [place] [address] May, [facility] [address] [id number] [address] [place] [address], [place] [address] May, [facility] [address] [id number] [address] [place] [address], [place] [address] March, [facility] [address] [id number] [address] [place] [address], [place] [address] March, [facility] [address] [id number] [address] [place] [address], [place] [address] March, [facility] [address] [id number] [address] [place] [address], [place] [address] March, [facility] [address] [id number] [address] [place] [address], [place] [address] Feb, [facility] [address] [id number] [address] [place] [address], [place] [address] Feb, [facility] [address] [id number] [address] [place] [address], [place] [address] Jan, [facility] [address] [id number] [address] [place] [address], [place] [address] Jan, [facility] [address] [id number] [address] [place] [address], [place] [address] Jan, [facility] [address] [id number] [address] [place] [address], [place] [address] Jan, [facility] [address] [id number] [address] [place] [address], [place] [address] Dec, [facility] [address] [id number] [address] [place] [address], [place] [address] Dec, [facility] [address] [id number] [address] [place] [address], [place] [address] Dec, [facility] [address] [id number] [address] [place] [address], [place] [address] 14 Dec, 2013 [facility] [address] [id number] [address] [place] [address], [place] [address] 11 Dec, 2013 [facility] [address] [id number] [address] [place] [address], [place] [address] 11 Dec, 2013 [facility] [address] [id number] [address] [place] [address], [place] [address] Nov, [facility] [address] [id number] [address] [place] [address], [place] [address] Nov, [facility] [address] [id number] [address] [place] [address], [place] [address] Nov, [facility] [address] [id number] [address] [place] [address], [place] [address] Nov, [facility] [address] [id number] [address] [place] [address], [place] [address] Nov, [facility] [address] [id number] [address] [place] [address], [place] [address] Nov, [facility] [address] [id number] [address] [place] [address], [place] [address] Nov, [facility] [address] [id number] [address] [place] [address], [place] [address] Nov, [facility] [address] [id number] [address] [place] [address], [place] [address] Nov, [facility] [address] [id number] [address] [place] [address], [place] [address] Nov, [facility] [address] [id number] [address] [place] [address], [place] [address] Nov, [facility] [address] [id number] [address] [place] [address], [place] [address] Nov, [facility] [address] [id number] [address] [place] [address], [place] [address] Oct, [facility] [address] [id number] [address] [place] [address], [place] [address] Oct, [facility] [address] [id number] [address] [place] [address], [place] [address] Oct, [facility] [address] [id number] [address] [place] [address], [place] [address] Oct, [facility] [address] [id number] [address] [place] [address], [place] [address] Sep, [facility] [address] [id number] [address] [place] [address], [place] [address] Sep, [facility] [address] [id number] [address] [place] [address], [place] [address] Sep, [facility] [address] [id number] [address] [place] [address], [place] [address] Sep, [facility] [address] [id number] [address] [place] [address], [place] [address] Sep, [facility] [address] [id number] [address] [place] [address], [place] [address] Sep, [facility] [address] [id number] [address] [place] [address], [place] [address] Sep, [facility] [address] [id number] [address] [place] [address], [place] [address] Sep, [facility] [address] [id number] [address] [place] [address], [place] [address] 30 Jul, 2013 [facility] [address] [id number] [address] [place] [address], [place] [address] Jul, [facility] [address] [id number] [address] [place] [address], [place] [address] May, [facility] [address] [id number] [address] [place] [address], [place] [address] Apr, [facility] [address] [id number] [address] [place] [address] [place] [address] 24 Apr, 2013 [facility] [address] [id number] [address] [place] [address], [place] [address] 20 Apr, 2013 [facility] [address] [id number] [address] [place] [address], [place] [address] Apr, [facility] [address] [id number] [address] [place] [address], [place] [address] Apr, [facility] [address] [id number] [address] [place] [address], [place] [address] 10 Apr, 2013 [facility] [address] [id number] [address] [place] [address], [place] [address] Apr, [facility] [address] [id number] [address] [place] [address], [place] [address] March, [facility] [address] [id number] [address] [place] [address], [place] [address] March, [facility] [address] [id number] [address] [place] [address], [place] [address] Jan, [facility] [address] [id number] [address] [place] [address], [place] [address] Dec, [facility] [address] [id number] [address] [place] [address], [place] [address] Nov, [facility] [address] [id number] [address] [place] [address], [place] [address] Nov, [facility] [address] [id number] [address] [place] [address], [place] [address] Oct, [facility] [address] [id number] [address] [place] [address], [place] [address] Oct, [facility] [address] [id number] [address] [place] [address], [place] [address] Oct, [facility] [address] [id number] [address] [place] [address], [place] [address] Oct, [facility] [address] [id number] [address] [place] [address], [place] [address] Oct, [facility] [address] [id number] [address] [place] [address], [place] [address] Oct, [facility] [address] [id number] [address] [place] [address], [place] [address] Sep, [facility] [address] [id number] [address] [place] [address], [place] [address] Sep, [facility] [address] [id number] [address] [place] [address], [place] [address] Sep, [facility] [address] [id number] [address] [place] [address], [place] [address] Sep, [facility] [address] [id number] [address] [place] [address], [place] [address] Sep, [facility] [address] [id number] [address] [place] [address], [place] [address] Sep, [facility] [address] [id number] [address] [place] [address], [place] [address] Sep, [facility] [address] [id number] [address] [place] [address], [place] [address] Sep, [facility] [address] [id number] [address] [place] [address], [place] [address] Sep, [facility] [address] [id number] [address] [place] [address], [place] [address] Sep, [facility] [address] [id number] [address] [place] [address], [place] [address] Sep, [facility] [address] [id number] [address] [place] [address], [place] [address] Sep, [facility] [address] [id number] [address] [place] [address], [place] [address] Aug, [facility] [address] [id number] [address] [place] [address], [place] [address] Aug, [facility] [address] [id number] [address] [place] [address], [place] [address] Aug, [facility] [address] [id number] [address] [place] [address], [place] [address] Aug, [facility] [address] [id number] [address] [place] [address], [place] [address] Aug, [facility] [address] [id number] [address] [place] [address], [place] [address] Aug, [facility] [address] [id number] [address] [place] [address], [place] [address] Aug, [facility] [address] [id number] [address] [place] [address], [place] [address] Aug, [facility] [address] [id number] [address] [place] [address], [place] [address] Aug, [facility] [address] [id number] [address] [place] [address], [place] [address] Aug, [facility] [address] [id number] [address] [place] [address], [place] [address] Jul, [facility] [address] [id number] [address] [place] [address], [place] [address] Jul, [facility] [address] [id number] [address] [place] [address], [place] [address] Jun, [facility] [address] [id number] [address] [place] [address], [place] [address] Jun, [facility] [address] [id number] [address] [place] [address], [place] [address] Jun, [facility] [address] [id number] [address] [place] [address], [place] [address] May, [facility] [address] [id number] [address] [place] [address], [place] [address] May, [facility] [address] [id number] [address] [place] [address], [place] [address] May, [facility] [address] [id number] [address] [place] [address], [place] [address] May, [facility] [address] [id number] [address] [place] [address], [place] [address] Apr, [facility] [address] [id number] [address] [place] [address], [place] [address] Apr, [facility] [address] [id number] [address] [place] [address], [place] [address] Apr, [facility] [address] [id number] [address] [place] [address], [place] [address] Apr, [facility] [address] [id number] [address] [place] [address], [place] [address] March, [facility] [address] [id number] [address] [place] [address], [place] [address] Jan, [facility] [address] [id number] [address] [place] [address], [place] [address] Dec, [facility] [address] [id number] [address] [place] [address], [place] [address] Dec, [facility] [address] [id number] [address] [place] [address], [place] [address] Oct, [facility] [address] [id number] [address] [place] [address], [place] [address] Oct, [facility] [address] [id number] [address] [place] [address], [place] [address] Oct, [facility] [address] [id number] [address] [place] [address], [place] [address] Oct, [facility] [address] [id number] [address] [place] [address], [place] [address] 15 Oct, 2011 [facility] [address] [id number] [address] [place] [address], [place] [address] Oct, [facility] [address] [id number] [address] [place] [address] Oct, [facility] [address] [id number] [address] [place] [address] Oct, [facility] [address] [id number] [address] [place] [place] [phone] Sep, [facility] [address] [id number] [address] [place] [phone] Sep, [facility] [address] [id number] [address] [place] [phone] Sep, [facility] [address] [id number] [address] [place] [phone] Sep, [facility] [address] [facility] [id number] [address] [place] [phone] Aug, [facility] [address] [id number] [address] [place] [phone] Jul, IMMUNIZATIONS No Known Immunizations SOCIAL HISTORY Never Assessed REASON FOR VISIT Lab results PLAN OF CARE VITAL SIGNS MEDICATIONS Unknown Medications RESULTS No Results PROCEDURES No Known procedures INSTRUCTIONS MEDICATIONS ADMINISTERED No Known Medications MEDICAL (GENERAL) HISTORY Type Description Date Medical History seizures Medical History allergic rhinitis Medical History mood disorder Medical History back pain
--- OUTSIDE RECORDS SUMMARY | 2020-02-03 17:09 | XMS REPORT ---
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 Role Phone ARMANI KEITH Unavailable PROBLEMS Type Condition ICD9-CM Code QAN11-RP Code Onset Dates Condition S tatus SNOMED Code Problem Anxiety F41.9 Active 28624750 Problem Seasonal allergic rhinitis due to other allergic trigger J30.89 Active 792445316 Problem Bladder spasms N32.89 Active 16865 7006 ALLERGIES Substance Reaction Event Type Date Status Sulfamethoxazole-TMP DS other Drug Allergy March, Acti ve Cephalexin rash Drug Allergy March, Active Amoxicillin Unknown Drug Allergy March, Active ENCOUNTERS Encounter Location Date Diagnosis [place] [address] [place] [id number] [place] [address] March, Elevated liver enzymes R74.8 and Abnormal CBC R79.89 [place] [address] [address] March, Encounter for immunization Z 23 [place] [address] [place] [id number] [place] [address] March, [place] [address] [place] [id number] [place] [address] March, [place] [address] [place] [id number] [place] [address] March, Elevated liver enzymes R74.8 and Abnormal CBC R79.89 [place] [address] [place] [id number] [place] [address] March, Anxiety F41.9 ; Bronchitis J 40 and Seasonal allergic rhinitis due to other allergic trigger J30.89 [place] [address] [place] [id number] [place] [address] March, [facility] [address] [place] [id number] [address] [place] [address] Feb, [facility] [address] [facility] [id number] [address] [place] [address] Feb, Pharyngitis due to other org anism J02.8 [place] [address] [place] [id number] [address] [place] [address] Feb, Pharyngitis due to other org anism J02.8 [facility] [place] [id number] [place] [address] Feb, Sore throat J02.9 ; Fatigue, unspecified type R53.83 and Strep pharyngitis J02.0 [facility] [address] [address] Feb, Acute nasopharyngitis J00 [facility] [address] [address] Feb, Lower abdominal pain R10.30 [facility] [address] [address] Feb, Bladder spasms N32.89 and Ur inary frequency R35.0 [facility] [place] [id number] [place] [address] Jan, Strep throat J02.0 [facility] [address] [address] Dec, Seasonal allergic rhinitis, unspecified trigger J30.2 [place] [address] [place] [id number] [place] [address] Nov, Acute suppurative otitis med ia of both ears without spontaneous rupture of tympanic membranes, recurrence not specified H66.003 [facility] [place] [id number] [address] [place] [address] Nov, Acute suppurative otitis med ia of both ears without spontaneous rupture of tympanic membranes, recurrence not specified H66.003 [facility] [place] [address] [address] Nov, Acute suppurative otitis med ia of both ears without spontaneous rupture of tympanic membranes, recurrence not specified H66.003 [place] [address] [address] Oct, [place] [address] [address] 21 Jul, 2017 Seizures R56.9 [place] [address] [address] 14 Jul, 2017 Seizures R56.9 ; Other chron ic pain G89.29 ; Pain in left ankle and joints of left foot M25.572 and Allergic rhinitis, unspecified allergic rhinitis trigger, unspecified rhinitis seasonality J30.9 [facility] [place] [address] [address] 07 Jul, 2017 Acute seasonal allergic rhin itis due to other allergen J30.[address] [facility] WALK IN [address] [address] Jun, Left foot pain M79.672 and L eft lateral ankle pain M25.572 [place] [address] [address] Aug, Allergic rhinitis, unspecifi ed allergic rhinitis trigger, unspecified rhinitis seasonality J30.9 ; Low back pain M54.5 and Other chronic pain G89.29 [facility] [address] [address] Jul, [facility] [address] [address] 12 Jul, 2016 Low back pain M54.5 and Othe r chronic pain G89.29 [facility] [place] [address] [address] Jul, Acute maxillary sinusitis, r ecurrence not specified J01.00 [facility] [place] [address] [address] Jun, Cellulitis of left lower ext remity L03.[address] [facility] WALK IN [place] [address] [address] Apr, Wrist pain, left M25.[address] [facility] WALK IN [place] [address] [address] March, Low back pain M54.5 ; Fever, unspecified R50.9 and Strep pharyngitis J02.[address] [facility] WALK IN [place] [address] [address] March, Hordeolum externum of left u pper eyelid H00.014 and Acute follicular conjunctivitis of left eye H10.012 [place] [address] [address] Jan, Folliculitis L73.[address] [facility] WALK IN [place] [address] [address] Jan, Screen for sexually transmit yayo diseases Z11.3 [place] [address] [address] Nov, [place] [address] [address] Nov, Gen idiopathic epilepsy, not intractable, 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 [facility] WALK IN [place] [address] [address] Nov, Malaise R53.81 ; Upper respi ratory infection J06.9 and Pharyngitis J02.[address] [facility] WALK IN [place] [address] [address] Nov, Acute pharyngitis, unspecifi ed J02.9 ; Acute upper respiratory infection, unspecified J06.9 ; Other viral agents as the cause of diseases classified elsewhere B97.89 and Allergic rhinitis J30.9 [facility] [address] [id number] [address] [place] [address] Oct, Testicular pain N50.8 [facility] [address] [facility] [id number] [address] [place] [address] 15 Jul, 2015 Sinusitis 473.9 [facility] [address] [facility] [id number] [address] [place] [address] 12 Apr, 2015 Back pain 724.5 [facility] [address] [id number] [address] [place] [address] 11 Apr, 2015 [facility] [address] [facility] [id number] [address] [place] [address] Feb, [facility] [address] [facility] [id number] [address] [place] [address] Feb, [facility] [address] [id number] [address] [place] [address] Jan, [facility] [address] [facility] [id number] [address] [place] [address] Nov, [facility] [address] [facility] [id number] [address] [place] [address] Nov, [facility] [address] [id number] [address] [place] [address] Nov, [facility] [address] [id number] [address] [place] [address] Nov, [facility] [address] [facility] [id number] [address] [place] [address] Oct, [facility] [address] [facility] [id number] [address] [place] [address] Oct, [facility] [address] [facility] [id number] [address] [place] [address] Aug, [facility] [address] [id number] [address] [place] [address], [place] [address] Aug, [facility] [address] [id number] [address] [place] [address], [place] [address] Aug, [facility] [address] [id number] [address] [place] [address], [place] [address] Aug, [facility] [address] [id number] [address] [place] [address], [place] [address] Aug, [facility] [address] [id number] [address] [place] [address], [place] [address] Aug, [facility] [address] [id number] [address] [place] [address], [place] [address] Aug, [facility] [address] [id number] [address] [place] [address], [place] [address] Aug, [facility] [address] [id number] [address] [place] [address], [place] [address] Jun, [facility] [address] [id number] [address] [place] [address], [place] [address] Jun, [facility] [address] [id number] [address] [place] [address], [place] [address] Jun, [facility] [address] [id number] [address] [place] [address], [place] [address] Jun, [facility] [address] [id number] [address] [place] [address], [place] [address] Jun, [facility] [address] [id number] [address] [place] [address], [place] [address] Jun, [facility] [address] [id number] [address] [place] [address], [place] [address] Jun, [facility] [address] [id number] [address] [place] [address], [place] [address] Jun, [facility] [address] [id number] [address] [place] [address], [place] [address] Jun, [facility] [address] [id number] [address] [place] [address], [place] [address] Jun, [facility] [address] [id number] [address] [place] [address], [place] [address] May, [facility] [address] [id number] [address] [place] [address], [place] [address] May, [facility] [address] [id number] [address] [place] [address], [place] [address] March, [facility] [address] [id number] [address] [place] [address], [place] [address] March, [facility] [address] [id number] [address] [place] [address], [place] [address] March, [facility] [address] [id number] [address] [place] [address], [place] [address] March, [facility] [address] [id number] [address] [place] [address], [place] [address] Feb, [facility] [address] [id number] [address] [place] [address], [place] [address] Feb, [facility] [address] [id number] [address] [place] [address], [place] [address] Jan, [facility] [address] [id number] [address] [place] [address], [place] [address] Jan, [facility] [address] [id number] [address] [place] [address], [place] [address] Jan, [facility] [address] [id number] [address] [place] [address], [place] [address] Jan, [facility] [address] [id number] [address] [place] [address], [place] [address] Dec, [facility] [address] [id number] [address] [place] [address], [place] [address] Dec, [facility] [address] [id number] [facility] [place] [facility] [place] [address] 14 Dec, 2013 [facility] [address] [id number] [address] [place] [address], [place] [address] 14 Dec, 2013 [facility] [address] [id number] [address] [place] [address], [place] [address] 11 Dec, 2013 [facility] [address] [id number] [address] [place] [address], [place] [address] Dec, [facility] [address] [id number] [address] [place] [address], [place] [address] Nov, [facility] [address] [id number] [address] [place] [address], [place] [address] Nov, [facility] [address] [id number] [address] [place] [address], [place] [address] Nov, [facility] [address] [id number] [address] [place] [address], [place] [address] Nov, [facility] [address] [id number] [address] [place] [address], [place] [address] Nov, [facility] [address] [id number] [address] [place] [address], [place] [address] Nov, [facility] [address] [id number] [address] [place] [address], [place] [address] Nov, [facility] [address] [id number] [address] [place] [address], [place] [address] Nov, [facility] [address] [id number] [address] [place] [address], [place] [address] Nov, [facility] [address] [id number] [address] [place] [address], [place] [address] Nov, [facility] [address] [id number] [address] [place] [address], [place] [address] Nov, [facility] [address] [id number] [address] [place] [address], [place] [address] Nov, [facility] [address] [id number] [address] [place] [address], [place] [address] Oct, [facility] [address] [id number] [address] [place] [address], [place] [address] Oct, [facility] [address] [id number] [address] [place] [address], [place] [address] Oct, [facility] [address] [id number] [address] [place] [address], [place] [address] Oct, [facility] [address] [id number] [address] [place] [address], [place] [address] Sep, [facility] [address] [id number] [address] [place] [address], [place] [address] Sep, [facility] [address] [id number] [address] [place] [address], [place] [address] Sep, [facility] [address] [id number] [address] [place] [address], [place] [address] Sep, [facility] [address] [id number] [address] [place] [address], [place] [address] Sep, [facility] [address] [id number] [address] [place] [address], [place] [address] Sep, [facility] [address] [id number] [address] [place] [address], [place] [address] Sep, [facility] [address] [id number] [address] [place] [address], [place] [address] Sep, [facility] [address] [id number] [address] [place] [address], [place] [address] 30 Jul, 2013 [facility] [address] [id number] [address] [place] [address], [place] [address] 26 Jul, 2013 [facility] [address] [id number] [address] [place] [address], [place] [address] May, [facility] [address] [id number] [address] [place] [address], [place] [address] 26 Apr, 2013 [facility] [address] [id number] [address] [place] [address], [place] [address] 24 Apr, 2013 [facility] [address] [id number] [address] [place] [address], [place] [address] 20 Apr, 2013 [facility] [address] [id number] [address] [place] [address], [place] [address] Apr, [facility] [address] [id number] [address] [place] [address], [place] [address] 13 Apr, 2013 [facility] [address] [id number] [address] [place] [address], [place] [address] Apr, [facility] [address] [id number] [address] [place] [address], [place] [address] Apr, [facility] [address] [id number] [address] [place] [address], [place] [address] March, [facility] [address] [id number] [address] [place] [address], [place] [address] March, [facility] [address] [id number] [address] [place] [address], [place] [address] Jan, [facility] [address] [id number] [address] [place] [address], [place] [address] Dec, [facility] [address] [id number] [address] [place] [address], [place] [address] Nov, [facility] [address] [id number] [address] [place] [address], [place] [address] Nov, [facility] [address] [id number] [address] [place] [address], [place] [address] Oct, [facility] [address] [id number] [address] [place] [address], [place] [address] Oct, [facility] [address] [id number] [address] [place] [address], [place] [address] Oct, [facility] [address] [id number] [address] [place] [address], [place] [address] Oct, [facility] [address] [id number] [address] [place] [address], [place] [address] Oct, [facility] [address] [id number] [address] [place] [address], [place] [address] Oct, [facility] [address] [id number] [address] [place] [address], [place] [address] Sep, [facility] [address] [id number] [address] [place] [address], [place] [address] Sep, [facility] [address] [id number] [address] [place] [address], [place] [address] Sep, [facility] [address] [id number] [address] [place] [address], [place] [address] Sep, [facility] [address] [id number] [address] [place] [address], [place] [address] Sep, [facility] [address] [id number] [address] [place] [address], [place] [address] Sep, [facility] [address] [id number] [address] [place] [address], [place] [address] Sep, [facility] [address] [id number] [address] [place] [address], [place] [address] Sep, [facility] [address] [id number] [address] [place] [address], [place] [address] Sep, [facility] [address] [id number] [address] [place] [address], [place] [address] Sep, [facility] [address] [id number] [address] [place] [address], [place] [address] Sep, [facility] [address] [id number] [address] [place] [address], [place] [address] Sep, [facility] [address] [id number] [address] [place] [address] [place] [address] Aug, [facility] [address] [id number] [address] [place] [address], [place] [address] Aug, [facility] [address] [id number] [address] [place] [address], [place] [address] Aug, [facility] [address] [id number] [address] [place] [address], [place] [address] Aug, [facility] [address] [id number] [address] [place] [address], [place] [address] Aug, [facility] [address] [id number] [address] [place] [address], [place] [address] Aug, [facility] [address] [id number] [address] [place] [address], [place] [address] Aug, [facility] [address] [id number] [address] [place] [address], [place] [address] Aug, [facility] [address] [id number] [address] [place] [address], [place] [address] Aug, [facility] [address] [id number] [address] [place] [address], [place] [address] Aug, [facility] [address] [id number] [address] [place] [address], [place] [address] Jul, [facility] [address] [id number] [address] [place] [address], [place] [address] Jul, [facility] [address] [id number] [address] [place] [address], [place] [address] Jun, [facility] [address] [id number] [address] [place] [address], [place] [address] Jun, [facility] [address] [id number] [address] [place] [address], [place] [address] Jun, [facility] [address] [id number] [address] [place] [address], [place] [address] May, [facility] [address] [id number] [address] [place] [address], [place] [address] May, [facility] [address] [id number] [address] [place] [address], [place] [address] May, [facility] [address] [id number] [address] [place] [address], [place] [address] May, [facility] [address] [id number] [address] [place] [address], [place] [address] Apr, [facility] [address] [id number] [address] [place] [address], [place] [address] Apr, [facility] [address] [id number] [address] [place] [address], [place] [address] Apr, [facility] [address] [id number] [address] [place] [address], [place] [address] Apr, [facility] [address] [id number] [address] [place] [address], [place] [address] March, [facility] [address] [id number] [address] [place] [address], [place] [address] Jan, [facility] [address] [id number] [address] [place] [address], [place] [address] Dec, [facility] [address] [id number] [address] [place] [address], [place] [address] Dec, [facility] [address] [id number] [address] [place] [address], [place] [address] Oct, [facility] [address] [id number] [address] [place] [address], [place] [address] Oct, [facility] [address] [id number] [address] [place] [address], [place] [address] Oct, [facility] [address] [id number] [address] [place] [address], [place] [address] Oct, [facility] [address] [id number] [address] [address] Oct, [facility] [address] [id number] [address] [place] [id number] 15 Oct, 2011 [facility] [address] [id number] [address] [place] [address] Oct, [facility] [address] [id number] [address] [place] [address] Oct, [facility] [address] [id number] [address] [place] [address] Sep, [facility] [address] [id number] [address] [place] [address] Sep, [facility] [address] [id number] [address] [place] [address] Sep, [facility] [address] [id number] [address] [place] [address] Sep, [facility] [address] [id number] [address] [place] [address] Aug, [facility] [address] [id number] [address] [place] [address] Jul, IMMUNIZATIONS No Known Immunizations SOCIAL HISTORY Never Assessed REASON FOR VISIT walkin f/u multiple times with strep, PT states it has moved down to his lungs-S sheldon [employer] PLAN OF CARE VITAL SIGNS Height 74 in 2018-03-25 Weight 292.7 lbs 2018-03-25 Temperature 98.1 degrees Fahrenheit 2018-03-25 Heart Rate 84 bpm 2018-03-25 Respiratory Rate 20 2018-03-25 Oximetry on room air:99 % 2018-03-25 BMI 37.58 kg/m2 2018-03-25 Blood pressure systolic 122 mmHg 2018-03-25 Blood pressure diastolic 90 mmHg 2018-03-25 MEDICATIONS Medication Instructions Dosage Frequency Start Date End Date Duration S robert Fexofenadine HCl 180 MG Orally Once a day 1 tablet as needed 24h Feb, Aug, 30 day(s) Active Propranolol HCl 20 mg Orally Twice a day 1 tablet 12h March, 30 day(s) Active PredniSONE 20 mg Orally Once a day 2 tablets 24h March, 8 Mar, 2018 05 days Active Naproxen 500 MG Orally every 12 hrs 1 tablet as needed 12h 06 Aug, 016 Active ProAir HFA 108 (90 Base) MCG/ACT Inhalation every 6 hrs 2 puffs as needed 6h March, Active Flonase 50 MCG/ACT Nasally Once a day 1 spray in each nostril 24h Feb, 30 day(s) Active Pantoprazole Sodium 20 mg Orally Once a day 1 tablet 24h Feb 30 day(s) Active Depakote ER 500 mg Orally 2 times a day 2 tablets 12h Active EPINEPHrine 0.3 MG/0.3ML Injection 1 time as needed 0.3 mg IM Active RESULTS No Results PROCEDURES Procedure Date Ordered Result Body Site X-RAY EXAM CHEST 2 VIEWS March 25, 2018 COMPLETE CBC W/AUTO DIFF WBC March 25, 2018 COMPREHEN METABOLIC PANEL March 25, 2018 VENIPUNCT, ROUTINE* March 25, 2018 ASSAY THYROID STIM HORMONE March 25, 2018 INSTRUCTIONS MEDICATIONS ADMINISTERED No Known Medications MEDICAL (GENERAL) HISTORY Type Description Date Medical History seizures Medical History allergic rhinitis Medical History mood disorder Medical History back pain
--- OUTSIDE RECORDS SUMMARY | 2020-02-03 17:09 | XMS REPORT ---
Author Author Derek KEITH Organization [facility] Address [address] [place] [address] Care Team Providers Care Music Engineer Name Role Phone ARMANI KEITH Unavailable PROBLEMS Type Condition ICD9-CM Code VWK95-FG Code Onset Dates Condition S tatus SNOMED Code Problem Anxiety F41.9 Active [id number] Problem Seasonal allergic rhinitis due to other allergic trigger J30.89 Active 806682228 Problem Bladder spasms N32.89 Active 93521 [id number] ALLERGIES No Information ENCOUNTERS Encounter Location Date Diagnosis [place] [id number] [facility] [id number] [address] [place] [address] March, Elevated liver enzymes R74.8 and Abnormal CBC R79.89 [facility] [address] [facility] [id number] [address] [place] [address] March, Encounter for immunization Z 23 [facility] [address] [facility] [id number] [address] [place] [address] March, [facility] [address] [facility] [id number] [address] [place] [address] March, [facility] [address] [facility] [id number] [address] [place] [address] March, Elevated liver enzymes R74.8 and Abnormal CBC R79.89 [facility] [address] [facility] [id number] [address] [place] [address] March, Anxiety F41.9 ; Bronchitis J 40 and Seasonal allergic rhinitis due to other allergic trigger J30.89 [facility] [address] [facility] [id number] [address] [place] [address] March, [facility] [address] [facility] [id number] [address] [place] [address] Feb, [place] [address] [address] Feb, Pharyngitis due to other org anism J02.8 [place] [address] [address] Feb, Pharyngitis due to other org anism J02.8 [facility] [address] [address] Feb, Sore throat J02.9 ; Fatigue, unspecified type R53.83 and Strep pharyngitis J02.0 [facility] [address] [address] Feb, Acute nasopharyngitis J00 [facility] [place] [address] [address] Feb, Lower abdominal pain R10.30 [facility] [place] [address] [address] Feb, Bladder spasms N32.89 and Ur inary frequency R35.0 [facility] [place] [address] [address] Jan, Strep throat J02.0 [facility] [place] [address] [address] Dec, Seasonal allergic rhinitis, unspecified trigger J30.2 [place] [address] [address] Nov, Acute suppurative otitis med ia of both ears without spontaneous rupture of tympanic membranes, recurrence not specified H66.003 [facility] N [address] [address] Nov, Acute suppurative otitis med ia of both ears without spontaneous rupture of tympanic membranes, recurrence not specified H66.003 [facility] [place] [address] [place] [address] Nov, Acute suppurative otitis med ia of both ears without spontaneous rupture of tympanic membranes, recurrence not specified H66.003 [place] [address] [address] Oct, [place] [address] [address] 21 Jul, 2017 Seizures R56.9 [place] [address] [address] 14 Jul, 2017 Seizures R56.9 ; Other chron ic pain G89.29 ; Pain in left ankle and joints of left foot M25.572 and Allergic rhinitis, unspecified allergic rhinitis trigger, unspecified rhinitis seasonality J30.9 [facility] [place] [address] [address] 07 Jul, 2017 Acute seasonal allergic rhin itis due to other allergen J30.89 [facility] [place] [address] [address] Jun, Left foot pain M79.672 and L eft lateral ankle pain M25.572 [place] [address] [address] Aug, Allergic rhinitis, unspecifi ed allergic rhinitis trigger, unspecified rhinitis seasonality J30.9 ; Low back pain M54.5 and Other chronic pain G89.29 [facility] N [address] [address] Jul, [facility] N [address] [address] 12 Jul, 2016 Low back pain M54.5 and Othe r chronic pain G89.29 [facility] [place] [address] [address] 09 Jul, 2016 Acute maxillary sinusitis, r ecurrence not specified J01.00 [facility] [address] [address] Jun, Cellulitis of left lower ext remity L03.116 [facility] [place] [address] [address] Apr, Wrist pain, left M25.532 [facility] [place] [address] [address] March, Low back pain M54.5 ; Fever, unspecified R50.9 and Strep pharyngitis J02.0 [facility] [place] [address] [address] March, Hordeolum externum of left u pper eyelid H00.014 and Acute follicular conjunctivitis of left eye H10.012 [place] [address] [address] Jan, Folliculitis L73.9 [facility] [place] [address] [address] Jan, Screen for sexually transmit yayo diseases Z11.3 [place] [address] [address] Nov, [place] [address] [address] Nov, Gen idiopathic epilepsy, not intractable, 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 [facility] [place] [address] [address] Nov, Malaise R53.81 ; Upper respi ratory infection J06.9 and Pharyngitis J02.9 [facility] [place] [address] [address] Nov, Acute pharyngitis, unspecifi ed J02.9 ; Acute upper respiratory infection, unspecified J06.9 ; Other viral agents as the cause of diseases classified elsewhere B97.89 and Allergic rhinitis J30.9 [facility] [address] [id number] [address] [place] [address] 04 Oct, 2015 Testicular pain N50.8 [facility] [address] [id number] [address] [place] [address] 15 Jul, 2015 Sinusitis 473.9 [facility] [address] [id number] [address] [place] [address] 12 Apr, 2015 Back pain 724.5 [facility] [address] [id number] [address] [place] [address] 11 Apr, 2015 [facility] [address] [id number] [address] [place] [address] Feb, [facility] [address] [id number] [address] [place] [address] Feb, [facility] [address] [id number] [address] [place] [address] Jan, [facility] [address] [id number] [address] [place] [address] Nov, [facility] [address] [id number] [address] [place] [address] Nov, [facility] [address] [id number] [address] [place] [address] Nov, [facility] [address] [id number] [address] [place] [address] Nov, [facility] [address] [id number] [address] [place] [address] Oct, [facility] [address] [id number] [address] [place] [address] Oct, [facility] [address] [id number] [address] [place] [address] Aug, [facility] [address] [id number] [address] [place] [address] Aug, [facility] [address] [id number] [facility] [place] [address] Aug, [facility] [address] [id number] [facility] [place] [address] Aug, [facility] [address] [id number] [facility] [place] [address] Aug, [facility] [address] [id number] [address] [place] [address], [place] [address] Aug, [facility] [address] [id number] [address] [place] [address], [place] [address] Aug, [facility] [address] [id number] [address] [place] [address], [place] [address] Aug, [facility] [address] [id number] [address] [place] [address], [place] [address] Jun, [facility] [address] [id number] [address] [place] [address], [place] [address] Jun, [facility] [address] [id number] [address] [place] [address], [place] [address] Jun, [facility] [address] [id number] [address] [place] [address], [place] [address] Jun, [facility] [address] [id number] [address] [place] [address], [place] [address] Jun, [facility] [address] [id number] [address] [place] [address], [place] [address] Jun, [facility] [address] [id number] [address] [place] [address], [place] [address] Jun, [facility] [address] [id number] [address] [place] [address], [place] [address] Jun, [facility] [address] [id number] [address] [place] [address], [place] [address] Jun, [facility] [address] [id number] [address] [place] [address], [place] [address] Jun, [facility] [address] [id number] [address] [place] [address], [place] [address] May, [facility] [address] [id number] [address] [place] [address], [place] [address] May, [facility] [address] [id number] [address] [place] [address], [place] [address] March, [facility] [address] [id number] [address] [place] [address], [place] [address] March, [facility] [address] [id number] [address] [place] [address], [place] [address] March, [facility] [address] [id number] [address] [place] [address], [place] [address] March, [facility] [address] [id number] [address] [place] [address], [place] [address] Feb, [facility] [address] [id number] [address] [place] [address], [place] [address] Feb, [facility] [address] [id number] [address] [place] [address], [place] [address] Jan, [facility] [address] [id number] [address] [place] [address], [place] [address] Jan, [facility] [address] [id number] [address] [place] [address], [place] [address] Jan, [facility] [address] [id number] [address] [place] [address], [place] [address] Jan, [facility] [address] [id number] [address] [place] [address], [place] [address] Dec, [facility] [address] [id number] [address] [place] [address], [place] [address] Dec, [facility] [address] [id number] [address] [place] [address], [place] [address] Dec, [facility] [address] [id number] [address] [place] [address], [place] [address] 14 Dec, 2013 [facility] [address] [id number] [address] [place] [address], [place] [address] 11 Dec, 2013 [facility] [address] [id number] [address] [place] [address], [place] [address] 11 Dec, 2013 [facility] [address] [id number] [address] [place] [address], [place] [address] Nov, [facility] [address] [id number] [address] [place] [address], [place] [address] Nov, [facility] [address] [id number] [address] [place] [address], [place] [address] Nov, [facility] [address] [id number] [address] [place] [address], [place] [address] Nov, [facility] [address] [id number] [address] [place] [address], [place] [address] Nov, [facility] [address] [id number] [address] [place] [address], [place] [address] Nov, [facility] [address] [id number] [address] [place] [address], [place] [address] Nov, [facility] [address] [id number] [address] [place] [address], [place] [address] Nov, [facility] [address] [id number] [address] [place] [address], [place] [address] Nov, [facility] [address] [id number] [address] [place] [address], [place] [address] Nov, [facility] [address] [id number] [address] [place] [address], [place] [address] Nov, [facility] [address] [id number] [address] [place] [address], [place] [address] Nov, [facility] [address] [id number] [address] [place] [address], [place] [address] Oct, [facility] [address] [id number] [address] [place] [address], [place] [address] Oct, [facility] [address] [id number] [address] [place] [address], [place] [address] Oct, [facility] [address] [id number] [address] [place] [address], [place] [address] Oct, [facility] [address] [id number] [address] [place] [address], [place] [address] Sep, [facility] [address] [id number] [address] [place] [address], [place] [address] Sep, [facility] [address] [id number] [address] [place] [address], [place] [address] Sep, [facility] [address] [id number] [address] [place] [address], [place] [address] Sep, [facility] [address] [id number] [address] [place] [address], [place] [address] Sep, [facility] [address] [id number] [address] [place] [address], [place] [address] Sep, [facility] [address] [id number] [address] [place] [address], [place] [address] Sep, [facility] [address] [id number] [address] [place] [address], [place] [address] Sep, [facility] [address] [id number] [address] [place] [address], [place] [address] 30 Jul, 2013 [facility] [address] [id number] [address] [place] [address], [place] [address] Jul, [facility] [address] [id number] [address] [place] [address], [place] [address] May, [facility] [address] [id number] [address] [place] [address], [place] [address] Apr, [facility] [address] [id number] [address] [place] [address] [place] [address] 24 Apr, 2013 [facility] [address] [id number] [address] [place] [address], [place] [address] 20 Apr, 2013 [facility] [address] [id number] [address] [place] [address], [place] [address] Apr, [facility] [address] [id number] [address] [place] [address], [place] [address] Apr, [facility] [address] [id number] [address] [place] [address], [place] [address] 10 Apr, 2013 [facility] [address] [id number] [address] [place] [address], [place] [address] Apr, [facility] [address] [id number] [address] [place] [address], [place] [address] March, [facility] [address] [id number] [address] [place] [address], [place] [address] March, [facility] [address] [id number] [address] [place] [address], [place] [address] Jan, [facility] [address] [id number] [address] [place] [address], [place] [address] Dec, [facility] [address] [id number] [address] [place] [address], [place] [address] Nov, [facility] [address] [id number] [address] [place] [address], [place] [address] Nov, [facility] [address] [id number] [address] [place] [address], [place] [address] Oct, [facility] [address] [id number] [address] [place] [address], [place] [address] Oct, [facility] [address] [id number] [address] [place] [address], [place] [address] Oct, [facility] [address] [id number] [address] [place] [address], [place] [address] Oct, [facility] [address] [id number] [address] [place] [address], [place] [address] Oct, [facility] [address] [id number] [address] [place] [address], [place] [address] Oct, [facility] [address] [id number] [address] [place] [address], [place] [address] Sep, [facility] [address] [id number] [address] [place] [address], [place] [address] Sep, [facility] [address] [id number] [address] [place] [address], [place] [address] Sep, [facility] [address] [id number] [address] [place] [address], [place] [address] Sep, [facility] [address] [id number] [address] [place] [address], [place] [address] Sep, [facility] [address] [id number] [address] [place] [address], [place] [address] Sep, [facility] [address] [id number] [address] [place] [address], [place] [address] Sep, [facility] [address] [id number] [address] [place] [address], [place] [address] Sep, [facility] [address] [id number] [address] [place] [address], [place] [address] Sep, [facility] [address] [id number] [address] [place] [address], [place] [address] Sep, [facility] [address] [id number] [address] [place] [address], [place] [address] Sep, [facility] [address] [id number] [address] [place] [address], [place] [address] Sep, [facility] [address] [id number] [address] [place] [address], [place] [address] Aug, [facility] [address] [id number] [address] [place] [address], [place] [address] Aug, [facility] [address] [id number] [address] [place] [address], [place] [address] Aug, [facility] [address] [id number] [address] [place] [address], [place] [address] Aug, [facility] [address] [id number] [address] [place] [address], [place] [address] Aug, [facility] [address] [id number] [address] [place] [address], [place] [address] Aug, [facility] [address] [id number] [address] [place] [address], [place] [address] Aug, [facility] [address] [id number] [address] [place] [address], [place] [address] Aug, [facility] [address] [id number] [address] [place] [address], [place] [address] Aug, [facility] [address] [id number] [address] [place] [address], [place] [address] Aug, [facility] [address] [id number] [address] [place] [address], [place] [address] Jul, [facility] [address] [id number] [address] [place] [address], [place] [address] Jul, [facility] [address] [id number] [address] [place] [address], [place] [address] Jun, [facility] [address] [id number] [address] [place] [address], [place] [address] Jun, [facility] [address] [id number] [address] [place] [address], [place] [address] Jun, [facility] [address] [id number] [address] [place] [address], [place] [address] May, [facility] [address] [id number] [address] [place] [address], [place] [address] May, [facility] [address] [id number] [address] [place] [address], [place] [address] May, [facility] [address] [id number] [address] [place] [address], [place] [address] May, [facility] [address] [id number] [address] [place] [address], [place] [address] Apr, [facility] [address] [id number] [address] [place] [address], [place] [address] Apr, [facility] [address] [id number] [address] [place] [address], [place] [address] Apr, [facility] [address] [id number] [address] [place] [address], [place] [address] Apr, [facility] [address] [id number] [address] [place] [address], [place] [address] March, [facility] [address] [id number] [address] [place] [address], [place] [address] Jan, [facility] [address] [id number] [address] [place] [address], [place] [address] Dec, [facility] [address] [id number] [address] [place] [address], [place] [address] Dec, [facility] [address] [id number] [address] [place] [address], [place] [address] Oct, [facility] [address] [id number] [address] [place] [address], [place] [address] Oct, [facility] [address] [id number] [address] [place] [address], [place] [address] Oct, [facility] [address] [id number] [address] [place] [address], [place] [address] Oct, [facility] [address] [id number] [address] [place] [address], [place] [address] 15 Oct, 2011 [facility] [address] [id number] [address] [place] [address], [place] [address] Oct, [facility] [address] [id number] [address] [place] [id number] Oct, [facility] [address] [id number] [address] [place] [phone] Oct, [facility] [address] [id number] [address] [place] [phone] Sep, [facility] [address] [id number] [address] [place] [phone] Sep, [facility] [address] [id number] [address] [place] [phone] Sep, [facility] [address] [id number] [address] [place] [phone] Sep, [facility] [address] [facility] [id number] [address] [place] [phone] Aug, [facility] [address] [id number] [address] [place] [phone] Jul, IMMUNIZATIONS No Known Immunizations SOCIAL HISTORY Never Assessed REASON FOR VISIT Refill request PLAN OF CARE VITAL SIGNS MEDICATIONS Medication Instructions Dosage Frequency Start Date End Date Duration S tatus ProAir HFA 108 (90 Base) MCG/ACT Inhalation every 6 hrs 2 puffs as needed 6h March, Active RESULTS No Results PROCEDURES No Known procedures INSTRUCTIONS MEDICATIONS ADMINISTERED No Known Medications MEDICAL (GENERAL) HISTORY Type Description Date Medical History seizures Medical History allergic rhinitis Medical History mood disorder Medical History back pain
--- OUTSIDE RECORDS SUMMARY | 2020-02-03 17:10 | XMS REPORT ---
Author Author Derek KEITH Organization [facility] Address [address] [place] [address] Care Team Providers Care Fisher [employer] Name Role Phone ARMANI KEITH Unavailable PROBLEMS Type Condition ICD9-CM Code [id number] Code Onset Dates Condition S tatus SNOMED Code Problem Anxiety F41.9 Active 51493896 Problem Seasonal allergic rhinitis due to other allergic trigger J30.89 Active 896425270 Problem Bladder spasms N32.89 Active 08011 7006 ALLERGIES Substance Reaction Event Type Date Status Sulfamethoxazole-TMP DS other Drug Allergy Feb, Acti ve Cephalexin rash Drug Allergy Feb, Active Amoxicillin Unknown Drug Allergy Feb, Active ENCOUNTERS Encounter Location Date Diagnosis [place] [address] [address] [place] [id number] [place] [address] March, Elevated liver enzymes R74.8 and Abnormal CBC R79.89 [place] [address] [address] March, Encounter for immunization Z 23 [place] [address] [place] [id number] [place] [address] March, [place] [address] [place] [id number] [place] [address] March, [place] [address] [place] [id number] [place] [address] March, Elevated liver enzymes R74.8 and Abnormal CBC R79.89 [place] [address] [place] [id number] [place] [address] March, Anxiety F41.9 ; Bronchitis J 40 and Seasonal allergic rhinitis due to other allergic trigger J30.89 [place] [address] [place] [id number] [place] [address] March, [facility] [address] [place] [id number] [address] [place] [address] Feb, [facility] [address] [facility] [id number] [address] [place] [address] Feb, Pharyngitis due to other org anism J02.8 [place] [address] [place] [id number] [address] [place] [address] Feb, Pharyngitis due to other org anism J02.8 [facility] [place] [id number] [address] [place] [address] Feb, Sore throat J02.9 ; Fatigue, unspecified type R53.83 and Strep pharyngitis J02.0 [facility] [address] [address] Feb, Acute nasopharyngitis J00 [facility] N [address] [address] Feb, Lower abdominal pain R10.30 [facility] [address] [address] Feb, Bladder spasms N32.89 and Ur inary frequency R35.0 [facility] [place] [id number] [place] [address] Jan, Strep throat J02.0 [facility] [address] [address] Dec, Seasonal allergic rhinitis, unspecified trigger J30.2 [place] [address] [place] [id number] [place] [address] Nov, Acute suppurative otitis med ia of both ears without spontaneous rupture of tympanic membranes, recurrence not specified H66.003 [facility] [place] [id number] [address] [place] [address] Nov, Acute suppurative otitis med ia of both ears without spontaneous rupture of tympanic membranes, recurrence not specified H66.003 [facility] W[facility] IN [place] [address] [address] Nov, Acute suppurative otitis med ia of both ears without spontaneous rupture of tympanic membranes, recurrence not specified H66.003 [place] [address] [address] Oct, [place] [address] [address] 21 Jul, 2017 Seizures R56.9 [place] [address] [address] 14 Jul, 2017 Seizures R56.9 ; Other chron ic pain G89.29 ; Pain in left ankle and joints of left foot M25.572 and Allergic rhinitis, unspecified allergic rhinitis trigger, unspecified rhinitis seasonality J30.9 [facility] [place] [address] [address] 07 Jul, 2017 Acute seasonal allergic rhin itis due to other allergen J30.89 [facility] WALK IN [address] [address] Jun, Left foot pain M79.672 and L eft lateral ankle pain M25.572 [place] [address] [address] Aug, Allergic rhinitis, unspecifi ed allergic rhinitis trigger, unspecified rhinitis seasonality J30.9 ; Low back pain M54.5 and Other chronic pain G89.29 [facility] N [address] [address] Jul, [facility] [address] [address] 12 Jul, 2016 Low back pain M54.5 and Othe r chronic pain G89.29 [facility] [place] [address] [address] Jul, Acute maxillary sinusitis, r ecurrence not specified J01.00 [facility] [place] [address] [address] Jun, Cellulitis of left lower ext remity L03.116 [facility] WALK IN [place] [address] [address] Apr, Wrist pain, left M25.532 [facility] WALK IN [place] [address] [address] March, Low back pain M54.5 ; Fever, unspecified R50.9 and Strep pharyngitis J02.0 [facility] WALK IN [place] [address] [address] March, Hordeolum externum of left u pper eyelid H00.014 and Acute follicular conjunctivitis of left eye H10.012 [place] [address] [address] Jan, Folliculitis L73.9 [facility] WALK IN [place] [address] [address] Jan, Screen for sexually transmit yayo diseases Z11.3 [place] [address] [address] Nov, [place] [address] [address] Nov, Gen idiopathic epilepsy, not intractable, 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 [facility] WALK IN [place] [address] [address] Nov, Malaise R53.81 ; Upper respi ratory infection J06.9 and Pharyngitis J02.9 [facility] WALK IN [place] [address] [address] Nov, Acute pharyngitis, unspecifi ed J02.9 ; Acute upper respiratory infection, unspecified J06.9 ; Other viral agents as the cause of diseases classified elsewhere B97.89 and Allergic rhinitis J30.9 [facility] [address] [id number] [address] [place] [address] Oct, Testicular pain N50.8 [facility] [address] [facility] [id number] [address] [place] [address] 15 Jul, 2015 Sinusitis 473.9 [facility] [address] [facility] [id number] [address] [place] [address] 12 Apr, 2015 Back pain 724.5 [facility] [address] [id number] [address] [place] [address] 11 Apr, 2015 [facility] [address] [facility] [id number] [address] [place] [address] Feb, [facility] [address] [facility] [id number] [address] [place] [address] Feb, [facility] [address] [id number] [address] [place] [address] Jan, [facility] [address] [facility] [id number] [address] [place] [address] Nov, [facility] [address] [facility] [id number] [address] [place] [address] Nov, [facility] [address] [id number] [address] [place] [address] Nov, [facility] [address] [id number] [address] [place] [address] Nov, [facility] [address] [facility] [id number] [address] [place] [address] Oct, [facility] [address] [facility] [id number] [address] [place] [address] Oct, [facility] [address] [facility] [id number] [address] [place] [address] Aug, [facility] [address] [id number] [address] [place] [address], [place] [address] Aug, [facility] [address] [id number] [address] [place] [address], [place] [address] Aug, [facility] [address] [id number] [address] [place] [address], [place] [address] Aug, [facility] [address] [id number] [address] [place] [address], [place] [address] Aug, [facility] [address] [id number] [address] [place] [address], [place] [address] Aug, [facility] [address] [id number] [address] [place] [address], [place] [address] Aug, [facility] [address] [id number] [address] [place] [address], [place] [address] Aug, [facility] [address] [id number] [address] [place] [address], [place] [address] Jun, [facility] [address] [id number] [address] [place] [address], [place] [address] Jun, [facility] [address] [id number] [address] [place] [address], [place] [address] Jun, [facility] [address] [id number] [address] [place] [address], [place] [address] Jun, [facility] [address] [id number] [address] [place] [address], [place] [address] Jun, [facility] [address] [id number] [address] [place] [address], [place] [address] Jun, [facility] [address] [id number] [address] [place] [address], [place] [address] Jun, [facility] [address] [id number] [address] [place] [address], [place] [address] Jun, [facility] [address] [id number] [address] [place] [address], [place] [address] Jun, [facility] [address] [id number] [address] [place] [address], [place] [address] Jun, [facility] [address] [id number] [address] [place] [address], [place] [address] May, [facility] [address] [id number] [address] [place] [address], [place] [address] May, [facility] [address] [id number] [address] [place] [address], [place] [address] March, [facility] [address] [id number] [address] [place] [address], [place] [address] March, [facility] [address] [id number] [address] [place] [address], [place] [address] March, [facility] [address] [id number] [address] [place] [address], [place] [address] March, [facility] [address] [id number] [address] [place] [address], [place] [address] Feb, [facility] [address] [id number] [address] [place] [address], [place] [address] Feb, [facility] [address] [id number] [address] [place] [address], [place] [address] Jan, [facility] [address] [id number] [address] [place] [address], [place] [address] Jan, [facility] [address] [id number] [address] [place] [address], [place] [address] Jan, [facility] [address] [id number] [address] [place] [address], [place] [address] Jan, [facility] [address] [id number] [address] [place] [address], [place] [address] Dec, [facility] [address] [id number] [address] [place] [address], [place] [address] Dec, [facility] [address] [id number] [facility] [place] [address] 14 Dec, 2013 [facility] [address] [id number] [address] [place] [address], [place] [address] 14 Dec, 2013 [facility] [address] [id number] [address] [place] [address], [place] [address] 11 Dec, 2013 [facility] [address] [id number] [address] [place] [address], [place] [address] Dec, [facility] [address] [id number] [address] [place] [address], [place] [address] Nov, [facility] [address] [id number] [address] [place] [address], [place] [address] Nov, [facility] [address] [id number] [address] [place] [address], [place] [address] Nov, [facility] [address] [id number] [address] [place] [address], [place] [address] Nov, [facility] [address] [id number] [address] [place] [address], [place] [address] Nov, [facility] [address] [id number] [address] [place] [address], [place] [address] Nov, [facility] [address] [id number] [address] [place] [address], [place] [address] Nov, [facility] [address] [id number] [address] [place] [address], [place] [address] Nov, [facility] [address] [id number] [address] [place] [address], [place] [address] Nov, [facility] [address] [id number] [address] [place] [address], [place] [address] Nov, [facility] [address] [id number] [address] [place] [address], [place] [address] Nov, [facility] [address] [id number] [address] [place] [address], [place] [address] Nov, [facility] [address] [id number] [address] [place] [address], [place] [address] Oct, [facility] [address] [id number] [address] [place] [address], [place] [address] Oct, [facility] [address] [id number] [address] [place] [address], [place] [address] Oct, [facility] [address] [id number] [address] [place] [address], [place] [address] Oct, [facility] [address] [id number] [address] [place] [address], [place] [address] Sep, [facility] [address] [id number] [address] [place] [address], [place] [address] Sep, [facility] [address] [id number] [address] [place] [address], [place] [address] Sep, [facility] [address] [id number] [address] [place] [address], [place] [address] Sep, [facility] [address] [id number] [address] [place] [address], [place] [address] Sep, [facility] [address] [id number] [address] [place] [address], [place] [address] Sep, [facility] [address] [id number] [address] [place] [address], [place] [address] Sep, [facility] [address] [id number] [address] [place] [address], [place] [address] Sep, [facility] [address] [id number] [address] [place] [address], [place] [address] 30 Jul, 2013 [facility] [address] [id number] [address] [place] [address], [place] [address] 26 Jul, 2013 [facility] [address] [id number] [address] [place] [address], [place] [address] May, [facility] [address] [id number] [address] [place] [address], [place] [address] 26 Apr, 2013 [facility] [address] [id number] [address] [place] [address], [place] [address] 24 Apr, 2013 [facility] [address] [id number] [address] [place] [address], [place] [address] 20 Apr, 2013 [facility] [address] [id number] [address] [place] [address], [place] [address] Apr, [facility] [address] [id number] [address] [place] [address], [place] [address] 13 Apr, 2013 [facility] [address] [id number] [address] [place] [address], [place] [address] Apr, [facility] [address] [id number] [address] [place] [address], [place] [address] Apr, [facility] [address] [id number] [address] [place] [address], [place] [address] March, [facility] [address] [id number] [address] [place] [address], [place] [address] March, [facility] [address] [id number] [address] [place] [address], [place] [address] Jan, [facility] [address] [id number] [address] [place] [address], [place] [address] Dec, [facility] [address] [id number] [address] [place] [address], [place] [address] Nov, [facility] [address] [id number] [address] [place] [address], [place] [address] Nov, [facility] [address] [id number] [address] [place] [address], [place] [address] Oct, [facility] [address] [id number] [address] [place] [address], [place] [address] Oct, [facility] [address] [id number] [address] [place] [address], [place] [address] Oct, [facility] [address] [id number] [address] [place] [address], [place] [address] Oct, [facility] [address] [id number] [address] [place] [address], [place] [address] Oct, [facility] [address] [id number] [address] [place] [address], [place] [address] Oct, [facility] [address] [id number] [address] [place] [address], [place] [address] Sep, [facility] [address] [id number] [address] [place] [address], [place] [address] Sep, [facility] [address] [id number] [address] [place] [address], [place] [address] Sep, [facility] [address] [id number] [address] [place] [address], [place] [address] Sep, [facility] [address] [id number] [address] [place] [address], [place] [address] Sep, [facility] [address] [id number] [address] [place] [address], [place] [address] Sep, [facility] [address] [id number] [address] [place] [address], [place] [address] Sep, [facility] [address] [id number] [address] [place] [address], [place] [address] Sep, [facility] [address] [id number] [address] [place] [address], [place] [address] Sep, [facility] [address] [id number] [address] [place] [address], [place] [address] Sep, [facility] [address] [id number] [address] [place] [address], [place] [address] Sep, [facility] [address] [id number] [address] [place] [address], [place] [address] Sep, [facility] [address] [id number] [address] [place] [address] [place] [address] Aug, [facility] [address] [id number] [address] [place] [address], [place] [address] Aug, [facility] [address] [id number] [address] [place] [address], [place] [address] Aug, [facility] [address] [id number] [address] [place] [address], [place] [address] Aug, [facility] [address] [id number] [address] [place] [address], [place] [address] Aug, [facility] [address] [id number] [address] [place] [address], [place] [address] Aug, [facility] [address] [id number] [address] [place] [address], [place] [address] Aug, [facility] [address] [id number] [address] [place] [address], [place] [id number] Aug, [facility] [address] [id number] [address] [place] [address], [place] [address] Aug, [facility] [address] [id number] [address] [place] [address], [place] [id number] Aug, [facility] [address] [id number] [address] [place] [address], [place] [id number] Jul, [facility] [address] [id number] [address] [place] [address], [place] [id number] Jul, [facility] [address] [id number] [address] [place] [address], [place] [id number] Jun, [facility] [address] [id number] [address] [place] [address], [place] [id number] Jun, [facility] [address] [id number] [address] [place] [address], [place] [id number] Jun, [facility] [address] [id number] [address] [place] [address], [place] [address] May, [facility] [address] [id number] [address] [place] [address], [place] [id number] May, [facility] [address] [id number] [address] [place] [address], [place] [address] May, [facility] [address] [id number] [address] [place] [address], [place] [address] May, [facility] [address] [id number] [address] [place] [address], [place] [address] Apr, [facility] [address] [id number] [address] [place] [address], [place] [id number] Apr, [facility] [address] [id number] [address] [place] [address], [place] [id number] Apr, [facility] [address] [id number] [address] [place] [address], [place] [id number] Apr, [facility] [address] [id number] [address] [place] [address], [place] [address] March, [facility] [address] [id number] [address] [place] [address], [place] [address] Jan, [facility] [address] [id number] [address] [place] [address], [place] [id number] Dec, [facility] [address] [id number] [address] [place] [address], [place] [id number] Dec, [facility] [address] [id number] [address] [place] [address], [place] [id number] Oct, [facility] [address] [id number] [address] [place] [address], [place] [id number] Oct, [facility] [address] [id number] [address] [place] [address], [place] [id number] Oct, [facility] [address] [id number] [address] [place] [address], [place] [address] Oct, [facility] [address] [id number] [address] [address] 15 Oct, 2011 [facility] [address] [id number] [address] [place] [id number] 15 Oct, 2011 [facility] [address] [id number] [address] [place] [id number] Oct, [facility] [address] [id number] [address] [place] [id number] Oct, [facility] [address] [id number] [address] [place] [id number] Sep, [facility] [address] [id number] [address] [place] [id number] Sep, [facility] [address] [id number] [address] [place] [id number] Sep, [facility] [address] [id number] [address] [place] [id number] Sep, [facility] [address] [id number] [address] [place] [id number] Aug, [facility] [address] [id number] [address] [place] [id number] Jul, IMMUNIZATIONS No Known Immunizations SOCIAL HISTORY Never Assessed REASON FOR VISIT Blood pressure check--[facility] PLAN OF CARE VITAL SIGNS Height 74 in 2018-03-22 Blood pressure systolic 138 mmHg 2018-03-22 Blood pressure diastolic 92 mmHg 2018-03-22 MEDICATIONS Unknown Medications RESULTS No Results PROCEDURES No Known procedures INSTRUCTIONS MEDICATIONS ADMINISTERED No Known Medications MEDICAL (GENERAL) HISTORY Type Description Date Medical History seizures Medical History allergic rhinitis Medical History mood disorder Medical History back pain
--- OUTSIDE RECORDS SUMMARY | 2020-02-03 17:10 | XMS REPORT ---
Author Author Derek KEITH Organization [facility] Address [address] [place] [address] Care Team Providers Care Specialty Therapist Name Role Phone ARMANI KEITH Unavailable PROBLEMS Type Condition ICD9-CM Code ZUJ56-CT Code Onset Dates Condition S tatus SNOMED Code Problem Anxiety F41.9 Active 83907675 Problem Seasonal allergic rhinitis due to other allergic trigger J30.89 Active 285111926 Problem Bladder spasms N32.89 Active 70982 7006 ALLERGIES Substance Reaction Event Type Date Status Sulfamethoxazole-TMP DS other Drug Allergy Feb, Acti ve Cephalexin rash Drug Allergy Feb, Active Amoxicillin Unknown Drug Allergy Feb, Active ENCOUNTERS Encounter Location Date Diagnosis [place] [address] [address] [place] [id number] [place] [address] March, Elevated liver enzymes R74.8 and Abnormal CBC R79.89 [place] [address] [address] March, Encounter for immunization Z 23 [place] [address] [place] [id number] [place] [address] March, [place] [address] [place] [id number] [place] [address] March, [place] [address] [place] [id number] [place] [address] March, Elevated liver enzymes R74.8 and Abnormal CBC R79.89 [place] [address] [place] [id number] [place] [address] March, Anxiety F41.9 ; Bronchitis J 40 and Seasonal allergic rhinitis due to other allergic trigger J30.89 [place] [address] [place] [id number] [place] [address] March, [facility] [address] [place] [id number] [address] [place] [address] Feb, [facility] [address] [facility] [address] [facility] [id number] [address] [place] [address] Feb, Pharyngitis due to other org anism J02.8 [place] [address] [place] [id number] [address] [place] [address] Feb, Pharyngitis due to other org anism J02.8 [facility] [place] [id number] [place] [address] Feb, Sore throat J02.9 ; Fatigue, unspecified type R53.83 and Strep pharyngitis J02.0 [facility] [address] [address] Feb, Acute nasopharyngitis J00 [facility] [address] [address] Feb, Lower abdominal pain R10.30 [facility] [address] [address] Feb, Bladder spasms N32.89 and Ur inary frequency R35.0 [facility] [place] [id number] [place] [address] Jan, Strep throat J02.0 [facility] [address] [address] Dec, Seasonal allergic rhinitis, unspecified trigger J30.2 [place] [address] [place] [id number] [place] [address] Nov, Acute suppurative otitis med ia of both ears without spontaneous rupture of tympanic membranes, recurrence not specified H66.003 [facility] [place] [id number] [address] [place] [address] Nov, Acute suppurative otitis med ia of both ears without spontaneous rupture of tympanic membranes, recurrence not specified H66.003 [facility] [place] [address] [address] Nov, Acute suppurative otitis med ia of both ears without spontaneous rupture of tympanic membranes, recurrence not specified H66.003 [place] [address] [address] Oct, [place] [address] [address] 21 Jul, 2017 Seizures R56.9 [place] [address] [address] 14 Jul, 2017 Seizures R56.9 ; Other chron ic pain G89.29 ; Pain in left ankle and joints of left foot M25.572 and Allergic rhinitis, unspecified allergic rhinitis trigger, unspecified rhinitis seasonality J30.9 [facility] [place] [address] [address] 07 Jul, 2017 Acute seasonal allergic rhin itis due to other allergen J30.89 [facility] W[facility] IN [address] [address] Jun, Left foot pain M79.672 and L eft lateral ankle pain M25.572 [place] [address] [address] Aug, Allergic rhinitis, unspecifi ed allergic rhinitis trigger, unspecified rhinitis seasonality J30.9 ; Low back pain M54.5 and Other chronic pain G89.29 [facility] [address] [address] Jul, [facility] [address] [address] 12 Jul, 2016 Low back pain M54.5 and Othe r chronic pain G89.29 [facility] [place] [address] [address] Jul, Acute maxillary sinusitis, r ecurrence not specified J01.00 [facility] [place] [address] [address] Jun, Cellulitis of left lower ext remity L03.116 [facility] IN [place] [address] [address] Apr, Wrist pain, left M25.532 [facility] [place] [address] [address] March, Low back pain M54.5 ; Fever, unspecified R50.9 and Strep pharyngitis J02.0 [facility] [place] [address] [address] March, Hordeolum externum of left u pper eyelid H00.014 and Acute follicular conjunctivitis of left eye H10.012 [place] [address] [address] Jan, Folliculitis L73.9 [facility] [place] [address] [address] Jan, Screen for sexually transmit yayo diseases Z11.3 [place] [address] [address] Nov, [place] [address] [address] Nov, Gen idiopathic epilepsy, not intractable, 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 [facility] [place] [address] [address] Nov, Malaise R53.81 ; Upper respi ratory infection J06.9 and Pharyngitis J02.9 [facility] [place] [address] [address] Nov, Acute pharyngitis, unspecifi ed J02.9 ; Acute upper respiratory infection, unspecified J06.9 ; Other viral agents as the cause of diseases classified elsewhere B97.89 and Allergic rhinitis J30.9 [facility] [address] [id number] [address] [place] [address] Oct, Testicular pain N50.8 [facility] [address] [facility] [id number] [address] [place] [address] 15 Jul, 2015 Sinusitis 473.9 [facility] [address] [facility] [id number] [address] [place] [address] 12 Apr, 2015 Back pain 724.5 [facility] [address] [id number] [address] [place] [address] 11 Apr, 2015 [facility] [address] [facility] [id number] [address] [place] [address] Feb, [facility] [address] [facility] [id number] [address] [place] [address] Feb, [facility] [address] [id number] [address] [place] [address] Jan, [facility] [address] [facility] [id number] [address] [place] [address] Nov, [facility] [address] [facility] [id number] [address] [place] [address] Nov, [facility] [address] [id number] [address] [place] [address] Nov, [facility] [address] [id number] [address] [place] [address] Nov, [facility] [address] [facility] [id number] [address] [place] [address] Oct, [facility] [address] [facility] [id number] [address] [place] [address] Oct, [facility] [address] [facility] [id number] [address] [place] [address] Aug, [facility] [address] [id number] [address] [place] [address], [place] [address] Aug, [facility] [address] [id number] [address] [place] [address], [place] [address] Aug, [facility] [address] [id number] [address] [place] [address], [place] [address] Aug, [facility] [address] [id number] [address] [place] [address], [place] [address] Aug, [facility] [address] [id number] [address] [place] [address], [place] [address] Aug, [facility] [address] [id number] [address] [place] [address], [place] [address] Aug, [facility] [address] [id number] [address] [place] [address], [place] [address] Aug, [facility] [address] [id number] [address] [place] [address], [place] [address] Jun, [facility] [address] [id number] [address] [place] [address], [place] [address] Jun, [facility] [address] [id number] [address] [place] [address], [place] [address] Jun, [facility] [address] [id number] [address] [place] [address], [place] [address] Jun, [facility] [address] [id number] [address] [place] [address], [place] [address] Jun, [facility] [address] [id number] [address] [place] [address], [place] [address] Jun, [facility] [address] [id number] [address] [place] [address], [place] [address] Jun, [facility] [address] [id number] [address] [place] [address], [place] [address] Jun, [facility] [address] [id number] [address] [place] [address], [place] [address] Jun, [facility] [address] [id number] [address] [place] [address], [place] [address] Jun, [facility] [address] [id number] [address] [place] [address], [place] [address] May, [facility] [address] [id number] [address] [place] [address], [place] [address] May, [facility] [address] [id number] [address] [place] [address], [place] [address] March, [facility] [address] [id number] [address] [place] [address], [place] [address] March, [facility] [address] [id number] [address] [place] [address], [place] [address] March, [facility] [address] [id number] [address] [place] [address], [place] [address] March, [facility] [address] [id number] [address] [place] [address], [place] [address] Feb, [facility] [address] [id number] [address] [place] [address], [place] [address] Feb, [facility] [address] [id number] [address] [place] [address], [place] [address] Jan, [facility] [address] [id number] [address] [place] [address], [place] [address] Jan, [facility] [address] [id number] [address] [place] [address], [place] [address] Jan, [facility] [address] [id number] [address] [place] [address], [place] [address] Jan, [facility] [address] [id number] [address] [place] [address], [place] [address] Dec, [facility] [address] [id number] [address] [place] [address], [place] [address] Dec, [facility] [address] [id number] [facility] [place] [address] 14 Dec, 2013 [facility] [address] [id number] [address] [place] [address], [place] [address] 14 Dec, 2013 [facility] [address] [id number] [address] [place] [address], [place] [address] 11 Dec, 2013 [facility] [address] [id number] [address] [place] [address], [place] [address] Dec, [facility] [address] [id number] [address] [place] [address], [place] [address] Nov, [facility] [address] [id number] [address] [place] [address], [place] [address] Nov, [facility] [address] [id number] [address] [place] [address], [place] [address] Nov, [facility] [address] [id number] [address] [place] [address], [place] [address] Nov, [facility] [address] [id number] [address] [place] [address], [place] [address] Nov, [facility] [address] [id number] [address] [place] [address], [place] [address] Nov, [facility] [address] [id number] [address] [place] [address], [place] [address] Nov, [facility] [address] [id number] [address] [place] [address], [place] [address] Nov, [facility] [address] [id number] [address] [place] [address], [place] [address] Nov, [facility] [address] [id number] [address] [place] [address], [place] [address] Nov, [facility] [address] [id number] [address] [place] [address], [place] [address] Nov, [facility] [address] [id number] [address] [place] [address], [place] [address] Nov, [facility] [address] [id number] [address] [place] [address], [place] [address] Oct, [facility] [address] [id number] [address] [place] [address], [place] [address] Oct, [facility] [address] [id number] [address] [place] [address], [place] [address] Oct, [facility] [address] [id number] [address] [place] [address], [place] [address] Oct, [facility] [address] [id number] [address] [place] [address], [place] [address] Sep, [facility] [address] [id number] [address] [place] [address], [place] [address] Sep, [facility] [address] [id number] [address] [place] [address], [place] [address] Sep, [facility] [address] [id number] [address] [place] [address], [place] [address] Sep, [facility] [address] [id number] [address] [place] [address], [place] [address] Sep, [facility] [address] [id number] [address] [place] [address], [place] [address] Sep, [facility] [address] [id number] [address] [place] [address], [place] [address] Sep, [facility] [address] [id number] [address] [place] [address], [place] [address] Sep, [facility] [address] [id number] [address] [place] [address], [place] [address] 30 Jul, 2013 [facility] [address] [id number] [address] [place] [address], [place] [address] 26 Jul, 2013 [facility] [address] [id number] [address] [place] [address], [place] [address] May, [facility] [address] [id number] [address] [place] [address], [place] [address] 26 Apr, 2013 [facility] [address] [id number] [address] [place] [address], [place] [address] 24 Apr, 2013 [facility] [address] [id number] [address] [place] [address], [place] [address] 20 Apr, 2013 [facility] [address] [id number] [address] [place] [address], [place] [address] Apr, [facility] [address] [id number] [address] [place] [address], [place] [address] 13 Apr, 2013 [facility] [address] [id number] [address] [place] [address], [place] [address] Apr, [facility] [address] [id number] [address] [place] [address], [place] [address] Apr, [facility] [address] [id number] [address] [place] [address], [place] [address] March, [facility] [address] [id number] [address] [place] [address], [place] [address] March, [facility] [address] [id number] [address] [place] [address], [place] [address] Jan, [facility] [address] [id number] [address] [place] [address], [place] [address] Dec, [facility] [address] [id number] [address] [place] [address], [place] [address] Nov, [facility] [address] [id number] [address] [place] [address], [place] [address] Nov, [facility] [address] [id number] [address] [place] [address], [place] [address] Oct, [facility] [address] [id number] [address] [place] [address], [place] [address] Oct, [facility] [address] [id number] [address] [place] [address], [place] [address] Oct, [facility] [address] [id number] [address] [place] [address], [place] [address] Oct, [facility] [address] [id number] [address] [place] [address], [place] [address] Oct, [facility] [address] [id number] [address] [place] [address], [place] [address] Oct, [facility] [address] [id number] [address] [place] [address], [place] [address] Sep, [facility] [address] [id number] [address] [place] [address], [place] [address] Sep, [facility] [address] [id number] [address] [place] [address], [place] [address] Sep, [facility] [address] [id number] [address] [place] [address], [place] [address] Sep, [facility] [address] [id number] [address] [place] [address], [place] [address] Sep, [facility] [address] [id number] [address] [place] [address], [place] [address] Sep, [facility] [address] [id number] [address] [place] [address], [place] [address] Sep, [facility] [address] [id number] [address] [place] [address], [place] [address] Sep, [facility] [address] [id number] [address] [place] [address], [place] [address] Sep, [facility] [address] [id number] [address] [place] [address], [place] [address] Sep, [facility] [address] [id number] [address] [place] [address], [place] [address] Sep, [facility] [address] [id number] [address] [place] [address], [place] [address] Sep, [facility] [address] [id number] [address] [place] [address] [place] [address] Aug, [facility] [address] [id number] [address] [place] [address], [place] [address] Aug, [facility] [address] [id number] [address] [place] [address], [place] [address] Aug, [facility] [address] [id number] [address] [place] [address], [place] [address] Aug, [facility] [address] [id number] [address] [place] [address], [place] [address] Aug, [facility] [address] [id number] [address] [place] [address], [place] [address] Aug, [facility] [address] [id number] [address] [place] [address], [place] [address] Aug, [facility] [address] [id number] [address] [place] [address], [place] [address] Aug, [facility] [address] [id number] [address] [place] [address], [place] [address] Aug, [facility] [address] [id number] [address] [place] [address], [place] [address] Aug, [facility] [address] [id number] [address] [place] [address], [place] [address] Jul, [facility] [address] [id number] [address] [place] [address], [place] [address] Jul, [facility] [address] [id number] [address] [place] [address], [place] [address] Jun, [facility] [address] [id number] [address] [place] [address], [place] [address] Jun, [facility] [address] [id number] [address] [place] [address], [place] [address] Jun, [facility] [address] [id number] [address] [place] [address], [place] [address] May, [facility] [address] [id number] [address] [place] [address], [place] [address] May, [facility] [address] [id number] [address] [place] [address], [place] [address] May, [facility] [address] [id number] [address] [place] [address], [place] [address] May, [facility] [address] [id number] [address] [place] [address], [place] [address] Apr, [facility] [address] [id number] [address] [place] [address], [place] [address] Apr, [facility] [address] [id number] [address] [place] [address], [place] [address] Apr, [facility] [address] [id number] [address] [place] [address], [place] [address] Apr, [facility] [address] [id number] [address] [place] [address], [place] [address] March, [facility] [address] [id number] [address] [place] [address], [place] [address] Jan, [facility] [address] [id number] [address] [place] [address], [place] [address] Dec, [facility] [address] [id number] [address] [place] [address], [place] [address] Dec, [facility] [address] [id number] [address] [place] [address], [place] [address] Oct, [facility] [address] [id number] [address] [place] [address], [place] [address] Oct, [facility] [address] [id number] [address] [place] [address], [place] [address] Oct, [facility] [address] [id number] [address] [place] [address], [place] [address] Oct, [facility] [address] [id number] [address] [address] Oct, [facility] [address] [id number] [address] [place] [id number] 15 Oct, 2011 [facility] [address] [id number] [address] [place] [address] Oct, [facility] [address] [id number] [address] [place] [address] Oct, [facility] [address] [id number] [address] [place] [address] Sep, [facility] [address] [id number] [address] [place] [address] Sep, [facility] [address] [id number] [address] [place] [address] Sep, [facility] [address] [id number] [address] [place] [address] Sep, [facility] [address] [id number] [address] [place] [address] Aug, [facility] [address] [id number] [address] [place] [address] Jul, IMMUNIZATIONS No Known Immunizations SOCIAL HISTORY Never Assessed REASON FOR VISIT PT was diognosis of strep 34 days ago and still has symptoms and is a strep G ca Reta [facility] PLAN OF CARE VITAL SIGNS Height 74 in 2018-03-10 Weight 289.2 lbs 2018-03-10 Temperature 98.3 degrees Fahrenheit 2018-03-10 Heart Rate 88 bpm 2018-03-10 Respiratory Rate 20 2018-03-10 BMI 37.13 kg/m2 2018-03-10 Blood pressure systolic 152 mmHg 2018-03-10 Blood pressure diastolic 90 mmHg 2018-03-10 MEDICATIONS Medication Instructions Dosage Frequency Start Date End Date Duration S tatus Naproxen 500 MG Orally every 12 hrs 1 tablet as needed 12h 06 Aug, 016 Active Fexofenadine HCl 180 MG Orally Once a day 1 tablet as needed 24h Feb, Aug, 30 day(s) Active Flonase 50 MCG/ACT Nasally Once a day 1 spray in each nostril 24h Feb, 30 day(s) Active Xyzal Active PredniSONE 20 mg Orally Once a day 2 tablets 24h Feb, Feb, 05 days Active Pantoprazole Sodium 20 mg Orally Once a day 1 tablet 24h Feb 30 day(s) Active Depakote ER 500 mg Orally 2 times a day 2 tablets 12h Active Keflex 500 mg Orally 4 times a day 1 capsule 6h Feb, Feb, 10 day(s) Active EPINEPHrine 0.3 MG/0.3ML Injection 1 time as needed 0.3 mg IM Active Flonase 50 MCG/ACT Nasally 2 times a day for allergies 1 spray i n each nostril Jul, Active RESULTS No Results PROCEDURES No Known procedures INSTRUCTIONS MEDICATIONS ADMINISTERED No Known Medications MEDICAL (GENERAL) HISTORY Type Description Date Medical History seizures Medical History allergic rhinitis Medical History mood disorder Medical History back pain
--- OUTSIDE RECORDS SUMMARY | 2020-02-03 17:10 | XMS REPORT ---
Author Author Derek KEITH Organization [facility] Address [address] [place] [address] Care Team Providers Care Toy Maker Name Role Phone ARMANI KEITH Unavailable PROBLEMS Type Condition ICD9-CM Code [id number] Code Onset Dates Condition S tatus SNOMED Code Problem Anxiety F41.9 Active 23881899 Problem Seasonal allergic rhinitis due to other allergic trigger J30.89 Active 760264024 Problem Bladder spasms N32.89 Active 07359 [id number] ALLERGIES No Information ENCOUNTERS Encounter Location Date Diagnosis [place] [id number] [facility] [id number] [address] [place] [address] March, Elevated liver enzymes R74.8 and Abnormal CBC R79.89 [facility] [address] [facility] [id number] [address] [place] [address] March, Encounter for immunization Z 23 [facility] [address] [facility] [id number] [address] [place] [address] March, [facility] [address] [facility] [id number] [address] [place] [address] March, [facility] [address] [facility] [id number] [address] [place] [address] March, Elevated liver enzymes R74.8 and Abnormal CBC R79.89 [facility] [address] [facility] [id number] [address] [place] [address] March, Anxiety F41.9 ; Bronchitis J 40 and Seasonal allergic rhinitis due to other allergic trigger J30.89 [facility] [address] [facility] [id number] [address] [place] [address] March, [facility] [address] [facility] [id number] [address] [place] [address] Feb, [place] [address] [address] Feb, Pharyngitis due to other org anism J02.8 [place] [address] [address] Feb, Pharyngitis due to other org anism J02.8 [facility] [address] [address] Feb, Sore throat J02.9 ; Fatigue, unspecified type R53.83 and Strep pharyngitis J02.0 [facility] [address] [address] Feb, Acute nasopharyngitis J00 [facility] [place] [address] [address] Feb, Lower abdominal pain R10.30 [facility] [place] [address] [address] Feb, Bladder spasms N32.89 and Ur inary frequency R35.0 [facility] [place] [address] [address] Jan, Strep throat J02.0 [facility] [place] [address] [address] Dec, Seasonal allergic rhinitis, unspecified trigger J30.2 [place] [address] [address] Nov, Acute suppurative otitis med ia of both ears without spontaneous rupture of tympanic membranes, recurrence not specified H66.003 [facility] [address] [address] Nov, Acute suppurative otitis med ia of both ears without spontaneous rupture of tympanic membranes, recurrence not specified H66.003 [facility] [address] [place] [address] Nov, Acute suppurative otitis med ia of both ears without spontaneous rupture of tympanic membranes, recurrence not specified H66.003 [place] [address] [address] Oct, [place] [address] [address] 21 Jul, 2017 Seizures R56.9 [place] [address] [address] 14 Jul, 2017 Seizures R56.9 ; Other chron ic pain G89.29 ; Pain in left ankle and joints of left foot M25.572 and Allergic rhinitis, unspecified allergic rhinitis trigger, unspecified rhinitis seasonality J30.9 [facility] [place] [address] [address] 07 Jul, 2017 Acute seasonal allergic rhin itis due to other allergen J30.89 [facility] [place] [address] [address] Jun, Left foot pain M79.672 and L eft lateral ankle pain M25.572 [place] [address] [address] Aug, Allergic rhinitis, unspecifi ed allergic rhinitis trigger, unspecified rhinitis seasonality J30.9 ; Low back pain M54.5 and Other chronic pain G89.29 [facility] [address] [address] Jul, [facility] [address] [address] 12 Jul, 2016 Low back pain M54.5 and Othe r chronic pain G89.29 [facility] [place] [address] [address] 09 Jul, 2016 Acute maxillary sinusitis, r ecurrence not specified J01.00 [facility] [address] [address] Jun, Cellulitis of left lower ext remity L03.116 [facility] [place] [address] [address] Apr, Wrist pain, left M25.532 [facility] [place] [address] [address] March, Low back pain M54.5 ; Fever, unspecified R50.9 and Strep pharyngitis J02.0 [facility] [place] [address] [address] March, Hordeolum externum of left u pper eyelid H00.014 and Acute follicular conjunctivitis of left eye H10.012 [place] [address] [address] Jan, Folliculitis L73.9 [facility] [place] [address] [address] Jan, Screen for sexually transmit yayo diseases Z11.3 [place] [address] [address] Nov, [place] [address] [address] Nov, Gen idiopathic epilepsy, not intractable, 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 [facility] [place] [address] [address] Nov, Malaise R53.81 ; Upper respi ratory infection J06.9 and Pharyngitis J02.9 [facility] [place] [address] [address] Nov, Acute pharyngitis, unspecifi ed J02.9 ; Acute upper respiratory infection, unspecified J06.9 ; Other viral agents as the cause of diseases classified elsewhere B97.89 and Allergic rhinitis J30.9 [facility] [address] [id number] [address] [place] [address] 04 Oct, 2015 Testicular pain N50.8 [facility] [address] [id number] [address] [place] [address] 15 Jul, 2015 Sinusitis 473.9 [facility] [address] [id number] [address] [place] [address] 12 Apr, 2015 Back pain 724.5 [facility] [address] [id number] [address] [place] [address] 11 Apr, 2015 [facility] [address] [id number] [address] [place] [address] Feb, [facility] [address] [id number] [address] [place] [address] Feb, [facility] [address] [id number] [address] [place] [address] Jan, [facility] [address] [id number] [address] [place] [address] Nov, [facility] [address] [id number] [address] [place] [address] Nov, [facility] [address] [id number] [address] [place] [address] Nov, [facility] [address] [id number] [address] [place] [address] Nov, [facility] [address] [id number] [address] [place] [address] Oct, [facility] [address] [id number] [address] [place] [address] Oct, [facility] [address] [id number] [address] [place] [address] Aug, [facility] [address] [id number] [address] [place] [address] Aug, [facility] [address] [id number] [address] [place] [address] Aug, [facility] [address] [id number] [address] [place] [address] Aug, [facility] [address] [id number] [address] [place] [address] Aug, [facility] [address] [id number] [address] [place] [address], [place] [address] Aug, [facility] [address] [id number] [address] [place] [address], [place] [address] Aug, [facility] [address] [id number] [address] [place] [address], [place] [address] Aug, [facility] [address] [id number] [address] [place] [address], [place] [address] Jun, [facility] [address] [id number] [address] [place] [address], [place] [address] Jun, [facility] [address] [id number] [address] [place] [address], [place] [address] Jun, [facility] [address] [id number] [address] [place] [address], [place] [address] Jun, [facility] [address] [id number] [address] [place] [address], [place] [address] Jun, [facility] [address] [id number] [address] [place] [address], [place] [address] Jun, [facility] [address] [id number] [address] [place] [address], [place] [address] Jun, [facility] [address] [id number] [address] [place] [address], [place] [address] Jun, [facility] [address] [id number] [address] [place] [address], [place] [address] Jun, [facility] [address] [id number] [address] [place] [address], [place] [address] Jun, [facility] [address] [id number] [address] [place] [address], [place] [address] May, [facility] [address] [id number] [address] [place] [address], [place] [address] May, [facility] [address] [id number] [address] [place] [address], [place] [address] March, [facility] [address] [id number] [address] [place] [address], [place] [address] March, [facility] [address] [id number] [address] [place] [address], [place] [address] March, [facility] [address] [id number] [address] [place] [address], [place] [address] March, [facility] [address] [id number] [address] [place] [address], [place] [address] Feb, [facility] [address] [id number] [address] [place] [address], [place] [address] Feb, [facility] [address] [id number] [address] [place] [address], [place] [address] Jan, [facility] [address] [id number] [address] [place] [address], [place] [address] Jan, [facility] [address] [id number] [address] [place] [address], [place] [address] Jan, [facility] [address] [id number] [address] [place] [address], [place] [address] Jan, [facility] [address] [id number] [address] [place] [address], [place] [address] Dec, [facility] [address] [id number] [address] [place] [address], [place] [address] Dec, [facility] [address] [id number] [address] [place] [address], [place] [address] Dec, [facility] [address] [id number] [address] [place] [address], [place] [address] 14 Dec, 2013 [facility] [address] [id number] [address] [place] [address], [place] [address] 11 Dec, 2013 [facility] [address] [id number] [address] [place] [address], [place] [address] 11 Dec, 2013 [facility] [address] [id number] [address] [place] [address], [place] [address] Nov, [facility] [address] [id number] [address] [place] [address], [place] [address] Nov, [facility] [address] [id number] [address] [place] [address], [place] [address] Nov, [facility] [address] [id number] [address] [place] [address], [place] [address] Nov, [facility] [address] [id number] [address] [place] [address], [place] [address] Nov, [facility] [address] [id number] [address] [place] [address], [place] [address] Nov, [facility] [address] [id number] [address] [place] [address], [place] [address] Nov, [facility] [address] [id number] [address] [place] [address], [place] [address] Nov, [facility] [address] [id number] [address] [place] [address], [place] [address] Nov, [facility] [address] [id number] [address] [place] [address], [place] [address] Nov, [facility] [address] [id number] [address] [place] [address], [place] [address] Nov, [facility] [address] [id number] [address] [place] [address], [place] [address] Nov, [facility] [address] [id number] [address] [place] [address], [place] [address] Oct, [facility] [address] [id number] [address] [place] [address], [place] [address] Oct, [facility] [address] [id number] [address] [place] [address], [place] [address] Oct, [facility] [address] [id number] [address] [place] [address], [place] [address] Oct, [facility] [address] [id number] [address] [place] [address], [place] [address] Sep, [facility] [address] [id number] [address] [place] [address], [place] [address] Sep, [facility] [address] [id number] [address] [place] [address], [place] [address] Sep, [facility] [address] [id number] [address] [place] [address], [place] [address] Sep, [facility] [address] [id number] [address] [place] [address], [place] [address] Sep, [facility] [address] [id number] [address] [place] [address], [place] [address] Sep, [facility] [address] [id number] [address] [place] [address], [place] [address] Sep, [facility] [address] [id number] [address] [place] [address], [place] [address] Sep, [facility] [address] [id number] [address] [place] [address], [place] [address] 30 Jul, 2013 [facility] [address] [id number] [address] [place] [address], [place] [address] Jul, [facility] [address] [id number] [address] [place] [address], [place] [address] May, [facility] [address] [id number] [address] [place] [address], [place] [address] Apr, [facility] [address] [id number] [address] [place] [address] [place] [address] 24 Apr, 2013 [facility] [address] [id number] [address] [place] [address], [place] [address] 20 Apr, 2013 [facility] [address] [id number] [address] [place] [address], [place] [address] Apr, [facility] [address] [id number] [address] [place] [address], [place] [address] Apr, [facility] [address] [id number] [address] [place] [address], [place] [address] 10 Apr, 2013 [facility] [address] [id number] [address] [place] [address], [place] [address] Apr, [facility] [address] [id number] [address] [place] [address], [place] [address] March, [facility] [address] [id number] [address] [place] [address], [place] [address] March, [facility] [address] [id number] [address] [place] [address], [place] [address] Jan, [facility] [address] [id number] [address] [place] [address], [place] [address] Dec, [facility] [address] [id number] [address] [place] [address], [place] [address] Nov, [facility] [address] [id number] [address] [place] [address], [place] [address] Nov, [facility] [address] [id number] [address] [place] [address], [place] [address] Oct, [facility] [address] [id number] [address] [place] [address], [place] [address] Oct, [facility] [address] [id number] [address] [place] [address], [place] [address] Oct, [facility] [address] [id number] [address] [place] [address], [place] [address] Oct, [facility] [address] [id number] [address] [place] [address], [place] [address] Oct, [facility] [address] [id number] [address] [place] [address], [place] [address] Oct, [facility] [address] [id number] [address] [place] [address], [place] [address] Sep, [facility] [address] [id number] [address] [place] [address], [place] [address] Sep, [facility] [address] [id number] [address] [place] [address], [place] [address] Sep, [facility] [address] [id number] [address] [place] [address], [place] [address] Sep, [facility] [address] [id number] [address] [place] [address], [place] [address] Sep, [facility] [address] [id number] [address] [place] [address], [place] [address] Sep, [facility] [address] [id number] [address] [place] [address], [place] [address] Sep, [facility] [address] [id number] [address] [place] [address], [place] [address] Sep, [facility] [address] [id number] [address] [place] [address], [place] [address] Sep, [facility] [address] [id number] [address] [place] [address], [place] [address] Sep, [facility] [address] [id number] [address] [place] [address], [place] [address] Sep, [facility] [address] [id number] [address] [place] [address], [place] [address] Sep, [facility] [address] [id number] [address] [place] [address], [place] [address] Aug, [facility] [address] [id number] [address] [place] [address], [place] [address] Aug, [facility] [address] [id number] [address] [place] [address], [place] [address] Aug, [facility] [address] [id number] [address] [place] [address], [place] [address] Aug, [facility] [address] [id number] [address] [place] [address], [place] [address] Aug, [facility] [address] [id number] [address] [place] [address], [place] [address] Aug, [facility] [address] [id number] [address] [place] [address], [place] [address] Aug, [facility] [address] [id number] [address] [place] [address], [place] [address] Aug, [facility] [address] [id number] [address] [place] [address], [place] [address] Aug, [facility] [address] [id number] [address] [place] [address], [place] [address] Aug, [facility] [address] [id number] [address] [place] [address], [place] [address] Jul, [facility] [address] [id number] [address] [place] [address], [place] [address] Jul, [facility] [address] [id number] [address] [place] [address], [place] [address] Jun, [facility] [address] [id number] [address] [place] [address], [place] [address] Jun, [facility] [address] [id number] [address] [place] [address], [place] [address] Jun, [facility] [address] [id number] [address] [place] [address], [place] [address] May, [facility] [address] [id number] [address] [place] [address], [place] [address] May, [facility] [address] [id number] [address] [place] [address], [place] [address] May, [facility] [address] [id number] [address] [place] [address], [place] [address] May, [facility] [address] [id number] [address] [place] [address], [place] [address] Apr, [facility] [address] [id number] [address] [place] [address], [place] [address] Apr, [facility] [address] [id number] [address] [place] [address], [place] [address] Apr, [facility] [address] [id number] [address] [place] [address], [place] [address] Apr, [facility] [address] [id number] [address] [place] [address], [place] [address] March, [facility] [address] [id number] [address] [place] [address], [place] [address] Jan, [facility] [address] [id number] [address] [place] [address], [place] [address] Dec, [facility] [address] [id number] [address] [place] [address], [place] [address] Dec, [facility] [address] [id number] [address] [place] [address], [place] [address] Oct, [facility] [address] [id number] [address] [place] [address], [place] [address] Oct, [facility] [address] [id number] [address] [place] [address], [place] [address] Oct, [facility] [address] [id number] [address] [place] [address], [place] [address] Oct, [facility] [address] [id number] [address] [place] [address], [place] [address] 15 Oct, 2011 [facility] [address] [id number] [address] [place] [address], [place] [address] Oct, [facility] [address] [id number] [address] [place] [id number] Oct, [facility] [address] [id number] [address] [place] [id number] Oct, [facility] [address] [id number] [address] [place] [address] Sep, [facility] [address] [id number] [address] [place] [address] Sep, [facility] [address] [id number] [address] [place] [id number] Sep, [facility] [address] [id number] [address] [place] [address] Sep, [facility] [address] [facility] [id number] [address] [place] [id number] Aug, [facility] [address] [id number] [address] [place] [phone] Jul, IMMUNIZATIONS No Known Immunizations SOCIAL HISTORY Never Assessed REASON FOR VISIT FYI only PLAN OF CARE VITAL SIGNS MEDICATIONS Medication Instructions Dosage Frequency Start Date End Date Duration S tatus Azithromycin 250 MG Orally Once a day 2 tablets on the fi rst day, then 1 tablet daily for 4 days 24h Feb, Feb, 5 day(s) Active RESULTS No Results PROCEDURES No Known procedures INSTRUCTIONS MEDICATIONS ADMINISTERED No Known Medications MEDICAL (GENERAL) HISTORY Type Description Date Medical History seizures Medical History allergic rhinitis Medical History mood disorder Medical History back pain
--- OUTSIDE RECORDS SUMMARY | 2020-02-03 17:10 | XMS REPORT ---
Author Author Derek WADDELL [facility] IN [facility] Address [address] [place] [address] Care Team Providers Care Pricing Strategist Name Role Phone WADDELLQUENTIN Unavailable PROBLEMS Type Condition ICD9-CM Code WCY22-ET Code Onset Dates Condition S tatus SNOMED Code Problem Anxiety F41.9 Active 45342138 Problem Seasonal allergic rhinitis due to other allergic trigger J30.89 Active 603456335 Problem Bladder spasms N32.89 Active 94497 7006 ALLERGIES Substance Reaction Event Type Date Status Sulfamethoxazole-TMP DS other Drug Allergy Feb, Acti ve Cephalexin rash Drug Allergy Feb, Active Amoxicillin Unknown Drug Allergy Feb, Active ENCOUNTERS Encounter Location Date Diagnosis [place] [address] [address] [place] [id number] [place] [address] March, Elevated liver enzymes R74.8 and Abnormal CBC R79.89 [place] [address] [address] March, Encounter for immunization Z 23 [place] [address] [place] [id number] [place] [address] March, [place] [address] [place] [id number] [place] [address] March, [place] [address] [place] [id number] [place] [address] March, Elevated liver enzymes R74.8 and Abnormal CBC R79.89 [place] [address] [place] [id number] [place] [address] March, Anxiety F41.9 ; Bronchitis J 40 and Seasonal allergic rhinitis due to other allergic trigger J30.89 [place] [address] [address] March, [facility] [address] [address] Feb, [facility] [address] [address] Feb, Pharyngitis due to other org anism J02.8 [facility] [address] [address] Feb, Pharyngitis due to other org anism J02.8 [facility] [address] [address] Feb, Sore throat J02.9 ; Fatigue, unspecified type R53.83 and Strep pharyngitis J02.0 [facility] [address] [address] Feb, Acute nasopharyngitis J00 [facility] [address] [address] Feb, Lower abdominal pain R10.30 [facility] [address] [address] Feb, Bladder spasms N32.89 and Ur inary frequency R35.0 [facility] [address] [address] Jan, Strep throat J02.0 [facility] [address] [address] Dec, Seasonal allergic rhinitis, unspecified trigger J30.2 [facility] [address] [address] Nov, Acute suppurative otitis med ia of both ears without spontaneous rupture of tympanic membranes, recurrence not specified H66.003 [facility] [address] [address] Nov, Acute suppurative otitis med ia of both ears without spontaneous rupture of tympanic membranes, recurrence not specified H66.003 [facility] [place] [address] [address] Nov, Acute suppurative otitis med ia of both ears without spontaneous rupture of tympanic membranes, recurrence not specified H66.003 [place] [address] [address] Oct, [place] [address] [address] 21 Jul, 2017 Seizures R56.[address] [address] 14 Jul, 2017 Seizures R56.9 ; Other chron ic pain G89.29 ; Pain in left ankle and joints of left foot M25.572 and Allergic rhinitis, unspecified allergic rhinitis trigger, unspecified rhinitis seasonality J30.9 [facility] [address] [address] 07 Jul, 2017 Acute seasonal allergic rhin itis due to other allergen J30.89 [facility] [address] [address] Jun, Left foot pain M79.672 and L eft lateral ankle pain M25.[address] [address] Aug, Allergic rhinitis, unspecifi ed allergic rhinitis trigger, unspecified rhinitis seasonality J30.9 ; Low back pain M54.5 and Other chronic pain G89.29 [facility] [address] [address] Jul, [facility] [address] [address] 12 Jul, 2016 Low back pain M54.5 and Othe r chronic pain G89.29 [facility] [address] [address] Jul, Acute maxillary sinusitis, r ecurrence not specified J01.00 [facility] [place] [address] [address] Jun, Cellulitis of left lower ext remity L03.116 [facility] [place] [address] [address] Apr, Wrist pain, left M25.532 [facility] [place] [address] [address] March, Low back pain M54.5 ; Fever, unspecified R50.9 and Strep pharyngitis J02.0 [facility] [place] [address] [address] March, Hordeolum externum of left u pper eyelid H00.014 and Acute follicular conjunctivitis of left eye H10.012 [place] [address] [address] Jan, Folliculitis L73.9 [facility] [place] [address] [address] Jan, Screen for sexually transmit yayo diseases Z11.3 [place] [address] [address] Nov, [place] [address] [address] Nov, Gen idiopathic epilepsy, not intractable, 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 [facility] [place] [address] [address] Nov, Malaise R53.81 ; Upper respi ratory infection J06.9 and Pharyngitis J02.9 [facility] [place] [address] [address] Nov, Acute pharyngitis, unspecifi ed J02.9 ; Acute upper respiratory infection, unspecified J06.9 ; Other viral agents as the cause of diseases classified elsewhere B97.89 and Allergic rhinitis J30.9 [facility] [address] [id number] [address] [place] [address] 04 Oct, 2015 Testicular pain N50.8 [facility] [address] [id number] [address] [place] [address] 15 Jul, 2015 Sinusitis 473.9 [facility] [address] [id number] [address] [place] [address] 12 Apr, 2015 Back pain 724.5 [facility] [address] [id number] [address] [place] [address] 11 Apr, 2015 [facility] [address] [id number] [address] [place] [address] Feb, [facility] [address] [id number] [address] [place] [address] Feb, [facility] [address] [id number] [address] [place] [address] Jan, [facility] [address] [facility] [id number] [address] [place] [address] Nov, [facility] [address] [facility] [id number] [address] [place] [address] Nov, [facility] [address] [id number] [address] [place] [address] Nov, [facility] [address] [id number] [address] [place] [address] Nov, [facility] [address] [id number] [address] [place] [address] Oct, [facility] [address] [facility] [id number] [address] [place] [address] Oct, [facility] [address] [id number] [address] [place] [address] Aug, [facility] [place] [facility] [address] [id number] [address] [place] [address], [place] [address] Aug, [facility] [place] [facility] [address] [id number] [address] [place] [address], [place] [address] Aug, [facility] [place] [facility] [address] [id number] [address] [place] [address], [place] [address] Aug, [facility] [place] [facility] [address] [id number] [address] [place] [address], [place] [address] Aug, [facility] [place] [facility] [address] [id number] [address] [place] [address], [place] [address] Aug, [facility] [place] [facility] [address] [id number] [address] [place] [address], [place] [address] Aug, [facility] [place] [facility] [address] [id number] [address] [place] [address], [place] [address] Aug, [facility] [place] [facility] [address] [id number] [address] [place] [address], [place] [address] Jun, [facility] [place] [facility] [address] [id number] [address] [place] [address], [place] [address] Jun, [facility] [place] [facility] [address] [id number] [address] [place] [address], [place] [address] Jun, [facility] [place] [facility] [address] [id number] [address] [place] [address], [place] [address] Jun, [facility] [place] [facility] [address] [id number] [address] [place] [address], [place] [address] Jun, [facility] [place] [facility] [address] [id number] [address] [place] [address], [place] [address] Jun, [facility] [place] [facility] [address] [id number] [address] [place] [address], [place] [address] Jun, [facility] [place] [facility] [address] [id number] [address] [place] [address], [place] [address] Jun, [facility] [place] [facility] [address] [id number] [address] [place] [address], [place] [address] Jun, [facility] [address] [id number] [address] [place] [address], [place] [address] Jun, [facility] [address] [id number] [address] [place] [address], [place] [address] May, [facility] [address] [id number] [address] [place] [address], [place] [address] May, [facility] [address] [id number] [address] [place] [address], [place] [address] March, [facility] [address] [id number] [address] [place] [address], [place] [address] March, [facility] [address] [id number] [address] [place] [address], [place] [address] March, [facility] [address] [id number] [address] [place] [address], [place] [address] March, [facility] [address] [id number] [address] [place] [address], [place] [address] Feb, [facility] [address] [id number] [address] [place] [address], [place] [address] Feb, [facility] [address] [id number] [address] [place] [address], [place] [address] Jan, [facility] [address] [id number] [address] [place] [address], [place] [address] Jan, [facility] [address] [id number] [address] [place] [address], [place] [address] Jan, [facility] [place] [facility] [address] [id number] [address] [place] [address], [place] [address] Jan, [facility] [address] [id number] [address] [place] [address], [place] [address] Dec, [facility] [address] [id number] [address] [place] [address], [place] [address] 18 Dec, 2013 [facility] [address] [id number] [facility] [place] [address] 14 Dec, 2013 [facility] [place] [facility] [address] [id number] [address] [place] [address], [place] [address] 14 Dec, 2013 [facility] [address] [id number] [facility] [place] [address] Dec, [facility] [place] [facility] [address] [id number] [address] [place] [address], [place] [address] Dec, [facility] [address] [id number] [address] [place] [address], [place] [address] Nov, [facility] [address] [id number] [address] [place] [address], [place] [address] Nov, [facility] [address] [id number] [address] [place] [address], [place] [address] Nov, [facility] [place] [facility] [address] [id number] [address] [place] [address], [place] [address] Nov, [facility] [address] [id number] [address] [place] [address], [place] [address] Nov, [facility] [address] [id number] [address] [place] [address], [place] [address] Nov, [facility] [place] [facility] [address] [id number] [address] [place] [address], [place] [address] Nov, [facility] [place] [facility] [address] [id number] [address] [place] [address], [place] [address] Nov, [facility] [place] [facility] [address] [id number] [address] [place] [address], [place] [address] Nov, [facility] [place] [facility] [address] [id number] [address] [place] [address], [place] [address] Nov, [facility] [place] [facility] [address] [id number] [address] [place] [address], [place] [address] Nov, [facility] [place] [facility] [address] [id number] [address] [place] [address], [place] [address] Nov, [facility] [address] [id number] [address] [place] [address], [place] [address] Oct, [facility] [address] [id number] [address] [place] [address], [place] [address] Oct, [facility] [address] [id number] [address] [place] [address], [place] [address] Oct, [facility] [address] [id number] [address] [place] [address], [place] [address] Oct, [facility] [address] [id number] [address] [place] [address], [place] [address] Sep, [facility] [address] [id number] [address] [place] [address], [place] [address] Sep, [facility] [address] [id number] [address] [place] [address], [place] [address] Sep, [facility] [address] [id number] [address] [place] [address], [place] [address] Sep, [facility] [address] [id number] [address] [place] [address], [place] [address] Sep, [facility] [address] [id number] [address] [place] [address], [place] [address] Sep, [facility] [address] [id number] [address] [place] [address], [place] [address] Sep, [facility] [address] [id number] [address] [place] [address], [place] [address] Sep, [facility] [address] [id number] [address] [place] [address], [place] [address] 30 Jul, 2013 [facility] [address] [id number] [address] [place] [address], [place] [address] 26 Jul, 2013 [facility] [address] [id number] [address] [place] [address], [place] [address] May, [facility] [address] [id number] [address] [place] [address], [place] [address] Apr, [facility] [address] [id number] [address] [place] [address], [place] [address] 24 Apr, 2013 [facility] [address] [id number] [address] [place] [address], [place] [address] Apr, [facility] [address] [id number] [address] [place] [address], [place] [address] Apr, [facility] [address] [id number] [address] [place] [address], [place] [address] Apr, [facility] [address] [id number] [address] [place] [address], [place] [address] Apr, [facility] [address] [id number] [address] [place] [address], [place] [address] Apr, [facility] [address] [id number] [address] [place] [address], [place] [address] March, [facility] [address] [id number] [address] [place] [address], [place] [address] March, [facility] [address] [id number] [address] [place] [address], [place] [address] Jan, [facility] [address] [id number] [address] [place] [address], [place] [address] Dec, [facility] [address] [id number] [address] [place] [address], [place] [address] Nov, [facility] [address] [id number] [address] [place] [address], [place] [address] Nov, [facility] [address] [id number] [address] [place] [address], [place] [address] Oct, [facility] [address] [id number] [address] [place] [address], [place] [address] Oct, [facility] [address] [id number] [address] [place] [address], [place] [address] Oct, [facility] [address] [id number] [address] [place] [address], [place] [address] Oct, [facility] [address] [id number] [address] [place] [address], [place] [address] Oct, [facility] [address] [id number] [address] [place] [address], [place] [address] Oct, [facility] [address] [id number] [address] [place] [address], [place] [address] Sep, [facility] [address] [id number] [address] [place] [address], [place] [address] Sep, [facility] [address] [id number] [address] [place] [address], [place] [address] Sep, [facility] [address] [id number] [address] [place] [address], [place] [address] Sep, [facility] [address] [id number] [address] [place] [address], [place] [address] Sep, [facility] [address] [id number] [address] [place] [address], [place] [address] Sep, [facility] [address] [id number] [address] [place] [address], [place] [id number] Sep, [facility] [address] [id number] [address] [place] [address], [place] [address] Sep, [facility] [address] [id number] [address] [place] [address], [place] [address] Sep, [facility] [address] [id number] [address] [place] [address], [place] [address] Sep, [facility] [address] [id number] [address] [place] [address], [place] [address] Sep, [facility] [address] [id number] [address] [place] [address], [place] [address] Sep, [facility] [place] [facility] [address] [id number] [address] [place] [address], [place] [address] Aug, [facility] [place] [facility] [address] [id number] [address] [place] [address], [place] [address] Aug, [facility] [place] [facility] [address] [id number] [address] [place] [address], [place] [address] Aug, [facility] [place] [facility] [address] [id number] [address] [place] [address], [place] [address] Aug, [facility] [place] [facility] [address] [id number] [address] [place] [address], [place] [id number] Aug, [facility] [place] [facility] [address] [id number] [address] [place] [address], [place] [id number] Aug, [facility] [address] [id number] [address] [place] [address], [place] [id number] Aug, [facility] [place] [facility] [address] [id number] [address] [place] [address], [place] [id number] Aug, [facility] [address] [id number] [address] [place] [address], [place] [id number] Aug, [facility] [address] [id number] [address] [place] [address], [place] [id number] Aug, [facility] [place] [facility] [address] [id number] [address] [place] [address], [place] [id number] 24 Jul, 2012 [facility] [place] [facility] [address] [id number] [address] [place] [address], [place] [id number] Jul, [facility] [place] [facility] [address] [id number] [address] [place] [address], [place] [id number] Jun, [facility] [place] [facility] [address] [id number] [address] [place] [address], [place] [id number] Jun, [facility] [place] [facility] [address] [id number] [address] [place] [address], [place] [id number] Jun, [facility] [place] [facility] [address] [id number] [address] [place] [address], [place] [id number] May, [facility] [address] [id number] [address] [place] [address], [place] [id number] May, [facility] [address] [id number] [address] [place] [address], [place] [id number] May, [facility] [address] [id number] [address] [place] [address], [place] [id number] May, [facility] [address] [id number] [address] [place] [address], [place] [id number] Apr, [facility] [address] [id number] [address] [place] [address], [place] [id number] Apr, [facility] [address] [id number] [address] [place] [address], [place] [id number] Apr, [facility] [address] [id number] [address] [place] [address], [place] [id number] Apr, [facility] [address] [id number] [address] [place] [address], [place] [id number] March, [facility] [address] [id number] [address] [place] [address], [place] [id number] Jan, [facility] [address] [id number] [address] [place] [address], [place] [address] Dec, [facility] [address] [id number] [address] [place] [address], [place] [id number] Dec, [facility] [address] [id number] [address] [place] [address], [place] [id number] Oct, [facility] [address] [id number] [address] [place] [address], [place] [id number] Oct, [facility] [address] [id number] [address] [place] [address], [place] [id number] Oct, [facility] [address] [id number] [address] [place] [address], [place] [id number] Oct, [facility] [address] [id number] [address] [place] [id number] 15 Oct, 2011 [facility] [address] [id number] [address] [place] [id number] 15 Oct, 2011 [facility] [address] [id number] [address] [place] [id number] Oct, [facility] [address] [id number] [address] [place] [id number] Oct, [facility] [address] [id number] [address] [place] [id number] Sep, [facility] [address] [id number] [address] [place] [id number] Sep, [facility] [address] [id number] [address] [place] [id number] Sep, [facility] [address] [id number] [address] [place] [id number] Sep, [facility] [address] [id number] [address] [place] [id number] Aug, [facility] [address] [id number] [address] [place] [id number] Jul, IMMUNIZATIONS Vaccine Route Administration Date Status ROCEPHIN 1 GM (IM) IM Intramuscular March 04, 2018 Administered SOCIAL HISTORY Never Assessed REASON FOR VISIT Sore throat/cough JStrasserRN PLAN OF CARE Activity Details Follow Up prn Reason: VITAL SIGNS Height 74 in 2018-03-04 Weight 291.2 lbs 2018-03-04 Temperature 98.0 degrees Fahrenheit 2018-03-04 Heart Rate 100 bpm 2018-03-04 Respiratory Rate 20 2018-03-04 BMI 37.38 kg/m2 2018-03-04 Blood pressure systolic 130 mmHg 2018-03-04 Blood pressure diastolic 90 mmHg 2018-03-04 MEDICATIONS Medication Instructions Dosage Frequency Start Date End Date Duration S tatus Keppra XR 500 MG Orally Once a day 2 tablets 24h 30 days Not-Taking Depakote ER 500 mg Orally 2 times a day 2 tablets 12h Active EPINEPHrine 0.3 MG/0.3ML Injection 1 time as needed 0.3 mg IM Active Pseudoephedrine HCl 60 mg Orally every 4-6 hrs PRN 1 tablet as need ed Nov, Not-Taking Naproxen 500 MG Orally every 12 hrs 1 tablet as needed 12h 06 Aug, 2 016 Active Flonase 50 MCG/ACT Nasally 2 times a day for allergies 1 spray i n each nostril 15 Jul, 2015 Active RESULTS Name Result Date Reference Range MONO TEST (IN HOUSE) 2018-03-04 RESULTS negative Control + Lot # [id number] Exp date 2018-05 STREP A (IN HOUSE) 2018-03-04 STREP A positive Control + Lot # [id number] Exp date 2020-09-03 PROCEDURES Procedure Date Ordered Result Body Site STREP A ASSAY W/OPTIC March 04, 2018 HETEROPHILE ANTIBODIES March 04, 2018 ROCEPHIN 1 GM (IM) March 04, 2018 THER/PROPH/DIAG INJ, SC/IM March 04, 2018 INSTRUCTIONS MEDICATIONS ADMINISTERED No Known Medications MEDICAL (GENERAL) HISTORY Type Description Date Medical History seizures Medical History allergic rhinitis Medical History mood disorder Medical History back pain
--- OUTSIDE RECORDS SUMMARY | 2020-02-03 17:11 | XMS REPORT ---
Author Author Derek SALAZAR Organization [facility] [place] Address [address] [place] [address] Care Team Providers Care Licensed Midwife Name Role Phone SHEILA SALAZARWNYA Unavailable PROBLEMS Type Condition ICD9-CM Code QGY00-ZW Code Onset Dates Condition S tatus SNOMED Code Problem Anxiety F41.9 Active 53526945 Problem Seasonal allergic rhinitis due to other allergic trigger J30.89 Active 948895961 Problem Bladder spasms N32.89 Active 57679 7006 ALLERGIES Substance Reaction Event Type Date Status Sulfamethoxazole-TMP DS other Drug Allergy Jan, Acti ve Cephalexin rash Drug Allergy Jan, Active Amoxicillin Unknown Drug Allergy Jan, Active ENCOUNTERS Encounter Location Date Diagnosis [place] [address] [place] [id number] [address] [place] [address] March, Elevated liver enzymes R74.8 and Abnormal CBC R79.89 [place] [address] [place] [id number] [address] [place] [address] March, Encounter for immunization Z 23 [place] [address] [place] [id number] [address] [place] [address] March, [place] [address] [place] [id number] [place] [address] March, [place] [address] [place] [id number] [address] [place] [address] March, Elevated liver enzymes R74.8 and Abnormal CBC R79.89 [place] [address] [place] [id number] [address] [place] [address] March, Anxiety F41.9 ; Bronchitis J 40 and Seasonal allergic rhinitis due to other allergic trigger J30.89 [place] [address] [address] March, [facility] [place] [address] [address] Feb, [facility] [place] [address] [address] Feb, Pharyngitis due to other org anism J02.8 [place] [address] [address] Feb, Pharyngitis due to other org anism J02.[address] [facility] [place] [facility] [address] [address] Feb, Sore throat J02.9 ; Fatigue, unspecified type R53.83 and Strep pharyngitis J02.0 [facility] [address] [address] Feb, Acute nasopharyngitis J00 [facility] [address] [address] Feb, Lower abdominal pain R10.30 [facility] [address] [address] Feb, Bladder spasms N32.89 and Ur inary frequency R35.0 [facility] [address] [address] Jan, Strep throat J02.0 [facility] N [address] [address] Dec, Seasonal allergic rhinitis, unspecified trigger J30.2 [place] [address] [address] Nov, Acute suppurative otitis med ia of both ears without spontaneous rupture of tympanic membranes, recurrence not specified H66.003 [facility] N [address] [address] Nov, Acute suppurative otitis med ia of both ears without spontaneous rupture of tympanic membranes, recurrence not specified H66.[address] [facility] [place] [facility] IN [place] [address] [address] Nov, Acute suppurative otitis med ia of both ears without spontaneous rupture of tympanic membranes, recurrence not specified H66.003 [place] [address] [address] Oct, [place] [address] [address] 21 Jul, 2017 Seizures R56.[address] [address] 14 Jul, 2017 Seizures R56.9 ; Other chron ic pain G89.29 ; Pain in left ankle and joints of left foot M25.572 and Allergic rhinitis, unspecified allergic rhinitis trigger, unspecified rhinitis seasonality J30.9 [facility] [address] [address] 07 Jul, 2017 Acute seasonal allergic rhin itis due to other allergen J30.89 [facility] WALK IN [address] [address] Jun, Left foot pain M79.672 and L eft lateral ankle pain M25.[address] [address] Aug, Allergic rhinitis, unspecifi ed allergic rhinitis trigger, unspecified rhinitis seasonality J30.9 ; Low back pain M54.5 and Other chronic pain G89.[address] [facility] [place] W[facility] IN [address] [address] Jul, [facility] [address] [address] 12 Jul, 2016 Low back pain M54.5 and Othe r chronic pain G89.[address] [facility] [address] [address] Jul, Acute maxillary sinusitis, r ecurrence not specified J01.00 [facility] WALK IN [place] [address] [address] Jun, Cellulitis of left lower ext remity L03.116 [facility] WALK IN [place] [address] [address] Apr, Wrist pain, left M25.532 [facility] WALK IN [place] [address] [address] March, Low back pain M54.5 ; Fever, unspecified R50.9 and Strep pharyngitis J02.0 [facility] WALK IN [place] [address] [address] March, Hordeolum externum of left u pper eyelid H00.014 and Acute follicular conjunctivitis of left eye H10.012 [place] [address] [address] Jan, Folliculitis L73.9 [facility] WALK IN [place] [address] [address] Jan, Screen for sexually transmit yayo diseases Z11.3 [place] [address] [address] Nov, [place] [address] [address] Nov, Gen idiopathic epilepsy, not intractable, 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 [facility] WALK IN [place] [address] [address] Nov, Malaise R53.81 ; Upper respi ratory infection J06.9 and Pharyngitis J02.9 [facility] WALK IN [place] [address] [address] Nov, Acute pharyngitis, unspecifi ed J02.9 ; Acute upper respiratory infection, unspecified J06.9 ; Other viral agents as the cause of diseases classified elsewhere B97.89 and Allergic rhinitis J30.9 [facility] [address] [id number] [address] [place] [address] 04 Oct, 2015 Testicular pain N50.8 [facility] [place] [address] [id number] [address] [place] [address] 15 Jul, 2015 Sinusitis 473.9 [facility] [place] [address] [id number] [address] [place] [address] 12 Apr, 2015 Back pain 724.5 [facility] [place] [address] [id number] [address] [place] [address] 11 Apr, 2015 [facility] [place] [address] [facility] [id number] [address] [place] [address] 14 Feb, 2015 [facility] [place] [address] [id number] [address] [place] [address] Feb, [facility] [place] [address] [id number] [address] [place] [address] Jan, [facility] [place] [address] [facility] [id number] [address] [place] [address] Nov, [facility] [place] [address] [facility] [id number] [address] [place] [address] Nov, [facility] [place] [address] [id number] [address] [place] [address] Nov, [facility] [place] [address] [id number] [address] [place] [address] Nov, [facility] [place] [address] [facility] [id number] [address] [place] [address] Oct, [facility] [place] [address] [id number] [address] [place] [address] Oct, [facility] [place] [address] [id number] [address] [place] [address] Aug, [facility] [address] [id number] [address] [place] [address], [place] [address] Aug, [facility] [address] [id number] [address] [place] [address], [place] [address] Aug, [facility] [address] [id number] [address] [place] [address], [place] [address] Aug, [facility] [address] [id number] [address] [place] [address], [place] [address] Aug, [facility] [address] [id number] [address] [place] [address], [place] [address] Aug, [facility] [address] [id number] [address] [place] [address], [place] [address] Aug, [facility] [address] [id number] [address] [place] [address], [place] [address] Aug, [facility] [address] [id number] [address] [place] [address], [place] [address] Jun, [facility] [address] [id number] [address] [place] [address], [place] [address] Jun, [facility] [address] [id number] [address] [place] [address], [place] [address] Jun, [facility] [address] [id number] [address] [place] [address], [place] [address] Jun, [facility] [address] [id number] [address] [place] [address], [place] [address] Jun, [facility] [address] [id number] [address] [place] [address], [place] [address] Jun, [facility] [address] [id number] [address] [place] [address], [place] [address] Jun, [facility] [address] [id number] [address] [place] [address], [place] [address] Jun, [facility] [address] [id number] [address] [place] [address], [place] [address] Jun, [facility] [address] [id number] [address] [place] [address], [place] [address] Jun, [facility] [address] [id number] [address] [place] [address], [place] [address] May, [facility] [address] [id number] [address] [place] [address], [place] [address] May, [facility] [address] [id number] [address] [place] [address], [place] [address] March, [facility] [address] [id number] [address] [place] [address], [place] [address] March, [facility] [address] [id number] [address] [place] [address], [place] [address] March, [facility] [address] [id number] [address] [place] [address], [place] [address] March, [facility] [address] [id number] [address] [place] [address], [place] [address] Feb, [facility] [address] [id number] [address] [place] [address], [place] [address] Feb, [facility] [address] [id number] [address] [place] [address], [place] [address] Jan, [facility] [address] [id number] [address] [place] [address], [place] [address] Jan, [facility] [address] [id number] [address] [place] [address], [place] [address] Jan, [facility] [address] [id number] [address] [place] [address], [place] [address] Jan, [facility] [address] [id number] [address] [place] [address], [place] [address] Dec, [facility] [address] [id number] [address] [place] [address], [place] [address] Dec, [facility] [address] [id number] [facility] [place] [address] 14 Dec, 2013 [facility] [address] [id number] [address] [place] [address], [place] [address] 14 Dec, 2013 [facility] [address] [id number] [address] [place] [address], [place] [address] Dec, [facility] [address] [id number] [address] [place] [address], [place] [address] Dec, [facility] [address] [id number] [address] [place] [address], [place] [address] Nov, [facility] [address] [id number] [address] [place] [address], [place] [address] Nov, [facility] [address] [id number] [address] [place] [address], [place] [address] Nov, [facility] [address] [id number] [address] [place] [address], [place] [address] Nov, [facility] [address] [id number] [address] [place] [address], [place] [address] Nov, [facility] [address] [id number] [address] [place] [address], [place] [address] Nov, [facility] [address] [id number] [address] [place] [address], [place] [address] Nov, [facility] [address] [id number] [address] [place] [address], [place] [address] Nov, [facility] [address] [id number] [address] [place] [address], [place] [address] Nov, [facility] [address] [id number] [address] [place] [address], [place] [address] Nov, [facility] [address] [id number] [address] [place] [address], [place] [address] Nov, [facility] [address] [id number] [address] [place] [address], [place] [address] Nov, [facility] [address] [id number] [address] [place] [address], [place] [address] Oct, [facility] [address] [id number] [address] [place] [address], [place] [address] Oct, [facility] [address] [id number] [address] [place] [address], [place] [address] Oct, [facility] [address] [id number] [address] [place] [address], [place] [address] Oct, [facility] [address] [id number] [address] [place] [address], [place] [address] Sep, [facility] [address] [id number] [address] [place] [address], [place] [address] Sep, [facility] [address] [id number] [address] [place] [address], [place] [address] Sep, [facility] [address] [id number] [address] [place] [address], [place] [address] Sep, [facility] [address] [id number] [address] [place] [address], [place] [address] Sep, [facility] [address] [id number] [address] [place] [address], [place] [address] Sep, [facility] [address] [id number] [address] [place] [address], [place] [address] Sep, [facility] [address] [id number] [address] [place] [address], [place] [address] Sep, [facility] [address] [id number] [address] [place] [address], [place] [address] 30 Jul, 2013 [facility] [address] [id number] [address] [place] [address], [place] [address] 26 Jul, 2013 [facility] [address] [id number] [address] [place] [address], [place] [address] 17 May, 2013 [facility] [address] [id number] [address] [place] [address], [place] [address] Apr, [facility] [address] [id number] [address] [place] [address], [place] [address] 24 Apr, 2013 [facility] [address] [id number] [address] [place] [address], [place] [address] Apr, [facility] [address] [id number] [address] [place] [address], [place] [address] Apr, [facility] [address] [id number] [address] [place] [address], [place] [address] Apr, [facility] [address] [id number] [address] [place] [address], [place] [address] Apr, [facility] [address] [id number] [address] [place] [address], [place] [address] Apr, [facility] [address] [id number] [address] [place] [address], [place] [address] March, [facility] [address] [id number] [address] [place] [address], [place] [address] March, [facility] [address] [id number] [address] [place] [address], [place] [address] Jan, [facility] [address] [id number] [address] [place] [address], [place] [address] Dec, [facility] [address] [id number] [address] [place] [address], [place] [address] Nov, [facility] [address] [id number] [address] [place] [address], [place] [address] Nov, [facility] [address] [id number] [address] [place] [address], [place] [address] Oct, [facility] [address] [id number] [address] [place] [address], [place] [address] Oct, [facility] [address] [id number] [address] [place] [address], [place] [address] Oct, [facility] [address] [id number] [address] [place] [address], [place] [address] Oct, [facility] [address] [id number] [address] [place] [address], [place] [address] Oct, [facility] [address] [id number] [address] [place] [address], [place] [address] Oct, [facility] [address] [id number] [address] [place] [address], [place] [address] Sep, [facility] [address] [id number] [address] [place] [address], [place] [address] Sep, [facility] [address] [id number] [address] [place] [address], [place] [address] Sep, [facility] [address] [id number] [address] [place] [address], [place] [address] Sep, [facility] [address] [id number] [address] [place] [address], [place] [address] Sep, [facility] [address] [id number] [address] [place] [address], [place] [address] Sep, [facility] [address] [id number] [address] [place] [address], [place] [address] Sep, [facility] [address] [id number] [address] [place] [address], [place] [address] Sep, [facility] [address] [id number] [address] [place] [address], [place] [address] Sep, [facility] [address] [id number] [address] [place] [address], [place] [address] Sep, [facility] [address] [id number] [address] [place] [address], [place] [address] Sep, [facility] [address] [id number] [address] [place] [address], [place] [address] Sep, [facility] [address] [id number] [address] [place] [address], [place] [address] Aug, [facility] [address] [id number] [address] [place] [address], [place] [address] Aug, [facility] [address] [id number] [address] [place] [address], [place] [address] Aug, [facility] [address] [id number] [address] [place] [address], [place] [address] Aug, [facility] [address] [id number] [address] [place] [address], [place] [address] Aug, [facility] [address] [id number] [address] [place] [address], [place] [address] Aug, [facility] [address] [id number] [address] [place] [address], [place] [address] Aug, [facility] [address] [id number] [address] [place] [address], [place] [address] Aug, [facility] [address] [id number] [address] [place] [address], [place] [address] Aug, [facility] [address] [id number] [address] [place] [address], [place] [address] Aug, [facility] [address] [id number] [address] [place] [address], [place] [address] 24 Jul, 2012 [facility] [address] [id number] [address] [place] [address], [place] [address] Jul, [facility] [address] [id number] [address] [place] [address], [place] [address] Jun, [facility] [address] [id number] [address] [place] [address], [place] [address] Jun, [facility] [address] [id number] [address] [place] [address], [place] [address] Jun, [facility] [address] [id number] [address] [place] [address], [place] [address] May, [facility] [address] [id number] [facility] [place] [address] May, [facility] [address] [id number] [address] [place] [address], [place] [address] May, [facility] [address] [id number] [address] [place] [address], [place] [address] May, [facility] [address] [id number] [address] [place] [address], [place] [address] Apr, [facility] [address] [id number] [address] [place] [address], [place] [address] Apr, [facility] [address] [id number] [address] [place] [address], [place] [address] Apr, [facility] [address] [id number] [address] [place] [address], [place] [address] Apr, [facility] [address] [id number] [address] [place] [address], [place] [address] March, [facility] [address] [id number] [address] [place] [address], [place] [address] Jan, [facility] [address] [id number] [address] [place] [address], [place] [address] Dec, [facility] [address] [id number] [address] [place] [address], [place] [address] Dec, [facility] [address] [id number] [address] [place] [address], [place] [address] Oct, [facility] [address] [id number] [address] [place] [address], [place] [address] Oct, [facility] [address] [id number] [address] [place] [address], [place] [address] Oct, [facility] [address] [id number] [address] [place] [address], [place] [address] Oct, [facility] [address] [id number] [address] [place] [id number] 15 Oct, 2011 [facility] [place] [address] [id number] [address] [place] [id number] 15 Oct, 2011 [facility] [place] [address] [id number] [address] [place] [id number] Oct, [facility] [place] [address] [id number] [address] [place] [address] Oct, [facility] [place] [address] [address] [id number] [address] [place] [id number] Sep, [facility], [place], [facility] [address] [id number] [address] [place] [id number] Sep, [facility] [place], [facility] [address] [id number] [address] [place] [phone] Sep, [facility] [place], [facility] [address] [id number] [address] [place] [phone] Sep, [facility] [place], [facility] [address] [id number] [address] [place] [phone] Aug, [facility] [place], [facility] [address] [id number] [address] [place] [phone] Jul, IMMUNIZATIONS No Known Immunizations SOCIAL HISTORY Never Assessed REASON FOR VISIT Sore throat as of today. Pt states his tonsils are swollen and painful. 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 PLAN OF CARE Activity Details Follow Up if not improving with PCP or reg follow up Reason: VITAL SIGNS Height 74 in 2018-02-13 Weight 296 lbs 2018-02-13 Temperature 98.9 degrees Fahrenheit 2018-02-13 Heart Rate 90 bpm 2018-02-13 Respiratory Rate 20 2018-02-13 BMI 38.00 kg/m2 2018-02-13 Blood pressure systolic 130 mmHg 2018-02-13 Blood pressure diastolic 80 mmHg 2018-02-13 MEDICATIONS Medication Instructions Dosage Frequency Start Date End Date Duration S robert Clindamycin HCl 150 MG Orally 4 times a day 1 capsule 6h Jan, Feb, 10 days Active Depakote ER 500 mg Orally 2 times a day 2 tablets 12h Active Keppra XR 500 MG Orally Once a day 2 tablets 24h 30 days Not-Taking Naproxen 500 MG Orally every 12 hrs 1 tablet as needed 12h 06 Aug, 016 Active Flonase 50 MCG/ACT Nasally 2 times a day for allergies 1 spray i n each nostril Jul, Active EPINEPHrine 0.3 MG/0.3ML Injection 1 time as needed 0.3 mg IM Active Pseudoephedrine HCl 60 mg Orally every 4-6 hrs PRN 1 tablet as need ed Nov, Active RESULTS No Results PROCEDURES No Known procedures INSTRUCTIONS MEDICATIONS ADMINISTERED No Known Medications MEDICAL (GENERAL) HISTORY Type Description Date Medical History seizures Medical History allergic rhinitis Medical History mood disorder Medical History back pain
--- OUTSIDE RECORDS SUMMARY | 2020-02-03 17:11 | XMS REPORT ---
Author Author Derek GORDON [facility] Address [address] [place] [address] Care Team Providers Care Material Damage Adjuster Name Role Phone GORDONROBINSONMARIN Unavailable PROBLEMS Type Condition ICD9-CM Code [id number] Code Onset Dates Condition S tatus SNOMED Code Problem Anxiety F41.9 Active 05653423 Problem Seasonal allergic rhinitis due to other allergic trigger J30.89 Active 725440215 Problem Bladder spasms N32.89 Active 24806 7006 ALLERGIES Substance Reaction Event Type Date Status Sulfamethoxazole-TMP DS other Drug Allergy Feb, Acti ve Cephalexin rash Drug Allergy Feb, Active Amoxicillin Unknown Drug Allergy Feb, Active ENCOUNTERS Encounter Location Date Diagnosis [place] [address] [place] [id number] [place] [address] March, Elevated liver enzymes R74.8 and Abnormal CBC R79.89 [place] [address] [place] [id number] [place] [address] March, Encounter for immunization Z 23 [place] [address] [place] [id number] [place] [address] March, [place] [address] [place] [id number] [place] [address] March, [place] [address] [place] [address] March, Elevated liver enzymes R74.8 and Abnormal CBC R79.89 [place] [address] [place] [id number] [place] [address] March, Anxiety F41.9 ; Bronchitis J 40 and Seasonal allergic rhinitis due to other allergic trigger J30.89 [place] [address] [address] March, [facility] [address] [address] Feb, [place] [address] [address] Feb, Pharyngitis due to other org anism J02.8 [place] [address] [address] Feb, Pharyngitis due to other org anism J02.8 [facility] [address] [address] Feb, Sore throat J02.9 ; Fatigue, unspecified type R53.83 and Strep pharyngitis J02.0 [facility] [address] [address] Feb, Acute nasopharyngitis J00 [facility] [address] [address] Feb, Lower abdominal pain R10.30 [facility] [address] [address] Feb, Bladder spasms N32.89 and Ur inary frequency R35.0 [facility] [address] [address] Jan, Strep throat J02.0 [facility] [address] [address] Dec, Seasonal allergic rhinitis, unspecified trigger J30.2 [place] [address] [address] Nov, Acute suppurative otitis med ia of both ears without spontaneous rupture of tympanic membranes, recurrence not specified H66.003 [facility] [address] [address] Nov, Acute suppurative otitis med ia of both ears without spontaneous rupture of tympanic membranes, recurrence not specified H66.003 [facility] [place] [address] [address] Nov, Acute suppurative otitis med ia of both ears without spontaneous rupture of tympanic membranes, recurrence not specified H66.003 [place] [address] [address] Oct, [place] [address] [address] 21 Jul, 2017 Seizures R56.9 [place] [address] [address] 14 Jul, 2017 Seizures R56.9 ; Other chron ic pain G89.29 ; Pain in left ankle and joints of left foot M25.572 and Allergic rhinitis, unspecified allergic rhinitis trigger, unspecified rhinitis seasonality J30.9 [facility] W[facility] [place] [address] [address] 07 Jul, 2017 Acute seasonal allergic rhin itis due to other allergen J30.89 [facility] WALK IN [address] [address] Jun, Left foot pain M79.672 and L eft lateral ankle pain M25.[address] [address] Aug, Allergic rhinitis, unspecifi ed allergic rhinitis trigger, unspecified rhinitis seasonality J30.9 ; Low back pain M54.5 and Other chronic pain G89.29 [facility] [address] [address] Jul, [facility] [address] [address] 12 Jul, 2016 Low back pain M54.5 and Othe r chronic pain G89.29 [facility] [place] [address] [address] Jul, Acute maxillary sinusitis, r ecurrence not specified J01.00 [facility] WALK IN [place] [address] [address] Jun, Cellulitis of left lower ext remity L03.116 [facility] WALK IN [place] [address] [address] Apr, Wrist pain, left M25.532 [facility] WALK IN [place] [address] [address] March, Low back pain M54.5 ; Fever, unspecified R50.9 and Strep pharyngitis J02.0 [facility] WALK IN [place] [address] [address] March, Hordeolum externum of left u pper eyelid H00.014 and Acute follicular conjunctivitis of left eye H10.012 [place] [address] [address] Jan, Folliculitis L73.9 [facility] WALK IN [place] [address] [address] Jan, Screen for sexually transmit yayo diseases Z11.3 [place] [address] [address] Nov, [place] [address] [address] Nov, Gen idiopathic epilepsy, not intractable, 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 [facility] WALK IN [place] [address] [address] Nov, Malaise R53.81 ; Upper respi ratory infection J06.9 and Pharyngitis J02.9 [facility] WALK IN [place] [address] [address] Nov, Acute pharyngitis, unspecifi ed J02.9 ; Acute upper respiratory infection, unspecified J06.9 ; Other viral agents as the cause of diseases classified elsewhere B97.89 and Allergic rhinitis J30.9 [facility] [address] [id number] [address] [place] [address] 04 Oct, 2015 Testicular pain N50.8 [facility] [address] [id number] [address] [place] [address] 15 Jul, 2015 Sinusitis 473.9 [facility] [address] [facility] [id number] [address] [place] [address] 12 Apr, 2015 Back pain 724.5 [facility] [address] [id number] [address] [place] [address] 11 Apr, 2015 [facility] [address] [facility] [id number] [address] [place] [address] 14 Feb, 2015 [facility] [address] [facility] [id number] [address] [place] [address] Feb, [facility] [address] [facility] [id number] [address] [place] [address] Jan, [facility] [address] [facility] [id number] [address] [place] [address] Nov, [facility] [address] [facility] [id number] [address] [place] [address] Nov, [facility] [address] [id number] [address] [place] [address] Nov, [facility] [address] [facility] [id number] [address] [place] [address] Nov, [facility] [address] [facility] [id number] [address] [place] [address] Oct, [facility] [address] [facility] [id number] [address] [place] [address] Oct, [facility] [address] [facility] [id number] [address] [place] [address] Aug, [facility] [address] [id number] [address] [place] [address], [place] [address] Aug, [facility] [address] [id number] [address] [place] [address], [place] [address] Aug, [facility] [address] [id number] [address] [place] [address], [place] [address] Aug, [facility] [address] [id number] [address] [place] [address], [place] [address] Aug, [facility] [address] [id number] [address] [place] [address], [place] [address] Aug, [facility] [address] [id number] [address] [place] [address], [place] [address] Aug, [facility] [address] [id number] [address] [place] [address], [place] [address] Aug, [facility] [address] [id number] [address] [place] [address], [place] [address] Jun, [facility] [address] [id number] [address] [place] [address], [place] [address] Jun, [facility] [address] [id number] [address] [place] [address], [place] [address] Jun, [facility] [address] [id number] [address] [place] [address], [place] [address] Jun, [facility] [address] [id number] [address] [place] [address], [place] [address] Jun, [facility] [address] [id number] [address] [place] [address], [place] [address] Jun, [facility] [address] [id number] [address] [place] [address], [place] [address] Jun, [facility] [address] [id number] [address] [place] [address], [place] [address] Jun, [facility] [address] [id number] [address] [place] [address], [place] [address] Jun, [facility] [address] [id number] [address] [place] [address], [place] [address] Jun, [facility] [address] [id number] [address] [place] [address], [place] [address] May, [facility] [address] [id number] [address] [place] [address], [place] [address] May, [facility] [address] [id number] [address] [place] [address], [place] [address] March, [facility] [address] [id number] [address] [place] [address], [place] [address] March, [facility] [address] [id number] [address] [place] [address], [place] [address] March, [facility] [address] [id number] [address] [place] [address], [place] [address] March, [facility] [address] [id number] [address] [place] [address], [place] [address] Feb, [facility] [address] [id number] [address] [place] [address], [place] [address] Feb, [facility] [address] [id number] [address] [place] [address], [place] [address] Jan, [facility] [address] [id number] [address] [place] [address], [place] [address] Jan, [facility] [address] [id number] [address] [place] [address], [place] [address] Jan, [facility] [address] [id number] [address] [place] [address], [place] [address] Jan, [facility] [address] [id number] [address] [place] [address], [place] [address] Dec, [facility] [address] [id number] [address] [place] [address], [place] [address] Dec, [facility] [address] [id number] [address] [place] [address], [place] [address] 14 Dec, 2013 [facility] [address] [id number] [address] [place] [address], [place] [address] 14 Dec, 2013 [facility] [address] [id number] [address] [place] [address], [place] [address] Dec, [facility] [address] [id number] [address] [place] [address], [place] [address] Dec, [facility] [address] [id number] [address] [place] [address], [place] [address] Nov, [facility] [address] [id number] [address] [place] [address], [place] [address] Nov, [facility] [address] [id number] [address] [place] [address], [place] [address] Nov, [facility] [address] [id number] [address] [place] [address], [place] [address] Nov, [facility] [address] [id number] [address] [place] [address], [place] [address] Nov, [facility] [address] [id number] [address] [place] [address], [place] [address] Nov, [facility] [address] [id number] [address] [place] [address], [place] [address] Nov, [facility] [address] [id number] [address] [place] [address], [place] [address] Nov, [facility] [address] [id number] [address] [place] [address], [place] [address] Nov, [facility] [address] [id number] [address] [place] [address], [place] [address] Nov, [facility] [address] [id number] [address] [place] [address], [place] [address] Nov, [facility] [address] [id number] [address] [place] [address], [place] [address] Nov, [facility] [address] [id number] [address] [place] [address], [place] [address] Oct, [facility] [address] [id number] [address] [place] [address], [place] [address] Oct, [facility] [address] [id number] [address] [place] [address], [place] [address] Oct, [facility] [address] [id number] [address] [place] [address], [place] [address] Oct, [facility] [address] [id number] [address] [place] [address], [place] [address] Sep, [facility] [address] [id number] [address] [place] [address], [place] [address] Sep, [facility] [address] [id number] [address] [place] [address], [place] [address] Sep, [facility] [address] [id number] [address] [place] [address], [place] [address] Sep, [facility] [address] [id number] [address] [place] [address], [place] [address] Sep, [facility] [address] [id number] [address] [place] [address], [place] [address] Sep, [facility] [address] [id number] [address] [place] [address], [place] [address] Sep, [facility] [address] [id number] [address] [place] [address], [place] [address] Sep, [facility] [address] [id number] [address] [place] [address], [place] [address] 30 Jul, 2013 [facility] [address] [id number] [address] [place] [address], [place] [address] 26 Jul, 2013 [facility] [address] [id number] [address] [place] [address], [place] [address] May, [facility] [address] [id number] [address] [place] [address], [place] [address] 26 Apr, 2013 [facility] [address] [id number] [address] [place] [address], [place] [address] 24 Apr, 2013 [facility] [address] [id number] [address] [place] [address], [place] [address] 20 Apr, 2013 [facility] [address] [id number] [address] [place] [address], [place] [address] Apr, [facility] [address] [id number] [address] [place] [address], [place] [address] Apr, [facility] [address] [id number] [address] [place] [address], [place] [address] Apr, [facility] [address] [id number] [address] [place] [address], [place] [address] Apr, [facility] [address] [id number] [address] [place] [address], [place] [address] March, [facility] [address] [id number] [address] [place] [address], [place] [address] March, [facility] [address] [id number] [address] [place] [address], [place] [address] Jan, [facility] [address] [id number] [address] [place] [address], [place] [address] Dec, [facility] [address] [id number] [address] [place] [address], [place] [address] Nov, [facility] [address] [id number] [address] [place] [address], [place] [address] Nov, [facility] [address] [id number] [address] [place] [address], [place] [address] Oct, [facility] [address] [id number] [address] [place] [address], [place] [address] Oct, [facility] [address] [id number] [address] [place] [address], [place] [address] Oct, [facility] [address] [id number] [address] [place] [address], [place] [address] Oct, [facility] [address] [id number] [address] [place] [address], [place] [address] Oct, [facility] [address] [id number] [address] [place] [address], [place] [address] Oct, [facility] [address] [id number] [address] [place] [address], [place] [address] Sep, [facility] [address] [id number] [address] [place] [address], [place] [address] Sep, [facility] [address] [id number] [address] [place] [address], [place] [address] Sep, [facility] [address] [id number] [address] [place] [address], [place] [address] Sep, [facility] [address] [id number] [address] [place] [address], [place] [address] Sep, [facility] [address] [id number] [address] [place] [address], [place] [address] Sep, [facility] [address] [id number] [address] [place] [address], [place] [address] Sep, [facility] [address] [id number] [address] [place] [address], [place] [address] Sep, [facility] [address] [id number] [address] [place] [address] Sep, [facility] [address] [id number] [address] [place] [address], [place] [address] Sep, [facility] [address] [id number] [address] [place] [address], [place] [address] Sep, [facility] [address] [id number] [address] [place] [address], [place] [address] Sep, [facility] [address] [id number] [address] [place] [address], [place] [address] Aug, [facility] [address] [id number] [address] [place] [address], [place] [address] Aug, [facility] [address] [id number] [address] [place] [address], [place] [address] Aug, [facility] [address] [id number] [address] [place] [address], [place] [address] Aug, [facility] [address] [id number] [address] [place] [address], [place] [address] Aug, [facility] [address] [id number] [address] [place] [address], [place] [address] Aug, [facility] [address] [id number] [address] [place] [address], [place] [address] Aug, [facility] [address] [id number] [address] [place] [address], [place] [address] Aug, [facility] [address] [id number] [address] [place] [address], [place] [address] Aug, [facility] [address] [id number] [address] [place] [address], [place] [address] Aug, [facility] [address] [id number] [address] [place] [address], [place] [address] Jul, [facility] [address] [id number] [address] [place] [address], [place] [address] Jul, [facility] [address] [id number] [address] [place] [address], [place] [address] Jun, [facility] [address] [id number] [address] [place] [address], [place] [address] Jun, [facility] [address] [id number] [address] [place] [address], [place] [address] Jun, [facility] [address] [id number] [address] [place] [address], [place] [address] May, [facility] [address] [id number] [address] [place] [address], [place] [address] May, [facility] [address] [id number] [address] [place] [address], [place] [address] May, [facility] [address] [id number] [address] [place] [address], [place] [address] May, [facility] [address] [id number] [address] [place] [address], [place] [address] Apr, [facility] [address] [id number] [address] [place] [address], [place] [address] Apr, [facility] [address] [id number] [address] [place] [address], [place] [address] Apr, [facility] [address] [id number] [address] [place] [address], [place] [address] Apr, [facility] [address] [id number] [address] [place] [address], [place] [address] March, [facility] [address] [id number] [address] [place] [address], [place] [address] Jan, [facility] [address] [id number] [address] [place] [address], [place] [address] Dec, [facility] [address] [id number] [address] [place] [address], [place] [address] Dec, [facility] [address] [id number] [address] [place] [address], [place] [address] Oct, [facility] [address] [id number] [address] [place] [address], [place] [address] Oct, [facility] [address] [id number] [address] [place] [address], [place] [address] Oct, [facility] [address] [id number] [address] [place] [address], [place] [address] Oct, [facility] [address] [id number] [address] [place] [id number] 15 Oct, 2011 [facility] [address] [id number] [address] [place] [id number] 15 Oct, 2011 [facility] [address] [id number] [address] [place] [id number] Oct, [facility] [address] [id number] [address] [place] [phone] Oct, [facility] [address] [id number] [address] [place] [id number] Sep, [facility] [address] [id number] [address] [place] [phone] Sep, [facility] [address] [id number] [address] [place] [phone] Sep, [facility] [address] [id number] [address] [place] [phone] Sep, [facility] [address] [id number] [address] [place] [phone] Aug, [facility] [address] [id number] [address] [place] [phone] Jul, IMMUNIZATIONS No Known Immunizations SOCIAL HISTORY Never Assessed REASON FOR VISIT urinary frequency. reports it feels as if someone is squeezing his bladder. david es dysuria. been like this for 2 days. ruth PLAN OF CARE Activity Details Follow Up prn Reason: VITAL SIGNS Height 74 in 2018-02-22 Weight 295.0 lbs 2018-02-22 Temperature 98.3 degrees Fahrenheit 2018-02-22 Heart Rate 90 bpm 2018-02-22 Respiratory Rate 20 2018-02-22 BMI 37.87 kg/m2 2018-02-22 Blood pressure systolic 126 mmHg 2018-02-22 Blood pressure diastolic 78 mmHg 2018-02-22 MEDICATIONS Medication Instructions Dosage Frequency Start Date End Date Duration S tatus Pyridium 200 MG Orally Three times a day 1 tablet after meals 8h Feb, Feb, 2 day(s) Active Naproxen 500 MG Orally every 12 hrs 1 tablet as needed 12h 06 Aug, 2 016 Active Depakote ER 500 mg Orally 2 times a day 2 tablets 12h Active Flonase 50 MCG/ACT Nasally 2 times a day for allergies 1 spray i n each nostril Jul, Active Clindamycin HCl 150 MG Orally 4 times a day 1 capsule 6h 24 Jan, 2018 Feb, 10 days Active Keppra XR 500 MG Orally Once a day 2 tablets 24h 30 days Not-Taking EPINEPHrine 0.3 MG/0.3ML Injection 1 time as needed 0.3 mg IM Active Pseudoephedrine HCl 60 mg Orally every 4-6 hrs PRN 1 tablet as need ed Nov, Active RESULTS Name Result Date Reference Range UA LONG DIP (IN HOUSE) 2018-02-22 Lot # [id number] Exp date 2017 10 31 Clarity clear Color yellow Odor none GLU negative KIM negative KET trace SG 1.025 BLO negative pH 5.5 Protein negative URO 0.2 NIT negative CARMEN negative Lot # [id number] Exp date February 2018 PROCEDURES Procedure Date Ordered Result Body Site URINALYSIS, AUTO, W/O SCOPE February 22, 2018 INSTRUCTIONS MEDICATIONS ADMINISTERED No Known Medications MEDICAL (GENERAL) HISTORY Type Description Date Medical History seizures Medical History allergic rhinitis Medical History mood disorder Medical History back pain
--- OUTSIDE RECORDS SUMMARY | 2020-02-03 17:11 | XMS REPORT ---
Author Author Derek WADDELL [facility] IN [facility] Address [address] [place] [address] Care Team Providers Care Dobby Looms Pegger Name Role Phone WADDELLQUENTIN Unavailable PROBLEMS Type Condition ICD9-CM Code [id number] Code Onset Dates Condition S tatus SNOMED Code Problem Anxiety F41.9 Active 45407213 Problem Seasonal allergic rhinitis due to other allergic trigger J30.89 Active 097074464 Problem Bladder spasms N32.89 Active 11101 7006 ALLERGIES Substance Reaction Event Type Date Status Sulfamethoxazole-TMP DS other Drug Allergy Feb, Acti ve Cephalexin rash Drug Allergy Feb, Active Amoxicillin Unknown Drug Allergy Feb, Active ENCOUNTERS Encounter Location Date Diagnosis [place] [address] [place] [id number] [place] [address] March, Elevated liver enzymes R74.8 and Abnormal CBC R79.89 [place] [address] [address] March, Encounter for immunization Z 23 [place] [address] [place] [id number] [place] [address] March[place] [address] [place] [id number] [place] [address] March, [place] [address] [place] [id number] [place] [address] March, Elevated liver enzymes R74.8 and Abnormal CBC R79.89 [place] [address] [place] [id number] [place] [address] March, Anxiety F41.9 ; Bronchitis J 40 and Seasonal allergic rhinitis due to other allergic trigger J30.89 [place] [address] [address] March, [facility] [address] [address] Feb, [facility] [address] [address] Feb, Pharyngitis due to other org anism J02.8 [facility] [address] [address] Feb, Pharyngitis due to other org anism J02.8 [facility] [address] [address] Feb, Sore throat J02.9 ; Fatigue, unspecified type R53.83 and Strep pharyngitis J02.[address] [facility] [address] [address] Feb, Acute nasopharyngitis J00 [facility] [address] [address] Feb, Lower abdominal pain R10.30 [facility] [address] [address] Feb, Bladder spasms N32.89 and Ur inary frequency R35.0 [facility] [address] [address] Jan, Strep throat J02.0 [facility] [address] [address] Dec, Seasonal allergic rhinitis, unspecified trigger J30.2 [facility] [address] [address] Nov, Acute suppurative otitis med ia of both ears without spontaneous rupture of tympanic membranes, recurrence not specified H66.003 [facility] [address] [address] Nov, Acute suppurative otitis med ia of both ears without spontaneous rupture of tympanic membranes, recurrence not specified H66.003 [facility] [place] [address] [address] Nov, Acute suppurative otitis med ia of both ears without spontaneous rupture of tympanic membranes, recurrence not specified H66.003 [place] [address] [address] Oct, [place] [address] [address] 21 Jul, 2017 Seizures R56.[address] [address] 14 Jul, 2017 Seizures R56.9 ; Other chron ic pain G89.29 ; Pain in left ankle and joints of left foot M25.572 and Allergic rhinitis, unspecified allergic rhinitis trigger, unspecified rhinitis seasonality J30.9 [facility] [address] [address] 07 Jul, 2017 Acute seasonal allergic rhin itis due to other allergen J30.89 [facility] [address] [address] Jun, Left foot pain M79.672 and L eft lateral ankle pain M25.[address] [address] Aug, Allergic rhinitis, unspecifi ed allergic rhinitis trigger, unspecified rhinitis seasonality J30.9 ; Low back pain M54.5 and Other chronic pain G89.29 [facility] [address] [address] Jul, [facility] [address] [address] 12 Jul, 2016 Low back pain M54.5 and Othe r chronic pain G89.29 [facility] [address] [address] Jul, Acute maxillary sinusitis, r ecurrence not specified J01.00 [facility] [place] [address] [address] Jun, Cellulitis of left lower ext remity L03.116 [facility] [place] [address] [address] Apr, Wrist pain, left M25.532 [facility] [place] [address] [address] March, Low back pain M54.5 ; Fever, unspecified R50.9 and Strep pharyngitis J02.0 [facility] [place] [address] [address] March, Hordeolum externum of left u pper eyelid H00.014 and Acute follicular conjunctivitis of left eye H10.012 [place] [address] [address] Jan, Folliculitis L73.9 [facility] [place] [address] [address] Jan, Screen for sexually transmit yayo diseases Z11.3 [place] [address] [address] Nov, [place] [address] [address] Nov, Gen idiopathic epilepsy, not intractable, 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 [facility] [place] [address] [address] Nov, Malaise R53.81 ; Upper respi ratory infection J06.9 and Pharyngitis J02.9 [facility] [place] [address] [address] Nov, Acute pharyngitis, unspecifi ed J02.9 ; Acute upper respiratory infection, unspecified J06.9 ; Other viral agents as the cause of diseases classified elsewhere B97.89 and Allergic rhinitis J30.9 [facility] [address] [id number] [address] [place] [address] 04 Oct, 2015 Testicular pain N50.8 [facility] [address] [id number] [address] [place] [address] 15 Jul, 2015 Sinusitis 473.9 [facility] [address] [id number] [address] [place] [address] 12 Apr, 2015 Back pain 724.5 [facility] [address] [id number] [address] [place] [address] 11 Apr, 2015 [facility] [address] [id number] [address] [place] [address] Feb, [facility] [address] [id number] [address] [place] [address] Feb, [facility] [address] [id number] [address] [place] [address] Jan, [facility] [address] [facility] [id number] [address] [place] [address] Nov, [facility] [address] [facility] [id number] [address] [place] [address] Nov, [facility] [address] [id number] [address] [place] [address] Nov, [facility] [address] [id number] [address] [place] [address] Nov, [facility] [address] [id number] [address] [place] [address] Oct, [facility] [address] [facility] [id number] [address] [place] [address] Oct, [facility] [address] [id number] [address] [place] [address] Aug, [facility] [address] [id number] [address] [place] [address], [place] [address] Aug, [facility] [address] [id number] [address] [address], [place] [address] Aug, [facility] [address] [id number] [address] [address], [place] [address] Aug, [facility] [address] [id number] [address] [address], [place] [address] Aug, [facility] [address] [id number] [address] [address], [place] [address] Aug, [facility] [address] [id number] [address] [address], [place] [address] Aug, [facility] [address] [id number] [address] [address], [place] [address] Aug, [facility] [address] [id number] [address] [address], [place] [address] Jun, [facility] [address] [id number] [address] [address], [place] [address] Jun, [facility] [address] [id number] [address] [address], [place] [address] Jun, [facility] [address] [id number] [address] [address], [place] [address] Jun, [facility] [address] [id number] [address] [address], [place] [address] Jun, [facility] [address] [id number] [address] [address], [place] [address] Jun, [facility] [address] [id number] [address] [address], [place] [address] Jun, [facility] [address] [id number] [address] [address], [place] [address] Jun, [facility] [address] [id number] [address] [address], [place] [address] Jun, [facility] [address] [id number] [address] [address], [place] [address] Jun, [facility] [address] [id number] [address] [address], [place] [address] May, [facility] [address] [id number] [address] [address], [place] [address] May, [facility] [address] [id number] [address] [address], [place] [address] March, [facility] [address] [id number] [address] [place] [address], [place] [address] March, [facility] [address] [id number] [address] [place] [address], [place] [address] March, [facility] [address] [id number] [address] [address], [place] [address] March, [facility] [address] [id number] [address] [address], [place] [address] Feb, [facility] [address] [id number] [address] [place] [address], [place] [address] Feb, [facility] [address] [id number] [address] [address], [place] [address] Jan, [facility] [address] [id number] [address] [address], [place] [address] Jan, [facility] [address] [id number] [address] [place] [address], [place] [address] Jan, [facility] [address] [id number] [address] [place] [address], [place] [address] Jan, [facility] [address] [id number] [address] [place] [address], [place] [address] Dec, [facility] [address] [id number] [address] [address], [place] [address] 18 Dec, 2013 [facility] [address] [id number] [facility] [place] [address] 14 Dec, 2013 [facility] [address] [id number] [address] [address], [place] [address] 14 Dec, 2013 [facility] [address] [id number] [facility] [place] [address] Dec, [facility] [address] [id number] [address] [place] [address], [place] [address] Dec, [facility] [address] [id number] [address] [address], [place] [address] Nov, [facility] [address] [id number] [address] [address], [place] [address] Nov, [facility] [address] [id number] [address] [place] [address], [place] [address] Nov, [facility] [address] [id number] [address] [address], [place] [address] Nov, [facility] [address] [id number] [address] [place] [address], [place] [address] Nov, [facility] [address] [id number] [address] [place] [address], [place] [address] Nov, [facility] [address] [id number] [address] [place] [address], [place] [address] Nov, [facility] [address] [id number] [address] [place] [address], [place] [address] Nov, [facility] [address] [id number] [address] [address], [place] [address] Nov, [facility] [address] [id number] [address] [place] [address], [place] [address] Nov, [facility] [address] [id number] [address] [place] [address], [place] [address] Nov, [facility] [address] [id number] [address] [place] [address], [place] [address] Nov, [facility] [address] [id number] [address] [place] [address], [place] [address] Oct, [facility] [address] [id number] [address] [place] [address], [place] [address] Oct, [facility] [address] [id number] [address] [place] [address], [place] [address] Oct, [facility] [address] [id number] [address] [place] [address], [place] [address] Oct, [facility] [address] [id number] [address] [place] [address], [place] [address] Sep, [facility] [address] [id number] [address] [place] [address], [place] [address] Sep, [facility] [address] [id number] [address] [place] [address], [place] [address] Sep, [facility] [address] [id number] [address] [place] [address], [place] [address] Sep, [facility] [address] [id number] [address] [place] [address], [place] [address] Sep, [facility] [address] [id number] [address] [place] [address], [place] [address] Sep, [facility] [address] [id number] [address] [place] [address], [place] [address] Sep, [facility] [address] [id number] [address] [place] [address], [place] [address] Sep, [facility] [address] [id number] [address] [address], [place] [address] 30 Jul, 2013 [facility] [address] [id number] [address] [address], [place] [address] 26 Jul, 2013 [facility] [address] [id number] [address] [place] [address], [place] [address] May, [facility] [address] [id number] [address] [place] [address], [place] [address] Apr, [facility] [address] [id number] [address] [place] [address], [place] [address] 24 Apr, 2013 [facility] [address] [id number] [address] [place] [address], [place] [address] Apr, [facility] [address] [id number] [address] [place] [address], [place] [address] Apr, [facility] [address] [id number] [address] [place] [address], [place] [address] Apr, [facility] [address] [id number] [address] [place] [address], [place] [address] Apr, [facility] [address] [id number] [address] [address], [place] [address] Apr, [facility] [address] [id number] [address] [address], [place] [address] March, [facility] [address] [id number] [address] [address], [place] [address] March, [facility] [address] [id number] [address] [place] [address], [place] [address] Jan, [facility] [address] [id number] [address] [place] [address], [place] [address] Dec, [facility] [address] [id number] [address] [place] [address], [place] [address] Nov, [facility] [address] [id number] [address] [address], [place] [address] Nov, [facility] [address] [id number] [address] [address], [place] [address] Oct, [facility] [address] [id number] [address] [address], [place] [address] Oct, [facility] [address] [id number] [address] [address], [place] [address] Oct, [facility] [address] [id number] [address] [address], [place] [address] Oct, [facility] [address] [id number] [address] [address], [place] [address] Oct, [facility] [address] [id number] [address] [place] [address], [place] [address] Oct, [facility] [address] [id number] [address] [address], [place] [address] Sep, [facility] [address] [id number] [address] [place] [address], [place] [address] Sep, [facility] [address] [id number] [address] [address], [place] [address] Sep, [facility] [address] [id number] [address] [address], [place] [address] Sep, [facility] [address] [id number] [address] [address], [place] [address] Sep, [facility] [address] [id number] [address] [address], [place] [address] Sep, [facility] [address] [id number] [address] [address], [place] [address] Sep, [facility] [address] [id number] [address] [address], [place] [address] Sep, [facility] [address] [id number] [address] [address], [place] [address] Sep, [facility] [address] [id number] [address] [address], [place] [address] Sep, [facility] [address] [id number] [address] [address], [place] [address] Sep, [facility] [address] [id number] [address] [address], [place] [address] Sep, [facility] [address] [id number] [address] [address], [place] [address] Aug, [facility] [address] [id number] [address] [address], [place] [address] Aug, [facility] [address] [id number] [address] [place] [address], [place] [address] Aug, [facility] [address] [id number] [address] [place] [address], [place] [address] Aug, [facility] [address] [id number] [address] [place] [address], [place] [address] Aug, [facility] [address] [id number] [address] [place] [address], [place] [address] Aug, [facility] [address] [id number] [address] [place] [address], [place] [address] Aug, [facility] [address] [id number] [address] [place] [address], [place] [address] Aug, [facility] [address] [id number] [address] [place] [address], [place] [address] Aug, [facility] [address] [id number] [address] [place] [address], [place] [address] Aug, [facility] [address] [id number] [address] [address], [place] [address] 24 Jul, 2012 [facility] [address] [id number] [address] [address], [place] [address] Jul, [facility] [address] [id number] [address] [address], [place] [address] Jun, [facility] [address] [id number] [address] [address], [place] [address] Jun, [facility] [address] [id number] [address] [address], [place] [address] Jun, [facility] [address] [id number] [address] [place] [address], [place] [address] May, [facility] [address] [id number] [address] [place] [address], [place] [address] May, [facility] [address] [id number] [address] [address], [place] [address] May, [facility] [address] [id number] [address] [address], [place] [address] May, [facility] [address] [id number] [address] [address], [place] [address] Apr, [facility] [address] [id number] [address] [address], [place] [address] Apr, [facility] [address] [id number] [address] [address], [place] [address] Apr, [facility] [address] [id number] [address] [address], [place] [address] Apr, [facility] [address] [id number] [address] [address], [place] [address] March, [facility] [address] [id number] [address] [address], [place] [address] Jan, [facility] [address] [id number] [address] [address], [place] [address] Dec, [facility] [address] [id number] [address] [address], [place] [address] Dec, [facility] [address] [id number] [address] [address], [place] [address] Oct, [facility] [address] [id number] [address] [address], [place] [address] Oct, [facility] [address] [id number] [address] [address], [place] [address] Oct, [facility] [address] [id number] [address] [place] [address], [place] [address] Oct, [facility] [address] [id number] [address] [place] [id number] 15 Oct, 2011 [facility] [address] [id number] [address] [place] [id number] 15 Oct, 2011 [facility] [address] [id number] [address] [place] [id number] Oct, [facility] [address] [id number] [address] [place] [id number] Oct, [facility] [address] [id number] [address] [place] [id number] Sep, [facility] [address] [id number] [address] [place] [id number] Sep, [facility] [address] [id number] [address] [place] [phone] Sep, [facility] [address] [id number] [address] [place] [phone] Sep, [facility] [address] [id number] [address] [place] [phone] Aug, [facility] [address] [id number] [address] [place] [phone] Jul, IMMUNIZATIONS No Known Immunizations SOCIAL HISTORY Never Assessed REASON FOR VISIT Sinus Infection JStrasserRN PLAN OF CARE Activity Details Follow Up prn Reason: VITAL SIGNS Height 74 in 2018-02-27 Weight 296 lbs 2018-02-27 Temperature 97.9 degrees Fahrenheit 2018-02-27 Heart Rate 92 bpm 2018-02-27 Respiratory Rate 20 2018-02-27 BMI 38.00 kg/m2 2018-02-27 Blood pressure systolic 128 mmHg 2018-02-27 Blood pressure diastolic 90 mmHg 2018-02-27 MEDICATIONS Medication Instructions Dosage Frequency Start Date End Date Duration S tatus Keppra XR 500 MG Orally Once a day 2 tablets 24h 30 days Not-Taking EPINEPHrine 0.3 MG/0.3ML Injection 1 time as needed 0.3 mg IM Active Depakote ER 500 mg Orally 2 times a day 2 tablets 12h Active Naproxen 500 MG Orally every 12 hrs 1 tablet as needed 12h 06 Aug, 2 016 Active Pseudoephedrine HCl 60 mg Orally every 4-6 hrs PRN 1 tablet as need ed Nov, Active Flonase 50 MCG/ACT Nasally 2 times a day for allergies 1 spray i n each nostril Jul, Active RESULTS No Results PROCEDURES No Known procedures INSTRUCTIONS MEDICATIONS ADMINISTERED No Known Medications MEDICAL (GENERAL) HISTORY Type Description Date Medical History seizures Medical History allergic rhinitis Medical History mood disorder Medical History back pain
--- OUTSIDE RECORDS SUMMARY | 2020-02-03 17:11 | XMS REPORT ---
Author Author Derek WADDELL [facility] Address [address] [place] [address] Care Team Providers Care Chief Librarian Circulation Department Name Role Phone WADDELLQUENTIN Unavailable PROBLEMS Type Condition ICD9-CM Code LAK72-RN Code Onset Dates Condition S tatus SNOMED Code Problem Anxiety F41.9 Active 97030193 Problem Seasonal allergic rhinitis due to other allergic trigger J30.89 Active 744648600 Problem Bladder spasms N32.89 Active 10645 7006 ALLERGIES Substance Reaction Event Type Date Status Sulfamethoxazole-TMP DS other Drug Allergy Feb, Acti ve Cephalexin rash Drug Allergy Feb, Active Amoxicillin Unknown Drug Allergy Feb, Active ENCOUNTERS Encounter Location Date Diagnosis [place] [address] [place] [id number] [place] [address] March, Elevated liver enzymes R74.8 and Abnormal CBC R79.89 [place] [address] [address] March, Encounter for immunization Z 23 [place] [address] [place] [id number] [place] [address] March, [place] [address] [place] [id number] [place] [address] March, [place] [address] [place] [id number] [place] [address] March, Elevated liver enzymes R74.8 and Abnormal CBC R79.89 [place] [address] [place] [id number] [place] [address] March, Anxiety F41.9 ; Bronchitis J 40 and Seasonal allergic rhinitis due to other allergic trigger J30.89 [place] [address] [address] March, [facility] [address] [address] Feb, [facility] [address] [address] Feb, Pharyngitis due to other org anism J02.8 [facility] [address] [address] Feb, Pharyngitis due to other org anism J02.8 [facility] [address] [address] Feb, Sore throat J02.9 ; Fatigue, unspecified type R53.83 and Strep pharyngitis J02.0 [facility] [address] [address] Feb, Acute nasopharyngitis J00 [facility] [address] [address] Feb, Lower abdominal pain R10.30 [facility] [address] [address] Feb, Bladder spasms N32.89 and Ur inary frequency R35.0 [facility] [address] [address] Jan, Strep throat J02.0 [facility] [address] [address] Dec, Seasonal allergic rhinitis, unspecified trigger J30.2 [facility] [address] [address] Nov, Acute suppurative otitis med ia of both ears without spontaneous rupture of tympanic membranes, recurrence not specified H66.003 [facility] [address] [address] Nov, Acute suppurative otitis med ia of both ears without spontaneous rupture of tympanic membranes, recurrence not specified H66.003 [facility] [place] [address] [address] Nov, Acute suppurative otitis med ia of both ears without spontaneous rupture of tympanic membranes, recurrence not specified H66.003 [place] [address] [address] Oct, [place] [address] [address] 21 Jul, 2017 Seizures R56.[address] [address] 14 Jul, 2017 Seizures R56.9 ; Other chron ic pain G89.29 ; Pain in left ankle and joints of left foot M25.572 and Allergic rhinitis, unspecified allergic rhinitis trigger, unspecified rhinitis seasonality J30.9 [facility] IN [address] [address] 07 Jul, 2017 Acute seasonal allergic rhin itis due to other allergen J30.89 [facility] IN [address] [address] Jun, Left foot pain M79.672 and L eft lateral ankle pain M25.[address] [address] Aug, Allergic rhinitis, unspecifi ed allergic rhinitis trigger, unspecified rhinitis seasonality J30.9 ; Low back pain M54.5 and Other chronic pain G89.29 [facility] [address] [address] Jul, [facility] [address] [address] 12 Jul, 2016 Low back pain M54.5 and Othe r chronic pain G89.29 [facility] [address] [address] Jul, Acute maxillary sinusitis, r ecurrence not specified J01.00 [facility] [place] [address] [address] Jun, Cellulitis of left lower ext remity L03.116 [facility] [place] [address] [address] Apr, Wrist pain, left M25.532 [facility] [place] [address] [address] March, Low back pain M54.5 ; Fever, unspecified R50.9 and Strep pharyngitis J02.0 [facility] [place] [address] [address] March, Hordeolum externum of left u pper eyelid H00.014 and Acute follicular conjunctivitis of left eye H10.012 [place] [address] [address] Jan, Folliculitis L73.9 [facility] [place] [address] [address] Jan, Screen for sexually transmit yayo diseases Z11.3 [place] [address] [address] Nov, [place] [address] [address] Nov, Gen idiopathic epilepsy, not intractable, 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 [facility] [place] [address] [address] Nov, Malaise R53.81 ; Upper respi ratory infection J06.9 and Pharyngitis J02.9 [facility] [place] [address] [address] Nov, Acute pharyngitis, unspecifi ed J02.9 ; Acute upper respiratory infection, unspecified J06.9 ; Other viral agents as the cause of diseases classified elsewhere B97.89 and Allergic rhinitis J30.9 [facility] [address] [id number] [address] [place] [address] 04 Oct, 2015 Testicular pain N50.8 [facility] [address] [id number] [address] [place] [address] 15 Jul, 2015 Sinusitis 473.9 [facility] [address] [id number] [address] [place] [address] 12 Apr, 2015 Back pain 724.5 [facility] [address] [id number] [address] [place] [address] 11 Apr, 2015 [facility] [address] [id number] [address] [place] [address] Feb, [facility] [address] [id number] [address] [place] [address] Feb, [facility] [address] [id number] [address] [place] [address] Jan, [facility] [address] [facility] [id number] [address] [place] [address] Nov, [facility] [address] [facility] [id number] [address] [place] [address] Nov, [facility] [address] [id number] [address] [place] [address] Nov, [facility] [address] [id number] [address] [place] [address] Nov, [facility] [address] [id number] [address] [place] [address] Oct, [facility] [address] [facility] [id number] [address] [place] [address] Oct, [facility] [address] [id number] [address] [place] [address] Aug, [facility] [address] [id number] [address] [place] [address], [place] [address] Aug, [facility] [address] [id number] [address] [place] [address], [place] [address] Aug, [facility] [address] [id number] [address] [place] [address], [place] [address] Aug, [facility] [address] [id number] [address] [place] [address], [place] [address] Aug, [facility] [address] [id number] [address] [place] [address], [place] [address] Aug, [facility] [address] [id number] [address] [place] [address], [place] [address] Aug, [facility] [address] [id number] [address] [place] [address], [place] [address] Aug, [facility] [address] [id number] [address] [place] [address], [place] [address] Jun, [facility] [address] [id number] [address] [place] [address], [place] [address] Jun, [facility] [address] [id number] [address] [place] [address], [place] [address] Jun, [facility] [address] [id number] [address] [place] [address], [place] [address] Jun, [facility] [address] [id number] [address] [place] [address], [place] [address] Jun, [facility] [address] [id number] [address] [place] [address], [place] [address] Jun, [facility] [address] [id number] [address] [place] [address], [place] [address] Jun, [facility] [address] [id number] [address] [place] [address], [place] [address] Jun, [facility] [address] [id number] [address] [place] [address], [place] [address] Jun, [facility] [address] [id number] [address] [place] [address], [place] [address] Jun, [facility] [address] [id number] [address] [place] [address], [place] [address] May, [facility] [address] [id number] [address] [place] [address], [place] [address] May, [facility] [address] [id number] [address] [place] [address], [place] [address] March, [facility] [address] [id number] [address] [place] [address], [place] [address] March, [facility] [address] [id number] [address] [place] [address], [place] [address] March, [facility] [address] [id number] [address] [place] [address], [place] [address] March, [facility] [address] [id number] [address] [place] [address], [place] [address] Feb, [facility] [address] [id number] [address] [place] [address], [place] [address] Feb, [facility] [address] [id number] [address] [place] [address], [place] [address] Jan, [facility] [address] [id number] [address] [place] [address], [place] [address] Jan, [facility] [address] [id number] [address] [place] [address], [place] [address] Jan, [facility] [address] [id number] [address] [place] [address], [place] [address] Jan, [facility] [address] [id number] [address] [place] [address], [place] [address] Dec, [facility] [address] [id number] [address] [place] [address], [place] [address] 18 Dec, 2013 [facility] [address] [id number] [facility] [place] [address] 14 Dec, 2013 [facility] [address] [id number] [address] [place] [address], [place] [address] 14 Dec, 2013 [facility] [address] [id number] [facility] [place] [address] Dec, [facility] [address] [id number] [address] [place] [address], [place] [address] Dec, [facility] [address] [id number] [address] [place] [address], [place] [address] Nov, [facility] [address] [id number] [address] [place] [address], [place] [address] Nov, [facility] [address] [id number] [address] [place] [address], [place] [address] Nov, [facility] [address] [id number] [address] [place] [address], [place] [address] Nov, [facility] [address] [id number] [address] [place] [address], [place] [address] Nov, [facility] [address] [id number] [address] [place] [address], [place] [address] Nov, [facility] [address] [id number] [address] [place] [address], [place] [address] Nov, [facility] [address] [id number] [address] [place] [address], [place] [address] Nov, [facility] [address] [id number] [address] [place] [address], [place] [address] Nov, [facility] [address] [id number] [address] [place] [address], [place] [address] Nov, [facility] [address] [id number] [address] [place] [address], [place] [address] Nov, [facility] [address] [id number] [address] [place] [address], [place] [address] Nov, [facility] [address] [id number] [address] [place] [address], [place] [address] Oct, [facility] [address] [id number] [address] [place] [address], [place] [address] Oct, [facility] [address] [id number] [address] [place] [address], [place] [address] Oct, [facility] [address] [id number] [address] [place] [address], [place] [address] Oct, [facility] [address] [id number] [address] [place] [address], [place] [address] Sep, [facility] [address] [id number] [address] [place] [address], [place] [address] Sep, [facility] [address] [id number] [address] [place] [address], [place] [address] Sep, [facility] [address] [id number] [address] [place] [address], [place] [address] Sep, [facility] [address] [id number] [address] [place] [address], [place] [address] Sep, [facility] [address] [id number] [address] [place] [address], [place] [address] Sep, [facility] [address] [id number] [address] [place] [address], [place] [address] Sep, [facility] [address] [id number] [address] [place] [address], [place] [address] Sep, [facility] [address] [id number] [address] [place] [address], [place] [address] 30 Jul, 2013 [facility] [address] [id number] [address] [place] [address], [place] [address] 26 Jul, 2013 [facility] [address] [id number] [address] [place] [address], [place] [address] May, [facility] [address] [id number] [address] [place] [address], [place] [address] Apr, [facility] [address] [id number] [address] [place] [address], [place] [address] 24 Apr, 2013 [facility] [address] [id number] [address] [place] [address], [place] [address] Apr, [facility] [address] [id number] [address] [place] [address], [place] [address] Apr, [facility] [address] [id number] [address] [place] [address], [place] [address] Apr, [facility] [address] [id number] [address] [place] [address], [place] [address] Apr, [facility] [address] [id number] [address] [place] [address], [place] [address] Apr, [facility] [address] [id number] [address] [place] [address], [place] [address] March, [facility] [address] [id number] [address] [place] [address], [place] [address] March, [facility] [address] [id number] [address] [place] [address], [place] [address] Jan, [facility] [address] [id number] [address] [place] [address], [place] [address] Dec, [facility] [address] [id number] [address] [place] [address], [place] [address] Nov, [facility] [address] [id number] [address] [place] [address], [place] [address] Nov, [facility] [address] [id number] [address] [place] [address], [place] [address] Oct, [facility] [address] [id number] [address] [place] [address], [place] [address] Oct, [facility] [address] [id number] [address] [place] [address], [place] [address] Oct, [facility] [address] [id number] [address] [place] [address], [place] [address] Oct, [facility] [address] [id number] [address] [place] [address], [place] [address] Oct, [facility] [address] [id number] [address] [place] [address], [place] [address] Oct, [facility] [address] [id number] [address] [place] [address], [place] [address] Sep, [facility] [address] [id number] [address] [place] [address], [place] [address] Sep, [facility] [address] [id number] [address] [place] [address], [place] [address] Sep, [facility] [address] [id number] [address] [place] [address], [place] [address] Sep, [facility] [address] [id number] [address] [place] [address], [place] [address] Sep, [facility] [address] [id number] [address] [place] [address], [place] [address] Sep, [facility] [address] [id number] [address] [place] [address], [place] [address] Sep, [facility] [address] [id number] [address] [place] [address], [place] [address] Sep, [facility] [address] [id number] [address] [place] [address], [place] [address] Sep, [facility] [address] [id number] [address] [place] [address], [place] [address] Sep, [facility] [address] [id number] [address] [place] [address], [place] [address] Sep, [facility] [address] [id number] [address] [place] [address], [place] [address] Sep, [facility] [address] [id number] [address] [place] [address], [place] [address] Aug, [facility] [address] [id number] [address] [place] [address], [place] [address] Aug, [facility] [address] [id number] [address] [place] [address], [place] [address] Aug, [facility] [address] [id number] [address] [place] [address], [place] [address] Aug, [facility] [address] [id number] [address] [place] [address], [place] [address] Aug, [facility] [address] [id number] [address] [place] [address], [place] [address] Aug, [facility] [address] [id number] [address] [place] [address], [place] [address] Aug, [facility] [address] [id number] [address] [place] [address], [place] [address] Aug, [facility] [address] [id number] [address] [place] [address], [place] [address] Aug, [facility] [address] [id number] [address] [place] [address], [place] [address] Aug, [facility] [address] [id number] [address] [place] [address], [place] [address] 24 Jul, 2012 [facility] [address] [id number] [address] [place] [address], [place] [address] Jul, [facility] [address] [id number] [address] [place] [address], [place] [address] Jun, [facility] [address] [id number] [address] [place] [address], [place] [address] Jun, [facility] [address] [id number] [address] [place] [address], [place] [address] Jun, [facility] [address] [id number] [address] [place] [address], [place] [address] May, [facility] [address] [id number] [address] [place] [address], [place] [address] May, [facility] [address] [id number] [address] [place] [address], [place] [address] May, [facility] [address] [id number] [address] [place] [address], [place] [address] May, [facility] [address] [id number] [address] [place] [address], [place] [address] Apr, [facility] [address] [id number] [address] [place] [address], [place] [address] Apr, [facility] [address] [id number] [address] [place] [address], [place] [address] Apr, [facility] [address] [id number] [address] [place] [address], [place] [address] Apr, [facility] [address] [id number] [address] [place] [address], [place] [address] March, [facility] [address] [id number] [address] [place] [address], [place] [address] Jan, [facility] [address] [id number] [address] [place] [address], [place] [address] Dec, [facility] [address] [id number] [address] [place] [address], [place] [address] Dec, [facility] [address] [id number] [address] [place] [address], [place] [address] Oct, [facility] [address] [id number] [address] [place] [address], [place] [address] Oct, [facility] [address] [id number] [address] [place] [address], [place] [address] Oct, [facility] [address] [id number] [address] [place] [address], [place] [address] Oct, [facility] [address] [id number] [address] [place] [id number] 15 Oct, 2011 [facility] [address] [id number] [address] [place] [id number] 15 Oct, 2011 [facility] [address] [id number] [address] [place] [id number] Oct, [facility] [address] [id number] [address] [place] [id number] Oct, [facility] [address] [id number] [address] [place] [id number] Sep, [facility] [address] [id number] [address] [place] [id number] Sep, [facility] [address] [id number] [address] [place] [id number] Sep, [facility] [address] [id number] [address] [place] [id number] Sep, [facility] [address] [id number] [address] [place] [id number] Aug, [facility] [address] [id number] [address] [place] [id number] Jul, IMMUNIZATIONS No Known Immunizations SOCIAL HISTORY Never Assessed REASON FOR VISIT Pain between stomach and bladder JStrasserRN PLAN OF CARE Activity Details Follow Up prn Reason: VITAL SIGNS Height 74 in 2018-02-24 Weight 293 lbs 2018-02-24 Temperature 96.9 degrees Fahrenheit 2018-02-24 Heart Rate 92 bpm 2018-02-24 Respiratory Rate 20 2018-02-24 BMI 37.61 kg/m2 2018-02-24 Blood pressure systolic 110 mmHg 2018-02-24 Blood pressure diastolic 80 mmHg 2018-02-24 MEDICATIONS Medication Instructions Dosage Frequency Start Date End Date Duration S tatus Naproxen 500 MG Orally every 12 hrs 1 tablet as needed 12h 06 Aug, 2 016 Active Keppra XR 500 MG Orally Once a day 2 tablets 24h 30 days Not-Taking Pyridium 200 MG Orally Three times a day 1 tablet after meals 8h Feb, Feb, 2 day(s) Active Flonase 50 MCG/ACT Nasally 2 times a day for allergies 1 spray i n each nostril Jul, Active Pseudoephedrine HCl 60 mg Orally every 4-6 hrs PRN 1 tablet as need ed Nov, Active EPINEPHrine 0.3 MG/0.3ML Injection 1 time as needed 0.3 mg IM Active Depakote ER 500 mg Orally 2 times a day 2 tablets 12h Active RESULTS No Results PROCEDURES No Known procedures INSTRUCTIONS MEDICATIONS ADMINISTERED No Known Medications MEDICAL (GENERAL) HISTORY Type Description Date Medical History seizures Medical History allergic rhinitis Medical History mood disorder Medical History back pain
--- OUTSIDE RECORDS SUMMARY | 2020-02-03 17:12 | XMS REPORT ---
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 Name Role Phone YANET Hedrick Unavailable PROBLEMS Type Condition ICD9-CM Code [id number] Code Onset Dates Condition S tatus SNOMED Code Problem Anxiety F41.9 Active 96977885 Problem Seasonal allergic rhinitis due to other allergic trigger J30.89 Active 872830075 Problem Bladder spasms N32.89 Active 67084 7006 ALLERGIES Substance Reaction Event Type Date Status Sulfamethoxazole-TMP DS other Drug Allergy Nov, Acti ve Cephalexin rash Drug Allergy Nov, Active Aspirin dizziness Drug Allergy Nov, Active Amoxicillin Unknown Drug Allergy Nov, Active ENCOUNTERS Encounter Location Date Diagnosis [place] [address] [id number] [place] [address] May, [place] [address] [address] [place] [id number] [address] [place] [address] March, Elevated liver enzymes R74.8 and Abnormal CBC R79.89 [place] [address] [address] [place] [id number] [address] [place] [address] March, Encounter for immunization Z 23 [facility] [address] [facility] [id number] [address] [place] [address] March, [place] [address] [address] [place] [id number] [address] [place] [address] March, [place] [address] [address] [place] [id number] [address] [place] [address] March, Elevated liver enzymes R74.8 and Abnormal CBC R79.89 [place] [address] [address] [place] [id number] [address] [place] [address] March, Anxiety F41.9 ; Bronchitis J 40 and Seasonal allergic rhinitis due to other allergic trigger J30.89 [facility] [address] [place] [id number] [address] [place] [address] March, [facility] [address] [facility] [id number] [address] [place] [address] Feb, [facility] [address] [place] [id number] [place] [address] Feb, Pharyngitis due to other org anism J02.8 [place] [address] [address] [facility] [id number] [address] [place] [address] Feb, Pharyngitis due to other org anism J02.8 [facility] [address] [place] [id number] [address] [place] [address] Feb, Sore throat J02.9 ; Fatigue, unspecified type R53.83 and Strep pharyngitis J02.0 [facility] [address] [place] [id number] [address] [place] [address] Feb, Acute nasopharyngitis J00 [facility] [address] [place] [id number] [place] [address] Feb, Lower abdominal pain R10.30 [facility] [address] [place] [id number] [address] [place] [address] Feb, Bladder spasms N32.89 and Ur inary frequency R35.0 [facility] [address] [place] [id number] [address] [place] [address] Jan, Strep throat J02.0 [facility] [address] [place] [id number] [address] [place] [phone] Dec, Seasonal allergic rhinitis, unspecified trigger J30.2 [facility] [address] [place] [id number] [address] [place] [address] Nov, Acute suppurative otitis med ia of both ears without spontaneous rupture of tympanic membranes, recurrence not specified H66.003 [facility] [address] [facility] [id number] [address] [place] [address] Nov, Acute suppurative otitis med ia of both ears without spontaneous rupture of tympanic membranes, recurrence not specified H66.003 [facility] [place] [address] [address] [place] [id number] [address] [place] [address] Nov, Acute suppurative otitis med ia of both ears without spontaneous rupture of tympanic membranes, recurrence not specified H66.003 [place] [address] [address] [place] [id number] [address] [place] [address] Oct, [place] [address] [address] 21 Jul, 2017 Seizures R56.9 [place] [address] [address] 14 Jul, 2017 Seizures R56.9 ; Other chron ic pain G89.29 ; Pain in left ankle and joints of left foot M25.572 and Allergic rhinitis, unspecified allergic rhinitis trigger, unspecified rhinitis seasonality J30.9 [facility] [place] [address] [address] [place] [id number] [place] [address] 07 Jul, 2017 Acute seasonal allergic rhin itis due to other allergen J30.89 [facility] [place] [address] [address] [place] [id number] [address] [place] [address] 02 Jun, 2017 Left foot pain M79.672 and L eft lateral ankle pain M25.572 [place] [address] [address] [place] [id number] [address] [place] [address] 06 Aug, 2016 Allergic rhinitis, unspecifi ed allergic rhinitis trigger, unspecified rhinitis seasonality J30.9 ; Low back pain M54.5 and Other chronic pain G89.29 [facility] [place] [address] [address] [place] [id number] [address] [place] [address] 20 Jul, 2016 [facility] [place] [address] [address] Jul, Low back pain M54.5 and Othe r chronic pain G89.29 [facility] [place] [address] [address] Jul, Acute maxillary sinusitis, r ecurrence not specified J01.00 [facility] [place] [address] [address] Jun, Cellulitis of left lower ext remity L03.116 [facility] [place] [address] [address] Apr, Wrist pain, left M25.532 [facility] [place] [address] [address] March, Low back pain M54.5 ; Fever, unspecified R50.9 and Strep pharyngitis J02.0 [facility] [place] [address] [address] March, Hordeolum externum of left u pper eyelid H00.014 and Acute follicular conjunctivitis of left eye H10.012 [place] [address] [address] Jan, Folliculitis L73.9 [facility] [place] [address] [address] Jan, Screen for sexually transmit yayo diseases Z11.3 [place] [address] [address] Nov, [place] [address] [address] Nov, Gen idiopathic epilepsy, not intractable, 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 [facility] [place] [address] [address] Nov, Malaise R53.81 ; Upper respi ratory infection J06.9 and Pharyngitis J02.9 [facility] [address] [facility] [id number] [address] [place] [phone] 04 Nov, 2015 Acute pharyngitis, unspecifi ed J02.9 ; Acute upper respiratory infection, unspecified J06.9 ; Other viral agents as the cause of diseases classified elsewhere B97.89 and Allergic rhinitis J30.9 [facility] [address] [facility] [id number] [address] [place] [address] 04 Oct, 2015 Testicular pain N50.8 [facility] [address] [facility] [id number] [address] [place] [phone] 15 Jul, 2015 Sinusitis 473.9 [facility] [address] [place] [id number] [address] [place] [phone] 12 Apr, 2015 Back pain 724.5 [facility] [address] [facility] [id number] [address] [place] [address] Apr, [facility] [address] [facility] [id number] [address] [place] [id number] Feb, [facility] [address] [place] [id number] [address] [place] [address] Feb, [facility] [address] [facility] [id number] [address] [place] [address] Jan, [facility] [address] [facility] [id number] [address] [place] [address] Nov, [facility] [address] [facility] [id number] [address] [place] [address] Nov, [facility] [address] [facility] [id number] [address] [place] [phone] Nov, [facility] [address] [facility] [id number] [address] [place] [address] Nov, [facility] [address] [place] [id number] [address] [place] [phone] Oct, [facility] [address] [id number] [address] [place] [address], [place] [address] Oct, [facility] [address] [id number] [address] [place] [address], [place] [address] Aug, [facility] [address] [id number] [address] [place] [address], [place] [address] Aug, [facility] [address] [id number] [address] [place] [address], [place] [address] Aug, [facility] [address] [id number] [address] [place] [address], [place] [address] Aug, [facility] [address] [id number] [address] [place] [address], [place] [address] Aug, [facility] [address] [id number] [address] [place] [address], [place] [address] Aug, [facility] [address] [id number] [address] [place] [address], [place] [address] Aug, [facility] [address] [id number] [address] [place] [address], [place] [address] Aug, [facility] [address] [id number] [address] [place] [address], [place] [address] Jun, [facility] [address] [id number] [address] [place] [address], [place] [address] Jun, [facility] [address] [id number] [address] [place] [address], [place] [address] Jun, [facility] [address] [id number] [address] [place] [address], [place] [address] Jun, [facility] [address] [id number] [address] [place] [address], [place] [address] Jun, [facility] [address] [id number] [address] [place] [address], [place] [address] Jun, [facility] [address] [id number] [address] [place] [address], [place] [address] Jun, [facility] [address] [id number] [facility] [place] [address] Jun, [facility] [address] [id number] [address] [place] [address], [place] [address] Jun, [facility] [address] [id number] [address] [place] [address], [place] [address] Jun, [facility] [address] [id number] [address] [place] [address], [place] [address] May, [facility] [address] [id number] [address] [place] [address], [place] [address] May, [facility] [address] [id number] [address] [place] [address], [place] [address] March, [facility] [address] [id number] [address] [place] [address], [place] [address] March, [facility] [address] [id number] [address] [place] [address], [place] [address] March, [facility] [address] [id number] [address] [place] [address], [place] [address] March, [facility] [address] [id number] [address] [place] [address], [place] [address] Feb, [facility] [address] [id number] [address] [place] [address], [place] [address] Feb, [facility] [address] [id number] [address] [place] [address], [place] [address] Jan, [facility] [address] [id number] [address] [place] [address], [place] [address] Jan, [facility] [address] [id number] [address] [place] [address], [place] [address] Jan, [facility] [address] [id number] [address] [place] [address], [place] [address] Jan, [facility] [address] [id number] [address] [place] [address], [place] [address] 18 Dec, 2013 [facility] [address] [id number] [address] [place] [address], [place] [address] 18 Dec, 2013 [facility] [address] [id number] [address] [place] [address], [place] [address] 14 Dec, 2013 [facility] [address] [id number] [address] [place] [address], [place] [address] 14 Dec, 2013 [facility] [address] [id number] [address] [place] [address], [place] [address] Dec, [facility] [address] [id number] [address] [place] [address], [place] [address] Dec, [facility] [address] [id number] [address] [place] [address], [place] [address] Nov, [facility] [address] [id number] [address] [place] [address], [place] [address] Nov, [facility] [address] [id number] [address] [place] [address], [place] [address] Nov, [facility] [address] [id number] [address] [place] [address], [place] [address] Nov, [facility] [address] [id number] [address] [place] [address], [place] [address] Nov, [facility] [address] [id number] [address] [place] [address], [place] [address] Nov, [facility] [address] [id number] [address] [place] [address], [place] [address] Nov, [facility] [address] [id number] [address] [place] [address], [place] [address] Nov, [facility] [address] [id number] [address] [place] [address], [place] [address] Nov, [facility] [address] [id number] [address] [place] [address], [place] [address] Nov, [facility] [address] [id number] [address] [place] [address], [place] [address] Nov, [facility] [address] [id number] [address] [place] [address], [place] [address] Nov, [facility] [address] [id number] [address] [place] [address], [place] [address] Oct, [facility] [address] [id number] [address] [place] [address], [place] [address] Oct, [facility] [address] [id number] [address] [place] [address], [place] [address] Oct, [facility] [address] [id number] [address] [place] [address], [place] [address] Oct, [facility] [address] [id number] [address] [place] [address], [place] [address] Sep, [facility] [address] [id number] [address] [place] [address], [place] [address] Sep, [facility] [address] [id number] [address] [place] [address], [place] [address] Sep, [facility] [address] [id number] [address] [place] [address] Sep, [facility] [address] [id number] [address] [place] [address] Sep, [facility] [address] [id number] [address] [place] [address] Sep, [facility] [address] [id number] [address] [place] [address], [place] [address] Sep, [facility] [address] [id number] [address] [place] [address] Sep, [facility] [address] [id number] [address] [place] [address] 30 Jul, 2013 [facility] [address] [id number] [address] [place] [address] Jul, [facility] [address] [id number] [address] [place] [address], [place] [address] May, [facility] [address] [id number] [address] [place] [address], [place] [address] Apr, [facility] [address] [id number] [address] [place] [address], [place] [address] Apr, [facility] [address] [id number] [address] [place] [address], [place] [address] Apr, [facility] [address] [id number] [address] [place] [address], [place] [address] Apr, [facility] [address] [id number] [address] [place] [address], [place] [address] Apr, [facility] [address] [id number] [address] [place] [address], [place] [address] Apr, [facility] [address] [id number] [address] [place] [address], [place] [address] Apr, [facility] [address] [id number] [address] [place] [address], [place] [address] March, [facility] [address] [id number] [address] [place] [address], [place] [address] March, [facility] [address] [id number] [address] [place] [address], [place] [address] Jan, [facility] [address] [id number] [address] [place] [address], [place] [address] Dec, [facility] [address] [id number] [address] [place] [address], [place] [address] Nov, [facility] [address] [id number] [address] [place] [address], [place] [address] Nov, [facility] [address] [id number] [address] [place] [address], [place] [address] Oct, [facility] [address] [id number] [address] [place] [address], [place] [address] Oct, [facility] [address] [id number] [address] [place] [address], [place] [address] Oct, [facility] [address] [id number] [address] [place] [address], [place] [address] Oct, [facility] [address] [id number] [address] [place] [address], [place] [address] Oct, [facility] [address] [id number] [address] [place] [address], [place] [address] Oct, [facility] [address] [id number] [address] [place] [address], [place] [address] Sep, [facility] [address] [id number] [address] [place] [address], [place] [address] Sep, [facility] [address] [id number] [address] [place] [address], [place] [address] Sep, [facility] [address] [id number] [address] [place] [address], [place] [address] Sep, [facility] [address] [id number] [address] [place] [address], [place] [address] Sep, [facility] [address] [id number] [address] [place] [address], [place] [address] Sep, [facility] [address] [id number] [address] [place] [address], [place] [address] Sep, [facility] [address] [id number] [address] [place] [address], [place] [address] Sep, [facility] [address] [id number] [address] [place] [address], [place] [address] Sep, [facility] [address] [id number] [address] [place] [address], [place] [address] Sep, [facility] [address] [id number] [address] [place] [address], [place] [address] Sep, [facility] [address] [id number] [address] [place] [address], [place] [address] Sep, [facility] [address] [id number] [address] [place] [address], [place] [address] Aug, [facility] [address] [id number] [address] [place] [address], [place] [address] Aug, [facility] [address] [id number] [address] [place] [address], [place] [address] Aug, [facility] [address] [id number] [address] [place] [address], [place] [address] Aug, [facility] [address] [id number] [address] [place] [address], [place] [address] Aug, [facility] [address] [id number] [address] [place] [address], [place] [address] Aug, [facility] [address] [id number] [address] [place] [address], [place] [address] Aug, [facility] [address] [id number] [address] [place] [address], [place] [address] Aug, [facility] [address] [id number] [address] [place] [address] Aug, [facility] [address] [id number] [address] [place] [address] Aug, [facility] [address] [id number] [address] [place] [address] Jul, [facility] [address] [id number] [address] [place] [address], [place] [address] Jul, [facility] [address] [id number] [address] [place] [address], [place] [address] Jun, [facility] [address] [id number] [address] [place] [address], [place] [address] Jun, [facility] [address] [id number] [address] [place] [address], [place] [address] Jun, [facility] [address] [id number] [address] [place] [address], [place] [address] May, [facility] [address] [id number] [address] [place] [address], [place] [address] May, [facility] [address] [id number] [address] [place] [address], [place] [address] May, [facility] [address] [id number] [address] [place] [address], [place] [address] May, [facility] [address] [id number] [address] [place] [address], [place] [address] Apr, [facility] [address] [id number] [address] [place] [address], [place] [address] Apr, [facility] [address] [id number] [address] [place] [address], [place] [address] Apr, [facility] [address] [id number] [address] [place] [address], [place] [address] Apr, [facility] [address] [id number] [address] [place] [address], [place] [address] March, [facility] [address] [id number] [address] [place] [address], [place] [address] Jan, [facility] [address] [id number] [address] [place] [address], [place] [address] Dec, [facility] [address] [id number] [address] [place] [address], [place] [address] Dec, [facility] [address] [id number] [address] [place] [address], [place] [address] Oct, [facility] [address] [id number] [address] [place] [address], [place] [address] Oct, [facility] [address] [id number] [address] [place] [address], [place] [address] Oct, [facility] [place] [address] [id number] [address] [place] [address] Oct, [facility] [place] [facility] [address] [id number] [address] [place] [id number] Oct, [facility] [place] [address] [id number] [address] [place] [phone] Oct, [facility] [place] [address] [id number] [address] [place] [phone] Oct, [facility] [place] [address] [id number] [address] [place] [phone] Oct, [facility] [place] [address] [id number] [address] [place] [phone] Sep, [facility] [place] [address] [id number] [address] [place] [phone] Sep, [facility] [place] [address] [id number] [address] [place] [phone] Sep, [facility] [place] [address] [id number] [address] [place] [phone] Sep, [facility] [place] [address] [id number] [address] [place] [id number] Aug, [facility] [place] [address] [id number] [address] [place] [phone] Jul, IMMUNIZATIONS No Known Immunizations SOCIAL HISTORY Never Assessed REASON FOR VISIT bilat ear pain- trouble hearing rosalio Arzola MA is not helping PLAN OF CARE Activity Details Follow Up prn Reason: VITAL SIGNS Height 74 in 2017-11-27 Weight 293.2 lbs 2017-11-27 Temperature 97.3 degrees Fahrenheit 2017-11-27 Heart Rate 80 bpm 2017-11-27 Respiratory Rate 20 2017-11-27 BMI 37.64 kg/m2 2017-11-27 Blood pressure systolic 120 mmHg 2017-11-27 Blood pressure diastolic 76 mmHg 2017-11-27 MEDICATIONS Medication Instructions Dosage Frequency Start Date End Date Duration S tatus Flonase 50 MCG/ACT Nasally 2 times a day for allergies 1 spray i n each nostril Jul, Active EPINEPHrine 0.3 MG/0.3ML Injection 1 time as needed 0.3 mg IM Active Xyzal 5 mg Orally Once a day 1 tablet in the evening 24h 2016Nov, 30 day(s) Active Cefdinir 300 MG Orally every 12 hrs 1 capsule 12h Nov, 1 5 Nov, 2017 10 day(s) Active Naproxen 500 MG Orally every 12 hrs 1 tablet as needed 12h 06 Aug, 016 Active Pseudoephedrine HCl 60 mg Orally every 4-6 hrs PRN 1 tablet as need ed Nov, Active Depakote ER 500 mg Orally 2 times a day 2 tablets 12h Active Azithromycin 250 MG Orally Once a day 2 tablets on the fi rst day, then 1 tablet daily for 4 days 24h Nov, Nov, 5 day(s) Active Keppra XR 500 MG Orally Once a day 2 tablets 24h 30 days Active RESULTS No Results PROCEDURES No Known procedures INSTRUCTIONS MEDICATIONS ADMINISTERED No Known Medications MEDICAL (GENERAL) HISTORY Type Description Date Medical History seizures Medical History allergic rhinitis Medical History mood disorder Medical History back pain
--- OUTSIDE RECORDS SUMMARY | 2020-02-03 17:12 | XMS REPORT ---
Author Author Derek KEITH Organization [facility] Address [address] [place] [address] Care Team Providers Care Documentation Coordinator Name Role Phone ARMANI KEITH Unavailable PROBLEMS Type Condition ICD9-CM Code TKT82-HX Code Onset Dates Condition S tatus SNOMED Code Problem Anxiety F41.9 Active 86275983 Problem Seasonal allergic rhinitis due to other allergic trigger J30.89 Active 417948370 Problem Bladder spasms N32.89 Active 18769 7006 ALLERGIES No Information ENCOUNTERS Encounter Location Date Diagnosis [id number] [id number] [place] [address] May, [place] [address] [place] [id number] [place] [address] March, Elevated liver enzymes R74.8 and Abnormal CBC R79.89 [place] [address] [address] March, Encounter for immunization Z 23 [place] [address] [place] [id number] [address] [place] [address] March, [place] [address] [place] [id number] [place] [address] March, [place] [place] [id number] [address] [place] [address] March, Elevated liver enzymes R74.8 and Abnormal CBC R79.89 [place] [address] [address] [place] [id number] [address] [place] [address] March, Anxiety F41.9 ; Bronchitis J 40 and Seasonal allergic rhinitis due to other allergic trigger J30.89 [place] [address] [place] [id number] [address] [place] [address] March, [facility] [address] [place] [id number] [address] [place] [address] Feb, [facility] [address] [facility] [id number] [address] [place] [address] Feb, Pharyngitis due to other org anism J02.8 [facility] [address] [facility] [id number] [address] [place] [address] Feb, Pharyngitis due to other org anism J02.8 [facility] [place] [id number] [place] [address] Feb, Sore throat J02.9 ; Fatigue, unspecified type R53.83 and Strep pharyngitis J02.0 [facility] [place] [id number] [place] [address] Feb, Acute nasopharyngitis J00 [facility] N [address] [address] Feb, Lower abdominal pain R10.30 [facility] N [address] [address] Feb, Bladder spasms N32.89 and Ur inary frequency R35.0 [facility] N [address] [address] Jan, Strep throat J02.0 [facility] N [address] [address] Dec, Seasonal allergic rhinitis, unspecified trigger J30.2 [facility] [address] [address] Nov, Acute suppurative otitis med ia of both ears without spontaneous rupture of tympanic membranes, recurrence not specified H66.003 [facility] [address] [place] [id number] [address] [place] [address] Nov, Acute suppurative otitis med ia of both ears without spontaneous rupture of tympanic membranes, recurrence not specified H66.003 [facility] [place] [address] [place] [id number] [address] [place] [address] Nov, Acute suppurative otitis med ia of both ears without spontaneous rupture of tympanic membranes, recurrence not specified H66.003 [place] [address] [place] [id number] [address] [place] [address] Oct, [place] [address] [place] [id number] [place] [address] Jul, Seizures R56.9 [place] [address] [place] [id number] [place] [address] 14 Jul, 2017 Seizures R56.9 ; Other chron ic pain G89.29 ; Pain in left ankle and joints of left foot M25.572 and Allergic rhinitis, unspecified allergic rhinitis trigger, unspecified rhinitis seasonality J30.9 [facility] [place] [address] [address] 07 Jul, 2017 Acute seasonal allergic rhin itis due to other allergen J30.89 [facility] WALK IN [place] [address] [address] Jun, Left foot pain M79.672 and L eft lateral ankle pain M25.572 [place] [address] [address] Aug, Allergic rhinitis, unspecifi ed allergic rhinitis trigger, unspecified rhinitis seasonality J30.9 ; Low back pain M54.5 and Other chronic pain G89.29 [facility] [address] [place] [id number] [place] [address] Jul, [facility] [place] [id number] [place] [address] 12 Jul, 2016 Low back pain M54.5 and Othe r chronic pain G89.29 [facility] [place] [address] [place] [id number] [place] [address] Jul, Acute maxillary sinusitis, r ecurrence not specified J01.00 [facility] N [address] [address] Jun, Cellulitis of left lower ext remity L03.116 [facility] W[facility] [place] [address] [address] Apr, Wrist pain, left M25.532 [facility] W[facility] IN [place] [address] [address] March, Low back pain M54.5 ; Fever, unspecified R50.9 and Strep pharyngitis J02.0 [facility] [place] [address] [address] March, Hordeolum externum of left u pper eyelid H00.014 and Acute follicular conjunctivitis of left eye H10.012 [place] [address] [address] Jan, Folliculitis L73.9 [facility] WALK IN [place] [address] [address] Jan, Screen for sexually transmit yayo diseases Z11.3 [place] [address] [address] Nov, [place] [address] [address] Nov, Gen idiopathic epilepsy, not intractable, 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 [facility] WALK [place] [address] [address] Nov, Malaise R53.81 ; Upper respi ratory infection J06.9 and Pharyngitis J02.9 [facility] W[facility] [place] [address] [address] Nov, Acute pharyngitis, unspecifi ed J02.9 ; Acute upper respiratory infection, unspecified J06.9 ; Other viral agents as the cause of diseases classified elsewhere B97.89 and Allergic rhinitis J30.9 [facility] [address] [facility] [id number] [address] [place] [address] Oct, Testicular pain N50.8 [facility] [address] [id number] [address] [place] [address] 15 Jul, 2015 Sinusitis 473.9 [facility] [address] [id number] [address] [place] [address] 12 Apr, 2015 Back pain 724.5 [facility] [address] [id number] [address] [place] [address] 11 Apr, 2015 [facility] [address] [facility] [id number] [address] [place] [address] Feb, [facility] [address] [facility] [id number] [address] [place] [address] Feb, [facility] [address] [id number] [address] [place] [address] Jan, [facility] [address] [facility] [id number] [address] [place] [address] Nov, [facility] [address] [facility] [id number] [address] [place] [address] Nov, [facility] [address] [facility] [id number] [address] [place] [address] Nov, [facility] [address] [facility] [id number] [address] [place] [address] Nov, [facility] [address] [facility] [id number] [address] [place] [address] Oct, [facility] [address] [facility] [id number] [address] [place] [address] Oct, [facility] [address] [facility] [id number] [address] [place] [address] Aug, [facility] [place] [facility] [address] [id number] [facility] [place] [address] Aug, [facility] [place] [facility] [address] [id number] [facility] [place] [address] Aug, [facility] [place] [facility] [address] [id number] [facility] [place] [address] Aug, [facility] [place] [facility] [address] [id number] [address] [place] [address], [place] [address] Aug, [facility] [place] [facility] [address] [id number] [address] [place] [address], [place] [address] Aug, [facility] [place] [facility] [address] [id number] [address] [place] [address], [place] [address] Aug, [facility] [place] [facility] [address] [id number] [address] [place] [address], [place] [address] Aug, [facility] [place] [facility] [address] [id number] [address] [place] [address], [place] [address] Jun, [facility] [place] [facility] [address] [id number] [address] [place] [address], [place] [address] Jun, [facility] [place] [facility] [address] [id number] [address] [place] [address], [place] [address] Jun, [facility] [place] [facility] [address] [id number] [address] [place] [address], [place] [address] Jun, [facility] [place] [facility] [address] [id number] [address] [place] [address], [place] [address] Jun, [facility] [place] [facility] [address] [id number] [address] [place] [address], [place] [address] Jun, [facility] [place] [facility] [address] [id number] [address] [place] [address], [place] [address] Jun, [facility] [place] [facility] [address] [id number] [address] [place] [address], [place] [address] Jun, [facility] [place] [facility] [address] [id number] [address] [place] [address], [place] [address] Jun, [facility] [address] [id number] [facility] [place] [address] Jun, [facility] [place] [facility] [address] [id number] [address] [place] [address], [place] [address] May, [facility] [place] [facility] [address] [id number] [address] [place] [address], [place] [address] May, [facility] [place] [facility] [address] [id number] [address] [place] [address], [place] [address] March, [facility] [address] [id number] [address] [place] [address], [place] [address] March, [facility] [address] [id number] [address] [place] [address], [place] [address] March, [facility] [address] [id number] [address] [place] [address], [place] [address] March, [facility] [place] [facility] [address] [id number] [address] [place] [address], [place] [address] Feb, [facility] [place] [facility] [address] [id number] [address] [place] [address], [place] [address] Feb, [facility] [place] [facility] [address] [id number] [address] [place] [address], [place] [address] Jan, [facility] [place] [facility] [address] [id number] [address] [place] [address], [place] [address] Jan, [facility] [place] [facility] [address] [id number] [address] [place] [address], [place] [address] Jan, [facility] [place] [facility] [address] [id number] [address] [place] [address], [place] [address] Jan, [facility] [place] [facility] [address] [id number] [address] [place] [address], [place] [address] Dec, [facility] [place] [facility] [address] [id number] [address] [place] [address], [place] [address] Dec, [facility] [place] [facility] [address] [id number] [address] [address] 14 Dec, 2013 [facility] [address] [id number] [address] [place] [address], [place] [address] 14 Dec, 2013 [facility] [address] [id number] [address] [place] [address], [place] [address] 11 Dec, 2013 [facility] [address] [id number] [address] [place] [address], [place] [address] 11 Dec, 2013 [facility] [address] [id number] [address] [place] [address], [place] [address] 13 Nov, 2013 [facility] [address] [id number] [address] [place] [address], [place] [address] Nov, [facility] [address] [id number] [address] [place] [address], [place] [address] Nov, [facility] [address] [id number] [address] [place] [address], [place] [address] Nov, [facility] [address] [id number] [address] [place] [address], [place] [address] Nov, [facility] [address] [id number] [address] [place] [address], [place] [address] Nov, [facility] [address] [id number] [address] [place] [address], [place] [address] Nov, [facility] [address] [id number] [address] [place] [address], [place] [address] Nov, [facility] [address] [id number] [address] [place] [address], [place] [address] Nov, [facility] [address] [id number] [address] [place] [address], [place] [address] Nov, [facility] [address] [id number] [address] [place] [address], [place] [address] Nov, [facility] [address] [id number] [address] [place] [address], [place] [address] Nov, [facility] [address] [id number] [address] [place] [address], [place] [address] Oct, [facility] [address] [id number] [address] [place] [address], [place] [address] Oct, [facility] [address] [id number] [address] [place] [address], [place] [address] Oct, [facility] [address] [id number] [address] [place] [address], [place] [address] Oct, [facility] [address] [id number] [address] [place] [address], [place] [address] Sep, [facility] [address] [id number] [address] [place] [address], [place] [address] Sep, [facility] [address] [id number] [address] [place] [address], [place] [address] Sep, [facility] [address] [id number] [address] [place] [address], [place] [address] Sep, [facility] [address] [id number] [address] [place] [address], [place] [address] Sep, [facility] [address] [id number] [address] [place] [address], [place] [address] Sep, [facility] [address] [id number] [address] [place] [address], [place] [address] Sep, [facility] [address] [id number] [address] [place] [address], [place] [address] Sep, [facility] [address] [id number] [address] [place] [address], [place] [address] 30 Jul, 2013 [facility] [address] [id number] [address] [place] [address], [place] [address] 26 Jul, 2013 [facility] [address] [id number] [address] [place] [address], [place] [address] May, [facility] [address] [id number] [address] [address] [place] [address] 26 Apr, 2013 [facility] [address] [id number] [address] [place] [address], [place] [address] 24 Apr, 2013 [facility] [address] [id number] [address] [place] [address], [place] [address] 20 Apr, 2013 [facility] [address] [id number] [address] [place] [address], [place] [address] 13 Apr, 2013 [facility] [address] [id number] [address] [place] [address], [place] [address] 13 Apr, 2013 [facility] [address] [id number] [address] [place] [address], [place] [address] 10 Apr, 2013 [facility] [address] [id number] [address] [place] [address], [place] [address] Apr, [facility] [address] [id number] [address] [place] [address], [place] [address] March, [facility] [address] [id number] [address] [place] [address], [place] [address] March, [facility] [address] [id number] [address] [place] [address], [place] [address] Jan, [facility] [address] [id number] [address] [place] [address], [place] [address] 28 Dec, 2012 [facility] [address] [id number] [address] [place] [address], [place] [address] Nov, [facility] [address] [id number] [address] [place] [address], [place] [address] 14 Nov, 2012 [facility] [address] [id number] [address] [place] [address], [place] [address] Oct, [facility] [address] [id number] [address] [place] [address], [place] [address] Oct, [facility] [address] [id number] [address] [place] [address], [place] [address] Oct, [facility] [address] [id number] [address] [place] [address], [place] [address] Oct, [facility] [address] [id number] [address] [place] [address], [place] [address] Oct, [facility] [address] [id number] [address] [place] [address], [place] [address] Oct, [facility] [place] [facility] [address] [id number] [address] [place] [address], [place] [address] Sep, [facility] [address] [id number] [address] [place] [address], [place] [address] Sep, [facility] [address] [id number] [address] [place] [address], [place] [address] Sep, [facility] [address] [id number] [address] [place] [address], [place] [address] Sep, [facility] [address] [id number] [address] [place] [address], [place] [address] Sep, [facility] [address] [id number] [address] [place] [address], [place] [address] Sep, [facility] [address] [id number] [address] [place] [address], [place] [address] Sep, [facility] [address] [id number] [address] [place] [address], [place] [address] Sep, [facility] [place] [address] [id number] [address] [place] [address], [place] [address] Sep, [facility] [address] [id number] [address] [place] [address], [place] [address] Sep, [facility] [address] [id number] [address] [place] [address], [place] [address] Sep, [facility] [address] [id number] [address] [place] [address], [place] [address] Sep, [facility] [address] [id number] [address] [place] [address], [place] [address] Aug, [facility] [address] [id number] [address] [place] [address], [place] [address] Aug, [facility] [address] [id number] [address] [place] [address], [place] [address] Aug, [facility] [address] [id number] [address] [place] [address], [place] [address] Aug, [facility] [address] [id number] [address] [place] [address], [place] [address] Aug, [facility] [address] [id number] [address] [place] [address], [place] [address] Aug, [facility] [address] [id number] [address] [place] [address], [place] [address] Aug, [facility] [address] [id number] [address] [place] [address], [place] [address] Aug, [facility] [address] [id number] [address] [place] [address], [place] [address] Aug, [facility] [address] [id number] [address] [place] [address], [place] [address] Aug, [facility] [address] [id number] [address] [place] [address], [place] [address] Jul, [facility] [address] [id number] [address] [place] [address], [place] [address] Jul, [facility] [address] [id number] [address] [place] [address] Jun, [facility] [address] [id number] [address] [place] [address], [place] [address] Jun, [facility] [address] [id number] [address] [place] [address], [place] [address] Jun, [facility] [address] [id number] [address] [place] [address], [place] [address] May, [facility] [address] [id number] [address] [place] [address], [place] [address] May, [facility] [address] [id number] [address] [place] [address], [place] [address] May, [facility] [address] [id number] [address] [place] [address], [place] [address] May, [facility] [address] [id number] [address] [place] [address], [place] [address] Apr, [facility] [address] [id number] [address] [place] [address], [place] [address] Apr, [facility] [address] [id number] [address] [place] [address], [place] [address] Apr, [facility] [address] [id number] [address] [place] [address], [place] [address] Apr, [facility] [address] [id number] [address] [place] [address], [place] [address] March, [facility] [address] [id number] [address] [place] [address], [place] [address] Jan, [facility] [address] [id number] [address] [place] [address], [place] [address] Dec, [facility] [address] [id number] [address] [place] [address], [place] [address] Dec, [facility] [address] [id number] [address] [place] [address], [place] [address] Oct, [facility] [address] [id number] [address] [place] [address], [place] [address] Oct, [facility] [address] [id number] [address] [place] [address], [place] [address] Oct, [facility] [address] [id number] [address] [place] [address], [place] [address] Oct, [facility] [address] [id number] [address] [place] [address], [place] [address] 15 Oct, 2011 [facility] [address] [id number] [address] [place] [address] Oct, [facility] [address] [id number] [address] [place] [address] Oct, [facility] [address] [id number] [address] [place] [address] Oct, [facility] [address] [id number] [address] [place] [id number] Sep, [facility] [address] [id number] [address] [place] [id number] Sep, [facility] [address] [id number] [address] [place] [id number] Sep, [facility] [address] [id number] [address] [place] [id number] Sep, [facility] [address] [id number] [address] [place] [id number] Aug, [facility] [address] [id number] [address] [place] [id number] Jul, IMMUNIZATIONS No Known Immunizations SOCIAL HISTORY Never Assessed REASON FOR VISIT Refill request PLAN OF CARE VITAL SIGNS MEDICATIONS Unknown Medications RESULTS No Results PROCEDURES No Known procedures INSTRUCTIONS MEDICATIONS ADMINISTERED No Known Medications MEDICAL (GENERAL) HISTORY Type Description Date Medical History seizures Medical History allergic rhinitis Medical History mood disorder Medical History back pain
--- OUTSIDE RECORDS SUMMARY | 2020-02-03 17:12 | XMS REPORT ---
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 Name Role Phone QUENTIN WADDELL Unavailable PROBLEMS Type Condition ICD9-CM Code CLF87-ZD Code Onset Dates Condition S tatus SNOMED Code Problem Anxiety F41.9 Active 06943409 Problem Seasonal allergic rhinitis due to other allergic trigger J30.89 Active 787228591 Problem Bladder spasms N32.89 Active 97847 7006 ALLERGIES Substance Reaction Event Type Date Status Sulfamethoxazole-TMP DS other Drug Allergy Nov, Acti ve Cephalexin rash Drug Allergy Nov, Active Aspirin dizziness Drug Allergy Nov, Active Amoxicillin Unknown Drug Allergy Nov, Active ENCOUNTERS Encounter Location Date Diagnosis [place] [address] [place] [id number] [place] [address] May, [place] [address] [place] [id number] [place] [address] March, Elevated liver enzymes R74.8 and Abnormal CBC R79.89 [place] [address] [place] [id number] [place] [address] March, Encounter for immunization Z 23 [facility] [address] [place] [id number] [address] [place] [address] March, [place] [address] [place] [id number] [place] [address] March, [place] [address] [place] [id number] [place] [address] March, Elevated liver enzymes R74.8 and Abnormal CBC R79.89 [facility] [address] [place] [id number] [place] [address] March, Anxiety F41.9 ; Bronchitis J 40 and Seasonal allergic rhinitis due to other allergic trigger J30.89 [facility] [address] [facility] [id number] [address] [place] [address] March, [facility] [address] [facility] [id number] [address] [place] [address] Feb, [facility] [address] [place] [id number] [place] [address] Feb, Pharyngitis due to other org anism J02.8 [place] [address] [facility] [id number] [address] [place] [address] Feb, Pharyngitis due to other org anism J02.8 [facility] [address] [id number] [address] [place] [address] Feb, Sore throat J02.9 ; Fatigue, unspecified type R53.83 and Strep pharyngitis J02.0 [facility] [address] [id number] [address] [place] [address] Feb, Acute nasopharyngitis J00 [facility] [address] [place] [id number] [place] [address] Feb, Lower abdominal pain R10.30 [facility] [address] [place] [id number] [address] [place] [address] Feb, Bladder spasms N32.89 and Ur inary frequency R35.0 [facility] [address] [facility] [id number] [address] [place] [address] Jan, Strep throat J02.0 [facility] [address] [facility] [id number] [address] [place] [address] Dec, Seasonal allergic rhinitis, unspecified trigger J30.2 [facility] [address] [facility] [id number] [address] [place] [address] Nov, Acute suppurative otitis med ia of both ears without spontaneous rupture of tympanic membranes, recurrence not specified H66.003 [facility] [address] [facility] [id number] [address] [place] [address] Nov, Acute suppurative otitis med ia of both ears without spontaneous rupture of tympanic membranes, recurrence not specified H66.003 [facility] [place] [address] [facility] [id number] [address] [place] [address] Nov, Acute suppurative otitis med ia of both ears without spontaneous rupture of tympanic membranes, recurrence not specified H66.003 [place] [address] [facility] [id number] [address] [place] [address] Oct, [place] [address] [place] [id number] [place] [address] 21 Jul, 2017 Seizures R56.9 [place] [address] [place] [id number] [place] [address] 14 Jul, 2017 Seizures R56.9 ; Other chron ic pain G89.29 ; Pain in left ankle and joints of left foot M25.572 and Allergic rhinitis, unspecified allergic rhinitis trigger, unspecified rhinitis seasonality J30.9 [facility] [place] [address] [place] [id number] [place] [address] 07 Jul, 2017 Acute seasonal allergic rhin itis due to other allergen J30.89 [facility] [place] [address] [facility] [id number] [address] [place] [address] Jun, Left foot pain M79.672 and L eft lateral ankle pain M25.572 [place] [address] [place] [id number] [address] [place] [address] Aug, Allergic rhinitis, unspecifi ed allergic rhinitis trigger, unspecified rhinitis seasonality J30.9 ; Low back pain M54.5 and Other chronic pain G89.29 [facility] [place] [address] [place] [id number] [address] [place] [address] 20 Jul, 2016 [facility] [place] [address] [place] [id number] [place] [address] Jul, Low back pain M54.5 and Othe r chronic pain G89.29 [facility] [place] [address] [address] Jul, Acute maxillary sinusitis, r ecurrence not specified J01.00 [facility] [place] [address] [address] Jun, Cellulitis of left lower ext remity L03.116 [facility] [place] [address] [address] Apr, Wrist pain, left M25.532 [facility] [address] [address] March, Low back pain M54.5 ; Fever, unspecified R50.9 and Strep pharyngitis J02.0 [facility] [place] [address] [address] March, Hordeolum externum of left u pper eyelid H00.014 and Acute follicular conjunctivitis of left eye H10.012 [place] [address] [address] Jan, Folliculitis L73.9 [facility] [address] [address] Jan, Screen for sexually transmit yayo diseases Z11.3 [place] [address] [address] Nov, [place] [address] [address] Nov, Gen idiopathic epilepsy, not intractable, 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 [facility] [place] [address] [address] Nov, Malaise R53.81 ; Upper respi ratory infection J06.9 and Pharyngitis J02.9 [facility] [address] [facility] [id number] [address] [place] [id number] 04 Nov, 2015 Acute pharyngitis, unspecifi ed J02.9 ; Acute upper respiratory infection, unspecified J06.9 ; Other viral agents as the cause of diseases classified elsewhere B97.89 and Allergic rhinitis J30.9 [facility] [address] [facility] [id number] [address] [place] [phone] 04 Oct, 2015 Testicular pain N50.8 [facility] [address] [facility] [id number] [address] [place] [address] 15 Jul, 2015 Sinusitis 473.9 [facility] [address] [facility] [id number] [address] [place] [address] 12 Apr, 2015 Back pain 724.5 [facility] [address] [facility] [id number] [address] [place] [address] 11 Apr, 2015 [facility] [address] [facility] [id number] [address] [place] [address] Feb, [facility] [address] [id number] [address] [place] [address] Feb, [facility] [address] [facility] [id number] [address] [place] [address] Jan, [facility] [address] [facility] [id number] [address] [place] [address] Nov, [facility] [address] [id number] [address] [place] [address] Nov, [facility] [address] [id number] [address] [place] [address] Nov, [facility] [address] [facility] [id number] [address] [place] [address] Nov, [facility] [address] [facility] [id number] [address] [place] [address] Oct, [facility] [address] [id number] [address] [place] [address], [place] [address] Oct, [facility] [address] [id number] [address] [place] [address], [place] [address] Aug, [facility] [address] [id number] [address] [place] [address], [place] [address] Aug, [facility] [address] [id number] [address] [place] [address], [place] [address] Aug, [facility] [address] [id number] [address] [place] [address], [place] [address] Aug, [facility] [address] [id number] [address] [place] [address], [place] [address] Aug, [facility] [address] [id number] [address] [place] [address], [place] [address] Aug, [facility] [address] [id number] [address] [place] [address], [place] [address] Aug, [facility] [address] [id number] [address] [place] [address], [place] [address] Aug, [facility] [address] [id number] [address] [place] [address], [place] [address] Jun, [facility] [address] [id number] [address] [place] [address], [place] [address] Jun, [facility] [address] [id number] [address] [place] [address], [place] [address] Jun, [facility] [address] [id number] [address] [place] [address], [place] [address] Jun, [facility] [address] [id number] [address] [place] [address], [place] [address] Jun, [facility] [address] [id number] [address] [place] [address], [place] [address] Jun, [facility] [address] [id number] [address] [place] [address], [place] [address] Jun, [facility] [address] [id number] [address] [place] [address], [place] [address] Jun, [facility] [address] [id number] [address] [place] [address], [place] [address] Jun, [facility] [address] [id number] [address] [place] [address], [place] [address] Jun, [facility] [address] [id number] [address] [place] [address], [place] [address] May, [facility] [address] [id number] [address] [place] [address], [place] [address] May, [facility] [address] [id number] [address] [place] [address], [place] [address] March, [facility] [address] [id number] [address] [place] [address], [place] [address] March, [facility] [address] [id number] [address] [place] [address], [place] [address] March, [facility] [address] [id number] [address] [place] [address], [place] [address] March, [facility] [address] [id number] [address] [place] [address], [place] [address] Feb, [facility] [address] [id number] [address] [place] [address], [place] [address] Feb, [facility] [address] [id number] [address] [place] [address], [place] [address] Jan, [facility] [address] [id number] [address] [place] [address], [place] [address] Jan, [facility] [address] [id number] [address] [place] [address], [place] [address] Jan, [facility] [address] [id number] [address] [place] [address], [place] [address] Jan, [facility] [address] [id number] [address] [place] [address], [place] [address] 18 Dec, 2013 [facility] [address] [id number] [address] [place] [address], [place] [address] 18 Dec, 2013 [facility] [address] [id number] [address] [place] [address], [place] [address] 14 Dec, 2013 [facility] [address] [id number] [address] [place] [address], [place] [address] 14 Dec, 2013 [facility] [address] [id number] [address] [place] [address], [place] [address] Dec, [facility] [address] [id number] [address] [place] [address], [place] [address] Dec, [facility] [address] [id number] [address] [place] [address], [place] [address] Nov, [facility] [address] [id number] [address] [place] [address], [place] [address] Nov, [facility] [address] [id number] [address] [place] [address], [place] [address] Nov, [facility] [address] [id number] [address] [place] [address], [place] [address] Nov, [facility] [address] [id number] [address] [place] [address], [place] [address] Nov, [facility] [address] [id number] [address] [place] [address], [place] [address] Nov, [facility] [address] [id number] [address] [place] [address], [place] [address] Nov, [facility] [address] [id number] [address] [place] [address], [place] [address] Nov, [facility] [address] [id number] [address] [place] [address], [place] [address] Nov, [facility] [address] [id number] [address] [place] [address], [place] [address] Nov, [facility] [address] [id number] [address] [place] [address], [place] [address] Nov, [facility] [address] [id number] [address] [place] [address], [place] [address] Nov, [facility] [address] [id number] [address] [place] [address], [place] [address] Oct, [facility] [address] [id number] [address] [place] [address], [place] [address] Oct, [facility] [address] [id number] [address] [place] [address], [place] [address] Oct, [facility] [address] [id number] [address] [place] [address], [place] [address] Oct, [facility] [address] [id number] [address] [place] [address], [place] [address] Sep, [facility] [address] [id number] [address] [place] [address], [place] [address] Sep, [facility] [address] [id number] [address] [place] [address], [place] [address] Sep, [facility] [address] [id number] [address] [place] [address], [place] [address] Sep, [facility] [address] [id number] [address] [place] [address], [place] [address] Sep, [facility] [address] [id number] [address] [place] [address], [place] [address] Sep, [facility] [address] [id number] [address] [place] [address], [place] [address] Sep, [facility] [address] [id number] [address] [place] [address], [place] [address] Sep, [facility] [address] [id number] [address] [place] [address], [place] [address] 30 Jul, 2013 [facility] [address] [id number] [address] [place] [address] Jul, [facility] [address] [id number] [address] [place] [address], [place] [address] May, [facility] [address] [id number] [address] [place] [address], [place] [address] Apr, [facility] [address] [id number] [address] [place] [address], [place] [address] Apr, [facility] [address] [id number] [address] [place] [address], [place] [address] Apr, [facility] [address] [id number] [address] [place] [address], [place] [address] Apr, [facility] [address] [id number] [address] [place] [address], [place] [address] Apr, [facility] [address] [id number] [address] [place] [address], [place] [address] Apr, [facility] [address] [id number] [address] [place] [address], [place] [address] Apr, [facility] [address] [id number] [address] [place] [address], [place] [address] March, [facility] [address] [id number] [address] [place] [address], [place] [address] March, [facility] [address] [id number] [address] [place] [address], [place] [address] Jan, [facility] [address] [id number] [address] [place] [address], [place] [address] Dec, [facility] [address] [id number] [address] [place] [address], [place] [address] Nov, [facility] [address] [id number] [address] [place] [address], [place] [address] Nov, [facility] [address] [id number] [address] [place] [address], [place] [address] Oct, [facility] [address] [id number] [address] [place] [address], [place] [address] Oct, [facility] [address] [id number] [address] [place] [address], [place] [address] Oct, [facility] [address] [id number] [address] [place] [address], [place] [address] Oct, [facility] [address] [id number] [address] [place] [address], [place] [address] Oct, [facility] [address] [id number] [address] [place] [address], [place] [address] Oct, [facility] [address] [id number] [address] [place] [address], [place] [address] Sep, [facility] [address] [id number] [address] [place] [address], [place] [address] Sep, [facility] [address] [id number] [address] [place] [address], [place] [address] Sep, [facility] [address] [id number] [address] [place] [address], [place] [address] Sep, [facility] [address] [id number] [address] [place] [address], [place] [address] Sep, [facility] [address] [id number] [address] [place] [address], [place] [address] Sep, [facility] [address] [id number] [address] [place] [address], [place] [address] Sep, [facility] [address] [id number] [address] [place] [address], [place] [address] Sep, [facility] [address] [id number] [address] [place] [address], [place] [address] Sep, [facility] [address] [id number] [address] [place] [address], [place] [address] Sep, [facility] [address] [id number] [address] [place] [address], [place] [address] Sep, [facility] [address] [id number] [address] [place] [address], [place] [address] Sep, [facility] [address] [id number] [address] [place] [address], [place] [address] Aug, [facility] [address] [id number] [address] [place] [address], [place] [address] Aug, [facility] [address] [id number] [address] [place] [address], [place] [address] Aug, [facility] [address] [id number] [address] [place] [address], [place] [address] Aug, [facility] [address] [id number] [address] [place] [address], [place] [address] Aug, [facility] [address] [id number] [address] [place] [address], [place] [address] Aug, [facility] [address] [id number] [address] [place] [address], [place] [address] Aug, [facility] [address] [id number] [address] [place] [address], [place] [address] Aug, [facility] [address] [id number] [address] [place] [id number] Aug, [facility] [address] [id number] [address] [place] [address], [place] [address] Aug, [facility] [address] [id number] [address] [place] [id number] Jul, [facility] [address] [id number] [address] [place] [address], [place] [address] Jul, [facility] [address] [id number] [address] [place] [address], [place] [address] Jun, [facility] [address] [id number] [address] [place] [address], [place] [address] Jun, [facility] [address] [id number] [address] [place] [address], [place] [address] Jun, [facility] [address] [id number] [address] [place] [address], [place] [address] May, [facility] [address] [id number] [address] [place] [address], [place] [address] May, [facility] [address] [id number] [address] [place] [address], [place] [address] May, [facility] [address] [id number] [address] [place] [address], [place] [address] May, [facility] [address] [id number] [address] [place] [address], [place] [address] Apr, [facility] [address] [id number] [address] [place] [address], [place] [address] Apr, [facility] [address] [id number] [address] [place] [address], [place] [address] Apr, [facility] [address] [id number] [address] [place] [address], [place] [address] Apr, [facility] [address] [id number] [address] [place] [address], [place] [address] March, [facility] [address] [id number] [address] [place] [address], [place] [address] Jan, [facility] [address] [id number] [address] [place] [address], [place] [address] Dec, [facility] [address] [id number] [address] [place] [address], [place] [address] Dec, [facility] [address] [id number] [address] [place] [address], [place] [address] Oct, [facility] [address] [id number] [address] [place] [address], [place] [address] Oct, [facility] [address] [id number] [address] [place] [address], [place] [address] Oct, [facility] [address] [id number] [address] [place] [id number] Oct, [facility] [address] [id number] [address] [place] [id number] Oct, [facility] [address] [id number] [address] [place] [id number] Oct, [facility] [address] [address] [id number] [address] [place] [phone] Oct, [facility] [address] [id number] [address] [place] [phone] Oct, [facility] [address] [id number] [address] [place] [phone] Sep, [facility] [address] [id number] [address] [place] [phone] Sep, [facility] [address] [id number] [address] [place] [phone] Sep, [facility] [address] [id number] [address] [place] [phone] Sep, [facility] [address] [id number] [address] [place] [phone] Aug, [facility] [address] [id number] [address] [place] [phone] Jul, IMMUNIZATIONS No Known Immunizations SOCIAL HISTORY Never Assessed REASON FOR VISIT sore throat Pt states has had a sore throat with congestion and nasal drainage since Thursday. Also c/o fever and possible ear infection [facility] [place] PLAN OF CARE Activity Details Follow Up prn Reason: VITAL SIGNS Height 74 in 2017-11-24 Weight 293.1 lbs 2017-11-24 Temperature 98.2 degrees Fahrenheit 2017-11-24 Heart Rate 88 bpm 2017-11-24 Respiratory Rate 20 2017-11-24 BMI 37.63 kg/m2 2017-11-24 Blood pressure systolic 122 mmHg 2017-11-24 Blood pressure diastolic 80 mmHg 2017-11-24 MEDICATIONS Medication Instructions Dosage Frequency Start Date End Date Duration S tatus Naproxen 500 MG Orally every 12 hrs 1 tablet as needed 12h 06 Aug, 016 Active Depakote ER 500 mg Orally 2 times a day 2 tablets 12h Active Flonase 50 MCG/ACT Nasally 2 times a day for allergies 1 spray i n each nostril Jul, Active EPINEPHrine 0.3 MG/0.3ML Injection 1 time as needed 0.3 mg IM Active Keppra XR 500 MG Orally Once a day 2 tablets 24h 30 days Active Azithromycin 250 MG Orally Once a day 2 tablets on the fi rst day, then 1 tablet daily for 4 days 24h Nov, Nov, 5 day(s) Active Xyzal 5 mg Orally Once a day 1 tablet in the evening 24h 2016Nov, 30 day(s) Active RESULTS Name Result Date Reference Range STREP A (IN HOUSE) 2017-11-24 STREP A negative Control + Lot # [id number] Exp date 10/22/2018 PROCEDURES Procedure Date Ordered Result Body Site STREP A ASSAY W/OPTIC Nov 24, 2017 INSTRUCTIONS MEDICATIONS ADMINISTERED No Known Medications MEDICAL (GENERAL) HISTORY Type Description Date Medical History seizures Medical History allergic rhinitis Medical History mood disorder Medical History back pain
--- OUTSIDE RECORDS SUMMARY | 2020-02-03 17:13 | XMS REPORT | Continuity of Care Document ---
Author Organization Unknown Address Unknown Phone Unavailable Allergies Active Description Code Type Severity Reaction Onset Reported/Identified Relationship to Patient Clinical Status Yes amoxicillin Drug Allergy N/A N/A 08/07/2011 Yes amoxicillin Drug Allergy 08/07/2011 Yes aspirin Drug Allergy 09/27/2012 Yes cephilasporians Drug Allergy 09/27/[id number] ug Allergy Unknown N/A 03/30/2018 Yes Penicillins [id number] Drug Aller gy Unknown N/A 03/30/2018 Yes aspirin [id number] Drug Allergy Unknown N/A 04/28/2018 Yes cephalexin [id number] Drug Allerg y Unknown N/A 04/28/2018 Yes sulfamethoxazole [id number] Drug Allergy Unknown N/A 04/28/2018 Yes trimethoprim [id number] Drug Allergy Unknown N/A 04/28/2018 Medications There is no data. 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 08/07/2011 477.9 SHANNAN RGIC RHINITIS 08/07/2011 ROMÁN POE DOA K 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 08/07/2011 POE , JOCELYNN K 477.9 ALLERGIC RHINITIS 08/07/2011 DEEPIKA JIMENEZ, JOCELYNN K 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 08/07/2011 POE , JOCELYNN K 477.9 ALLERGIC RHINITIS 08/07/2011 THANIA WEBB MD 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 08/07/2011 THANIA WEBB MD.9 ALLERGIC RHINITIS 08/07/2011 DEEPIKA JIMENEZ JOCELYNN K 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 08/07/2011 DEEPIKA JIMENEZ JOCELYNN K 477.9 ALLERGIC RHINITIS 08/07/2011 THANIA WEBB MD 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 08/07/2011 THANIA WEBB MD7.9 ALLERGIC RHINITIS 08/07/2011 JOEL CHAN APRNINA R 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 08/07/2011 JOEL CHAN APRNINA R 477.9 ALLERGIC RHINITIS 08/07/2011 THANIA WEBB MD 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 08/07/2011 THANIA WEBB MD 477.9 ALLERGIC RHINITIS 08/07/2011 ARMANI KEITH APRN 30 9.4 AD ADJ D/O W DIST OF EMOT 08/07/2011 ARMANI KEITH APRN 47 7.9 ALLERGIC RHINITIS 08/07/2011 ARMANI KEITH APRN 30 9.4 AD ADJ D/O W DIST OF EMOT 08/07/2011 ARMANI KEITH APRN 47 7.9 ALLERGIC RHINITIS 08/07/2011 THANIA WEBB MD 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 08/07/2011 THANIA WEBB MD7.9 ALLERGIC RHINITIS 08/07/2011 THANIA WEBB MD 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 08/07/2011 THANIA WEBB MD 477.9 ALLERGIC RHINITIS 08/07/2011 ANTON MERINO APRN R 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 08/07/2011 ANTON MERINO APRN 477.9 ALLERGIC RHINITIS 08/07/2011 ROMÁN POE DOA K 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 08/07/2011 POE DO JOCELYNN K 477.9 ALLERGIC RHINITIS 08/07/2011 DEEPIKA JIMENEZ, JOCELYNN K 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9 SINU SITIS ACUTE 10/07/2011 466.0 BRON CHITIS, ACUTE 10/07/2011 461.9 SINU SITIS ACUTE 10/07/2011 466.0 BRON CHITIS, ACUTE 10/07/2011 POE DO, JOCELYNN K 461.9 [...] WEBB MD 466.0 BRONCHITIS, ACUTE 10/07/2011 DUSTIN HAWKINS, AMI R 461.9 SINUSITIS ACUTE 10/07/2011 DUSTIN HAWKINS, AMI R 466.0 BRONCHITIS, ACUTE 10/07/2011 THANIA WEBB MD 461.9 SINUSITIS ACUTE 10/07/2011 THANIA WEBB MD 466.0 BRONCHITIS, ACUTE 10/07/2011 SAGAR HAWKINS ARMANI T 46 1.9 SINUSITIS ACUTE 10/07/2011 SAGAR HAWKINS ARMANI T 46 6.0 BRONCHITIS, ACUTE 10/07/2011 SAGAR HAWKINS ARMANI T 46 1.9 SINUSITIS ACUTE 10/07/2011 SAGAR HAWKINS ARMANI T 46 6.0 BRONCHITIS, ACUTE 10/07/2011 THANIA WEBB MD 461.9 [...] 466.0 BRONCHITIS, ACUTE 10/07/2011 ARMANI KEITH APRN 46 1.9 SINUSITIS ACUTE 10/07/2011 ARMANI KEITH APRN 46 6.0 BRONCHITIS, ACUTE 10/07/2011 POE DO, JOCELYNN K 461.9 SINUSITIS ACUTE 10/07/2011 POE DO, JOCELYNN K 466.0 BRONCHITIS, ACUTE 10/07/2011 THANIA WEBB MD 461.9 SINUSITIS ACUTE 10/07/2011 THANIA WEBB MD 466.0 BRONCHITIS, ACUTE 10/20/2011 THANIA WEBB MD 462 sore throat 10/20/2011 THANIA WEBB MD 462 sore throat 10/20/2011 THANIA WEBB MD 462 sore throat 10/20/2011 462 sore t hroat 10/20/2011 462 sore t hroat 10/20/2011 462 sore t hroat 10/20/2011 462 sore t hroat 10/20/2011 462 sore t hroat 10/20/2011 POE DO, JOCELYNN K 462 sore throat 10/20/2011 POE DO, JOCELYNN K 462 sore throat 10/20/2011 THANIA WEBB MD 462 SORE THROAT 10/20/2011 POE DO, JOCELYNN K 462 sore throat 10/20/2011 THANIA WEBB MD 462 SORE THROAT 10/20/2011 DUSTIN HAWKINS AMI R 4 62 SORE THROAT 10/20/2011 THANIA WEBB MD 462 SORE THROAT 10/20/2011 ARMANI KEITH APRN 46 2 SORE THROAT 10/20/2011 ARMANI KEITH APRN 46 2 SORE THROAT 10/20/2011 THANIA WEBB MD 462 SORE THROAT 10/20/2011 THANIA WEBB MD 462 SORE THROAT 10/20/2011 WILBER HAWKINS ANTON R 462 SORE THROAT 10/20/2011 POE DO, JOCELYNN K 462 SORE THROAT 10/20/2011 POE DO, JOCELYNN K 462 SORE THROAT 10/20/2011 ARMANI KEITH APRN 46 2 SORE THROAT 10/20/2011 POE , JOCELYNN K 462 SORE THROAT 10/20/2011 THANIA WEBB MD 462 sore throat 04/20/2012 JON GÓMEZ THANIA 706.1 ACNE 04/20/2012 JON GÓMEZ, THANIA 706.1 ACNE 04/20/2012 JON GÓMEZ, THANIA 706.1 ACNE 04/20/2012 706.1 ACNE 04/20/2012 706.1 ACNE 04/20/2012 706.1 ACNE 04/20/2012 706.1 ACNE 04/20/2012 706.1 ACNE 04/20/2012 JOCELYNN POE DO K 706.1 ACNE 04/20/2012 JOCELYNN POE DO K 706.1 ACNE 04/20/2012 JON GÓMEZ, THANIA 706.1 ACNE 04/20/2012 JOCELYNN POE DO 706.1 ACNE 04/20/2012 JON GÓMEZ, THANIA 706.1 ACNE 04/20/2012 AMI CHAN APRN 706.1 ACNE 04/20/2012 JON GÓMEZ, THANIA 706.1 ACNE 04/20/2012 ARMANI KEITH APRN 70 6.1 ACNE 04/20/2012 ARMANI KEITH APRN 70 6.1 ACNE 04/20/2012 JON GÓMEZ, THANIA 706.1 ACNE 04/20/2012 JON GÓMEZ, THANIA 706.1 ACNE 04/20/2012 ANTON MERINO APRN 706.1 ACNE 04/20/2012 JOCELYNN POE DO 706.1 ACNE 04/20/2012 JOCELYNN POE DO 706.1 ACNE 04/20/2012 ARMANI KEITH APRN 70 6.1 ACNE 04/20/2012 JOCELYNN POE DO 706.1 ACNE 04/20/2012 THANIA WEBB MD 706.1 ACNE 04/30/2012 THANIA WEBB MD 276.5 1 DEHYDRATION 04/30/2012 THANIA WEBB MD 784.9 1 POSTNASAL DRIP 04/30/2012 THANIA WEBB MD 276.5 1 DEHYDRATION 04/30/2012 THANIA WEBB MD 784.9 1 POSTNASAL DRIP 04/30/2012 THANIA WEBB MD 276.5 1 DEHYDRATION 04/30/2012 THANIA WEBB MD 784.9 1 POSTNASAL DRIP 04/30/2012 276.51 DEH YDRATION 04/30/2012 784.91 POS TNASAL DRIP 04/30/2012 276.51 DEH YDRATION 04/30/2012 784.91 POS TNASAL DRIP 04/30/2012 276.51 DEH YDRATION 04/30/2012 784.91 POS TNASAL DRIP 04/30/2012 276.51 DEH YDRATION 04/30/2012 784.91 POS TNASAL DRIP 04/30/2012 276.51 DEH YDRATION 04/30/2012 784.91 POS TNASAL DRIP 04/30/2012 POE DO, JOCELYNN K 276.51 DEHYDRATION 04/30/2012 POE DO, JOCELYNN K 784.91 POSTNASAL DRIP 04/30/2012 POE DO, JOCELYNN K 276.51 DEHYDRATION 04/30/2012 POE DO, JOCELYNN K 784.91 POSTNASAL DRIP 04/30/2012 THANIA WEBB MD 276.5 1 DEHYDRATION 04/30/2012 THANIA WEBB MD 784.9 1 POSTNASAL DRIP 04/30/2012 POE DO, JOCELYNN K 276.51 DEHYDRATION 04/30/2012 POE DO, JOCELYNN K 784.91 POSTNASAL DRIP 04/30/2012 THANIA WEBB MD 276.5 1 DEHYDRATION 04/30/2012 THANIA WEBB MD4.9 1 POSTNASAL DRIP 04/30/2012 AMI CHAN APRN 276.51 DEHYDRATION 04/30/2012 AMI CHAN APRN R 784.91 POSTNASAL DRIP 04/30/2012 THANIA WEBB MD 276.5 1 DEHYDRATION 04/30/2012 THANIA WEBB MD 784.9 1 POSTNASAL DRIP 04/30/2012 ARMANI KEITH APRN 276.51 DEHYDRATION 04/30/2012 ARMANI KEITH APRN 784.91 POSTNASAL DRIP 04/30/2012 ARMANI KEITH APRN 276.51 DEHYDRATION 04/30/2012 ARMANI KEITH APRN 784.91 POSTNASAL DRIP 04/30/2012 THANIA WEBB MD 276.5 1 DEHYDRATION 04/30/2012 THANIA WEBB MD 784.9 1 POSTNASAL DRIP 04/30/2012 THANIA WEBB MD 276.5 1 DEHYDRATION 04/30/2012 THANIA WEBB MD4.9 1 POSTNASAL DRIP 04/30/2012 WIBLER HAWKINS, ANTON R 276.51 DEHYDRATION 04/30/2012 MERINO THREAD GRINDER, ANTON R 784.91 POSTNASAL DRIP 04/30/2012 POE DO, [...] 784.91 POSTNASAL DRIP 04/30/2012 THANIA WEBB MD 276.5 1 DEHYDRATION 04/30/2012 THANIA WEBB MD 784.9 1 POSTNASAL DRIP 05/31/2012 THANIA WEBB MD 780.5 2 INSOMNIA UNSPECIFIED 05/31/2012 THANIA WEBB MD 780.5 2 INSOMNIA UNSPECIFIED 05/31/2012 THANIA WEBB MD 780.5 2 INSOMNIA UNSPECIFIED 05/31/2012 780.52 INS OMNIA UNSPECIFIED 05/31/2012 780.52 INS OMNIA UNSPECIFIED 05/31/2012 780.52 INS OMNIA UNSPECIFIED 05/31/2012 780.52 INS OMNIA UNSPECIFIED 05/31/2012 780.52 INS OMNIA UNSPECIFIED 05/31/2012 DEEPIKA DO, JOCELYNN K 780.52 INSOMNIA UNSPECIFIED 05/31/2012 POE DO, JOCELYNN K 780.52 INSOMNIA UNSPECIFIED 05/31/2012 THANIA WEBB MD 780.5 2 INSOMNIA UNSPECIFIED 05/31/2012 POE DO, JOCELYNN K 780.52 INSOMNIA UNSPECIFIED 05/31/2012 THANIA WEBB MD 780.5 2 INSOMNIA UNSPECIFIED 05/31/2012 AMI CHAN APRN 780.52 INSOMNIA UNSPECIFIED 05/31/2012 THANIA WEBB MD 780.5 2 INSOMNIA UNSPECIFIED 05/31/2012 ARMANI KEITH APRN 780.52 INSOMNIA UNSPECIFIED 05/31/2012 ARMANI KEITH APRN 780.52 INSOMNIA UNSPECIFIED 05/31/2012 THANIA WEBB MD 780.5 2 INSOMNIA UNSPECIFIED 05/31/2012 THANIA WEBB MD 780.5 2 INSOMNIA UNSPECIFIED 05/31/2012 ANTON MERINO APRN R 780.52 INSOMNIA UNSPECIFIED 05/31/2012 POE DO JOCELYNN K 780.52 INSOMNIA UNSPECIFIED 05/31/2012 POE DO, JOCELYNN K 780.52 INSOMNIA UNSPECIFIED 05/31/2012 ARMANI KEITH APRN 780.52 INSOMNIA UNSPECIFIED 05/31/2012 POE DO JOCELYNN K 780.52 INSOMNIA UNSPECIFIED 05/31/2012 THANIA WEBB MD 780.5 2 INSOMNIA UNSPECIFIED 06/18/2012 THANIA WEBB MD 724.1 PAIN IN THORACIC SPINE 06/18/2012 THANIA WEBB MD 724.1 PAIN IN THORACIC SPINE 06/18/2012 THANIA WEBB MD 724.1 PAIN IN THORACIC SPINE 06/18/2012 724.1 PAIN IN THORACIC SPINE 06/18/2012 724.1 PAIN IN THORACIC SPINE 06/18/2012 724.1 PAIN IN THORACIC SPINE 06/18/2012 724.1 PAIN IN THORACIC SPINE 06/18/2012 724.1 PAIN IN THORACIC SPINE 06/18/2012 ROMÁN POE DOA K 724.1 PAIN IN THORACIC SPINE 06/18/2012 POE ROMÁN JIMENEZA K 724.1 PAIN IN THORACIC SPINE 06/18/2012 THANIA WEBB MD 724.1 PAIN IN THORACIC SPINE 06/18/2012 ROMÁN POE DOA K 724.1 PAIN IN THORACIC SPINE 06/18/2012 THANIA WEBB MD 724.1 PAIN IN THORACIC SPINE 06/18/2012 AMI CHAN APRN R 724.1 PAIN IN THORACIC SPINE 06/18/2012 THANIA WEBB MD 724.1 PAIN IN THORACIC SPINE 06/18/2012 ARMANI KEITH APRN 72 4.1 PAIN IN THORACIC SPINE 06/18/2012 ARMANI KEITH APRN 72 4.1 PAIN IN THORACIC SPINE 06/18/2012 THANIA WEBB MD 724.1 PAIN IN THORACIC SPINE 06/18/2012 THANIA WEBB MD 724.1 PAIN IN THORACIC SPINE 06/18/2012 ANTON MERINO APRN R 724.1 PAIN IN THORACIC SPINE 06/18/2012 POE ROMÁN JIMENEZA K 724.1 PAIN IN THORACIC SPINE 06/18/2012 JOCELYNN POE DO 724.1 PAIN IN THORACIC SPINE 06/18/2012 ARMANI KEITH APRN 72 4.1 PAIN IN THORACIC SPINE 06/18/2012 JOCELYNN POE DO 724.1 PAIN IN THORACIC SPINE 06/18/2012 THANIA WEBB MD 724.1 PAIN IN THORACIC SPINE 07/13/2012 THANIA WEBB MD 842.1 0 SPRAIN/STRAIN HAND 07/13/2012 THANIA WEBB MD 842.1 0 SPRAIN/STRAIN HAND 07/13/2012 THANIA WEBB MD 842.1 0 SPRAIN/STRAIN HAND 07/13/2012 842.10 SPR AIN/STRAIN HAND 07/13/2012 842.10 SPR AIN/STRAIN HAND 07/13/2012 842.10 SPR AIN/STRAIN HAND 07/13/2012 842.10 SPR AIN/STRAIN HAND 07/13/2012 842.10 SPR AIN/STRAIN HAND 07/13/2012 JOCELYNN POE DO K 842.10 SPRAIN/STRAIN HAND 07/13/2012 JOCELYNN POE DO K 842.10 SPRAIN/STRAIN HAND 07/13/2012 THANIA WEBB MD 842.1 0 SPRAIN/STRAIN HAND 07/13/2012 JOCELYNN POE DO K 842.10 SPRAIN/STRAIN HAND 07/13/2012 THANIA WEBB MD 842.1 0 SPRAIN/STRAIN HAND 07/13/2012 AMI CHAN APRN R 842.10 SPRAIN/STRAIN HAND 07/13/2012 THANIA WEBB MD 842.1 0 SPRAIN/STRAIN HAND 07/13/2012 ARMANI KEITH APRN 842.10 SPRAIN/STRAIN HAND 07/13/2012 ARMANI KEITH APRN 842.10 SPRAIN/STRAIN HAND 07/13/2012 THANIA WEBB MD 842.1 0 SPRAIN/STRAIN HAND 07/13/2012 THANIA WEBB MD 842.1 0 SPRAIN/STRAIN HAND 07/13/2012 ANTON MERINO APRN R 842.10 SPRAIN/STRAIN HAND 07/13/2012 JOCELYNN POE DO K 842.10 SPRAIN/STRAIN HAND 07/13/2012 JOCELYNN POE DO K 842.10 SPRAIN/STRAIN HAND 07/13/2012 ARMANI KEITH APRN 842.10 SPRAIN/STRAIN HAND 07/13/2012 JOCELYNN POE DO 842.10 SPRAIN/STRAIN HAND 07/13/2012 THANIA WEBB MD 842.1 0 SPRAIN/STRAIN HAND 07/21/2012 THANIA WEBB MD 845.1 0 SPRAIN/STRAIN FOOT 07/21/2012 THANIA WEBB MD 845.1 0 SPRAIN/STRAIN FOOT 07/21/2012 THANIA WEBB MD 845.1 0 SPRAIN/STRAIN FOOT 07/21/2012 845.10 SPR AIN/STRAIN FOOT 07/21/2012 845.10 SPR AIN/STRAIN FOOT 07/21/2012 845.10 SPR AIN/STRAIN FOOT 07/21/2012 845.10 SPR AIN/STRAIN FOOT 07/21/2012 845.10 SPR AIN/STRAIN FOOT 07/21/2012 JOCELYNN POE DO K 845.10 SPRAIN/STRAIN FOOT 07/21/2012 POE JOCELYNN JIMENEZ K 845.10 SPRAIN/STRAIN FOOT 07/21/2012 THANIA WEBB MD 845.1 0 SPRAIN/STRAIN FOOT 07/21/2012 POE JOCELYNN JIMENEZ K 845.10 SPRAIN/STRAIN FOOT 07/21/2012 THANIA WEBB MD 845.1 0 SPRAIN/STRAIN FOOT 07/21/2012 AMI CHAN APRN R 845.10 SPRAIN/STRAIN FOOT 07/21/2012 THANIA WEBB MD 845.1 0 SPRAIN/STRAIN FOOT 07/21/2012 ARMANI KEITH APRN 845.10 SPRAIN/STRAIN FOOT 07/21/2012 ARMANI KEITH APRN 845.10 SPRAIN/STRAIN FOOT 07/21/2012 THANIA WEBB MD 845.1 0 SPRAIN/STRAIN FOOT 07/21/2012 THNAIA WEBB MD 845.1 0 SPRAIN/STRAIN FOOT 07/21/2012 ANTON MERINO APRN R 845.10 SPRAIN/STRAIN FOOT 07/21/2012 JOCELYNN POE DO K 845.10 SPRAIN/STRAIN FOOT 07/21/2012 JOCELYNN POE DO K 845.10 SPRAIN/STRAIN FOOT 07/21/2012 SAGAR THREAD GRINDER, ARMANI T 845.10 SPRAIN/STRAIN FOOT 07/21/2012 JOCELYNN POE DO K 845.10 SPRAIN/STRAIN FOOT 07/21/2012 THANIA WEBB MD 845.1 0 SPRAIN/STRAIN FOOT 08/16/2012 THANIA WEBB MD 477.0 ALLERGIC RHINITIS DUE TO POLLEN 08/16/2012 JON GÓMEZ, THANIA 477.0 ALLERGIC RHINITIS DUE TO POLLEN 08/16/2012 THANIA WEBB MD 477.0 ALLERGIC RHINITIS DUE TO POLLEN 08/16/2012 477.0 SHANNAN RGIC RHINITIS DUE TO POLLEN 08/16/2012 477.0 SHANNAN RGIC RHINITIS DUE TO POLLEN 08/16/2012 477.0 SHANNAN RGIC RHINITIS DUE TO POLLEN 08/16/2012 477.0 SHANNAN RGIC RHINITIS DUE TO POLLEN 08/16/2012 477.0 SHANNAN RGIC RHINITIS DUE TO POLLEN 08/16/2012 JOCELYNN POE DO K 477.0 ALLERGIC RHINITIS DUE TO POLLEN 08/16/2012 JOCELYNN POE DO K 477.0 ALLERGIC RHINITIS DUE TO POLLEN 08/16/2012 THANIA WEBB MD 477.0 ALLERGIC RHINITIS DUE TO POLLEN 08/16/2012 POE JOCELYNN JIMENEZ K 477.0 ALLERGIC RHINITIS DUE TO POLLEN 08/16/2012 THANIA WEBB MD 477.0 ALLERGIC RHINITIS DUE TO POLLEN 08/16/2012 AMI CHAN APRN 477.0 ALLERGIC RHINITIS DUE TO POLLEN 08/16/2012 THANIA WEBB MD 477.0 ALLERGIC RHINITIS DUE TO POLLEN 08/16/2012 ARMANI KEITH APRN 47 7.0 ALLERGIC RHINITIS DUE TO POLLEN 08/16/2012 RAMANI EKITH APRN 47 7.0 ALLERGIC RHINITIS DUE TO POLLEN 08/16/2012 THANIA WEBB MD 477.0 ALLERGIC RHINITIS DUE TO POLLEN 08/16/2012 THANIA WEBB MD 477.0 ALLERGIC RHINITIS DUE TO POLLEN 08/16/2012 ANTON MERINO APRN 477.0 ALLERGIC RHINITIS DUE TO POLLEN 08/16/2012 JOCELYNN POE DO K 477.0 ALLERGIC RHINITIS DUE TO POLLEN 08/16/2012 POE DO, JOCELYNN K 477.0 ALLERGIC RHINITIS DUE TO POLLEN 08/16/2012 ARMANI KEITH APRN 47 7.0 ALLERGIC RHINITIS DUE TO POLLEN 08/16/2012 POE DO, JOCELYNN K 477.0 ALLERGIC RHINITIS DUE TO POLLEN 08/16/2012 THANIA WEBB MD 477.0 ALLERGIC RHINITIS DUE TO POLLEN 09/07/2012 THANIA WEBB MD 530.8 1 GERD 09/07/2012 THANIA WEBB MD 530.8 1 GERD 09/07/2012 THANIA WEBB MD 530.8 1 GERD 09/07/2012 530.81 GERD 09/07/2012 530.81 GERD 09/07/2012 530.81 GERD 09/07/2012 530.81 GERD 09/07/2012 530.81 GERD 09/07/2012 ROMÁN POE DOA K 530.81 GERD 09/07/2012 ROMÁN POE DOA K 530.81 GERD 09/07/2012 THANIA WEBB MD 530.8 1 GERD 09/07/2012 JOCELYNN POE DO K 530.81 GERD 09/07/2012 THANIA WEBB MD 530.8 1 GERD 09/07/2012 AMI CHAN APRN R 530.81 GERD 09/07/2012 THANIA WEBB MD 530.8 1 GERD 09/07/2012 ARMANI KEITH APRN 530.81 GERD 09/07/2012 ARMANI KEITH APRN 530.81 GERD 09/07/2012 THANIA WEBB MD 530.8 1 GERD 09/07/2012 THANIA WEBB MD 530.8 1 GERD 09/07/2012 ANTON MERINO APRN R 530.81 GERD 09/07/2012 JOCELYNN POE DO K 530.81 GERD 09/07/2012 ROMÁN POE DOA K 530.81 GERD 09/07/2012 ARMANI KEITH APRN 530.81 GERD 09/07/2012 ROMÁN POE DOA K 530.81 GERD 09/07/2012 THANIA WEBB MD 530.8 1 GERD 09/14/2012 THANIA WEBB MD V04.8 1 FLU DX (3 YRS AND ABOVE, IM) 09/14/2012 THANIA WEBB MD V04.8 1 FLU DX (3 YRS AND ABOVE, IM) 09/14/2012 THANIA WEBB MD V04.8 1 FLU DX (3 YRS AND ABOVE, IM) [...] YRS AND ABOVE, IM) 09/14/2012 THANIA WEBB MD4.8 1 FLU DX (3 YRS AND ABOVE, IM) 09/14/2012 POE DO, JOCELYNN K V04.81 FLU DX (3 YRS AND ABOVE, IM) 09/14/2012 THANIA WEBB MD4.8 1 FLU DX (3 YRS AND ABOVE, IM) 09/14/2012 AMI CHAN APRN R V04.81 FLU DX (3 YRS AND ABOVE, IM) 09/14/2012 THANIA WEBB MD4.8 1 FLU DX (3 YRS AND ABOVE, IM) 09/14/2012 ARMANI KEITH APRN V04.81 FLU DX (3 YRS AND ABOVE, IM) 09/14/2012 ARMANI KEITH APRN V04.81 FLU DX (3 YRS AND ABOVE, IM) 09/14/2012 THANIA WEBB MD4.8 1 FLU DX (3 YRS AND ABOVE, IM) 09/14/2012 THANIA WEBB MD.8 1 FLU DX (3 YRS AND ABOVE, IM) [...] YRS AND ABOVE, IM) 09/14/2012 THANIA WEBB MD4.8 1 FLU DX (3 YRS AND ABOVE, IM) 09/16/2012 THANIA WEBB MD.7 9 fatigue 09/16/2012 THANIA WEBB MD V15.0 9 PERSONAL HISTORY OF OTHER ALLERGY OTHER THAN TO MEDICINAL AGENTS 09/16/2012 THANIA WEBB MD 780.7 9 fatigue 09/16/2012 THANIA WEBB MD V15.0 9 PERSONAL HISTORY OF OTHER ALLERGY OTHER THAN TO MEDICINAL AGENTS 09/16/2012 THANIA WEBB MD 780.7 9 fatigue 09/16/2012 THANIA WEBB MD V15.0 9 PERSONAL HISTORY OF OTHER ALLERGY OTHER THAN TO MEDICINAL AGENTS 09/16/2012 780.79 fatigue 09/16/2012 V15.09 PER RAFAELA HISTORY OF OTHER ALLERGY OTHER THAN TO MEDICINAL AGENTS 09/16/2012 780.79 fatigue 09/16/2012 V15.09 PER RAFAELA HISTORY OF OTHER ALLERGY OTHER THAN TO MEDICINAL AGENTS 09/16/2012 780.79 fatigue 09/16/2012 V15.09 PER RAFAELA HISTORY OF OTHER ALLERGY OTHER THAN TO MEDICINAL AGENTS 09/16/2012 780.79 fatigue 09/16/2012 V15.09 PER RAFAELA HISTORY OF OTHER ALLERGY OTHER THAN TO MEDICINAL AGENTS 09/16/2012 780.79 fatigue 09/16/2012 V15.09 PER RAFAELA HISTORY OF OTHER ALLERGY OTHER THAN TO MEDICINAL AGENTS 09/16/2012 POE DO JOCELYNN K 780.79 fatigue 09/16/2012 POE DO JOCELYNN K V15.09 PERSONAL HISTORY OF OTHER ALLERGY OTHER THAN TO MEDICINAL AGENTS 09/16/2012 DEEPIKA JIMENEZ JOCELYNN K 780.79 fatigue 09/16/2012 POE DO JOCELYNN K V15.09 PERSONAL HISTORY OF OTHER ALLERGY OTHER THAN TO MEDICINAL AGENTS 09/16/2012 THANIA WEBB MD 780.7 9 FATIGUE 09/16/2012 THANIA WEBB MD V15.0 9 PERSONAL HISTORY OF OTHER ALLERGY OTHER THAN TO MEDICINAL AGENTS 09/16/2012 POE DO JOCELYNN K 780.79 fatigue 09/16/2012 POE DO JOCELYNN K V15.09 PERSONAL HISTORY OF OTHER ALLERGY OTHER THAN TO MEDICINAL AGENTS 09/16/2012 THANIA WEBB MD 780.7 9 FATIGUE 09/16/2012 THANIA WEBB MD V15.0 9 PERSONAL HISTORY OF OTHER ALLERGY OTHER THAN TO MEDICINAL AGENTS 09/16/2012 AMI CHAN APRN 780.79 FATIGUE 09/16/2012 DUSTIN THREAD GRINDER, AMI R V15.09 PERSONAL HISTORY OF OTHER ALLERGY OTHER THAN TO MEDICI NAL AGENTS 09/16/2012 THANIA WEBB MD 780.7 9 FATIGUE 09/16/2012 THANIA WEBB MD V15.0 9 PERSONAL HISTORY OF OTHER ALLERGY OTHER THAN TO MEDICINAL AGENTS 09/16/2012 ARMANI KEITH APRN 780.79 FATIGUE 09/16/2012 ARMANI KEITH APRN V15.09 PERSONAL HISTORY OF OTHER ALLERGY OTHER THAN TO MEDICI NAL AGENTS 09/16/2012 ARMANI KEITH APRN 780.79 FATIGUE 09/16/2012 ARMANI KEITH APRN V15.09 PERSONAL HISTORY OF OTHER ALLERGY OTHER THAN TO MEDICI NAL AGENTS 09/16/2012 THANIA WEBB MD 780.7 9 FATIGUE 09/16/2012 THANIA WEBB MD V15.0 9 PERSONAL HISTORY OF OTHER ALLERGY OTHER THAN TO MEDICINAL AGENTS 09/16/2012 THANIA WEBB MD 780.7 9 FATIGUE 09/16/2012 THANIA WEBB MD V15.0 9 PERSONAL HISTORY OF OTHER ALLERGY OTHER THAN TO MEDICINAL AGENTS 09/16/2012 ANTON MERINO APRN R 780.79 FATIGUE 09/16/2012 ANTON MERINO APRN R V15.09 PERSONAL HISTORY OF OTHER ALLERGY OTHER THAN TO MEDICI NAL AGENTS 09/16/2012 POE DO, JOCELYNN K 780.79 FATIGUE 09/16/2012 POE DO JOCELYNN K V15.09 PERSONAL HISTORY OF OTHER ALLERGY OTHER THAN TO MEDICINAL AGENTS 09/16/2012 POE DO JOCELYNN K 780.79 FATIGUE 09/16/2012 POE DO JOCELYNN K V15.09 PERSONAL HISTORY OF OTHER ALLERGY OTHER THAN TO MEDICINAL AGENTS 09/16/2012 ARMANI KEITH APRN 780.79 FATIGUE 09/16/2012 ARMANI KEITH APRN V15.09 PERSONAL HISTORY OF OTHER ALLERGY OTHER THAN TO MEDICI NAL AGENTS 09/16/2012 POE DO, JOCELYNN K 780.79 FATIGUE 09/16/2012 POE DO JOCELYNN K V15.09 PERSONAL HISTORY OF OTHER ALLERGY OTHER THAN TO MEDICINAL AGENTS 09/16/2012 THANIA WEBB MD 780.7 9 fatigue 09/16/2012 THANIA WEBB MD V15.0 9 PERSONAL HISTORY OF OTHER ALLERGY OTHER THAN TO MEDICINAL AGENTS 09/17/2012 THANIA WEBB MD 379.9 3 REDNESS OR DISCHARGE OF EYE 09/17/2012 THANIA WEBB MD 379.9 3 REDNESS OR DISCHARGE OF EYE 09/17/2012 THANIA WEBB MD 379.9 3 REDNESS OR DISCHARGE OF EYE 09/17/2012 379.93 RED NESS OR DISCHARGE OF EYE 09/17/2012 379.93 RED NESS OR DISCHARGE OF EYE 09/17/2012 379.93 RED NESS OR DISCHARGE OF EYE 09/17/2012 379.93 RED NESS OR DISCHARGE OF EYE 09/17/2012 379.93 RED NESS OR DISCHARGE OF EYE 09/17/2012 POE DO JOCELYNN K 379.93 REDNESS OR DISCHARGE OF EYE 09/17/2012 POE DO JOCELYNN K 379.93 REDNESS OR DISCHARGE OF EYE 09/17/2012 THANIA WEBB MD 379.9 3 REDNESS OR DISCHARGE OF EYE 09/17/2012 DEEPIKA JIMENEZ JOCELYNN K 379.93 REDNESS OR DISCHARGE OF EYE 09/17/2012 THANIA WEBB MD 379.9 3 REDNESS OR DISCHARGE OF EYE 09/17/2012 AMI CHAN APRN R 379.93 REDNESS OR DISCHARGE OF EYE 09/17/2012 THANIA WEBB MD 379.9 3 REDNESS OR DISCHARGE OF EYE 09/17/2012 ARMANI KEITH APRN 379.93 REDNESS OR DISCHARGE OF EYE 09/17/2012 ARMANI KEITH APRN T 379.93 REDNESS OR DISCHARGE OF EYE 09/17/2012 THANIA WEBB MD 379.9 3 REDNESS OR DISCHARGE OF EYE 09/17/2012 THANIA WEBB MD 379.9 3 REDNESS OR DISCHARGE OF EYE 09/17/2012 ANTON MERINO APRN R 379.93 REDNESS OR DISCHARGE OF EYE 09/17/2012 DEEPIKA JIMENEZ JOCELYNN K 379.93 REDNESS OR DISCHARGE OF EYE 09/17/2012 DEEPIKA JIMENEZ JOCELYNN K 379.93 REDNESS OR DISCHARGE OF EYE 09/17/2012 ARMANI KEITH APRN T 379.93 REDNESS OR DISCHARGE OF EYE 09/17/2012 DEEPIKA JIMENEZ JOCELYNN K 379.93 REDNESS OR DISCHARGE OF EYE 09/17/2012 THANIA WEBB MD 379.9 3 REDNESS OR DISCHARGE OF EYE 09/27/2012 HTANIA WEBB MD 345.1 0 GENERALIZED CONVULSIVE EPILEPSY WITHOUT INTRACTABLE EPILEPSY 09/27/2012 THANIA WEBB MD 345.1 0 GENERALIZED CONVULSIVE EPILEPSY WITHOUT INTRACTABLE EPILEPSY 09/27/2012 THANIA WEBB MD 345.1 0 GENERALIZED CONVULSIVE EPILEPSY WITHOUT INTRACTABLE EPILEPSY 09/27/2012 345.10 GEN ERALIZED CONVULSIVE EPILEPSY WITHOUT INTRACTABLE EPILEPSY 09/27/2012 345.10 GEN ERALIZED CONVULSIVE EPILEPSY WITHOUT INTRACTABLE EPILEPSY 09/27/2012 345.10 GEN ERALIZED CONVULSIVE EPILEPSY WITHOUT INTRACTABLE EPILEPSY 09/27/2012 345.10 GEN ERALIZED CONVULSIVE EPILEPSY WITHOUT INTRACTABLE EPILEPSY 09/27/2012 345.10 GEN ERALIZED CONVULSIVE EPILEPSY WITHOUT INTRACTABLE EPILEPSY 09/27/2012 JOCELYNN POE DO K 345.10 GENERALIZED CONVULSIVE EPILEPSY WITHOUT INTRACTABLE EPILEPSY 09/27/2012 JOCELYNN POE DO K 345.10 GENERALIZED CONVULSIVE EPILEPSY WITHOUT INTRACTABLE EPILEPSY 09/27/2012 THANIA WEBB MD 345.1 0 GENERALIZED CONVULSIVE EPILEPSY WITHOUT INTRACTABLE EPILEPSY 09/27/2012 JOCELYNN POE DO K 345.10 GENERALIZED CONVULSIVE EPILEPSY WITHOUT INTRACTABLE EPILEPSY 09/27/2012 THANIA WEBB MD 345.1 0 GENERALIZED CONVULSIVE EPILEPSY WITHOUT INTRACTABLE EPILEPSY 09/27/2012 JOEL CHAN APRNINA R 345.10 GENERALIZED CONVULSIVE EPILEPSY WITHOUT INTRACTABLE EP ILEPSY 09/27/2012 THANIA WEBB MD 345.1 0 GENERALIZED CONVULSIVE EPILEPSY WITHOUT INTRACTABLE EPILEPSY 09/27/2012 ARMANI KEITH APRN 345.10 GENERALIZED CONVULSIVE EPILEPSY WITHOUT INTRACTABLE EP ILEPSY 09/27/2012 ARMANI KEITH APRN 345.10 GENERALIZED CONVULSIVE EPILEPSY WITHOUT INTRACTABLE EP ILEPSY 09/27/2012 THANIA WEBB MD 345.1 0 GENERALIZED CONVULSIVE EPILEPSY WITHOUT INTRACTABLE EPILEPSY 09/27/2012 THANIA WEBB MD 345.1 0 GENERALIZED CONVULSIVE EPILEPSY WITHOUT INTRACTABLE EPILEPSY 09/27/2012 ANTON MERINO APRN R 345.10 GENERALIZED CONVULSIVE EPILEPSY WITHOUT INTRACTABLE EP ILEPSY 09/27/2012 ROMÁN POE DOA K 345.10 GENERALIZED CONVULSIVE EPILEPSY WITHOUT INTRACTABLE EPILEPSY 09/27/2012 ROMÁN POE DOA K 345.10 GENERALIZED CONVULSIVE EPILEPSY WITHOUT INTRACTABLE EPILEPSY 09/27/2012 ARMANI KEITH APRN 345.10 GENERALIZED CONVULSIVE EPILEPSY WITHOUT INTRACTABLE EP ILEPSY 09/27/2012 ROMÁN POE DOA K 345.10 GENERALIZED CONVULSIVE EPILEPSY WITHOUT INTRACTABLE EPILEPSY 09/27/2012 THANIA WEBB MD 345.1 0 GENERALIZED CONVULSIVE EPILEPSY WITHOUT INTRACTABLE EPILEPSY 04/07/2013 719.40 ART HRAIGIA UNSPEC 04/07/2013 780.39 SEI ZURES OTHER 04/07/2013 719.40 ART HRAIGIA UNSPEC 04/07/2013 780.39 SEI ZURES OTHER 04/07/2013 719.40 ART HRAIGIA UNSPEC 04/07/2013 780.39 SEI ZURES OTHER 04/07/2013 719.40 ART HRAIGIA UNSPEC 04/07/2013 780.39 SEI ZURES OTHER 04/07/2013 JOCELYNN POE DO K 719.40 ARTHRAIGIA UNSPEC 04/07/2013 POE JOCELYNN JIMENEZ K 780.39 SEIZURES OTHER 04/07/2013 POE ROMÁN JIMENEZA K 719.40 ARTHRAIGIA UNSPEC 04/07/2013 POE ROMÁN JIMENEZA K 780.39 SEIZURES OTHER 04/07/2013 THANIA WEBB MD 719.4 0 ARTHRAIGIA UNSPEC 04/07/2013 THANIA WEBB MD 780.3 9 SEIZURES OTHER 04/07/2013 POE JOCELYNN JIMENEZ K 719.40 ARTHRAIGIA UNSPEC 04/07/2013 JOCELYNN POE DO K 780.39 SEIZURES OTHER 04/07/2013 THANIA WEBB MD 719.4 0 ARTHRAIGIA UNSPEC 04/07/2013 THANIA WEBB MD 780.3 9 SEIZURES OTHER 04/07/2013 AMI CHAN APRN 719.40 ARTHRAIGIA UNSPEC 04/07/2013 AMI CHAN APRN R 780.39 SEIZURES OTHER 04/07/2013 THANIA WEBB MD 719.4 0 ARTHRAIGIA UNSPEC 04/07/2013 THANIA WEBB MD 780.3 9 SEIZURES OTHER 04/07/2013 ARMANI KEITH APRN 719.40 ARTHRAIGIA UNSPEC 04/07/2013 ARMANI KEITH APRN 780.39 SEIZURES OTHER 04/07/2013 ARMANI KEITH APRN 719.40 ARTHRAIGIA UNSPEC 04/07/2013 ARMANI KEITH APRN 780.39 SEIZURES OTHER 04/07/2013 THANIA WEBB MD 719.4 0 ARTHRAIGIA UNSPEC 04/07/2013 THANIA WEBB MD 780.3 9 SEIZURES OTHER 04/07/2013 THANIA WEBB MD9.4 0 ARTHRAIGIA UNSPEC 04/07/2013 THANIA WEBB MD 780.3 9 SEIZURES OTHER 04/07/2013 WILBER HAWKINS, ANTON R 719.40 ARTHRAIGIA UNSPEC 04/07/2013 WILBER HAWKINS, ANTON R 780.39 SEIZURES OTHER 04/07/2013 POE [...] JOCELYNN K 780.39 SEIZURES OTHER 05/02/2013 008.8 INTE STINAL INFECTION DUE TO OTHER ORGANISM NOT ELSEWHERE CLASSIFIED 05/02/2013 008.8 INTE STINAL INFECTION DUE TO OTHER ORGANISM NOT ELSEWHERE CLASSIFIED 05/02/2013 008.8 INTE STINAL INFECTION DUE TO OTHER ORGANISM NOT ELSEWHERE CLASSIFIED 05/02/2013 POE DO, JOCELYNN K 008.8 INTESTINAL INFECTION DUE TO OTHER ORGANISM NOT ELSEWHERE CLASSIFIED 05/02/2013 POE DO JOCELYNN K 008.8 INTESTINAL INFECTION DUE TO OTHER ORGANISM NOT ELSEWHERE CLASSIFIED 05/02/2013 THANIA WEBB MD 008.8 INTESTINAL INFECTION DUE TO OTHER ORGANISM NOT ELSEWHERE CLASSIFIED 05/02/2013 POE DOROMÁNA K 008.8 INTESTINAL INFECTION DUE TO OTHER ORGANISM NOT ELSEWHERE CLASSIFIED 05/02/2013 THANIA WEBB MD 008.8 INTESTINAL INFECTION DUE TO OTHER ORGANISM NOT ELSEWHERE CLASSIFIED 05/02/2013 AMI CHAN APRN 008.8 INTESTINAL INFECTION DUE TO OTHER ORGANISM NOT ELSEWHE RE CLASSIFIED 05/02/2013 THANIA WEBB MD 008.8 INTESTINAL INFECTION DUE TO OTHER ORGANISM NOT ELSEWHERE CLASSIFIED 05/02/2013 ARMANI KEITH APRN 00 8.8 INTESTINAL INFECTION DUE TO OTHER ORGANISM NOT ELSEWHERE CLASSIFIED 05/02/2013 ARMANI KEITH APRN 00 8.8 INTESTINAL INFECTION DUE TO OTHER ORGANISM NOT ELSEWHERE CLASSIFIED 05/02/2013 THANIA WEBB MD 008.8 INTESTINAL INFECTION DUE TO OTHER ORGANISM NOT ELSEWHERE CLASSIFIED 05/02/2013 THANIA WEBB MD 008.8 INTESTINAL INFECTION DUE TO OTHER ORGANISM NOT ELSEWHERE CLASSIFIED 05/02/2013 ANTON MERINO APRN R 008.8 INTESTINAL INFECTION DUE TO OTHER ORGANI SM NOT ELSEWHERE CLASSIFIED 05/02/2013 POE DO, JOCELYNN K 008.8 INTESTINAL INFECTION DUE TO OTHER ORGANISM NOT ELSEWHERE CLASSIFIED 05/02/2013 POE DO, JOCELYNN K 008.8 INTESTINAL INFECTION DUE TO OTHER ORGANISM NOT ELSEWHERE CLASSIFIED 05/02/2013 ARMANI KEITH APRN 00 8.8 INTESTINAL INFECTION DUE TO OTHER ORGANISM NOT ELSEWHERE CLASSIFIED 05/02/2013 POE DO, JOCELYNN K 008.8 INTESTINAL INFECTION DUE TO OTHER ORGANISM NOT ELSEWHERE CLASSIFIED 05/05/2013 995.3 SHANNAN RGY UNSPECIFIED NOT ELSEWHERE CLASSIFIED 05/05/2013 995.3 SHANNAN RGY UNSPECIFIED NOT ELSEWHERE CLASSIFIED 05/05/2013 POE DO, [...] NOT ELSEWHERE CLASSIFIED 05/05/2013 ARMANI KEITH APRN 99 5.3 ALLERGY UNSPECIFIED NOT ELSEWHERE CLASSIFIED 05/05/2013 ARMANI KEITH APRN 99 5.3 ALLERGY UNSPECIFIED NOT ELSEWHERE CLASSIFIED 05/05/2013 THANIA WEBB MD 995.3 ALLERGY UNSPECIFIED NOT ELSEWHERE CLASSIFIED 05/05/2013 THANIA WEBB MD 995.3 ALLERGY UNSPECIFIED NOT ELSEWHERE CLASSIFIED 05/05/2013 ANTON MERINO APRN 995.3 ALLERGY UNSPECIFIED NOT ELSEWHERE CLASSIFIED 05/05/2013 POE DO, JOCELYNN K 995.3 ALLERGY UNSPECIFIED NOT ELSEWHERE CLASSIFIED 05/05/2013 POE DO, JOCELYNN K 995.3 ALLERGY UNSPECIFIED NOT ELSEWHERE CLASSIFIED 05/05/2013 ARMANI KEITH APRN 99 5.3 ALLERGY UNSPECIFIED NOT ELSEWHERE CLASSIFIED 05/05/2013 POE DO, JOCELYNN K 995.3 ALLERGY UNSPECIFIED NOT ELSEWHERE CLASSIFIED 05/12/2013 916.1 JOHNNY WON OR FRICTION BURN OF HIP THIGH LEG AND ANKLE INFECTED 05/12/2013 959.7 OTHE R AND UNSPECIFIED INJURY TO KNEE LEG ANKLE AND FOOT 05/12/2013 E917.9 OTH ER ACCIDENT CAUSED BY STRIKING AGAINST OR BEING STRUCK ACCIDENTALLY BY OBJECTS OR PERSONS WITH/WITHOUT SUBSEQUENT FALL 05/12/2013 POE JOCELYNN JIMENEZ K 916.1 ABRASION OR FRICTION BURN OF [...] THIGH LEG AND ANKLE INFECTED 05/12/2013 POE ROMÁN JIMENZEA K 959.7 OTHER AND UNSPECIFIED INJURY TO KNEE LEG ANKLE AND FOOT 05/12/2013 ROMÁN POE DOA Tre E917.9 OTHER ACCIDENT CAUSED BY STRIKING AGAINST OR BEING STRUCK ACCIDENTALLY BY OBJECTS OR PERSONS WITH/WITHOUT SUBSEQUENT FALL 05/12/2013 THANIA WEBB MD 916.1 ABRASION OR FRICTION BURN OF HIP THIGH LEG AND ANKLE INFECTED 05/12/2013 THANIA WEBB MD 959.7 OTHER AND UNSPECIFIED INJURY TO KNEE LEG ANKLE AND FOOT 05/12/2013 THANIA WEBB MD E917. 9 OTHER ACCIDENT CAUSED BY STRIKING AGAINST OR BEING STRUCK ACCIDENTALLY BY OBJECTS OR PERSONS WITH/WITHOUT SUBSEQUENT FALL 05/12/2013 JOCELYNN POE DO 916.1 ABRASION OR FRICTION BURN OF HIP [...] ANKLE AND FOOT 05/12/2013 THANIA WEBB MD E917. 9 OTHER ACCIDENT CAUSED BY STRIKING AGAINST OR BEING STRUCK ACCIDENTALLY BY OBJECTS OR PERSONS WITH/WITHOUT SUBSEQUENT FALL 05/12/2013 AMI CHAN APRN R 916.1 ABRASION OR FRICTION BURN OF HIP THIGH LEG AND ANKLE I NFECTED 05/12/2013 AMI CHAN APRN R 959.7 OTHER AND UNSPECIFIED INJURY TO KNEE LEG ANKLE AND GENET T 05/12/2013 AMI CHAN APRN E917.9 OTHER ACCIDENT CAUSED BY STRIKING AGAINS T OR BEING STRUCK ACCIDENTALLY BY OBJECTS OR PERSONS WITH/WITHOUT SUBSEQUENT FALL 05/12/2013 THANIA WEBB MD 916.1 ABRASION OR FRICTION BURN OF HIP THIGH LEG AND ANKLE INFECTED 05/12/2013 THANIA WEBB MD 959.7 OTHER AND UNSPECIFIED INJURY TO KNEE LEG ANKLE AND FOOT 05/12/2013 THANIA WEBB MD E917. 9 OTHER ACCIDENT CAUSED BY STRIKING AGAINST OR BEING STRUCK ACCIDENTALLY BY OBJECTS OR PERSONS WITH/WITHOUT SUBSEQUENT FALL 05/12/2013 ARMANI KEITH APRN 91 6.1 ABRASION OR FRICTION BURN OF HIP THIGH LEG AND ANKLE INFECTED 05/12/2013 ARMANI KEITH APRN T 95 9.7 OTHER AND UNSPECIFIED INJURY TO KNEE LEG ANKLE AND FOOT 05/12/2013 ARMANI KEITH APRN E917.9 OTHER ACCIDENT CAUSED BY STRIKING AGAINS T OR BEING STRUCK ACCIDENTALLY BY OBJECTS OR PERSONS WITH/WITHOUT SUBSEQUENT FALL 05/12/2013 ARMANI KEITH APRN 91 6.1 ABRASION OR FRICTION BURN OF HIP THIGH LEG AND ANKLE INFECTED 05/12/2013 ARMANI KEITH APRN T 95 9.7 OTHER AND UNSPECIFIED INJURY TO KNEE LEG ANKLE AND FOOT 05/12/2013 ARMANI KEITH APRN E917.9 OTHER ACCIDENT CAUSED BY STRIKING AGAINS T OR BEING STRUCK ACCIDENTALLY BY OBJECTS OR PERSONS WITH/WITHOUT SUBSEQUENT FALL 05/12/2013 THANIA WEBB MD 916.1 ABRASION OR FRICTION BURN OF HIP THIGH LEG AND ANKLE INFECTED 05/12/2013 THANIA WEBB MD 959.7 OTHER AND UNSPECIFIED INJURY TO KNEE LEG ANKLE AND FOOT 05/12/2013 THANIA WEBB MD E917. 9 OTHER ACCIDENT CAUSED BY STRIKING AGAINST OR BEING STRUCK ACCIDENTALLY BY OBJECTS OR PERSONS WITH/WITHOUT SUBSEQUENT FALL 05/12/2013 THANIA WEBB MD 916.1 ABRASION OR FRICTION BURN OF HIP THIGH LEG AND ANKLE INFECTED 05/12/2013 THANIA WEBB MD 959.7 OTHER AND UNSPECIFIED INJURY TO KNEE LEG ANKLE AND FOOT 05/12/2013 THANIA WEBB MD E917. 9 OTHER ACCIDENT CAUSED BY STRIKING AGAINST OR BEING STRUCK ACCIDENTALLY BY OBJECTS OR PERSONS WITH/WITHOUT SUBSEQUENT FALL 05/12/2013 ANTON MERINO APRN R 916.1 ABRASION OR FRICTION BURN OF HIP THIGH LEG AND ANKLE I NFECTED 05/12/2013 ANTON MERINO APRN R 959.7 OTHER AND UNSPECIFIED INJURY TO KNEE LEG ANKLE AND GENET T 05/12/2013 ANTON MERINO APRN R E917.9 OTHER ACCIDENT CAUSED BY STRIKING AGAINS T OR BEING STRUCK ACCIDENTALLY BY OBJECTS OR PERSONS WITH/WITHOUT SUBSEQUENT FALL 05/12/2013 POE DO, JOCELYNN K 916.1 ABRASION OR FRICTION BURN OF HIP THIGH LEG AND ANKLE INFECTED 05/12/2013 DEEPIKA DO, JOCELYNN K 959.7 OTHER AND UNSPECIFIED INJURY TO KNEE LEG ANKLE AND FOOT 05/12/2013 POE DO, JOCELYNN K E917.9 OTHER ACCIDENT CAUSED BY STRIKING AGAINST OR BEING STRUCK ACCIDENTALLY BY OBJECTS OR PERSONS WITH/WITHOUT SUBSEQUENT FALL 05/12/2013 POE DO, JOCELYNN K 916.1 ABRASION OR FRICTION BURN OF HIP THIGH LEG AND ANKLE INFECTED 05/12/2013 DEEPIKA DO, JOCELYNN K 959.7 OTHER AND UNSPECIFIED INJURY TO KNEE LEG ANKLE AND FOOT 05/12/2013 POE DO, JOCELYNN K E917.9 OTHER ACCIDENT CAUSED BY STRIKING AGAINST OR BEING STRUCK ACCIDENTALLY BY OBJECTS OR PERSONS WITH/WITHOUT SUBSEQUENT FALL 05/12/2013 RAMANI KEITH APRN 91 6.1 ABRASION OR FRICTION BURN OF HIP THIGH LEG AND ANKLE INFECTED 05/12/2013 ARMANI KEITH APRN 95 9.7 OTHER AND UNSPECIFIED INJURY TO KNEE LEG ANKLE AND FOOT 05/12/2013 ARMANI KEITH APRN E917.9 OTHER ACCIDENT CAUSED BY STRIKING AGAINS T OR BEING STRUCK ACCIDENTALLY BY OBJECTS OR PERSONS WITH/WITHOUT SUBSEQUENT FALL 05/12/2013 POE DO, JOCELYNN K 916.1 ABRASION OR FRICTION BURN OF HIP THIGH LEG AND ANKLE INFECTED 05/12/2013 DEEPIKA JIMENEZ JOCELYNN K 959.7 OTHER AND UNSPECIFIED INJURY [...] PAIN IN LIMB 06/08/2013 ARMANI KEITH APRN 72 9.5 PAIN IN LIMB 06/08/2013 ARMANI KEITH APRN 72 9.5 PAIN IN LIMB 06/08/2013 THANIA WEBB MD 729.5 PAIN IN LIMB 06/08/2013 THANIA WEBB MD 729.5 PAIN IN LIMB 06/08/2013 ANTON MERINO APRN R 729.5 PAIN IN LIMB 06/08/2013 POE DO, JOCELYNN K 729.5 PAIN IN LIMB 06/08/2013 POE DO, JOCELYNN K 729.5 PAIN IN LIMB 06/08/2013 ARMANI KEITH APRN T 72 9.5 PAIN IN LIMB 06/08/2013 POE DO, JOCELYNN K 729.5 PAIN IN LIMB 10/11/2013 POE DO, JOCELYNN K 709.9 UNSPECIFIED DISORDER OF SKIN AND SUBCUTANEOUS TISSUE 10/11/2013 THANIA WEBB MD 709.9 UNSPECIFIED DISORDER OF SKIN AND SUBCUTANEOUS TISSUE 10/11/2013 DEEPIKA JIMENEZ, JOCELYNN K 709.9 UNSPECIFIED DISORDER OF SKIN AND SUBCUTANEOUS TISSUE 10/11/2013 THANIA WEBB MD 709.9 UNSPECIFIED DISORDER OF SKIN AND SUBCUTANEOUS TISSUE 10/11/2013 AMI CHAN APRN R 709.9 UNSPECIFIED DISORDER OF SKIN AND SUBCUTANEOUS TISSUE 10/11/2013 THANIA WEBB MD 709.9 UNSPECIFIED DISORDER OF SKIN AND SUBCUTANEOUS TISSUE 10/11/2013 ARMANI KEITH APRN 70 9.9 UNSPECIFIED DISORDER OF SKIN AND SUBCUTANEOUS TISSUE 10/11/2013 ARMANI KEITH APRN 70 9.9 UNSPECIFIED DISORDER OF SKIN AND SUBCUTANEOUS TISSUE 10/11/2013 THANIA WEBB MD 709.9 UNSPECIFIED DISORDER OF SKIN AND SUBCUTANEOUS TISSUE 10/11/2013 THANIA WEBB MD 709.9 UNSPECIFIED DISORDER OF SKIN AND SUBCUTANEOUS TISSUE 10/11/2013 ANTON MERINO APRN R 709.9 UNSPECIFIED DISORDER OF SKIN AND SUBCUTANEOUS TISSUE 10/11/2013 POE DO, JOCELYNN K 709.9 UNSPECIFIED DISORDER OF SKIN AND SUBCUTANEOUS TISSUE 10/11/2013 POE DO, JOCELYNN K 709.9 UNSPECIFIED DISORDER OF SKIN AND SUBCUTANEOUS TISSUE 10/11/2013 ARMANI KEITH APRN 70 9.9 UNSPECIFIED DISORDER OF SKIN AND SUBCUTANEOUS TISSUE 10/11/2013 POE DO, JOCELYNN K 709.9 UNSPECIFIED DISORDER OF SKIN AND SUBCUTANEOUS TISSUE 11/28/2013 THANIA WEBB MD 461.9 ACUTE SINUSITIS UNSPECIFIED 11/28/2013 AMI CHAN APRN R 461.9 ACUTE SINUSITIS UNSPECIFIED 11/28/2013 THANIA WEBB MD 461.9 ACUTE SINUSITIS UNSPECIFIED 11/28/2013 ARMANI KEITH APRN 46 1.9 ACUTE SINUSITIS UNSPECIFIED 11/28/2013 ARMANI KEITH APRN 46 1.9 ACUTE SINUSITIS UNSPECIFIED 11/28/2013 THANIA WEBB MD 461.9 ACUTE SINUSITIS UNSPECIFIED 11/28/2013 THANIA WEBB MD 461.9 ACUTE SINUSITIS UNSPECIFIED 11/28/2013 ANTON MERINO APRN R 461.9 ACUTE SINUSITIS UNSPECIFIED 11/28/2013 POE DO, JOCELYNN K 461.9 ACUTE SINUSITIS UNSPECIFIED 11/28/2013 POE DO, JOCELYNN K 461.9 ACUTE SINUSITIS UNSPECIFIED 11/28/2013 ARMANI KEITH APRN 46 1.9 ACUTE SINUSITIS UNSPECIFIED 11/28/2013 POE DO, JOCELYNN K 461.9 ACUTE SINUSITIS UNSPECIFIED 01/03/2014 DUSTIN HAWKINS AMI R 477.1 ALLERGIC RHINITIS DUE TO FOOD 01/03/2014 THANIA WEBB MD 477.1 ALLERGIC RHINITIS DUE TO FOOD 01/03/2014 ARMANI KEITH APRN 47 7.1 ALLERGIC RHINITIS DUE TO FOOD 01/03/2014 ARMANI KEITH APRN 47 7.1 ALLERGIC RHINITIS DUE TO FOOD 01/03/2014 THANIA WEBB MD 477.1 ALLERGIC RHINITIS DUE TO FOOD 01/03/2014 THANIA WEBB MD 477.1 ALLERGIC RHINITIS DUE TO FOOD 01/03/2014 ANTON MERINO APRN R 477.1 ALLERGIC RHINITIS DUE TO FOOD 01/03/2014 POE DO, JOCELYNN K 477.1 ALLERGIC RHINITIS DUE TO FOOD 01/03/2014 POE DO, JOCELYNN K 477.1 ALLERGIC RHINITIS DUE TO FOOD 01/03/2014 ARMANI KEITH APRN 47 7.1 ALLERGIC RHINITIS DUE TO FOOD 01/03/2014 POE DO, JOCELYNN K 477.1 ALLERGIC RHINITIS DUE TO FOOD 05/31/2014 THANIA WEBB MD 214.0 LIPOMA OF SKIN AND SUBCUTANEOUS TISSUE OF FACE 05/31/2014 THANIA WEBB MD 296.9 0 MOOD DISORDER 05/31/2014 ARMANI KEITH APRN 21 4.0 LIPOMA OF SKIN AND SUBCUTANEOUS TISSUE OF FACE 05/31/2014 ARMANI KEITH APRN 296.90 MOOD DISORDER 05/31/2014 ARMANI KEITH APRN 21 4.0 LIPOMA OF SKIN AND SUBCUTANEOUS TISSUE OF FACE 05/31/2014 ARMANI KEITH APRN 296.90 MOOD DISORDER 05/31/2014 THANIA WEBB MD 214.0 LIPOMA OF SKIN AND SUBCUTANEOUS TISSUE OF FACE 05/31/2014 THANIA WEBB MD 296.9 0 MOOD DISORDER 05/31/2014 THANIA WEBB MD 214.0 LIPOMA OF SKIN AND SUBCUTANEOUS TISSUE OF FACE 05/31/2014 THANIA WEBB MD 296.9 0 MOOD DISORDER 05/31/2014 ANTON MERINO APRN R 214.0 LIPOMA OF SKIN AND SUBCUTANEOUS TISSUE OF FACE 05/31/2014 ANTON MERINO APRN R 296.90 MOOD DISORDER 05/31/2014 POE DO, JOCELYNN K 214.0 LIPOMA OF SKIN AND SUBCUTANEOUS TISSUE OF FACE 05/31/2014 POE DO, JOCELYNN K 296.90 MOOD DISORDER 05/31/2014 POE DO, JOCELYNN K 214.0 LIPOMA OF SKIN AND SUBCUTANEOUS TISSUE OF FACE 05/31/2014 POE DO, JOCELYNN K 296.90 MOOD DISORDER 05/31/2014 ARMANI KEITH APRN 21 4.0 LIPOMA OF SKIN AND SUBCUTANEOUS TISSUE OF FACE 05/31/2014 ARMANI KEITH APRN 296.90 MOOD DISORDER 05/31/2014 DEEPIKA JIMENEZ JOCELYNN K 214.0 LIPOMA OF SKIN AND SUBCUTANEOUS TISSUE OF FACE 05/31/2014 POE DO, JOCELYNN K 296.90 MOOD DISORDER 06/28/2014 ARMANI KEITH APRN V7 4.5 STD SCREEN 06/28/2014 ARMANI KEITH APRN V7 4.5 STD SCREEN 06/28/2014 THANIA WEBB MD V74.5 STD SCREEN 06/28/2014 THANIA WEBB MD V74.5 STD SCREEN 06/28/2014 ANTON MERINO APRN V74.5 STD SCREEN 06/28/2014 POE , JOCELYNN K V74.5 STD SCREEN 06/28/2014 POE DO, JOCELYNN K V74.5 STD SCREEN 06/28/2014 ARMANI KEITH APRN V7 4.5 STD SCREEN 06/28/2014 POE DO, JOCELYNN K V74.5 STD SCREEN 07/11/2014 ARMANI KEITH APRN 70 6.2 SEBACEOUS CYST 07/11/2014 THANIA WEBB MD 706.2 SEBACEOUS CYST 07/11/2014 THANIA WEBB MD 706.2 SEBACEOUS CYST 07/11/2014 ANTON MERINO APRN 706.2 SEBACEOUS CYST 07/11/2014 POE DO, JOCELYNN K 706.2 SEBACEOUS CYST 07/11/2014 POE DO, JOCELYNN K 706.2 SEBACEOUS CYST 07/11/2014 ARMANI KEITH APRN 70 6.2 SEBACEOUS CYST 07/11/2014 POE , JOCELYNN K 706.2 SEBACEOUS CYST 07/19/2014 THANIA WEBB MD V58.3 2 SUTURE REMOVAL 07/19/2014 THANIA WEBB MD V58.3 2 SUTURE REMOVAL 07/19/2014 ANTON MERINO APRN V58.32 SUTURE REMOVAL 07/19/2014 POE DO JOCELYNN K V58.32 SUTURE REMOVAL 07/19/2014 POE DO JOCELYNN K V58.32 SUTURE REMOVAL 07/19/2014 ARMANI KEITH APRN V58.32 SUTURE REMOVAL 07/19/2014 POE DO JOCELYNN K V58.32 SUTURE REMOVAL 09/14/2014 THANAI WEBB MD 463 ACUTE TONSILLITIS 09/14/2014 ANTON MERINO APRN 463 ACUTE TONSILLITIS 09/14/2014 JOCELYNN POE DO K 463 ACUTE TONSILLITIS 09/14/2014 JOCELYNN POE DO K 463 ACUTE TONSILLITIS 09/14/2014 ARMANI KEITH APRN 46 3 ACUTE TONSILLITIS 09/14/2014 JOCELYNN POE DO K 463 ACUTE TONSILLITIS 10/28/2014 JOCELYNN POE DO K 462 ACUTE PHARYNGITIS 10/28/2014 ARMANI KEITH APRN 46 2 ACUTE PHARYNGITIS 10/28/2014 JOCELYNN POE DO K 462 ACUTE PHARYNGITIS 02/26/2015 JOCELYNN POE DO V06.1 TDAP DX 03/30/2018 HEATH GÓMEZ, STANISLAV Doss Ot F17.290 NICOTINE DEPENDENCE, OTHER TOBACCO PRODU 03/30/2018 STANISLAV JOE MD Ot F41.9 ANXIETY DISORDER, UNSPECIFIED 03/30/2018 STANISLAV JOE MD Ot G40.909 EPILEPSY, UNSP, NOT INTRACTABLE, WITHOUT 03/30/2018 STANISLAV JOE MD Ot K21.9 GASTRO-ESOPHAGEAL REFLUX DISEASE WITHOUT 03/30/2018 STANISLAV JOE MD Ot R00.2 PALPITATIONS 03/30/2018 STANISLAV JOE MD Ot R07.89 OTHER CHEST PAIN 03/30/2018 STANISLAV JOE MD Ot R41.82 ALTERED MENTAL STATUS, UNSPECIFIED 03/30/2018 STANISLAV JOE MD Ot R42 DIZZINESS AND GIDDINESS 03/30/2018 STANISLAV JOE MD Ot R94.5 ABNORMAL RESULTS OF LIVER FUNCTION STUDI 03/30/2018 STANISLAV JOE MD Ot Z88.0 ALLERGY STATUS TO PENICILLIN 04/01/2018 [...] MD Ot Z88.0 ALLERGY STATUS TO PENICILLIN 04/13/2018 STANISLAV JOE MD Ot F17.210 NICOTINE DEPENDENCE, CIGARETTES, UNCOMPL 04/13/2018 STANISLAV JOE MD Ot F41.9 ANXIETY DISORDER, UNSPECIFIED 04/13/2018 STANISLAV JOE MD Ot G40.909 EPILEPSY, UNSP, NOT INTRACTABLE, WITHOUT 04/13/2018 STANISLAV JOE MD Ot J02.9 ACUTE PHARYNGITIS, UNSPECIFIED 04/13/2018 STANISLAV JOE MD Ot J45.909 UNSPECIFIED ASTHMA, UNCOMPLICATED 04/13/2018 STANISLAV JOE MD Ot K21.9 GASTRO-ESOPHAGEAL REFLUX DISEASE WITHOUT 04/13/2018 STANISLAV JOE MD Ot R06.00 DYSPNEA, UNSPECIFIED 04/13/2018 STANISLAV JOE MD Ot Z88.0 ALLERGY STATUS TO PENICILLIN 04/13/2018 STANISLAV JOE MD Ot Z88.5 ALLERGY STATUS TO NARCOTIC AGENT STATUS 04/15/2018 STANISLAV JOE MD Ot F17.210 NICOTINE DEPENDENCE, CIGARETTES, UNCOMPL 04/15/2018 STANISLAV JOE MD Ot F41.9 ANXIETY DISORDER, UNSPECIFIED 04/15/2018 STANISLAV JOE MD Ot G40.909 EPILEPSY, UNSP, NOT INTRACTABLE, WITHOUT 04/15/2018 STANISLAV JOE MD Ot J02.9 ACUTE PHARYNGITIS, UNSPECIFIED 04/15/2018 STANISLAV JOE MD Ot J45.909 UNSPECIFIED ASTHMA, UNCOMPLICATED 04/15/2018 STANISLAV JOE MD Ot K21.9 GASTRO-ESOPHAGEAL REFLUX DISEASE WITHOUT 04/15/2018 STANISLAV JOE MD Ot R06.00 DYSPNEA, UNSPECIFIED 04/15/2018 STANISLAV JOE MD Ot Z88.0 ALLERGY STATUS TO PENICILLIN 04/15/2018 STANISLAV JOE MD Ot Z88.5 ALLERGY STATUS TO NARCOTIC AGENT STATUS 04/28/2018 JHONNY GARSIA MD Ot Z01.818 ENCOUNTER FOR OTHER PREPROCEDURAL EXAMIN 04/30/2018 JHONNY GARSIA MD Ot Z01.818 ENCOUNTER FOR OTHER PREPROCEDURAL EXAMIN 04/30/2018 JHONNY GARSIA MD Ot J35.01 CHRONIC TONSILLITIS 04/30/2018 JHONNY GARSIA MD Ot R56 .9 UNSPECIFIED CONVULSIONS 04/30/2018 JHONNY GARSIA MD Ot Z79.899 OTHER PEDIATRIC NEPHROLOGIST (CURRENT) DRUG THERAPY 05/04/2018 JHONNY GARSIA MD Ot J35.01 CHRONIC TONSILLITIS 05/04/2018 JHONNY GARSIA MD Ot R56 .9 UNSPECIFIED CONVULSIONS 05/04/2018 JHONNY GARSIA MD Ot Z79.899 OTHER PEDIATRIC NEPHROLOGIST (CURRENT) DRUG THERAPY 05/05/2018 JHONNY GARSIA MD Ot J35.01 CHRONIC TONSILLITIS 05/05/2018 JHONNY GARSIA MD Ot R56 .9 UNSPECIFIED CONVULSIONS 05/05/2018 JHONNY GARSIA MD Ot Z79.899 OTHER NURSING HOME (CURRENT) DRUG THERAPY 04/06/2019 GEMA GÓMEZ, HOSSEIN Pope Ot G40.A 09 ABSENCE EPILEPTIC SYNDROME, NOT INTRACTA 04/11/2019 HOSSEIN RIBEIRO MD Ot G40.A 09 ABSENCE EPILEPTIC SYNDROME, NOT INTRACTA 04/11/2019 HOSSEIN RIBEIRO MD Ot G40.A 09 ABSENCE EPILEPTIC SYNDROME, NOT INTRACTA 04/12/2019 HOSSEIN RIBEIRO MD Ot G40.A 09 ABSENCE EPILEPTIC SYNDROME, NOT INTRACTA 02/01/2020 HOSSEIN RIBEIRO MD Ot G40.A 09 ABSENCE EPILEPTIC SYNDROME, NOT INTRACTA Procedures Code Description Performed By Per formed On Otolaryng Jhonny Garsia 09/20/2012 79834 ROUT INE VENIPUNCTURE 09/28/2012 37547 EEG 09/28/2012 36198 CMP 09/28/2012 [id number] GF R CALC (RESULT ONLY) 09/28/2012 18685 TSH 09/29/[address] H EAD/BRAIN W/O & W/DYE 10/04/2012 20103 ROUT INE VENIPUNCTURE 10/15/2012 23166 DILANTIN 10/16/2012 67879 CMP 10/16/2012 [id number] GF R CALC (RESULT ONLY) 10/16/2012 24277 ROUT INE VENIPUNCTURE 10/18/2012 14587 HEPA TITIS PROFILE 10/19/2012 00772 VALP ROIC ACID / DEPAKOTE 10/26/2012 55347 ROUT INE VENIPUNCTURE 11/12/2012 62067 CMP 11/12/2012 [id number] GF R CALC (RESULT ONLY) 11/12/2012 23860 VALP ROIC ACID / DEPAKOTE 11/13/2012 15671 ROUT INE VENIPUNCTURE 12/06/2012 38543 VALP ROIC ACID / DEPAKOTE 12/07/2012 93547 ROUT INE VENIPUNCTURE 04/25/2013 13767 VALP ROIC ACID / DEPAKOTE 04/25/2013 36007 THER APUTIC INJ SQ/IM 05/05/2013 J1040 DEPO MEDROL 80 MG INJ 05/05/2013 84695 XRAY TIBULA FIBULA LEFT 05/12/2013 78302 ROUT INE VENIPUNCTURE 10/11/2013 32966 CBC 10/11/2013 [id number] GF R CALC (RESULT ONLY) 10/11/2013 42672 CMP 10/11/2013 15422 VALP ROIC ACID / DEPAKOTE 10/11/2013 [facility] 11/15/2013 34133 ROUT INE VENIPUNCTURE 06/28/2014 41779 SYPH ILLIS-[facility] 06/28/2014 01360 HIV ([facility]) 06/28/2014 24594 HEP B SURFACE ANTIGEN ([facility]) 06/28/2014 46958 GC/C HLAM PROBE ([facility]) 06/28/2014 15587 ROUT INE VENIPUNCTURE 07/11/2014 90900 EXCI OWN BENIGN LESION 0.6-1 cm (spcify location in [facility] description) 07/11/2014 45131 VALP ROIC ACID / DEPAKOTE 07/11/2014 66256 EXCI WON BENIGN LESION 0.6-1 cm (spcify location in [facility] description) 07/11/2014 34453 VALP ROIC ACID / DEPAKOTE 07/11/2014 25414 ROUT INE VENIPUNCTURE 07/19/2014 [id number] GF R CALC (RESULT ONLY) 07/19/2014 50092 CMP 07/19/2014 62716 OXIMETRY 09/18/2014 59014 ROUT INE VENIPUNCTURE 12/01/2014 38739 VALP ROIC ACID / DEPAKOTE 12/01/2014 70630 CBC W/MANUAL DIF (order) 12/01/2014 [id number] GF R CALC (RESULT ONLY) 12/01/2014 49332 CMP 12/01/2014 Results Test Result Range Complete blood count (CBC) with automate d white blood cell (WBC) differential - 03/30/18 21:35 Blood leukocytes automated count (number/volume) 10.9 10*3/uL 4.3-11.0 Blood erythrocytes automated count (number/volume) 4.80 10*6/uL 4.35-5.85 Venous blood hemoglobin measurement (mass/volume) 14.8 g/dL 13.3-17.7 Blood hematocrit (volume fraction) 42 % 40-54 Automated erythrocyte mean corpuscular volume 88 [ foz_us] 80-99 Automated erythrocyte mean corpuscular h emoglobin (mass per erythrocyte) 31 pg 25-34 Automated erythrocyte mean corpuscular h emoglobin concentration measurement (mass/volume) 35 g/dL 32-36 Automated erythrocyte distribution width ratio 12. 2 % 10.0- 14.5 Automated blood platelet count (count/volume) 302 10*3/uL [...] 10*3 1.0-4.0 Blood monocytes automated count (number/volume) 1. 0 10*3 0.0-1.0 Automated eosinophil count 0.2 10*3/uL 0 .0-0.3 Automated blood basophil count (count/volume) 0.1 10*3/uL 0.0-0.1 PT panel in platelet poor plasma by coag ulation assay - 03/30/18 21:35 Prothrombin time (PT) in platelet poor plasma by coagu lation assay 12.9 s 12.2-14.7 INR in platelet poor plasma or blood by coagulation as say 1.0 0.8-1.4 Complete urinalysis with reflex to cultu re - 03/30/18 21:35 Urine color determination YELLOW NRG Urine clarity determination CLEAR NR G Urine pH measurement by test strip 6 5-9 Specific gravity of urine by test strip 1.025 1.016-1.022 Urine protein assay by test strip, semi-quantitative 1+ NEGATIVE Urine glucose detection by automated test strip NE GATIVE NEGATIVE Erythrocytes detection in urine sediment by light micr oscopy NEGATIVE NEGATIVE Urine ketones detection by automated test strip NE GATIVE NEGATIVE Urine nitrite detection by test strip NEGATIVE NEGATIVE Urine total bilirubin detection by test strip NEGA TIVE NEGATIVE Urine urobilinogen measurement by automated test strip (mass/volume) NORMAL NORMAL Urine leukocyte esterase detection by dipstick NEG ATIVE NEGATIVE Automated urine sediment erythrocyte cou nt by microscopy (number/high power field) NONE NRG Automated urine sediment leukocyte count by microscopy (number/high power field) RARE NRG Bacteria detection in urine sediment by light microsco py NEGATIVE NRG Crystals detection in urine sediment by light microsco py NONE NRG Casts detection in urine sediment by light microscopy NONE NRG Mucus detection in urine sediment by light microscopy NEGATIVE NRG Complete urinalysis with reflex to culture NO NRG Activated partial thromboplastin time (a PTT) in platelet poor plasma bycoagulation assay - 03/30/18 21:35 Activated partial thromboplastin time (a PTT) in platelet poor plasma bycoagulation assay 24 s 24-35 Comprehensive metabolic panel - 03/30/18 21:35 Serum or plasma sodium measurement (moles/volume) 138 mmol/L 135-145 Serum or plasma potassium measurement (moles/volume) 4.1 mmol/L 3.6-5.0 Serum or plasma chloride measurement (moles/volume) 106 mmol/L 98-107 Carbon dioxide 19 mmol/L 21-32 Serum or plasma anion gap determination (moles/volume) 13 mmol/L 5-14 Serum or plasma urea nitrogen measurement (mass/volume ) 16 mg/dL 7-18 Serum or plasma creatinine measurement (mass/volume) 0.80 mg/dL 0.60-1.30 Serum or plasma urea nitrogen/creatinine mass ratio 20 NRG Serum or plasma creatinine measurement w ith calculation of estimated glomerular filtration rate > NRG Serum or plasma glucose measurement (mass/volume) 142 mg/dL 70-105 Serum or plasma calcium measurement (mass/volume) 9.2 mg/dL 8.5-10.1 Serum or plasma total bilirubin measurement (mass/volu me) 0.2 mg/dL 0.1-1.0 Serum or plasma alkaline phosphatase cedric surement (enzymatic activity/volume) 138 U/L 40-136 Serum or plasma aspartate aminotransfera se measurement (enzymatic activity/volume) 51 U/L 5-34 Serum or plasma alanine aminotransferase measurement (enzymatic activity/volume) 87 U/L 0-55 Serum or plasma protein measurement (mass/volume) 7.4 g/dL 6.4-8.2 Serum or plasma albumin measurement (mass/volume) 4.6 g/dL 3.2-4.5 Magnesium - 03/30/18 21:35 Magnesium 2.4 mg/dL 1.8-2.4 Urine drug screening test - 03/30/18 21: 35 Urine phencyclidine detection by screening method NEGATIVE NEGATIVE Urine benzodiazepines detection by screening method NEGATIVE NEGATIVE Urine cocaine detection NEGATIVE NEGATI VE Urine amphetamines detection by screening method N EGATIVE NEGATIVE Urine methamphetamine detection by screening method NEGATIVE NEGATIVE Urine cannabinoids detection by screening method N EGATIVE NEGATIVE Urine opiates detection by screening method NEGATI VE NEGATIVE Urine barbiturates detection NEGATIVE N EGATIVE Screening urine tricyclic antidepressants detection POSITIVE NEGATIVE Urine methadone detection by screening method NEGA TIVE NEGATIVE Urine oxycodone detection NEGATIVE NEGA TIVE Urine propoxyphene detection NEGATIVE N EGATIVE Serum or plasma thyrotropin measurement by detection limit <=0.05 miu/l (units/volume) - 03/30/18 21:35 Serum or plasma thyrotropin measurement by detection limit <=0.05 miu/l (units/volume) 1.41 u[iU]/mL 0.35-4.94 [id number] - 03/30/18 21:35 [id number] 44.8 ug/mL 50.0-100.0 Serum or plasma troponin i.cardiac measu rement (mass/volume) - 03/30/18 21:35 Serum or plasma troponin i.cardiac measurement (mass/v olume) < ng/mL <0.30 Serum or plasma ethanol measurement (mas s/volume) - 03/30/18 21:35 Serum or plasma ethanol measurement (mass/volume) < mg/dL <10 Myoglobin, serum - 03/30/18 21:35 Myoglobin, serum 44.0 ng/mL 10.0-92.0 Streptococcus pyogenes antigen detection - 04/13/18 15:19 Streptococcus pyogenes antigen detection NEGATIVE NEGATIVE Bacterial throat culture - 04/13/18 15:1 9 Bacterial throat culture NBS NR CBC - 04/21/18 16:23 WHITE BLOOD CELL COUNT 7.4 Thousand/uL 3 .8-10.8 RED BLOOD CELL COUNT 4.57 Million/uL 4.2 0-5.80 HEMOGLOBIN 14.0 g/dL 13.2-17.1 HEMATOCRIT 40.9 % 38.5-50.0 MCV 89.5 fL 80.0-100.0 MCH 30.6 pg 27.0-33.0 MCHC 34.2 g/dL 32.0-36.0 RDW 12.4 % 11.0-15.0 PLATELET COUNT 237 Thousand/uL 140-400 MPV 11.6 fL 7.5-12.5 ABSOLUTE NEUTROPHILS 3789 cells/uL 1500- 7800 ABSOLUTE LYMPHOCYTES 2560 cells/uL 850-3 900 ABSOLUTE MONOCYTES 851 cells/uL 200-950 ABSOLUTE EOSINOPHILS 141 cells/uL 15-500 ABSOLUTE BASOPHILS 59 cells/uL 0-200 NEUTROPHILS 51.2 % NRG LYMPHOCYTES 34.6 % NRG MONOCYTES 11.5 % NRG EOSINOPHILS 1.9 % NRG BASOPHILS 0.8 % NRG Methicillin resistant Staphylococcus aur eus (MRSA) screening culture - 04/30/18 07:15 Methicillin resistant Staphylococcus aureus (MRSA) scr eening culture NG NRG CULTURE, THROAT - 08/25/19 19:00 CULTURE, THROAT SEE NOTE NRG Streptococcus pyogenes antigen detection - 02/01/20 16:12 Streptococcus pyogenes antigen detection NEGATIVE NEGATIVE Influenza virus A and B antigen detectio n - 02/01/20 16:12 FLU RESULT NEGATIVE FOR INFLUENZA A AND B ANTIGENS BY IA NRG Bacterial throat culture - 02/01/20 16:1 2 Bacterial throat culture NBS NRG Complete blood count (CBC) with automate d white blood cell (WBC) differential - 02/01/20 16:30 Blood leukocytes automated count (number/volume) 7.7 10*3/uL 4.3-11.0 Blood erythrocytes automated count (number/volume) 5.08 10*6/uL 4.35-5.85 Venous blood hemoglobin measurement (mass/volume) 15.3 g/dL 13.3-17.7 Blood hematocrit (volume fraction) 45 % 40-54 Automated erythrocyte mean corpuscular volume 89 [ foz_us] 80-99 Automated erythrocyte mean corpuscular h emoglobin (mass per erythrocyte) 30 pg 25-34 Automated erythrocyte mean corpuscular h emoglobin concentration measurement (mass/volume) 34 g/dL 32-36 Automated erythrocyte distribution width ratio 12. 7 % 10.0- 14.5 Automated blood platelet count (count/volume) 214 10*3/uL 130-400 Automated blood platelet mean volume measurement 11.3 [foz_us] 7.4-10.4 Automated blood neutrophils/100 leukocytes 73 % 42-75 Automated blood lymphocytes/100 leukocytes 22 % 12-44 Blood monocytes/100 leukocytes 4 % 0-12 Automated blood eosinophils/100 leukocytes 0 % 0-10 Automated blood basophils/100 leukocytes 1 % 0-10 Blood neutrophils automated count (number/volume) 5.7 10*3 1.8-7.8 Blood lymphocytes automated count (number/volume) 1.7 10*3 1.0-4.0 Blood monocytes automated count (number/volume) 0. 3 10*3 0.0-1.0 Automated eosinophil count 0.0 10*3/uL 0 .0-0.3 Automated blood basophil count (count/volume) 0.0 10*3/uL 0.0-0.1 Serum heterophile antibody titer - 01/31 16:30 Serum heterophile antibody titer NEGATIVE NEGATIVE Comprehensive metabolic panel - 02/01/20 16:30 Serum or plasma sodium measurement (moles/volume) 138 mmol/L 135-145 Serum or plasma potassium measurement (moles/volume) 4.8 mmol/L 3.6-5.0 Serum or plasma chloride measurement (moles/volume) 104 mmol/L 98-107 Carbon dioxide 24 mmol/L 21-32 Serum or plasma anion gap determination (moles/volume) 10 mmol/L 5-14 Serum or plasma urea nitrogen measurement (mass/volume ) 11 mg/dL 7-18 Serum or plasma creatinine measurement (mass/volume) 0.87 mg/dL 0.60-1.30 Serum or plasma urea nitrogen/creatinine mass ratio 13 NRG Serum or plasma creatinine measurement w ith calculation of estimated glomerular filtration rate > NRG Serum or plasma glucose measurement (mass/volume) 96 mg/dL 70-105 Serum or plasma calcium measurement (mass/volume) 9.5 mg/dL 8.5-10.1 Serum or plasma total bilirubin measurement (mass/volu me) 0.3 mg/dL 0.1-1.0 Serum or plasma alkaline phosphatase cedric surement (enzymatic activity/volume) 129 U/L 40-136 Serum or plasma aspartate aminotransfera se measurement (enzymatic activity/volume) 37 U/L 5-34 Serum or plasma alanine aminotransferase measurement (enzymatic activity/volume) 81 U/L 0-55 Serum or plasma protein measurement (mass/volume) 7.3 g/dL 6.4-8.2 Serum or plasma albumin measurement (mass/volume) 4.7 g/dL 3.2-4.5 Encounters ACCT No. Visit Date/Time Discharge Status Pt. Type Provider Facility Loc./Unit Complaint [id number] 01/30/2020 14:40:00 01/30/2020 23:59: 59 CLS Outpatient HOSSEIN RIBEIRO [facility] AUB[facility] PONCE [facility] [id number] 08/25/2019 14:00:00 Document Registration [id number] 04/21/2018 16:00:00 Document Registration [id number] 02/26/2015 08:30:00 02/26/2015 23:59: 59 CLS Outpatient JOCELYNN POE DO [id number] 12/01/2014 12:19:00 12/01/2014 23:59: 59 CLS Outpatient ARMANI KEITH APRN [id number] 10/28/2014 12:12:00 10/28/2014 23:59: 59 CLS Outpatient JOCELYNN POE DO [id number] 09/18/2014 12:53:00 09/18/2014 23:59: 59 CLS Outpatient JOCELYNN POE DO [id number] 09/18/2014 12:09:00 09/18/2014 23:59: 59 CLS Outpatient ANTON MERINO APRN [id number] 09/14/2014 09:30:00 09/14/2014 23:59: 59 CLS Outpatient THANIA WEBB MD [id number] 07/19/2014 15:33:00 07/19/2014 23:59: 59 CLS Outpatient THANIA WEBB MD [id number] 07/11/2014 16:23:00 07/11/2014 23:59: 59 CLS Outpatient ARMANI KEITH APRN [id number] 06/28/2014 18:07:00 06/28/2014 23:59: 59 CLS Outpatient ARMANI KEITH APRN [id number] 05/31/2014 18:23:00 05/31/2014 23:59: 59 CLS Outpatient THANIA WEBB MD [id number] 01/06/2014 10:43:00 01/06/2014 23:59: 59 CLS Outpatient AMI CHAN APRN [id number] 11/28/2013 15:19:00 11/28/2013 23:59: 59 CLS Outpatient THANIA WEBB MD [id number] 11/14/2013 10:21:00 11/14/2013 23:59: 59 CLS Outpatient JOCELYNN POE DO Tre [id number] 11/14/2013 08:35:00 11/14/2013 23:59: 59 CLS Outpatient THANIA WEBB MD [id number] 10/11/2013 08:28:00 10/11/2013 23:59: 59 CLS Outpatient JOCELYNN POE DO Tre [id number] 06/08/2013 17:58:00 06/08/2013 23:59: 59 CLS Outpatient JOCELYNN POE DO Tre [id number] 02/18/2013 08:58:00 02/18/2013 23:59: 59 CLS Outpatient [id number] 12/06/2012 13:31:00 12/06/2012 23:59: 59 CLS Outpatient THANIA WEBB MD [id number] 11/12/2012 13:13:00 11/12/2012 23:59: 59 CLS Outpatient THANIA WEBB MD [id number] 10/25/2012 09:18:00 10/25/2012 23:59: 59 [place] [id number] 09/17/2012 14:59:00 09/17/2012 23:59:5 9 CLS Outpatient THANIA WEBB MD [id number] 05/12/2013 09:42:00 Document Registration [id number] 05/05/2013 11:41:00 Document Registration [id number] 05/02/2013 10:33:00 Document Registration [id number] 04/07/2013 13:58:00 Document Registration [id number] 02/01/2020 16:06:00 020 17:51:00 DIS Emergency ELOISE , LYN K [facility] ER FEVER, COUGH, BODY ACHE S [id number] 04/07/2019 00:10:00 019 23:59:59 CLS Preadmit HOSSEIN RIBEIRO MD [facility] CARD 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 [id number] 01/06/2019 08:02:00 019 00:01:00 DIS Outpatient HOSSEIN RIBEIRO MD [facility] CARD 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
== END 2020-02-01 17:51 | disposition home or self-care (01) ==
LOC: EDUNIT# 16:05 → ER 16:06
DX: J06.9 Acute upper respiratory infection, unspecified (principal); J45.909 Unspecified asthma, uncomplicated; K21.9 Gastro-esophageal reflux disease without esophagitis; G40.909 Epilepsy, unspecified, not intractable, without status epilepticus; F41.9 Anxiety disorder, unspecified; Z88.1 Allergy status to other antibiotic agents; Z88.0 Allergy status to penicillin; Z88.6 Allergy status to analgesic agent; Z88.2 Allergy status to sulfonamides; Z87.891 Personal history of nicotine dependence
CPT/HCPCS: 36415; 80053; 85025; 86308; 87430; 87804

== ENCOUNTER → 2021-02-21 | Outpatient (CLI) | payer SELFPAY ==
[~2021-02-21] MED LIST changes: +DOXY100T2 PO; +PANT20TA18 PO; -PANT20TA3 PO; +PRD10T; +TRIA10.8 NS; +[UNRECOGNIZED DRUG - REMARK]
--- NOTE | 2021-02-21 16:30 | Diagnostic Imaging Report ---
INDICATION: Epigastric pain and chest wall pain PA and lateral chest obtained at 4:18 p.m. and compared to 03/30/2018. Heart and mediastinal silhouette are normal in appearance. The lungs are clear. There is no pneumothorax or pleural fluid. IMPRESSION: Negative chest. Dictated by: Dictated on workstation # [id number]
[2021-02-21 17:05] LABS: BASOPHILS # (AUTO) 0.1 10^3/uL (0.0-0.1); BASOPHILS % (AUTO) 1 % (0-10); EOSINOPHILS # (AUTO) 0.1 10^3/uL (0.0-0.3); EOSINOPHILS % (AUTO) 2 % (0-10); HEMATOCRIT 46 % (40-54); HEMOGLOBIN 15.9 G/DL (13.3-17.7); LYMPHOCYTES # (AUTO) 2.7 X 10^3 (1.0-4.0); LYMPHOCYTES % (AUTO) 34 % (12-44); MEAN CORPUSCULAR HEMOGLOBIN 31 PG (25-34); MEAN CORPUSCULAR HGB CONC 35 G/DL (32-36); MEAN CORPUSCULAR VOLUME 88 FL (80-99); MEAN PLATELET VOLUME 11.4 FL (7.4-10.4); MONOCYTES # (AUTO) 0.8 X 10^3 (0.0-1.0); MONOCYTES % (AUTO) 10 % (0-12); NEUTROPHILS # (AUTO) 4.2 X 10^3 (1.8-7.8); NEUTROPHILS % (AUTO) 53 % (42-75); PLATELET COUNT 225 10^3/uL (130-400); WHITE BLOOD COUNT 7.8 10^3/uL (4.3-11.0)
[2021-02-21 17:18] LABS: BUN/CREATININE RATIO 12; CARBON DIOXIDE 24 MMOL/L (21-32); CHLORIDE 101 MMOL/L (98-107); CREATININE SERUM 0.93 MG/DL (0.60-1.30); GFR ESTIMATED > 60; POTASSIUM 4.3 MMOL/L (3.6-5.0); SODIUM 136 MMOL/L (135-145)
[2021-02-21 17:19] LABS: ALANINE AMINOTRANSFERASE 118 U/L (0-55); ALBUMIN 4.7 GM/DL (3.2-4.5); ALKALINE PHOSPHATASE 131 U/L (40-136); AMYLASE 35 U/L (25-125); BILIRUBIN,TOTAL 0.5 MG/DL (0.1-1.0); CALCIUM 9.5 MG/DL (8.5-10.1); GLUCOSE 90 MG/DL (70-105); LIPASE 25 U/L (8-78); TOTAL PROTEIN 7.2 GM/DL (6.4-8.2)
== END ==
LOC: LAB FS 16:01
PROVIDERS: ATTEND Nurse Practitioner Family
DX: K21.9 Gastro-esophageal reflux disease without esophagitis (principal); R10.13 Epigastric pain; M54.6 Pain in thoracic spine; R19.7 Diarrhea, unspecified
CPT/HCPCS: 36415; 71046; 80053; 82150; 83690; 84484; 85025

== ENCOUNTER 2022-04-29 08:54 | Outpatient (CLI) | payer OTHER ==
[~2022-04-29] VITALS: Ht 190.5 cm; Wt 127.9 kg
[~2022-04-29 08:54] MED LIST changes: -FEXO-46 PO; +NF-ALLE180 PO; -PSEU60TA21; +PSEU60TA87
[2022-04-29] MEDS ORDERED: FLUT15.845 NS (10:12)
[2022-04-29] MEDS ORDERED: SERT150C PO (10:12)
[2022-04-29] MEDS ORDERED: LEVO5TAB28 PO (10:12)
[2022-05-02] MEDS ORDERED: PANT40TA2 PO (15:48)
== END 2022-04-29 10:16 | disposition home or self-care (01) ==
LOC: PREOP 08:54
PROVIDERS: ATTEND Surgery
DX: Z01.818 Encounter for other preprocedural examination (principal)

== ENCOUNTER → 2022-04-30 | Outpatient (CLI) | payer OTHER ==
[~2022-04-30] MED LIST changes: +FLUT15.845 NS; +LEVO5TAB28 PO; +PANT40TA2 PO; +SERT150C PO
--- NOTE | 2022-04-30 12:11 | Diagnostic Imaging Report ---
INDICATION: Abdominal swelling, questionable mass. PROCEDURE: Ultrasound abdomen complete. TECHNIQUE: Multiple real-time grayscale images were obtained of the abdomen in various projections. The liver is upper limits of normal size 17.4 cm is. Portal vein is patent and shows normal direction of flow. No discrete liver mass is detected. Gallbladder is without stones or sludge. No wall thickening or biliary duct dilatation is detected. The visualized pancreas is unremarkable. Spleen is normal in size 12.3 cm. Aorta is nonaneurysmal. IVC is patent. Both right and left kidneys are without calculi or hydronephrosis. There is no ascites. Sonographic interrogation of the area of lump was performed both with and without Valsalva maneuver. No definite mass is seen. No abdominal wall defect is identified. There is no fluid collection. IMPRESSION: Essentially unremarkable abdominal ultrasound. Dictated by: Dictated on workstation # [id number]
== END ==
LOC: RAD 09:45
PROVIDERS: ATTEND Surgery
DX: R19.00 Intra-abdominal and pelvic swelling, mass and lump, unspecified site (principal)
CPT/HCPCS: 76700

== ENCOUNTER 2022-05-02 13:32 | Day surgery (SDC) | payer OTHER ==
[~2022-05-02] VITALS: Ht 191 cm; Wt 128.0 kg
[~2022-05-02 13:32] MED LIST changes: -PANT40TA2 PO
[2022-05-02] MEDS ORDERED: LACTATED RINGERS 1,000 ML IV STA (13:39)
[2022-05-02] MEDS ORDERED: HURRICAINE EXT TUBE (BENZOCAINE) XX PRN (13:45)
[2022-05-02] MEDS ORDERED: LACTATED RINGERS 1,000 ML IV ONE (13:48)
[2022-05-02 14:00] VITALS: BP 137/89
--- NOTE | 2022-05-02 14:41 | Progress Note-Pre Operative ---
Pre-Operative Progress Note H&P Reviewed The H&P was reviewed, patient examined and no changes noted. Date Seen by Provider: May 02, 2022 Time Seen by Provider: 14:40 Date H&P Reviewed: May 02, 2022 Time H&P Reviewed: 14:40 Pre-Operative Diagnosis: n/v gerd, change in bowel habits YUNG NOEL DO May 02, 2022 14:41
[2022-05-02] MEDS ORDERED: MIDAZOLAM 2 MG/2 ML (VERSED) VIAL ONE (15:01)
[2022-05-02] MEDS ORDERED: PROPOFOL INJECTION 50 ML IV ONE (15:01)
[2022-05-02 15:35] VITALS: BP 115/59
--- NOTE | 2022-05-02 15:37 | Anesthesia-General Post-Op ---
MAC Patient Condition Mental Status/LOC: Same as Preop Cardiovascular: Satisfactory Nausea/Vomiting: Absent Respiratory: Satisfactory Pain: Controlled Complications: Absent Post Op Complications Complications None Follow Up Care/Instructions Patient Instructions None needed. Anesthesiology Discharge Order Discharge Order Patient is doing well, no complaints, stable vital signs, no apparent adverse anesthesia problems. No complications reported per nursing. JUSTIN CHURCH CRNA May 02, 2022 15:37
[2022-05-02 15:39] VITALS: BP 122/72
--- NOTE | 2022-05-02 15:46 | Progress Note-Post Operative ---
Post-Operative Progess Note Surgeon (s)/Landfill Gas Technician (s) Surgeon YUNG NOEL DO Landfill Gas Technician: na Pre-Operative Diagnosis n/v gerd, change in bowel habits Post-Operative Diagnosis reflux esophagitis, normal colon Procedure & Operative Findings Date of Procedure 05/02/22 Procedure Performed/Findings egd c biopsies, colonoscopy Anesthesia Type per stove tender Estimated Blood Loss Estimated blood loss (mL): none Specimens/Packing Specimens Removed antrum, ge YUNG NOEL DO May 02, 2022 15:46
[2022-05-02] MEDS ORDERED: PANT40TA2 PO (15:48)
--- NOTE | 2022-05-02 15:48 | Discharge Inst-Simple/Standard ---
Discharge Inst-Standard Discharge Medications New, Converted or Re-Newed RX: Transmitted to Pharmacy Patient Instructions/Follow Up Plan of Care/Instructions/FU: 2 weeks Willi Activity as Tolerated: Yes Discharge Diet: Regular Diet YUNG NOEL DO May 02, 2022 15:48
[2022-05-02 16:05] VITALS: BP 132/84
--- NOTE | 2022-05-03 01:49 | OPERATIVE REPORT ---
DATE OF SERVICE: 05/02/2022 PREOPERATIVE DIAGNOSES: Nausea, vomiting, change in bowel habits. POSTOPERATIVE DIAGNOSES: Reflux esophagitis, normal colon. PROCEDURE: EGD with biopsies, colonoscopy. SURGEON: Yung Márquez DO ANESTHESIA: Per AERONAUTICAL ENGINEERING TEACHER. ESTIMATED BLOOD LOSS: None. COMPLICATIONS: None. INDICATIONS: The patient is a 27-year-old male with nausea, vomiting, GERD symptoms. Also has had change in bowel habits. He understands risks and benefits of procedure and wishes to proceed. Consent was signed in the chart. DESCRIPTION OF PROCEDURE: The patient was taken to the endoscopy suite, placed in left lateral recumbent position. Timeout was performed. Scope was inserted in mouth, down the esophagus, stomach and into the duodenum without difficulty. There were no polyps, masses or ulcerations within the duodenum. Scope was slowly retracted back into the stomach where it was further insufflated. No polyps, masses or ulcerations within the stomach. Biopsy of the antrum was deflated. Scope was retroflexed noting no other pathology. Scope was returned to its normal position, slowly withdrawn to distal esophagus, slight changes consistent with reflux esophagitis. Biopsy of the GE junction was obtained. Scope was slowly retracted back to completely remove noting no other pathology. Digital rectal exam was performed. No palpable polyps, masses or ulcerations. Scope was inserted into the rectum, advanced all the way to cecum with minimal difficulty. Prep was adequate with irrigation and suction. Scope was then slowly retracted back. No polyps, masses or ulcerations within the cecum, ascending, transverse, descending and sigmoid colon. Once in the rectum, scope was retroflexed noting no other pathology. Scope was returned to its normal position, slowly withdrawn until completely removed. The patient tolerated procedure well without any complications, taken to recovery room in stable condition. RECOMMENDATIONS: The patient's Protonix is 20 mg. We will change it to 40 mg daily. We will see how he is doing. He had a normal gallbladder ultrasound, which the ultrasound also inspected a lump on the abdomen. There was no definite mass seen where the lump was present, which he wants to further evaluate. We will get a CT scan of the abdomen and pelvis to further evaluate. Also, if continues to have nausea and vomiting and depending upon pathology, the ultrasound of the gallbladder was without stones or any acute findings. We will consider HIDA scan as well. The patient will follow up. Job ID: [id number] DocumentID: [id number] Dictated Date: 05/02/2022 15:57:23 Chassis Mechanic Date: 05/03/2022 01:48:58 Dictated By: YUNG MÁRQUEZ DO
[2022-05-15] MEDS ORDERED: ACHD5005 PO (11:15)
[2022-05-15] MEDS ORDERED: DOCU-143 PO (11:15)
== END 2022-05-02 16:22 | disposition home or self-care (01) ==
LOC: ENDO 13:32
PROVIDERS: ATTEND Surgery
DX: K21.01 Gastro-esophageal reflux disease with esophagitis, with bleeding (principal); R19.4 Change in bowel habit; R19.09 Other intra-abdominal and pelvic swelling, mass and lump; K31.9 Disease of stomach and duodenum, unspecified; F17.290 Nicotine dependence, other tobacco product, uncomplicated; Z88.0 Allergy status to penicillin; Z88.1 Allergy status to other antibiotic agents; Z88.2 Allergy status to sulfonamides; Z91.040 Latex allergy status; Z79.899 Other long term (current) drug therapy; E66.9 Obesity, unspecified; Z68.35 Body mass index [BMI] 35.0-35.9, adult
CPT/HCPCS: 88305; 88342

== ENCOUNTER → 2022-05-06 | Outpatient (CLI) | payer OTHER ==
[~2022-05-06] MED LIST changes: +PANT40TA2 PO
--- NOTE | 2022-05-06 09:02 | Diagnostic Imaging Report ---
EXAMINATION: CT abdomen and pelvis without contrast. TECHNIQUE: Multiple contiguous axial images were obtained through the abdomen and pelvis without the use of intravenous contrast. All CT scans use one or more of the following dose optimizing techniques: automated exposure control, MA and/or KvP adjustment based on patient size and exam type or iterative reconstruction. HISTORY: GENERALIZED ABD PAIN COMPARISON: None available. FINDINGS: Lung bases: The lung bases are clear. Solid organs: The liver is normal. The gallbladder is normal. There is no biliary ductal dilation. Pancreas is normal. Spleen is normal. Adrenal glands are normal. The kidneys are normal without visualized calculus or hydronephrosis. Bowel: The stomach and small bowel are normal without obstruction. The colon and appendix are normal. Peritoneum: There is no intraperitoneal free fluid or free air. No suspicious lymphadenopathy. Vasculature: Normal without aneurysm. Musculoskeletal: No suspicious osseous lesion or compression fracture. There is a small fat-containing periumbilical hernia. Pelvis: The prostate gland is normal. The urinary bladder is normal. IMPRESSION: 1. No acute abnormality in the abdomen or pelvis. 2. Small fat-containing periumbilical hernia. Dictated by: Dictated on workstation # [id number]
== END ==
LOC: RAD 08:15
PROVIDERS: ATTEND Surgery
DX: K42.9 Umbilical hernia without obstruction or gangrene (principal)
CPT/HCPCS: 74176

== ENCOUNTER 2022-05-08 05:38 | Outpatient (CLI) | payer OTHER ==
[~2022-05-08] VITALS: Ht 190.5 cm; Wt 131.5 kg
[2022-05-13] MEDS ORDERED: FEXO-338 PO (12:47)
[2022-05-13] MEDS ORDERED: SERT-414 PO (12:47)
[2022-05-13] MEDS ORDERED: DIVA500T15 PO (12:47)
[2022-05-13] MEDS ORDERED: HYDR50TA76 PO (12:48)
[2022-05-15] MEDS ORDERED: ACHD5005 PO (11:15)
[2022-05-15] MEDS ORDERED: DOCU-143 PO (11:15)
== END 2022-05-13 13:02 | disposition home or self-care (01) ==
LOC: PREOP 05:38
PROVIDERS: ATTEND Surgery
DX: Z01.818 Encounter for other preprocedural examination (principal)

== ENCOUNTER 2022-05-15 09:04 | Day surgery (SDC) | payer OTHER ==
[~2022-05-15] VITALS: Ht 190.5 cm; Wt 131.5 kg
[2022-05-15] VITALS (9 sets, daily range): BP systolic 125–141; BP diastolic 71–88
[~2022-05-15 09:04] MED LIST changes: +DIVA500T15 PO; +FEXO-338 PO; +HYDR50TA76 PO; +SERT-414 PO
[2022-05-15] MEDS ORDERED: CLINDAMYCIN 600 MG/50 ML IVPB 50 ML IV ONE (09:15)
[2022-05-15] MEDS: LACTATED RINGERS 1,000 ML IV PRN ×2 (09:20→11:07)
[2022-05-15] MEDS ORDERED: proPOfol 200 MG/20 ML (DIPRIVAN) VIAL IV ONE (09:25)
[2022-05-15] MEDS ORDERED: LIDOCAINE PF 2% 5 ML (XYLOCAINE) VIAL ONE (09:25)
[2022-05-15] MEDS ORDERED: fentaNYL INJ 100 MCG/2 ML AMP ONE (09:25)
[2022-05-15] MEDS ORDERED: ONDANSETRON 4 MG/2 ML (SDV) Z0FRAN ONE (09:25)
[2022-05-15] MEDS ORDERED: ROCURONIUM 50 MG/5 ML (ZEMURON) VIAL IV ONE (09:25)
[2022-05-15] MEDS ORDERED: NEOSTIGMINE (BLOXIVERZ ) 1 MG/1ML 10 ML VIAL ONE (09:25)
[2022-05-15] MEDS ORDERED: MIDAZOLAM 2 MG/2 ML (VERSED) VIAL ONE (09:25)
[2022-05-15] MEDS ORDERED: GLYCOPYRROLATE 0.2 MG/ML (ROBINUL) 2 ML VIAL ONE (09:25)
[2022-05-15] MEDS ORDERED: LIDOCAINE/EPI 2% 1:200,00 (XYLOCAINE) 20 ML VIAL ONE (09:48)
--- NOTE | 2022-05-15 09:56 | Progress Note-Pre Operative ---
Pre-Operative Progress Note H&P Reviewed The H&P was reviewed, patient examined and no changes noted on exam. Patient understands risks and benefits of laparoscopic umbilical hernia repair all other indicated procedures and wishes to proceed. Date Seen by Provider: May 15, 2022 Time Seen by Provider: 09:55 Date H&P Reviewed: May 15, 2022 Time H&P Reviewed: 09:55 Pre-Operative Diagnosis: umbilical hernia YUNG NOEL DO May 15, 2022 09:56
[2022-05-15] MEDS ORDERED: SEVOFLURANE (ULTANE) 15 ML INHAL SOLN ONE (11:03)
[2022-05-15] MEDS ORDERED: DOCU-143 PO (11:15)
[2022-05-15] MEDS ORDERED: ACHD5005 PO (11:15)
[2022-05-15] MEDS ORDERED: morphine INJ 10 MG/ML 1ML (SYR OR VIAL) ONE (11:21)
--- NOTE | 2022-05-15 11:23 | Discharge Inst-Simple/Standard ---
Discharge Inst-Standard Discharge Medications New, Converted or Re-Newed RX: Transmitted to Pharmacy Patient Instructions/Follow Up Plan of Care/Instructions/FU: 2 weeks Willi Activity as Tolerated: No Discharge Diet: Regular Diet Other Inst to Patient Follow up Appt: Make appointment for 2 week. Instructions: No lifting greater than 10 pounds. No strenuous activity. May shower in 24 hours, no tub bath or soaking. Use incentive spirometer at home as directed. No Smoking Skin/Wound Care: You have special glue over your incision that will fall off on it's own. Symptoms to Report: Appetite Changes, Extremity Discoloration, Numbness/Tingling, Swelling Increased, Bleeding Excessive, Eyesight Changes, Pain Increased, Urine Color Change, Constipation(Persistent), Fever over 101 degree F, Pain/Pressure in chest, Urinating Difficulty, Cough Up/Vomit Blood, Heart Beat Irreg/Pounding, Pain/Pressure in jaw, Vaginal Bleeding Increase, Cramps in feet or legs, Lightheadedness, Pain/Pressure in shoulder, Diarrhea(Persistent), Memory Changes Suddenly, Questions/Concerns, Weight gain consecutive days, Dizziness/Fainting, Nausea/Vomiting, Shortness of Breath, Weight gain over 2 pounds If questions or concerns contact your physician Or seek help at emergency department. YUNG NOEL DO May 15, 2022 11:22
[2022-05-15] MEDS ORDERED: morphine INJ 10 MG/ML 1ML (SYR OR VIAL) IVP STA (11:29)
--- NOTE | 2022-05-15 11:32 | Progress Note-Post Operative ---
Post-Operative Progess Note Surgeon (s)/Pulverizing And Sifting Operator (s) Surgeon YUNG NOEL DO Pulverizing And Sifting Operator: Dr. Cunningham to assist in retraction dissection and closure. Pre-Operative Diagnosis umbilical hernia Post-Operative Diagnosis incarcerated periumbilical hernia Procedure & Operative Findings Date of Procedure 05/15/22 Procedure Performed/Findings PROCEDURE: Laparoscopic incarcerated periumbilical hernia repair with mesh. COMPLICATIONS: None. INDICATIONS: The patient is a 27, male with an umbilical hernia, which has continued to cause discomfort. The patient was explained the risk and benefits of the procedure and wished to proceed with the procedure. Consent was signed on the chart. DESCRIPTION OF PROCEDURE: The patient was taken into the operating suite, prepped and draped in sterile fashion. Surgical pause was performed. Local anesthetic was infiltrated in left upper quadrant. A 15 blade scalpel was used to make a small skin incision. Cautery was used to dissect down to the fascia, which was then scored and divided the muscle, a tip of glove broke when dissecting and was revmoved in entirety. Then went through the posterior sheath and a balloon trocar was inserted into the abdomen. The abdomen was then insufflated. Periumbilical incarcerated with fat. A 5 mm trocar was placed in the right lower quadrant and a 5 mm trocar was placed in left lower quadrant. Hook cautery was used to dissect out the incarcerated fat from the periumbilical hernia. The falciform was taken down. Echo Ventralight mesh was then inserted in the abdomen grabbed through the stab incision. The balloon was inflated on the mesh. Circumferential tacks were placed with a SecureStrap Tacker. The balloon was then removed and inner crown was created as well. The mesh was tacked with pressure being decreased. The 12 mm fascial defect was then closed using 0 Vicryl. The abdomen was then desufflated,the trocars were removed. The skin was then closed using 4-0 Monocryl in a running subcuticular fashion. The abdomen was washed and dried and Skin Affix was placed over the incisions. The patient tolerated procedure well without any complications. She was taken to recovery room in stable condition. Anesthesia Type general Estimated Blood Loss Estimated blood loss (mL): minimal Specimens/Packing Specimens Removed hernia contents YUNG NOEL DO May 15, 2022 11:32
--- NOTE | 2022-05-15 13:27 | Anesthesia-General Post-Op ---
General Patient Condition Mental Status/LOC: Same as Preop Cardiovascular: Satisfactory Nausea/Vomiting: Absent Respiratory: Satisfactory Pain: Controlled Complications: Absent Post Op Complications Complications None Follow Up Care/Instructions Patient Instructions None needed. Anesthesia/Patient Condition Patient Condition Patient is doing well, no complaints, stable vital signs, no apparent adverse anesthesia problems. No complications reported per nursing. IESHA COTO CRNA May 15, 2022 13:27
== END 2022-05-15 13:00 | disposition home or self-care (01) ==
LOC: SDC 09:04
PROVIDERS: ATTEND Surgery
DX: K42.0 Umbilical hernia with obstruction, without gangrene (principal); K21.9 Gastro-esophageal reflux disease without esophagitis; K92.1 Melena; E66.01 Morbid (severe) obesity due to excess calories; Z68.38 Body mass index [BMI] 38.0-38.9, adult; F17.220 Nicotine dependence, chewing tobacco, uncomplicated; F17.290 Nicotine dependence, other tobacco product, uncomplicated; Z79.899 Other long term (current) drug therapy; Z88.1 Allergy status to other antibiotic agents; Z88.0 Allergy status to penicillin; Z88.2 Allergy status to sulfonamides; Z91.040 Latex allergy status
CPT/HCPCS: 49653; 87081; C1781

== ENCOUNTER 2022-07-16 11:23 | Emergency (ER) | payer OTHER ==
[~2022-07-16] VITALS: Ht 190 cm; Wt 131.0 kg
[~2022-07-16 11:23] MED LIST changes: +ACHD5005 PO; +DOCU-143 PO
--- NOTE | 2022-07-16 11:39 | ED Abdominal Pain ---
General Stated Complaint: SWEATS,FATIGUE,ABD PAIN Source of Information: Patient Exam Limitations: No Limitations History of Present Illness Date Seen by Provider: Jul 16, 2022 Time Seen by Provider: 11:38 Initial Comments This is a 27-year-old male who presented to the ER from [facility] for complaints of Allergies and Home Medications Allergies Coded Allergies: Cephalosporins (Verified Allergy, Unknown, Anaphylaxis, 05/13/22) Penicillins (Verified Allergy, Unknown, Anaphylaxis, 05/13/22) aspirin (Verified Allergy, Unknown, Anaphylaxis, 05/13/22) bee venom protein (honey bee) (Verified Allergy, Unknown, Anaphylaxis, 05/13/22) cephalexin (Verified Allergy, Unknown, Anaphylaxis, 05/13/22) sulfamethoxazole (Verified Allergy, Unknown, Anaphylaxis, 05/13/22) trimethoprim (Verified Allergy, Unknown, Anaphylaxis, 05/13/22) Patient Home Medication List Docusate Sodium (Colace) 100 Mg Capsule, 100 MG PO BID Prescribed by: YUNG NOEL on 05/15/22 1115 Fexofenadine HCl (Fexofenadine HCl) Unknown Strength Tablet, Unknown Dose PO, (Reported) Entered as Reported by: BRIANNA CRENSHAW on 05/13/22 1247 Fluticasone Propionate (Fluticasone Propionate) 50 Mcg/Actuation Bennet.susp, 15.8 ML NS PRN, (Reported) Entered as Reported by: STEFANI VALVERDE on 04/29/22 1012 Hydrocodone/Acetaminophen (Hydrocodone-Acetamin 5-325 mg) 5 Mg-325 Mg Tablet, 1 EACH PO Q4H PRN for PAIN-MODERATE (5-7) Prescribed by: YUNG NOEL on 05/15/22 1116 Hydroxyzine HCl (Hydroxyzine HCl) 50 Mg Tablet, 50 MG PO DAILY, (Reported) Entered as Reported by: BRIANNA CRENSHAW on 05/13/22 1248 Levocetirizine Dihydrochloride (Xyzal) 5 Mg Tablet, 5 MG PO HS, (Reported) Entered as Reported by: STEFANI VALVERDE on 04/29/22 1012 Nortriptyline HCl (Nortriptyline HCl) 25 Mg Capsule, 25 MG PO HS, (Reported) Entered as Reported by: ANITHA BALDERAS on 04/28/18 1336 Pantoprazole Sodium (Protonix) 40 Mg Tablet.dr, 40 MG PO DAILY Prescribed by: YUNG NOEL on 05/02/22 1548 Sertraline HCl (Sertraline HCl) 100 Mg Tablet, 100 MG PO UD, (Reported) Entered as Reported by: BRIANNA CRENSHAW on 05/13/22 1247 Triamcinolone Acetonide (Nasacort) 10.8 Ml Bennet, 2 SPRAYS NS BID Prescribed by: LYN NAVAS on 02/01/20 1737 Past Kexfwsi-Hgqyme-Qfzmxw Hx Immunizations Up To Date Tetanus Booster (TDap): Unknown First/Initial COVID19 Vaccinat: 2020 Second COVID19 Vaccination Jony: AUGUST 2021 Third COVID19 Vaccination Date: NO Seasonal Allergies Seasonal Allergies: Yes Past Medical History Surgeries: Yes Adenoidectomy, Tonsillectomy Respiratory: Yes (ASTHMA A KID) Asthma Currently Using CPAP: No Currently Using BIPAP: No Cardiac: No Neurological: Yes (18 MONTHS APPROXIMATELY) Headaches /Migraines, Seizure Disorder Reproductive Disorders: No Genitourinary: No Gastrointestinal: Yes (UMBILICAL) Gastroesophageal Reflux Musculoskeletal: Yes (LEFT LEG, FINGERS AND TOES ( A LOT OF )) Fractures Endocrine: No 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 0.0oz. 133.697173jq; 36.23 BMI Method:Stated Progress/Results/Core Measures Results/Orders Lab Results Laboratory Tests Test 07/16/22 11:41 07/16/22 11:58 07/16/22 12:58 Range/Units Influenza Type A (RT-PCR) Not Detected Not Detecte Influenza Type B (RT-PCR) Not Detected Not Detecte SARS-CoV-2 RNA (RT-PCR) Not Detected Not Detecte White Blood Count 7.2 4.3-11.0 10^3/uL Red Blood Count 5.46 4.30-5.52 10^6/uL Hemoglobin 15.9 13.3-17.7 g/dL Hematocrit 48 40-54 % Mean Corpuscular Volume 88 80-99 fL Mean Corpuscular Hemoglobin 29 25-34 pg Mean Corpuscular Hemoglobin Concent 33 32-36 g/dL Red Cell Distribution Width 12.7 10.0-14.5 % Platelet Count 284 130-400 10^3/uL Mean Platelet Volume 10.2 9.0-12.2 fL Immature Granulocyte % (Auto) 1 % Neutrophils (%) (Auto) 57 42-75 % Lymphocytes (%) (Auto) 32 12-44 % Monocytes (%) (Auto) 7 0-12 % Eosinophils (%) (Auto) 2 0-10 % Basophils (%) (Auto) 1 0-10 % Neutrophils # (Auto) 4.1 1.8-7.8 10^3/uL Lymphocytes # (Auto) 2.3 1.0-4.0 10^3/uL Monocytes # (Auto) 0.5 0.0-1.0 10^3/uL Eosinophils # (Auto) 0.2 0.0-0.3 10^3/uL Basophils # (Auto) 0.1 0.0-0.1 10^3/uL Immature Granulocyte # (Auto) 0.1 0.0-0.1 10^3/uL Sodium Level 140 135-145 MMOL/L Potassium Level 4.4 3.6-5.0 MMOL/L Chloride Level 104 98-107 MMOL/L Carbon Dioxide Level 27 21-32 MMOL/L Anion Gap 9 5-14 MMOL/L Blood Urea Nitrogen 11 7-18 MG/DL Creatinine 1.01 0.60-1.30 MG/DL Estimat Glomerular Filtration Rate 104 BUN/Creatinine Ratio 11 Glucose Level 85 70-105 MG/DL Calcium Level 9.7 8.5-10.1 MG/DL Corrected Calcium 8.5-10.1 MG/DL Total Bilirubin 0.4 0.1-1.0 MG/DL Aspartate Amino Transf (AST/SGOT) 33 5-34 U/L Alanine Aminotransferase (ALT/SGPT) 56 H 0-55 U/L Alkaline Phosphatase 125 40-136 U/L C-Reactive Protein High Sensitivity 0.08 0.00-0.50 MG/DL Total Protein 7.5 6.4-8.2 GM/DL Albumin 4.6 H 3.2-4.5 GM/DL Thyroid Stimulating Hormone (TSH) 1.89 0.35-4.94 UIU/ML Urine Color YELLOW Urine Clarity CLEAR Urine pH 6.0 5-9 Urine Specific [place] 1.010 L 1.016-1.022 Urine Protein NEGATIVE NEGATIVE Urine Glucose (UA) NEGATIVE NEGATIVE Urine Ketones NEGATIVE NEGATIVE Urine Nitrite NEGATIVE NEGATIVE Urine Bilirubin NEGATIVE NEGATIVE Urine Urobilinogen 0.2 < = 1.0 MG/DL Urine Leukocyte Esterase NEGATIVE NEGATIVE Urine RBC (Auto) NEGATIVE NEGATIVE Urine RBC NONE /HPF Urine WBC NONE /HPF Urine Crystals NONE /LPF Urine Bacteria NEGATIVE /HPF Urine Casts NONE /LPF Urine Mucus NEGATIVE /LPF Urine Culture Indicated NO My Orders Orders - RAMBO MEDINA APRN Cbc With Automated Diff (07/16/22 11:32) Comprehensive Metabolic Panel (07/16/22 11:32) Hs C Reactive Protein (07/16/22 11:32) Ed Iv/Invasive Line Start (07/16/22 11:32) Ua Culture If Indicated (07/16/22 11:32) Ct Abdomen/Pelvis W (07/16/22 11:32) Covid 19 Inhouse Test (07/16/22 11:32) Influenza A And B By Pcr (07/16/22 11:32) Iohexol Injection (Omnipaque 350 Mg/Ml 1 (07/16/22 11:45) Received Contrast (Hold Metformin- Contr (07/16/22 11:45) Ns (Ivpb) (Sodium Chloride 0.9% Ivpb Bag (07/16/22 11:45) Thyroid Stimulating Hormone (07/16/22 11:56) Fentanyl Inj (Sublimaze Injection) (07/16/22 12:15) Medications Given in ED Current Medications Medications Dose Ordered Sig/Danielle Route Start Time Stop Time Status Last Admin Dose Admin Fentanyl Citrate 50 mcg ONCE ONCE IVP 07/16/22 12:15 07/16/22 12:16 DC 07/16/22 12:20 50 MCG Iohexol 100 ml ONCE ONCE IV 07/16/22 11:45 07/16/22 11:46 DC 07/16/22 12:10 100 ML Sodium Chloride 100 ml ONCE ONCE IV 07/16/22 11:45 07/16/22 11:46 DC 07/16/22 12:10 80 ML Vital Signs/I&O 07/16/22 11:30 Temp 36.7 Pulse 83 Resp 16 B/P (MAP) 128/93 (105) Pulse Ox 98 O2 Delivery Room Air Diagnostic Imaging Diagonstic Imaging: CT Plain Films/CT/US/NM/MRI: abdomen Comments [facility] [place], [place] NAME: SD JALLOH [facility] REC#: [id number] PT STATUS: REG ER : 1995 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 TECHNIQUE: Multiple contiguous axial images were obtained through the abdomen and pelvis after administration of intravenous contrast. Auto Exposure Controls were utilized during the CT exam to meet ALARA standards for radiation dose reduction. All CT scans use one or more of the following dose optimizing techniques: automated exposure control, MA and/or KvP adjustment based on patient size and exam type or iterative reconstruction. INDICATION: Right lower quadrant pain. COMPARISON: Comparison is made with prior CT from 05/06/2022. FINDINGS: The lung bases are clear. No discrete liver mass is detected. Gallbladder is unremarkable. There is no biliary ductal dilatation. Pancreas and spleen are unremarkable. No adrenal mass is detected. Kidneys are unremarkable. There is no hydronephrosis. Aorta is nonaneurysmal. Small and large bowel loops are normal in caliber. There is no obstruction. The appendix is visualized in the right lower quadrant and appears unremarkable. No free fluid or fluid collection is seen. The bladder and prostate are unremarkable. No inflammatory changes are seen. IMPRESSION: Unremarkable CT of the abdomen and pelvis with contrast. There is no CT evidence of acute appendicitis. Dictated on workstation # [id number] Dict: 07/16/22 1216 Trans: 07/16/22 1222 [id number] Interpreted by: CLINT THACKER MD Electronically signed by: Reviewed: Reviewed by Me Departure Impression Primary Impression: Abdominal pain Additional Impression: Diarrhea Disposition: 01 HOME, SELF-CARE Condition: Improved Departure-Patient Inst. Decision time for Depature: 13:50 Referrals: HOSSEIN RIBEIRO MD (PCP/Family) Primary Care Physician Patient Instructions: Abdominal Pain, Adult ED Add. Discharge Instructions: Plan: 1. Follow up with Dr. Ribeiro next week. 2. Continue to drink plenty of fluids. 3. Return to ER for any new, concerning, or worsening symptoms. 4. You were provided copies of your labs and imaging from your ER visit today. Copy Copies To 1: HOSSEIN RIBEIRO MD, STORMY D APRN Jul 16, 2022 11:39
[2022-07-16] MEDS ORDERED: HOLD METFORMIN - RECEIVED CONTRAST 20 ML VIAL IV SCH (11:45)
[2022-07-16] MEDS ORDERED: NS 100 ML (IVPB) BAG IV ONE (11:45)
[2022-07-16] MEDS ORDERED: IOHEXOL 350 MG/ML 100 ML (OMNIPAQUE 350) VIAL IV ONE (11:45)
[2022-07-16 12:10] LABS: BASOPHILS # (AUTO) 0.1 10^3/uL (0.0-0.1); BASOPHILS % (AUTO) 1 % (0-10); EOSINOPHILS # (AUTO) 0.2 10^3/uL (0.0-0.3); EOSINOPHILS % (AUTO) 2 % (0-10); HEMATOCRIT 48 % (40-54); HEMOGLOBIN 15.9 g/dL (13.3-17.7); LYMPHOCYTES # (AUTO) 2.3 10^3/uL (1.0-4.0); LYMPHOCYTES % (AUTO) 32 % (12-44); MEAN CORPUSCULAR HEMOGLOBIN 29 pg (25-34); MEAN CORPUSCULAR HGB CONC 33 g/dL (32-36); MEAN CORPUSCULAR VOLUME 88 fL (80-99); MEAN PLATELET VOLUME 10.2 fL (9.0-12.2); MONOCYTES # (AUTO) 0.5 10^3/uL (0.0-1.0); MONOCYTES % (AUTO) 7 % (0-12); NEUTROPHILS # (AUTO) 4.1 10^3/uL (1.8-7.8); NEUTROPHILS % (AUTO) 57 % (42-75); PLATELET COUNT 284 10^3/uL (130-400); WHITE BLOOD COUNT 7.2 10^3/uL (4.3-11.0)
[2022-07-16] MEDS ORDERED: fentaNYL INJ 100 MCG/2 ML AMP IVP ONE (12:15)
--- NOTE | 2022-07-16 12:23 | Diagnostic Imaging Report ---
PROCEDURE: CT abdomen and pelvis with contrast. TECHNIQUE: Multiple contiguous axial images were obtained through the abdomen and pelvis after administration of intravenous contrast. Auto Exposure Controls were utilized during the CT exam to meet ALARA standards for radiation dose reduction. All CT scans use one or more of the following dose optimizing techniques: automated exposure control, MA and/or KvP adjustment based on patient size and exam type or iterative reconstruction. INDICATION: Right lower quadrant pain. COMPARISON: Comparison is made with prior CT from 05/06/2022. FINDINGS: The lung bases are clear. No discrete liver mass is detected. Gallbladder is unremarkable. There is no biliary ductal dilatation. Pancreas and spleen are unremarkable. No adrenal mass is detected. Kidneys are unremarkable. There is no hydronephrosis. Aorta is nonaneurysmal. Small and large bowel loops are normal in caliber. There is no obstruction. The appendix is visualized in the right lower quadrant and appears unremarkable. No free fluid or fluid collection is seen. The bladder and prostate are unremarkable. No inflammatory changes are seen. IMPRESSION: Unremarkable CT of the abdomen and pelvis with contrast. There is no CT evidence of acute appendicitis. Dictated by: Dictated on workstation # [id number]
[2022-07-16 12:27] LABS: ALBUMIN 4.6 GM/DL (3.2-4.5); CHLORIDE 104 MMOL/L (98-107); POTASSIUM 4.4 MMOL/L (3.6-5.0); SODIUM 140 MMOL/L (135-145)
[2022-07-16 12:28] LABS: CALCIUM 9.7 MG/DL (8.5-10.1)
[2022-07-16 12:30] LABS: GLUCOSE 85 MG/DL (70-105); TOTAL PROTEIN 7.5 GM/DL (6.4-8.2)
[2022-07-16 12:31] LABS: CARBON DIOXIDE 27 MMOL/L (21-32)
[2022-07-16 12:32] LABS: BILIRUBIN,TOTAL 0.4 MG/DL (0.1-1.0)
[2022-07-16 12:33] LABS: ALKALINE PHOSPHATASE 125 U/L (40-136); CREATININE SERUM 1.01 MG/DL (0.60-1.30); GFR ESTIMATED 104
[2022-07-16 12:34] LABS: BUN/CREATININE RATIO 11
[2022-07-16 12:36] LABS: ALANINE AMINOTRANSFERASE 56 U/L (0-55)
[2022-07-16 13:09] LABS: BILIRUBIN,URINE NEGATIVE (NEGATIVE); CLARITY,URINE CLEAR; COLOR,URINE YELLOW; GLUCOSE, URINE (UA) NEGATIVE (NEGATIVE); KETONES,URINE NEGATIVE (NEGATIVE); LEUKOCYTE ESTERASE ,URINE NEGATIVE (NEGATIVE); NITRITE,URINE NEGATIVE (NEGATIVE); PROTEIN,URINE NEGATIVE (NEGATIVE)
[2022-07-16 13:29] LABS: BACTERIA,URINE NEGATIVE /HPF
[2022-07-16 13:55] VITALS: BP 137/96
== END 2022-07-16 13:55 | disposition home or self-care (01) ==
LOC: EDUNIT# 11:23 → ER 11:24
DX: R10.9 Unspecified abdominal pain (principal); R19.7 Diarrhea, unspecified; Z20.822 Contact with and (suspected) exposure to COVID-19
CPT/HCPCS: 36415; 74177; 80053; 81000; 84443; 85025; 86141; 87636; 96374